=== PATIENT | male | born 1945 | race Caucasian/White ===

== ENCOUNTER 2017-02-20 15:40 | Inpatient (IN) | payer MEDICARE ==
[2017-02-20] MEDS ORDERED: SODIUM CHLORIDE 0.9% 500 ML IV STA (18:05)
[2017-02-20] MEDS ORDERED: ASPIRIN 325 MG TAB PO STA (18:05)
[2017-02-20] MEDS ORDERED: methylPREDNISolone SOD SUCCI 125 MG/2 ML VIAL IV STA (18:05)
[2017-02-20] MEDS ORDERED: IPRATROPIUM-ALBUTEROL 3 ML NEB INHALATION STA (18:06)
[2017-02-20 18:25] LABS: Basophils # (A) 0.1 k/uL (0-0.2); Basophils % (A) 1 %; CH 32.7; Eosinophils # (A) 0.1 k/uL (0-0.7); Eosinophils % (A) 1 %; HCT 57.5 % (39.0-53.0); HDW 2.81; HGB 19.5 gm/dL (13.0-17.5); Luc # (Auto) 0.14; Luc % (Auto) 2; Lymphocytes # (A) 1.1 k/uL (1.0-4.8); Lymphocytes % (A) 14 %; MCH 31.9 pg (25.0-35.0); MCV 93.9 fL (80.0-100.0); Mean Platelet Volume 7.5; Monocytes # (A) 0.4 k/uL (0-1.0); Monocytes % (A) 6 %; Neutrophils # (A) 5.8 k/uL (1.3-7.7); Neutrophils % (A) 77 %; RBC 6.12 m/uL (4.30-5.90); RDW 12.9 % (11.5-15.5); WBC 7.6 k/uL (3.8-10.6)
--- NOTE | 2017-02-20 18:35 | XR ---
EXAMINATION TYPE: XR chest 2V DATE OF EXAM: 02/20/2017 6:19 PM COMPARISON: 08/02/2015 HISTORY: Short of breath TECHNIQUE: Frontal and lateral views of the chest are obtained. FINDINGS: There is no heart failure nor confluent pneumonic infiltrate. Thoracic aorta is atheromato us. There are no hilar masses. Costophrenic angles are clear. There is spurring in the thoracic spine . There is calcification over the left posterior rib consistent with healing rib fracture. IMPRESSION: No active cardiopulmonary disease. Calcification in the left midlung field similar to old exam consistent with granuloma or healing fracture. No adverse change compared to old exam.
[2017-02-20 18:36] LABS: ALT 33 U/L (21-72); AST 26 U/L (17-59); Alkaline Phosphatase 57 U/L (38-126); Anion Gap 11 mmol/L; Blood Urea Nitrogen 16 mg/dL (9-20); Calcium 9.4 mg/dL (8.4-10.2); Carbon Dioxide 33 mmol/L (22-30); Chloride 97 mmol/L (98-107); Glucose 120 mg/dL (74-99); Non-African American GFR(MDRD) >60 (>60 ml/min/1.73 sqM); Potassium 3.7 mmol/L (3.5-5.1); Sodium 141 mmol/L (137-145); Total Bilirubin 1.3 mg/dL (0.2-1.3); Total Protein 7.5 g/dL (6.3-8.2)
--- NOTE | 2017-02-20 18:58 | ED ---
General Adult HPI - General Chief complaint: Shortness of Breath Stated complaint: SOB/COPD Patient Source: patient Mode of arrival: wheelchair Limitations: no limitations - History of Present Illness Initial comments: 71-year-old male with past medical history of COPD without home O2 presented for evaluation of shortness of breath that has been progressively worsening over the last 7 days. He denies any sick contacts but states that during this time he has also developed a cough with mild chest discomfort and wheezing respirations. He states that he does not have an inhaler at home to use although he had been prescribed on before. He denies any sick contacts, fevers, chills, nausea, vomiting. - Related Data Home Medications Medication Instructions Recorded Confirmed Artificial Tears-Hypromellose 1 drops BOTH EYES TID PRN 09/05/16 02/20/17 [Artificial Tear Drops] Metoprolol Succinate [Toprol XL] 50 mg PO DAILY 09/05/16 02/20/17 Albuterol Inhaler [Ventolin Hfa 1 - 2 puff INHALATION RT-QID PRN 02/20/17 Inhaler] FLUoxetine HCL [PROzac] 30 mg PO DAILY 02/20/17 02/20/17 Previous Rx's Medication Instructions Recorded amLODIPine [Norvasc] 10 mg PO DAILY #14 tab 09/07/15 LORazepam [Ativan] 0.5 mg PO DAILY PRN #30 tab 09/20/16 Zolpidem [Ambien] 10 mg PO HS #30 tab 09/20/16 lamoTRIgine [LaMICtal] 100 mg PO DAILY #30 tab 09/20/16 Allergies Allergy/AdvReac Type Severity Reaction Status Date / Time No Known Allergies Allergy Verified 02/20/17 18:33 Review of Systems ROS Statement: Those systems with pertinent positive or pertinent negative responses have been documented in the HPI. ROS Other: All systems not noted in ROS Statement are negative. Constitutional: Denies: fever, chills, weakness, weight change Eyes: Denies: eye pain, eye discharge ENT: Denies: ear pain, throat pain Respiratory: Reports: cough, dyspnea, wheezes. Denies: hemoptysis, stridor Cardiovascular: Reports: chest pain, dyspnea on exertion. Denies: palpitations Endocrine: Denies: fatigue, polydipsia, polyuria Gastrointestinal: Denies: abdominal pain, nausea, vomiting Genitourinary: Denies: urgency, dysuria Musculoskeletal: Denies: back pain, myalgia Skin: Denies: rash, lesions Neurological: Denies: headache, weakness Psychiatric: Reports: anxiety. Denies: depression Hematological/Lymphatic: Denies: easy bleeding, easy bruising Past Medical History Past Medical History: Heart Failure, COPD, GERD/Reflux, Hypertension History of Any Multi-Drug Resistant Organisms: None Reported Past Surgical History: Adenoidectomy Additional Past Surgical History / Comment(s): left wrist surgery 12 years ago, (Pt has AMS, denies adenoidectomy) Past Anesthesia/Blood Transfusion Reactions: No Reported Reaction Past Psychological History: Anxiety, Bipolar, Depression Additional Psychological History / Comment(s): Patient caregiver states that symptoms have been worse since incarceration in June, previous suicide attempt by cutting left wrist "years ago", per patient. Smoking Status: Current every day smoker Past Alcohol Use History: Occasional Additional Past Alcohol Use History / Comment(s): pt states he used to drink daily but quit 6 months ago Past Drug Use History: None Reported - Past Family History Father Family Medical History: Diabetes Mellitus General Exam Limitations: no limitations General appearance: alert, in no apparent distress Head exam: Present: atraumatic, normocephalic, normal inspection Eye exam: Present: normal appearance, PERRL, EOMI. Absent: scleral icterus, conjunctival injection, periorbital swelling ENT exam: Present: normal exam, mucous membranes moist Neck exam: Present: normal inspection. Absent: tenderness, meningismus, lymphadenopathy Respiratory exam: Present: wheezes, accessory muscle use. Absent: respiratory distress, rales, rhonchi, stridor, chest wall tenderness, decreased breath sounds, prolonged expiratory Cardiovascular Exam: Present: regular rate, normal rhythm, normal heart sounds. Absent: systolic murmur, diastolic murmur, rubs, gallop, clicks GI/Abdominal exam: Present: soft, normal bowel sounds. Absent: distended, tenderness, guarding, rebound, rigid Rectal exam: Present: deferred Extremities exam: Present: normal inspection, full ROM, normal capillary refill. Absent: tenderness, pedal edema, joint swelling, calf tenderness Back exam: Present: normal inspection Neurological exam: Present: alert, oriented X3, CN II-XII intact Psychiatric exam: Present: normal affect, normal mood Skin exam: Present: warm, dry, intact, normal color. Absent: rash Course Vital Signs 02/20/17 02/20/17 02/20/17 16:22 18:05 18:21 Temperature 98.1 F Pulse Rate 77 73 Respiratory 18 26 H Rate Blood Pressure 134/81 O2 Sat by Pulse 90 L Oximetry 02/20/17 02/20/17 02/20/17 18:38 19:08 20:07 Temperature Pulse Rate 72 82 80 Respiratory 22 16 Rate Blood Pressure 104/72 137/88 O2 Sat by Pulse 91 L 93 L Oximetry 02/20/17 21:12 Temperature Pulse Rate 78 Respiratory 16 Rate Blood Pressure 132/85 O2 Sat by Pulse 93 L Oximetry EKG Findings - EKG Comments: EKG Findings:: Normal sinus rhythm with ventricular rate of 70, HUMBERTO 184, QRS 92 , QT/QTc 426/460. Medical Decision Making - Medical Decision Making 71-year-old male with past medical history of COPD without home oxygen presented for evaluation of progressively worsening shortness of breath over the last 7 days. He also states he's had mild chest discomfort, raspy respirations, and cough. He doesn't use inhalers. On physical examination he is wheezy throughout all lung cevallos and has no accessory muscle use. Otherwise physical exam is benign. Concern for pneumonia versus URI versus acute exacerbation of COPD. We'll obtain chest x-ray, EKG, labs and provide IV fluids, aspirin, steroids, and breathing treatments. Labs revealed no significant abnormalities and chest x-ray showed no acute process. The patient was reevaluated and continued to have wheezing throughout all cevallos. There is only mild accessory muscle use but improved from earlier. The patient continued to have desaturations when getting up or ambulating. Given his continued wheezing and shortness of breath will admit for acute exacerbation COPD. Dr. Mott was updated on the status of this patient and he accepted the admission with request for consult with pulmonology. Admission are placed in bed request submitted. - Lab Data Result diagrams: 02/20/17 18:00 02/20/17 18:00 Lab Results 02/20/17 02/20/17 02/20/17 Range/Units 18:00 18:00 18:00 WBC 7.6 (3.8-10.6) k/uL RBC 6.12 H (4.30-5.90) m/uL Hgb 19.5 H (13.0-17.5) gm/dL Hct 57.5 H (39.0-53.0) % MCV 93.9 (80.0-100.0) fL MCH 31.9 (25.0-35.0) pg MCHC 34.0 (31.0-37.0) g/dL RDW 12.9 (11.5-15.5) % Plt Count 249 (150-450) k/uL Neutrophils % 77 % Lymphocytes % 14 % Monocytes % 6 % Eosinophils % 1 % Basophils % 1 % Neutrophils # 5.8 (1.3-7.7) k/uL Lymphocytes # 1.1 (1.0-4.8) k/uL Monocytes # 0.4 (0-1.0) k/uL Eosinophils # 0.1 (0-0.7) k/uL Basophils # 0.1 (0-0.2) k/uL Sodium 141 (137-145) mmol/L Potassium 3.7 (3.5-5.1) mmol/L Chloride 97 L (98-107) mmol/L Carbon Dioxide 33 H (22-30) mmol/L Anion Gap 11 mmol/L BUN 16 (9-20) mg/dL Creatinine 0.99 (0.66-1.25) mg/dL Est GFR (MDRD) Af Amer >60 (>60 ml/min/1.73 sqM) Est GFR (MDRD) Non-Af >60 (>60 ml/min/1.73 sqM) Glucose 120 H (74-99) mg/dL Calcium 9.4 (8.4-10.2) mg/dL Total Bilirubin 1.3 (0.2-1.3) mg/dL AST 26 (17-59) U/L ALT 33 (21-72) U/L Alkaline Phosphatase 57 (38-126) U/L Troponin I (0.000-0.034) ng/mL NT-Pro-B Natriuret Pep pg/mL Total Protein 7.5 (6.3-8.2) g/dL Albumin 4.1 (3.5-5.0) g/dL Influenza Type A RNA Not Detected (Not Detectd) Influenza Type B (PCR) Not Detected (Not Detectd) 02/20/17 02/20/17 Range/Units 18:00 18:00 WBC (3.8-10.6) k/uL RBC (4.30-5.90) m/uL Hgb (13.0-17.5) gm/dL Hct (39.0-53.0) % MCV (80.0-100.0) fL MCH (25.0-35.0) pg MCHC (31.0-37.0) g/dL RDW (11.5-15.5) % Plt Count (150-450) k/uL Neutrophils % % Lymphocytes % % Monocytes % % Eosinophils % % Basophils % % Neutrophils # (1.3-7.7) k/uL Lymphocytes # (1.0-4.8) k/uL Monocytes # (0-1.0) k/uL Eosinophils # (0-0.7) k/uL Basophils # (0-0.2) k/uL Sodium (137-145) mmol/L Potassium (3.5-5.1) mmol/L Chloride (98-107) mmol/L Carbon Dioxide (22-30) mmol/L Anion Gap mmol/L BUN (9-20) mg/dL Creatinine (0.66-1.25) mg/dL Est GFR (MDRD) Af Amer (>60 ml/min/1.73 sqM) Est GFR (MDRD) Non-Af (>60 ml/min/1.73 sqM) Glucose (74-99) mg/dL Calcium (8.4-10.2) mg/dL Total Bilirubin (0.2-1.3) mg/dL AST (17-59) U/L ALT (21-72) U/L Alkaline Phosphatase (38-126) U/L Troponin I <0.012 (0.000-0.034) ng/mL NT-Pro-B Natriuret Pep 288 pg/mL Total Protein (6.3-8.2) g/dL Albumin (3.5-5.0) g/dL Influenza Type A RNA (Not Detectd) Influenza Type B (PCR) (Not Detectd) Disposition Clinical Impression: Acute exacerbation of chronic obstructive pulmonary disease (COPD) Disposition: ADMITTED IP TO THIS [facility] Decision to Admit Reason: Admit from EC Decision Date: 02/20/17 Decision Time: 20:26
[2017-02-20] MEDS ORDERED: MORPHINE SULFATE 4 MG/ML SYRINGE IV PRN (20:14)
[2017-02-20] MEDS ORDERED: NALOXONE 0.4 MG/ML 1 ML VIAL IV PRN (20:14)
[2017-02-20] MEDS ORDERED: KETOROLAC 30 MG/ML 1 ML VIAL IVP PRN (20:14)
[2017-02-20] MEDS ORDERED: ACETAMINOPHEN TAB 325 MG TAB PO PRN (20:14)
[2017-02-20] MEDS ORDERED: ALBUTEROL NEBULIZED 2.5 MG/3 ML INHALATION PRN (20:17)
[2017-02-20] MEDS: SODIUM CHLORIDE 0.9% 1,000 ML IV SCH (21:11)
[2017-02-20] MEDS: ZOLPIDEM 10 MG TAB PO SCH (23:05)
[2017-02-21] MEDS: SODIUM CHLORIDE 0.9% 1,000 ML IV SCH ×2 (05:35→15:43)
[2017-02-21 09:39] LABS: Basophils % (A) 0 %; CH 32.4; CHCM 34.3; Eosinophils % (A) 0 %; HCT 52.2 % (39.0-53.0); HDW 2.74; HGB 17.8 gm/dL (13.0-17.5); Luc # (Auto) 0.03; Luc % (Auto) 1; Lymphocytes # (A) 0.6 k/uL (1.0-4.8); Lymphocytes % (A) 10 %; MCH 32.4 pg (25.0-35.0); MCHC 34.2 g/dL (31.0-37.0); MCV 94.8 fL (80.0-100.0); Mean Platelet Volume 6.6; Monocytes # (A) 0.1 k/uL (0-1.0); Monocytes % (A) 2 %; Neutrophils # (A) 4.8 k/uL (1.3-7.7); Neutrophils % (A) 87 %; WBC 5.5 k/uL (3.8-10.6); WBC (Perox) 5.65
[2017-02-21] MEDS: FLUoxetine HCL 10 MG CAP PO SCH (09:47)
[2017-02-21] MEDS: lamoTRIgine 100 MG TAB PO SCH (09:47)
[2017-02-21] MEDS: METOPROLOL SUCCINATE (ER) 50 MG TAB.ER.24H PO SCH (09:47)
[2017-02-21] MEDS: amLODIPine 10 MG TAB PO SCH (09:47)
--- NOTE | 2017-02-21 10:13 | XR ---
EXAMINATION TYPE: XR chest 2V DATE OF EXAM: 02/21/2017 7:16 AM COMPARISON: Prior chest x-ray 20 February 2017 HISTORY: Shortness of breath TECHNIQUE: Frontal and lateral views of the chest are obtained. FINDINGS: No interval change. Cardiomediastinal silhouette, pulmonary vascularity and dorian are stabl e. No evident pneumonia, pneumothorax, or pleural effusion. Prominent lung volume may be indicative o f COPD. Interstitium mildly increased. IMPRESSION: Mild interstitial lung disease, correlate to exclude pulmonary venous hypertension and i nterstitial edema. Follow-up recommended.
[2017-02-21 10:21] LABS: Anion Gap 12 mmol/L; Blood Urea Nitrogen 18 mg/dL (9-20); Calcium 9.1 mg/dL (8.4-10.2); Carbon Dioxide 27 mmol/L (22-30); Chloride 101 mmol/L (98-107); Glucose 222 mg/dL (74-99); Non-African American GFR(MDRD) >60 (>60 ml/min/1.73 sqM); Potassium 4.2 mmol/L (3.5-5.1); Sodium 140 mmol/L (137-145)
--- NOTE | 2017-02-21 11:15 | P.HPIM ---
History of Present Illness -year-old male presented the emergency room with complaints of increasing shortness of breath. Patient states he is long history of COPD patient does have a history of smoking. Recent history of EtOH abuse Review of Systems Respiratory: Reports cough, Reports dyspnea, Reports wheezing Past Medical History Past Medical History: Heart Failure, COPD, GERD/Reflux, Hypertension History of Any Multi-Drug Resistant Organisms: None Reported Past Surgical History: Adenoidectomy Additional Past Surgical History / Comment(s): left wrist surgery 12 years ago, (Pt has AMS, denies adenoidectomy) Past Anesthesia/Blood Transfusion Reactions: No Reported Reaction Past Psychological History: Anxiety, Bipolar, Depression Additional Psychological History / Comment(s): Patient caregiver states that symptoms have been worse since incarceration in June, previous suicide attempt by cutting left wrist "years ago", per patient. Smoking Status: Current every day smoker Past Alcohol Use History: Occasional Additional Past Alcohol Use History / Comment(s): pt states he used to drink daily but quit 6 months ago Past Drug Use History: None Reported - Past Family History Father Family Medical History: Diabetes Mellitus Medications and Allergies Home Medications Medication Instructions Recorded Confirmed Type Artificial Tears-Hypromellose 1 drops BOTH EYES TID PRN 09/05/16 02/20/17 History [Artificial Tear Drops] Metoprolol Succinate [Toprol XL] 50 mg PO DAILY 09/05/16 02/20/17 History Albuterol Inhaler [Ventolin Hfa 1 - 2 puff INHALATION RT-QID PRN 02/20/17 History Inhaler] FLUoxetine HCL [PROzac] 30 mg PO DAILY 02/20/17 02/20/17 History Allergies Allergy/AdvReac Type Severity Reaction Status Date / Time No Known Allergies Allergy Verified 02/20/17 18:33 Physical Exam Vitals: Vital Signs Temp Pulse Pulse Resp BP BP Pulse Ox 02/21/17 07:00 97.8 F 79 18 159/83 90 L 02/20/17 22:15 97.8 F 83 14 136/85 93 L 02/20/17 21:12 78 16 132/85 93 L Intake and Output 02/20/17 02/21/17 02/21/17 22:59 06:59 14:59 Output Total 100 200 Balance -100 -200 Output: Urine 100 200 Other: # Voids 2 1 Weight 116.12 kg - Constitutional General appearance: obese - EENT Eyes: PERRLA Ears: bilateral: normal - Neck Neck: normal ROM - Respiratory Respiratory: bilateral: diminished - Cardiovascular Rhythm: regular - Gastrointestinal General gastrointestinal: soft - Integumentary Integumentary: normal - Neurologic Neurologic: CNII-XII intact - Psychiatric Psychiatric: A&O x's 3, appropriate affect, intact judgment & insight Results CBC & Chem 7: 02/21/17 08:41 02/21/17 08:41 Labs: Abnormal Lab Results - Last 24 Hours (Table) 02/21/17 02/21/17 Range/Units 08:41 08:41 Hgb 17.8 H (13.0-17.5) gm/dL Lymphocytes # 0.6 L (1.0-4.8) k/uL Glucose 222 H (74-99) mg/dL Chest x-ray: report reviewed Thrombosis Risk Factor Assmnt - Choose All That Apply Each Factor Represents 1 point: Obesity (BMI >25) Each Risk Factor Represents 2 Points: Age 61-74 years Thrombosis Risk Factor Assessment Total Risk Factor Score: 3 Thrombosis Risk Factor Assessment Level: Moderate Risk Assessment and Plan Plan: Assessment Acute exacerbation of chronic COPD Nicotine dependence History of GERD History of hypertension Bipolar history Plan Consultation with pulmonology
[2017-02-21] MEDS ORDERED: RX INFO: IV CONTRAST WAS GIVEN 1 EACH MISC MISCELLANE PRN (12:18)
[2017-02-21] MEDS ORDERED: IPRATROPIUM-ALBUTEROL 3 ML NEB INHALATION PRN (12:19)
--- NOTE | 2017-02-21 12:21 | P.CNPUL ---
History of Present Illness Consult date: 02/21/17 Reason for consult: dyspnea, COPD Chief complaint: Cough, shortness of breath History of present illness: This is a 71-year-old male who presented emergency department complaining of cough and shortness of breath for the last 8 days. He denies any sick contacts at home. He states he was coughing up green phlegm however now it is white. He does note wheezing at home. He states he had fevers and chills on and off over the last 8 days. He states he has inhalers at home but hasn't used them in many months because he was feeling better. He also had a PFT done 2 years ago but does not know the results. He used to smoke 3 packs per day he has cut down to one pack per day. He has smoked for 60 years. Review of Systems All systems: negative Past Medical History Past Medical History: Heart Failure, COPD, GERD/Reflux, Hypertension History of Any Multi-Drug Resistant Organisms: None Reported Past Surgical History: Adenoidectomy Additional Past Surgical History / Comment(s): left wrist surgery 12 years ago, (Pt has AMS, denies adenoidectomy) Past Anesthesia/Blood Transfusion Reactions: No Reported Reaction Past Psychological History: Anxiety, Bipolar, Depression Additional Psychological History / Comment(s): Patient caregiver states that symptoms have been worse since incarceration in June, previous suicide attempt by cutting left wrist "years ago", per patient. Smoking Status: Current every day smoker Past Alcohol Use History: Occasional Additional Past Alcohol Use History / Comment(s): pt states he used to drink daily but quit 6 months ago Past Drug Use History: None Reported - Past Family History Father Family Medical History: Diabetes Mellitus Medications and Allergies Home Medications Medication Instructions Recorded Confirmed Type Artificial Tears-Hypromellose 1 drops BOTH EYES TID PRN 09/05/16 02/20/17 History [Artificial Tear Drops] Metoprolol Succinate [Toprol XL] 50 mg PO DAILY 09/05/16 02/20/17 History Albuterol Inhaler [Ventolin Hfa 1 - 2 puff INHALATION RT-QID PRN 02/20/17 History Inhaler] FLUoxetine HCL [PROzac] 30 mg PO DAILY 02/20/17 02/20/17 History Allergies Allergy/AdvReac Type Severity Reaction Status Date / Time No Known Allergies Allergy Verified 02/20/17 18:33 Physical Exam Osteopathic Statement: *. No significant issues noted on an osteopathic structural exam other than those noted in the History and Physical/Consult. Vitals: Vital Signs Temp Pulse Pulse Resp BP BP Pulse Ox 02/21/17 07:00 97.8 F 79 18 159/83 90 L 02/20/17 22:15 97.8 F 83 14 136/85 93 L 02/20/17 21:12 78 16 132/85 93 L Intake and Output 02/20/17 02/21/17 02/21/17 22:59 06:59 14:59 Output Total 100 200 200 Balance -100 -200 -200 Output: Urine 100 200 200 Other: # Voids 2 1 Weight 116.12 kg Gen.: Patient is alert and oriented 3, no acute distress Cardiovascular: Regular rate and rhythm, S1/S2 Lungs: Coarse breath sounds bilaterally, prolonged expiration and expiratory wheezing Abdomen: Soft nontender nondistended positive bowel sounds Extremities: No edema Results - Laboratory Findings CBC and BMP: 02/21/17 08:41 02/21/17 08:41 Abnormal lab findings: Abnormal Labs 02/21/17 02/21/17 08:41 08:41 Hgb 17.8 H Lymphocytes # 0.6 L Glucose 222 H - Diagnostic Findings Chest x-ray: report reviewed, image reviewed Assessment and Plan Plan: Acute on chronic hypoxic respiratory failure Acute exacerbation of COPD Tracheobronchitis Left midlung granuloma Polycythemia, likely secondary to chronic hypoxia Active tobacco abuse GERD Hypertension History of alcohol abuse Depression O2 to maintain saturation greater than equal to 80% Bronchodilators Pulmicort Solu-Medrol taper Antibiotics: Levaquin We'll check CT of the chest regarding granuloma Smoking cessation is highly recommended Sputum culture Influenza is negative Home O2 eval prior to discharge Incentive spirometry and pulmonary hygiene Outpatient pulmonary follow-up with PFT Thank you for this consultation. We will continue to follow along.
[2017-02-21] MEDS: LEVOFLOXACIN 250MG-D5W PMX 250 MG in DEXTROSE/WATER 1 50ML.BAG IVPB SCH (13:08)
--- NOTE | 2017-02-21 15:32 | CT ---
EXAMINATION TYPE: CT chest w con DATE OF EXAM: 02/21/2017 2:49 PM COMPARISON: Chest x-ray 21 February 2017, 02 August 2015 HISTORY: Patient has COPD and is having trouble breathing CT DLP: 1015 mGycm Automated exposure control for dose reduction was used. CONTRAST: CT scan of the chest is performed with IV Contrast, patient injected with 100 mL of Omnipaque 300. FINDINGS: LUNGS: Interlobular septal thickening is present with paraseptal emphysematous changes especially in the upper lobes. Some pleural thickening present in the right upper lobe. There is bronchial wall thi ckening. No evident lung mass. Retained secretions present within the right mainstem bronchus. MEDIASTINUM: Coronary artery calcifications are present. No pleural pericardial effusion. Prevascular node is present measuring 9 mm. AORTA: Atheromatous changes are present. No evident aneurysm or dissection. OTHER: The nodularity seen on chest x-ray is related to remote healed posterior rib fractures. IMPRESSION: Interstitial lung disease, emphysema. Correlate for chronic bronchitis. Coronary artery disease. Old healed rib fractures. No evident lung mass.
[2017-02-21] MEDS: IPRATROPIUM-ALBUTEROL 3 ML NEB INHALATION SCH ×3 (15:34→23:12)
[2017-02-21] MEDS: BUDESONIDE 0.5 MG/2 ML NEBU INHALATION SCH (19:11)
[2017-02-21] MEDS: methylPREDNISolone SOD SUCCI 40 MG/ML 1 ML VIAL IV SCH (20:54)
[2017-02-21] MEDS: ZOLPIDEM 10 MG TAB PO SCH (22:15)
[2017-02-22] MEDS: IBUPROFEN 400 MG TAB PO PRN ×2 (02:35→15:17)
[2017-02-22] MEDS: SODIUM CHLORIDE 0.9% 1,000 ML IV SCH ×3 (02:37→22:36)
[2017-02-22] MEDS: IPRATROPIUM-ALBUTEROL 3 ML NEB INHALATION SCH ×6 (04:19→23:21)
[2017-02-22] MEDS: amLODIPine 10 MG TAB PO SCH (07:43)
[2017-02-22] MEDS: METOPROLOL SUCCINATE (ER) 50 MG TAB.ER.24H PO SCH (07:43)
[2017-02-22] MEDS: methylPREDNISolone SOD SUCCI 40 MG/ML 1 ML VIAL IV SCH ×2 (07:44→20:43)
[2017-02-22] MEDS: lamoTRIgine 100 MG TAB PO SCH (07:44)
[2017-02-22] MEDS: FLUoxetine HCL 10 MG CAP PO SCH (07:44)
[2017-02-22] MEDS: BUDESONIDE 0.5 MG/2 ML NEBU INHALATION SCH ×2 (08:20→20:05)
[2017-02-22] MEDS: LEVOFLOXACIN 250MG-D5W PMX 250 MG in DEXTROSE/WATER 1 50ML.BAG IVPB SCH (11:09)
--- NOTE | 2017-02-22 11:53 | P.PN ---
Subjective Patient states improvement today. Up ambulating to a.m. care. Awaiting results of to the echo. Continue with pulmonology consultation Objective - Vital Signs Vital signs: Vital Signs Temp 96.3 F L 02/22/17 07:00 Pulse 72 02/22/17 08:37 Resp 18 02/22/17 07:00 BP 155/87 02/22/17 07:00 Pulse Ox 93 L 02/22/17 07:00 Intake & Output 02/21/17 02/22/17 02/22/17 18:59 06:59 18:59 Output Total 375 600 Balance -375 -600 Weight 116.12 kg Output: Urine 375 600 Other: Voiding Method Urinal Urinal # Voids 1 - Constitutional General appearance: Present: mild distress - EENT Eyes: Present: PERRLA Ears: bilateral: normal - Neck Neck: Present: normal ROM - Respiratory Respiratory: bilateral: diminished - Cardiovascular Rhythm: regular - Gastrointestinal General gastrointestinal: Present: soft - Integumentary Integumentary: Present: normal - Neurologic Neurologic: Present: CNII-XII intact - Musculoskeletal Musculoskeletal: Present: gait normal - Labs CBC & Chem 7: 02/21/17 08:41 02/21/17 08:41 - Imaging and Cardiology Chest x-ray: report reviewed Assessment and Plan Plan: Assessment acute exacerbation of chronic COPD acute and chronic hypoxic respiratory failure tracheal bronchitis history of smoking history of TELIDA abuse history GERD hypertension Plan continue Levaquin and bronchodilators continue consultation with pulmonology
--- NOTE | 2017-02-22 12:04 | P.PN ---
Subjective Principal diagnosis: Acute exacerbation of COPD Patient seen and examined. Patient states his breathing is a little bit better today. He states he has not had any fevers or chills. His cough is improving. CT results are discussed with the patient. No lung mass or abnormal lymph nodes are found. Possible bibasilar pneumonia with evidence of COPD/emphysema. Objective - Vital Signs Vital signs: Vital Signs Temp 96.3 F L 02/22/17 07:00 Pulse 72 02/22/17 08:37 Resp 18 02/22/17 07:00 BP 155/87 02/22/17 07:00 Pulse Ox 93 L 02/22/17 07:00 Intake & Output 02/21/17 02/22/17 02/22/17 18:59 06:59 18:59 Output Total 375 600 Balance -375 -600 Weight 116.12 kg Output: Urine 375 600 Other: Voiding Method Urinal Urinal # Voids 1 - Exam Gen.: Patient is alert and oriented 3, no acute distress Cardiovascular: Regular rate and rhythm, S1/S2 Lungs: Coarse breath sounds bilaterally, prolonged expiration and expiratory wheezing Abdomen: Soft nontender nondistended positive bowel sounds Extremities: No edema - Labs CBC & Chem 7: 02/21/17 08:41 02/21/17 08:41 Assessment and Plan Plan: Acute on chronic hypoxic respiratory failure Acute exacerbation of COPD Tracheobronchitis Left midlung granuloma Polycythemia, likely secondary to chronic hypoxia Active tobacco abuse GERD Hypertension History of alcohol abuse Depression O2 to maintain saturation greater than equal to 80% Bronchodilators Pulmicort Solu-Medrol taper Antibiotics: Levaquin - increase dose for pneumonia Smoking cessation is highly recommended Sputum culture Influenza is negative Home O2 eval prior to discharge Incentive spirometry and pulmonary hygiene Outpatient pulmonary follow-up with PFT CT results are discussed with the patient.
--- NOTE | 2017-02-22 12:21 | ECHOF ---
Referral Reason:hx chf MEASUREMENTS -------- HEIGHT: 188.0 cm WEIGHT: 116.1 kg BP: 159/83 RVIDd: 3.1 cm (< 3.3) IVSd: 1.4 cm (0.6 - 1.1) LVIDd: 4.2 cm (3.9 - 5.3) LVPWd: 1.4 cm (0.6 - 1.1) IVSs: 2.3 cm LVIDs: 2.8 cm LVPWs: 1.6 cm LA Diam: 4.7 cm (2.7 - 3.8) LAESV Index (A-L): 26.60 ml/m Ao Diam: 3.4 cm (2.0 - 3.7) AV Cusp: 1.6 cm (1.5 - 2.6) LA Diam: 3.7 cm (2.7 - 3.8) MV EXCURSION: 11.540 mm (> 18.000) MV EF SLOPE: 46 mm/s (70 - 150) EPSS: 0.3 cm MV E Chris: 0.65 m/s MV DecT: 279 ms MV A Chris: 0.94 m/s MV E/A Ratio: 0.70 RAP: 5.00 mmHg RVSP: 30.47 mmHg FINDINGS -------- Sinus rhythm with extra systolic beats. This was a technically adequate study. The left ventricular size is normal. There is moderate concentric left ventricular hypertrophy. Overall left ventricular systolic function is normal with, an EF between 55 - 60 %. The right ventricle is normal in size. Normal LA size by volume 22+/-6 ml/m2. The right atrium is normal in size. The aortic valve is trileaflet and appears structurally normal. The mitral valve is normal. There is trace mitral regurgitation. Mild tricuspid regurgitation present. Right ventricular systolic pressure is normal at < 35 mmHg. Trace/mild (physiologic) pulmonic regurgitation. The aortic root size is normal. Normal inferior vena cava with normal inspiratory collapse consistent with estimated right atrial pressure of 5 mmHg. There is no pericardial effusion. CONCLUSIONS -------- 1. Sinus rhythm with extra systolic beats. 2. Right ventricular systolic pressure is normal at < 35 mmHg. 3. Trace/mild (physiologic) pulmonic regurgitation. 4. The aortic root size is normal. 5. Normal inferior vena cava with normal inspiratory collapse consistent with estimated right atrial pressure of 5 mmHg. 6. There is no pericardial effusion. 7. This was a technically adequate study. 8. There is moderate concentric left ventricular hypertrophy. 9. Overall left ventricular systolic function is normal with, an EF between 55 - 60 %. 10. The right ventricle is normal in size. 11. Normal LA size by volume 22+/-6 ml/m2. 12. The aortic valve is trileaflet and appears structurally normal. 13. There is trace mitral regurgitation. 14. Mild tricuspid regurgitation present. FISH HATCHERY INSPECTOR: Elena Winston RDCS
[2017-02-22] MEDS ORDERED: LEVOFLOXACIN 500MG-D5W PMX 500 MG in DEXTROSE/WATER 1 100ML.BAG IVPB SCH (13:00)
[2017-02-22] MEDS: ZOLPIDEM 10 MG TAB PO SCH (22:35)
[2017-02-23] MEDS: LORazepam 0.5 MG TAB PO PRN ×2 (02:30→08:07)
[2017-02-23] MEDS: IPRATROPIUM-ALBUTEROL 3 ML NEB INHALATION SCH ×6 (04:10→23:46)
[2017-02-23] MEDS: METOPROLOL SUCCINATE (ER) 50 MG TAB.ER.24H PO SCH (08:02)
[2017-02-23] MEDS: SODIUM CHLORIDE 0.9% 1,000 ML IV SCH ×2 (08:03→16:01)
[2017-02-23] MEDS: amLODIPine 10 MG TAB PO SCH (08:03)
[2017-02-23] MEDS: methylPREDNISolone SOD SUCCI 40 MG/ML 1 ML VIAL IV SCH ×2 (08:03→21:22)
[2017-02-23] MEDS: lamoTRIgine 100 MG TAB PO SCH (08:03)
[2017-02-23] MEDS: FLUoxetine HCL 10 MG CAP PO SCH (08:03)
[2017-02-23] MEDS: BUDESONIDE 0.5 MG/2 ML NEBU INHALATION SCH ×2 (08:57→21:10)
--- NOTE | 2017-02-23 10:57 | P.PN ---
Subjective Patient states he feels anxious about going home at this time continues with shortness of breath Objective - Vital Signs Vital signs: Vital Signs Temp 97.6 F 02/23/17 07:00 Pulse 77 02/23/17 09:10 Resp 18 02/23/17 07:00 BP 159/91 02/23/17 07:00 Pulse Ox 92 L 02/23/17 08:58 Intake & Output 02/22/17 02/23/17 02/23/17 18:59 06:59 18:59 Output Total 250 425 Balance -250 -425 Weight 118 kg Output: Urine 250 425 Other: Voiding Method Urinal Urinal Urinal # Voids 800 4 # Bowel Movements 0 - Constitutional General appearance: Present: obese - EENT Eyes: Present: PERRLA Ears: bilateral: normal - Neck Neck: Present: normal ROM - Respiratory Respiratory: bilateral: diminished - Cardiovascular Rhythm: regular - Gastrointestinal General gastrointestinal: Present: soft - Integumentary Integumentary: Present: normal - Neurologic Neurologic: Present: CNII-XII intact - Musculoskeletal Musculoskeletal: Present: generalized weakness - Psychiatric Psychiatric Comment(s): Patient appears anxious Psychiatric: Present: A&O x's 3, appropriate affect, intact judgment & insight - Labs CBC & Chem 7: 02/21/17 08:41 02/21/17 08:41 Labs: Microbiology - Last 24 Hours (Table) 02/22/17 20:08 Gram Stain - Preliminary Sputum Assessment and Plan Plan: Assessment Acute exacerbation of chronic COPD Nicotine dependence History of EtOH use History of bipolar History of GERD Hypertension Acute on chronic hypoxic respiratory failure Tracheobronchitis Plan Hopeful discharge home soon patient continues on Levaquin and bronchodilators Continue consultation with pulmonology
[2017-02-23] MEDS: LEVOFLOXACIN 500 MG TAB PO SCH (11:17)
[2017-02-23] MEDS: ALPRAZolam 0.5 MG TAB PO PRN (17:51)
--- NOTE | 2017-02-23 23:00 | PN ---
DATE OF SERVICE: 02/23/2017 Patient is a 71-year-old male who is seen lying in bed. He is awake and alert, still complains of shortness of breath; however, feels a little better every day. Patient is afebrile. Blood pressure is a bit elevated. Is stable, in no acute distress. PHYSICAL EXAMINATION: VITAL SIGNS: Temperature 96.9, heart rate 78, respiratory rate 18. Blood pressure is 142/80. Oxygen saturation is 93% on 2 L oxygen via nasal cannula. HEENT: Head is normocephalic, atraumatic. NECK: Supple. Trachea is midline. LUNGS: Decreased breath sounds throughout and a prolonged expiratory phase. No clear wheezes or rales. HEART: S1 and S2 are heard. Not tachycardic. ABDOMEN: Soft. Bowel sounds are positive. EXTREMITIES: No edema. NEUROLOGIC: Patient is awake and alert. LABS: No new labs to review. IMAGING: No new imaging to review. IMPRESSION: 1. Acute on chronic hypoxic respiratory failure. 2. Acute exacerbation of chronic obstructive pulmonary disease. 3. Tracheobronchitis. 4. Left mid lung granuloma. 5. Polycythemia, likely secondary to chronic hypoxia. 6. Active tobacco abuse. 7. Gastroesophageal reflux disease. 8. Hypertension. 9. History of alcohol abuse. 10. Depression. PLAN: Continue current medications, which have been reviewed. Continue oxygen to maintain saturations greater than or equal to 88%. Continue bronchodilators and aerosolized steroids with IV Solu-Medrol taper. Continue antibiotics. Smoking cessation is highly recommended. Patient will need to have an evaluation for home oxygen prior to discharge. Continue pulmonary hygiene with incentive spirometry. Patient will also need an outpatient pulmonary followup with PFT. Will add Xanax to help patient with his anxiety and follow closely with you, making further changes as necessary.
[2017-02-24] MEDS: ZOLPIDEM 10 MG TAB PO SCH ×2 (00:10→23:44)
[2017-02-24] MEDS: IPRATROPIUM-ALBUTEROL 3 ML NEB INHALATION SCH ×5 (03:32→19:49)
[2017-02-24] MEDS: SODIUM CHLORIDE 0.9% 1,000 ML IV SCH (04:55)
[2017-02-24 07:46] LABS: Glucose,Whole Blood 145 mg/dL (75-99)
[2017-02-24] MEDS: METOPROLOL SUCCINATE (ER) 50 MG TAB.ER.24H PO SCH (08:17)
[2017-02-24] MEDS: FLUoxetine HCL 10 MG CAP PO SCH (08:17)
[2017-02-24] MEDS: lamoTRIgine 100 MG TAB PO SCH (08:17)
[2017-02-24] MEDS: methylPREDNISolone SOD SUCCI 40 MG/ML 1 ML VIAL IV SCH (08:17)
[2017-02-24] MEDS: LEVOFLOXACIN 500 MG TAB PO SCH (08:18)
[2017-02-24] MEDS: amLODIPine 10 MG TAB PO SCH (08:18)
[2017-02-24] MEDS: ALPRAZolam 0.5 MG TAB PO PRN (08:22)
[2017-02-24] MEDS: BUDESONIDE 0.5 MG/2 ML NEBU INHALATION SCH ×2 (09:04→19:49)
--- NOTE | 2017-02-24 11:45 | P.PN ---
Subjective Principal diagnosis: Acute exacerbation of COPD Patient seen and examined. Patient states his breathing feels a little bit better today. He states the Xanax is helping for his anxiety. He states he has been up ambulating to the bathroom and does not get short of breath. He has not been ambulating in the lees yet. Objective - Vital Signs Vital signs: Vital Signs Temp 97.3 F L 02/24/17 07:00 Pulse 66 02/24/17 07:00 Resp 16 02/24/17 07:00 BP 144/95 02/24/17 07:00 Pulse Ox 90 L 02/24/17 07:00 Intake & Output 02/23/17 02/24/17 02/24/17 18:59 06:59 18:59 Intake Total 400 Output Total 675 1275 Balance -675 -875 Weight 119.5 kg Intake: Oral 400 Output: Urine 675 1275 Other: Voiding Method Urinal # Voids 3 1 1 # Bowel Movements 0 1 - Exam Gen.: Patient is alert and oriented 3, no acute distress Cardiovascular: Regular rate and rhythm, S1/S2 Lungs: Diminished breath sounds bilaterally, prolonged expiration Abdomen: Soft nontender nondistended positive bowel sounds Extremities: No edema - Labs CBC & Chem 7: 02/21/17 08:41 02/21/17 08:41 Labs: Abnormal Lab Results - Last 24 Hours (Table) 02/24/17 Range/Units 07:43 POC Glucose (mg/dL) 145 H (75-99) mg/dL Microbiology - Last 24 Hours (Table) 02/22/17 20:08 Gram Stain - Final Sputum Sputum Culture - Final Assessment and Plan Plan: Acute on chronic hypoxic respiratory failure Acute exacerbation of COPD Tracheobronchitis Left midlung granuloma Polycythemia, likely secondary to chronic hypoxia Active tobacco abuse GERD Hypertension History of alcohol abuse Depression O2 to maintain saturation greater than equal to 80% Bronchodilators Pulmicort Solu-Medrol taper - change to oral prednisone today Antibiotics: Levaquin - increase dose for pneumonia Smoking cessation is highly recommended Sputum culture Influenza is negative Home O2 eval prior to discharge Incentive spirometry and pulmonary hygiene Outpatient pulmonary follow-up with PFT CT results are discussed with the patient. Would discharged with a home nebulizer, case management is working on this Okay to discharge from pulmonary standpoint Follow-up in pulmonary office in 1-2 weeks
[2017-02-25 07:28] VITALS: TEMP 97.2
[2017-02-25] MEDS: BUDESONIDE 0.5 MG/2 ML NEBU INHALATION SCH (08:39)
[2017-02-25] MEDS: IPRATROPIUM-ALBUTEROL 3 ML NEB INHALATION SCH ×3 (08:39→16:51)
[2017-02-25] MEDS ORDERED: predniSONE 20 MG TAB PO SCH (09:00)
[2017-02-25] MEDS: amLODIPine 10 MG TAB PO SCH (09:06)
[2017-02-25] MEDS: METOPROLOL SUCCINATE (ER) 50 MG TAB.ER.24H PO SCH (09:06)
[2017-02-25] MEDS: FLUoxetine HCL 10 MG CAP PO SCH (09:06)
[2017-02-25] MEDS: lamoTRIgine 100 MG TAB PO SCH (09:06)
[2017-02-25] MEDS: ALPRAZolam 0.5 MG TAB PO PRN (09:09)
[2017-02-25] MEDS: LEVOFLOXACIN 500 MG TAB PO SCH (13:29)
[2017-02-25 15:05] VITALS: BP 138/88; PULSE 72; RESP 18
--- NOTE | 2017-02-25 15:18 | P.PN ---
Subjective Principal diagnosis: Acute exacerbation of COPD Patient seen and examined. Patient states his breathing is better today. He has been able to walk to the bathroom without any shortness of breath. He will ambulate in the hallways today. He states he feels ready to go home. Objective - Vital Signs Vital signs: Vital Signs Temp 97.2 F L 02/25/17 15:00 Pulse 72 02/25/17 15:00 Resp 18 02/25/17 15:00 BP 138/88 02/25/17 15:00 Pulse Ox 91 L 02/25/17 15:00 Intake & Output 02/24/17 02/25/17 02/25/17 18:59 06:59 18:59 Intake Total 550 160 100 Output Total 150 Balance 400 160 100 Weight 118.5 kg Intake: Intake, IV Titration 160 100 Amount Sodium Chloride 0.9% 1, 160 100 000 ml @ 100 mls/hr IV . Q10H ALIREZA Rx#:[id number] Oral 550 Output: Urine 150 Other: Voiding Method Urinal # Voids 1 4 2 # Bowel Movements 1 - Exam Gen.: Patient is alert and oriented 3, no acute distress Cardiovascular: Regular rate and rhythm, S1/S2 Lungs: Diminished breath sounds bilaterally, prolonged expiration Abdomen: Soft nontender nondistended positive bowel sounds Extremities: No edema - Labs CBC & Chem 7: 02/21/17 08:41 02/21/17 08:41 Assessment and Plan Plan: Acute on chronic hypoxic respiratory failure Acute exacerbation of COPD Tracheobronchitis, possible areas of pneumonia on computed tomography scan Left midlung granuloma Polycythemia, likely secondary to chronic hypoxia Active tobacco abuse GERD Hypertension History of alcohol abuse Depression O2 to maintain saturation greater than equal to 80% Bronchodilators Pulmicort Prednisone taper Antibiotics: Levaquin Smoking cessation is highly recommended Influenza is negative Home O2 eval prior to discharge Incentive spirometry and pulmonary hygiene Outpatient pulmonary follow-up with PFT CT results are discussed with the patient. Would discharged with a home nebulizer, case management is working on this Okay to discharge from pulmonary standpoint Follow-up in pulmonary office in 1-2 weeks
--- NOTE | 2017-02-26 08:19 | DS ---
DATE OF ADMISSION: 02/20/2017 DATE OF DISCHARGE: 02/25/2017 Patient is a very pleasant 71-year-old gentleman admitted with COPD exacerbation and multifocal pneumonia. Minimal pneumonia as per pulmonology. Patient is clinically doing well and patient is being discharged in stable medical condition to home and patient upon ambulation will do home O2 evaluation before discharge. The patient was seen and examined on the day of discharge. Vitals are stable. PHYSICAL EXAMINATION: GENERAL: The patient is alert and oriented x3, not in any acute distress. Well developed, well nourished. HEENT: Pupils are round and equally reacting to light. EOMI. No scleral icterus. No conjunctival pallor. Normocephalic, atraumatic. No pharyngeal erythema. No thyromegaly. CARDIOVASCULAR: S1 and S2 present. No murmurs, rubs, or gallops. PULMONARY: Chest is clear to auscultation, no wheezing or crackles. ABDOMEN: Soft, nontender, nondistended, normoactive bowel sounds. No palpable organomegaly. MUSCULOSKELETAL: No joint swelling or deformity. EXTREMITIES: No cyanosis, clubbing, or pedal edema. NEUROLOGICAL: Gross neurological examination did not reveal any focal deficits. SKIN: No rashes. FINAL DIAGNOSES: 1. Acute hypercapnic respiratory failure secondary to chronic obstructive pulmonary disease exacerbation. 2. Multiple areas of pneumonia and tracheobronchitis, probably pneumococcal pneumonia left midline granuloma. 3. Polycythemia secondary to chronic hypoxemia. 4. Gastroesophageal reflux disease. 5. Hypertension. 6. Depression. Please refer to my depart summary for further details of discharge medications. DISCHARGE DIET: Cardiac. Patient will follow with Dr. Alvin Mott in 3 to 7 days, [facility] care will follow the patient. Activity as tolerated. Spent greater than 35 minutes in total discharge process.
--- NOTE | 2017-02-26 21:57 | P.PN ---
Subjective Date of service 02/24/2017. Personal being dictated for Dr. Huerta. Interval history: This is 71-year-old gentleman admitted with acute COPD exacerbation, acute hypoxic respiratory failure and multiple other medical issues. Breathing continues to improve, but remains hypoxic.Complains of exertional shortness of breath. O2 sat on room air after ambulation 84%, O2 sat on 2 L nasal cannula 93%. Maintained on nebulized bronchodilators, steroids and antibiotics. Denies chest pain, palpitations or increasing shortness of breath. Afebrile. Objective - Vital Signs Vital signs: Vital Signs Temp 96.9 F L 02/24/17 15:00 Pulse 76 02/24/17 15:43 Resp 18 02/24/17 15:00 BP 140/85 02/24/17 15:00 Pulse Ox 92 L 02/24/17 15:00 Intake & Output 02/23/17 02/24/17 02/24/17 18:59 06:59 18:59 Intake Total 400 Output Total 675 1275 Balance -675 -875 Weight 119.5 kg Intake: Oral 400 Output: Urine 675 1275 Other: Voiding Method Urinal Urinal # Voids 3 1 3 # Bowel Movements 0 1 - Exam PHYSICAL EXAM: VITAL SIGNS: As above GENERAL: [Sitting up in bed, no acute distress] HEENT: [Pupils equal conjunctiva normal.] NECK: [Supple, no JVD] RESPIRATORY EFFORT:[Normal] LUNGS: [Diminished, prolonged expiration, no wheezes or crackles or rhonchi] CARDIOVASCULAR[regular S1 and S2, no edema] GI: [Abdomen soft, nontender, positive bowel sounds.] PSYCH: [Alert and oriented -3, mood and affect normal.] NEURO: No focal deficits, moves all 4 extremities, strength and sensation grossly intact - Labs CBC & Chem 7: 02/21/17 08:41 02/21/17 08:41 Labs: Abnormal Lab Results - Last 24 Hours (Table) 02/24/17 Range/Units 07:43 POC Glucose (mg/dL) 145 H (75-99) mg/dL Microbiology - Last 24 Hours (Table) 02/22/17 20:08 Gram Stain - Final Sputum Sputum Culture - Final Assessment and Plan Plan: 1. Acute hypoxic and hypercapnic respiratory failure secondary to acute COPD exacerbation 2. [Multiple areas of pneumonia with tracheobronchitis, probably pneumococcal pneumonia left midline granuloma 3. [Polycythemia secondary to chronic hypoxemia].]. 4. [Gastroesophageal reflux disease]. 5. [Hypertension]. 6. [Depression]. 7. [Continued ongoing nicotine abuse]. 8. History of alcohol abuse. Plan: Continue on current medication regime ,monitoring and symptomatic treatment. Maintain nebulized bronchodilators, systemic steroids, antibiotics. Aggressive pulmonary toileting. Smoking cessation readdressed .Discharge planning in progress for tomorrow. Patient may need home O2, reevaluate tomorrow. Follow closely with pulmonary. Further recommendations to follow. The impression and plan of care has been dictated as directed. : I performed a H&P examination of this patient and discussed the same with the dictator. I agree with the dictator's note. Any additional findings/opinions/ etc. will be noted.
== END 2017-02-25 19:03 | disposition home health service (06) | DRG 190 ==
LOC: EC 15:40 → 4MS4W 20:18
PROVIDERS: ADMIT Family Medicine; ATTEND Family Medicine
DX: J44.0 Chronic obstructive pulmonary disease with (acute) lower respiratory infection (principal); J96.21 Acute and chronic respiratory failure with hypoxia; J13 Pneumonia due to Streptococcus pneumoniae; J84.10 Pulmonary fibrosis, unspecified; Z99.81 Dependence on supplemental oxygen; J96.22 Acute and chronic respiratory failure with hypercapnia; J44.1 Chronic obstructive pulmonary disease with (acute) exacerbation; I10 Essential (primary) hypertension; D75.1 Secondary polycythemia; F41.9 Anxiety disorder, unspecified; F32.9 Major depressive disorder, single episode, unspecified; E66.9 Obesity, unspecified; R53.1 Weakness; F17.200 Nicotine dependence, unspecified, uncomplicated; K21.9 Gastro-esophageal reflux disease without esophagitis; Z91.5 Personal history of self-harm; Z79.899 Other long term (current) drug therapy; Z83.3 Family history of diabetes mellitus; Z71.6 Tobacco abuse counseling; Z68.33 Body mass index [BMI] 33.0-33.9, adult; Z86.79 Personal history of other diseases of the circulatory system
CPT/HCPCS: 36415; 71020; 71260; 80048; 80053; 83880; 84484; 85025; 87070; 87205; 87502; 93005; 93306; 94640; 94760; 96361; 96374; 99285

== ENCOUNTER 2018-03-07 07:33 | Day surgery (SDC) | payer MEDICARE ==
[2018-03-06 12:18] VITALS: BMI 38.1
[~2018-03-07 07:33] MED LIST: LACTATED RINGERS 1,000 ML IV SCH
--- NOTE | 2018-03-07 08:08 | P.GSHP ---
History of Present Illness H&P Date: 03/07/18 CHIEF COMPLAINT: Colon screen HISTORY OF PRESENT ILLNESS: The patient is a 72-year-old male who presents for colon screen. Lower endoscopy was offered for further evaluation and management. PAST MEDICAL HISTORY: Please see list. PAST SURGICAL HISTORY: Please see list. MEDICATIONS: Please see list. ALLERGIES: Please see list. SOCIAL HISTORY: No illicit drug use FAMILY HISTORY: No reports of Crohn disease or ulcerative colitis. REVIEW OF ORGAN SYSTEMS: CONSTITUTIONAL: No reports of fevers or chills. PHYSICAL EXAM: VITAL SIGNS: Stable GENERAL: Well-developed pleasant in no acute distress. HEENT: No scleral icterus. Extraocular movements grossly intact. Moist buccal mucosa. NECK: Supple without lymphadenopathy. CHEST: Unlabored respirations. Equal bilateral excursions. CARDIOVASCULAR: Regular rate and rhythm. Distal 2+ pulses. ABDOMEN: Soft, nontender, nondistended. MUSCULOSKELETAL: No clubbing, cyanosis, or edema. ASSESSMENT: 1. Colon screen. PLAN: 1. Recommend proceeding with a lower endoscopy Past Medical History Past Medical History: Heart Failure, COPD, GERD/Reflux, Hypertension Additional Past Medical History / Comment(s): C/O LOOSE BOWELS. SEV UTI'S, HAS F/U DR APPRuthie TODAY. NO CURRENT CPAP IN PAST YEAR. History of Any Multi-Drug Resistant Organisms: None Reported Past Surgical History: Adenoidectomy Additional Past Surgical History / Comment(s): left wrist surgery 12 years ago, (Pt has AMS, denies adenoidectomy) Past Anesthesia/Blood Transfusion Reactions: No Reported Reaction Additional Psychological History / Comment(s): Patient caregiver states that symptoms have been worse since incarceration in June, previous suicide attempt by cutting left wrist "years ago", per patient. Past Alcohol Use History: Occasional Additional Past Alcohol Use History / Comment(s): pt states he used to drink daily but quit 6 months ago - Past Family History Mother Family Medical History: Cancer Father Family Medical History: Diabetes Mellitus Medications and Allergies Home Medications Medication Instructions Recorded Confirmed Type amLODIPine [Norvasc] 10 mg PO DAILY #14 tab 09/07/15 03/06/18 Rx Artificial Tears-Hypromellose 1 drops BOTH EYES TID PRN 09/05/16 03/06/18 History [Artificial Tear Drops] Metoprolol Succinate [Toprol XL] 50 mg PO DAILY 09/05/16 03/06/18 History lamoTRIgine [LaMICtal] 100 mg PO DAILY #30 tab 09/20/16 03/06/18 Rx Albuterol Inhaler [Ventolin Hfa 1 - 2 puff INHALATION RT-QID PRN 02/20/17 History Inhaler] FLUoxetine HCL [PROzac] 20 mg PO DAILY 02/20/17 03/06/18 History ARIPiprazole [Abilify] 5 mg PO DAILY 03/06/18 03/06/18 History Albuterol Nebulized [Ventolin 2.5 mg INHALATION QID PRN 03/06/18 03/06/18 History Nebulized] Fluticasone Nasal [place] [Flonase 1 - 2 spray EA NOSTRIL DAILY PRN 03/06/1803/06 History Nasal [place]] LORazepam [Ativan] 0.5 mg PO BID PRN 03/06/18 03/06/18 History Multivitamins, Thera [Multivitamin 1 tab PO DAILY 03/06/18 03/06/18 History (formulary)] Symbicort Inhaler 2 puff INHALATION DAILY 03/06/18 History Zolpidem [Ambien] 10 mg PO HS PRN 03/06/18 03/06/18 History busPIRone HCl [Buspar] 10 mg PO BID 03/06/18 03/06/18 History Allergies Allergy/AdvReac Type Severity Reaction Status Date / Time No Known Allergies Allergy Verified 03/06/18 11:54
[2018-03-07] MEDS ORDERED: LIDOCAINE 1% 20 ML VIAL (10MG/ML) FOR IV START INTRADERMA ONE (08:20)
[2018-03-07] MEDS ORDERED: LIDOCAINE 1% INJ 10MG/ML (20 ML MDV) ONE (08:55)
[2018-03-07] MEDS ORDERED: PROPOFOL 10 MG/ML 20 ML VIAL IV ONE (08:55)
--- NOTE | 2018-03-07 10:28 | P.PCN ---
Date of Procedure: 03/07/18 Description of Procedure: PREOPERATIVE DIAGNOSIS: Colonoscopy screening. Personal history of colon polyps. POSTOPERATIVE DIAGNOSIS: Colonoscopy screening. Personal history of colon polyps. Multiple tubular adenomas throughout the colon. Scattered diverticulosis Internal hemorrhoids, grade 2. OPERATION: Colonoscopy to the ileocecal valve and appendiceal orifice. Colonoscopy with multiple snare biopsies. Colonoscopy with multiple cold forceps biopsies. SURGEON: Liz Reece MD. ANESTHESIA: MAC. INDICATIONS: The patient is a 72-year-old male who presents for colonoscopy screening. Last colonoscopy was over 8 years ago. Benefits and risks were described and informed consent was obtained. DESCRIPTION OF PROCEDURE: The patient had undergone Gatorade, MiraLAX and Dulcolax prep. He had been brought into the operating room and laid in the left lateral decubitus position. After adequate intravenous sedation, the rectum was examined with 2% lidocaine jelly. No external hemorrhoids were encountered. The rectal tone was within normal limits. No lesions were palpated in the rectal vault. An Olympus colonoscope was advanced until the ileocecal valve and appendiceal orifice were viewed. The prep was fair. The scope was removed with visualization of each mucosal fold. Scattered diverticulosis was encountered. Multiple colonic polyps were found and cold forcep biopsy or snare polypectomy. No evidence of focal colitis was found. Retroflexion of the scope demonstrated grade 2 internal hemorrhoids without active bleeding or inflammation. The colon was desufflated. The patient had tolerated the procedure well. Withdrawal time was over 6 minutes. FINDINGS: Internal hemorrhoids, grade 2 No external hemorrhoids. No arteriovenous malformations. Removal of 3 polyps: - Snare polypectomy x 2 abdomen at mid transverse colon, 5 mm tubulovillous adenoma polyp. - Snare polypectomy 30 cm from the anal verge, 5 mm flat villous adenoma polyp. - Cold forceps biopsy at ascending colon, 4 mm polyp. No focal colitis. Scattered diverticulosis RECOMMENDATIONS: Given severity of tubular adenomas, recommend repeat colonoscopy 1 year, 2019. Plan - Discharge Summary New Discharge Prescriptions: No Action amLODIPine [Norvasc] 10 mg PO DAILY #14 tab Metoprolol Succinate [Toprol XL] 50 mg PO DAILY Artificial Tears-Hypromellose [Artificial Tear Drops] 1 drops BOTH EYES TID PRN PRN Reason: Dry Eye(S) lamoTRIgine [LaMICtal] 100 mg PO DAILY #30 tab FLUoxetine HCL [PROzac] 20 mg PO DAILY Albuterol Inhaler [Ventolin Hfa Inhaler] 1 - 2 puff INHALATION RT-QID PRN PRN Reason: Shortness Of Breath Albuterol Nebulized [Ventolin Nebulized] 2.5 mg INHALATION QID PRN PRN Reason: Shortness Of Breath ARIPiprazole [Abilify] 5 mg PO DAILY busPIRone HCl [Buspar] 10 mg PO BID Fluticasone Nasal [place] [Flonase Nasal [place]] 1 - 2 spray EA NOSTRIL DAILY PRN PRN Reason: ALLERGIES LORazepam [Ativan] 0.5 mg PO BID PRN PRN Reason: Anxiety Multivitamins, Thera [Multivitamin (formulary)] 1 tab PO DAILY Symbicort Inhaler 2 puff INHALATION DAILY Zolpidem [Ambien] 10 mg PO HS PRN PRN Reason: Insomnia Discharge Medication List amLODIPine [Norvasc] 10 mg PO DAILY #14 tab 09/07/15 [Rx] Artificial Tears-Hypromellose [Artificial Tear Drops] 1 drops BOTH EYES TID PRN 09/05/16 [History] Metoprolol Succinate [Toprol XL] 50 mg PO DAILY 09/05/16 [History] lamoTRIgine [LaMICtal] 100 mg PO DAILY #30 tab 09/20/16 [Rx] Albuterol Inhaler [Ventolin Hfa Inhaler] 1 - 2 puff INHALATION RT-QID PRN [History] FLUoxetine HCL [PROzac] 20 mg PO DAILY 02/20/17 [History] ARIPiprazole [Abilify] 5 mg PO DAILY 03/06/18 [History] Albuterol Nebulized [Ventolin Nebulized] 2.5 mg INHALATION QID PRN 03/06/18 [ History] Fluticasone Nasal [place] [Flonase Nasal [place]] 1 - 2 spray EA NOSTRIL DAILY PRN 03/06/18 [History] LORazepam [Ativan] 0.5 mg PO BID PRN 03/06/18 [History] Multivitamins, Thera [Multivitamin (formulary)] 1 tab PO DAILY 03/06/18 [History ] Symbicort Inhaler 2 puff INHALATION DAILY 03/06/18 [History] Zolpidem [Ambien] 10 mg PO HS PRN 03/06/18 [History] busPIRone HCl [Buspar] 10 mg PO BID 03/06/18 [History]
[2018-03-07 11:02] VITALS: BP 118/74; PULSE 74; RESP 16
== END 2018-03-07 11:03 | disposition home or self-care (01) ==
LOC: ORWHC2ENDO 07:33
PROVIDERS: ATTEND Surgery Plastic and Reconstructive Surgery
DX: D12.2 Benign neoplasm of ascending colon (principal); D12.3 Benign neoplasm of transverse colon; I11.0 Hypertensive heart disease with heart failure; I50.9 Heart failure, unspecified; K57.30 Diverticulosis of large intestine without perforation or abscess without bleeding; K64.1 Second degree hemorrhoids; E66.9 Obesity, unspecified; F17.210 Nicotine dependence, cigarettes, uncomplicated; G47.33 Obstructive sleep apnea (adult) (pediatric); Z68.38 Body mass index [BMI] 38.0-38.9, adult; K21.9 Gastro-esophageal reflux disease without esophagitis; J44.9 Chronic obstructive pulmonary disease, unspecified; Z86.010 Personal history of colon polyps; Z79.899 Other long term (current) drug therapy
CPT/HCPCS: 88305; 45385; 45380; J2001; J2704

== ENCOUNTER → 2018-03-12 | Outpatient (CLI) | payer MEDICARE ==
--- NOTE | 2018-03-13 05:56 | US ---
EXAMINATION TYPE: US kidneys/renal and bladder DATE OF EXAM: 03/12/2018 COMPARISON: NONE CLINICAL HISTORY: N39.0 UTI. recent UTI EXAM MEASUREMENTS: Right Kidney: 9.7 x 5.1 x 6.6 cm Left Kidney: 12.4 x 4.1 x 6.8 cm Right Kidney: No hydronephrosis or masses seen Left Kidney: No hydronephrosis or masses seen Bladder: 2.7cn echogenic area noted within posterior portion of the bladder, non mobile, non vascular and does not appear related to prostate Bilateral Jets seen: no incidental finding of GB stones seen There is no evidence for hydronephrosis at this point in time. Cortical thinning in both kidneys is seen. Asymmetric diminished size right kidney noted. No nephrolithiasis is seen. No renal masses are identified on images saved. The urinary bladder is not greatly distended. There is possible intralu ashli mass believed not related to prostate by technologist during real-time scanning. Bilateral ure teral jets are not seen. IMPRESSION: No hydronephrosis is evident bilaterally. Cannot exclude bladder wall mass, advise further investigat ion with CT urogram or cystogram or direct visualization.
--- NOTE | 2018-03-13 08:24 | XR ---
Lumbar spine HISTORY: Low back pain 3 views of the lumbar spine No comparisons There is a mild spinal curvature which may be positional. There is multilevel spondylosis present. Sc lerosis present in the posterior elements is compatible with facet arthropathy. Minimal anterolisthes is grade 1 L4-5. Loss of disc height present at the intervertebral levels. Interval retrolisthesis gr rodriguez 1 L2-3. Vacuum phenomenon present at multiple intervertebral levels. Bone mineralization mildly r educed. Atherosclerotic vascular calcifications noted within the aorta, the aorta is thought to be ec tatic. IMPRESSION: Degenerative disc disease, facet arthropathy, possible aortic ectasia, consider follow-up . Additional findings above.
== END | disposition home or self-care (01) ==
LOC: RADUSWWP 16:14
PROVIDERS: ATTEND Family Medicine
DX: M43.16 Spondylolisthesis, lumbar region (principal); M51.36 Other intervertebral disc degeneration, lumbar region; M47.816 Spondylosis without myelopathy or radiculopathy, lumbar region; M46.96 Unspecified inflammatory spondylopathy, lumbar region; N39.0 Urinary tract infection, site not specified
CPT/HCPCS: 72100; 76770

== ENCOUNTER → 2018-04-03 | Outpatient (CLI) | payer MEDICARE ==
--- NOTE | 2018-04-03 14:59 | MR ---
EXAMINATION TYPE: MR lumbar spine wo/w con DATE OF EXAM: 04/03/2018 2:20 PM COMPARISON: NONE HISTORY: Lumbago / Abdominal aortic ectasia CONTRAST: The patient was injected with 13 mL intravenous Gadavist gadolinium contrast. Multiplanar, MultiSpin echo imaging of the lumbar spine was performed. L1-L2: Mild to moderate disc desiccation is noted. No herniation, protrusion or disc bulging. No can al stenosis is present. Foramina are patent bilaterally. L2-L3: Moderate to severe disc desiccation. Circumferential disc bulge noted greatest posteriorly. Ef facement of the of the ventral thecal sac. Hypertrophy of the ligamentum flavum and facet joint arthr opathy resulting in mild central stenosis. Bilateral foraminal encroachment noted. L3-L4: Moderate to severe disc desiccation. Circumferential disc bulge noted greatest posteriorly. Ef facement of the of the ventral thecal sac. Hypertrophy of the ligamentum flavum and facet joint arthr opathy resulting in mild central stenosis. Bilateral foraminal encroachment noted right greater than left. L4-L5: Grade 1 anterolisthesis L4 and L5 measuring 2 mm. Severe disc desiccation. Posterior disc bulg e without evidence for disc herniation. Left hemilaminectomy changes noted without evidence for recur rent disease. Granulation tissue. L5-S1: Mild disc desiccation. No herniation, protrusion or disc bulging. No canal stenosis is presen t. Foramina are patent bilaterally. Lumbar segments are intact. No paraspinal masses are identified. Conus medullaris has a normal appe arance. IMPRESSION: 1. Multilevel degenerative disc disease. 2. Mild central stenosis at L2-3 and L3-4 as noted above.
--- NOTE | 2018-04-03 16:24 | US ---
EXAMINATION TYPE: US duplex aorta DATE OF EXAM: 04/03/2018 COMPARISON: NONE CLINICAL HISTORY: I77.811 Abdominal aortic ectasia. Aortic ectasia. Smoker. HTN. No family hx of AA A. EXAM MEASUREMENTS: Abdominal Aorta: Proximal: 2.4 x 2.2 cm Mid: 2.2 x 2.2 cm Distal: 2.2 x 2.2 cm Bifurcation: Right- 1.1 x 1.6 cm Left- 1.2 x 1.4 cm Limited exam due to patient body habitus and overlying bowel gas. No AAA seen. Atherosclerotic changes seen. IMPRESSION: 1. Atherosclerotic changes. No diagnostic evidence of aneurysm as visualized.
== END | disposition home or self-care (01) ==
LOC: RADMRIMAIN 13:01
PROVIDERS: ATTEND Family Medicine
DX: M48.061 Spinal stenosis, lumbar region without neurogenic claudication (principal); I70.0 Atherosclerosis of aorta
CPT/HCPCS: 82565; 93979; 72158; 36415; A9581

== ENCOUNTER 2018-11-23 16:53 | Inpatient (IN) | payer MEDICARE ==
[2018-11-23] MEDS ORDERED: methylPREDNISolone SOD SUCCI 125 MG/2 ML VIAL IV STA (17:29)
[2018-11-23] MEDS ORDERED: ALBUTEROL NEBULIZED 2.5 MG/3 ML INHALATION STA (17:29)
[2018-11-23] MEDS ORDERED: IPRATROPIUM 0.5 MG/2.5 ML NEBU INHALATION STA (17:29)
[2018-11-23] MEDS ORDERED: SODIUM CHLORIDE 0.9% 500 ML 500 ML IV STA (17:29)
--- NOTE | 2018-11-23 17:31 | ED ---
General Adult HPI - General Chief complaint: Weakness Stated complaint: weakness Time Seen by Provider: 11/23/18 17:08 Source: patient, family, RN notes reviewed, old records reviewed Mode of arrival: ambulatory Limitations: no limitations - History of Present Illness Initial comments: 73-year-old male presenting with several complaints, complaint of generalized weakness, urinary incontinence and he frequently urination as well as cough and dyspnea. Cough productive of green sputum. Patient has history of COPD and is currently smoking. Denies fever or chills. Denies abdominal pain. Denies chest pain. Denies vomiting or diarrhea. Denies focal numbness or weakness. He feels his legs are both very weak. No headache. No vision changes. - Related Data Home Medications Medication Instructions Recorded Confirmed Artificial Tears-Hypromellose 1 drops BOTH EYES TID PRN 09/05/16 11/23/18 [Artificial Tear Drops] Metoprolol Succinate [Toprol XL] 50 mg PO DAILY 09/05/16 11/23/18 FLUoxetine HCL [PROzac] 30 mg PO DAILY 02/20/17 11/23/18 ARIPiprazole [Abilify] 5 mg PO DAILY 03/06/18 11/23/18 Multivitamins, Thera [Multivitamin 1 tab PO DAILY 03/06/18 11/23/18 (formulary)] busPIRone HCl [Buspar] 10 mg PO BID 03/06/18 11/23/18 Albuterol Nebulized [Ventolin 2.5 mg INHALATION RT-TID 11/23/18 11/23/18 Nebulized] Levocetirizine Dihydrochloride 5 mg PO DAILY 11/23/18 11/23/18 [Xyzal] Loperamide HCl [Imodium A-D] 2 mg PO HS 11/23/18 11/23/18 Previous Rx's Medication Instructions Recorded amLODIPine [Norvasc] 10 mg PO DAILY #14 tab 09/07/15 lamoTRIgine [LaMICtal] 100 mg PO DAILY #30 tab 09/20/16 Allergies Allergy/AdvReac Type Severity Reaction Status Date / Time No Known Allergies Allergy Verified 11/23/18 17:22 Review of Systems ROS Statement: Those systems with pertinent positive or pertinent negative responses have been documented in the HPI. ROS Other: All systems not noted in ROS Statement are negative. Past Medical History Past Medical History: Heart Failure, COPD, GERD/Reflux, Hypertension History of Any Multi-Drug Resistant Organisms: None Reported Past Surgical History: Adenoidectomy Additional Past Surgical History / Comment(s): left wrist surgery 12 years ago, (Pt has AMS, denies adenoidectomy) Past Anesthesia/Blood Transfusion Reactions: No Reported Reaction Past Psychological History: Anxiety, Bipolar, Depression Smoking Status: Current every day smoker Past Alcohol Use History: Occasional Past Drug Use History: None Reported - Past Family History Mother Family Medical History: Cancer Father Family Medical History: Diabetes Mellitus General Exam Limitations: no limitations General appearance: alert, in no apparent distress Head exam: Present: atraumatic, normocephalic Eye exam: Present: normal appearance, PERRL, EOMI ENT exam: Present: mucous membranes dry Neck exam: Present: normal inspection. Absent: tenderness, meningismus Respiratory exam: Present: wheezes, decreased breath sounds. Absent: respiratory distress Cardiovascular Exam: Present: regular rate, normal rhythm GI/Abdominal exam: Present: soft. Absent: distended, tenderness Extremities exam: Present: normal inspection, normal capillary refill. Absent: pedal edema, calf tenderness Neurological exam: Present: alert, oriented X3, CN II-XII intact, reflexes normal (2+ bilateral patellar reflexes). Absent: motor sensory deficit (Normal sensory and motor exam, no sensory deficits.) Psychiatric exam: Present: normal affect, normal mood Skin exam: Present: warm, dry, intact. Absent: cyanosis, diaphoretic Course Vital Signs 11/23/18 11/23/18 16:58 18:09 Temperature 98 F Pulse Rate 74 74 Respiratory 28 H Rate Blood Pressure 118/75 O2 Sat by Pulse 95 Oximetry EKG Findings - EKG Comments: EKG Findings:: EKG: Normal sinus rhythm, sinus arrhythmia, low voltage, rate 78 , LA interval 200, QRS duration 76, QTC 424, no ST segment changes Medical Decision Making - Medical Decision Making 73-year-old male presenting with generalized weakness, cough, dyspnea cough productive of green sputum. Patient has decreased air entry bilaterally with expiratory wheezing. History of COPD. Weakness is generalized with no focal findings. Patient has normal CBC, normal CMP, troponin negative, chest x-ray negative for pneumonia or acute findings. After initial treatment with epidural , Atrovent, and steroids, patient reevaluated, he he remains mildly tachypneic. Oxygen saturation 90% on 2 L. Patient does not normally use oxygen at home. He will be admitted for COPD exacerbation, generalized weakness, bilateral upper and lower extremity weakness. Case discussed with Dr. Max, will admit. Patient had complete urinary incontinence, urinalysis does show signs of urinary tract infection with both 150 red cells and greater than 182 white blood cells. Urine culture is pending. Patient is started on Rocephin for empirical treatment of urinary tract infection. This may be contributing to patient's weakness as well. - Lab Data Result diagrams: 11/23/18 17:37 11/23/18 17:37 Lab Results 11/23/18 11/23/18 11/23/18 Range/Units 17:37 17:37 17:37 WBC 7.2 (3.8-10.6) k/uL RBC 5.11 (4.30-5.90) m/uL Hgb 15.9 (13.0-17.5) gm/dL Hct 48.7 (39.0-53.0) % MCV 95.2 (80.0-100.0) fL MCH 31.1 (25.0-35.0) pg MCHC 32.7 (31.0-37.0) g/dL RDW 13.8 (11.5-15.5) % Plt Count 162 (150-450) k/uL Neutrophils % 77 % Lymphocytes % 13 % Monocytes % 5 % Eosinophils % 2 % Basophils % 0 % Neutrophils # 5.6 (1.3-7.7) k/uL Lymphocytes # 0.9 L (1.0-4.8) k/uL Monocytes # 0.3 (0-1.0) k/uL Eosinophils # 0.2 (0-0.7) k/uL Basophils # 0.0 (0-0.2) k/uL PT (9.0-12.0) sec INR (<1.2) APTT (22.0-30.0) sec Sodium 139 (137-145) mmol/L Potassium 4.2 (3.5-5.1) mmol/L Chloride 104 (98-107) mmol/L Carbon Dioxide 27 (22-30) mmol/L Anion Gap 8 mmol/L BUN 17 (9-20) mg/dL Creatinine 0.99 (0.66-1.25) mg/dL Est GFR (CKD-EPI)AfAm 86 (>60 ml/min/1.73 sqM) Est GFR (CKD-EPI)NonAf 74 (>60 ml/min/1.73 sqM) Glucose 111 H (74-99) mg/dL Calcium 8.8 (8.4-10.2) mg/dL Magnesium 2.1 (1.6-2.3) mg/dL Total Bilirubin 0.6 (0.2-1.3) mg/dL AST 25 (17-59) U/L ALT 30 (21-72) U/L Alkaline Phosphatase 64 (38-126) U/L Total Creatine Kinase 79 (55-170) U/L CK-MB (CK-2) 1.0 (0.0-2.4) ng/mL CK-MB (CK-2) Rel Index 1.3 Troponin I <0.012 (0.000-0.034) ng/mL Total Protein 6.8 (6.3-8.2) g/dL Albumin 3.7 (3.5-5.0) g/dL 11/23/18 Range/Units 17:37 WBC (3.8-10.6) k/uL RBC (4.30-5.90) m/uL Hgb (13.0-17.5) gm/dL Hct (39.0-53.0) % MCV (80.0-100.0) fL MCH (25.0-35.0) pg MCHC (31.0-37.0) g/dL RDW (11.5-15.5) % Plt Count (150-450) k/uL Neutrophils % % Lymphocytes % % Monocytes % % Eosinophils % % Basophils % % Neutrophils # (1.3-7.7) k/uL Lymphocytes # (1.0-4.8) k/uL Monocytes # (0-1.0) k/uL Eosinophils # (0-0.7) k/uL Basophils # (0-0.2) k/uL PT 10.7 (9.0-12.0) sec INR 1.0 (<1.2) APTT 27.1 (22.0-30.0) sec Sodium (137-145) mmol/L Potassium (3.5-5.1) mmol/L Chloride (98-107) mmol/L Carbon Dioxide (22-30) mmol/L Anion Gap mmol/L BUN (9-20) mg/dL Creatinine (0.66-1.25) mg/dL Est GFR (CKD-EPI)AfAm (>60 ml/min/1.73 sqM) Est GFR (CKD-EPI)NonAf (>60 ml/min/1.73 sqM) Glucose (74-99) mg/dL Calcium (8.4-10.2) mg/dL Magnesium (1.6-2.3) mg/dL Total Bilirubin (0.2-1.3) mg/dL AST (17-59) U/L ALT (21-72) U/L Alkaline Phosphatase (38-126) U/L Total Creatine Kinase (55-170) U/L CK-MB (CK-2) (0.0-2.4) ng/mL CK-MB (CK-2) Rel Index Troponin I (0.000-0.034) ng/mL Total Protein (6.3-8.2) g/dL Albumin (3.5-5.0) g/dL Disposition Clinical Impression: Dehydration, Acute exacerbation of chronic obstructive pulmonary disease (COPD) , Urinary tract infection Disposition: ADMITTED IP TO THIS HOSP Condition: Stable Is patient prescribed a controlled substance at d/c from ED?: No Referrals: Avlin Mott MD [Primary Care Provider] - 1-2 days Time of Disposition: 21:01
[2018-11-23 17:53] LABS: Basophils % (A) 0 %; Eosinophils # (A) 0.2 k/uL (0-0.7); Eosinophils % (A) 2 %; HCT 48.7 % (39.0-53.0); HGB 15.9 gm/dL (13.0-17.5); Lymphocytes # (A) 0.9 k/uL (1.0-4.8); Lymphocytes % (A) 13 %; MCH 31.1 pg (25.0-35.0); MCHC 32.7 g/dL (31.0-37.0); MCV 95.2 fL (80.0-100.0); Mean Platelet Volume 6.9; Monocytes # (A) 0.3 k/uL (0-1.0); Monocytes % (A) 5 %; Neutrophils # (A) 5.6 k/uL (1.3-7.7); Neutrophils % (A) 77 %; Platelet Count 162 k/uL (150-450); RBC 5.11 m/uL (4.30-5.90); RDW 13.8 % (11.5-15.5); WBC 7.2 k/uL (3.8-10.6)
[2018-11-23 18:00] LABS: Partial Thromboplastin Time 27.1 sec (22.0-30.0); Prothrombin Time 10.7 sec (9.0-12.0)
[2018-11-23 18:06] LABS: Albumin 3.7 g/dL (3.5-5.0); Calcium 8.8 mg/dL (8.4-10.2); Creatine Kinase 79 U/L (55-170); Magnesium 2.1 mg/dL (1.6-2.3); Potassium 4.2 mmol/L (3.5-5.1); Total Bilirubin 0.6 mg/dL (0.2-1.3); Total Protein 6.8 g/dL (6.3-8.2)
[2018-11-23 18:20] LABS: Troponin I <0.012 ng/mL (0.000-0.034)
--- NOTE | 2018-11-23 19:24 | XR ---
EXAMINATION TYPE: XR chest 2V DATE OF EXAM: 11/23/2018 COMPARISON: 01/24/2018 HISTORY: Weakness TECHNIQUE: Frontal and lateral views of the chest are obtained. FINDINGS: There is no heart failure nor confluent pneumonic infiltrate. There is some coarsening of interstitial markings. There are chest leads. IMPRESSION: Mild pulmonary fibrosis. No active cardiopulmonary disease. No change.
[2018-11-23] MEDS ORDERED: IPRATROPIUM-ALBUTEROL 3 ML NEB INHALATION PRN (20:56)
[2018-11-23 21:15] LABS: Appearance,Urine Turbid (Clear); Bilirubin,Urine Negative (Negative); Blood,Urine Small (Negative); Color,Urine Yellow; Glucose,Urine (UA) Negative (Negative); Ketones,Urine Negative (Negative); Leukocyte Esterase,Urine Large (Negative); Mucus,Urine Many /hpf; Nitrite,Urine Positive (Negative); PH, Urine 5.5 (5.0-8.0); Protein,Urine 2+ (Negative); RBC,Urine 156 /hpf (0-5); Urobilinogen,Urine <2.0 mg/dL (<2.0); WBC,Urine >182 /hpf (0-5)
[2018-11-23 23:38] VITALS: BMI 37.5
[2018-11-24] MEDS ORDERED: METOPROLOL SUCCINATE (ER) 50 MG TAB.ER.24H PO ONE (00:28)
[2018-11-24] MEDS: methylPREDNISolone SOD SUCCI 125 MG/2 ML VIAL IV SCH ×4 (00:39→17:06)
[2018-11-24] MEDS: lamoTRIgine 100 MG TAB PO SCH ×2 (00:39→22:07)
[2018-11-24] MEDS: amLODIPine 10 MG TAB PO SCH ×2 (00:39→21:30)
[2018-11-24] MEDS: busPIRone HCl 10 MG TAB PO SCH ×3 (00:39→22:08)
[2018-11-24] MEDS: ARIPiprazole 5 MG TAB PO SCH ×2 (00:52→22:45)
[2018-11-24] MEDS: FLUoxetine HCL 10 MG CAP PO SCH ×2 (00:52→22:45)
[2018-11-24] MEDS: LORATADINE 10 MG TAB PO SCH (07:03)
[2018-11-24] MEDS: AZITHROMYCIN 500 MG TAB PO SCH (07:04)
[2018-11-24] MEDS: IPRATROPIUM-ALBUTEROL 3 ML NEB INHALATION SCH ×4 (09:13→19:17)
[2018-11-24] MEDS: MULTIVITAMINS, THERA 1 EACH TAB PO SCH (11:34)
[2018-11-24] MEDS ORDERED: ARTIFICIAL TEARS-HYPROMELLOSE DROPS 15 ML BTL BOTH EYES PRN (17:44)
[2018-11-24] MEDS ORDERED: TEMAZEPAM 15 MG CAP PO PRN (17:45)
--- NOTE | 2018-11-24 20:22 | HP ---
HISTORY AND PHYSICAL DATE OF SERVICE: 11/24/2018 CHIEF COMPLAINTS: Weakness. HISTORY OF PRESENT ILLNESS: This 73-year-old gentleman with a past medical history of multiple medical problems including CHF, COPD, GERD, hypertension, history of adenoidectomy, surgery, anxiety, bipolar depression, being followed by Dr. Alvin Mott in the outpatient setting was complaining of generalized weakness. Patient also had some shortness of breath also. The patient also complaining of some cough and also complaining of some dizziness and the patient came to [facility] and was admitted for further evaluation and treatment. There is no history of fever, rigors or chills. No history of headache, loss of consciousness or seizures. The chest x-ray done on admission showed some pulmonary fibrosis. There is no history of fever or rigors or chills. PAST MEDICAL HISTORY: History of CHF, COPD, GERD, hypertension, anxiety, bipolar depression. HOME MEDICATIONS: The list includes: 1. Albuterol 2.5 t.i.d. 2. Lamictal 100 mg p.o. daily. 3. BuSpar 10 mg b.i.d. 4. Norvasc 10 mg p.o. daily. 5. Multivitamins one p.o. daily. 6. Toprol-XL 50 mg p.o. daily. 7. Imodium 2 mg q.h.s. 8. Xyzal 5 mg. 9. Prozac 30 mg p.o. daily. 10.Artificial tears 1 drop both eyes t.i.d. p.r.n. 11.Abilify 5 mg p.o. b.i.d. ALLERGIES: None. FAMILY HISTORY: History of diabetes in the family. SOCIAL HISTORY: History of smoking ongoing continuing. No history of alcohol intake. REVIEW OF SYSTEMS: ENT: No diminished hearing. No diminished vision. CARDIOVASCULAR: As mentioned earlier. RESPIRATORY: As mentioned earlier. GI no nausea or vomiting. no dysuria. CENTRAL NERVOUS SYSTEM: No numbness or weakness. ALLERGY/IMMUNOLOGY: No asthma or hayfever. MUSCULOSKELETAL: As mentioned earlier. HEMATOLOGY/ONCOLOGY: No history of anemia. ENDOCRINE: No history of diabetes or hypothyroidism. CONSTITUTIONAL: As mentioned earlier. Dermatology: Negative. Rheumatology: Negative. Psychiatry: As mentioned earlier. PHYSICAL EXAMINATION: GENERAL: The patient is alert and oriented times three. VITAL SIGNS: Pulse 75, blood pressure 99/57, respiration 18, temperature 97.9 , pulse ox 93% on 3 L. HEENT: Conjunctivae normal. Oral mucosa moist. NECK: No jugular venous distention. No carotid bruit. No lymph node enlargement. CARDIOVASCULAR: S1, S2 muffled. Respirations: Breath sounds diminished in the bases. A few bilateral scattered rhonchi and crackles. ABDOMEN: Soft, nontender. No mass palpable. LEGS: No edema and no swelling. NERVOUS SYSTEM: Higher functions as mentioned earlier. Moves all 4 limbs. No focal motor or sensory deficits. Lymphatics: No lymph nodes palpable in the neck, axillae or groin. SKIN: No ulcer, no rash. No bleeding. LABS: CBC within normal limits, glucose 111. UA shows RBCs and WBCs. ASSESSMENT: 1. Chronic obstructive pulmonary disease acute exacerbation with acute purulent tracheobronchitis. 2. Urinary tract infection. 3. Continued ongoing nicotine dependence. 4. History of congestive heart failure. 5. Gastroesophageal reflux disease. 6. Hypertension. 7. History of adenoidectomy. 8. History of anxiety/bipolar depression. 9. History of suicide attempt. RECOMMENDATIONS AND DISCUSSION: In this 73-year-old gentleman who presented with multiple complex medical issues , we will monitor the patient closely, continue the current management and symptomatic treatment. Bronchodilators. Otherwise empiric antibiotics. IV steroids. Monitor blood sugars closely. Resume the home medications. Prognosis guarded because of multiple complex medical issues. Further recommendations to follow. MMODL / IJN: [id number] / MTDKaley
[2018-11-24 22:06] LABS: Glucose,Whole Blood 239 mg/dL (75-99)
[2018-11-24] MEDS: LOPERAMIDE 2 MG CAP PO SCH (22:07)
[2018-11-24] MEDS: INSULIN ASPART 100 UNIT/ML 1 ML 10 ML VIAL SQ SCH (22:07)
[2018-11-24] MEDS: HEPARIN SODIUM,PORCINE 5,000 UNIT/ML 1 ML VIAL SQ SCH (22:08)
[2018-11-24] MEDS: METOPROLOL SUCCINATE (ER) 50 MG TAB.ER.24H PO SCH (22:08)
[2018-11-25] MEDS: methylPREDNISolone SOD SUCCI 125 MG/2 ML VIAL IV SCH ×5 (03:19→23:41)
[2018-11-25] MEDS: busPIRone HCl 10 MG TAB PO SCH ×2 (06:55→21:25)
[2018-11-25] MEDS: LORATADINE 10 MG TAB PO SCH (06:56)
[2018-11-25] MEDS: PANTOPRAZOLE 40 MG TABLET PO SCH (06:56)
[2018-11-25] MEDS: AZITHROMYCIN 500 MG TAB PO SCH (06:56)
[2018-11-25 06:57] LABS: Glucose,Whole Blood 151 mg/dL (75-99)
[2018-11-25] MEDS: HEPARIN SODIUM,PORCINE 5,000 UNIT/ML 1 ML VIAL SQ SCH ×2 (06:57→21:26)
[2018-11-25] MEDS: INSULIN ASPART 100 UNIT/ML 1 ML 10 ML VIAL SQ SCH ×4 (06:57→21:39)
[2018-11-25] MEDS: NICOTINE 14MG/24HR PATCH TRANSDERM SCH (06:57)
[2018-11-25] MEDS: IPRATROPIUM-ALBUTEROL 3 ML NEB INHALATION SCH ×4 (08:12→20:39)
[2018-11-25 12:03] LABS: Glucose,Whole Blood 189 mg/dL (75-99)
[2018-11-25] MEDS: MULTIVITAMINS, THERA 1 EACH TAB PO SCH (12:08)
[2018-11-25 17:10] LABS: Glucose,Whole Blood 156 mg/dL (75-99)
[2018-11-25 20:22] LABS: Glucose,Whole Blood 221 mg/dL (75-99)
--- NOTE | 2018-11-25 21:21 | PN ---
PROGRESS NOTE DATE OF SERVICE: 11/25/2018 This 73-year-old gentleman who was admitted with COPD exacerbation as well as acute purulent tracheobronchitis also UTI. The patient continued ongoing nicotine dependence. Patient closely monitored. No chest pain. No palpitations. No fever. EXAM: Alert and oriented. Pulse is 74, blood pressure 137/70, respiration 17, temperature 98.2, pulse ox 98% on 2 L. HEENT: Conjunctivae normal. Oral mucosa moist. NECK: No jugular venous distention. No lymph node enlargement. CARDIOVASCULAR: S1, S2. RESPIRATORY: Diminished breath sounds at the bases. Bilateral scattered rhonchi, no crackles. ABDOMEN: Soft, nontender. LEGS: No swelling. NERVOUS SYSTEM: No focal deficits. LABS: UA possibly UTI. ASSESSMENT: 1. Chronic obstructive pulmonary disease exacerbation with acute purulent tracheobronchitis. 2. Urinary tract infection. 3. Continued ongoing nicotine dependence. 4. History of congestive heart failure. 5. Gastroesophageal reflux disease. 6. Hypertension. 7. History of adenoidectomy. 8. History of anxiety, bipolar depression. 9. History of suicide attempts. RECOMMENDATION AND DISCUSSION: Recommend to continue current management, continue symptomatic treatment. At this time I recommend continue with bronchodilators. Continue with IV steroids and Rocephin. The guarded prognosis because of multiple complex medical issues. Further recommendations to follow. MMODL / IJN: [id number] /
[2018-11-25] MEDS: amLODIPine 10 MG TAB PO SCH (21:25)
[2018-11-25] MEDS: ARIPiprazole 5 MG TAB PO SCH (21:25)
[2018-11-25] MEDS: lamoTRIgine 100 MG TAB PO SCH (21:26)
[2018-11-25] MEDS: FLUoxetine HCL 10 MG CAP PO SCH (21:26)
[2018-11-25] MEDS: METOPROLOL SUCCINATE (ER) 50 MG TAB.ER.24H PO SCH (21:28)
[2018-11-25] MEDS: LOPERAMIDE 2 MG CAP PO SCH (21:33)
[2018-11-26] MEDS: methylPREDNISolone SOD SUCCI 125 MG/2 ML VIAL IV SCH ×2 (05:54→11:59)
[2018-11-26] MEDS: IPRATROPIUM-ALBUTEROL 3 ML NEB INHALATION SCH ×4 (07:25→19:50)
[2018-11-26] MEDS: HEPARIN SODIUM,PORCINE 5,000 UNIT/ML 1 ML VIAL SQ SCH ×2 (08:33→21:50)
[2018-11-26] MEDS: LORATADINE 10 MG TAB PO SCH (08:33)
[2018-11-26] MEDS: busPIRone HCl 10 MG TAB PO SCH ×2 (08:33→21:49)
[2018-11-26] MEDS: AZITHROMYCIN 500 MG TAB PO SCH (08:33)
[2018-11-26] MEDS: INSULIN ASPART 100 UNIT/ML 1 ML 10 ML VIAL SQ SCH ×4 (08:33→21:50)
[2018-11-26 08:34] LABS: Glucose,Whole Blood 223 mg/dL (75-99)
[2018-11-26] MEDS: PANTOPRAZOLE 40 MG TABLET PO SCH (08:35)
[2018-11-26] MEDS: MULTIVITAMINS, THERA 1 EACH TAB PO SCH (08:35)
[2018-11-26] MEDS: NICOTINE 14MG/24HR PATCH TRANSDERM SCH (08:35)
[2018-11-26 12:08] LABS: Glucose,Whole Blood 184 mg/dL (75-99)
[2018-11-26 13:09] LABS: Hemoglobin A1C 6.1 % (4.0-6.0)
[2018-11-26] MEDS: methylPREDNISolone SOD SUCCI 40 MG/ML 1 ML VIAL IV SCH ×2 (16:43→23:46)
[2018-11-26 17:19] LABS: Glucose,Whole Blood 234 mg/dL (75-99)
--- NOTE | 2018-11-26 19:01 | PN ---
PROGRESS NOTE DATE OF SERVICE: 11/26/2018 This 73-year-old gentleman was admitted with COPD acute exacerbation also had UTI. The patient is short of breath but improving significantly. No chest pain. No palpitations. No fever. EXAM: Alert and oriented x3. Pulse is 72, blood pressure 120/70, respiration 16, temperature 98 degrees, pulse ox 94% on room air. HEENT: Conjunctivae normal. Oral mucosa moist. NECK: No jugular venous distention. No lymph node enlargement. CARDIOVASCULAR: S1, S2. RESPIRATORY: Diminished breath sounds at the bases. Scattered rhonchi and crackles. Expiratory wheezing. ABDOMEN: Soft, nontender. LEGS: No swelling. NERVOUS SYSTEM: No focal deficits. LABS: Accu-Cheks noted. Hemoglobin A1c was 6.1 UA noted. ASSESSMENT: 1. Chronic obstructive pulmonary disease acute exacerbation with acute purulent tracheobronchitis. 2. Urinary tract infection. 3. Continued ongoing nicotine dependence. 4. History of congestive heart failure. 5. Gastroesophageal reflux disease.. 6. Hypertension. 7. History of adenoidectomy. 8. History of anxiety, bipolar depression. 9. History of suicide attempts. 10.Obesity with body mass index 37.5. RECOMMENDATIONS: Recommend to continue current management, continue symptomatic treatment, taper the steroids. Continue the rest of the medications. Guarded prognosis because of multiple complex medical issues. Further recommendations to follow. MMODL / IJN: [id number] /
[2018-11-26 20:13] LABS: Glucose,Whole Blood 177 mg/dL (75-99)
[2018-11-26] MEDS: ARIPiprazole 5 MG TAB PO SCH (21:50)
[2018-11-26] MEDS: amLODIPine 10 MG TAB PO SCH (21:50)
[2018-11-26] MEDS: LOPERAMIDE 2 MG CAP PO SCH (21:50)
[2018-11-26] MEDS: lamoTRIgine 100 MG TAB PO SCH (21:50)
[2018-11-26] MEDS: FLUoxetine HCL 10 MG CAP PO SCH (21:50)
[2018-11-26] MEDS: METOPROLOL SUCCINATE (ER) 50 MG TAB.ER.24H PO SCH (21:50)
[2018-11-27] MEDS: IPRATROPIUM-ALBUTEROL 3 ML NEB INHALATION SCH ×4 (07:10→20:55)
[2018-11-27 07:14] LABS: Glucose,Whole Blood 172 mg/dL (75-99)
[2018-11-27 08:12] LABS: Basophils % (A) 0 %; Eosinophils % (A) 0 %; HCT 43.1 % (39.0-53.0); Lymphocytes # (A) 0.8 k/uL (1.0-4.8); Lymphocytes % (A) 7 %; MCH 30.8 pg (25.0-35.0); MCHC 32.4 g/dL (31.0-37.0); MCV 95.2 fL (80.0-100.0); Mean Platelet Volume 7.3; Monocytes # (A) 0.5 k/uL (0-1.0); Monocytes % (A) 5 %; Neutrophils # (A) 9.7 k/uL (1.3-7.7); Neutrophils % (A) 87 %; Platelet Count 180 k/uL (150-450); RBC 4.52 m/uL (4.30-5.90); RDW 13.5 % (11.5-15.5); WBC 11.2 k/uL (3.8-10.6)
[2018-11-27 08:26] LABS: Anion Gap 7 mmol/L; Blood Urea Nitrogen 26 mg/dL (9-20); Calcium 8.6 mg/dL (8.4-10.2); Carbon Dioxide 29 mmol/L (22-30); Chloride 102 mmol/L (98-107); Glucose 161 mg/dL (74-99); Potassium 4.2 mmol/L (3.5-5.1); Sodium 138 mmol/L (137-145)
[2018-11-27] MEDS: AZITHROMYCIN 500 MG TAB PO SCH (08:36)
[2018-11-27] MEDS: HEPARIN SODIUM,PORCINE 5,000 UNIT/ML 1 ML VIAL SQ SCH ×2 (08:36→21:20)
[2018-11-27] MEDS: methylPREDNISolone SOD SUCCI 40 MG/ML 1 ML VIAL IV SCH ×3 (08:36→22:55)
[2018-11-27] MEDS: INSULIN ASPART 100 UNIT/ML 1 ML 10 ML VIAL SQ SCH ×4 (08:36→21:21)
[2018-11-27] MEDS: PANTOPRAZOLE 40 MG TABLET PO SCH (08:36)
[2018-11-27] MEDS: NICOTINE 14MG/24HR PATCH TRANSDERM SCH (08:36)
[2018-11-27] MEDS: busPIRone HCl 10 MG TAB PO SCH ×2 (08:37→21:20)
[2018-11-27] MEDS: MULTIVITAMINS, THERA 1 EACH TAB PO SCH (08:37)
[2018-11-27] MEDS: LORATADINE 10 MG TAB PO SCH (08:37)
[2018-11-27 12:06] LABS: Glucose,Whole Blood 148 mg/dL (75-99)
[2018-11-27 17:26] LABS: Glucose,Whole Blood 176 mg/dL (75-99)
[2018-11-27 20:03] LABS: Glucose,Whole Blood 182 mg/dL (75-99)
[2018-11-27] MEDS: ARIPiprazole 5 MG TAB PO SCH (21:20)
[2018-11-27] MEDS: FLUoxetine HCL 10 MG CAP PO SCH (21:20)
[2018-11-27] MEDS: amLODIPine 10 MG TAB PO SCH (21:20)
[2018-11-27] MEDS: LOPERAMIDE 2 MG CAP PO SCH (21:21)
[2018-11-27] MEDS: METOPROLOL SUCCINATE (ER) 50 MG TAB.ER.24H PO SCH (21:21)
[2018-11-27] MEDS: lamoTRIgine 100 MG TAB PO SCH (21:21)
[2018-11-28 06:50] LABS: Glucose,Whole Blood 192 mg/dL (75-99)
--- NOTE | 2018-11-28 07:36 | PN ---
PROGRESS NOTE DATE OF SERVICE: 11/27/2018 This 72-year-old gentleman was admitted COPD acute exacerbation also complaining of generalized tiredness weakness. No chest pain. No palpitations. No fever. The possibility of possible rehab is also considered. EXAM: Alert, oriented x2. Pulse 79, blood pressure 140/62, respirations 16, temperature 98.2, pulse ox 98% on 3 L. HEENT is conjunctivae normal. NECK is no jugular venous distention. CARDIOVASCULAR: S1, S2 muffled. RESPIRATION: Breath sounds diminished in the bases. A few scattered rhonchi and crackles. ABDOMEN is soft, nontender. LEGS are no edema. No swelling. CENTRAL NERVOUS SYSTEM: No focal deficits. LABS: WBC 11.8, hemoglobin is 14, Accu-Cheks noted. ASSESSMENT: 1. Chronic obstructive pulmonary disease exacerbation with acute purulent tracheobronchitis. 2. Urinary tract infection. 3. Generalized gait dysfunction. 4. Continued ongoing nicotine dependence. 5. History of congestive heart failure. 6. Gastroesophageal reflux disease. 7. Hypertension. 8. History of adenoidectomy. 9. History of anxiety, bipolar depression. 10.History of suicidal attempts. 11.Obesity with body mass index of 37.5. 12.NO CODE, NO CPR, NO VENT. RECOMMENDATIONS AND DISCUSSION: I recommend to continue current medications, symptomatic treatment. Taper the steroids. Bronchodilators. Otherwise PT/OT evaluation, possible ECF rehab. Guarded prognosis. Further recommendations to follow. MMODL / IJN: [id number] /
[2018-11-28] MEDS: IPRATROPIUM-ALBUTEROL 3 ML NEB INHALATION SCH ×3 (08:13→15:54)
[2018-11-28 08:34] LABS: Anion Gap 8 mmol/L; Blood Urea Nitrogen 25 mg/dL (9-20); Calcium 8.9 mg/dL (8.4-10.2); Carbon Dioxide 30 mmol/L (22-30); Chloride 101 mmol/L (98-107); Glucose 174 mg/dL (74-99); Potassium 4.4 mmol/L (3.5-5.1); Sodium 139 mmol/L (137-145)
[2018-11-28 08:40] LABS: Basophils % (A) 0 %; Eosinophils # (A) 0.1 k/uL (0-0.7); Eosinophils % (A) 1 %; HCT 48.3 % (39.0-53.0); HGB 15.5 gm/dL (13.0-17.5); Lymphocytes # (A) 0.8 k/uL (1.0-4.8); Lymphocytes % (A) 6 %; MCH 30.7 pg (25.0-35.0); MCHC 32.2 g/dL (31.0-37.0); MCV 95.4 fL (80.0-100.0); Monocytes # (A) 0.6 k/uL (0-1.0); Monocytes % (A) 5 %; Neutrophils # (A) 10.8 k/uL (1.3-7.7); Neutrophils % (A) 88 %; Platelet Count 219 k/uL (150-450); RBC 5.06 m/uL (4.30-5.90); RDW 13.7 % (11.5-15.5); WBC 12.4 k/uL (3.8-10.6)
[2018-11-28] MEDS: methylPREDNISolone SOD SUCCI 40 MG/ML 1 ML VIAL IV SCH ×2 (08:54→17:16)
[2018-11-28] MEDS: HEPARIN SODIUM,PORCINE 5,000 UNIT/ML 1 ML VIAL SQ SCH (08:54)
[2018-11-28] MEDS: busPIRone HCl 10 MG TAB PO SCH (08:55)
[2018-11-28] MEDS: LORATADINE 10 MG TAB PO SCH (08:55)
[2018-11-28] MEDS: PANTOPRAZOLE 40 MG TABLET PO SCH (08:55)
[2018-11-28] MEDS: MULTIVITAMINS, THERA 1 EACH TAB PO SCH (08:55)
[2018-11-28] MEDS: INSULIN ASPART 100 UNIT/ML 1 ML 10 ML VIAL SQ SCH ×2 (08:56→13:05)
[2018-11-28] MEDS: NICOTINE 14MG/24HR PATCH TRANSDERM SCH (08:56)
[2018-11-28] MEDS: AZITHROMYCIN 500 MG TAB PO SCH (08:56)
--- NOTE | 2018-11-28 10:31 | CDI ---
Documentation Clarification Form Date: 11/28/2018 10:19:16 AM From: Audrey CORREA,RN,CCDS Email: [email or web address] Admit Date: 11/23/2018 9:00:00 PM Patient Name: Mihir Gottlieb Visit Number: [id number] Discharge Date: ATTENTION: The Clinical Documentation Specialists (CDI) and [facility] Coding Staff appreciate your assistance in clarifying documentation. Please respond to the clarification below the line at the bottom and electronically sign. The CDI & [facility] Coding staff will review the response and follow-up if needed. Please note: Queries are made part of the Legal Health Record. If you have any questions, please contact the author of this message via ITS. Dr. Vanessa Moore HX of CHF is documented in HP and multiple progress notes, in pt admitted with dyspnea 2nd to acute CODP exacerbation History/Risk Factors: obesity with BMI 37.5, HTN, anxiety depression bipolar, GERD , current nicotine dependence COPD , hx of CHF Clinical Indicators: no JVD, no noted edema BNP:none noted Contained within EMR shows echo of 02/21/2017 with EF 65-70 Chest X Ray: : Mild pulmonary fibrosis.No active cardiopulmonary disease. Treatment: home meds include norvasc and Toprol XL In your professional opinion, can you please clarify the type of CHF if known? Hx of CHF ruled out Systolic Heart Failure: Chronic Diastolic Heart Failure: Chronic Systolic & Diastolic Heart Failure: Chronic Unable to Determine Other, please specify (Last Revision: February 2018 Diastolic Heart Failure: Chronic MTDD
[2018-11-28 11:44] LABS: Glucose,Whole Blood 207 mg/dL (75-99)
[2018-11-28 15:42] VITALS: BP 146/80; TEMP 97.9
[2018-11-28 15:56] VITALS: RESP 18
[2018-11-28 16:04] VITALS: PULSE 72
[2018-11-28 17:18] LABS: Glucose,Whole Blood 147 mg/dL (75-99)
--- NOTE | 2018-11-28 21:18 | DS ---
DISCHARGE SUMMARY DATE OF SERVICE: 11/28/2018. FINAL DIAGNOSES: 1. Chronic obstructive pulmonary disease acute exacerbation with acute purulent tracheobronchitis. 2. Urinary tract infection. 3. Generalized gait dysfunction. 4. Continued ongoing nicotine dependence. 5. History of congestive heart failure. 6. Gastroesophageal reflux disease. 7. Hypertension. 8. History of adenoidectomy. 9. History of anxiety/bipolar depression. 10.History of suicidal attempts. 11.Obesity with body mass index of 37.5. 12.NO CODE, NO CPR, NO VENT. DISCHARGE DISPOSITION: Patient is being discharged in stable condition with guarded prognosis. HISTORY OF PRESENT ILLNESS: This 73-year-old gentleman with past medical history of multiple medical problems, was admitted with COPD acute exacerbation. Patient treated with bronchodilators, steroids, antibiotics. Patient improved significantly. The patient was evaluated for subacute rehab for which the patient does not qualify at this time. The patient improved significantly. On exam, vital signs stable. CARDIOVASCULAR: S1, S2 muffled. Respiration: A few scattered rhonchi and crackles. Abdomen is soft. Central nervous system: No focal deficits. DISCHARGE INSTRUCTIONS: 1. Diet is cardiac. 2. Activity limited until followup. 3. Follow up with Dr. Alvin Mott in 2-3 days. 4. Follow up with as advised. MEDICATIONS: 1. Abilify 5 mg p.o. daily. 2. Artificial Tears 1 drop t.i.d. p.r.n. 3. BuSpar 10 mg p.o. b.i.d. 4. Prozac 30 mg p.o. daily. 5. Xyzal 5 mg p.o. daily. 6. Imodium AD 2 mg q.h.s. 7. Toprol-XL 50 mg p.o. daily. 8. Multivitamins one p.o. daily. 9. Ventolin 2.5 q.i.d. 10.Norvasc 10 mg p.o. daily. 11.Zithromax 500 mg daily for 5 days. 12.Ceftin 500 mg p.o. b.i.d. for 10 days. 13.Lamictal 100 mg p.o. daily. 14.Habitrol 14 daily. 15.Protonix 40 mg with breakfast. 16.Prednisone taper 40 mg daily for 3 days, 30 for 3 days, 20 is 3 days, 10 for three days. Once again, the patient is being discharged in stable condition with guarded prognosis. MMODL / IJN: [id number] / MTDD
--- NOTE | 2018-11-29 09:33 | P.PN ---
Progress Note - Text Progress Note Date: 11/28/18 Addendum to discharge summary: Hospital bed for head of bed elevation for sleeping secondary to COPD and patient will be discharged on home oxygen. The impression and plan of care has been dictated as directed. : I performed a history and examination of this patient, discussed the same with the dictator. I agree with the dictator's note ,documented as a scribe. Any additional findings or plans will be noted.
== END 2018-11-28 18:33 | disposition home health service (06) | DRG 191 ==
LOC: EC 16:53 → 4SSUR 21:00
PROVIDERS: ADMIT Family Medicine; ATTEND Family Medicine
DX: J44.1 Chronic obstructive pulmonary disease with (acute) exacerbation (principal); N39.0 Urinary tract infection, site not specified; E86.0 Dehydration; I11.0 Hypertensive heart disease with heart failure; I50.9 Heart failure, unspecified; J84.10 Pulmonary fibrosis, unspecified; J20.9 Acute bronchitis, unspecified; E66.9 Obesity, unspecified; F17.200 Nicotine dependence, unspecified, uncomplicated; K21.9 Gastro-esophageal reflux disease without esophagitis; F32.9 Major depressive disorder, single episode, unspecified; F41.9 Anxiety disorder, unspecified; R26.9 Unspecified abnormalities of gait and mobility; Z68.37 Body mass index [BMI] 37.0-37.9, adult; Z79.899 Other long term (current) drug therapy; Z91.5 Personal history of self-harm; Z66 Do not resuscitate; Z83.3 Family history of diabetes mellitus; Z80.9 Family history of malignant neoplasm, unspecified
CPT/HCPCS: 36415; 71046; 80048; 80053; 81001; 82550; 82553; 83036; 83735; 84484; 85025; 85610; 85730; 87040; 87077; 87086; 87186; 87502; 93005; 94640; 94760; 96365; 96375; 99285

== ENCOUNTER 2019-05-21 22:37 | Observation (INO) | payer MEDICARE ==
[2019-05-22] MEDS ORDERED: SODIUM CHLORIDE 0.9% 1,000 ML BAG ONE (00:03)
[2019-05-22] MEDS ORDERED: cefTRIAXone IN SWFI 1,000 MG/10 ML SYRINGE IVP ONE (00:03)
[2019-05-22] MEDS ORDERED: ACETAMINOPHEN TAB 325 MG TAB ONE (00:03)
[2019-05-22 06:07] LABS: Partial Thromboplastin Time 26.3 sec (22.0-30.0); Prothrombin Time 10.8 sec (9.0-12.0)
[2019-05-22 06:12] LABS: Basophils % (A) 0 %; Eosinophils % (A) 1 %; HGB 14.5 gm/dL (13.0-17.5); Lymphocytes # (A) 0.6 k/uL (1.0-4.8); Lymphocytes % (A) 11 %; MCH 30.4 pg (25.0-35.0); MCHC 32.8 g/dL (31.0-37.0); MCV 92.5 fL (80.0-100.0); Mean Platelet Volume 7.1; Monocytes # (A) 0.4 k/uL (0-1.0); Monocytes % (A) 7 %; Neutrophils % (A) 78 %; Platelet Count 155 k/uL (150-450); RBC 4.76 m/uL (4.30-5.90); RDW 13.7 % (11.5-15.5); WBC 5.2 k/uL (3.8-10.6)
[2019-05-22 06:21] LABS: Appearance,Urine Cloudy (Clear); Bilirubin,Urine Negative (Negative); Blood,Urine Moderate (Negative); Color,Urine Yellow; Glucose,Urine (UA) Negative (Negative); Ketones,Urine Negative (Negative); Leukocyte Esterase,Urine Moderate (Negative); Mucus,Urine Occasional /hpf; Nitrite,Urine Negative (Negative); PH, Urine 5.5 (5.0-8.0); Protein,Urine 1+ (Negative); RBC,Urine >182 /hpf (0-5); Specific Gravity,Urine 1.025 (1.001-1.035); WBC,Urine 34 /hpf (0-5)
[2019-05-22 06:37] LABS: ALT 16 U/L (21-72); AST 17 U/L (17-59); African American GFR (CKD) >90 (>60 ml/min/1.73 sqM); Albumin 3.2 g/dL (3.5-5.0); Alkaline Phosphatase 65 U/L (38-126); Anion Gap 5 mmol/L; Blood Urea Nitrogen 17 mg/dL (9-20); Calcium 8.3 mg/dL (8.4-10.2); Carbon Dioxide 29 mmol/L (22-30); Chloride 104 mmol/L (98-107); Glucose 142 mg/dL (74-99); Magnesium 2.1 mg/dL (1.6-2.3); Sodium 138 mmol/L (137-145); Total Bilirubin 0.4 mg/dL (0.2-1.3); Total Protein 5.7 g/dL (6.3-8.2)
[2019-05-22] MEDS ORDERED: ACETAMINOPHEN TAB 325 MG TAB PO PRN (10:04)
[2019-05-22] MEDS ORDERED: IBUPROFEN 400 MG TAB PO PRN (10:04)
[2019-05-22] MEDS ORDERED: NALOXONE 0.4 MG/ML 1 ML VIAL IV PRN (10:05)
[2019-05-22] MEDS ORDERED: ARTIFICIAL TEARS-HYPROMELLOSE DROPS 15 ML BTL BOTH EYES PRN (11:49)
[2019-05-22] MEDS ORDERED: IPRATROPIUM-ALBUTEROL 3 ML NEB INHALATION PRN (11:50)
[2019-05-22 12:27] VITALS: BMI 78.1
[2019-05-22] MEDS: SODIUM CHLORIDE 0.9% 1,000 ML IV SCH ×2 (12:58→21:35)
[2019-05-22] MEDS: PANTOPRAZOLE 40 MG TABLET PO SCH (12:58)
[2019-05-22] MEDS: MULTIVITAMINS, THERA 1 EACH TAB PO SCH (12:58)
--- NOTE | 2019-05-22 16:01 | P.HPIM ---
History of Present Illness H&P Date: 05/22/19 Chief Complaint: Generalized weakness and lethargic Patient is 73-year-old male with a known history of hypertension, COPD, obstructive sleep apnea and recurrent urinary tract infections was brought to the hospital due to generalized weakness and lethargic and altered mental status. Patient has been feeling very weak and unable to get up for the past 1- 2 days. Gradually worsening. Patient had cystoscopy recently due to hematuria. Patient is also having blood in the urine. No fever no chills. Denied any nausea or vomiting. No commerce of chest pain or shortness of breath. No headache or dizziness or lightheadedness. Urinalysis showed greater than 182 RBCs, WBCs 34 and cloudy. Hemoglobin 14.5 Review of Systems Constitutional: Patient denies any fever or chills . Lethargic and generalized weakness.. Abdomen: Patient denied nausea vomiting and diarrhea and abdominal pain. Cardiovascular: Patient denies any chest pain or short of breath no palpitations. Respiratory: patient denied any cough is from production. No shortness of breath Neurologic: Patient denied any numbness or tingling headache. Complete review of systems could not be obtained from the patient. Past Medical History Past Medical History: Heart Failure, COPD, GERD/Reflux, Hypertension History of Any Multi-Drug Resistant Organisms: None Reported Past Surgical History: Adenoidectomy Additional Past Surgical History / Comment(s): left wrist surgery 12 years ago, (Pt has AMS, denies adenoidectomy) Past Anesthesia/Blood Transfusion Reactions: No Reported Reaction Past Psychological History: Anxiety, Bipolar, Depression Additional Psychological History / Comment(s): Patient caregiver states that symptoms have been worse since incarceration in June, previous suicide attempt by cutting left wrist "years ago", per patient. Smoking Status: Current every day smoker Past Alcohol Use History: Occasional Additional Past Alcohol Use History / Comment(s): pt states he used to drink daily but quit 6 months ago Past Drug Use History: None Reported - Past Family History Mother Family Medical History: Cancer Father Family Medical History: Diabetes Mellitus Medications and Allergies Home Medications Medication Instructions Recorded Confirmed Type amLODIPine [Norvasc] 10 mg PO DAILY #14 tab 09/07/15 05/22/19 Rx Artificial Tears-Hypromellose 1 drops BOTH EYES TID PRN 09/05/16 05/22/19 History [Artificial Tear Drops] Metoprolol Succinate [Toprol XL] 50 mg PO DAILY 09/05/16 05/22/19 History lamoTRIgine [LaMICtal] 100 mg PO DAILY #30 tab 09/20/16 05/22/19 Rx FLUoxetine HCL [PROzac] 30 mg PO DAILY 02/20/17 05/22/19 History Multivitamins, Thera [Multivitamin 1 tab PO DAILY 03/06/18 05/22/19 History (formulary)] busPIRone HCl [Buspar] 10 mg PO BID 03/06/18 05/22/19 History Levocetirizine Dihydrochloride 5 mg PO DAILY 11/23/18 05/22/19 History [Xyzal] Pantoprazole [Protonix] 40 mg PO -KEI #14 tablet. 11/28/18 05/22/19 Rx Albuterol Nebulized [Ventolin 2.5 mg INHALATION RT-QID 05/22/19 05/22/19 History Nebulized] Fluticasone Nasal [place] [Flonase 1 spr EA NOSTRIL DAILY 05/22/19 05/22/19 History Nasal [place]] Tiotropium 18 Mcg/Puff [Spiriva] 1 puff INHALATION RT-DAILY 05/22/19 05/22/19 History Allergies Allergy/AdvReac Type Severity Reaction Status Date / Time No Known Allergies Allergy Verified 05/22/19 08:37 Physical Exam Vitals: Vital Signs Temp Pulse Pulse Resp BP BP Pulse Ox 05/22/19 09:30 98.1 F 76 18 136/85 98 05/22/19 08:21 98 F 69 18 107/64 100 PHYSICAL EXAMINATION: Patient is lying in the bed comfortably, no acute distress, awake alert and oriented. Generally weak. HEENT: Normocephalic. Neck is supple. Pupils reactive. Nostrils clear. Oral cavity is moist. Ears reveal no drainage. Neck reveals no JVD, carotid bruits, or thyromegaly. CHEST EXAMINATION: Trachea is central. Symmetrical expansion. Bibasilar diminished air entry. Lung cevallos clear to auscultation and percussion. CARDIAC: Normal S1, S2 with no gallops. No murmurs ABDOMEN: Soft. Bowel sounds normal. No organomegaly. No abdominal bruits. Extremities: reveal no edema. No clubbing or cyanosis Neurologically awake, alert, oriented x3 with well-coordinated movements. No focal deficits noted Skin: No rash or skin lesions. Psychiatric: Coperative. Could not be assessed completely Musculoskeletal: No joint swelling or deformity. Normal range of motion. Results CBC & Chem 7: 05/22/19 00:02 05/22/19 02:14 Labs: Abnormal Lab Results - Last 24 Hours (Table) 05/22/19 05/22/19 05/22/19 Range/Units 00:02 02:14 03:57 Lymphocytes # 0.6 L (1.0-4.8) k/uL Glucose 142 H (74-99) mg/dL Calcium 8.3 L (8.4-10.2) mg/dL ALT 16 L (21-72) U/L Total Protein 5.7 L (6.3-8.2) g/dL Albumin 3.2 L (3.5-5.0) g/dL Urine Protein 1+ H (Negative) Urine Blood Moderate H (Negative) Ur Leukocyte Esterase Moderate H (Negative) Urine RBC >182 H (0-5) /hpf Urine WBC 34 H (0-5) /hpf Urine Mucus Occasional H (None) /hpf Microbiology - Last 24 Hours (Table) 05/22/19 03:57 Urine Culture - Preliminary Urine,Voided Thrombosis Risk Factor Assmnt - DVT/VTE Prophylaxis DVT/VTE Prophylaxis: Pharmacologic Prophylaxis ordered Assessment and Plan Assessment: Acute urinary tract infection Possible metabolic encephalopathy secondary infection Hematuria. Status post recent cystoscopy. Findings unknown at this time. COPD Obstructive sleep apnea Hypertension Anxiety, depression, bipolar disorder Ongoing nicotine addiction Recurrent urinary tract infection Obesity BMI 78.1 CODE STATUS is DO NOT RESUSCITATE/DO NOT INTUBATE DVT prophylaxis with heparin subcu Plan: Patient will be continued on IV hydration with normal saline. Monitor H&H. Hematuria is clearing up at this time. Continue with IV antibiotics in the form of ceftriaxone. Follow-up urine culture reports. Next and continue with breathing treatments and his psychiatric medications. Follow up closely and further recommendations based on the clinical course. Discussed with his at bedside in detail and all questions were answered. PTOT consult. Smoking cessation has been counseled. Prognosis is guarded with multiple medical problems and comorbid conditions. Time with Patient: Greater than 30
[2019-05-22] MEDS: HEPARIN SODIUM,PORCINE 5,000 UNIT/ML 1 ML VIAL SQ SCH (16:51)
[2019-05-22] MEDS: busPIRone HCl 10 MG TAB PO SCH (21:34)
[2019-05-23] MEDS: HEPARIN SODIUM,PORCINE 5,000 UNIT/ML 1 ML VIAL SQ SCH ×4 (00:12→23:18)
[2019-05-23] MEDS: SODIUM CHLORIDE 0.9% 1,000 ML IV SCH ×3 (04:12→15:33)
[2019-05-23 08:50] LABS: Basophils % (A) 0 %; Eosinophils # (A) 0.1 k/uL (0-0.7); Eosinophils % (A) 2 %; HCT 46.6 % (39.0-53.0); Lymphocytes % (A) 16 %; MCH 30.7 pg (25.0-35.0); MCHC 32.1 g/dL (31.0-37.0); MCV 95.6 fL (80.0-100.0); Mean Platelet Volume 7.1; Monocytes # (A) 0.4 k/uL (0-1.0); Monocytes % (A) 6 %; Neutrophils # (A) 4.5 k/uL (1.3-7.7); Neutrophils % (A) 73 %; Platelet Count 137 k/uL (150-450); RBC 4.88 m/uL (4.30-5.90); RDW 13.9 % (11.5-15.5); WBC 6.1 k/uL (3.8-10.6)
[2019-05-23 08:59] LABS: African American GFR (CKD) >90 (>60 ml/min/1.73 sqM); Anion Gap 5 mmol/L; Blood Urea Nitrogen 8 mg/dL (9-20); Calcium 8.5 mg/dL (8.4-10.2); Carbon Dioxide 31 mmol/L (22-30); Chloride 103 mmol/L (98-107); Glucose 106 mg/dL (74-99); Potassium 3.8 mmol/L (3.5-5.1); Sodium 139 mmol/L (137-145)
[2019-05-23] MEDS: amLODIPine 10 MG TAB PO SCH (09:14)
[2019-05-23] MEDS: PANTOPRAZOLE 40 MG TABLET PO SCH (09:14)
[2019-05-23] MEDS: FLUTICASONE 50MCG/SPRAY NASAL 16GM EA NOSTRIL SCH (09:14)
[2019-05-23] MEDS: LORATADINE 10 MG TAB PO SCH (09:14)
[2019-05-23] MEDS: FLUoxetine HCL 10 MG CAP PO SCH (09:14)
[2019-05-23] MEDS: busPIRone HCl 10 MG TAB PO SCH ×2 (09:14→20:16)
[2019-05-23] MEDS: lamoTRIgine 100 MG TAB PO SCH (09:14)
[2019-05-23] MEDS: MULTIVITAMINS, THERA 1 EACH TAB PO SCH (09:15)
--- NOTE | 2019-05-24 01:52 | P.PN ---
Subjective Progress Note Date: 05/23/19 Principal diagnosis: Acute urinary tract infection Patient is 73-year-old male with a known history of hypertension, COPD, obstructive sleep apnea and recurrent urinary tract infections was brought to the hospital due to generalized weakness and lethargic and altered mental stat us. Patient has been feeling very weak and unable to get up for the past 1-2 days. Gradually worsening. Patient had cystoscopy recently due to hematuria. Patient is also having blood in the urine. No fever no chills. Denied any nausea or vomiting. No commerce of chest pain or shortness of breath. No headache or dizziness or lightheadedness. Urinalysis showed greater than 182 RBCs, WBCs 34 and cloudy. Hemoglobin 14.5 05/23/2019 Patient is more awake and oriented today. Denied any complains of chest pain or shortness of breath. Hematuria has resolved. No headache or dizziness or ligh theadedness. No abdominal pain. PTOT will be consulted and encourage ambulation. Urine culture showed no growth. No fever no chills. No other acute overnight issues. And spit discharge in next 24 hours with more clinical improvement. Current medications reviewed. Objective - Vital Signs Vital signs: Vital Signs Temp 97.7 F 05/23/19 12:10 Pulse 93 05/23/19 12:10 Resp 18 05/23/19 12:10 BP 121/77 05/23/19 12:10 Pulse Ox 94 L 05/23/19 12:10 Intake & Output 05/22/19 05/23/19 05/23/19 18:59 06:59 18:59 Weight 276 kg 127.459 kg Other: Voiding Method Bedside Commode Urinal # Voids 2 2 5 - Exam PHYSICAL EXAMINATION: Patient is lying in the bed comfortably, no acute distress, awake alert and oriented.. HEENT: Normocephalic. Neck is supple. Pupils reactive. Nostrils clear. Oral cavity is moist. Ears reveal no drainage. Neck reveals no JVD, carotid bruits, or thyromegaly. CHEST EXAMINATION: Trachea is central. Symmetrical expansion. Lung cevallos clear to auscultation and percussion. CARDIAC: Normal S1, S2 with no gallops. No murmurs ABDOMEN: Soft. Bowel sounds normal. No organomegaly. No abdominal bruits. Extremities: reveal no edema. No clubbing or cyanosis Neurologically awake, alert, oriented x3 with well-coordinated movements. No focal deficits noted Skin: No rash or skin lesions. Psychiatric: Coperative. Nonsuicidal Musculoskeletal: No joint swelling or deformity. Normal range of motion. - Labs CBC & Chem 7: 05/23/19 08:01 05/23/19 08:01 Labs: Abnormal Lab Results - Last 24 Hours (Table) 05/23/19 05/23/19 Range/Units 08:01 08:01 Plt Count 137 L (150-450) k/uL Carbon Dioxide 31 H (22-30) mmol/L BUN 8 L (9-20) mg/dL Glucose 106 H (74-99) mg/dL Microbiology - Last 24 Hours (Table) 05/22/19 03:57 Urine Culture - Final Urine,Voided 05/22/19 00:02 Blood Culture - Preliminary Blood No Growth after 24 hours Assessment and Plan Assessment: Acute urinary tract infection. Urine culture showed no growth. metabolic encephalopathy secondary infection. Improved now Hematuria. Status post recent cystoscopy. Findings unknown at this time. Hematuria resolved now. COPD Obstructive sleep apnea Hypertension Anxiety, depression, bipolar disorder Ongoing nicotine addiction Recurrent urinary tract infection Obesity BMI 78.1 CODE STATUS is DO NOT RESUSCITATE/DO NOT INTUBATE DVT prophylaxis with heparin subcu Plan: Patient will be continued on IV hydration with normal saline. Monitor H&H. Hematuria is clearing up at this time. Continue with IV antibiotics in the form of ceftriaxone. Urine culture showed no growth.. Next and continue with breathing treatments and his psychiatric medications. Follow up closely and further recommendations based on the clinical course. Discussed with his at bedside in detail and all questions were answered. PTOT consult. Smoking cessation has been counseled. Prognosis is guarded with multiple medical problems and comorbid conditions. Time with Patient: Greater than 30
[2019-05-24] MEDS: MULTIVITAMINS, THERA 1 EACH TAB PO SCH (09:05)
[2019-05-24] MEDS: HEPARIN SODIUM,PORCINE 5,000 UNIT/ML 1 ML VIAL SQ SCH ×2 (09:05→18:49)
[2019-05-24] MEDS: PANTOPRAZOLE 40 MG TABLET PO SCH (09:05)
[2019-05-24] MEDS: amLODIPine 10 MG TAB PO SCH (09:05)
[2019-05-24] MEDS: LORATADINE 10 MG TAB PO SCH (09:05)
[2019-05-24] MEDS: FLUTICASONE 50MCG/SPRAY NASAL 16GM EA NOSTRIL SCH (09:05)
[2019-05-24] MEDS: lamoTRIgine 100 MG TAB PO SCH (09:07)
[2019-05-24] MEDS: busPIRone HCl 10 MG TAB PO SCH (09:07)
[2019-05-24] MEDS: FLUoxetine HCL 10 MG CAP PO SCH (09:07)
[2019-05-24 11:28] VITALS: BP 128/73; PULSE 75; RESP 18; TEMP 98.5
[2019-05-24] MEDS ORDERED: predniSONE 20 MG TAB PO SCH (14:30)
--- NOTE | 2019-06-03 23:06 | P.DS ---
Providers Date of admission: 05/22/19 05:00 Expected date of discharge: 05/24/19 Attending physician: Vanessa Moore Primary care physician: Alvin Mott Hospital Course: Discharge diagnosis Acute COPD exacerbation Acute urinary tract infection. Urine culture showed no growth. metabolic encephalopathy secondary infection. Improved now Hematuria. Status post recent cystoscopy. Findings unknown at this time. Hematuria resolved now. COPD Obstructive sleep apnea Hypertension Anxiety, depression, bipolar disorder Ongoing nicotine addiction Recurrent urinary tract infection Obesity BMI 78.1 CODE STATUS is DO NOT RESUSCITATE/DO NOT INTUBATE DVT prophylaxis with heparin subcu Hospital course Patient is 73-year-old male with a known history of hypertension, COPD, obstructive sleep apnea and recurrent urinary tract infections was brought to the hospital due to generalized weakness and lethargic and altered mental status. Patient has been feeling very weak and unable to get up for the past 1- 2 days. Gradually worsening. Patient had cystoscopy recently due to hematuria. Patient is also having blood in the urine. No fever no chills. Denied any nausea or vomiting. No commerce of chest pain or shortness of breath. No head ache or dizziness or lightheadedness. Urinalysis showed greater than 182 RBCs, WBCs 34 and cloudy. Hemoglobin 14.5 05/23/2019 Patient is more awake and oriented today. Denied any complains of chest pain or shortness of breath. Hematuria has resolved. No headache or dizziness or lightheadedness. No abdominal pain. PTOT will be consulted and encourage ambulation. Urine culture showed no growth. No fever no chills. No other acute overnight issues. And spit discharge in next 24 hours with more clinical improvement. 05/24/2019 Patient denied any complaints of chest pain or shortness of breath today. No complaints of abdominal pain. No dysuria or hematuria. Clinically much improved. Stable to be discharged home. Patient was continued on IV hydration with normal saline. Monitor H&H. Hematuria is resolved at this time. Continued with IV antibiotics in the form of ceftriaxone. Patient was started on steroids and breathing treatments. Continue with home medications. Improving clinically.. PHYSICAL EXAMINATION: Patient is lying in the bed comfortably, no acute distress, awake alert and oriented.. HEENT: Normocephalic. Neck is supple. Pupils reactive. Nostrils clear. Oral cavity is moist. Ears reveal no drainage. Neck reveals no JVD, carotid bruits, or thyromegaly. CHEST EXAMINATION: Trachea is central. Symmetrical expansion. Lung cevallos clear to auscultation and percussion. CARDIAC: Normal S1, S2 with no gallops. No murmurs ABDOMEN: Soft. Bowel sounds normal. No organomegaly. No abdominal bruits. Extremities: reveal no edema. No clubbing or cyanosis Neurologically awake, alert, oriented x3 with well-coordinated movements. No focal deficits noted Skin: No rash or skin lesions. Psychiatric: Coperative. Nonsuicidal Musculoskeletal: No joint swelling or deformity. Normal range of motion. Discharge vitals reviewed. Total time taken greater than 35 minutes including 18 minutes for counseling and coordination of care. Patient Condition at Discharge: Good Plan - Discharge Summary New Discharge Prescriptions: New predniSONE 40 mg PO DAILY 4 Days tab Continue amLODIPine [Norvasc] 10 mg PO DAILY #14 tab Metoprolol Succinate [Toprol XL] 50 mg PO DAILY Artificial Tears-Hypromellose [Artificial Tear Drops] 1 drops BOTH EYES TID PRN PRN Reason: Dry Eye(S) lamoTRIgine [LaMICtal] 100 mg PO DAILY #30 tab FLUoxetine HCL [PROzac] 30 mg PO DAILY busPIRone HCl [Buspar] 10 mg PO BID Multivitamins, Thera [Multivitamin (formulary)] 1 tab PO DAILY Levocetirizine Dihydrochloride [Xyzal] 5 mg PO DAILY Pantoprazole [Protonix] 40 mg PO [facility] #14 tablet. Albuterol Nebulized [Ventolin Nebulized] 2.5 mg INHALATION RT-QID Fluticasone Nasal [place] [Flonase Nasal [place]] 1 spr EA NOSTRIL DAILY Tiotropium 18 Mcg/Puff [Spiriva] 1 puff INHALATION RT-DAILY Discharge Medication List amLODIPine [Norvasc] 10 mg PO DAILY #14 tab 09/07/15 [Rx] Artificial Tears-Hypromellose [Artificial Tear Drops] 1 drops BOTH EYES TID PRN 09/05/16 [History] Metoprolol Succinate [Toprol XL] 50 mg PO DAILY 09/05/16 [History] lamoTRIgine [LaMICtal] 100 mg PO DAILY #30 tab 09/20/16 [Rx] FLUoxetine HCL [PROzac] 30 mg PO DAILY 02/20/17 [History] Multivitamins, Thera [Multivitamin (formulary)] 1 tab PO DAILY 03/06/18 [History] busPIRone HCl [Buspar] 10 mg PO BID 03/06/18 [History] Levocetirizine Dihydrochloride [Xyzal] 5 mg PO DAILY 11/23/18 [History] Pantoprazole [Protonix] 40 mg PO [facility] #14 tablet. 11/28/18 [Rx] Albuterol Nebulized [Ventolin Nebulized] 2.5 mg INHALATION RT-QID 05/22/19 [History] Fluticasone Nasal [place] [Flonase Nasal [place]] 1 spr EA NOSTRIL DAILY 05/22/19 [History] Tiotropium 18 Mcg/Puff [Spiriva] 1 puff INHALATION RT-DAILY 05/22/19 [History] predniSONE 40 mg PO DAILY 4 Days tab 05/24/19 [Rx] Follow up Appointment(s)/Referral(s): Alvin Mott MD [Primary Care Provider] - 05/29/19 2:00 pm [facility], [NON-STAFF] - As Needed Patient Instructions/Handouts: Prednisone (By mouth), Urinary Tract Infection in Men (DC), Altered Mental Status (GEN) Discharge Disposition: HOME WITH HOME HEALTH SERVICES
== END 2019-05-24 19:28 | disposition home health service (06) ==
LOC: EC 22:37 → UNDOADMIN 05-22 05:00 → 4SSUR 05-22 05:00 → 3NMEDONC 05-22 05:00 → INTOOBSV 05-22 05:00 → 3NMEDONC 05-22 09:01 → 4SSUR 05-22 09:01
PROVIDERS: ADMIT Hospitalist; ATTEND Hospitalist
DX: N39.0 Urinary tract infection, site not specified (principal); J44.9 Chronic obstructive pulmonary disease, unspecified; G47.33 Obstructive sleep apnea (adult) (pediatric); E66.9 Obesity, unspecified; Z68.36 Body mass index [BMI] 36.0-36.9, adult; Z66 Do not resuscitate; I10 Essential (primary) hypertension; F41.9 Anxiety disorder, unspecified; F31.9 Bipolar disorder, unspecified; Z71.6 Tobacco abuse counseling; F17.200 Nicotine dependence, unspecified, uncomplicated; G93.41 Metabolic encephalopathy; I11.0 Hypertensive heart disease with heart failure; I50.9 Heart failure, unspecified; K21.9 Gastro-esophageal reflux disease without esophagitis; Z79.899 Other long term (current) drug therapy; Z87.440 Personal history of urinary (tract) infections; Z91.5 Personal history of self-harm; Z83.3 Family history of diabetes mellitus
CPT/HCPCS: 96361; 96365; 96366; 96372 ×3; 99285; 51798; 36415; 94640; 97116; 97162; 97166; 80053; 80048; 83605; 83735; 85025 ×2; 85610; 85730; 81001; 87040; 87086; G0378 ×3; J1644 ×3; J0696 ×3; J7512

== ENCOUNTER 2019-08-10 18:07 | Inpatient (IN) | payer MEDICARE ==
[2019-08-10] MEDS ORDERED: SODIUM CHLORIDE 0.9% 1,000 ML IV ONE (18:45)
--- NOTE | 2019-08-10 18:54 | ED ---
General Adult HPI - General Chief complaint: Altered Mental Status Stated complaint: off balance/dehydration Source: patient, family, RN notes reviewed, old records reviewed Mode of arrival: ambulatory Limitations: altered mental status - History of Present Illness Initial comments: Chief complaint and history of present illness is a 73-year-old male brought in by his niece. She's had him in her home for over 2 years. She states that approximately 2 days ago he stood up on the kitchen said he felt weak and fell forward bump hit his head. At the time he had no bleeding or significant injuries. But since then she states little confused but then would clear. This has happened in the past and he had urinary tract infections. The patient's answering all questions appropriately at this time. Denying any significant discomfort. Alert and oriented. - Related Data Home Medications Medication Instructions Recorded Confirmed Metoprolol Succinate [Toprol XL] 50 mg PO HS 09/05/16 08/10/19 Levocetirizine Dihydrochloride 5 mg PO DAILY 11/23/18 08/10/19 [Xyzal] Abilify(Unknown Dose) 1 tab PO DAILY 08/10/19 08/10/19 FLUoxetine HCL [PROzac] 30 mg PO HS 08/10/19 08/10/19 Loperamide HCl [Imodium A-D] 4 mg PO HS 08/10/19 08/10/19 Allergies Allergy/AdvReac Type Severity Reaction Status Date / Time No Known Allergies Allergy Verified 08/10/19 18:45 Review of Systems ROS Statement: Those systems with pertinent positive or pertinent negative responses have been documented in the HPI. Review of systems. The patient's denying any headache no visual acuity changes denies neck pain or chest pain the patient COPD or and breathes with pursed lips . Sleeps at night with oxygen or occasionally a CPAP machine but he takes it off. No nausea no vomiting no diarrhea. Patient did have a transurethral resection of his prostate approximately 3 weeks ago. He has had 2 catheters placed. The bladder is not emptying a normal fashion. His knee states he does not drink enough liquids throughout the day and the urine appears to be concentrated. No fever complained of. Patient states when he stands he is afraid he might fall he can't decide if he feels weak here or dizziness causes his symptoms. All systems reviewed. Past medical problems significant for anxiety and bipolar disorder which is appeared to be under control. History of CHF, COPD GERD and hypertension. Some medications of an altered because his blood pressure was too low at times. The patient's surgeries include adenoidectomy left wrist surgery. He drank socially but no alcohol for the past 2 years. He does smoke strongly encouraged to stop. Family history noncontrib utory no known ALLERGIES. ROS Other: All systems not noted in ROS Statement are negative. Past Medical History Past Medical History: Heart Failure, COPD, GERD/Reflux, Hypertension Additional Past Medical History / Comment(s): pt states sexual issue in the past would not go into deals History of Any Multi-Drug Resistant Organisms: None Reported Past Surgical History: Adenoidectomy Additional Past Surgical History / Comment(s): left wrist surgery 12 years ago, (Pt has AMS, denies adenoidectomy) Past Anesthesia/Blood Transfusion Reactions: No Reported Reaction Past Psychological History: Anxiety, Bipolar, Depression Smoking Status: Current every day smoker Past Alcohol Use History: Occasional Past Drug Use History: None Reported - Past Family History Mother Family Medical History: Cancer Father Family Medical History: Diabetes Mellitus General Exam - General Exam Comments Initial Comments: General: The patient is awake and alert, brought in by his niece because of mild confusion. He also fell 2 days ago and bumped his head. She states in the past when he had urinary tract infections he's had some mental changes. Currently answering questions appropriately without complaints. Vital signs show temperature 98.8 pulse 64 respiratory rate 18 pulse ox 97% room air blood pressure 123/78 Eye: Pupils are equal, round and reactive to light, extra-ocular movements are intact; there is normal conjunctiva bilaterally. No signs of icterus. Ears, nose, mouth and throat: Mildly dry mucous membranes Neck: The neck is supple, no complaint of neck pain. No bruising to the scalp. Cardiovascular: There is a regular rate and rhythm. No murmur, rub or gallop is appreciated. Respiratory: Decreased breath sounds, history of COPD, patient breathes with pursed lips. Has updrafts 3 times daily. Gastrointestinal: Soft, non-distended, non-tender abdomen without masses or organomegaly noted. There is no rebound or guarding present. No CVA tenderness. Bowel sounds are unremarkable. Genitourinary, recent history of a TURP with catheter that was n eeded to be placed a week after surgery because the patient wasn't urinating. Back: Denies back pain Musculoskeletal: Normal ROM, no tenderness, There is no pedal edema. There is no calf tenderness or swelling. Sensation intact. Pulses equal bilaterally 2+. Neurological: Alert, answers questions appropriately. Moves upper and lower extremities without apparent discomfort. States that when he tries to ambulate he's afraid he might fall and describes it as more of a dizziness no weakness. He states when he fell 2 days ago it felt like his legs went out from under him. Skin: Skin is warm and dry and no rashes or lesions are noted. Psychiatric: Cooperative, history of and is treated for bipolar disorder. Not depressed at this time. Limitations: altered mental status Course Vital Signs 08/10/19 08/10/19 08/10/19 18:10 19:30 20:30 Temperature 98.8 F Pulse Rate 64 66 61 Respiratory 18 12 12 Rate Blood Pressure 123/78 119/75 127/76 O2 Sat by Pulse 97 94 L 94 L Oximetry EKG Findings - EKG Comments: EKG Findings:: EKG was done and reviewed at 1908 showing normal sinus rhythm rare PVCs no acute ST elevation . Rate 63 WV interval is 166 QRS [address] QT [address] Paul Medical Decision Making - Medical Decision Making Medical decision making; is a 73-year-old male who lives with his niece. The niece reports that he fell 2 days ago. He did bump his head was no loss of consciousness. Patient has been acting as though he might have urinary tract infection which has happened in the past causing to be mildly confused for short period of time each day. At this time the patient is alert and oriented. Has no complaints. The patient had a TURP procedure approximately 2 weeks ago. Necessitating continued use of a Chance catheter. The patient's labs are within normal limits urine though shows evidence of large leuk esterase greater than 100 red blood cells many clumps of white blood cells. Patient had CT of the brain and cervical spine radiologist combined impression is #1 mild generalized atrophy and patchy and confluent changes of chronic small vessel ischemic disease. No acute intracranial abnormality seen. #2 no acute fracture or malalignment of the cervical spine. Moderate to advanced spondylotic change. 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 As read by Dr. Mcneill Chest x-ray was done and reviewed by radiologist his impression is mildly enlarged. Diffuse interstitial prominence has a chronic appearance. No denise consolidation or pleural effusion. Impression; cardiomegaly a chronic-appearing changes. No definite acute process. As read by Dr. Mcneill The plan this size for the patient to be continued on Levaquin until all cultures return. He remains alert and oriented. No signs of dehydration or sepsis at this time. The patient be admitted to Dr. Moore. Case discussed with his nurse practitioner, Shilpa The patient's [id number] Chance catheter was removed and a new one was rep laced. - Lab Data Result diagrams: 08/10/19 18:56 08/10/19 18:56 Lab Results 08/10/19 08/10/19 08/10/19 Range/Units 18:56 18:56 18:56 WBC 9.8 (3.8-10.6) k/uL RBC 4.67 (4.30-5.90) m/uL Hgb 14.6 (13.0-17.5) gm/dL Hct 43.3 (39.0-53.0) % MCV 92.8 (80.0-100.0) fL MCH 31.3 (25.0-35.0) pg MCHC 33.8 (31.0-37.0) g/dL RDW 13.9 (11.5-15.5) % Plt Count 196 (150-450) k/uL Neutrophils % 77 % Lymphocytes % 10 % Monocytes % 6 % Eosinophils % 3 % Basophils % 3 % Neutrophils # 7.5 (1.3-7.7) k/uL Lymphocytes # 1.0 (1.0-4.8) k/uL Monocytes # 0.6 (0-1.0) k/uL Eosinophils # 0.3 (0-0.7) k/uL Basophils # 0.3 H (0-0.2) k/uL PT 10.7 (9.0-12.0) sec INR 1.0 (<1.2) APTT 26.8 (22.0-30.0) sec Sodium 140 (137-145) mmol/L Potassium 5.0 (3.5-5.1) mmol/L Chloride 103 (98-107) mmol/L Carbon Dioxide 29 (22-30) mmol/L Anion Gap 8 mmol/L BUN 16 (9-20) mg/dL Creatinine 0.83 (0.66-1.25) mg/dL Est GFR (CKD-EPI)AfAm >90 (>60 ml/min/1.73 sqM) Est GFR (CKD-EPI)NonAf 86 (>60 ml/min/1.73 sqM) Glucose 114 H (74-99) mg/dL Calcium 9.0 (8.4-10.2) mg/dL Total Bilirubin 0.6 (0.2-1.3) mg/dL AST 24 (17-59) U/L ALT 13 L (21-72) U/L Alkaline Phosphatase 64 (38-126) U/L Troponin I (0.000-0.034) ng/mL Total Protein 6.4 (6.3-8.2) g/dL Albumin 3.6 (3.5-5.0) g/dL Urine Color Urine Appearance (Clear) Urine pH (5.0-8.0) Ur Specific [place] (1.001-1.035) Urine Protein (Negative) Urine Glucose (UA) (Negative) Urine Ketones (Negative) Urine Blood (Negative) Urine Nitrite (Negative) Urine Bilirubin (Negative) Urine Urobilinogen (<2.0) mg/dL Ur Leukocyte Esterase (Negative) Urine RBC (0-5) /hpf Urine WBC (0-5) /hpf Urine WBC Clumps (None) /hpf Amorphous Sediment (None) /hpf Urine Mucus (None) /hpf 08/10/19 08/10/19 Range/Units 18:56 18:56 WBC (3.8-10.6) k/uL RBC (4.30-5.90) m/uL Hgb (13.0-17.5) gm/dL Hct (39.0-53.0) % MCV (80.0-100.0) fL MCH (25.0-35.0) pg MCHC (31.0-37.0) g/dL RDW (11.5-15.5) % Plt Count (150-450) k/uL Neutrophils % % Lymphocytes % % Monocytes % % Eosinophils % % Basophils % % Neutrophils # (1.3-7.7) k/uL Lymphocytes # (1.0-4.8) k/uL Monocytes # (0-1.0) k/uL Eosinophils # (0-0.7) k/uL Basophils # (0-0.2) k/uL PT (9.0-12.0) sec INR (<1.2) APTT (22.0-30.0) sec Sodium (137-145) mmol/L Potassium (3.5-5.1) mmol/L Chloride (98-107) mmol/L Carbon Dioxide (22-30) mmol/L Anion Gap mmol/L BUN (9-20) mg/dL Creatinine (0.66-1.25) mg/dL Est GFR (CKD-EPI)AfAm (>60 ml/min/1.73 sqM) Est GFR (CKD-EPI)NonAf (>60 ml/min/1.73 sqM) Glucose (74-99) mg/dL Calcium (8.4-10.2) mg/dL Total Bilirubin (0.2-1.3) mg/dL AST (17-59) U/L ALT (21-72) U/L Alkaline Phosphatase (38-126) U/L Troponin I <0.012 (0.000-0.034) ng/mL Total Protein (6.3-8.2) g/dL Albumin (3.5-5.0) g/dL Urine Color Yellow Urine Appearance Turbid (Clear) Urine pH 5.5 (5.0-8.0) Ur Specific [place] 1.024 (1.001-1.035) Urine Protein 2+ H (Negative) Urine Glucose (UA) Negative (Negative) Urine Ketones Negative (Negative) Urine Blood Moderate H (Negative) Urine Nitrite Negative (Negative) Urine Bilirubin Negative (Negative) Urine Urobilinogen <2.0 (<2.0) mg/dL Ur Leukocyte Esterase Large H (Negative) Urine RBC >182 H (0-5) /hpf Urine WBC >182 H (0-5) /hpf Urine WBC Clumps Many H (None) /hpf Amorphous Sediment Occasional H (None) /hpf Urine Mucus Many H (None) /hpf Disposition Clinical Impression: Urinary tract infection Disposition: ADMITTED IP TO THIS [facility] Condition: Fair Is patient prescribed a controlled substance at d/c from ED?: No Referrals: Alvin Mott MD [Primary Care Provider] - 1-2 days
[2019-08-10 19:09] LABS: Basophils # (A) 0.3 k/uL (0-0.2); Basophils % (A) 3 %; Eosinophils # (A) 0.3 k/uL (0-0.7); Eosinophils % (A) 3 %; HCT 43.3 % (39.0-53.0); HGB 14.6 gm/dL (13.0-17.5); Lymphocytes % (A) 10 %; MCH 31.3 pg (25.0-35.0); MCHC 33.8 g/dL (31.0-37.0); MCV 92.8 fL (80.0-100.0); Monocytes # (A) 0.6 k/uL (0-1.0); Monocytes % (A) 6 %; Neutrophils # (A) 7.5 k/uL (1.3-7.7); Neutrophils % (A) 77 %; Platelet Count 196 k/uL (150-450); RBC 4.67 m/uL (4.30-5.90); RDW 13.9 % (11.5-15.5); WBC 9.8 k/uL (3.8-10.6)
[2019-08-10 19:16] LABS: Amorphous Sediment,Urine Occasional /hpf; Appearance,Urine Turbid (Clear); Bilirubin,Urine Negative (Negative); Blood,Urine Moderate (Negative); Color,Urine Yellow; Glucose,Urine (UA) Negative (Negative); Ketones,Urine Negative (Negative); Leukocyte Esterase,Urine Large (Negative); Mucus,Urine Many /hpf; Nitrite,Urine Negative (Negative); PH, Urine 5.5 (5.0-8.0); Protein,Urine 2+ (Negative); RBC,Urine >182 /hpf (0-5); Specific Gravity,Urine 1.024 (1.001-1.035); Urobilinogen,Urine <2.0 mg/dL (<2.0)
[2019-08-10 19:18] LABS: Partial Thromboplastin Time 26.8 sec (22.0-30.0); Prothrombin Time 10.7 sec (9.0-12.0)
[2019-08-10 19:23] LABS: ALT 13 U/L (21-72); AST 24 U/L (17-59); African American GFR (CKD) >90 (>60 ml/min/1.73 sqM); Albumin 3.6 g/dL (3.5-5.0); Alkaline Phosphatase 64 U/L (38-126); Anion Gap 8 mmol/L; Blood Urea Nitrogen 16 mg/dL (9-20); Carbon Dioxide 29 mmol/L (22-30); Chloride 103 mmol/L (98-107); Glucose 114 mg/dL (74-99); Sodium 140 mmol/L (137-145); Total Bilirubin 0.6 mg/dL (0.2-1.3); Total Protein 6.4 g/dL (6.3-8.2)
[2019-08-10] MEDS ORDERED: LEVOFLOXACIN 500MG-D5W PMX 500 MG in DEXTROSE/WATER 1 100ML.BAG IVPB STA (20:08)
--- NOTE | 2019-08-10 20:20 | CT ---
EXAMINATION TYPE: CT brain yuriyine wo con DATE OF EXAM: 08/10/2019 COMPARISON: Brain 09/15/2016 HISTORY: 73-year-old male Dizziness with fall injury CT DLP: 1743.4 mGycm Automated exposure control for dose reduction was used. Technique: Examination of the head was done in axial plane without intravenous contrast. Coronal and sagittal reconstructions performed. CT of the cervical spine was obtained in axial plane without intravenous injection of contrast mater ial. Coronal and sagittal reformatted images were obtained from the axial views for evaluation of f ractures, spinal alignment and canal. FINDINGS: Head: There is no evidence of acute intracranial hemorrhage, acute ischemic changes, mass, mass-effect, or extra-axial fluid collection. There is no effacement of cerebral sulci or basal subarachnoid cister ns. There is no hydrocephalus. There is no midline shift. Baker-white matter distinction is preserv ed. Mild generalized supratentorial volume loss. Old lacunar infarcts in the left basal ganglia with mode rate patchy and confluent white matter hypodensities in both cerebral hemispheres. Moderate prostatic calcifications carotid siphons. Dominant right vertebral artery. Trace scattered mucosal thickening paranasal sinuses. Cerumen in bilateral external auditory canals. Mastoid air cells are well pneumatized. Orbits and globes are intact. Cervical spine: No cranial cervical junction of the body, predental space widening, or prevertebral soft tissue swell ing. Moderate to advanced disc/endplate degenerative change mid to lower cervical spine with advanced hype rtrophic facet and uncovertebral joint arthropathy throughout. Some heterotopic ossification is noted along the posterior midline mid to lower cervical spine. No acute fracture of the cervical spine. Alignment is maintained though there is straightening of the normal cervical lordosis. Disc osteophyte complex may result in a moderate spinal canal stenosis at C6-C7 though artifact from the patient's shoulders limits assessment. There seems to be old, corticated fracture from the T1 spi nous process. Degenerative changes at the sternoclavicular joints. Sagittal and coronal reformatted images confirm above findings. COMBINED IMPRESSION: 1. Mild generalized atrophy and patchy and confluent changes of chronic small vessel ischemic disease . No acute intracranial abnormality seen. 2. No acute fracture or malalignment of the cervical spine. Moderate to advanced spondylotic change. 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
--- NOTE | 2019-08-10 20:49 | XR ---
EXAMINATION TYPE: XR chest 2V DATE OF EXAM: 08/10/2019 COMPARISON: 11/23/2018 HISTORY: 73-year-old male confusion, altered mental status TECHNIQUE: AP and lateral views FINDINGS: Heart is mildly enlarged. Diffuse interstitial prominence has a chronic appearance. No denise consolid ation or pleural effusion. IMPRESSION: Cardiomegaly and chronic appearing changes. No definite acute process.
[2019-08-10] MEDS ORDERED: NALOXONE 0.4 MG/ML 1 ML VIAL IV PRN (21:01)
[2019-08-10] MEDS ORDERED: ACETAMINOPHEN TAB 325 MG TAB PO PRN (21:01)
[2019-08-10] MEDS ORDERED: LIDOCAINE URO-JET JELLY 2% 5 ML KIT URETHRAL ONE (21:24)
[2019-08-10] MEDS: SODIUM CHLORIDE 0.9% 1,000 ML IV SCH ×2 (21:31→23:09)
[2019-08-10 23:05] VITALS: BMI 35.4
[2019-08-11] MEDS ORDERED: ABILIFY PO SCH (09:00)
[2019-08-11] MEDS ORDERED: IPRATROPIUM-ALBUTEROL 3 ML NEB INHALATION PRN (10:08)
--- NOTE | 2019-08-11 10:49 | P.HPIM ---
History of Present Illness 73-year-old pleasant male with a Chance catheter for his prostate problems patient has recent plastic surgery was 1 because of confusion confusion resolved at this time.noted by the family that patient has pus coming out of the Chance catheter for the catheter was replaced and patient was subsequently admitted for urinary tract infection patient has significantly abnormal urine patient denied any fevers appropriate pain patient denied any CVA painpatient was never leukocytosis. Patient has staph epidermidis and the uterus in the past. Patient to does have history of sleep apnea doesn't wear CPAP machine at home bicarbonate is 29, does have history of COPD continues to smoke. Although his in's no wheezing on exam mildly decreased air entry bilateral lung cevallos. Review of Systems REVIEW OF SYSTEMS: CONSTITUTIONAL: No fever, no malaise, no fatigue. HEENT: No recent visual problems or hearing problems. Denied any sore throat. CARDIOVASCULAR: No chest pain, orthopnea, PND, no palpitations, no syncope. PULMONARY: No shortness of breath, no cough, no hemoptysis. GASTROINTESTINAL: No diarrhea, no nausea, no vomiting, no abdominal pain. NEUROLOGICAL: No headaches, no weakness, no numbness. HEMATOLOGICAL: Denies any bleeding or petechiae. GENITOURINARY: Denies any burning micturition, frequency, or urgency. MUSCULOSKELETAL/RHEUMATOLOGICAL: Denies any joint pain, swelling, or any muscle pain. ENDOCRINE: Denies any polyuria or polydipsia. The rest of the 14-point review of systems is negative. Past Medical History Past Medical History: Heart Failure, COPD, GERD/Reflux, Hypertension Additional Past Medical History / Comment(s): pt states sexual issue in the past would not go into deals History of Any Multi-Drug Resistant Organisms: None Reported Past Surgical History: Adenoidectomy Additional Past Surgical History / Comment(s): left wrist surgery 12 years ago, (Pt has AMS, denies adenoidectomy) Past Anesthesia/Blood Transfusion Reactions: No Reported Reaction Past Psychological History: Anxiety, Bipolar, Depression Additional Psychological History / Comment(s): Patient caregiver states that symptoms have been worse since incarceration in June, previous suicide attempt by cutting left wrist "years ago", per patient. Smoking Status: Current every day smoker Past Alcohol Use History: Occasional Additional Past Alcohol Use History / Comment(s): pt states he used to drink daily but quit 6 months ago Past Drug Use History: None Reported - Past Family History Mother Family Medical History: Cancer Father Family Medical History: Diabetes Mellitus Medications and Allergies Home Medications Medication Instructions Recorded Confirmed Type Metoprolol Succinate [Toprol XL] 50 mg PO HS 09/05/16 08/10/19 History Levocetirizine Dihydrochloride 5 mg PO DAILY 11/23/18 08/10/19 History [Xyzal] Abilify(Unknown Dose) 1 tab PO DAILY 08/10/19 08/10/19 History FLUoxetine HCL [PROzac] 30 mg PO HS 08/10/19 08/10/19 History Loperamide HCl [Imodium A-D] 4 mg PO HS 08/10/19 08/10/19 History Allergies Allergy/AdvReac Type Severity Reaction Status Date / Time No Known Allergies Allergy Verified 08/10/19 18:45 Physical Exam Vitals: Vital Signs Temp Pulse Pulse Resp BP BP Pulse Ox 08/11/19 08:22 96 08/11/19 07:10 98.4 F 63 16 139/80 93 L 08/11/19 01:24 98.4 F 59 L 14 131/72 92 L 08/10/19 22:20 97.9 F 69 18 158/89 97 08/10/19 21:30 63 12 134/78 95 08/10/19 21:00 59 L 18 135/90 93 L 08/10/19 20:30 61 12 127/76 94 L 08/10/19 19:30 66 12 119/75 94 L 08/10/19 18:10 98.8 F 64 18 123/78 97 Intake and Output 08/10/19 08/11/19 08/11/19 22:59 06:59 14:59 Intake Total 120 120 240 Output Total 400 Balance 120 -280 240 Intake: Oral 120 120 240 Output: Urine 400 Other: Voiding Method Indwelling Catheter Indwelling Catheter Indwelling Catheter Weight 122.016 kg PHYSICAL EXAMINATION: GENERAL: The patient is alert and oriented x3, not in any acute distress. obese HEENT: Pupils are round and equally reacting to light. EOMI. No scleral icterus. No conjunctival pallor. Normocephalic, atraumatic. No pharyngeal erythema. No thyromegaly. CARDIOVASCULAR: S1 and S2 present. No murmurs, rubs, or gallops. PULMONARY: Chest is clear to auscultation, no wheezing or crackles. ABDOMEN: Soft, nontender, nondistended, normoactive bowel sounds. No palpable o rganomegaly. MUSCULOSKELETAL: No joint swelling or deformity. EXTREMITIES: No cyanosis, clubbing, or pedal edema. NEUROLOGICAL: Gross neurological examination did not reveal any focal deficits. SKIN: No rashes. Results CBC & Chem 7: 08/10/19 18:56 08/10/19 18:56 Labs: Abnormal Lab Results - Last 24 Hours (Table) 08/10/19 08/10/19 08/10/19 Range/Units 18:56 18:56 18:56 Basophils # 0.3 H (0-0.2) k/uL Glucose 114 H (74-99) mg/dL ALT 13 L (21-72) U/L Urine Protein 2+ H (Negative) Urine Blood Moderate H (Negative) Ur Leukocyte Esterase Large H (Negative) Urine RBC >182 H (0-5) /hpf Urine WBC >182 H (0-5) /hpf Urine WBC Clumps Many H (None) /hpf Amorphous Sediment Occasional H (None) /hpf Urine Mucus Many H (None) /hpf Thrombosis Risk Factor Assmnt - Choose All That Apply Each Risk Factor Represents 3 Points: Age 75 years or older Thrombosis Risk Factor Assessment Total Risk Factor Score: 3 Thrombosis Risk Factor Assessment Level: Moderate Risk Assessment and Plan Plan: -possible toxic encephalopathy from possibility of urinary tract infection awaiting urine cultures patient will be started on Rocephin patient previous urine cultures appears to be colonization with staph epidermidis. Chance catheter was replaced continue with IV fluids -COPD without any acute exacerbation patient will resume and inhaled steroids inhalational treatments -Morbid obesity sleep apnea patient was counseled regarding importance of wearing CPAP machine -Obesity -test esophageal reflux disease -Hypertension patient will be resumed on his home medication will be monitored -Depression -DVT prophylaxis with subcutaneous heparin
[2019-08-11] MEDS: FLUTICASONE 50MCG/SPRAY NASAL 16GM EA NOSTRIL SCH (11:45)
[2019-08-11] MEDS: SODIUM CHLORIDE 0.9% 1,000 ML IV SCH (11:45)
[2019-08-11] MEDS: ARIPiprazole 5 MG TAB PO SCH (11:46)
[2019-08-11] MEDS: LORATADINE 10 MG TAB PO SCH (11:46)
[2019-08-11] MEDS: HEPARIN SODIUM,PORCINE 5,000 UNIT/ML 1 ML VIAL SQ SCH (17:46)
[2019-08-11] MEDS ORDERED: LEVOFLOXACIN 500MG-D5W PMX 500 MG in DEXTROSE/WATER 1 100ML.BAG IVPB SCH (20:00)
[2019-08-11] MEDS: LOPERAMIDE 2 MG CAP PO SCH (21:19)
[2019-08-11] MEDS: METOPROLOL SUCCINATE (ER) 50 MG TAB.ER.24H PO SCH (21:19)
[2019-08-11] MEDS: FLUoxetine HCL 10 MG CAP PO SCH (21:19)
[2019-08-11] MEDS: SYMBICORT 80-4.5 MCG INHALER INHALATION SCH (21:44)
[2019-08-12] MEDS: HEPARIN SODIUM,PORCINE 5,000 UNIT/ML 1 ML VIAL SQ SCH ×4 (00:47→23:04)
[2019-08-12] MEDS: SODIUM CHLORIDE 0.9% 1,000 ML IV SCH ×3 (00:47→23:08)
[2019-08-12] MEDS: ARIPiprazole 5 MG TAB PO SCH (08:03)
[2019-08-12] MEDS: LORATADINE 10 MG TAB PO SCH (08:03)
[2019-08-12] MEDS: FLUTICASONE 50MCG/SPRAY NASAL 16GM EA NOSTRIL SCH (08:04)
[2019-08-12] MEDS: SYMBICORT 80-4.5 MCG INHALER INHALATION SCH ×2 (08:23→21:14)
--- NOTE | 2019-08-12 11:40 | P.PN ---
Subjective Patient sitting in chair at bedside. States he was ambulated by physical therapy. Patient continues with Chance catheter. Awaiting culture report from urine. Plan is for discharge home has [facility]. Patient is a short-term memory problems Objective - Vital Signs Vital signs: Vital Signs Temp 98.9 F 08/12/19 08:02 Pulse 52 L 08/12/19 08:02 Resp 18 08/12/19 08:02 BP 147/82 08/12/19 08:02 Pulse Ox 96 08/12/19 08:02 Intake & Output 08/11/19 08/12/19 08/12/19 18:59 06:59 18:59 Intake Total 1380 1170 Output Total 700 550 325 Balance 680 -550 845 Intake: Intake, IV Titration 620 950 Amount Sodium Chloride 0.9% 1, 520 950 000 ml @ 80 mls/hr IV . [id number] [facility]IRE[facility] Rx#:[id number] cefTRIAXone 2 gm In 100 Sodium Chloride 0.9% 50 ml @ 100 mls/hr IVPB Q24HR [facility] Rx#:[id number] Oral 760 220 Output: Urine 700 550 325 Uretheral (Chance) 700 Other: Voiding Method Indwelling Catheter Indwelling Catheter - Constitutional General appearance: Present: mild distress - EENT Eyes: Present: PERRLA Ears: bilateral: normal - Neck Neck: Present: normal ROM - Respiratory Respiratory: bilateral: CTA - Cardiovascular Rhythm: regular - Gastrointestinal General gastrointestinal: Present: soft - Integumentary Integumentary: Present: normal - Neurologic Neurologic: Present: CNII-XII intact - Psychiatric Psychiatric Comment(s): Patient awake and alert has short-term memory problems - Labs CBC & Chem 7: 08/10/19 18:56 08/10/19 18:56 Labs: Microbiology - Last 24 Hours (Table) 08/10/19 18:56 Blood Culture - Preliminary Blood No Growth after 24 hours 08/10/19 18:56 Urine Culture - Preliminary Urine,Voided Assessment and Plan Plan: Assessment Encephalopathy secondary urinary tract infection COPD stable Morbid obesity BMI 35.5 Sleep apnea with CPAP machine Hypertension Depression Plan Awaiting culture from urinary tract infection Hopeful discharge soon to home with [facility]
--- NOTE | 2019-08-12 14:53 | CDI ---
Documentation Clarification Form Date: 08/12/2019 2:32:30 PM From: Bianca Franz Phone: Admit Date: 08/11/2019 10:13:00 AM Patient Name: Mihir Gottlieb Visit Number: [id number] Discharge Date: ATTENTION: The Clinical Documentation Specialists (CDI) and [facility] Coding Staff appreciate your assistance in clarifying documentation. Please respond to the clarification below the line at the bottom and electronically sign. The CDI & [facility] Coding staff will review the response and follow-up if needed. Please note: Queries are made part of the Legal Health Record. If you have any questions, please contact the author of this message via ITS. Dr. Alvin Mott UTI was documented in the H/P and subsequent progress notes and further clarification is needed. . History/Risk Factors: TURP of he is prostate, Hypertension, COPD, Heart Failure Clinical Indicators: 73-year- old male with history of transuretheral resection of his prostate approximately 3 weeks ago. He has had 2 catheters placed, the bladder is not emptying in a normal fashion. 08/10/19 ER evaluation has noted a urinary catheter on admission, chronic Chance catheter that has pus coming out of the Chance catheter , it was replaced and the patient was admitted for urinary tract infection. Vital Signs: 123/78 64 18 98.8 97 % RA WBC: 9.8 Urinalysis: Ur Leukocyte Esterase Large, Urine WBC >182 Urine Culture: Preliminary Gram neg Bacilli, Group D enterococcus Treatment Monitor Labs: CBC, Antibiotics: Rocephin IV Please document the condition that these clinical indicators signify, whether Present on Admission, and cause if known: UTI -If due to Chance catheter, Present on admission -Specify organism, if known -Identify location of infection (if known) Bladder, Kidney, Urethra Contaminated specimen Other, please specify Unable to determine (Last Revision: August 2017) MTDD
[2019-08-12] MEDS: FLUoxetine HCL 10 MG CAP PO SCH (20:38)
[2019-08-12] MEDS: LOPERAMIDE 2 MG CAP PO SCH (20:38)
[2019-08-12] MEDS: METOPROLOL SUCCINATE (ER) 50 MG TAB.ER.24H PO SCH (22:23)
[2019-08-13] MEDS: SYMBICORT 80-4.5 MCG INHALER INHALATION SCH (07:15)
[2019-08-13] MEDS: FLUTICASONE 50MCG/SPRAY NASAL 16GM EA NOSTRIL SCH (08:24)
[2019-08-13] MEDS: ARIPiprazole 5 MG TAB PO SCH (08:25)
[2019-08-13] MEDS: HEPARIN SODIUM,PORCINE 5,000 UNIT/ML 1 ML VIAL SQ SCH (08:25)
[2019-08-13] MEDS: LORATADINE 10 MG TAB PO SCH (08:25)
[2019-08-13 08:33] VITALS: BP 145/74; PULSE 59; RESP 16; TEMP 98.1
--- NOTE | 2019-08-13 12:24 | P.PN ---
Subjective Patient resting in bed comfortably without complaint. Easily arousable alert and orientated. Awaiting sensitivity to culture. Patient has been resistant in the past Objective - Vital Signs Vital signs: Vital Signs Temp 98.1 F 08/13/19 08:30 Pulse 59 L 08/13/19 08:30 Resp 16 08/13/19 08:30 BP 145/74 08/13/19 08:30 Pulse Ox 90 L 08/13/19 08:30 Intake & Output 08/12/19 08/13/19 08/13/19 18:59 06:59 18:59 Intake Total 1220 1010 250 Output Total 325 1000 Balance 895 10 250 Intake: Intake, IV Titration 1000 760 Amount Sodium Chloride 0.9% 1, 950 760 000 ml @ 80 mls/hr IV . [id number] ALIREZA Rx#:[id number] cefTRIAXone 2 gm In 50 Sodium Chloride 0.9% 50 ml @ 100 mls/hr IVPB Q24HR ALIREZA Rx#:[id number] Oral 220 250 250 Output: Urine 325 1000 Other: Voiding Method Indwelling Catheter Indwelling Catheter - Constitutional General appearance: Present: mild distress - EENT Eyes: Present: PERRLA Ears: bilateral: normal - Neck Neck: Present: normal ROM - Respiratory Respiratory: bilateral: diminished - Cardiovascular Rhythm: regular Abnormal Heart Sounds: Present: S3 Gallop - Gastrointestinal General gastrointestinal: Present: soft - Genitourinary Genitourinary Comment(s): Chance catheter in place - Integumentary Integumentary: Present: normal - Neurologic Neurologic: Present: CNII-XII intact - Musculoskeletal Musculoskeletal: Present: generalized weakness - Psychiatric Psychiatric: Present: A&O x's 3, appropriate affect - Labs CBC & Chem 7: 08/10/19 18:56 08/10/19 18:56 Labs: Microbiology - Last 24 Hours (Table) 08/10/19 18:56 Blood Culture - Preliminary Blood No Growth after 48 hours 08/10/19 18:56 Urine Culture - Preliminary Urine,Voided Gram Neg Bacilli Group D Enterococcus Assessment and Plan Plan: Assessment Encephalopathy secondary to urinary tract infection Urinary tract infection secondary to Chance catheter use history of BPH present on admission COPD stable Obesity BMI 35.5 Hypertension Plan Awaiting culture sensitivity will discharge soon
--- NOTE | 2019-08-13 14:06 | P.DS ---
Providers Date of admission: 08/11/19 10:13 Expected date of discharge: 08/13/19 Attending physician: Alvin Mott Primary care physician: Alvin Mott [facility] Course: 73-year-old male presented to the emergency room with confusion. Patient is a history of fall for catheter use from BPH. Noted the purulent the urine. The catheter was changed . Patient was started on your assessment patient improving and ready discharge home Assessment urinary tract infection secondary to full use history of BPH present admission encephalopathy secondary to urinary tract infection COPD stable obesity BMI 35 hypertension Plan discharge home Augmentin will be started Patient Condition at Discharge: Fair Plan - Discharge Summary New Discharge Prescriptions: No Action Metoprolol Succinate [Toprol XL] 50 mg PO HS Levocetirizine Dihydrochloride [Xyzal] 5 mg PO DAILY FLUoxetine HCL [PROzac] 30 mg PO HS Loperamide HCl [Imodium A-D] 4 mg PO HS ARIPiprazole [Abilify] 5 mg PO DAILY Discharge Medication List Metoprolol Succinate [Toprol XL] 50 mg PO HS 09/05/16 [History] Levocetirizine Dihydrochloride [Xyzal] 5 mg PO DAILY 11/23/18 [History] FLUoxetine HCL [PROzac] 30 mg PO HS 08/10/19 [History] Loperamide HCl [Imodium A-D] 4 mg PO HS 08/10/19 [History] ARIPiprazole [Abilify] 5 mg PO DAILY 08/11/19 [History] Follow up Appointment(s)/Referral(s): Alvin Mott MD [Primary Care Provider] - 1-2 days [facility], [NON-STAFF] - As Needed
[2019-08-13] MEDS: SODIUM CHLORIDE 0.9% 1,000 ML IV SCH (14:33)
== END 2019-08-13 16:07 | disposition home health service (06) | DRG 698 ==
LOC: EC 18:07 → 4SSUR 21:07 → OBSVTOIN 08-11 10:13
PROVIDERS: ADMIT Family Medicine; ATTEND Family Medicine
DX: T83.511A Infection and inflammatory reaction due to indwelling urethral catheter, initial encounter (principal); G92 Toxic encephalopathy; N39.0 Urinary tract infection, site not specified; I11.0 Hypertensive heart disease with heart failure; I50.9 Heart failure, unspecified; J44.9 Chronic obstructive pulmonary disease, unspecified; E86.0 Dehydration; S09.8XXA Other specified injuries of head, initial encounter; E66.01 Morbid (severe) obesity due to excess calories; F17.200 Nicotine dependence, unspecified, uncomplicated; F32.9 Major depressive disorder, single episode, unspecified; F41.9 Anxiety disorder, unspecified; G47.30 Sleep apnea, unspecified; K21.9 Gastro-esophageal reflux disease without esophagitis; N40.0 Benign prostatic hyperplasia without lower urinary tract symptoms; R41.3 Other amnesia; Z68.35 Body mass index [BMI] 35.0-35.9, adult; Z91.5 Personal history of self-harm; Z87.440 Personal history of urinary (tract) infections; Z79.899 Other long term (current) drug therapy; Z83.3 Family history of diabetes mellitus; W18.30XA Fall on same level, unspecified, initial encounter; Y84.6 Urinary catheterization as the cause of abnormal reaction of the patient, or of later complication, without mention of misadventure at the time of the procedure
CPT/HCPCS: 36415; 51702; 70450; 71046; 72125; 80053; 81001; 84484; 85025; 85610; 85730; 87040; 87077; 87086; 87186; 93005; 94640; 94760; 96361; 96365; 99285

== ENCOUNTER 2019-10-30 15:49 | Inpatient (IN) | payer MEDICARE ==
[2019-10-30] MEDS ORDERED: IPRATROPIUM-ALBUTEROL 3 ML NEB INHALATION STA ×2 (16:28→17:49)
[2019-10-30] MEDS ORDERED: SODIUM CHLORIDE 0.9% 1,000 ML IV STA (16:28)
[2019-10-30] MEDS ORDERED: methylPREDNISolone SOD SUCCI 125 MG/2 ML VIAL IV STA (16:28)
--- NOTE | 2019-10-30 16:33 | ED ---
SOB HPI - General Chief Complaint: Shortness of Breath Stated Complaint: COPD AND UTI Time Seen by Provider: 10/30/19 16:15 Source: patient, family, RN notes reviewed Mode of arrival: ambulatory Limitations: no limitations - History of Present Illness Initial Comments: This is a 74-year-old male with a history of COPD and frequent pneumonia episodes and who was diagnosed yesterday with a UTI but not place on antibiotics yet who is brought in by family members due to 2 days of progressively worsening shortness of breath refractory to home medication. He's had a cough with green phlegm but no overt fevers chills or sweats also no overt chest pain. No other modifying factors. Family members do state he gets pneumonia about this time every year. MD Complaint: shortness of breath, cough - Related Data Home Medications Medication Instructions Recorded Confirmed Metoprolol Succinate [Toprol XL] 50 mg PO HS 09/05/16 08/10/19 Levocetirizine Dihydrochloride 5 mg PO DAILY 11/23/18 08/10/19 [Xyzal] FLUoxetine HCL [PROzac] 30 mg PO HS 08/10/19 08/10/19 Loperamide HCl [Imodium A-D] 4 mg PO HS 08/10/19 08/10/19 ARIPiprazole [Abilify] 5 mg PO DAILY 08/11/19 08/11/19 Previous Rx's Medication Instructions Recorded Acetaminophen Tab [Tylenol] 650 mg PO Q6HR PRN tab 08/13/19 Amoxicillin/Potassium Clav 1 tab PO Q12HR #20 tab 08/13/19 [Augmentin 875-125 Tablet] Fluticasone Nasal [place] [Flonase 2 spray EA NOSTRIL DAILY spr 08/13/19 Nasal [place]] Ipratropium-Albuterol Nebulize 3 ml INHALATION RT-QID PRN 08/13/19 [Duoneb 0.5 mg-3 mg/3 ml Soln] ampul.neb Allergies Allergy/AdvReac Type Severity Reaction Status Date / Time No Known Allergies Allergy Verified 10/30/19 16:05 Review of Systems ROS Statement: Those systems with pertinent positive or pertinent negative responses have been documented in the HPI. ROS Other: All systems not noted in ROS Statement are negative. Past Medical History Past Medical History: Heart Failure, COPD, GERD/Reflux, Hypertension Additional Past Medical History / Comment(s): pt states sexual issue in the past would not go into deals History of Any Multi-Drug Resistant Organisms: None Reported Past Surgical History: Adenoidectomy Additional Past Surgical History / Comment(s): left wrist surgery 12 years ago, (Pt has AMS, denies adenoidectomy) Past Anesthesia/Blood Transfusion Reactions: No Reported Reaction Past Psychological History: Anxiety, Bipolar, Depression Smoking Status: Current every day smoker Past Alcohol Use History: Occasional Past Drug Use History: None Reported - Past Family History Mother Family Medical History: Cancer Father Family Medical History: Diabetes Mellitus General Exam - General Exam Comments Initial Comments: This is a well-developed well-nourished awake alert oriented 3 male Limitations: no limitations General appearance: alert, in no apparent distress Head exam: Present: atraumatic, normocephalic, normal inspection Eye exam: Present: normal appearance, PERRL, EOMI. Absent: scleral icterus, conjunctival injection, periorbital swelling ENT exam: Present: normal exam, mucous membranes moist Neck exam: Present: normal inspection, full ROM, other (Stridor JVD or bruits). Absent: tenderness, meningismus, lymphadenopathy Respiratory exam: Present: respiratory distress, wheezes, accessory muscle use (Diffuse wheezing with tachypnea), decreased breath sounds. Absent: rales, rhonchi, stridor Cardiovascular Exam: Present: regular rate, normal rhythm, normal heart sounds. Absent: systolic murmur, diastolic murmur, rubs, gallop, clicks GI/Abdominal exam: Present: soft, normal bowel sounds. Absent: distended, tenderness, guarding, rebound, rigid Extremities exam: Present: normal inspection, full ROM, normal capillary refill. Absent: tenderness, pedal edema, joint swelling, calf tenderness Back exam: Present: normal inspection Neurological exam: Present: alert, oriented X3, CN II-XII intact Psychiatric exam: Present: normal affect, normal mood Skin exam: Present: warm, dry, intact, normal color. Absent: rash Course Vital Signs 10/30/19 10/30/19 10/30/19 16:03 17:09 17:20 Temperature 97.8 F Pulse Rate 68 55 L 57 L Respiratory 26 H Rate Blood Pressure 155/92 O2 Sat by Pulse 93 L Oximetry - Reevaluation(s) Reevaluation #1: 10/30/19 17:50 Reevaluation patient reveals minimal improvement at this time he states he feels none better. Medical Decision Making - Medical Decision Making I did discuss Pfizer the patient and family members. Patient does demonstrate evidence of CHF as well as COPD exacerbation. Patient will be admitted the case is discussed with Dr. Mott. - Lab Data Result diagrams: 10/30/19 16:45 10/30/19 16:45 Lab Results 10/30/19 10/30/19 10/30/19 Range/Units 16:45 16:45 16:45 WBC 6.7 (3.8-10.6) k/uL RBC 4.83 (4.30-5.90) m/uL Hgb 15.0 (13.0-17.5) gm/dL Hct 44.7 (39.0-53.0) % MCV 92.4 (80.0-100.0) fL MCH 31.0 (25.0-35.0) pg MCHC 33.6 (31.0-37.0) g/dL RDW 13.5 (11.5-15.5) % Plt Count 223 (150-450) k/uL Neutrophils % 78 % Lymphocytes % 14 % Monocytes % 5 % Eosinophils % 1 % Basophils % 0 % Neutrophils # 5.2 (1.3-7.7) k/uL Lymphocytes # 0.9 L (1.0-4.8) k/uL Monocytes # 0.3 (0-1.0) k/uL Eosinophils # 0.1 (0-0.7) k/uL Basophils # 0.0 (0-0.2) k/uL PT (9.0-12.0) sec INR (<1.2) APTT (22.0-30.0) sec Sodium 139 (137-145) mmol/L Potassium 4.2 (3.5-5.1) mmol/L Chloride 103 (98-107) mmol/L Carbon Dioxide 29 (22-30) mmol/L Anion Gap 7 mmol/L BUN 11 (9-20) mg/dL Creatinine 0.72 (0.66-1.25) mg/dL Est GFR (CKD-EPI)AfAm >90 (>60 ml/min/1.73 sqM) Est GFR (CKD-EPI)NonAf >90 (>60 ml/min/1.73 sqM) Glucose 96 (74-99) mg/dL Calcium 8.8 (8.4-10.2) mg/dL Magnesium 1.9 (1.6-2.3) mg/dL Total Bilirubin 0.7 (0.2-1.3) mg/dL AST 18 (17-59) U/L ALT 25 (21-72) U/L Alkaline Phosphatase 61 (38-126) U/L Creatine Kinase 69 (55-170) U/L NT-Pro-B Natriuret Pep 2430 pg/mL Total Protein 6.3 (6.3-8.2) g/dL Albumin 3.5 (3.5-5.0) g/dL 10/30/19 Range/Units 16:45 WBC (3.8-10.6) k/uL RBC (4.30-5.90) m/uL Hgb (13.0-17.5) gm/dL Hct (39.0-53.0) % MCV (80.0-100.0) fL MCH (25.0-35.0) pg MCHC (31.0-37.0) g/dL RDW (11.5-15.5) % Plt Count (150-450) k/uL Neutrophils % % Lymphocytes % % Monocytes % % Eosinophils % % Basophils % % Neutrophils # (1.3-7.7) k/uL Lymphocytes # (1.0-4.8) k/uL Monocytes # (0-1.0) k/uL Eosinophils # (0-0.7) k/uL Basophils # (0-0.2) k/uL PT 10.9 (9.0-12.0) sec INR 1.0 (<1.2) APTT 27.0 (22.0-30.0) sec Sodium (137-145) mmol/L Potassium (3.5-5.1) mmol/L Chloride (98-107) mmol/L Carbon Dioxide (22-30) mmol/L Anion Gap mmol/L BUN (9-20) mg/dL Creatinine (0.66-1.25) mg/dL Est GFR (CKD-EPI)AfAm (>60 ml/min/1.73 sqM) Est GFR (CKD-EPI)NonAf (>60 ml/min/1.73 sqM) Glucose (74-99) mg/dL Calcium (8.4-10.2) mg/dL Magnesium (1.6-2.3) mg/dL Total Bilirubin (0.2-1.3) mg/dL AST (17-59) U/L ALT (21-72) U/L Alkaline Phosphatase (38-126) U/L Creatine Kinase (55-170) U/L NT-Pro-B Natriuret Pep pg/mL Total Protein (6.3-8.2) g/dL Albumin (3.5-5.0) g/dL - EKG Data -: EKG Interpreted by Me (Sinus bradycardia with occasional PVCs rate was 58. Interval 158 QRS 82 QT) EKG Comments: (Sinus bradycardia with occasional PVCs rate was 58. Interval 158 QRS 82 QT since QTC 450/[address] and figure aeration - Radiology Data Radiology results: report reviewed (I did review the imaging and report no definite evidence of a acute findings.), image reviewed Critical Care Time Critical Care Time: Yes Critical Care Time: 31 minutes of critical care time which includes initial presentation with history physical labs x-rays multiple reevaluation patient responsive therapy review of old charting discussed with the patient family regarding the findings discussed with the admitting physician admission orders and documentation of the above Disposition Clinical Impression: Congestive heart failure, Acute exacerbation of chronic obstructive pulmonary disease, Acute bronchitis Disposition: ADMITTED IP TO THIS [facility] Condition: Fair Referrals: Alvin Mott MD [Primary Care Provider] - 1-2 days
[2019-10-30 17:00] LABS: Basophils % (A) 0 %; Eosinophils # (A) 0.1 k/uL (0-0.7); Eosinophils % (A) 1 %; HCT 44.7 % (39.0-53.0); Lymphocytes # (A) 0.9 k/uL (1.0-4.8); Lymphocytes % (A) 14 %; MCHC 33.6 g/dL (31.0-37.0); MCV 92.4 fL (80.0-100.0); Mean Platelet Volume 6.6; Monocytes # (A) 0.3 k/uL (0-1.0); Monocytes % (A) 5 %; Neutrophils # (A) 5.2 k/uL (1.3-7.7); Neutrophils % (A) 78 %; Platelet Count 223 k/uL (150-450); RBC 4.83 m/uL (4.30-5.90); RDW 13.5 % (11.5-15.5); WBC 6.7 k/uL (3.8-10.6)
--- NOTE | 2019-10-30 17:05 | XR ---
EXAMINATION TYPE: XR chest 2V DATE OF EXAM: 10/30/2019 COMPARISON: 08/10/2019 HISTORY: Shortness of breath TECHNIQUE: Frontal and lateral views of the chest are obtained. FINDINGS: Scattered senescent parenchymal changes noted. Hyperinflation compatible with COPD. No evidence for infiltrate. No evidence for atelectasis. Heart size is stable. Mediastinal structures are stable and grossly unremarkable. No evidence for hilar prominence. Degenerative changes dorsal spine. IMPRESSION: 1. No evidence for acute pulmonary disease.
[2019-10-30 17:10] LABS: Prothrombin Time 10.9 sec (9.0-12.0)
[2019-10-30 17:13] LABS: ALT 25 U/L (21-72); AST 18 U/L (17-59); African American GFR (CKD) >90 (>60 ml/min/1.73 sqM); Albumin 3.5 g/dL (3.5-5.0); Alkaline Phosphatase 61 U/L (38-126); Anion Gap 7 mmol/L; Blood Urea Nitrogen 11 mg/dL (9-20); Calcium 8.8 mg/dL (8.4-10.2); Carbon Dioxide 29 mmol/L (22-30); Chloride 103 mmol/L (98-107); Creatine Kinase 69 U/L (55-170); Glucose 96 mg/dL (74-99); Magnesium 1.9 mg/dL (1.6-2.3); Non-African American GFR(CKD) >90 (>60 ml/min/1.73 sqM); Potassium 4.2 mmol/L (3.5-5.1); Sodium 139 mmol/L (137-145); Total Bilirubin 0.7 mg/dL (0.2-1.3); Total Protein 6.3 g/dL (6.3-8.2)
[2019-10-30] MEDS ORDERED: FUROSEMIDE 10 MG/ML 4 ML VIAL IV STA (17:37)
[2019-10-30] MEDS ORDERED: ACETAMINOPHEN TAB 325 MG TAB PO PRN (18:03)
[2019-10-30 19:06] LABS: Appearance,Urine Clear (Clear); Bilirubin,Urine Negative (Negative); Blood,Urine Negative (Negative); Color,Urine Yellow; Glucose,Urine (UA) Negative (Negative); Hyaline Casts,Urine 1 /lpf (0-2); Ketones,Urine Negative (Negative); Leukocyte Esterase,Urine Large (Negative); Mucus,Urine Rare /hpf; Nitrite,Urine Positive (Negative); PH, Urine 6.5 (5.0-8.0); Protein,Urine Negative (Negative); RBC,Urine 5 /hpf (0-5); Urobilinogen,Urine <2.0 mg/dL (<2.0)
[2019-10-30] MEDS: IPRATROPIUM-ALBUTEROL 3 ML NEB INHALATION SCH (20:04)
[2019-10-30] MEDS: SODIUM CHLORIDE 0.9% 1,000 ML IV SCH (20:51)
[2019-10-30] MEDS: FLUoxetine HCL 20 MG CAP PO SCH (20:54)
[2019-10-30] MEDS: LOPERAMIDE 2 MG CAP PO SCH (20:54)
[2019-10-30] MEDS ORDERED: FLUoxetine HCL 10 MG CAP PO SCH (21:00)
[2019-10-30] MEDS ORDERED: AMOXIC-POT CLAV 875-125MG 1 EACH TAB PO SCH (21:00)
[2019-10-30] MEDS ORDERED: METOPROLOL SUCCINATE (ER) 50 MG TAB.ER.24H PO SCH (21:00)
[2019-10-30 21:01] LABS: Glucose,Whole Blood 159 mg/dL (75-99)
[2019-10-30] MEDS: methylPREDNISolone SOD SUCCI 125 MG/2 ML VIAL IV SCH (22:42)
[2019-10-31] MEDS: IPRATROPIUM-ALBUTEROL 3 ML NEB INHALATION SCH ×7 (00:08→23:57)
[2019-10-31 00:15] LABS: African American GFR (CKD) >90 (>60 ml/min/1.73 sqM); Anion Gap 8 mmol/L; Blood Urea Nitrogen 16 mg/dL (9-20); Calcium 9.1 mg/dL (8.4-10.2); Carbon Dioxide 30 mmol/L (22-30); Chloride 100 mmol/L (98-107); Glucose 202 mg/dL (74-99); Magnesium 1.9 mg/dL (1.6-2.3); Non-African American GFR(CKD) 88 (>60 ml/min/1.73 sqM); Potassium 3.9 mmol/L (3.5-5.1); Sodium 138 mmol/L (137-145)
[2019-10-31] MEDS: FUROSEMIDE 10 MG/ML 4 ML VIAL IV SCH ×2 (05:35→17:41)
[2019-10-31] MEDS: methylPREDNISolone SOD SUCCI 125 MG/2 ML VIAL IV SCH ×4 (05:35→23:08)
[2019-10-31 06:28] LABS: Glucose,Whole Blood 158 mg/dL (75-99)
[2019-10-31] MEDS: INSULIN ASPART (NovoLOG) 100 UNIT/ML VIAL SQ SCH ×4 (06:37→22:36)
[2019-10-31] MEDS ORDERED: ASPIRIN 325 MG TAB PO SCH (09:00)
[2019-10-31] MEDS: LORATADINE 10 MG TAB PO SCH (09:37)
[2019-10-31] MEDS: ARIPiprazole 5 MG TAB PO SCH (09:38)
[2019-10-31] MEDS: FLUTICASONE 50MCG/SPRAY NASAL 16GM EA NOSTRIL SCH (09:38)
--- NOTE | 2019-10-31 09:42 | P.CRDCN ---
History of Present Illness Consult date: 10/31/19 Requesting physician: Alvin Mott Consult reason: congestive heart failure Chief complaint: Shortness of breath History of present illness: This is a 74 year old gentleman with documented history of hypertension, COPD, GERD, bipolar depression, nicotine dependence, who presents to the hospital with symptoms of 2-3 day aggressively worsening shortness of breath. Patient also states he has a productive cough of green sputum and states that nighttime that he coughs a lot. He denies any overt PND or orthopnea. Chest x-ray does not reveal any evidence for acute pulmonary disease. EKG on presentation here showed a sinus bradycardia with occasional PVC, nonspecific ST-T wave changes. Blood pressure 132/80 with a heart rate in the 60s, 95% on 3 L of oxygen. White blood cell count 6.7, hemoglobin 15, platelet count 223. Sodium 138, potassium 3.9, BUN 16, creatinine 0.7. Tr oponins are negative 3, magnesium level I.9, BNP level 2430. At the time of my examination this morning, patient does state that his breathing has improved somewhat from admission here. He is currently on IV Lasix as well as IV steroids. Urinalysis shows a positive UTI. Apparently the patient was told prior to admission that he had a UTI, and has not yet been initiated on antibiotics for this. Past Medical History Past Medical History: Heart Failure, COPD, GERD/Reflux, Hypertension Additional Past Medical History / Comment(s): pt states sexual issue in the past would not go into deals History of Any Multi-Drug Resistant Organisms: None Reported Past Surgical History: Adenoidectomy Additional Past Surgical History / Comment(s): left wrist surgery 12 years ago, (Pt has AMS, denies adenoidectomy) Past Anesthesia/Blood Transfusion Reactions: No Reported Reaction Past Psychological History: Anxiety, Bipolar, Depression Additional Psychological History / Comment(s): Patient caregiver states that symptoms have been worse since incarceration in June, previous suicide attempt by cutting left wrist "years ago", per patient. Smoking Status: Current every day smoker Past Alcohol Use History: Occasional Additional Past Alcohol Use History / Comment(s): pt states he used to drink daily but quit 6 months ago Past Drug Use History: None Reported - Past Family History Mother Family Medical History: Cancer Father Family Medical History: Diabetes Mellitus Medications and Allergies Home Medications Medication Instructions Recorded Confirmed Type Metoprolol Succinate [Toprol XL] 50 mg PO HS 09/05/16 10/30/19 History Levocetirizine Dihydrochloride 5 mg PO DAILY 11/23/18 10/30/19 History [Xyzal] FLUoxetine HCL [PROzac] 20 mg PO HS 08/10/19 10/30/19 History Loperamide HCl [Imodium A-D] 4 mg PO HS 08/10/19 10/30/19 History ARIPiprazole [Abilify] 5 mg PO DAILY 08/11/19 10/30/19 History Fluticasone Nasal [place] [Flonase 2 spray EA NOSTRIL DAILY spr 08/13/19 10/30/19 Rx Nasal [place]] Albuterol Inhaler [Ventolin Hfa 1 - 2 puff INHALATION RT-Q6H PRN 10/30/19 10/30/19 History Inhaler] Albuterol Nebulized [Ventolin 2.5 mg INHALATION RT-QID 10/30/19 10/30/19 History Nebulized] Artificial Tears-Hypromellose 1 drop BOTH EYES TID PRN 10/30/19 10/30/19 History [Artificial Tear Drops] Tiotropium [place] [Spiriva 1 puff INHALATION RT-DAILY 10/30/19 10/30/19 History Respimat] Allergies Allergy/AdvReac Type Severity Reaction Status Date / Time No Known Allergies Allergy Verified 10/30/19 16:05 Physical Exam Vitals: Vital Signs Temp Pulse Pulse Resp BP BP Pulse Ox 10/31/19 07:19 68 10/31/19 07:08 67 10/31/19 04:00 97.9 F 67 18 132/83 95 10/31/19 03:20 64 10/31/19 03:05 64 10/31/19 00:20 72 10/31/19 00:11 94 L 10/31/19 00:09 72 10/30/19 23:34 68 18 10/30/19 23:33 97.7 F 68 18 138/80 94 L 10/30/19 20:59 94 L 10/30/19 20:39 98.0 F 74 20 136/72 91 L 10/30/19 20:15 74 20 10/30/19 20:00 98.0 F 56 L 22 162/86 95 10/30/19 18:34 56 L 10/30/19 18:24 56 L 10/30/19 18:00 55 L 20 149/90 95 10/30/19 17:20 57 L 10/30/19 17:09 55 L 10/30/19 16:03 97.8 F 68 26 H 155/92 93 L Intake and Output 10/30/19 10/31/19 10/31/19 22:59 06:59 14:59 Intake Total 240 Output Total 300 1100 Balance -300 -1100 240 Intake: Oral 240 Output: Urine 300 1100 Uretheral (Chance) 300 Other: Voiding Method Indwelling Catheter Indwelling Catheter Weight 110.223 kg 113.4 kg PHYSICAL EXAMINATION: GENERAL: 74-year-old gentleman in no acute distress at the time of my examination HEENT: Head is atraumatic, normocephalic. Pupils equal, round. Sclera anicteric. Conjunctiva are clear. Mucous membranes of the mouth are moist. Nec k is supple. There is elevated jugular venous pressure. No carotid bruit is heard. HEART EXAMINATION: Heart S1, S2 normal. No murmur or gallop heard. CHEST EXAMINATION: Lungs reveal diminished air entry to the bases with coarse crackles heard and fine wheezing heard. ABDOMEN: Soft, obese, nontender. Bowel sounds are heard. No organomegaly noted. EXTREMITIES: 2+ peripheral pulses with no evidence of peripheral edema and no calf tenderness noted. NEUROLOGIC patient is awake, alert and oriented 2 . Results 10/30/19 16:45 10/30/19 23:54 Cardiac Enzymes 10/30/19 10/30/19 10/30/19 Range/Units 16:45 16:45 22:23 AST 18 (17-59) U/L Troponin I <0.012 <0.012 (0.000-0.034) ng/mL 10/31/19 Range/Units 05:29 AST (17-59) U/L Troponin I <0.012 (0.000-0.034) ng/mL Coagulation 10/30/19 Range/Units 16:45 PT 10.9 (9.0-12.0) sec APTT 27.0 (22.0-30.0) sec CBC 10/30/19 Range/Units 16:45 WBC 6.7 (3.8-10.6) k/uL RBC 4.83 (4.30-5.90) m/uL Hgb 15.0 (13.0-17.5) gm/dL Hct 44.7 (39.0-53.0) % Plt Count 223 (150-450) k/uL Comprehensive Metabolic Panel 10/30/19 10/30/19 Range/Units 16:45 23:54 Sodium 139 138 (137-145) mmol/L Potassium 4.2 3.9 (3.5-5.1) mmol/L Chloride 103 100 (98-107) mmol/L Carbon Dioxide 29 30 (22-30) mmol/L BUN 11 16 (9-20) mg/dL Creatinine 0.72 0.79 (0.66-1.25) mg/dL Glucose 96 202 H (74-99) mg/dL Calcium 8.8 9.1 (8.4-10.2) mg/dL AST 18 (17-59) U/L ALT 25 (21-72) U/L Alkaline Phosphatase 61 (38-126) U/L Total Protein 6.3 (6.3-8.2) g/dL Albumin 3.5 (3.5-5.0) g/dL Current Medications Generic Name Dose Route Start Last Admin Trade Name Freq PRN Reason Stop Dose Admin Acetaminophen 650 mg 10/30/19 18:03 Tylenol Tab PO Q6HR PRN Mild Pain or Fever > 100.5 Albuterol/Ipratropium 3 ml 10/30/19 20:00 10/31/19 07:07 Duoneb 0.5 Mg-3 Mg/3 Ml Soln INHALATION 3 ml RT-Q4H ALIREZA Administration Aripiprazole 5 mg 10/31/19 09:00 Abilify PO DAILY ALIREZA Aspirin 325 mg 10/31/19 09:00 Aspirin PO DAILY ALIREZA Fluoxetine HCl 20 mg 10/30/19 21:00 10/30/19 20:54 Prozac PO 20 mg HS ALIREZA Administration Fluticasone Propionate 2 spray 10/31/19 09:00 Flonase Nasal [place] EA NOSTRIL DAILY ALIREZA Furosemide 40 mg 10/31/19 06:00 10/31/19 05:35 Lasix IV 40 mg Q12H ALIREZA Administration Sodium Chloride 1,000 mls @ 20 mls/hr 10/30/19 18:00 10/30/19 20:51 Saline 0.9% IV Not Given .Q24H ALIREZA Insulin Aspart 0 unit 10/31/19 07:30 10/31/19 06:37 Novolog SQ 3 unit ACHS ALIREZA Administration Protocol Loperamide HCl 4 mg 10/30/19 21:00 10/30/19 20:54 Imodium PO 4 mg HS ALIREZA Administration Loratadine 10 mg 10/31/19 09:00 Claritin PO DAILY ALIREZA Methylprednisolone Sodium Succinate 60 mg 10/31/19 00:00 10/31/19 05:35 Solu-Medrol IV 60 mg Q6HR ALIREZA Administration Metoprolol Succinate 50 mg 10/30/19 21:00 10/30/19 20:54 Toprol Xl PO 50 mg HS ALIREZA Administration Intake and Output 10/30/19 10/31/19 10/31/19 22:59 06:59 14:59 Intake Total 240 Output Total 300 1100 Balance -300 -1100 240 Intake: Oral 240 Output: Urine 300 1100 Uretheral (Chance) 300 Other: Voiding Method Indwelling Catheter Indwelling Catheter Weight 110.223 kg 113.4 kg 10/30/19 16:45 10/30/19 23:54 EKG Interpretations (text) EKG shows a sinus bradycardia with occasional PVC Assessment and Plan Plan: Assessment and plan #1 symptoms of progressively worsening shortness of breath or cough of green sputum. Likely combination of congestive cardiac failure and possible trach eobronchitis #2 UTI #3 sinus bradycardia, heart rate in the 60s this morning. #4 hypertension #5 nicotine dependence #6 COPD #7 anxiety, depression, bipolar Plan We will obtain an echocardiogram with Doppler study, continue IV Lasix. Continue to monitor intake and output along with daily weights and daily lytes BUN and creatinine. Decrease aspirin to 81 mg daily. We will decrease the dose of Toprol to 25 mg daily, add losartan to the patient's medication regime. Check a TSH level. Further recommendations to follow. DNP note has been reviewed, I agree with a documented findings and plan of care. Patient was seen and examined.
--- NOTE | 2019-10-31 11:25 | P.HPIM ---
History of Present Illness 74-year-old male was brought to emergency room with complaints of increasing shortness of breath states this is been going on for about 3 days. Patient's been having difficulty with chronic urinary tract infection last culture showed Citrobacter freundii sensitive to the ceftriaxone. Patient has history of bipolar smoking GERD and hypertension last echo showed ejection fraction of 55- 60% Review of Systems Constitutional: Reports fatigue, Reports weakness Respiratory: Reports cough, Reports dyspnea Past Medical History Past Medical History: Heart Failure, COPD, GERD/Reflux, Hypertension Additional Past Medical History / Comment(s): pt states sexual issue in the past would not go into deals History of Any Multi-Drug Resistant Organisms: None Reported Past Surgical History: Adenoidectomy Additional Past Surgical History / Comment(s): left wrist surgery 12 years ago, (Pt has AMS, denies adenoidectomy) Past Anesthesia/Blood Transfusion Reactions: No Reported Reaction Past Psychological History: Anxiety, Bipolar, Depression Additional Psychological History / Comment(s): Patient caregiver states that symptoms have been worse since incarceration in June, previous suicide attempt by cutting left wrist "years ago", per patient. Smoking Status: Current every day smoker Past Alcohol Use History: Occasional Additional Past Alcohol Use History / Comment(s): pt states he used to drink daily but quit 6 months ago Past Drug Use History: None Reported - Past Family History Mother Family Medical History: Cancer Father Family Medical History: Diabetes Mellitus Medications and Allergies Home Medications Medication Instructions Recorded Confirmed Type Metoprolol Succinate [Toprol XL] 50 mg PO HS 09/05/16 10/30/19 History Levocetirizine Dihydrochloride 5 mg PO DAILY 11/23/18 10/30/19 History [Xyzal] FLUoxetine HCL [PROzac] 20 mg PO HS 08/10/19 10/30/19 History Loperamide HCl [Imodium A-D] 4 mg PO HS 08/10/19 10/30/19 History ARIPiprazole [Abilify] 5 mg PO DAILY 08/11/19 10/30/19 History Fluticasone Nasal Sayre [Flonase 2 spray EA NOSTRIL DAILY spr 08/13/19 10/30/19 Rx Nasal Sayre] Albuterol Inhaler [Ventolin Hfa 1 - 2 puff INHALATION RT-Q6H PRN 10/30/19 10/30/19 History Inhaler] Albuterol Nebulized [Ventolin 2.5 mg INHALATION RT-QID 10/30/19 10/30/19 History Nebulized] Artificial Tears-Hypromellose 1 drop BOTH EYES TID PRN 10/30/19 10/30/19 History [Artificial Tear Drops] Tiotropium Niss[place] [Spiriva 1 puff INHALATION RT-DAILY 10/30/19 10/30/19 History Respimat] Allergies Allergy/AdvReac Type Severity Reaction Status Date / Time No Known Allergies Allergy Verified 10/30/19 16:05 Physical Exam Vitals: Vital Signs Temp Pulse Pulse Resp BP BP Pulse Ox 10/31/19 10:59 72 10/31/19 10:52 70 10/31/19 07:19 68 10/31/19 07:08 67 10/31/19 04:00 97.9 F 67 18 132/83 95 10/31/19 03:20 64 10/31/19 03:05 64 10/31/19 00:20 72 10/31/19 00:11 94 L 10/31/19 00:09 72 10/30/19 23:34 68 18 10/30/19 23:33 97.7 F 68 18 138/80 94 L 10/30/19 20:59 94 L 10/30/19 20:39 98.0 F 74 20 136/72 91 L 10/30/19 20:15 74 20 10/30/19 20:00 98.0 F 56 L 22 162/86 95 10/30/19 18:34 56 L 10/30/19 18:24 56 L 10/30/19 18:00 55 L 20 149/90 95 10/30/19 17:20 57 L 10/30/19 17:09 55 L 10/30/19 16:03 97.8 F 68 26 H 155/92 93 L Intake and Output 10/30/19 10/31/19 10/31/19 22:59 06:59 14:59 Intake Total 240 Output Total 300 1100 Balance -300 -1100 240 Intake: Oral 240 Output: Urine 300 1100 Uretheral (Chance) 300 Other: Voiding Method Indwelling Catheter Indwelling Catheter Weight 110.223 kg 113.4 kg - Constitutional General appearance: mild distress - EENT Eyes: PERRLA Ears: bilateral: normal - Neck Neck: normal ROM - Respiratory Respiratory: bilateral: diminished - Cardiovascular Rhythm: regular - Gastrointestinal General gastrointestinal: soft - Integumentary Integumentary: normal - Neurologic Neurologic: CNII-XII intact - Musculoskeletal Musculoskeletal: generalized weakness - Psychiatric Slowness respond to questions with speech Psychiatric: A&O x's 3 Results CBC & Chem 7: 10/30/19 16:45 10/30/19 23:54 Labs: Abnormal Lab Results - Last 24 Hours (Table) 10/30/19 10/30/19 10/30/19 Range/Units 16:45 18:50 21:00 Lymphocytes # 0.9 L (1.0-4.8) k/uL Glucose (74-99) mg/dL POC Glucose (mg/dL) 159 H (75-99) mg/dL Ur Leukocyte Esterase Large H (Negative) Urine WBC 50 H (0-5) /hpf Urine Mucus Rare H (None) /hpf 10/30/19 10/31/19 Range/Units 23:54 06:09 Lymphocytes # (1.0-4.8) k/uL Glucose 202 H (74-99) mg/dL POC Glucose (mg/dL) 158 H (75-99) mg/dL Ur Leukocyte Esterase (Negative) Urine WBC (0-5) /hpf Urine Mucus (None) /hpf Microbiology - Last 24 Hours (Table) 10/30/19 18:50 Urine Culture - Preliminary Urine,Clean Catch Chest x-ray: report reviewed Thrombosis Risk Factor Assmnt - Choose All That Apply Any of the Below Risk Factors Present?: Yes Each Factor Represents 1 point: Abnormal pulmonary function (COPD) Other Risk Factors: Yes Each Risk Factor Represents 3 Points: Age 75 years or older Other congenital or acquired thrombophilia - If yes, enter type in comment: No Thrombosis Risk Factor Assessment Total Risk Factor Score: 4 Thrombosis Risk Factor Assessment Level: Moderate Risk Assessment and Plan Plan: Assessment Acute exacerbation of COPD Acute bronchitis Evaluation for congestive heart failure last EF was 55-60% Urinary tract infection Rocephin started Bipolar Nicotine use GERD Hypertension Plan Cardiology evaluation
[2019-10-31 12:05] LABS: Glucose,Whole Blood 190 mg/dL (75-99)
[2019-10-31] MEDS: LOSARTAN 25 MG TAB PO SCH ×2 (12:06→22:35)
[2019-10-31 12:08] VITALS: BMI 33.0
[2019-10-31 17:08] LABS: Glucose,Whole Blood 197 mg/dL (75-99)
[2019-10-31] MEDS: SODIUM CHLORIDE 0.9% 1,000 ML IV SCH (19:17)
[2019-10-31 20:18] LABS: Glucose,Whole Blood 181 mg/dL (75-99)
[2019-10-31] MEDS: METOPROLOL SUCCINATE (ER) 25 MG TAB.ER.24H PO SCH (22:35)
[2019-10-31] MEDS: FLUoxetine HCL 20 MG CAP PO SCH (22:35)
[2019-10-31] MEDS: LOPERAMIDE 2 MG CAP PO SCH (22:35)
[2019-11-01] MEDS: IPRATROPIUM-ALBUTEROL 3 ML NEB INHALATION SCH ×5 (04:18→21:00)
[2019-11-01 06:30] LABS: Glucose,Whole Blood 182 mg/dL (75-99)
[2019-11-01 06:50] LABS: Calcium 9.5 mg/dL (8.4-10.2); Potassium 4.3 mmol/L (3.5-5.1)
[2019-11-01] MEDS: INSULIN ASPART (NovoLOG) 100 UNIT/ML VIAL SQ SCH ×4 (07:30→20:31)
[2019-11-01] MEDS: FUROSEMIDE 10 MG/ML 4 ML VIAL IV SCH (07:30)
[2019-11-01] MEDS: methylPREDNISolone SOD SUCCI 125 MG/2 ML VIAL IV SCH ×4 (07:30→23:04)
--- NOTE | 2019-11-01 08:43 | ECHOF ---
Referral Reason:chf MEASUREMENTS -------- HEIGHT: 182.9 cm WEIGHT: 113.4 kg BP: 132/83 RVIDd: 3.0 cm (< 3.3) IVSd: 1.5 cm (0.6 - 1.1) LVIDd: 4.3 cm (3.9 - 5.3) LVPWd: 1.4 cm (0.6 - 1.1) IVSs: 1.9 cm LVIDs: 2.6 cm LVPWs: 2.1 cm Ao Diam: 2.8 cm (2.0 - 3.7) AV Cusp: 2.2 cm (1.5 - 2.6) LA Diam: 5.1 cm (2.7 - 3.8) MV EXCURSION: 19.371 mm (> 18.000) MV EF SLOPE: 74 mm/s (70 - 150) EPSS: 0.4 cm MV E Chris: 0.97 m/s MV DecT: 212 ms MV A Chris: 0.90 m/s MV E/A Ratio: 1.08 RAP: 5.00 mmHg RVSP: 45.48 mmHg FINDINGS -------- Sinus rhythm. This was a technically adequate study. Morbid Obesity The left ventricular size is normal. There is moderate concentric left ventricular hypertrophy. O verall left ventricular systolic function is normal with, an EF between 55 - 60 %. The right ventricle is normal in size. The left atrium is markedly dilated. The right atrial size is normal. There is mild aortic valve sclerosis. There is no evidence of aortic regurgitation. Mild mitral annular calcification present. Mild mitral regurgitation is present. Mild tricuspid regurgitation present. There is moderate pulmonary hypertension. The right ventric ular systolic pressure, as measured by Doppler, is 45.48mmHg. There is no pulmonic regurgitation present. The aortic root size is normal. There is no pericardial effusion. CONCLUSIONS -------- 1. Sinus rhythm. 2. This was a technically adequate study. 3. Morbid Obesity 4. The left ventricular size is normal. 5. There is moderate concentric left ventricular hypertrophy. 6. Overall left ventricular systolic function is normal with, an EF between 55 - 60 %. 7. The right ventricle is normal in size. 8. The left atrium is markedly dilated. 9. The right atrial size is normal. 10. There is mild aortic valve sclerosis. 11. Mild mitral annular calcification present. 12. Mild mitral regurgitation is present. 13. Mild tricuspid regurgitation present. 14. There is moderate pulmonary hypertension. 15. The right ventricular systolic pressure, as measured by Doppler, is 45.48mmHg. 16. There is no pulmonic regurgitation present. 17. The aortic root size is normal. 18. There is no pericardial effusion. FREIGHT ELEVATOR ERECTOR: Luiza Hayes RDCS
[2019-11-01] MEDS: LOSARTAN 25 MG TAB PO SCH ×2 (10:20→20:31)
[2019-11-01] MEDS: ARIPiprazole 5 MG TAB PO SCH (10:20)
[2019-11-01] MEDS: LORATADINE 10 MG TAB PO SCH (10:20)
[2019-11-01] MEDS: ASPIRIN 81 MG PO SCH (10:20)
[2019-11-01] MEDS: FLUTICASONE 50MCG/SPRAY NASAL 16GM EA NOSTRIL SCH (10:21)
--- NOTE | 2019-11-01 11:11 | P.PN ---
Subjective Progress Note Date: 11/01/19 This is a 74 year old gentleman with documented history of hypertension, COPD, GERD, bipolar depression, nicotine dependence, who presents to the hospital with symptoms of 2-3 day aggressively worsening shortness of breath. Patient also states he has a productive cough of green sputum and state s that nighttime that he coughs a lot. He denies any overt PND or orthopnea. Chest x-ray does not reveal any evidence for acute pulmonary disease. EKG on presentation here showed a sinus bradycardia with occasional PVC, nonspecific ST-T wave changes. Blood pressure 132/80 with a heart rate in the 60s, 95% on 3 L of oxygen. White blood cell count 6.7, hemoglobin 15, platelet count 223. Sodium 138, potassium 3.9, BUN 16, creatinine 0.7. Troponins are negative 3, magnesium level I.9, BNP level 2430. At the time of my examination this morning, patient does state that his breathing has improved somewhat from admission here. He is currently on IV Lasix as well as IV steroids. Urinalysis shows a positive UTI. Apparently the patient was told prior to admission that he had a UTI, and has not yet been initiated on antibiotics for this. 12 16,019 Patient seen and examined this morning, continues to feel short of breath, continues to cough up green sputum. Has mild wheezing today with decreased air exchange. Echocardiogram with Doppler study was performed, revealed an ejection fraction of 55-60%. Blood pressure 120/60 with a heart rate in the 80s, 93% on 3 L of oxygen. Sodium 140, potassium 4.3, BUN 35, creatinine 1.1. Objective - Vital Signs Vital signs: Vital Signs Temp 98.1 F 11/01/19 04:00 Pulse 72 11/01/19 08:19 Resp 19 11/01/19 04:00 BP 120/66 11/01/19 04:00 Pulse Ox 95 11/01/19 08:10 Intake & Output 10/31/19 11/01/19 11/01/19 18:59 06:59 18:59 Intake Total 720 Output Total 900 950 Balance -180 -950 Weight 113.4 kg 113.5 kg Intake: Oral 720 Output: Urine 900 950 Other: Voiding Method Indwelling Catheter Indwelling Catheter - Exam PHYSICAL EXAMINATION: GENERAL: 74-year-old gentleman in no acute distress at the time of my examination HEENT: Head is atraumatic, normocephalic. Pupils equal, round. Sclera anicteric. Conjunctiva are clear. Mucous membranes of the mouth are moist. Neck is supple. There is elevated jugular venous pressure. No carotid bruit is heard. HEART EXAMINATION: Heart S1, S2 normal. No murmur or gallop heard. CHEST EXAMINATION: Lungs reveal decreased air exchange and fine scattered wheezing ABDOMEN: Soft, obese, nontender. Bowel sounds are heard. No organomegaly noted. EXTREMITIES: 2+ peripheral pulses with no evidence of peripheral edema and no calf tenderness noted. NEUROLOGIC patient is awake, alert and oriented 2 - Labs CBC & Chem 7: 10/30/19 16:45 11/01/19 06:16 Labs: Abnormal Lab Results - Last 24 Hours (Table) 10/30/19 10/31/19 10/31/19 Range/Units 23:54 11:52 17:03 Carbon Dioxide (22-30) mmol/L BUN (9-20) mg/dL Glucose (74-99) mg/dL POC Glucose (mg/dL) 190 H 197 H (75-99) mg/dL TSH 0.139 L (0.465-4.680) mIU/L 10/31/19 11/01/19 11/01/19 Range/Units 20:16 06:16 06:27 Carbon Dioxide 32 H (22-30) mmol/L BUN 35 H (9-20) mg/dL Glucose 191 H (74-99) mg/dL POC Glucose (mg/dL) 181 H 182 H (75-99) mg/dL TSH (0.465-4.680) mIU/L Microbiology - Last 24 Hours (Table) 10/30/19 18:50 Urine Culture - Final Urine,Clean Catch 10/30/19 16:45 Blood Culture - Preliminary Blood No Growth after 24 hours Assessment and Plan Plan: Assessment and plan #1 symptoms of progressively worsening shortness of breath or cough of green sputum. Likely combination of congestive cardiac failure and possible tracheobronchitis #2 UTI #3 sinus bradycardia, heart rate in the 60s this morning. #4 hypertension #5 nicotine dependence #6 COPD #7 anxiety, depression, bipolar Plan Echocardiogram with Doppler study was performed which revealed an ejection fraction of 55-60%. Moderate pulmonary hypertension. We will discontinue the IV Lasix today, we also recommend patient to have an incentive spirometry. DNP note has been reviewed, I agree with a documented findings and plan of care. Patient was seen and examined.
[2019-11-01 12:26] LABS: Glucose,Whole Blood 198 mg/dL (75-99)
[2019-11-01] MEDS: FUROSEMIDE 40 MG TAB PO SCH (16:41)
[2019-11-01 16:58] LABS: Glucose,Whole Blood 196 mg/dL (75-99)
[2019-11-01] MEDS: SODIUM CHLORIDE 0.9% 1,000 ML IV SCH (17:48)
[2019-11-01 20:22] LABS: Glucose,Whole Blood 216 mg/dL (75-99)
[2019-11-01] MEDS: METOPROLOL SUCCINATE (ER) 25 MG TAB.ER.24H PO SCH (20:31)
[2019-11-01] MEDS: LOPERAMIDE 2 MG CAP PO SCH (20:31)
[2019-11-01] MEDS: FLUoxetine HCL 20 MG CAP PO SCH (20:31)
[2019-11-02] MEDS: IPRATROPIUM-ALBUTEROL 3 ML NEB INHALATION SCH ×6 (01:08→20:01)
[2019-11-02 06:23] LABS: Glucose,Whole Blood 179 mg/dL (75-99)
[2019-11-02] MEDS: methylPREDNISolone SOD SUCCI 125 MG/2 ML VIAL IV SCH ×4 (06:26→23:08)
[2019-11-02] MEDS: INSULIN ASPART (NovoLOG) 100 UNIT/ML VIAL SQ SCH ×4 (06:27→21:27)
[2019-11-02] MEDS: ARIPiprazole 5 MG TAB PO SCH (08:30)
[2019-11-02] MEDS: ASPIRIN 81 MG PO SCH (08:30)
[2019-11-02] MEDS: FUROSEMIDE 40 MG TAB PO SCH ×2 (08:30→15:14)
[2019-11-02] MEDS: LOSARTAN 25 MG TAB PO SCH ×2 (08:30→19:48)
[2019-11-02] MEDS: LORATADINE 10 MG TAB PO SCH (08:30)
[2019-11-02] MEDS: FLUTICASONE 50MCG/SPRAY NASAL 16GM EA NOSTRIL SCH (08:34)
[2019-11-02 11:51] LABS: Glucose,Whole Blood 231 mg/dL (75-99)
--- NOTE | 2019-11-02 13:53 | PN ---
PROGRESS NOTE Mr. Garcia is known to have hypertension, GERD, bipolar depression, the patient was admitted with worsening shortness of breath and is being treated for acute bronchitis and mild congestive heart failure. The patient is doing fairly well. He has not being having any orthopnea or PND. No fever or chills are noted. Patient is not in any respiratory distress. PHYSICAL EXAMINATION: At present reveals a 74-year-old gentleman. He is afebrile. Blood pressure is 132/75 mmHg. First and second heart sounds are normal. Lungs are fairly clear to auscultation and percussion. Abdomen is negative. Extremities: Peripheral pulses, there is no evidence of any significant leg edema. The patient is feeling better. Continue the current medications. We will now follow the patient p.r.n. MMELADIO / TAMMYN: [id number] /
[2019-11-02 17:01] LABS: Glucose,Whole Blood 161 mg/dL (75-99)
[2019-11-02] MEDS: SODIUM CHLORIDE 0.9% 1,000 ML IV SCH (17:30)
--- NOTE | 2019-11-02 17:36 | XR ---
EXAMINATION TYPE: XR chest 2V DATE OF EXAM: 11/02/2019 COMPARISON: 10/30/2019 TECHNIQUE: PA and lateral views submitted. HISTORY: Shortness of breath FINDINGS: Subsegmental consolidation left retrocardiac region. Heart is prominent. Degenerative and hypertroph ic changes of the vertebral column. Underlying COPD noted. Biapical pleural thickening. Slightly prom inent interstitium. IMPRESSION: 1. Cardiomegaly with findings suggestive of chronic appearing interstitial changes most likely in the basis of chronic pulmonary fibrosis. 2. Subsegmental changes left retrocardiac region correlate for atelectasis versus infiltrate..
[2019-11-02 18:30] LABS: Calcium 9.2 mg/dL (8.4-10.2); Magnesium 2.1 mg/dL (1.6-2.3); Potassium 4.2 mmol/L (3.5-5.1)
[2019-11-02] MEDS: FLUoxetine HCL 20 MG CAP PO SCH (19:48)
[2019-11-02] MEDS: LOPERAMIDE 2 MG CAP PO SCH (19:48)
[2019-11-02] MEDS: METOPROLOL SUCCINATE (ER) 25 MG TAB.ER.24H PO SCH (19:48)
[2019-11-02 20:40] LABS: Glucose,Whole Blood 171 mg/dL (75-99)
[2019-11-03] MEDS: IPRATROPIUM-ALBUTEROL 3 ML NEB INHALATION SCH ×7 (00:03→20:44)
[2019-11-03 06:16] LABS: Glucose,Whole Blood 169 mg/dL (75-99)
[2019-11-03] MEDS: INSULIN ASPART (NovoLOG) 100 UNIT/ML VIAL SQ SCH ×4 (06:18→20:56)
[2019-11-03] MEDS: methylPREDNISolone SOD SUCCI 125 MG/2 ML VIAL IV SCH ×4 (06:18→23:05)
[2019-11-03 06:41] LABS: Basophils % (A) 0 %; Eosinophils # (A) 0.1 k/uL (0-0.7); Eosinophils % (A) 0 %; HCT 46.8 % (39.0-53.0); HGB 15.5 gm/dL (13.0-17.5); Lymphocytes # (A) 0.5 k/uL (1.0-4.8); Lymphocytes % (A) 4 %; MCH 31.2 pg (25.0-35.0); MCHC 33.1 g/dL (31.0-37.0); MCV 94.2 fL (80.0-100.0); Mean Platelet Volume 7.5; Monocytes # (A) 0.5 k/uL (0-1.0); Monocytes % (A) 3 %; Neutrophils # (A) 14.2 k/uL (1.3-7.7); Neutrophils % (A) 93 %; Platelet Count 240 k/uL (150-450); RBC 4.97 m/uL (4.30-5.90); RDW 13.6 % (11.5-15.5); WBC 15.3 k/uL (3.8-10.6)
[2019-11-03 06:50] LABS: Magnesium 2.2 mg/dL (1.6-2.3); Potassium 4.4 mmol/L (3.5-5.1)
[2019-11-03] MEDS: LORATADINE 10 MG TAB PO SCH (08:44)
[2019-11-03] MEDS: LOSARTAN 25 MG TAB PO SCH ×2 (08:44→20:45)
[2019-11-03] MEDS: FLUTICASONE 50MCG/SPRAY NASAL 16GM EA NOSTRIL SCH (08:44)
[2019-11-03] MEDS: ARIPiprazole 5 MG TAB PO SCH (08:44)
[2019-11-03] MEDS: ASPIRIN 81 MG PO SCH (08:44)
[2019-11-03] MEDS: FUROSEMIDE 40 MG TAB PO SCH ×2 (08:44→16:52)
--- NOTE | 2019-11-03 11:11 | P.PN ---
Subjective Progress Note Date: 11/01/19 Principal diagnosis: Shortness of breath 74-year-old male was brought to emergency room with complaints of increasing shortness of breath states this is been going on for about 3 days. Patient's been having difficulty with chronic urinary tract infection last culture showed Citrobacter freundii sensitive to the ceftriaxone. Patient has history of bipolar smoking GERD and hypertension last echo showed ejection fraction of 55- 60%\ 11/01/2019 Patient is currently lying in the bed. Still short of breath and having cough with green sputum production. Currently being continued on antibiotics in the form of ceftriaxone. Patient has been afebrile. 2-D echo cardiac exam showed normal ejection fraction. Currently requiring 3 L oxygen via nasal cannula. Creatinine level is 1.1. BUN 35. Cardiology is following. Current medications reviewed. Objective - Vital Signs Vital signs: Vital Signs Temp 98.1 F 11/01/19 04:00 Pulse 72 11/01/19 08:19 Resp 19 11/01/19 04:00 BP 120/66 11/01/19 04:00 Pulse Ox 95 11/01/19 08:10 Intake & Output 10/31/19 11/01/19 11/01/19 18:59 06:59 18:59 Intake Total 720 Output Total 900 950 Balance -180 -950 Weight 113.4 kg 113.5 kg Intake: Oral 720 Output: Urine 900 950 Other: Voiding Method Indwelling Catheter Indwelling Catheter - Exam PHYSICAL EXAMINATION: Patient is lying in the bed comfortably, no acute distress, awake alert and oriented. Lethargic. Obese. HEENT: Normocephalic. Neck is supple. Pupils reactive. Nostrils clear. Oral cavity is moist. Ears reveal no drainage. Neck reveals no JVD, carotid bruits, or thyromegaly. CHEST EXAMINATION: Trachea is central. Symmetrical expansion. Bilateral expiratory wheezing and rhonchi positive. CARDIAC: Normal S1, S2 with no gallops. No murmurs ABDOMEN: Soft. Bowel sounds normal. No organomegaly. No abdominal bruits. Extremities: reveal no edema. No clubbing or cyanosis Neurologically awake, alert, oriented x3 with well-coordinated movements. No focal deficits noted. Patient is lethargic otherwise. Skin: No rash or skin lesions. Psychiatric: Coperative. Nonsuicidal Musculoskeletal: No joint swelling or deformity. Normal range of motion. - Labs CBC & Chem 7: 11/03/19 06:02 11/03/19 06:02 Labs: Abnormal Lab Results - Last 24 Hours (Table) 10/30/19 10/31/19 10/31/19 Range/Units 23:54 11:52 17:03 Carbon Dioxide (22-30) mmol/L BUN (9-20) mg/dL Glucose (74-99) mg/dL POC Glucose (mg/dL) 190 H 197 H (75-99) mg/dL TSH 0.139 L (0.465-4.680) mIU/L 10/31/19 11/01/19 11/01/19 Range/Units 20:16 06:16 06:27 Carbon Dioxide 32 H (22-30) mmol/L BUN 35 H (9-20) mg/dL Glucose 191 H (74-99) mg/dL POC Glucose (mg/dL) 181 H 182 H (75-99) mg/dL TSH (0.465-4.680) mIU/L Microbiology - Last 24 Hours (Table) 10/30/19 18:50 Urine Culture - Final Urine,Clean Catch 10/30/19 16:45 Blood Culture - Preliminary Blood No Growth after 24 hours Assessment and Plan Assessment: Shortness of breath secondary to COPD and acute CHF Acute CHF with preserved ejection fraction. BNP is 2430. Echo cardiac exam showed normal ejection fraction. Moderate pulmonary hypertension Acute urinary tract infection. History of Recurrent urinary tract infection. Sinus bradycardia Hypertension Ongoing nicotine addiction Anxiety/depression/bipolar disorder DVT prophylaxis with heparin subcu Plan: Patient will be continued on DuoNeb's and IV steroids and antibiotics in the form of ceftriaxone. IV Lasix has been discontinued. Monitor renal function. Follow up final urine culture report. Continue the home medications and further recommendations based on the clinical course. Cardiology is on board. Time with Patient: Greater than 30
--- NOTE | 2019-11-03 11:13 | P.PN ---
Subjective Progress Note Date: 11/02/19 Principal diagnosis: Shortness of breath 74-year-old male was brought to emergency room with complaints of increasing shortness of breath states this is been going on for about 3 days. Patient's been having difficulty with chronic urinary tract infection last culture showed Citrobacter freundii sensitive to the ceftriaxone. Patient has history of bipolar smoking GERD and hypertension last echo showed ejection fraction of 55- 60%\ 11/01/2019 Patient is currently lying in the bed. Still short of breath and having cough with green sputum production. Currently being continued on antibiotics in the form of ceftriaxone. Patient has been afebrile. 2-D echo cardiac exam showed normal ejection fraction. Currently requiring 3 L oxygen via nasal cannula. Creatinine level is 1.1. BUN 35. Cardiology is following. 11/02/2019 next and patient is more awake and oriented today. Breathing status and cough is better. Urine culture showed normal vicenta. Patient has been a febrile. Still requiring oxygen via nasal cannula. Chest x-ray showed heart a medically with findings suggestive of chronic appearing interstitial change most likely on the basis of chronic pulmonary fibrosis. Subsegmental changes in the left retrocardiac region correlate for atelectasis versus infiltrate. Patient was encouraged with ambulation. PT OT will be consulted. Follow-up CBC and BMP tomorrow. Patient is a poor history and otherwise. Discussed with his family at bedside in detail. Current medications reviewed. Objective - Vital Signs Vital signs: Vital Signs Temp 97.1 F L 11/02/19 19:53 Pulse 76 11/02/19 23:20 Resp 18 11/02/19 23:20 BP 135/72 11/02/19 23:20 Pulse Ox 95 11/02/19 23:20 Intake & Output 11/02/19 11/02/19 11/03/19 06:59 18:59 06:59 Intake Total 720 Output Total 1375 1000 1000 Balance -1375 -280 -1000 Weight 116.2 kg Intake: Oral 720 Output: Urine 1375 1000 1000 Other: Voiding Method Indwelling Catheter Indwelling Catheter Indwelling Catheter - Exam PHYSICAL EXAMINATION: Patient is lying in the bed comfortably, no acute distress, awake alert and oriented. Lethargic. Obese. HEENT: Normocephalic. Neck is supple. Pupils reactive. Nostrils clear. Oral cavity is moist. Ears reveal no drainage. Neck reveals no JVD, carotid bruits, or thyromegaly. CHEST EXAMINATION: Trachea is central. Symmetrical expansion. Bilateral diminished air entry and scattered rhonchi and expiratory wheeze.. CARDIAC: Normal S1, S2 with no gallops. No murmurs ABDOMEN: Soft. Bowel sounds normal. No organomegaly. No abdominal bruits. Extremities: reveal no edema. No clubbing or cyanosis Neurologically awake, alert, oriented x3 with well-coordinated movements. No focal deficits noted. Patient is lethargic otherwise. Skin: No rash or skin lesions. Psychiatric: Coperative. Nonsuicidal Musculoskeletal: No joint swelling or deformity. Normal range of motion. - Labs CBC & Chem 7: 11/03/19 06:02 11/03/19 06:02 Labs: Abnormal Lab Results - Last 24 Hours (Table) 11/02/19 11/02/19 11/02/19 Range/Units 06:21 11:50 17:00 Chloride (98-107) mmol/L Carbon Dioxide (22-30) mmol/L BUN (9-20) mg/dL Creatinine (0.66-1.25) mg/dL Glucose (74-99) mg/dL POC Glucose (mg/dL) 179 H 231 H 161 H (75-99) mg/dL 11/02/19 11/02/19 Range/Units 17:06 20:39 Chloride 97 L (98-107) mmol/L Carbon Dioxide 33 H (22-30) mmol/L BUN 41 H (9-20) mg/dL Creatinine 1.26 H (0.66-1.25) mg/dL Glucose 146 H (74-99) mg/dL POC Glucose (mg/dL) 171 H (75-99) mg/dL Microbiology - Last 24 Hours (Table) 10/30/19 16:45 Blood Culture - Preliminary Blood No Growth after 72 hours Assessment and Plan Assessment: Shortness of breath secondary to COPD and acute CHF Acute CHF with preserved ejection fraction. BNP is 2430. Echo cardiac exam showed normal ejection fraction. Acute COPD exacerbation likely due to purulent tracheobronchitis. Moderate pulmonary hypertension Acute urinary tract infection. History of Recurrent urinary tract infection. Sinus bradycardia Hypertension Ongoing nicotine addiction Anxiety/depression/bipolar disorder Obesity with BMI 33.3 DVT prophylaxis with heparin subcu Plan: Patient will be continued on DuoNeb's and IV steroids and antibiotics in the fo rm of ceftriaxone. IV Lasix has been discontinued. Monitor renal function. Urine culture showed normal vicenta. Continue the home medications and further recommendations based on the clinical course. Cardiology is on board. Time with Patient: Greater than 30
[2019-11-03 11:57] LABS: Glucose,Whole Blood 139 mg/dL (75-99)
[2019-11-03 16:42] LABS: Glucose,Whole Blood 201 mg/dL (75-99)
[2019-11-03] MEDS: HEPARIN SODIUM,PORCINE 5,000 UNIT/ML 1 ML VIAL SQ SCH ×2 (16:52→23:45)
[2019-11-03] MEDS: SODIUM CHLORIDE 0.9% 1,000 ML IV SCH (17:08)
[2019-11-03] MEDS: FLUoxetine HCL 20 MG CAP PO SCH (20:45)
[2019-11-03] MEDS: LOPERAMIDE 2 MG CAP PO SCH (20:45)
[2019-11-03] MEDS: METOPROLOL SUCCINATE (ER) 25 MG TAB.ER.24H PO SCH (20:45)
[2019-11-03 20:50] LABS: Glucose,Whole Blood 184 mg/dL (75-99)
[2019-11-03] MEDS ORDERED: IPRATROPIUM-ALBUTEROL 3 ML NEB INHALATION PRN (20:50)
--- NOTE | 2019-11-04 01:54 | P.PN ---
Subjective Progress Note Date: 11/03/19 Principal diagnosis: Shortness of breath 74-year-old male was brought to emergency room with complaints of increasing shortness of breath states this is been going on for about 3 days. Patient's been having difficulty with chronic urinary tract infection last culture showed Citrobacter freundii sensitive to the ceftriaxone. Patient has history of bipolar smoking GERD and hypertension last echo showed ejection fraction of 55- 60%\ 11/01/2019 Patient is currently lying in the bed. Still short of breath and having cough with green sputum production. Currently being continued on antibiotics in the form of ceftriaxone. Patient has been afebrile. 2-D echo cardiac exam showed normal ejection fraction. Currently requiring 3 L oxygen via nasal cannula. Creatinine level is 1.1. BUN 35. Cardiology is following. 11/02/2019 next and patient is more awake and oriented today. Breathing status and cough is better. Urine culture showed normal vicenta. Patient has been a febrile. Still requiring oxygen via nasal cannula. Chest x-ray showed heart a medically with findings suggestive of chronic appearing interstitial change most likely on the basis of chronic pulmonary fibrosis. Subsegmental changes in the left retrocardiac region correlate for atelectasis versus infiltrate. Patient was encouraged with ambulation. PT OT will be consulted. Follow-up CBC and BMP tomorrow. Patient is a poor history and otherwise. Discussed with his family at bedside in detail. 11/03/2019 Patient is awake alert. Lying in the bed comfortably. Still requiring oxygen with another cannula. Diminished air entry bibasilar. Wheezing improved. No complaints of chest pain. Leukocytosis 15.2 likely due to steroids. Currently on breathing treatments and IV steroids and antibiotics in the form of ceftriaxone. Tolerating oral diet. PT OT will be consulted and possible discharge to home with home care versus rehab. Current medications reviewed. Objective - Vital Signs Vital signs: Vital Signs Temp 98.4 F 11/03/19 11:10 Pulse 70 11/03/19 11:10 Resp 18 11/03/19 11:10 BP 150/88 11/03/19 11:10 Pulse Ox 94 L 11/03/19 11:10 Intake & Output 11/02/19 11/03/19 11/03/19 18:59 06:59 18:59 Intake Total 720 240 360 Output Total 1000 1000 Balance -280 -760 360 Weight 114.4 kg Intake: Oral 720 240 360 Output: Urine 1000 1000 Other: Voiding Method Indwelling Catheter Indwelling Catheter Indwelling Catheter - Exam PHYSICAL EXAMINATION: Patient is lying in the bed comfortably, no acute distress, awake alert and oriented. Lethargic. Obese. HEENT: Normocephalic. Neck is supple. Pupils reactive. Nostrils clear. Oral cavity is moist. Ears reveal no drainage. Neck reveals no JVD, carotid bruits, or thyromegaly. CHEST EXAMINATION: Trachea is central. Symmetrical expansion. Bilateral diminished air entry and scattered rhonchi and no wheezing.. CARDIAC: Normal S1, S2 with no gallops. No murmurs ABDOMEN: Soft. Bowel sounds normal. No organomegaly. No abdominal bruits. Extremities: reveal no edema. No clubbing or cyanosis Neurologically awake, alert, oriented x3 with well-coordinated movements. No focal deficits noted. Patient is lethargic otherwise. Skin: No rash or skin lesions. Psychiatric: Coperative. Nonsuicidal Musculoskeletal: No joint swelling or deformity. Normal range of motion. - Labs CBC & Chem 7: 11/03/19 06:02 11/03/19 06:02 Labs: Abnormal Lab Results - Last 24 Hours (Table) 11/02/19 11/02/19 11/02/19 Range/Units 11:50 17:00 17:06 WBC (3.8-10.6) k/uL Neutrophils # (1.3-7.7) k/uL Lymphocytes # (1.0-4.8) k/uL Chloride 97 L (98-107) mmol/L Carbon Dioxide 33 H (22-30) mmol/L BUN 41 H (9-20) mg/dL Creatinine 1.26 H (0.66-1.25) mg/dL Glucose 146 H (74-99) mg/dL POC Glucose (mg/dL) 231 H 161 H (75-99) mg/dL 11/02/19 11/03/19 11/03/19 Range/Units 20:39 06:02 06:02 WBC 15.3 H (3.8-10.6) k/uL Neutrophils # 14.2 H (1.3-7.7) k/uL Lymphocytes # 0.5 L (1.0-4.8) k/uL Chloride 97 L (98-107) mmol/L Carbon Dioxide 35 H (22-30) mmol/L BUN 45 H (9-20) mg/dL Creatinine (0.66-1.25) mg/dL Glucose 178 H (74-99) mg/dL POC Glucose (mg/dL) 171 H (75-99) mg/dL 11/03/19 Range/Units 06:15 WBC (3.8-10.6) k/uL Neutrophils # (1.3-7.7) k/uL Lymphocytes # (1.0-4.8) k/uL Chloride (98-107) mmol/L Carbon Dioxide (22-30) mmol/L BUN (9-20) mg/dL Creatinine (0.66-1.25) mg/dL Glucose (74-99) mg/dL POC Glucose (mg/dL) 169 H (75-99) mg/dL Microbiology - Last 24 Hours (Table) 10/30/19 16:45 Blood Culture - Preliminary Blood No Growth after 72 hours Assessment and Plan Assessment: Shortness of breath secondary to COPD and acute CHF Acute CHF with preserved ejection fraction. BNP is 2430. Echo cardiac exam showed normal ejection fraction. Acute COPD exacerbation likely due to purulent tracheobronchitis. Moderate pulmonary hypertension Acute urinary tract infection. History of Recurrent urinary tract infection. Sinus bradycardia Hypertension Ongoing nicotine addiction Anxiety/depression/bipolar disorder Obesity with BMI 33.3 DVT prophylaxis with heparin subcu Plan: Patient will be continued on DuoNeb's and IV steroids and antibiotics in the form of ceftriaxone. IV Lasix has been discontinued. Changed to by mouth. Monitor renal function. Urine culture showed normal vicenta. Continue the home medications and further recommendations based on the clinical course. Cardiology is on board. Anticipate discharge next 24 hours. Time with Patient: Greater than 30
[2019-11-04] MEDS: methylPREDNISolone SOD SUCCI 125 MG/2 ML VIAL IV SCH ×2 (05:43→12:59)
[2019-11-04 06:01] LABS: Glucose,Whole Blood 142 mg/dL (75-99)
[2019-11-04 06:14] LABS: Basophils % (A) 0 %; Eosinophils % (A) 0 %; HCT 46.9 % (39.0-53.0); HGB 15.4 gm/dL (13.0-17.5); Lymphocytes # (A) 0.4 k/uL (1.0-4.8); Lymphocytes % (A) 5 %; MCH 30.7 pg (25.0-35.0); MCHC 32.8 g/dL (31.0-37.0); MCV 93.7 fL (80.0-100.0); Mean Platelet Volume 6.4; Monocytes # (A) 0.3 k/uL (0-1.0); Monocytes % (A) 3 %; Neutrophils % (A) 92 %; Platelet Count 211 k/uL (150-450); RBC 5.01 m/uL (4.30-5.90); RDW 13.6 % (11.5-15.5); WBC 9.8 k/uL (3.8-10.6)
[2019-11-04 06:20] LABS: Calcium 8.8 mg/dL (8.4-10.2)
[2019-11-04] MEDS: INSULIN ASPART (NovoLOG) 100 UNIT/ML VIAL SQ SCH ×2 (06:40→12:59)
[2019-11-04] MEDS: IPRATROPIUM-ALBUTEROL 3 ML NEB INHALATION SCH ×3 (07:03→16:13)
[2019-11-04] MEDS: ASPIRIN 81 MG PO SCH (08:15)
[2019-11-04] MEDS: FUROSEMIDE 40 MG TAB PO SCH (08:15)
[2019-11-04] MEDS: LORATADINE 10 MG TAB PO SCH (08:15)
[2019-11-04] MEDS: HEPARIN SODIUM,PORCINE 5,000 UNIT/ML 1 ML VIAL SQ SCH (08:15)
[2019-11-04] MEDS: LOSARTAN 25 MG TAB PO SCH (08:15)
[2019-11-04] MEDS: ARIPiprazole 5 MG TAB PO SCH (08:15)
[2019-11-04] MEDS: FLUTICASONE 50MCG/SPRAY NASAL 16GM EA NOSTRIL SCH (08:16)
[2019-11-04 11:18] VITALS: BP 143/77; RESP 18; TEMP 98.4
[2019-11-04 12:10] LABS: Glucose,Whole Blood 132 mg/dL (75-99)
--- NOTE | 2019-11-04 15:14 | CDI ---
Documentation Clarification Form Date: 11/04/2019 3:04:25 PM From: Myrna Willis CCS, CCDS Admit Date: 10/30/2019 5:53:00 PM Patient Name: Mihir Gottlieb Visit Number: [id number] Discharge Date: ATTENTION: The Clinical Documentation Specialists (CDI) and [facility] Coding Staff appreciate your assistance in clarifying documentation. Please respond to the clarification below the line at the bottom and electronically sign. The CDI & [facility] Coding staff will review the response and follow-up if needed. Please note: Queries are made part of the Legal Health Record. If you have any questions, please contact the author of this message via ITS. Dr. Alvin Mott: Per the 10/31 Cardiology consult: "symptoms of progressively worsening shortness of breath or cough of green sputum. Likely combination of congestive cardiac failure and possible tracheobronchitis." Per the 11/03 attending progress note: "Shortness of breath secondary to COPD and acute CHF. Acute CHF with preserved ejection fraction. BNP is 2430. Echo cardiac exam showed normal ejection fraction." History/Risk Factors: Heart Failure, COPD, GERD, Hypertension, Smoker. Clinical Indicators: Presented with increasing SOB x3 days, difficulty with chronic urinary tract infection, last ECHO: EF 55-60%. VS: T 97.8, P 68 - 55*, R 26^, BP 155/92^, PO 93 RA* BNP: 2430 Echocardiogram Results 10/31: Mod concentric left ventricular hypertrophy, systolic function normal, EF 55-60%, Mild aortic valve sclerosis, Mild MR, Mild TR, mod pulmonary hypertension. Chest X Ray: No evidence for acute pulmonary disease. Treatment: INH Albuterol, IV Solumedrol, IV fl 20, IV Lasix. In your professional opinion, can you please clarify the acuity and type of CHF if known? Heart Failure is ruled out Systolic Heart Failure: o Acute o Chronic o Acute on Chronic Diastolic Heart Failure: o Acute o Chronic o Acute on Chronic Systolic & Diastolic Heart Failure: o Acute o Chronic o Acute on Chronic Heart Failure Unable to Determine Other, please specify (Last Revision: February 2018) MTDD
[2019-11-04 16:23] VITALS: PULSE 66
[2019-11-04 16:52] LABS: Glucose,Whole Blood 148 mg/dL (75-99)
--- NOTE | 2019-11-05 11:45 | P.DS ---
Providers Date of admission: 10/30/19 17:53 Expected date of discharge: 11/04/19 Attending physician: Alvin Mott Consults: 10/30/19 17:53 Consult Physician Routine Consulting Provider: Ron Wood Consult Reason/Comments: CHF Do you want consulting provider notified?: Yes Primary care physician: Alvin Mott Hospital Course: 74-year-old male was admitted for complaints of urinary tract infection and shortness of breath refractory to home medication. Patient was evaluated for cardiology for possible congestive heart failure. Echo showed ejection fraction of 55-60% moderate pulmonary hypertension. Patient was treated for COPD acute bronchitis. Patient was stabilized and cleared for discharge Assessment Pulmonary hypertension ejection fraction 55-60% Acute exacerbation of COPD with bronchitis urinary tract infection Bipolar Smoker GERD Hypertension Plan Follow-up with family physician Dr. Alvin Mott and cardiology Patient Condition at Discharge: Stable Plan - Discharge Summary New Discharge Prescriptions: New Aspirin 81 mg PO DAILY chew Losartan [Cozaar] 25 mg PO BID #60 tab Furosemide [Lasix] 40 mg PO BID@0900,1600 #60 tab Metoprolol Succinate (ER) [Toprol XL] 25 mg PO HS #30 tab.er.24h Acetaminophen Tab [Tylenol] 650 mg PO Q6HR PRN tab PRN Reason: Mild Pain Or Fever > 100.5 predniSONE 10 mg PO DAILY #40 tab Continue Levocetirizine Dihydrochloride [Xyzal] 5 mg PO DAILY FLUoxetine HCL [PROzac] 20 mg PO HS Loperamide HCl [Imodium A-D] 4 mg PO HS ARIPiprazole [Abilify] 5 mg PO DAILY Fluticasone Nasal [place] [Flonase Nasal [place]] 2 spray EA NOSTRIL DAILY spr Artificial Tears-Hypromellose [Artificial Tear Drops] 1 drop BOTH EYES TID PRN PRN Reason: Dry Eye(S)/ITCH Tiotropium [place] [Spiriva Respimat] 1 puff INHALATION RT-DAILY Albuterol Nebulized [Ventolin Nebulized] 2.5 mg INHALATION RT-QID Albuterol Inhaler [Ventolin Hfa Inhaler] 1 - 2 puff INHALATION RT-Q6H PRN PRN Reason: Shortness Of Breath Discontinued Metoprolol Succinate [Toprol XL] 50 mg PO HS Discharge Medication List Levocetirizine Dihydrochloride [Xyzal] 5 mg PO DAILY 11/23/18 [History] FLUoxetine HCL [PROzac] 20 mg PO HS 08/10/19 [History] Loperamide HCl [Imodium A-D] 4 mg PO HS 08/10/19 [History] ARIPiprazole [Abilify] 5 mg PO DAILY 08/11/19 [History] Fluticasone Nasal [place] [Flonase Nasal [place]] 2 spray EA NOSTRIL DAILY spr 08/13/19 [Rx] Albuterol Inhaler [Ventolin Hfa Inhaler] 1 - 2 puff INHALATION RT-Q6H PRN 10/30/19 [History] Albuterol Nebulized [Ventolin Nebulized] 2.5 mg INHALATION RT-QID 10/30/19 [History] Artificial Tears-Hypromellose [Artificial Tear Drops] 1 drop BOTH EYES TID PRN 10/30/19 [History] Tiotropium [place] [Spiriva Respimat] 1 puff INHALATION RT-DAILY 10/30/19 [History] Acetaminophen Tab [Tylenol] 650 mg PO Q6HR PRN tab 11/04/19 [Rx] Aspirin 81 mg PO DAILY chew 11/04/19 [Rx] Furosemide [Lasix] 40 mg PO BID@0900,1600 #60 tab 11/04/19 [Rx] Losartan [Cozaar] 25 mg PO BID #60 tab 11/04/19 [Rx] Metoprolol Succinate (ER) [Toprol XL] 25 mg PO HS #30 tab.er.24h 11/04/19 [Rx] predniSONE 10 mg PO DAILY #40 tab 11/04/19 [Rx] Follow up Appointment(s)/Referral(s): Alvin Mott MD [Primary Care Provider] - 11/08/19 2:30 pm (Monday) [facility], [NON-STAFF] - Dom Cristina MD [STAFF PHYSICIAN] - 11/15/19 10:30 am (Monday -please bring ID and insurance information) Patient Instructions/Handouts: Heart Failure (DC), Chance Catheter Placement and Care (DC) Discharge Disposition: HOME WITH HOME HEALTH SERVICES
== END 2019-11-04 18:04 | disposition home health service (06) | DRG 190 ==
LOC: EC 15:49 → 3SCARD 17:53
PROVIDERS: ADMIT Family Medicine; ATTEND Family Medicine
DX: J44.0 Chronic obstructive pulmonary disease with (acute) lower respiratory infection (principal); I50.33 Acute on chronic diastolic (congestive) heart failure; F31.30 Bipolar disorder, current episode depressed, mild or moderate severity, unspecified; N39.0 Urinary tract infection, site not specified; J44.1 Chronic obstructive pulmonary disease with (acute) exacerbation; J20.9 Acute bronchitis, unspecified; E66.9 Obesity, unspecified; F17.200 Nicotine dependence, unspecified, uncomplicated; F41.9 Anxiety disorder, unspecified; I11.0 Hypertensive heart disease with heart failure; I27.20 Pulmonary hypertension, unspecified; I49.3 Ventricular premature depolarization; K21.9 Gastro-esophageal reflux disease without esophagitis; T38.0X5A Adverse effect of glucocorticoids and synthetic analogues, initial encounter; Z68.33 Body mass index [BMI] 33.0-33.9, adult; Z79.899 Other long term (current) drug therapy; Z83.3 Family history of diabetes mellitus; Z87.440 Personal history of urinary (tract) infections; Z91.5 Personal history of self-harm; Z79.51 Long term (current) use of inhaled steroids; D72.829 Elevated white blood cell count, unspecified
CPT/HCPCS: 36415; 71046; 80048; 80053; 81001; 82550; 83735; 83880; 84443; 84484; 85025; 85610; 85730; 87040; 87086; 93005; 93306; 94640; 94760; 96374; 96375; 99291

== ENCOUNTER 2019-11-06 12:48 | Observation (INO) | payer MEDICARE ==
[2019-11-06] MEDS ORDERED: ARTIFICIAL TEARS-HYPROMELLOSE DROPS 15 ML BTL BOTH EYES PRN (15:40)
[2019-11-06] MEDS ORDERED: ACETAMINOPHEN TAB 325 MG TAB PO PRN (15:40)
[2019-11-06 15:47] LABS: HGB 17.3 gm/dL (13.0-17.5); RBC 5.58 m/uL (4.30-5.90); WBC 10.3 k/uL (3.8-10.6)
[2019-11-06 15:48] LABS: Basophils % (A) 0 %; Eosinophils % (A) 0 %; Lymphocytes # (A) 0.8 k/uL (1.0-4.8); Lymphocytes % (A) 8 %; MCHC 32.7 g/dL (31.0-37.0); MCV 95.1 fL (80.0-100.0); Mean Platelet Volume 7.4; Monocytes # (A) 0.6 k/uL (0-1.0); Monocytes % (A) 6 %; Neutrophils # (A) 8.8 k/uL (1.3-7.7); Neutrophils % (A) 85 %; Platelet Count 182 k/uL (150-450); RDW 13.6 % (11.5-15.5)
[2019-11-06 15:57] LABS: Albumin 3.8 g/dL (3.5-5.0); Calcium 8.8 mg/dL (8.4-10.2); Total Bilirubin 1.2 mg/dL (0.2-1.3); Total Protein 6.4 g/dL (6.3-8.2)
[2019-11-06] MEDS ORDERED: ALBUTEROL NEBULIZED 2.5 MG/3 ML INHALATION SCH (16:00)
[2019-11-06] MEDS: FUROSEMIDE 40 MG TAB PO SCH (16:01)
[2019-11-06] MEDS: IPRATROPIUM-ALBUTEROL 3 ML NEB INHALATION SCH ×2 (16:12→20:11)
--- NOTE | 2019-11-06 20:04 | XR ---
EXAMINATION TYPE: XR chest 2V DATE OF EXAM: 11/06/2019 COMPARISON: 11/02/2019 HISTORY: COPD TECHNIQUE: 2 views FINDINGS: There is no heart failure nor confluent pneumonic infiltrate. Costophrenic angles are clear . Bony thorax is intact. IMPRESSION: No active cardiopulmonary disease. No change.
[2019-11-06] MEDS: LOSARTAN 25 MG TAB PO SCH (21:54)
[2019-11-06] MEDS: FLUoxetine HCL 20 MG CAP PO SCH (21:54)
[2019-11-06] MEDS: METOPROLOL SUCCINATE (ER) 25 MG TAB.ER.24H PO SCH (21:55)
[2019-11-07] MEDS ORDERED: TIOTROPIUM BROMIDE INHALATION SCH (08:00)
[2019-11-07] MEDS: ASPIRIN 81 MG PO SCH (08:19)
[2019-11-07] MEDS: ARIPiprazole 5 MG TAB PO SCH (08:19)
[2019-11-07] MEDS: LORATADINE 10 MG TAB PO SCH (08:19)
[2019-11-07] MEDS: LOSARTAN 25 MG TAB PO SCH ×2 (08:19→21:49)
[2019-11-07] MEDS: FUROSEMIDE 40 MG TAB PO SCH ×2 (08:19→15:55)
[2019-11-07] MEDS: FLUTICASONE 50MCG/SPRAY NASAL 16GM EA NOSTRIL SCH (08:22)
[2019-11-07] MEDS: IPRATROPIUM-ALBUTEROL 3 ML NEB INHALATION SCH ×4 (09:16→19:36)
[2019-11-07 11:20] VITALS: BMI 32.0
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
--- NOTE | 2019-11-07 12:56 | P.DS ---
Providers Date of admission: 11/06/19 13:01 Attending physician: Alvin Mott Primary care physician: Alvin Mott Hospital Course: Patient was readmitted for evaluation for transfer to extended care facility. Patient on able to be care for by his family at home because of extreme weakness Assessment Pulmonary hypertension ejection fraction 55-60% COPD stable Weakness with failure to thrive Bipolar Smoker GERD Hypertension Plan Transfer to extended care facility home medications Plan - Discharge Summary New Discharge Prescriptions: Continue Levocetirizine Dihydrochloride [Xyzal] 5 mg PO DAILY FLUoxetine HCL [PROzac] 20 mg PO HS Loperamide HCl [Imodium A-D] 4 mg PO HS ARIPiprazole [Abilify] 5 mg PO DAILY Fluticasone Nasal [place] [Flonase Nasal [place]] 2 spray EA NOSTRIL DAILY spr Artificial Tears-Hypromellose [Artificial Tear Drops] 1 drop BOTH EYES TID PRN PRN Reason: Dry Eye(S)/ITCH Tiotropium [place] [Spiriva Respimat] 1 puff INHALATION RT-DAILY Albuterol Nebulized [Ventolin Nebulized] 2.5 mg INHALATION RT-QID Albuterol Inhaler [Ventolin Hfa Inhaler] 1 - 2 puff INHALATION RT-Q6H PRN PRN Reason: Shortness Of Breath Aspirin 81 mg PO DAILY chew Losartan [Cozaar] 25 mg PO BID #60 tab Furosemide [Lasix] 40 mg PO BID@0900,1600 #60 tab Metoprolol Succinate (ER) [Toprol XL] 25 mg PO HS #30 tab.er.24h Acetaminophen Tab [Tylenol] 650 mg PO Q6HR PRN tab PRN Reason: Mild Pain Or Fever > 100.5 Discontinued predniSONE See Taper PO DAILY Discharge Medication List Levocetirizine Dihydrochloride [Xyzal] 5 mg PO DAILY 11/23/18 [History] FLUoxetine HCL [PROzac] 20 mg PO HS 08/10/19 [History] Loperamide HCl [Imodium A-D] 4 mg PO HS 08/10/19 [History] ARIPiprazole [Abilify] 5 mg PO DAILY 08/11/19 [History] Fluticasone Nasal [place] [Flonase Nasal [place]] 2 spray EA NOSTRIL DAILY spr 08/13/19 [Rx] Albuterol Inhaler [Ventolin Hfa Inhaler] 1 - 2 puff INHALATION RT-Q6H PRN 10/30/19 [History] Albuterol Nebulized [Ventolin Nebulized] 2.5 mg INHALATION RT-QID 10/30/19 [History] Artificial Tears-Hypromellose [Artificial Tear Drops] 1 drop BOTH EYES TID PRN 10/30/19 [History] Tiotropium [place] [Spiriva Respimat] 1 puff INHALATION RT-DAILY 10/30/19 [History] Acetaminophen Tab [Tylenol] 650 mg PO Q6HR PRN tab 11/04/19 [Rx] Aspirin 81 mg PO DAILY chew 11/04/19 [Rx] Furosemide [Lasix] 40 mg PO BID@0900,1600 #60 tab 11/04/19 [Rx] Losartan [Cozaar] 25 mg PO BID #60 tab 11/04/19 [Rx] Metoprolol Succinate (ER) [Toprol XL] 25 mg PO HS #30 tab.er.24h 11/04/19 [Rx]
[2019-11-07 20:59] LABS: Glucose,Whole Blood 127 mg/dL (75-99)
[2019-11-07] MEDS: METOPROLOL SUCCINATE (ER) 25 MG TAB.ER.24H PO SCH (21:48)
[2019-11-07] MEDS: FLUoxetine HCL 20 MG CAP PO SCH (21:49)
[2019-11-08 05:54] VITALS: BP 123/73; TEMP 97.7
[2019-11-08] MEDS: ASPIRIN 81 MG PO SCH (08:50)
[2019-11-08] MEDS: LOSARTAN 25 MG TAB PO SCH (08:50)
[2019-11-08] MEDS: LORATADINE 10 MG TAB PO SCH (08:50)
[2019-11-08] MEDS: FLUTICASONE 50MCG/SPRAY NASAL 16GM EA NOSTRIL SCH (08:50)
[2019-11-08] MEDS: FUROSEMIDE 40 MG TAB PO SCH (08:50)
[2019-11-08] MEDS: ARIPiprazole 5 MG TAB PO SCH (08:50)
[2019-11-08] MEDS: IPRATROPIUM-ALBUTEROL 3 ML NEB INHALATION SCH ×2 (08:53→13:12)
[2019-11-08 10:30] VITALS: RESP 16
[2019-11-08 13:23] VITALS: PULSE 68
== END 2019-11-08 14:08 ==
LOC: 4MS4W 13:01 → INTOOBSV 13:01
PROVIDERS: ADMIT Family Medicine; ATTEND Family Medicine
DX: I27.20 Pulmonary hypertension, unspecified (principal); R53.1 Weakness; R62.7 Adult failure to thrive; J44.9 Chronic obstructive pulmonary disease, unspecified; F31.9 Bipolar disorder, unspecified; F17.200 Nicotine dependence, unspecified, uncomplicated; K21.9 Gastro-esophageal reflux disease without esophagitis; I11.0 Hypertensive heart disease with heart failure; I50.9 Heart failure, unspecified; R41.82 Altered mental status, unspecified; F41.9 Anxiety disorder, unspecified; Z68.32 Body mass index [BMI] 32.0-32.9, adult; Z87.898 Personal history of other specified conditions; Z90.89 Acquired absence of other organs; Z98.890 Other specified postprocedural states; Z91.5 Personal history of self-harm; Z80.9 Family history of malignant neoplasm, unspecified; Z83.3 Family history of diabetes mellitus; Z79.899 Other long term (current) drug therapy; Z79.82 Long term (current) use of aspirin
CPT/HCPCS: 94640 ×6; 97116; 97162; 97535; 97166; 80053; 85025; 71046; G0378 ×2

== ENCOUNTER → 2019-12-06 | Outpatient (CLI) | payer MEDICARE ==
[2019-12-06 19:06] LABS: African American GFR (CKD) 75.2 (60.0-200.0); Albumin 4.1 g/dL (3.80-4.90); Albumin/Globulin Ratio 1.95 (1.60-3.17); Anion Gap 8.8 mmol/L (4.00-12.00); BUN/Creat Ratio 20.91 Ratio (12.00-20.00); Calcium 8.6 mg/dL (8.7-10.3); Carbon Dioxide 33.2 mmol/L (21.6-31.8); Globulin 2.1 g/dL (1.6-3.3); Non-African American GFR(CKD) 64.9 (60.0-200.0); Potassium 4.6 mmol/L (3.5-5.5); Total Bilirubin 0.6 mg/dL (0.3-1.2); Total Protein 6.2 g/dL (6.2-8.2)
== END | disposition home or self-care (01) ==
LOC: LABWHC1 11:30
PROVIDERS: ATTEND Family Medicine
DX: I10 Essential (primary) hypertension (principal); R41.82 Altered mental status, unspecified
CPT/HCPCS: 36415; 80053

== ENCOUNTER 2019-12-29 11:34 | Inpatient (IN) | payer MEDICARE ==
[2019-12-29] MEDS ORDERED: IPRATROPIUM-ALBUTEROL 3 ML NEB INHALATION STA (12:16)
--- NOTE | 2019-12-29 12:19 | ED ---
SOB HPI - General Chief Complaint: Shortness of Breath Stated Complaint: altered mental status Time Seen by Provider: 12/29/19 12:00 Source: patient, family, RN notes reviewed Mode of arrival: ambulatory Limitations: no limitations - History of Present Illness Initial Comments: This is a 74-year-old male was brought in by family due to several issues she had the onset of confusion over last several days with some memory impairment in this way was very bad. He also has shortness of breath he did have nebulizer treatments prior to coming to the hospital today additionally he had some urine was noted be very foul-smelling and cloudy. He's here for evaluation initially did not know what day it was he now knows it is super bowl Monday. He knows the date. He has no shortness breath no overt fevers chills or sweats. No abdominal pain no headache no other modifying factors at this time. Per his daughter when he gets infection he does act like this. Normal axis lower progression she states however. MD Complaint: shortness of breath - Related Data Home Medications Medication Instructions Recorded Confirmed Levocetirizine Dihydrochloride 5 mg PO DAILY 11/23/18 12/29/19 [Xyzal] FLUoxetine HCL [PROzac] 20 mg PO HS 08/10/19 12/29/19 Loperamide HCl [Imodium A-D] 4 mg PO HS 08/10/19 12/29/19 ARIPiprazole [Abilify] 5 mg PO DAILY 08/11/19 12/29/19 Albuterol Nebulized [Ventolin 2.5 mg INHALATION RT-QID 10/30/19 12/29/19 Nebulized] Artificial Tears-Hypromellose 1 drop BOTH EYES TID PRN 10/30/19 12/29/19 [Artificial Tear Drops] Tiotropium [place] [Spiriva 1 puff INHALATION RT-DAILY 10/30/19 12/29/19 Respimat] Furosemide [Lasix] 40 mg PO Q48H 12/29/19 12/29/19 Previous Rx's Medication Instructions Recorded Fluticasone Nasal [place] [Flonase 2 spray EA NOSTRIL DAILY spr 08/13/19 Nasal [place]] Losartan [Cozaar] 25 mg PO BID #60 tab 11/04/19 Metoprolol Succinate (ER) [Toprol 25 mg PO HS #30 tab.er.24h 11/04/19 XL] Allergies Allergy/AdvReac Type Severity Reaction Status Date / Time No Known Allergies Allergy Verified 12/29/19 11:43 Review of Systems ROS Statement: Those systems with pertinent positive or pertinent negative responses have been documented in the HPI. ROS Other: All systems not noted in ROS Statement are negative. Past Medical History Past Medical History: Heart Failure, COPD, GERD/Reflux, Hypertension Additional Past Medical History / Comment(s): pt states sexual issue in the past would not go into deals History of Any Multi-Drug Resistant Organisms: None Reported Past Surgical History: Adenoidectomy Additional Past Surgical History / Comment(s): left wrist surgery 12 years ago, (Pt has AMS, denies adenoidectomy) Past Anesthesia/Blood Transfusion Reactions: No Reported Reaction Past Psychological History: Anxiety, Bipolar, Depression Smoking Status: Former smoker Past Alcohol Use History: None Reported, Occasional Past Drug Use History: None Reported - Past Family History Mother Family Medical History: Cancer Father Family Medical History: Diabetes Mellitus General Exam - General Exam Comments Initial Comments: This is a well-developed well-nourished awake alert oriented 3 male Limitations: no limitations General appearance: alert, in no apparent distress Head exam: Present: atraumatic, normocephalic, normal inspection Eye exam: Present: normal appearance, PERRL, EOMI. Absent: scleral icterus, conjunctival injection, periorbital swelling ENT exam: Present: normal exam, mucous membranes moist Neck exam: Present: normal inspection, full ROM, other (No stridor JVD or bruits). Absent: tenderness, meningismus, lymphadenopathy Respiratory exam: Present: wheezes, decreased breath sounds. Absent: respiratory distress, rales, rhonchi, stridor Cardiovascular Exam: Present: normal rhythm, tachycardia, normal heart sounds. Absent: systolic murmur, diastolic murmur, rubs, gallop, clicks GI/Abdominal exam: Present: soft, normal bowel sounds. Absent: distended, tenderness, guarding, rebound, rigid Extremities exam: Present: normal inspection, full ROM, normal capillary refill. Absent: tenderness, pedal edema, joint swelling, calf tenderness Back exam: Present: normal inspection Neurological exam: Present: alert, oriented X3, CN II-XII intact Psychiatric exam: Present: normal affect, normal mood Skin exam: Present: warm, dry, intact, normal color. Absent: rash Course Vital Signs 12/29/19 12/29/19 12/29/19 11:43 11:54 12:00 Temperature 97.8 F Pulse Rate 111 H 104 H Respiratory 22 29 H Rate Blood Pressure 102/62 O2 Sat by Pulse 93 L 87 L 92 L Oximetry 12/29/19 12/29/19 12/29/19 12:28 12:30 12:34 Temperature Pulse Rate 94 93 96 Respiratory 27 H Rate Blood Pressure O2 Sat by Pulse 95 Oximetry 12/29/19 12/29/19 12/29/19 13:00 13:30 14:00 Temperature Pulse Rate 90 90 Respiratory 23 23 9 L Rate Blood Pressure O2 Sat by Pulse 92 L Oximetry 12/29/19 12/29/19 12/29/19 14:10 14:30 14:49 Temperature Pulse Rate 82 82 83 Respiratory 23 23 18 Rate Blood Pressure 144/103 144/103 135/100 O2 Sat by Pulse 91 L 95 Oximetry Medical Decision Making - Medical Decision Making Patient was evaluated on several occasions he continues to desaturate into the high 80s low 90s 90 tab of exertional of oxygen. He will be admitted additionally the urine is consistent with UTI the patient place an IV antibiotics addition updrafts and steroids. Case was discussed with Dr. Moore who is covering Dr. Mott - Lab Data Result diagrams: 12/29/19 12:08 12/29/19 12:08 Lab Results 12/29/19 12/29/19 12/29/19 Range/Units 12:08 12:08 12:08 WBC 6.3 (3.8-10.6) k/uL RBC 4.81 (4.30-5.90) m/uL Hgb 14.7 (13.0-17.5) gm/dL Hct 45.3 (39.0-53.0) % MCV 94.2 (80.0-100.0) fL MCH 30.6 (25.0-35.0) pg MCHC 32.5 (31.0-37.0) g/dL RDW 14.8 (11.5-15.5) % Plt Count 165 (150-450) k/uL Neutrophils % 74 % Lymphocytes % 14 % Monocytes % 7 % Eosinophils % 3 % Basophils % 1 % Neutrophils # 4.7 (1.3-7.7) k/uL Lymphocytes # 0.9 L (1.0-4.8) k/uL Monocytes # 0.4 (0-1.0) k/uL Eosinophils # 0.2 (0-0.7) k/uL Basophils # 0.0 (0-0.2) k/uL PT (9.0-12.0) sec INR (<1.2) APTT (22.0-30.0) sec Sodium 138 (137-145) mmol/L Potassium 4.2 (3.5-5.1) mmol/L Chloride 103 (98-107) mmol/L Carbon Dioxide 28 (22-30) mmol/L Anion Gap 7 mmol/L BUN 10 (9-20) mg/dL Creatinine 0.73 (0.66-1.25) mg/dL Est GFR (CKD-EPI)AfAm >90 (>60 ml/min/1.73 sqM) Est GFR (CKD-EPI)NonAf >90 (>60 ml/min/1.73 sqM) Glucose 110 H (74-99) mg/dL Plasma Lactic Acid Scooter 2.5 H* (0.7-2.0) mmol/L Calcium 9.0 (8.4-10.2) mg/dL Magnesium 2.0 (1.6-2.3) mg/dL Total Bilirubin 1.2 (0.2-1.3) mg/dL AST 22 (17-59) U/L ALT 13 (4-49) U/L Alkaline Phosphatase 62 (38-126) U/L Creatine Kinase 63 (55-170) U/L Troponin I (0.000-0.034) ng/mL NT-Pro-B Natriuret Pep pg/mL Total Protein 6.9 (6.3-8.2) g/dL Albumin 3.9 (3.5-5.0) g/dL Urine Color Urine Appearance (Clear) Urine pH (5.0-8.0) Ur Specific [place] (1.001-1.035) Urine Protein (Negative) Urine Glucose (UA) (Negative) Urine Ketones (Negative) Urine Blood (Negative) Urine Nitrite (Negative) Urine Bilirubin (Negative) Urine Urobilinogen (<2.0) mg/dL Ur Leukocyte Esterase (Negative) Urine RBC (0-5) /hpf Urine WBC (0-5) /hpf Ur Squamous Epith Cells (0-4) /hpf Amorphous Sediment (None) /hpf Urine Mucus (None) /hpf Influenza Type A RNA (Not Detectd) Influenza Type B (PCR) (Not Detectd) 12/29/19 12/29/19 12/29/19 Range/Units 12:08 12:08 12:08 WBC (3.8-10.6) k/uL RBC (4.30-5.90) m/uL Hgb (13.0-17.5) gm/dL Hct (39.0-53.0) % MCV (80.0-100.0) fL MCH (25.0-35.0) pg MCHC (31.0-37.0) g/dL RDW (11.5-15.5) % Plt Count (150-450) k/uL Neutrophils % % Lymphocytes % % Monocytes % % Eosinophils % % Basophils % % Neutrophils # (1.3-7.7) k/uL Lymphocytes # (1.0-4.8) k/uL Monocytes # (0-1.0) k/uL Eosinophils # (0-0.7) k/uL Basophils # (0-0.2) k/uL PT 10.2 (9.0-12.0) sec INR 1.0 (<1.2) APTT 25.6 (22.0-30.0) sec Sodium (137-145) mmol/L Potassium (3.5-5.1) mmol/L Chloride (98-107) mmol/L Carbon Dioxide (22-30) mmol/L Anion Gap mmol/L BUN (9-20) mg/dL Creatinine (0.66-1.25) mg/dL Est GFR (CKD-EPI)AfAm (>60 ml/min/1.73 sqM) Est GFR (CKD-EPI)NonAf (>60 ml/min/1.73 sqM) Glucose (74-99) mg/dL Plasma Lactic Acid Scooter (0.7-2.0) mmol/L Calcium (8.4-10.2) mg/dL Magnesium (1.6-2.3) mg/dL Total Bilirubin (0.2-1.3) mg/dL AST (17-59) U/L ALT (4-49) U/L Alkaline Phosphatase (38-126) U/L Creatine Kinase (55-170) U/L Troponin I <0.012 (0.000-0.034) ng/mL NT-Pro-B Natriuret Pep 478 pg/mL Total Protein (6.3-8.2) g/dL Albumin (3.5-5.0) g/dL Urine Color Urine Appearance (Clear) Urine pH (5.0-8.0) Ur Specific [place] (1.001-1.035) Urine Protein (Negative) Urine Glucose (UA) (Negative) Urine Ketones (Negative) Urine Blood (Negative) Urine Nitrite (Negative) Urine Bilirubin (Negative) Urine Urobilinogen (<2.0) mg/dL Ur Leukocyte Esterase (Negative) Urine RBC (0-5) /hpf Urine WBC (0-5) /hpf Ur Squamous Epith Cells (0-4) /hpf Amorphous Sediment (None) /hpf Urine Mucus (None) /hpf Influenza Type A RNA (Not Detectd) Influenza Type B (PCR) (Not Detectd) 12/29/19 12/29/19 Range/Units 12:25 14:14 WBC (3.8-10.6) k/uL RBC (4.30-5.90) m/uL Hgb (13.0-17.5) gm/dL Hct (39.0-53.0) % MCV (80.0-100.0) fL MCH (25.0-35.0) pg MCHC (31.0-37.0) g/dL RDW (11.5-15.5) % Plt Count (150-450) k/uL Neutrophils % % Lymphocytes % % Monocytes % % Eosinophils % % Basophils % % Neutrophils # (1.3-7.7) k/uL Lymphocytes # (1.0-4.8) k/uL Monocytes # (0-1.0) k/uL Eosinophils # (0-0.7) k/uL Basophils # (0-0.2) k/uL PT (9.0-12.0) sec INR (<1.2) APTT (22.0-30.0) sec Sodium (137-145) mmol/L Potassium (3.5-5.1) mmol/L Chloride (98-107) mmol/L Carbon Dioxide (22-30) mmol/L Anion Gap mmol/L BUN (9-20) mg/dL Creatinine (0.66-1.25) mg/dL Est GFR (CKD-EPI)AfAm (>60 ml/min/1.73 sqM) Est GFR (CKD-EPI)NonAf (>60 ml/min/1.73 sqM) Glucose (74-99) mg/dL Plasma Lactic Acid Scooter (0.7-2.0) mmol/L Calcium (8.4-10.2) mg/dL Magnesium (1.6-2.3) mg/dL Total Bilirubin (0.2-1.3) mg/dL AST (17-59) U/L ALT (4-49) U/L Alkaline Phosphatase (38-126) U/L Creatine Kinase (55-170) U/L Troponin I (0.000-0.034) ng/mL NT-Pro-B Natriuret Pep pg/mL Total Protein (6.3-8.2) g/dL Albumin (3.5-5.0) g/dL Urine Color Yellow Urine Appearance Clear (Clear) Urine pH 7.5 (5.0-8.0) Ur Specific [place] 1.018 (1.001-1.035) Urine Protein Trace H (Negative) Urine Glucose (UA) Negative (Negative) Urine Ketones Negative (Negative) Urine Blood Negative (Negative) Urine Nitrite Negative (Negative) Urine Bilirubin Negative (Negative) Urine Urobilinogen 4.0 (<2.0) mg/dL Ur Leukocyte Esterase Large H (Negative) Urine RBC 8 H (0-5) /hpf Urine WBC 77 H (0-5) /hpf Ur Squamous Epith Cells <1 (0-4) /hpf Amorphous Sediment Rare H (None) /hpf Urine Mucus Occasional H (None) /hpf Influenza Type A RNA Not Detected (Not Detectd) Influenza Type B (PCR) Not Detected (Not Detectd) - EKG Data -: EKG Interpreted by Me EKG shows normal: sinus rhythm EKG Comments: Sinus tachycardia rate of 105. Interval 192 QRS duration 86 QT since QTC 340/[address]-T wave changes - Radiology Data Radiology results: report reviewed (Imaging showed no evidence of acute findings other than COPD), image reviewed Disposition Clinical Impression: Acute exacerbation of chronic obstructive pulmonary disease (COPD), Dehydration, Urinary tract infection Disposition: ADMITTED IP TO THIS HOSP Condition: Fair Referrals: Alvin Mott MD [Primary Care Provider] - 1-2 days
[2019-12-29 12:46] LABS: Basophils % (A) 1 %; Eosinophils # (A) 0.2 k/uL (0-0.7); Eosinophils % (A) 3 %; HCT 45.3 % (39.0-53.0); HGB 14.7 gm/dL (13.0-17.5); Lymphocytes # (A) 0.9 k/uL (1.0-4.8); Lymphocytes % (A) 14 %; MCH 30.6 pg (25.0-35.0); MCHC 32.5 g/dL (31.0-37.0); MCV 94.2 fL (80.0-100.0); Mean Platelet Volume 7.2; Monocytes # (A) 0.4 k/uL (0-1.0); Monocytes % (A) 7 %; Neutrophils # (A) 4.7 k/uL (1.3-7.7); Neutrophils % (A) 74 %; Platelet Count 165 k/uL (150-450); RBC 4.81 m/uL (4.30-5.90); RDW 14.8 % (11.5-15.5); WBC 6.3 k/uL (3.8-10.6)
[2019-12-29 12:55] LABS: ALT 13 U/L (4-49); AST 22 U/L (17-59); African American GFR (CKD) >90 (>60 ml/min/1.73 sqM); Albumin 3.9 g/dL (3.5-5.0); Alkaline Phosphatase 62 U/L (38-126); Anion Gap 7 mmol/L; Blood Urea Nitrogen 10 mg/dL (9-20); Carbon Dioxide 28 mmol/L (22-30); Chloride 103 mmol/L (98-107); Creatine Kinase 63 U/L (55-170); Glucose 110 mg/dL (74-99); Non-African American GFR(CKD) >90 (>60 ml/min/1.73 sqM); Potassium 4.2 mmol/L (3.5-5.1); Sodium 138 mmol/L (137-145); Total Bilirubin 1.2 mg/dL (0.2-1.3); Total Protein 6.9 g/dL (6.3-8.2)
[2019-12-29 13:01] LABS: Partial Thromboplastin Time 25.6 sec (22.0-30.0); Prothrombin Time 10.2 sec (9.0-12.0)
--- NOTE | 2019-12-29 13:20 | XR ---
EXAMINATION TYPE: XR chest 2V DATE OF EXAM: 12/29/2019 HISTORY: difficulty breathing. REFERENCE: Previous study dated 11/06/2019. FINDINGS: There is enlarged. There is mild ectasia and unfolding of the thoracic aorta. There are chr onic parenchymal changes. There is no acute lobar pneumonia or edema. Pleural spaces appear clear. I suspect underlying COPD. IMPRESSION: 1. PLEASE CORRELATE FOR COPD. 2. MILD CARDIOMEGALY.
[2019-12-29] MEDS ORDERED: SODIUM CHLORIDE 0.9% 1,000 ML IV STA ×2 (13:35)
[2019-12-29 14:31] LABS: Amorphous Sediment,Urine Rare /hpf; Appearance,Urine Clear (Clear); Bilirubin,Urine Negative (Negative); Blood,Urine Negative (Negative); Color,Urine Yellow; Glucose,Urine (UA) Negative (Negative); Ketones,Urine Negative (Negative); Leukocyte Esterase,Urine Large (Negative); Mucus,Urine Occasional /hpf; Nitrite,Urine Negative (Negative); PH, Urine 7.5 (5.0-8.0); Protein,Urine Trace (Negative); RBC,Urine 8 /hpf (0-5); Specific Gravity,Urine 1.018 (1.001-1.035); Squamous Epithelial Cell,Urine <1 /hpf (0-4); WBC,Urine 77 /hpf (0-5)
[2019-12-29] MEDS ORDERED: ARTIFICIAL TEARS-HYPROMELLOSE DROPS 15 ML BTL BOTH EYES PRN (15:29)
[2019-12-29] MEDS ORDERED: cefTRIAXone IN SWFI 1,000 MG/10 ML SYRINGE IVP STA (15:30)
[2019-12-29] MEDS: IPRATROPIUM-ALBUTEROL 3 ML NEB INHALATION SCH ×2 (16:03→20:40)
[2019-12-29] MEDS: methylPREDNISolone SOD SUCCI 125 MG/2 ML VIAL IV SCH ×2 (18:00→23:07)
[2019-12-29] MEDS: LOPERAMIDE 2 MG CAP PO SCH (20:07)
[2019-12-29] MEDS: FLUoxetine HCL 20 MG CAP PO SCH (20:08)
[2019-12-29] MEDS: METOPROLOL SUCCINATE (ER) 25 MG TAB.ER.24H PO SCH (20:08)
[2019-12-29] MEDS: LOSARTAN 25 MG TAB PO SCH (20:08)
[2019-12-29] MEDS: HEPARIN SODIUM,PORCINE 5,000 UNIT/ML 1 ML VIAL SQ SCH (20:08)
[2019-12-29 20:20] LABS: Glucose,Whole Blood 150 mg/dL (75-99)
[2019-12-29] MEDS: LORazepam 0.5 MG TAB PO PRN (20:31)
[2019-12-29] MEDS: INSULIN ASPART (NovoLOG) 100 UNIT/ML VIAL SQ SCH (20:31)
[2019-12-29] MEDS: BUDESONIDE 1 MG/2 ML NEBU INHALATION SCH (20:40)
[2019-12-29] MEDS: FORMOTEROL FUMARATE 20 MCG/2 ML NEBU INHALATION SCH (20:40)
[2019-12-29] MEDS: FUROSEMIDE 10 MG/ML 4 ML VIAL IV SCH (23:07)
[2019-12-30] MEDS: IPRATROPIUM-ALBUTEROL 3 ML NEB INHALATION SCH ×6 (01:15→19:43)
[2019-12-30] MEDS: methylPREDNISolone SOD SUCCI 125 MG/2 ML VIAL IV SCH ×4 (05:25→23:26)
[2019-12-30 07:05] LABS: Glucose,Whole Blood 163 mg/dL (75-99)
[2019-12-30] MEDS: INSULIN ASPART (NovoLOG) 100 UNIT/ML VIAL SQ SCH ×4 (07:48→20:11)
[2019-12-30] MEDS: LOSARTAN 25 MG TAB PO SCH ×2 (07:49→20:06)
[2019-12-30] MEDS: HEPARIN SODIUM,PORCINE 5,000 UNIT/ML 1 ML VIAL SQ SCH ×2 (07:49→20:06)
[2019-12-30] MEDS: FLUTICASONE 50MCG/SPRAY NASAL 16GM EA NOSTRIL SCH (07:49)
[2019-12-30] MEDS: PANTOPRAZOLE 40 MG TABLET PO SCH (07:49)
[2019-12-30] MEDS: LORATADINE 10 MG TAB PO SCH (07:49)
[2019-12-30] MEDS: FUROSEMIDE 10 MG/ML 4 ML VIAL IV SCH ×3 (07:49→23:26)
[2019-12-30] MEDS ORDERED: TIOTROPIUM BROMIDE INHALATION SCH (08:00)
[2019-12-30] MEDS: BUDESONIDE 1 MG/2 ML NEBU INHALATION SCH ×2 (08:11→19:43)
[2019-12-30] MEDS: FORMOTEROL FUMARATE 20 MCG/2 ML NEBU INHALATION SCH ×2 (08:11→19:43)
[2019-12-30] MEDS ORDERED: cefTRIAXone IN SWFI 1,000 MG/10 ML SYRINGE IVP SCH (09:00)
[2019-12-30] MEDS: ARIPiprazole 5 MG TAB PO SCH (09:02)
--- NOTE | 2019-12-30 09:12 | HP ---
HISTORY AND PHYSICAL DATE OF SERVICE: 12/29/2019 CHIEF COMPLAINT: Shortness of breath and change in mental status. HISTORY OF PRESENT ILLNESS: This is a 74-year-old gentleman with a past medical history of multiple medical problems including CHF, history of COPD, GERD, hypertension, history of anxiety, bipolar depression, being followed by Dr. Alvin Mott, now presenting and complaining of shortness of breath. The patient had episodes of incarceration in June 2019. Previous suicide attempts also. Currently, the patient is having increased shortness of breath over the last couple days, increasing confusion also. The patient did have some nebulizer treatment, but because of increased symptoms, the patient was taken to [facility] and was admitted for further evaluation and treatment. A chest x-ray done in the ER which personally reviewed by me showed possible COPD with some cardiomegaly. There is no history of fever, chills or rigors. There is no history of headache, loss of consciousness, seizures. PAST MEDICAL HISTORY: History of COPD, history of CHF, history of hypertension, history of adenoidectomy, anxiety, bipolar depression. HOME MEDICATIONS: Reviewed and include: 1. Spiriva 1 puff daily. 2. Toprol-XL 25 mg q.h.s. 3. Cozaar 25 mg p.o. b.i.d. 4. Imodium 84 mg q.h.s. 5. Xyzal 5 mg p.o. daily. 6. Lasix 40 mg q.48 hours. 7. Nasal spray 1-2 sprays daily. 8. Prozac 20 mg q.h.s. 9. Artificial tears 1 drop t.i.d. p.r.n. 10.Ventolin nebulizer 2.5 q.i.d. 11.Abilify 5 mg p.o. daily. ALLERGIES: None. FAMILY HISTORY: History of diabetes in the family. SOCIAL HISTORY: Previous history of smoking. No history of current smoking or alcohol. REVIEW OF SYSTEMS: ENT: Diminished hearing, diminished vision. CARDIOVASCULAR SYSTEM: As mentioned earlier. RESPIRATORY: As mentioned earlier. GI: No nausea. : No dysuria. NERVOUS SYSTEM: No numbness or weakness. ALLERGY/IMMUNOLOGY: No asthma or hayfever. MUSCULOSKELETAL: As mentioned earlier. NERVOUS SYSTEM: No numbness or weakness. ENDOCRINE: No history of diabetes or hypothyroidism. CONSTITUTIONAL: As mentioned earlier. DERMATOLOGY: Negative. PSYCHIATRY: As mentioned earlier. PHYSICAL EXAMINATION: Patient is alert and oriented x3. Pulse i76, blood pressure 146/90, respiration 18, temperature 98.4, pulse ox 96% on room air skin: HEENT: Conjunctivae normal. Oral mucosa moist. NECK: No jugular venous distention. No lymph node enlargement. CARDIOVASCULAR SYSTEMS: S1, S2 muffled, no S3, S4. RESPIRATION: Breathing efforts are markedly increased. Bilateral scattered rhonchi, expiratory wheezing also present. ABDOMEN: Soft, obese, nontender. No mass palpable. LEGS: No edema, no swelling. NERVOUS SYSTEM: Higher functions as mentioned earlier. Moves all 4 limbs no focal motor-sensory. LYMPHATICS: No lymph node enlargement in the neck or axillae. SKIN: No ulcers, rash, or bleeding. JOINTS: No active arthropathy. LABS: Chest x-ray personally reviewed. Otherwise, CBC within normal limits and BNP is 478 and lactic acid 2.5. ASSESSMENT: 1. Shortness of breath, multifactorial, chronic obstructive pulmonary disease acute exacerbation as well as congestive heart failure exacerbation with acute on chronic diastolic dysfunction, ejection fraction 55%-60%. 2. Acute purulent tracheobronchitis. 3. Urinary tract infection with possible sepsis, present on admission. 4. Increased plasma lactic acid. 5. Increased random blood sugar. 6. History of congestive heart failure. 7. History of gastroesophageal reflux disease. 8. History of hypertension. 9. History of adenoidectomy. 10.History of anxiety, bipolar depression. 11.Remote history of nicotine dependence. 12.Obesity with body mass index of 32.7. RECOMMENDATION: In this 74-year-old gentleman who presented with multiple complex medical issues, we will monitor the patient closely continue the current management and will optimize bronchodilators, empiric antibiotics. Would also obtain cultures IV diuretics closely follow with Pulmonary. Otherwise, guarded prognosis because of multiple complex medical issues. Further recommendations to follow. Dr. Alvin Mott will follow in the morning. MMODL / IJN: [id number] /
[2019-12-30 10:24] LABS: Basophils % (A) 0 %; Eosinophils % (A) 0 %; HCT 48.3 % (39.0-53.0); HGB 15.4 gm/dL (13.0-17.5); Lymphocytes # (A) 0.5 k/uL (1.0-4.8); Lymphocytes % (A) 7 %; MCH 30.1 pg (25.0-35.0); MCHC 31.8 g/dL (31.0-37.0); MCV 94.6 fL (80.0-100.0); Mean Platelet Volume 7.3; Monocytes # (A) 0.1 k/uL (0-1.0); Monocytes % (A) 1 %; Neutrophils # (A) 6.3 k/uL (1.3-7.7); Neutrophils % (A) 91 %; Platelet Count 195 k/uL (150-450); RDW 14.8 % (11.5-15.5); WBC 6.9 k/uL (3.8-10.6)
[2019-12-30 10:33] LABS: African American GFR (CKD) >90 (>60 ml/min/1.73 sqM); Anion Gap 13 mmol/L; Blood Urea Nitrogen 14 mg/dL (9-20); Calcium 9.6 mg/dL (8.4-10.2); Carbon Dioxide 27 mmol/L (22-30); Chloride 98 mmol/L (98-107); Glucose 161 mg/dL (74-99); Non-African American GFR(CKD) 86 (>60 ml/min/1.73 sqM); Potassium 4.2 mmol/L (3.5-5.1); Sodium 138 mmol/L (137-145)
--- NOTE | 2019-12-30 12:05 | P.PN ---
Subjective Patient resting in bed confused to time and place but did not recognize me Objective - Vital Signs Vital signs: Vital Signs Temp 97.8 F 12/30/19 05:00 Pulse 76 12/30/19 11:32 Resp 18 12/30/19 11:23 BP 134/78 12/30/19 05:00 Pulse Ox 97 12/30/19 08:11 Intake & Output 12/29/19 12/30/19 12/30/19 18:59 06:59 18:59 Intake Total 1600 550 Output Total 2300 Balance 1600 -1750 Weight 112.491 kg 112 kg Intake: Amount of Fluid Infused ( 1200 ml) Oral 400 550 Output: Urine 2300 Other: Voiding Method Urinal Bedside Commode Bedside Commode Incontinent Incontinent # Voids 1 3 # Bowel Movements 1 - Constitutional General appearance: Present: mild distress - EENT Eyes: Present: PERRLA Ears: bilateral: normal - Neck Neck: Present: normal ROM - Respiratory Respiratory: bilateral: diminished - Cardiovascular Rhythm: regular - Gastrointestinal General gastrointestinal: Present: normal bowel sounds, soft - Integumentary Integumentary: Present: normal - Neurologic Neurologic: Present: CNII-XII intact - Psychiatric Psychiatric Comment(s): Patient awake and alert confused to time place - Labs CBC & Chem 7: 12/30/19 09:43 12/30/19 09:43 Labs: Abnormal Lab Results - Last 24 Hours (Table) 12/29/19 12/29/19 12/29/19 Range/Units 12:08 12:08 12:08 Lymphocytes # 0.9 L (1.0-4.8) k/uL Glucose 110 H (74-99) mg/dL POC Glucose (mg/dL) (75-99) mg/dL Plasma Lactic Acid Scooter 2.5 H* (0.7-2.0) mmol/L Urine Protein (Negative) Ur Leukocyte Esterase (Negative) Urine RBC (0-5) /hpf Urine WBC (0-5) /hpf Amorphous Sediment (None) /hpf Urine Mucus (None) /hpf 12/29/19 12/29/19 12/30/19 Range/Units 14:14 20:03 07:03 Lymphocytes # (1.0-4.8) k/uL Glucose (74-99) mg/dL POC Glucose (mg/dL) 150 H 163 H (75-99) mg/dL Plasma Lactic Acid [place] (0.7-2.0) mmol/L Urine Protein Trace H (Negative) Ur Leukocyte Esterase Large H (Negative) Urine RBC 8 H (0-5) /hpf Urine WBC 77 H (0-5) /hpf Amorphous Sediment Rare H (None) /hpf Urine Mucus Occasional H (None) /hpf 12/30/19 12/30/19 Range/Units 09:43 09:43 Lymphocytes # 0.5 L (1.0-4.8) k/uL Glucose 161 H (74-99) mg/dL POC Glucose (mg/dL) (75-99) mg/dL Plasma Lactic Acid Scooter (0.7-2.0) mmol/L Urine Protein (Negative) Ur Leukocyte Esterase (Negative) Urine RBC (0-5) /hpf Urine WBC (0-5) /hpf Amorphous Sediment (None) /hpf Urine Mucus (None) /hpf Microbiology - Last 24 Hours (Table) 12/29/19 14:14 Urine Culture - Preliminary Urine,Voided - Imaging and Cardiology Chest x-ray: report reviewed Assessment and Plan Plan: Assessment Acute on chronic COPD with acute exacerbation Acute on chronic congestive heart failure diastolic dysfunction EF 55-60% Acute purulent tracheobronchitis Urinary tract infection with sepsis present on admission Increased plasma lactic acid GERD hypertension History of bipolar disease Remote nicotine dependence Obesity BMI 32.6 Metabolic encephalopathy secondary to urinary tract infection and COPD exacerbation Plan Patient on Rocephin Consult pulmonology regarding COPD exacerbation
[2019-12-30 12:24] LABS: Glucose,Whole Blood 145 mg/dL (75-99)
--- NOTE | 2019-12-30 12:58 | P.CNPUL ---
History of Present Illness Consult date: 12/30/19 Requesting physician: Stewart Israel Reason for consult: dyspnea, COPD Chief complaint: Altered mental status History of present illness: This is a 74-year-old gentleman follows with Dr. Israel as his primary care provider. He has a history of hypertension, BPH, anxiety/depression. He also has a history of chronic and ongoing tobacco dependence at 1 pack per day for 60 years. He is oxygen dependent mainly at nighttime. FEV1 value 55% of predicted. He follows with Dr. Mar in our office for the same. He does have obstructive sleep apnea however he had quit utilizing his CPAP. He is m aintained on Advair when available and albuterol. White count 6.9. Hemoglobin 15.4. Creatinine 0.81. He was brought into the emergency room yesterday by family members as the patient had developed confusion over the past several days. Stating some memory impairment that was quite bad. They also found him to have very foul-smelling and cloudy urine. In the past he had had similar symptoms. Previous urinary tract infections in the passive been positive for Staphylococcus, E. coli, Citrobacter freundii. Cultures this admission are pending. Chest x-ray reveals evidence of chronic obstructive pulmonary disease, mild cardiomegaly but no acute pulmonary process. He is seen today in consu ltation on the regular medical floor. He is up ambulating in the room with assistance. He knows that he is in the hospital. Unclear to the date. Where he was brought in for some confusion. He's been afebrile. Hemodynamically stable. Maintaining O2 saturations in the low 90s on 3 L/m per nasal cannula. His been initiated and DuoNeb inhalations, Pulmicort and Perforomist inhalations, IV Solu-Medrol, IV diuretics, antibiotics in the form of ceftriaxone. Review of Systems ROS unobtainable: due to mental status Past Medical History Past Medical History: Heart Failure, COPD, GERD/Reflux, Hypertension Additional Past Medical History / Comment(s): pt states sexual issue in the past would not go into deals History of Any Multi-Drug Resistant Organisms: None Reported Past Surgical History: Adenoidectomy, Prostate Surgery Additional Past Surgical History / Comment(s): left wrist surgery 12 years ago, (Pt has AMS, denies adenoidectomy) Past Anesthesia/Blood Transfusion Reactions: No Reported Reaction Past Psychological History: Anxiety, Bipolar, Depression Additional Psychological History / Comment(s): Patient caregiver states that symptoms have been worse since incarceration in June 2019, previous suicide attempt by cutting left wrist "years ago", per patient. Smoking Status: Former smoker Past Alcohol Use History: None Reported, Occasional Additional Past Alcohol Use History / Comment(s): pt states he used to drink daily but quit 6 months ago Past Drug Use History: None Reported - Past Family History Mother Family Medical History: Cancer Father Family Medical History: Diabetes Mellitus Medications and Allergies Home Medications Medication Instructions Recorded Confirmed Type Levocetirizine Dihydrochloride 5 mg PO DAILY 11/23/18 12/29/19 History [Xyzal] FLUoxetine HCL [PROzac] 20 mg PO HS 08/10/19 12/29/19 History Loperamide HCl [Imodium A-D] 4 mg PO HS 08/10/19 12/29/19 History ARIPiprazole [Abilify] 5 mg PO DAILY 08/11/19 12/29/19 History Fluticasone Nasal [place] [Flonase 2 spray EA NOSTRIL DAILY spr 08/13/19 12/29/19 Rx Nasal [place]] Albuterol Nebulized [Ventolin 2.5 mg INHALATION RT-QID 10/30/19 12/29/19 History Nebulized] Artificial Tears-Hypromellose 1 drop BOTH EYES TID PRN 10/30/19 12/29/19 History [Artificial Tear Drops] Tiotropium [place] [Spiriva 1 puff INHALATION RT-DAILY 10/30/19 12/29/19 History Respimat] Losartan [Cozaar] 25 mg PO BID #60 tab 11/04/19 12/29/19 Rx Metoprolol Succinate (ER) [Toprol 25 mg PO HS #30 tab.er.24h 11/04/19 12/29/19 Rx XL] Furosemide [Lasix] 40 mg PO Q48H 12/29/19 12/29/19 History Allergies Allergy/AdvReac Type Severity Reaction Status Date / Time No Known Allergies Allergy Verified 12/29/19 11:43 Physical Exam Vitals: Vital Signs Temp Pulse Pulse Resp BP BP Pulse Ox 12/30/19 11:32 76 12/30/19 11:23 74 18 12/30/19 08:28 76 12/30/19 08:23 76 20 12/30/19 08:22 74 12/30/19 08:11 71 20 97 12/30/19 08:00 20 12/30/19 05:02 88 12/30/19 05:00 97.8 F 79 20 134/78 91 L 12/30/19 04:49 92 12/30/19 01:25 88 12/30/19 01:15 84 12/29/19 21:09 92 12/29/19 21:00 98.4 F 84 20 148/90 95 12/29/19 20:56 88 12/29/19 20:55 88 12/29/19 20:40 87 96 12/29/19 17:54 98.4 F 76 18 146/90 96 12/29/19 17:25 20 12/29/19 17:14 97.8 F 93 25 H 144/87 96 12/29/19 16:55 93 25 H 144/87 96 12/29/19 16:41 93 25 H 144/87 96 12/29/19 16:30 93 25 H 144/87 96 12/29/19 16:12 84 18 12/29/19 16:03 82 18 12/29/19 16:00 80 21 140/85 12/29/19 15:30 81 21 142/90 12/29/19 15:00 82 24 135/100 12/29/19 14:49 83 18 135/100 95 12/29/19 14:30 82 23 144/103 12/29/19 14:10 82 23 144/103 91 L 12/29/19 14:00 9 L 12/29/19 13:30 90 23 12/29/19 13:00 90 23 92 L Intake and Output 12/29/19 12/30/19 12/30/19 22:59 06:59 14:59 Intake Total 1900 250 Output Total 2300 Balance 0 -2049 Intake: Amount of Fluid Infused ( 1200 ml) Oral 700 250 Output: Urine 2300 Other: Voiding Method Bedside Commode Bedside Commode Incontinent Incontinent # Voids 1 3 # Bowel Movements 1 Weight 112.491 kg 112 kg GENERAL EXAM: Alert, active, pleasant 74-year-old gentleman, on 3 L nasal cannula, comfortable in no apparent distress. HEAD: Normocephalic. EYES: Normal reaction of pupils, equal size. NOSE: Clear with pink turbinates. THROAT: No erythema or exudates. NECK: No masses, no JVD. CHEST: No chest wall deformity. LUNGS: Equal air entry with no crackles, wheeze, rhonchi or dullness. Diminish ed. CVS: S1 and S2 normal with no audible murmur, regular rhythm. ABDOMEN: No hepatosplenomegaly, normal bowel sounds, no guarding or rigidity. SPINE: No scoliosis or deformity SKIN: No rashes CENTRAL NERVOUS SYSTEM: No focal deficits, tone is normal in all 4 extremities. EXTREMITIES: There is no peripheral edema. No clubbing, no cyanosis. Peripheral pulses are intact. Results - Laboratory Findings CBC and BMP: 12/30/19 09:43 12/30/19 09:43 PT/INR, D-dimer PT 10.2 sec (9.0-12.0) 12/29/19 12:08 INR 1.0 (<1.2) 12/29/19 12:08 Abnormal lab findings: Abnormal Labs 12/29/19 12/29/19 12/29/19 12:08 12:08 12:08 Lymphocytes # 0.9 L Glucose 110 H POC Glucose (mg/dL) Plasma Lactic Acid Scooter 2.5 H* Urine Protein Ur Leukocyte Esterase Urine RBC Urine WBC Amorphous Sediment Urine Mucus 12/29/19 12/29/19 12/30/19 14:14 20:03 07:03 Lymphocytes # Glucose POC Glucose (mg/dL) 150 H 163 H Plasma Lactic Acid Scooter Urine Protein Trace H Ur Leukocyte Esterase Large H Urine RBC 8 H Urine WBC 77 H Amorphous Sediment Rare H Urine Mucus Occasional H 12/30/19 12/30/19 12/30/19 09:43 09:43 12:23 Lymphocytes # 0.5 L Glucose 161 H POC Glucose (mg/dL) 145 H Plasma Lactic Acid Scooter Urine Protein Ur Leukocyte Esterase Urine RBC Urine WBC Amorphous Sediment Urine Mucus - Diagnostic Findings Chest x-ray: image reviewed (No acute cardiopulmonary process) Assessment and Plan Assessment: 1 Altered mental status suspect secondary to urinary tract infection, culture pending 2 Acute exacerbation of oxygen dependent chronic obstructive pulmonary disease with no clear evidence of pneumonia 3 Acute on chronic hypoxemic respiratory failure secondary to above 4 Chronic and ongoing tobacco dependence of greater than 60 years 5 Obstructive sleep apnea, noncompliant with CPAP machine in the outpatient setting 6 Previous history of urinary tract infections with E. coli, Citrobacter freundii, enterococcus faecalis, Staphylococcus 7 Hypertension 8 Benign prosthetic hyperplasia 9 History of anxiety/depression Plan: The patient was seen and evaluated by Dr. Hunt. Chest x-ray and labs reviewed. Agree with current treatment plan including DuoNeb inhalations, Pulmicort and Perforomist inhalations, IV Solu-Medrol. Antibiotics in the form of ceftriaxone. Urine culture pending. The patient is educated regarding the importance of complete smoking cessation. NicoDerm patch will be applied. We will continue to follow and make further recommendations based on his clinical status. I, the cosigning physician, performed a history & physical examination of the patient. Lungs sounds are clear, diminished. Maintaining good O2 saturations in the 90s on 3 L/m per nasal cannula. I discussed the assessment and plan of care with my nurse practitioner, Nara Gregory. I attest to the above consultation as dictated by her. Time with Patient: Greater than 30
[2019-12-30] MEDS: NICOTINE 14MG/24HR PATCH TRANSDERM SCH (14:51)
[2019-12-30 16:44] LABS: Glucose,Whole Blood 175 mg/dL (75-99)
[2019-12-30] MEDS: LORazepam 0.5 MG TAB PO PRN (20:06)
[2019-12-30] MEDS: FLUoxetine HCL 20 MG CAP PO SCH (20:06)
[2019-12-30] MEDS: METOPROLOL SUCCINATE (ER) 25 MG TAB.ER.24H PO SCH (20:06)
[2019-12-30] MEDS: LOPERAMIDE 2 MG CAP PO SCH (20:06)
[2019-12-30 20:20] LABS: Glucose,Whole Blood 171 mg/dL (75-99)
[2019-12-31] MEDS: IPRATROPIUM-ALBUTEROL 3 ML NEB INHALATION SCH ×6 (00:14→19:31)
[2019-12-31] MEDS: methylPREDNISolone SOD SUCCI 125 MG/2 ML VIAL IV SCH ×2 (05:47→12:18)
[2019-12-31 07:14] LABS: Glucose,Whole Blood 155 mg/dL (75-99)
[2019-12-31] MEDS: BUDESONIDE 1 MG/2 ML NEBU INHALATION SCH ×2 (07:34→19:31)
[2019-12-31] MEDS: FORMOTEROL FUMARATE 20 MCG/2 ML NEBU INHALATION SCH ×2 (07:35→19:55)
[2019-12-31] MEDS: INSULIN ASPART (NovoLOG) 100 UNIT/ML VIAL SQ SCH ×4 (08:20→21:42)
[2019-12-31] MEDS: NICOTINE 14MG/24HR PATCH TRANSDERM SCH ×2 (08:20→08:24)
[2019-12-31] MEDS: FLUTICASONE 50MCG/SPRAY NASAL 16GM EA NOSTRIL SCH (08:21)
[2019-12-31] MEDS: FUROSEMIDE 10 MG/ML 4 ML VIAL IV SCH ×3 (08:21→23:10)
[2019-12-31] MEDS: ARIPiprazole 5 MG TAB PO SCH (08:21)
[2019-12-31] MEDS: PANTOPRAZOLE 40 MG TABLET PO SCH (08:21)
[2019-12-31] MEDS: LORATADINE 10 MG TAB PO SCH (08:21)
[2019-12-31] MEDS: HEPARIN SODIUM,PORCINE 5,000 UNIT/ML 1 ML VIAL SQ SCH ×2 (08:21→20:48)
[2019-12-31 08:27] LABS: Basophils % (A) 0 %; Eosinophils # (A) 0.1 k/uL (0-0.7); Eosinophils % (A) 0 %; HCT 43.3 % (39.0-53.0); Lymphocytes # (A) 0.6 k/uL (1.0-4.8); Lymphocytes % (A) 5 %; MCH 30.9 pg (25.0-35.0); MCHC 32.3 g/dL (31.0-37.0); MCV 95.7 fL (80.0-100.0); Mean Platelet Volume 7.7; Monocytes # (A) 0.4 k/uL (0-1.0); Monocytes % (A) 3 %; Neutrophils # (A) 11.4 k/uL (1.3-7.7); Neutrophils % (A) 91 %; Platelet Count 195 k/uL (150-450); RBC 4.52 m/uL (4.30-5.90); RDW 14.9 % (11.5-15.5); WBC 12.5 k/uL (3.8-10.6)
[2019-12-31] MEDS: LOSARTAN 25 MG TAB PO SCH ×2 (08:27→20:48)
[2019-12-31 08:30] LABS: Calcium 9.1 mg/dL (8.4-10.2); Potassium 4.4 mmol/L (3.5-5.1)
[2019-12-31] MEDS ORDERED: FUROSEMIDE 40 MG TAB PO SCH (09:00)
--- NOTE | 2019-12-31 12:05 | P.PN ---
Subjective Progress Note Date: 12/31/19 Principal diagnosis: Altered mental status This is a 74-year-old gentleman follows with Dr. Israel as his primary care provider. He has a history of hypertension, BPH, anxiety/depression. He also has a history of chronic and ongoing tobacco dependence at 1 pack per day for 60 years. He is oxygen dependent mainly at nighttime. FEV1 value 55% of predicted. He follows with Dr. Mar in our office for the same. He does have obstructive sleep apnea however he had quit utilizing his CPAP. He is maintained on Advair when available and albuterol. White count 6.9. Hemoglobin 15.4. Creatinine 0.81. He was brought into the emergency room yesterday by family members as the patient had developed confusion over the past several days. Stating some memory impairment that was quite bad. They also found him to have very foul-smelling and cloudy urine. In the past he had had similar symptoms. Previous urinary tract infections in the passive been positive for Staphylococcus, E. coli, Citrobacter freundii. Cultures this admission are pending. Chest x-ray reveals evidence of chronic obstructive pulmonary disease, mild cardiomegaly but no acute pulmonary process. He is seen today in consultation on the regular medical floor. He is up ambulating in the room with assistance. He knows that he is in the hospital. Unclear to the date. Where he was brought in for some confusion. He's been afebrile. Hemodynamically stable. Maintaining O2 saturations in the low 90s on 3 L/m per nasal cannula. His been initiated and DuoNeb inhalations, Pulmicort and Perforomist inhalations, IV Solu-Medrol, IV diuretics, antibiotics in the form of ceftriaxone. The patient is seen today 12/31/2019 in follow-up on the regular medical floor.He is currently awake and alert in no acute distress. Laying flat in bed. Maintaining O2 saturations in the 90s on 3 L/m per nasal cannula. He's been afebrile. Hemodynamically stable. Blood culture reveals no growth. Urine cul ture reveals no growth. White count 12.5. Hemoglobin 14.0. Creatinine 0.96. Remains on DuoNeb inhalations, Pulmicort and Perforomist inhalations, IV Solu- Medrol. Antibiotics in the form of ceftriaxone. NicoDerm patch is in place. Objective - Vital Signs Vital signs: Vital Signs Temp 97.1 F L 12/31/19 05:00 Pulse 88 12/31/19 08:29 Resp 20 12/31/19 05:00 BP 108/66 12/31/19 08:29 Pulse Ox 98 12/31/19 05:00 Intake & Output 12/30/19 12/31/19 12/31/19 18:59 06:59 18:59 Intake Total 500 200 Balance 500 200 Weight 103.5 kg Intake: Oral 500 200 Other: Voiding Method Bedside Commode Toilet Incontinent Diaper # Voids 5 1 - Exam GENERAL EXAM: Alert, active, pleasant 74-year-old gentleman, on 3 L nasal cannula, comfortable in no apparent distress. HEAD: Normocephalic. EYES: Normal reaction of pupils, equal size. NOSE: Clear with pink turbinates. THROAT: No erythema or exudates. NECK: No masses, no JVD. CHEST: No chest wall deformity. LUNGS: Equal air entry with no crackles, wheeze, rhonchi or dullness. Diminished. CVS: S1 and S2 normal with no audible murmur, regular rhythm. ABDOMEN: No hepatosplenomegaly, normal bowel sounds, no guarding or rigidity. SPINE: No scoliosis or deformity SKIN: No rashes CENTRAL NERVOUS SYSTEM: No focal deficits, tone is normal in all 4 extremities. EXTREMITIES: There is no peripheral edema. No clubbing, no cyanosis. Peripheral pulses are intact. - Labs CBC & Chem 7: 12/31/19 07:43 12/31/19 07:43 Labs: Abnormal Lab Results - Last 24 Hours (Table) 12/30/19 12/30/19 12/30/19 Range/Units 12:23 16:43 20:10 WBC (3.8-10.6) k/uL Neutrophils # (1.3-7.7) k/uL Lymphocytes # (1.0-4.8) k/uL BUN (9-20) mg/dL Glucose (74-99) mg/dL POC Glucose (mg/dL) 145 H 175 H 171 H (75-99) mg/dL 12/31/19 12/31/19 12/31/19 Range/Units 07:08 07:43 07:43 WBC 12.5 H (3.8-10.6) k/uL Neutrophils # 11.4 H (1.3-7.7) k/uL Lymphocytes # 0.6 L (1.0-4.8) k/uL BUN 28 H (9-20) mg/dL Glucose 160 H (74-99) mg/dL POC Glucose (mg/dL) 155 H (75-99) mg/dL Microbiology - Last 24 Hours (Table) 12/29/19 14:14 Urine Culture - Final Urine,Voided 12/29/19 12:08 Blood Culture - Preliminary Blood No Growth after 24 hours Assessment and Plan Assessment: 1 Altered mental status of unclear etiology, urinary culture reveals no growth. Blood cultures reveal no growth. 2 Acute exacerbation of oxygen dependent chronic obstructive pulmonary disease with no clear evidence of pneumonia 3 Acute on chronic hypoxemic respiratory failure secondary to above 4 Chronic and ongoing tobacco dependence of greater than 60 years 5 Obstructive sleep apnea, noncompliant with CPAP machine in the outpatient setting 6 Previous history of urinary tract infections with E. coli, Citrobacter freundii, enterococcus faecalis, Staphylococcus 7 Hypertension 8 Benign prosthetic hyperplasia 9 History of anxiety/depression Plan: The patient was seen and evaluated by Dr. Hunt. he is stable from the pulmonary standpoint. We'll discontinue IV Solu-Medrol. Start him on a p rednisone burst and taper at 40 mg daily for 4 days. Discharged home once cleared by medicine. Continue his home pulmonary medications. He is again educated regarding the importance of complete smoking cessation. Keep his scheduled appointment with Dr. Mar in our office to revisit the issue of utilizing his home CPAP. I, the cosigning physician, performed a history & physical examination of the patient. Lungs sounds are clear, diminished. Maintaining good O2 saturations in the 90s on 3 L/m per nasal cannula. I discussed the assessment and plan of care with my nurse practitioner, Nara Gregory. I attest to the above consultation as dictated by her.
[2019-12-31 12:09] LABS: Glucose,Whole Blood 179 mg/dL (75-99)
--- NOTE | 2019-12-31 12:40 | P.PN ---
Subjective Patient evaluated by pulmonology cleared for discharge started on oral medication. Urinary tract infection and negative culture. Patient more awake and alert hopeful discharge home in the morning Objective - Vital Signs Vital signs: Vital Signs Temp 97.1 F L 12/31/19 05:00 Pulse 72 12/31/19 12:23 Resp 20 12/31/19 05:00 BP 108/66 12/31/19 08:29 Pulse Ox 98 12/31/19 05:00 Intake & Output 12/30/19 12/31/19 12/31/19 18:59 06:59 18:59 Intake Total 500 200 Balance 500 200 Weight 103.5 kg Intake: Oral 500 200 Other: Voiding Method Bedside Commode Toilet Incontinent Diaper # Voids 5 1 - Constitutional General appearance: Present: mild distress - EENT Eyes: Present: PERRLA Ears: bilateral: normal - Neck Neck: Present: normal ROM - Respiratory Respiratory: bilateral: CTA - Cardiovascular Rhythm: regular - Gastrointestinal General gastrointestinal: Present: soft - Integumentary Integumentary: Present: normal - Neurologic Neurologic: Present: CNII-XII intact - Musculoskeletal Musculoskeletal: Present: generalized weakness - Psychiatric Psychiatric Comment(s): Patient awake and alert pleasantly confused - Labs CBC & Chem 7: 12/31/19 07:43 12/31/19 07:43 Labs: Abnormal Lab Results - Last 24 Hours (Table) 12/30/19 12/30/19 12/31/19 Range/Units 16:43 20:10 07:08 WBC (3.8-10.6) k/uL Neutrophils # (1.3-7.7) k/uL Lymphocytes # (1.0-4.8) k/uL BUN (9-20) mg/dL Glucose (74-99) mg/dL POC Glucose (mg/dL) 175 H 171 H 155 H (75-99) mg/dL 12/31/19 12/31/19 12/31/19 Range/Units 07:43 07:43 12:04 WBC 12.5 H (3.8-10.6) k/uL Neutrophils # 11.4 H (1.3-7.7) k/uL Lymphocytes # 0.6 L (1.0-4.8) k/uL BUN 28 H (9-20) mg/dL Glucose 160 H (74-99) mg/dL POC Glucose (mg/dL) 179 H (75-99) mg/dL Microbiology - Last 24 Hours (Table) 12/29/19 14:14 Urine Culture - Final Urine,Voided 12/29/19 12:08 Blood Culture - Preliminary Blood No Growth after 24 hours Assessment and Plan Plan: Assessment COPD with exacerbation Congestive heart failure chronic diastolic dysfunction ejection fraction 55-60% Chronic respiratory failure History of GERD Hypertension Sleep apnea Nicotine abuse with dependence Obesity BMI 32.7 Mental status changes metabolic encephalopathy Plan Hopeful discharge in the morning
[2019-12-31 17:30] LABS: Glucose,Whole Blood 180 mg/dL (75-99)
[2019-12-31] MEDS: FLUoxetine HCL 20 MG CAP PO SCH (20:47)
[2019-12-31] MEDS: METOPROLOL SUCCINATE (ER) 25 MG TAB.ER.24H PO SCH (20:48)
[2019-12-31] MEDS: LOPERAMIDE 2 MG CAP PO SCH (20:48)
[2019-12-31 21:02] LABS: Glucose,Whole Blood 144 mg/dL (75-99)
[2020-01-01] MEDS: IPRATROPIUM-ALBUTEROL 3 ML NEB INHALATION SCH ×4 (00:49→11:52)
[2020-01-01 07:05] LABS: Glucose,Whole Blood 104 mg/dL (75-99)
[2020-01-01] MEDS: INSULIN ASPART (NovoLOG) 100 UNIT/ML VIAL SQ SCH (07:16)
[2020-01-01] MEDS: NICOTINE 14MG/24HR PATCH TRANSDERM SCH ×2 (08:09→08:15)
[2020-01-01] MEDS: ARIPiprazole 5 MG TAB PO SCH (08:09)
[2020-01-01] MEDS: FLUTICASONE 50MCG/SPRAY NASAL 16GM EA NOSTRIL SCH (08:10)
[2020-01-01] MEDS: PANTOPRAZOLE 40 MG TABLET PO SCH (08:10)
[2020-01-01] MEDS: LOSARTAN 25 MG TAB PO SCH (08:10)
[2020-01-01] MEDS: LORATADINE 10 MG TAB PO SCH (08:10)
[2020-01-01] MEDS: FUROSEMIDE 10 MG/ML 4 ML VIAL IV SCH (08:10)
[2020-01-01] MEDS: HEPARIN SODIUM,PORCINE 5,000 UNIT/ML 1 ML VIAL SQ SCH (08:10)
[2020-01-01] MEDS: FORMOTEROL FUMARATE 20 MCG/2 ML NEBU INHALATION SCH (08:46)
[2020-01-01] MEDS: BUDESONIDE 1 MG/2 ML NEBU INHALATION SCH (08:46)
[2020-01-01] MEDS ORDERED: predniSONE 20 MG TAB PO SCH (09:00)
[2020-01-01 09:17] LABS: Basophils % (A) 0 %; Eosinophils % (A) 0 %; HCT 42.4 % (39.0-53.0); HGB 13.1 gm/dL (13.0-17.5); Lymphocytes # (A) 1.1 k/uL (1.0-4.8); Lymphocytes % (A) 11 %; MCH 29.5 pg (25.0-35.0); Mean Platelet Volume 7.5; Monocytes # (A) 0.5 k/uL (0-1.0); Monocytes % (A) 5 %; Neutrophils # (A) 8.5 k/uL (1.3-7.7); Neutrophils % (A) 82 %; Platelet Count 199 k/uL (150-450); RBC 4.46 m/uL (4.30-5.90); WBC 10.3 k/uL (3.8-10.6)
[2020-01-01 09:49] LABS: Calcium 8.8 mg/dL (8.4-10.2); Potassium 3.7 mmol/L (3.5-5.1)
[2020-01-01 11:47] LABS: Glucose,Whole Blood 142 mg/dL (75-99)
--- NOTE | 2020-01-01 12:08 | P.DS ---
Providers Date of admission: 12/31/19 08:36 Expected date of discharge: 01/01/20 Attending physician: Alvin Mott Consults: 12/30/19 11:57 Consult Physician Urgent Consulting Provider: Alyssa Mar Consult Reason/Comments: copd exacerbation Do you want consulting provider notified?: Yes Primary care physician: Alvin M[facility] Course: 68 sexual male presented to the emergency room with complaints of increasing shortness breath and confusion. Patient was evaluated by pulmonology and cleared for discharge. Patient had baseline at this time ready for discharge Assessment COPD with acute exacerbation Acute on chronic congestive heart failure with chronic diastolic dysfunction ejection fraction 55-60% Chronic respiratory failure GERD Hypertension Sleep apnea History of anxiety/bipolar depression Nicotine abuse Obesity with BMI of 32.7 Metabolic encephalopathy Plan Follow-up with family physician Dr. Alvin Mott and pulmonology Patient Condition at Discharge: Fair Plan - Discharge Summary New Discharge Prescriptions: New Ipratropium-Albuterol Nebulize [Duoneb 0.5 mg-3 mg/3 ml Soln] 3 ml INHALATION RT-Q4H #120 ml Nicotine 14Mg/24Hr Patch [Habitrol] 1 patch TRANSDERM DAILY #28 patch predniSONE 10 mg PO DAILY #40 tab Budesonide [Pulmicort] 1 mg INHALATION RT-BID #1 ml Continue Levocetirizine Dihydrochloride [Xyzal] 5 mg PO DAILY FLUoxetine HCL [PROzac] 20 mg PO HS Loperamide HCl [Imodium A-D] 4 mg PO HS ARIPiprazole [Abilify] 5 mg PO DAILY Fluticasone Nasal [place] [Flonase Nasal [place]] 2 spray EA NOSTRIL DAILY spr Artificial Tears-Hypromellose [Artificial Tear Drops] 1 drop BOTH EYES TID PRN PRN Reason: Dry Eye(S)/ITCH Losartan [Cozaar] 25 mg PO BID #60 tab Metoprolol Succinate (ER) [Toprol XL] 25 mg PO HS #30 tab.er.24h Furosemide [Lasix] 40 mg PO Q48H Discontinued Albuterol Nebulized [Ventolin Nebulized] 2.5 mg INHALATION RT-QID Discharge Medication List Levocetirizine Dihydrochloride [Xyzal] 5 mg PO DAILY 11/23/18 [History] FLUoxetine HCL [PROzac] 20 mg PO HS 08/10/19 [History] Loperamide HCl [Imodium A-D] 4 mg PO HS 08/10/19 [History] ARIPiprazole [Abilify] 5 mg PO DAILY 08/11/19 [History] Fluticasone Nasal [place] [Flonase Nasal [place]] 2 spray EA NOSTRIL DAILY spr 08/13/19 [Rx] Artificial Tears-Hypromellose [Artificial Tear Drops] 1 drop BOTH EYES TID PRN 10/30/19 [History] Losartan [Cozaar] 25 mg PO BID #60 tab 11/04/19 [Rx] Metoprolol Succinate (ER) [Toprol XL] 25 mg PO HS #30 tab.er.24h 11/04/19 [Rx] Furosemide [Lasix] 40 mg PO Q48H 12/29/19 [History] Budesonide [Pulmicort] 1 mg INHALATION RT-BID #1 ml 01/01/20 [Rx] Ipratropium-Albuterol Nebulize [Duoneb 0.5 mg-3 mg/3 ml Soln] 3 ml INHALATION RT-Q4H #120 ml 01/01/20 [Rx] Nicotine 14Mg/24Hr Patch [Habitrol] 1 patch TRANSDERM DAILY #28 patch 01/01/20 [Rx] predniSONE 10 mg PO DAILY #40 tab 01/01/20 [Rx] Follow up Appointment(s)/Referral(s): Alvin Mott MD [Primary Care Provider] - 1-2 days Minor Hunt MD [STAFF PHYSICIAN] - 1 Week [facility], [NON-STAFF] - Patient Instructions/Handouts: Urinary Tract Infection in Men (DC) Activity/Diet/Wound Care/Special Instructions: No smoking, cessation information provided. Up with assist, fall precautions.
--- NOTE | 2020-01-01 13:09 | P.PN ---
Subjective Progress Note Date: 01/01/20 Principal diagnosis: Acute mental status change and acute exacerbation of COPD. This is a 74-year-old gentleman follows with Dr. Israel as his primary care provider. He has a history of hypertension, BPH, anxiety/depression. He also has a history of chronic and ongoing tobacco dependence at 1 pack per day for 60 years. He is oxygen dependent mainly at nighttime. FEV1 value 55% of predicted. He follows with Dr. aMr in our office for the same. He does have obstructive sleep apnea however he had quit utilizing his CPAP. He is maintained on Advair when available and albuterol. White count 6.9. Hemoglobin 15.4. Creatinine 0.81. He was brought into the emergency room yesterday by family members as the patient had developed confusion over the past several days. Stating some memory impairment that was quite bad. They also found him to have very foul-smelling and cloudy urine. In the past he had had similar symptoms. Previous urinary tract infections in the passive been positive for Staphylococcus, E. coli, Citrobacter freundii. Cultures this admission are pending. Chest x-ray reveals evidence of chronic obstructive pulmonary disease, mild cardiomegaly but no acute pulmonary process. He is seen today in consultation on the regular medical floor. He is up ambulating in the room with assistance. He knows that he is in the hospital. Unclear to the date. Where he was brought in for some confusion. He's been afebrile. Hemodynamically stable. Maintaining O2 saturations in the low 90s on 3 L/m per nasal cannula. His been initiated and DuoNeb inhalations, Pulmicort and Perforomist inhalations, IV Solu-Medrol, IV diuretics, antibiotics in the form of ceftriaxone. The patient is seen today 12/31/2019 in follow-up on the regular medical f leora.He is currently awake and alert in no acute distress. Laying flat in bed. Maintaining O2 saturations in the 90s on 3 L/m per nasal cannula. He's been afebrile. Hemodynamically stable. Blood culture reveals no growth. Urine culture reveals no growth. White count 12.5. Hemoglobin 14.0. Creatinine 0.96. Remains on DuoNeb inhalations, Pulmicort and Perforomist inhalations, IV Solu- Medrol. Antibiotics in the form of ceftriaxone. NicoDerm patch is in place. Reevaluated today on 01/01/2020, patient is doing well, asymptomatic, denies any cough no wheezing no shortness of breath, seems to be definitely less confused and probably back to his baseline. Objective - Vital Signs Vital signs: Vital Signs Temp 97.6 F 01/01/20 06:05 Pulse 76 01/01/20 12:01 Resp 16 01/01/20 06:05 BP 143/79 01/01/20 06:05 Pulse Ox 97 01/01/20 06:05 Intake & Output 12/31/19 01/01/20 01/01/20 18:59 06:59 18:59 Intake Total 440 240 Balance 440 240 Weight 110.8 kg Intake: Oral 440 240 Other: Voiding Method Toilet Toilet Toilet Diaper # Voids 4 5 - Exam Physical Exam revealed a 74-year-old white male obese in no distress. Head: Atraumatic, normocephalic. HEENT:[Neck is supple.] [No neck masses.] [No thyromegaly.] [No JVD.] Chest: [Clear throughout, no crackles, no rhonchi, no wheezes.] Cardiac Exam: [Normal S1 and S2, no S3 gallop, no murmur.] Abdomen: [Soft, nontender, no megaly, no rebound, no guarding, normal bowel sounds.] Extremities: [No clubbing, no edema, no cyanosis.] Neurological Exam: [No focal neurologic deficit.] Alert oriented 3. Skin: Normal skin turgor, no rashes. Psychiatric: Normal mood affect and normal mental status examination. - Labs CBC & Chem 7: 01/01/20 08:03 01/01/20 08:03 Labs: Abnormal Lab Results - Last 24 Hours (Table) 12/31/19 12/31/19 01/01/20 Range/Units 17:16 21:00 07:03 Neutrophils # (1.3-7.7) k/uL Carbon Dioxide (22-30) mmol/L BUN (9-20) mg/dL POC Glucose (mg/dL) 180 H 144 H 104 H (75-99) mg/dL 01/01/20 01/01/20 01/01/20 Range/Units 08:03 08:03 11:45 Neutrophils # 8.5 H (1.3-7.7) k/uL Carbon Dioxide 32 H (22-30) mmol/L BUN 40 H (9-20) mg/dL POC Glucose (mg/dL) 142 H (75-99) mg/dL Microbiology - Last 24 Hours (Table) 12/29/19 12:08 Blood Culture - Preliminary Blood No Growth after 48 hours Assessment and Plan Assessment: Impression: 1 Altered mental status of unclear etiology, negative blood cultures and negative urine cultures. 2 Acute exacerbation of oxygen dependent chronic obstructive pulmonary disease with no clear evidence of pneumonia 3 Acute on chronic hypoxemic respiratory failure secondary to above 4 Chronic and ongoing tobacco dependence of greater than 60 years 5 Obstructive sleep apnea, noncompliant with CPAP machine in the outpatient setting 6 Previous history of urinary tract infections with E. coli, Citrobacter freundii, enterococcus faecalis, Staphylococcus 7 Hypertension 8 Benign prosthetic hyperplasia 9 History of anxiety/depression Recommendation: Resume outpatient home meds, Placed on prednisone burst and taper over the next few days, Clear for discharge planning today if agreeable with another physicians. Follow-up with Dr. Mar on outpatient basis. Time with Patient: Less than 30
[2020-01-01 14:17] VITALS: BP 141/78; PULSE 80; RESP 17; TEMP 97.8
== END 2020-01-01 16:26 | disposition home health service (06) | DRG 291 ==
LOC: EC 11:34 → 6NMEDSUR 15:44 → OBSVTOIN 12-31 08:36
PROVIDERS: ADMIT Family Medicine; ATTEND Family Medicine
DX: I11.0 Hypertensive heart disease with heart failure (principal); G93.41 Metabolic encephalopathy; J96.21 Acute and chronic respiratory failure with hypoxia; J44.1 Chronic obstructive pulmonary disease with (acute) exacerbation; F31.30 Bipolar disorder, current episode depressed, mild or moderate severity, unspecified; I50.33 Acute on chronic diastolic (congestive) heart failure; F41.9 Anxiety disorder, unspecified; Z68.32 Body mass index [BMI] 32.0-32.9, adult; E66.9 Obesity, unspecified; K21.9 Gastro-esophageal reflux disease without esophagitis; F17.200 Nicotine dependence, unspecified, uncomplicated; Z91.19 Patient's noncompliance with other medical treatment and regimen; G47.33 Obstructive sleep apnea (adult) (pediatric); Z79.899 Other long term (current) drug therapy; Z83.3 Family history of diabetes mellitus; Z87.440 Personal history of urinary (tract) infections; Z91.5 Personal history of self-harm; Z99.81 Dependence on supplemental oxygen
CPT/HCPCS: 36415; 71046; 80048; 80053; 81001; 82550; 83605; 83735; 83880; 84484; 85025; 85610; 85730; 87040; 87086; 87502; 93005; 94640; 94760; 96361; 96374; 99285

== ENCOUNTER 2020-01-21 18:57 | Inpatient (IN) | payer MEDICARE ==
[2020-01-21] MEDS ORDERED: methylPREDNISolone SOD SUCCI 125 MG/2 ML VIAL IV STA (19:37)
[2020-01-21] MEDS ORDERED: IPRATROPIUM 0.5 MG/2.5 ML NEBU INHALATION STA (19:37)
[2020-01-21] MEDS ORDERED: ALBUTEROL NEBULIZED 2.5 MG/3 ML INHALATION STA (19:37)
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
--- NOTE | 2020-01-21 20:29 | XR ---
EXAMINATION TYPE: XR chest 2V DATE OF EXAM: 01/21/2020 COMPARISON: December 29, 2019 HISTORY: Difficulty breathing TECHNIQUE: FINDINGS: There is no heart failure. There is some coarsening of the interstitial markings. There is probably some mild infiltrate left midlung. The other lung cevallos are clear of consolidation. There i s no pleural effusion. IMPRESSION: No heart failure. Mild pulmonary fibrosis. There is possible new mild infiltrate left mid lung compared to last exam..
[2020-01-21 20:37] LABS: Basophils % (A) 0 %; Eosinophils # (A) 0.3 k/uL (0-0.7); Eosinophils % (A) 4 %; HCT 43.6 % (39.0-53.0); HGB 14.3 gm/dL (13.0-17.5); Lymphocytes # (A) 0.9 k/uL (1.0-4.8); Lymphocytes % (A) 13 %; MCH 30.5 pg (25.0-35.0); MCHC 32.8 g/dL (31.0-37.0); Mean Platelet Volume 6.9; Monocytes # (A) 0.4 k/uL (0-1.0); Monocytes % (A) 5 %; Neutrophils # (A) 5.1 k/uL (1.3-7.7); Neutrophils % (A) 75 %; Platelet Count 240 k/uL (150-450); RBC 4.68 m/uL (4.30-5.90); RDW 14.2 % (11.5-15.5); WBC 6.8 k/uL (3.8-10.6)
[2020-01-21 20:40] LABS: Appearance,Urine Clear (Clear); Bacteria,Urine Rare /hpf; Bilirubin,Urine Negative (Negative); Blood,Urine Negative (Negative); Color,Urine Light Yellow; Glucose,Urine (UA) Negative (Negative); Hyaline Casts,Urine 14 /lpf (0-2); Ketones,Urine Negative (Negative); Leukocyte Esterase,Urine Small (Negative); Mucus,Urine Rare /hpf; Nitrite,Urine Negative (Negative); Protein,Urine Negative (Negative); RBC,Urine 1 /hpf (0-5); Specific Gravity,Urine 1.011 (1.001-1.035); Squamous Epithelial Cell,Urine <1 /hpf (0-4); Urobilinogen,Urine <2.0 mg/dL (<2.0); WBC,Urine 4 /hpf (0-5)
[2020-01-21 20:49] LABS: Partial Thromboplastin Time 24.8 sec (22.0-30.0); Prothrombin Time 10.6 sec (9.0-12.0)
[2020-01-21 20:52] LABS: ALT 37 U/L (4-49); AST 30 U/L (17-59); African American GFR (CKD) >90 (>60 ml/min/1.73 sqM); Albumin 3.6 g/dL (3.5-5.0); Alkaline Phosphatase 78 U/L (38-126); Anion Gap 6 mmol/L; Blood Urea Nitrogen 21 mg/dL (9-20); Calcium 8.7 mg/dL (8.4-10.2); Carbon Dioxide 31 mmol/L (22-30); Chloride 102 mmol/L (98-107); Glucose 110 mg/dL (74-99); Magnesium 2.1 mg/dL (1.6-2.3); Non-African American GFR(CKD) 79 (>60 ml/min/1.73 sqM); Potassium 4.3 mmol/L (3.5-5.1); Sodium 139 mmol/L (137-145); Total Bilirubin 0.7 mg/dL (0.2-1.3); Total Protein 6.6 g/dL (6.3-8.2)
[2020-01-21] MEDS ORDERED: IPRATROPIUM-ALBUTEROL 3 ML NEB INHALATION STA (21:41)
[2020-01-21] MEDS ORDERED: NITROGLYCERIN SL TABS 0.4 MG TAB SUBLINGUAL PRN (21:41)
[2020-01-21] MEDS ORDERED: LEVOFLOXACIN 750MG-D5W PMX 750 MG in DEXTROSE/WATER 1 150ML.BAG IVPB STA (21:41)
[2020-01-21] MEDS ORDERED: PNEUMONIA PROTOCOL UTILIZED 1 EACH MISC PO PRN (21:41)
[2020-01-21] MEDS ORDERED: PIPERACILLIN-TAZOBACTAM 3.375 GM in SODIUM CHLORIDE 0.9% 100 ML IVPB STA (21:41)
[2020-01-21] MEDS ORDERED: MORPHINE SULFATE 4 MG/ML SYRINGE IV PRN (21:41)
[2020-01-21] MEDS ORDERED: IPRATROPIUM-ALBUTEROL 3 ML NEB INHALATION PRN (21:41)
[2020-01-21] MEDS: SODIUM CHLORIDE 0.9% 1,000 ML IV SCH (23:54)
[2020-01-22 03:05] LABS: Cholesterol 164 mg/dL (<200); HDL Cholesterol 47 mg/dL (40-60); LDL Cholesterol,Calculated 106 mg/dL (0-99); Triglycerides 53 mg/dL (<150)
[2020-01-22] MEDS: PIPERACILLIN-TAZOBACTAM 3.375 GM in SODIUM CHLORIDE 0.9% 100 ML IVPB SCH ×3 (06:14→22:25)
[2020-01-22] MEDS ORDERED: ALBUTEROL NEBULIZED 2.5 MG/3 ML INHALATION SCH (08:00)
[2020-01-22] MEDS ORDERED: ENOXAPARIN 40 MG/0.4 ML SYRINGE SQ SCH (09:00)
[2020-01-22] MEDS ORDERED: ASPIRIN 325 MG TAB PO SCH (09:00)
--- NOTE | 2020-01-22 09:16 | XR ---
EXAMINATION TYPE: XR chest 2V DATE OF EXAM: 01/22/2020 COMPARISON: Prior chest x-ray 01/21/2020 CT 08/10/2019, CT chest 02/21/2017 HISTORY: Pneumonia TECHNIQUE: Frontal and lateral views of the chest are obtained. FINDINGS: There are overlying leads, artifacts present. No evident pneumothorax or pleural effusion. Interstitium is somewhat increased. Question some perihilar density on the right. Heart is enlarged and stable. Thoracic spondylosis is present, anterior flowing osteophytes could be indicative of diff use idiopathic skeletal hyperostosis. There is underlying emphysema. Old healed posterior left rib fr actures are noted. IMPRESSION: Rotated exam. Suspect some underlying interstitial lung disease, correlate to exclude in terstitial edema. Rotated exam.
--- NOTE | 2020-01-22 09:19 | P.CRDCN ---
History of Present Illness Consult date: 01/22/20 Requesting physician: Alvin Mott Chief complaint: Shortness of breath History of present illness: This is a 74-year-old gentleman, most of the history was obtained from the medical record, patient is a poor historian. He has a documented history of hypertension, COPD, GERD, bipolar depression, nicotine dependence, chronic urinary tract infections, presented to the hospital after 2 days of progressively worsening shortness of breath. Chest x-ray did not reveal any evidence of congestive heart failure. Mild pulmonary fibrosis. Possible new mild infiltrate. EKG shows a normal sinus rhythm with PACs. Blood pressure 114/70 with a heart rate of 70, 94% on 4 L of oxygen, this morning he is 89% on 5 L. White blood cell count 6.8, hemoglobin 14.3, platelet count 240. Sodium 139, potassium 4.3, BUN 21, creatinine 0.9. Troponin 0.04, 0.05, 0.03. BNP level 748. Influenza A and B-. Cardiology consultation was requested because of abnormal troponins. Past Medical History Past Medical History: Heart Failure, COPD, GERD/Reflux, Hypertension Additional Past Medical History / Comment(s): pt states sexual issue in the past would not go into deals History of Any Multi-Drug Resistant Organisms: None Reported Past Surgical History: Adenoidectomy, Prostate Surgery Additional Past Surgical History / Comment(s): left wrist surgery 12 years ago Past Anesthesia/Blood Transfusion Reactions: No Reported Reaction Past Psychological History: Anxiety, Bipolar, Depression Additional Psychological History / Comment(s): Patient caregiver states that symptoms have been worse since incarceration in June 2019, previous suicide attempt by cutting left wrist "years ago", per patient. no vocalization of any feelings this way. Smoking Status: Never smoker Past Alcohol Use History: None Reported, Occasional Additional Past Alcohol Use History / Comment(s): pt states he used to drink daily but quit 6 months ago Past Drug Use History: None Reported - Past Family History Mother Family Medical History: Cancer Father Family Medical History: Diabetes Mellitus Medications and Allergies Home Medications Medication Instructions Recorded Confirmed Type Levocetirizine Dihydrochloride 5 mg PO DAILY 11/23/18 01/21/20 History [Xyzal] FLUoxetine HCL [PROzac] 20 mg PO HS 08/10/19 01/21/20 History Loperamide HCl [Imodium A-D] 4 mg PO HS 08/10/19 01/21/20 History ARIPiprazole [Abilify] 5 mg PO DAILY 08/11/19 01/21/20 History Fluticasone Nasal [place] [Flonase 2 spray EA NOSTRIL DAILY spr 08/13/19 01/21/20 Rx Nasal [place]] Artificial Tears-Hypromellose 1 drop BOTH EYES TID PRN 10/30/19 01/21/20 History [Artificial Tear Drops] Losartan [Cozaar] 25 mg PO BID #60 tab 11/04/19 01/21/20 Rx Metoprolol Succinate (ER) [Toprol 25 mg PO HS #30 tab.er.24h 11/04/19 01/21/20 Rx XL] Furosemide [Lasix] 40 mg PO Q48H 12/29/19 01/21/20 History Budesonide [Pulmicort] 1 mg INHALATION RT-BID #1 ml 01/01/20 01/21/20 Rx Ipratropium-Albuterol Nebulize 3 ml INHALATION RT-QID 01/21/20 01/21/20 History [Duoneb 0.5 mg-3 mg/3 ml Soln] Allergies Allergy/AdvReac Type Severity Reaction Status Date / Time No Known Allergies Allergy Verified 01/21/20 21:38 Physical Exam Vitals: Vital Signs Temp Pulse Pulse Resp BP BP Pulse Ox 01/22/20 07:38 73 01/22/20 07:24 65 89 L 01/22/20 04:00 75 20 114/70 94 L 01/21/20 22:20 96 20 130/84 92 L 01/21/20 22:11 91 18 01/21/20 22:01 87 18 01/21/20 21:55 98.2 F 102 H 25 H 138/86 98 01/21/20 21:40 85 111/73 92 L 01/21/20 20:40 104 H 95/67 90 L 01/21/20 20:36 98 21 95/67 90 L 01/21/20 20:10 94 106/73 96 01/21/20 20:04 96 16 01/21/20 19:54 92 16 01/21/20 19:40 96 95/64 97 01/21/20 19:30 19 94 L 01/21/20 19:00 98.6 F 105 H 18 111/68 81 L Intake and Output 01/21/20 01/22/20 01/22/20 22:59 06:59 14:59 Intake Total 0 Balance 0 Intake: Oral 0 Other: Voiding Method Urinal # Voids 1 Weight 110.223 kg 111.7 kg GENERAL EXAM: Alert, active, pleasant 74-year-old gentleman, on 3 L nasal cannula, comfortable in no apparent distress. HEAD: Normocephalic. EYES: Normal reaction of pupils, equal size. NOSE: Clear with pink turbinates. THROAT: No erythema or exudates. NECK: No masses, no JVD. CHEST: No chest wall deformity. LUNGS: Equal air entry with no crackles, wheeze, rhonchi or dullness. Diminished. CVS: S1 and S2 normal with no audible murmur, regular rhythm. ABDOMEN: No hepatosplenomegaly, normal bowel sounds, no guarding or rigidity. SPINE: No scoliosis or deformity SKIN: No rashes CENTRAL NERVOUS SYSTEM: No focal deficits, tone is normal in all 4 extremities. EXTREMITIES: There is no peripheral edema. No clubbing, no cyanosis. Peripheral pulses are intact. Results 01/21/20 20:25 01/21/20 20:25 Cardiac Enzymes 01/21/20 01/21/20 01/22/20 Range/Units 20:25 20: 02:27 AST 30 (17-59) U/L Troponin I 0.040 H* 0.052 H* (0.000-0.034) ng/mL 01/22/20 Range/Units 08:04 AST (17-59) U/L Troponin I 0.033 (0.000-0.034) ng/mL Coagulation 01/21/20 Range/Units 20:25 PT 10.6 (9.0-12.0) sec APTT 24.8 (22.0-30.0) sec Lipids 01/22/20 Range/Units 02:27 Triglycerides 53 (<150) mg/dL Cholesterol 164 (<200) mg/dL HDL Cholesterol 47 (40-60) mg/dL CBC 01/21/20 Range/Units 20:25 WBC 6.8 (3.8-10.6) k/uL RBC 4.68 (4.30-5.90) m/uL Hgb 14.3 (13.0-17.5) gm/dL Hct 43.6 (39.0-53.0) % Plt Count 240 (150-450) k/uL Comprehensive Metabolic Panel 01/21/20 Range/Units 20:25 Sodium 139 (137-145) mmol/L Potassium 4.3 (3.5-5.1) mmol/L Chloride 102 (98-107) mmol/L Carbon Dioxide 31 H (22-30) mmol/L BUN 21 H (9-20) mg/dL Creatinine 0.94 (0.66-1.25) mg/dL Glucose 110 H (74-99) mg/dL Calcium 8.7 (8.4-10.2) mg/dL AST 30 (17-59) U/L ALT 37 (4-49) U/L Alkaline Phosphatase 78 (38-126) U/L Total Protein 6.6 (6.3-8.2) g/dL Albumin 3.6 (3.5-5.0) g/dL Current Medications Generic Name Dose Route Start Last Admin Trade Name Freq PRN Reason Stop Dose Admin Albuterol Sulfate 2.5 mg 01/22/20 08:00 01/22/20 07:32 Ventolin Nebulized INHALATION Not Given RT-QID ALIREZA Albuterol/Ipratropium 3 ml 01/21/20 21:41 01/22/20 07:23 Duoneb 0.5 Mg-3 Mg/3 Ml Soln INHALATION 3 ml RT-Q4H PRN Administration shortness of breath Aspirin 325 mg 01/22/20 09:00 Aspirin PO DAILY [facility] Enoxaparin Sodium 40 mg 01/22/20 09:00 Lovenox SQ DAILY ALIREZA Sodium Chloride 1,000 mls @ 100 mls/hr 01/21/20 21:45 01/21/20 23:54 Saline 0.9% IV 100 mls/hr .Q10H ALIREZA Administration Levofloxacin 750 mg/ IV 150 mls @ 100 mls/hr 01/22/20 21:45 Solution IVPB 02/03/20 21:46 Q24H ALIREZA Piperacillin Sod/Tazobactam 100 mls @ 25 mls/hr 01/22/20 06:00 01/22/20 06:14 Sod 3.375 gm/ Sodium Chloride IVPB 25 mls/hr Q8H ALIREZA Administration Miscellaneous Information 1 each 01/21/20 21:41 Pneumonia Protocol Utilized PO ONCE PRN Per Protocol Morphine Sulfate 4 mg 01/21/20 21:41 Morphine Sulfate (Inj) IV Q4HR PRN Chest Pain Nitroglycerin 0.4 mg 01/21/20 21:41 Nitrostat SUBLINGUAL Q5M PRN Chest Pain Intake and Output 01/21/20 01/22/20 01/22/20 22:59 06:59 14:59 Intake Total 0 Balance 0 Intake: Oral 0 Other: Voiding Method Urinal # Voids 1 Weight 110.223 kg 111.7 kg 01/21/20 20:25 01/21/20 20:25 EKG Interpretations (text) EKG shows a normal sinus rhythm with PACs and PVCs Assessment and Plan Plan: Assessment and plan #1 exacerbation of COPD, possible pneumonia #2 abnormality in troponin with no significant rise and fall pattern, not consistent with acute coronary syndrome. Could be secondary to hypoxia. #3 chronic ongoing nicotine dependence #4 obstructive sleep apnea #5 chronic UTI #6 hypertension #7 anxiety and depression #8 bipolar disorder Plan Patient had an echocardiogram with Doppler study performed in October which revealed an ejection fraction of 55-60%. We will repeat an echo, a limited study only to assess LV function. Decrease aspirin 81 mg daily. DNP note has been reviewed, I agree with a documented findings and plan of care. Patient was seen and examined.
--- NOTE | 2020-01-22 10:35 | P.CNPUL ---
History of Present Illness Consult date: 01/22/20 Reason for consult: dyspnea, COPD, hypoxemia, pulmonary fibrosis, abnormal CXR/CT History of present illness: 74-year-old white male patient of Dr. Alvin Mott with past medical history of COPD on home oxygen, chronic congestive heart failure, recurrent urinary tract infections, bipolar disorder, hypertension, GERD/reflux, prostate disorder, ob structive sleep apnea noncompliant with CPAP machine, but is supposed to wear her CPAP with a pressure of 8 cm of water, morbid obesity, former smoker who presented to the emergency department on O2 2019 with a family member for evaluation of increased shortness of breath for 2 days, with progressive worsening. Denied any fever or chills, did not have any cough or phlegm production, no chest pain, no palpitations, no nausea vomiting or diarrhea. Most of the history was obtain from the chart, patient is currently lethargic but arousable, he is able to provide a limited verbal responses, he is falling back asleep, does not appear to be in any acute distress, on presentation his pulse ox was 81% on 4 L, he is currently on FiO2 of 6 L with a pulse ox of 89%, he is afebrile, hemodynamically stable. Chest x-ray did not show any evidence of heart failure, it did show some coarsening of the interstitial markings, mild pulmonary fibrosis and the possibility of new mild infiltrate in the left midlung is noted. Lab work showed white blood cell count of 6.8, hemoglobin of 14.3, platelet count of 240, sodium of 139, potassium is 4.3, BUN of 21 creatinine 0.9. Troponins were 0.04, 0.05, 0.03, proBNP level was 748, influenza A and B screen were negative. EKG showed a normal sinus rhythm with PACs. Urinalysis showed small amount of leuks, but no significant amount of white blood cells, negative for urinary tract infection. Patient was placed on a combination of Levaquin and Zosyn, and repeat chest x-ray today shows somewhat increased interstitium Review of Systems All systems: negative Constitutional: Denies chills, Denies fever Eyes: denies blurred vision, denies pain Ears, nose, mouth and throat: Denies headache, Denies sore throat Cardiovascular: Denies chest pain, Denies shortness of breath Respiratory: Reports dyspnea, Reports home oxygen, Reports respiratory infections, Denies cough Gastrointestinal: Denies abdominal pain, Denies diarrhea, Denies nausea, Denies vomiting Musculoskeletal: Denies myalgias Integumentary: Denies pruritus, Denies rash Neurological: Denies numbness, Denies weakness Psychiatric: Denies anxiety, Denies depression Endocrine: Denies fatigue, Denies weight change Past Medical History Past Medical History: Heart Failure, COPD, GERD/Reflux, Hypertension Additional Past Medical History / Comment(s): pt states sexual issue in the past would not go into deals History of Any Multi-Drug Resistant Organisms: None Reported Past Surgical History: Adenoidectomy, Prostate Surgery Additional Past Surgical History / Comment(s): left wrist surgery 12 years ago Past Anesthesia/Blood Transfusion Reactions: No Reported Reaction Past Psychological History: Anxiety, Bipolar, Depression Additional Psychological History / Comment(s): Patient caregiver states that symptoms have been worse since incarceration in June 2019, previous suicide attempt by cutting left wrist "years ago", per patient. no vocalization of any feelings this way. Smoking Status: Never smoker Past Alcohol Use History: None Reported, Occasional Additional Past Alcohol Use History / Comment(s): pt states he used to drink daily but quit 6 months ago Past Drug Use History: None Reported - Past Family History Mother Family Medical History: Cancer Father Family Medical History: Diabetes Mellitus Medications and Allergies Home Medications Medication Instructions Recorded Confirmed Type Levocetirizine Dihydrochloride 5 mg PO DAILY 11/23/18 01/21/20 History [Xyzal] FLUoxetine HCL [PROzac] 20 mg PO HS 08/10/19 01/21/20 History Loperamide HCl [Imodium A-D] 4 mg PO HS 08/10/19 01/21/20 History ARIPiprazole [Abilify] 5 mg PO DAILY 08/11/19 01/21/20 History Fluticasone Nasal [place] [Flonase 2 spray EA NOSTRIL DAILY spr 08/13/19 01/21/20 Rx Nasal [place]] Artificial Tears-Hypromellose 1 drop BOTH EYES TID PRN 10/30/19 01/21/20 History [Artificial Tear Drops] Losartan [Cozaar] 25 mg PO BID #60 tab 11/04/19 01/21/20 Rx Metoprolol Succinate (ER) [Toprol 25 mg PO HS #30 tab.er.24h 11/04/19 01/21/20 Rx XL] Furosemide [Lasix] 40 mg PO Q48H 12/29/19 01/21/20 History Budesonide [Pulmicort] 1 mg INHALATION RT-BID #1 ml 01/01/20 01/21/20 Rx Ipratropium-Albuterol Nebulize 3 ml INHALATION RT-QID 01/21/20 01/21/20 History [Duoneb 0.5 mg-3 mg/3 ml Soln] Allergies Allergy/AdvReac Type Severity Reaction Status Date / Time No Known Allergies Allergy Verified 01/21/20 21:38 Physical Exam Vitals: Vital Signs Temp Pulse Pulse Resp BP BP Pulse Ox 01/22/20 07:38 73 01/22/20 07:24 65 89 L 01/22/20 04:00 75 20 114/70 94 L 01/21/20 22:20 96 20 130/84 92 L 01/21/20 22:11 91 18 01/21/20 22:01 87 18 01/21/20 21:55 98.2 F 102 H 25 H 138/86 98 01/21/20 21:40 85 111/73 92 L 01/21/20 20:40 104 H 95/67 90 L 01/21/20 20:36 98 21 95/67 90 L 01/21/20 20:10 94 106/73 96 01/21/20 20:04 96 16 01/21/20 19:54 92 16 01/21/20 19:40 96 95/64 97 01/21/20 19:30 19 94 L 01/21/20 19:00 98.6 F 105 H 18 111/68 81 L Intake and Output 01/21/20 01/22/20 01/22/20 22:59 06:59 14:59 Intake Total 0 Balance 0 Intake: Oral 0 Other: Voiding Method Urinal # Voids 1 Weight 110.223 kg 111.7 kg GENERAL EXAM: Somnolent, 74-year-old white male, on 6 L of oxygen, arousable to repeated verbal stimuli and patient does answer some simple questions with a limited verbal responses however if unstimulated falls back asleep, comfortable in no apparent distress. HEAD: Normocephalic/atraumatic. EYES: Normal reaction of pupils, equal size. Conjunctiva pink, sclera white. NOSE: Clear with pink turbinates. THROAT: No erythema or exudates. NECK: No masses, no JVD, no thyroid enlargement, no adenopathy. CHEST: No chest wall deformity. Symmetrical expansion. LUNGS: Equal air entry with basilar crackles, limited wheezes CVS: Regular rate and rhythm, normal S1 and S2, no gallops, no murmurs, no rubs ABDOMEN: Soft, nontender. No hepatosplenomegaly, normal bowel sounds, no gua rding or rigidity. EXTREMITIES: No clubbing, no edema, no cyanosis, 2+ pulses and upper and lower extremities. MUSCULOSKELETAL: Muscle strength and tone normal. SPINE: No scoliosis or deformity SKIN: No rashes CENTRAL NERVOUS SYSTEM: Lethargic but arousable to repeated verbal stimuli. No focal deficits, tone is normal in all 4 extremities. Results - Laboratory Findings CBC and BMP: 01/21/20 20:25 01/21/20 20:25 PT/INR, D-dimer PT 10.6 sec (9.0-12.0) 01/21/20 20:25 INR 1.0 (<1.2) 01/21/20 20:25 Abnormal lab findings: Abnormal Labs 01/21/20 01/21/20 01/21/20 20:25 20:25 20:25 Lymphocytes # 0.9 L Carbon Dioxide 31 H BUN 21 H Glucose 110 H Troponin I 0.040 H* LDL Cholesterol, Calc Ur Leukocyte Esterase Urine Bacteria Hyaline Casts Urine Mucus 01/21/20 01/22/20 01/22/20 20:25 02:27 02:27 Lymphocytes # Carbon Dioxide BUN Glucose Troponin I 0.052 H* LDL Cholesterol, Calc 106 H Ur Leukocyte Esterase Small H Urine Bacteria Rare H Hyaline Casts 14 H Urine Mucus Rare H - Diagnostic Findings Chest x-ray: report reviewed, image reviewed Additional studies: EKG reviewed Assessment and Plan Plan: Assessment: #1. Acute on chronic hypoxemic respiratory failure possibly related to acute exacerbation of COPD, chest x-ray showed interstitial coarse markings, possibility of pulmonary fibrosis and left midlung infiltrate. However patient has had no fevers, no leukocytosis, pro calcitonin is pending. #2. Elevated troponins, cardiology is following, no complaints of chest pain #3. History of COPD on home oxygen, with baseline FEV1 of 55% of predicted, stage II COPD #4. Former smoker, currently in remission #5. Obstructive sleep apnea, patient is supposed to wear her CPAP with a pressure of 8 cm of water, and was previously noncompliant with CPAP therapy #6. Morbid obesity #7. Recurrent urinary tract infections hospitalized earlier this month for altered mentation related to urinary tract infection, urine culture from 12/28/2019 did not show any growth however previous urine cultures during [facility] were positive for Citrobacter freundii, E. coli and Enterobacter #8. Chronic congestive heart failure with preserved systolic function, #9. Depression #10. Prostate disorder with history of prostate surgery #11. GERD/reflux #12. History of anxiety Plan: Continue current medical management, chest x-ray has been reviewed, showing possibility of left midlung infiltrate on the initial chest x-ray, follow-up chest x-ray did not show clear evidence of pneumonia, will send the pro calcitonin level, we'll obtain a blood gas, patient is very lethargic, will place on CPAP with a pressure of 8 cm of water at bedtime and as needed during the day. Continue breathing treatments. We'll continue to follow. I performed a history & physical examination of the patient and discussed their management with my nurse practitioner, Erika Ayala. I reviewed the nurse practitioner's note and agree with the documented findings and plan of care. Lung sounds are positive for basilar crackles. The findings and the impression was discussed with the patient. I attest to the documentation by the nurse practitioner. Time with Patient: Greater than 30
[2020-01-22] MEDS: SODIUM CHLORIDE 0.9% 1,000 ML IV SCH ×2 (10:37→15:24)
[2020-01-22 10:56] LABS: ABG Base Excess 4.4 mmol/L; ABG HCO3 29 mmol/L (21-25); ABG Oxygen Saturation 89.2 % (94-97); ABG PCO2 46 mmHg (35-45); ABG PH 7.41 (7.35-7.45); ABG TCO2 31 mmol/L (19-24); Allen Test Performed? Yes
[2020-01-22 11:06] LABS: ABG PO2 58 mmHg (83-108)
[2020-01-22] MEDS: IPRATROPIUM-ALBUTEROL 3 ML NEB INHALATION SCH ×3 (11:08→20:26)
--- NOTE | 2020-01-22 12:07 | CT ---
CT CHEST FOR PULMONARY EMBOLISM. EXAMINATION TYPE: CT chest angio for PE DATE OF EXAM: 01/22/2020 INDICATION: PNA, weak, difficulty breathing CT DLP: 701.8 mGycm, Automated exposure control for dose reduction was used. CONTRAST: Patient injected with 100, wasted 24 mL of Isovue 370. COMPARISON: None TECHNIQUE: CT of the chest is performed on a spiral scan at 2 mm thick sections. Study is performed with intravenous contrast timed for evaluation for pulmonary embolism. This will limit additional po rtions of the evaluation. 3-D MIP images reconstructed by the technologist are reviewed on the compu ter in the coronal and sagittal planes. FINDINGS: There are small pulmonary emboli extending into the upper lobes bilaterally within secondary branches . Larger pulmonary embolism is into the lingula and right lower lobe. Some middle lobe pulmonary embo li are present. There is a prominent pretracheal lymph node measuring 1.4 cm present. Additional shotty lymphadenopat hy is evident. A 1.1 cm lymph node is in the superior pretracheal space The ascending aorta diameter at the level of the main pulmonary artery is 4.2 cm. The main pulmonary artery diameter at the bifu rcation is 3.9 cm. Changes compatible with pulmonary fibrosis is present. Paraseptal emphysematous changes could be cons idered. Some chronic bronchitis type thickening along the bronchi may be present. No bronchiectasis i s evident. Vague increased mosaic density may indicate some minimal underlying pulmonary edema. Limited CT section through the upper abdomen are unremarkable. IMPRESSIONS: 1. Bilateral acute pulmonary emboli. 2. Enlarged pretracheal lymph nodes. 3. Pulmonary fibrosis versus paraseptal emphysematous changes. Some chronic bronchitis type changes a re present. A [place] critical message alert has been initiated for Alvin Mott MD via the [employer] Critical Results System on 01/22/2020 12:01 PM. This message alert has been sent to Alvin Mott MD via the preferences provided by the clinician for the receipt of Radiology Critical Findings. [employer] ID [id number].
[2020-01-22] MEDS ORDERED: HEPARIN SODIUM,PORCINE 10,000 UNIT/ML 1 ML VIAL IV ONE (12:28)
[2020-01-22] MEDS ORDERED: HEPARIN SODIUM,PORCINE 5,000 UNIT/ML 1 ML VIAL IV PRN (12:28)
[2020-01-22] MEDS ORDERED: ARTIFICIAL TEARS-HYPROMELLOSE DROPS 15 ML BTL BOTH EYES PRN (12:33)
[2020-01-22] MEDS: HEPARIN SOD,PORK IN 0.45% NACL 25,000 UNIT in 0.45% NACL 1 250ML.BAG IV SCH (12:50)
[2020-01-22 12:56] LABS: Basophils % (A) 0 %; Eosinophils % (A) 1 %; HCT 42.9 % (39.0-53.0); HGB 13.9 gm/dL (13.0-17.5); Lymphocytes # (A) 0.4 k/uL (1.0-4.8); Lymphocytes % (A) 7 %; MCH 30.8 pg (25.0-35.0); MCHC 32.4 g/dL (31.0-37.0); MCV 95.1 fL (80.0-100.0); Monocytes # (A) 0.2 k/uL (0-1.0); Monocytes % (A) 4 %; Neutrophils # (A) 5.9 k/uL (1.3-7.7); Neutrophils % (A) 88 %; Platelet Count 202 k/uL (150-450); RBC 4.51 m/uL (4.30-5.90); RDW 14.1 % (11.5-15.5); WBC 6.7 k/uL (3.8-10.6)
--- NOTE | 2020-01-22 12:56 | P.HPIM ---
History of Present Illness Patient resting in bed with eyes closed CPAP in place, unable to verbalize at this time did arouse with eyes opening history taken from ER report pulmonology consultation report and cardiology consultation report. ER report states patient had had difficulty breathing 2 days prior to coming into the ER as it continued to get worse. History of COPD, with acute on chronic hypoxic respiratory failure, congestive heart failure with an EF of 55-60% diastolic dysfunction with minimal pulmonary edema, history of GERD prostate disorder with prostate surgery history of anxiety bipolar depression former smoker remote. Noted elevated d-dimer 11.92 CT angio shows positive bilateral pulmonary emboli. Results reported to pulmonology hyper protocol initiated will transfer to ICU. Review of Systems ROS unobtainable: due to mental status Past Medical History Past Medical History: Heart Failure, COPD, GERD/Reflux, Hypertension Additional Past Medical History / Comment(s): pt states sexual issue in the past would not go into deals History of Any Multi-Drug Resistant Organisms: None Reported Past Surgical History: Adenoidectomy, Prostate Surgery Additional Past Surgical History / Comment(s): left wrist surgery 12 years ago Past Anesthesia/Blood Transfusion Reactions: No Reported Reaction Past Psychological History: Anxiety, Bipolar, Depression Additional Psychological History / Comment(s): Patient caregiver states that symptoms have been worse since incarceration in June 2019, previous suicide attempt by cutting left wrist "years ago", per patient. no vocalization of any feelings this way. Smoking Status: Never smoker Past Alcohol Use History: None Reported, Occasional Additional Past Alcohol Use History / Comment(s): pt states he used to drink daily but quit 6 months ago Past Drug Use History: None Reported - Past Family History Mother Family Medical History: Cancer Father Family Medical History: Diabetes Mellitus Medications and Allergies Home Medications Medication Instructions Recorded Confirmed Type Levocetirizine Dihydrochloride 5 mg PO DAILY 11/23/18 01/21/20 History [Xyzal] FLUoxetine HCL [PROzac] 20 mg PO HS 08/10/19 01/21/20 History Loperamide HCl [Imodium A-D] 4 mg PO HS 08/10/19 01/21/20 History ARIPiprazole [Abilify] 5 mg PO DAILY 08/11/19 01/21/20 History Fluticasone Nasal [place] [Flonase 2 spray EA NOSTRIL DAILY spr 08/13/19 01/21/20 Rx Nasal [place]] Artificial Tears-Hypromellose 1 drop BOTH EYES TID PRN 10/30/19 01/21/20 History [Artificial Tear Drops] Losartan [Cozaar] 25 mg PO BID #60 tab 11/04/19 01/21/20 Rx Metoprolol Succinate (ER) [Toprol 25 mg PO HS #30 tab.er.24h 11/04/19 01/21/20 Rx XL] Furosemide [Lasix] 40 mg PO Q48H 12/29/19 01/21/20 History Budesonide [Pulmicort] 1 mg INHALATION RT-BID #1 ml 01/01/20 01/21/20 Rx Ipratropium-Albuterol Nebulize 3 ml INHALATION RT-QID 01/21/20 01/21/20 History [Duoneb 0.5 mg-3 mg/3 ml Soln] Allergies Allergy/AdvReac Type Severity Reaction Status Date / Time No Known Allergies Allergy Verified 01/21/20 21:38 Physical Exam Vitals: Vital Signs Temp Pulse Pulse Resp BP BP Pulse Ox 01/22/20 11:20 64 01/22/20 11:12 68 01/22/20 09:00 97.7 F 65 20 121/71 89 L 01/22/20 08:00 65 20 01/22/20 07:38 73 01/22/20 07:24 65 89 L 01/22/20 04:00 75 20 114/70 94 L 01/21/20 22:20 96 20 130/84 92 L 01/21/20 22:11 91 18 01/21/20 22:01 87 18 01/21/20 21:55 98.2 F 102 H 25 H 138/86 98 01/21/20 21:40 85 111/73 92 L 01/21/20 20:40 104 H 95/67 90 L 01/21/20 20:36 98 21 95/67 90 L 01/21/20 20:10 94 106/73 96 01/21/20 20:04 96 16 01/21/20 19:54 92 16 01/21/20 19:40 96 95/64 97 01/21/20 19:30 19 94 L 01/21/20 19:00 98.6 F 105 H 18 111/68 81 L Intake and Output 01/21/20 01/22/20 01/22/20 22:59 06:59 14:59 Intake Total 20 Balance 20 Intake: IV 20 Invasive Line 2 20 Oral 0 Other: Voiding Method Urinal Diaper # Voids 1 Weight 110.223 kg 111.7 kg - Constitutional General appearance: severe distress - Respiratory Respiratory: bilateral: diminished, rales - Cardiovascular Sinus rhythm with PACs Rhythm: irregularly irregular - Gastrointestinal General gastrointestinal: normal bowel sounds, soft - Integumentary Integumentary: normal - Neurologic Open eyes to verbal command with touch - Musculoskeletal Musculoskeletal: generalized weakness Results CBC & Chem 7: 01/21/20 20:25 01/21/20 20:25 Labs: Abnormal Lab Results - Last 24 Hours (Table) 01/21/20 01/21/20 01/21/20 Range/Units 20:25 20:25 20:25 Lymphocytes # 0.9 L (1.0-4.8) k/uL D-Dimer (<0.60) mg/L FEU ABG pCO2 (35-45) mmHg ABG pO2 (83-108) mmHg ABG HCO3 (21-25) mmol/L ABG Total CO2 (19-24) mmol/L ABG O2 Saturation (94-97) % Carbon Dioxide 31 H (22-30) mmol/L BUN 21 H (9-20) mg/dL Glucose 110 H (74-99) mg/dL Troponin I 0.040 H* (0.000-0.034) ng/mL LDL Cholesterol, Calc (0-99) mg/dL Ur Leukocyte Esterase (Negative) Urine Bacteria (None) /hpf Hyaline Casts (0-2) /lpf Urine Mucus (None) /hpf 01/21/20 01/22/20 01/22/20 Range/Units 20:25 02:27 02:27 Lymphocytes # (1.0-4.8) k/uL D-Dimer (<0.60) mg/L FEU ABG pCO2 (35-45) mmHg ABG pO2 (83-108) mmHg ABG HCO3 (21-25) mmol/L ABG Total CO2 (19-24) mmol/L ABG O2 Saturation (94-97) % Carbon Dioxide (22-30) mmol/L BUN (9-20) mg/dL Glucose (74-99) mg/dL Troponin I 0.052 H* (0.000-0.034) ng/mL LDL Cholesterol, Calc 106 H (0-99) mg/dL Ur Leukocyte Esterase Small H (Negative) Urine Bacteria Rare H (None) /hpf Hyaline Casts 14 H (0-2) /lpf Urine Mucus Rare H (None) /hpf 01/22/20 01/22/20 Range/Units 10:24 10:42 Lymphocytes # (1.0-4.8) k/uL D-Dimer 11.92 H (<0.60) mg/L FEU ABG pCO2 46 H (35-45) mmHg ABG pO2 58 L* (83-108) mmHg ABG HCO3 29 H (21-25) mmol/L ABG Total CO2 31 H (19-24) mmol/L ABG O2 Saturation 89.2 L (94-97) % Carbon Dioxide (22-30) mmol/L BUN (9-20) mg/dL Glucose (74-99) mg/dL Troponin I (0.000-0.034) ng/mL LDL Cholesterol, Calc (0-99) mg/dL Ur Leukocyte Esterase (Negative) Urine Bacteria (None) /hpf Hyaline Casts (0-2) /lpf Urine Mucus (None) /hpf Chest x-ray: report reviewed CT scan - chest: report reviewed (Positive bilateral pulmonary emboli) Thrombosis Risk Factor Assmnt - Choose All That Apply Each Risk Factor Represents 3 Points: Age 75 years or older Thrombosis Risk Factor Assessment Total Risk Factor Score: 3 Thrombosis Risk Factor Assessment Level: Moderate Risk Assessment and Plan Plan: Assessment COPD acute exacerbation Acute on chronic hypoxic respiratory failure CPAP Elevated d-dimer with positive bilateral pulmonary emboli Metabolic encephalopathy secondary to hypoxia History of chronic CHF with diastolic dysfunction minimal pulmonary edema Pulmonary fibrosis History of prostate disorder with prostate surgery History of GERD History of anxiety and bipolar depression Former smoker remote Hypertension Plan Continue pulmonology and cardiology consultations Transfer ICU
[2020-01-22 13:09] LABS: Partial Thromboplastin Time 26.9 sec (22.0-30.0); Prothrombin Time 10.6 sec (9.0-12.0)
--- NOTE | 2020-01-22 13:22 | US ---
EXAMINATION TYPE: US venous doppler duplex LE BI DATE OF EXAM: 01/22/2020 1:00 PM COMPARISON: CT 01/22/2020 CLINICAL HISTORY: rule out DVt. Coronary embolism SIDE PERFORMED: Bilateral TECHNIQUE: The lower extremity deep venous system is examined utilizing real time linear array sonog [place] with graded compression, doppler sonography and color-flow sonography. VESSELS IMAGED: External Iliac Vein (EIV) Common Femoral Vein Deep Femoral Vein Greater Saphenous Vein * Femoral Vein Popliteal Vein Small Saphenous Vein * Proximal Calf Veins (* superficial vessels) Low-level internal echoes, lack of compressibility and color-flow noted bilaterally within the poplit eal veins Right Leg: Positive for DVT in popliteal vein mid/distal Left Leg: Positive for DVT in popliteal vein mid/distal IMPRESSION: Bilateral deep venous thrombosis within the popliteal veins A Red level critical message alert has been initiated for Alvin Mott MD via the [employer] Critical Results System on 01/22/2020 1:19 PM. This message alert has been sent to Alvin Mott MD via the preferences provided by the clinician for the receipt of Radiology Critical Findings. Message ID [id number].
--- NOTE | 2020-01-22 14:54 | P.GSCN ---
History of Present Illness Consult date: 01/22/20 History of present illness: Patient is a 74-year-old male with a past medical history including COPD, immobility, sleep apnea who presented for acute worsening of his breathing according to his knees. The majority the history is obtained via chart review and the knees over the phone. She states that approximately 1 week ago he was fine and earlier the past couple of days he began having worsening shortness of breath. He typically will get pneumonia or urinary tract infections which do not have this same clinical picture for him although with those he does get s hortness of breath. She states that he had increased fatigue and decreased ability to have endurance with this go round which is abnormal from previous. She denies any fevers, chills, nausea or vomiting. She states he has been a little bit more sedentary recently Past Medical History Past Medical History: Heart Failure, COPD, GERD/Reflux, Hypertension Additional Past Medical History / Comment(s): pt states sexual issue in the past would not go into deals History of Any Multi-Drug Resistant Organisms: None Reported Past Surgical History: Adenoidectomy, Prostate Surgery Additional Past Surgical History / Comment(s): left wrist surgery 12 years ago Past Anesthesia/Blood Transfusion Reactions: No Reported Reaction Past Psychological History: Anxiety, Bipolar, Depression Additional Psychological History / Comment(s): Patient caregiver states that symptoms have been worse since incarceration in June 2019, previous suicide attempt by cutting left wrist "years ago", per patient. no vocalization of any feelings this way. Smoking Status: Never smoker Past Alcohol Use History: None Reported, Occasional Additional Past Alcohol Use History / Comment(s): pt states he used to drink daily but quit 6 months ago Past Drug Use History: None Reported - Past Family History Mother Family Medical History: Cancer Father Family Medical History: Diabetes Mellitus Medications and Allergies Home Medications Medication Instructions Recorded Confirmed Type Levocetirizine Dihydrochloride 5 mg PO DAILY 11/23/18 01/21/20 History [Xyzal] FLUoxetine HCL [PROzac] 20 mg PO HS 08/10/19 01/21/20 History Loperamide HCl [Imodium A-D] 4 mg PO HS 08/10/19 01/21/20 History ARIPiprazole [Abilify] 5 mg PO DAILY 08/11/19 01/21/20 History Fluticasone Nasal [place] [Flonase 2 spray EA NOSTRIL DAILY spr 08/13/19 01/21/20 Rx Nasal [place]] Artificial Tears-Hypromellose 1 drop BOTH EYES TID PRN 10/30/19 01/21/20 History [Artificial Tear Drops] Losartan [Cozaar] 25 mg PO BID #60 tab 11/04/19 01/21/20 Rx Metoprolol Succinate (ER) [Toprol 25 mg PO HS #30 tab.er.24h 11/04/19 01/21/20 Rx XL] Furosemide [Lasix] 40 mg PO Q48H 12/29/19 01/21/20 History Budesonide [Pulmicort] 1 mg INHALATION RT-BID #1 ml 01/01/20 01/21/20 Rx Ipratropium-Albuterol Nebulize 3 ml INHALATION RT-QID 01/21/20 01/21/20 History [Duoneb 0.5 mg-3 mg/3 ml Soln] Allergies Allergy/AdvReac Type Severity Reaction Status Date / Time No Known Allergies Allergy Verified 01/21/20 21:38 Surgical - Exam Vital Signs Temp Pulse Resp BP Pulse Ox 98.6 F 105 H 18 111/68 81 L 01/21/20 19:00 01/21/20 19:00 01/21/20 19:00 01/21/20 19:00 01/21/20 19:00 Gen. is a pleasant cooperative male in no acute distress. HEENT is normocephalic, atraumatic, wearing a CPAP. Heart is regular at this time. Lungs are decreased but clear. Abdomen is obese, nontender. Extremity show no clubbing, cyanosis or edema that is obvious. Normal mood, normal affect, poor h istorian. Skin without rashes Results CT into grandmother has reviewed as well as ultrasounds bilateral lower extremities. There is significant thrombus in the left and right pulmonary arteries. There is bilateral popliteal DVT noted - Labs 01/22/20 12:42 01/21/20 20:25 Abnormal Lab Results - Last 24 Hours (Table) 01/21/20 01/21/20 01/21/20 Range/Units 20:25 20:25 20:25 Lymphocytes # 0.9 L (1.0-4.8) k/uL D-Dimer (<0.60) mg/L FEU ABG pCO2 (35-45) mmHg ABG pO2 (83-108) mmHg ABG HCO3 (21-25) mmol/L ABG Total CO2 (19-24) mmol/L ABG O2 Saturation (94-97) % Carbon Dioxide 31 H (22-30) mmol/L BUN 21 H (9-20) mg/dL Glucose 110 H (74-99) mg/dL Troponin I 0.040 H* (0.000-0.034) ng/mL LDL Cholesterol, Calc (0-99) mg/dL Ur Leukocyte Esterase (Negative) Urine Bacteria (None) /hpf Hyaline Casts (0-2) /lpf Urine Mucus (None) /hpf 01/21/20 01/22/20 01/22/20 Range/Units 20:25 02: 02: Lymphocytes # (1.0-4.8) k/uL D-Dimer (<0.60) mg/L FEU ABG pCO2 (35-45) mmHg ABG pO2 (83-108) mmHg ABG HCO3 (21-25) mmol/L ABG Total CO2 (19-24) mmol/L ABG O2 Saturation (94-97) % Carbon Dioxide (22-30) mmol/L BUN (9-20) mg/dL Glucose (74-99) mg/dL Troponin I 0.052 H* (0.000-0.034) ng/mL LDL Cholesterol, Calc 106 H (0-99) mg/dL Ur Leukocyte Esterase Small H (Negative) Urine Bacteria Rare H (None) /hpf Hyaline Casts 14 H (0-2) /lpf Urine Mucus Rare H (None) /hpf 01/22/20 01/22/20 01/22/20 Range/Units 10:24 10:42 12:42 Lymphocytes # 0.4 L (1.0-4.8) k/uL D-Dimer 11.92 H (<0.60) mg/L FEU ABG pCO2 46 H (35-45) mmHg ABG pO2 58 L* (83-108) mmHg ABG HCO3 29 H (21-25) mmol/L ABG Total CO2 31 H (19-24) mmol/L ABG O2 Saturation 89.2 L (94-97) % Carbon Dioxide (22-30) mmol/L BUN (9-20) mg/dL Glucose (74-99) mg/dL Troponin I (0.000-0.034) ng/mL LDL Cholesterol, Calc (0-99) mg/dL Ur Leukocyte Esterase (Negative) Urine Bacteria (None) /hpf Hyaline Casts (0-2) /lpf Urine Mucus (None) /hpf Diabetes panel 01/21/20 01/22/20 Range/Units 20:25 02:27 Sodium 139 (137-145) mmol/L Potassium 4.3 (3.5-5.1) mmol/L Chloride 102 (98-107) mmol/L Carbon Dioxide 31 H (22-30) mmol/L BUN 21 H (9-20) mg/dL Creatinine 0.94 (0.66-1.25) mg/dL Glucose 110 H (74-99) mg/dL Calcium 8.7 (8.4-10.2) mg/dL AST 30 (17-59) U/L ALT 37 (4-49) U/L Alkaline Phosphatase 78 (38-126) U/L Total Protein 6.6 (6.3-8.2) g/dL Albumin 3.6 (3.5-5.0) g/dL Triglycerides 53 (<150) mg/dL HDL Cholesterol 47 (40-60) mg/dL Calcium panel 01/21/20 Range/Units 20:25 Calcium 8.7 (8.4-10.2) mg/dL Albumin 3.6 (3.5-5.0) g/dL Pituitary panel 01/21/20 Range/Units 20:25 Sodium 139 (137-145) mmol/L Potassium 4.3 (3.5-5.1) mmol/L Chloride 102 (98-107) mmol/L Carbon Dioxide 31 H (22-30) mmol/L BUN 21 H (9-20) mg/dL Creatinine 0.94 (0.66-1.25) mg/dL Glucose 110 H (74-99) mg/dL Calcium 8.7 (8.4-10.2) mg/dL Adrenal panel 01/21/20 Range/Units 20:25 Sodium 139 (137-145) mmol/L Potassium 4.3 (3.5-5.1) mmol/L Chloride 102 (98-107) mmol/L Carbon Dioxide 31 H (22-30) mmol/L BUN 21 H (9-20) mg/dL Creatinine 0.94 (0.66-1.25) mg/dL Glucose 110 H (74-99) mg/dL Calcium 8.7 (8.4-10.2) mg/dL Total Bilirubin 0.7 (0.2-1.3) mg/dL AST 30 (17-59) U/L ALT 37 (4-49) U/L Alkaline Phosphatase 78 (38-126) U/L Total Protein 6.6 (6.3-8.2) g/dL Albumin 3.6 (3.5-5.0) g/dL Assessment and Plan Assessment: #1. Bilateral pulmonary emboli, echo pending for possible right heart strain #2 COPD Acute on chronic hypoxic respiratory failure requiring CPAP History of chronic CHF with minimal pulmonary edema Hypertension GERD History of prostate disorder status post prostate surgery Pulmonary fibrosis Plan: At this point we will await the final read from the echocardiogram, if it is positive and does show right heart strain, would recommend the patient be transferred down to [facility] for thrombolytic therapy. Risks and benefits of the procedure as well as not going forth any intervention were d iscussed with the patient as well as his niece over the phone. They are on board and in agreement with the plan. Continue heparin drip for now.
[2020-01-22] MEDS: FLUoxetine HCL 20 MG CAP PO SCH (20:58)
[2020-01-22] MEDS: LOSARTAN 25 MG TAB PO SCH (20:58)
[2020-01-22] MEDS: METOPROLOL SUCCINATE (ER) 25 MG TAB.ER.24H PO SCH (20:58)
[2020-01-22] MEDS ORDERED: LEVOFLOXACIN 750MG-D5W PMX 750 MG in DEXTROSE/WATER 1 150ML.BAG IVPB SCH (21:45)
[2020-01-23 05:21] LABS: Basophils % (A) 0 %; Eosinophils # (A) 0.1 k/uL (0-0.7); Eosinophils % (A) 2 %; HCT 39.6 % (39.0-53.0); HGB 12.8 gm/dL (13.0-17.5); Lymphocytes # (A) 0.8 k/uL (1.0-4.8); Lymphocytes % (A) 12 %; MCH 30.7 pg (25.0-35.0); MCHC 32.4 g/dL (31.0-37.0); MCV 94.9 fL (80.0-100.0); Mean Platelet Volume 7.2; Monocytes # (A) 0.4 k/uL (0-1.0); Monocytes % (A) 6 %; Neutrophils # (A) 5.3 k/uL (1.3-7.7); Neutrophils % (A) 80 %; Platelet Count 181 k/uL (150-450); RBC 4.17 m/uL (4.30-5.90); RDW 14.2 % (11.5-15.5); WBC 6.6 k/uL (3.8-10.6)
[2020-01-23] MEDS: HEPARIN SOD,PORK IN 0.45% NACL 25,000 UNIT in 0.45% NACL 1 250ML.BAG IV SCH ×2 (05:59→15:15)
[2020-01-23] MEDS: SODIUM CHLORIDE 0.9% 1,000 ML IV SCH ×2 (05:59→15:16)
[2020-01-23 06:03] LABS: Glucose,Whole Blood 101 mg/dL (75-99)
[2020-01-23] MEDS: PIPERACILLIN-TAZOBACTAM 3.375 GM in SODIUM CHLORIDE 0.9% 100 ML IVPB SCH (06:07)
[2020-01-23] MEDS: ARIPiprazole 5 MG TAB PO SCH (08:39)
[2020-01-23] MEDS: ASPIRIN 81 MG PO SCH (08:39)
[2020-01-23] MEDS: FUROSEMIDE 40 MG TAB PO SCH (08:39)
[2020-01-23] MEDS: FLUTICASONE 50MCG/SPRAY NASAL 16GM EA NOSTRIL SCH (08:39)
[2020-01-23] MEDS: LOSARTAN 25 MG TAB PO SCH ×2 (08:39→20:12)
[2020-01-23] MEDS: IPRATROPIUM-ALBUTEROL 3 ML NEB INHALATION SCH ×4 (08:44→19:59)
--- NOTE | 2020-01-23 10:50 | P.PN ---
Subjective Progress Note Date: 01/23/20 74-year-old white male patient of Dr. Alvin Mott with past medical history of COPD on home oxygen, chronic congestive heart failure, recurrent urinary tract infections, bipolar disorder, hypertension, GERD/reflux, prostate disorder, obstructive sleep apnea noncompliant with CPAP machine, but is supposed to wear her CPAP with a pressure of 8 cm of water, morbid obesity, former smoker who presented to the emergency department on O2 2019 with a family member for evaluation of increased shortness of breath for 2 days, with progressive worsening. Denied any fever or chills, did not have any cough or phlegm production, no chest pain, no palpitations, no nausea vomiting or diarrhea. Most of the history was obtain from the chart, patient is currently lethargic but arousable, he is able to provide a limited verbal responses, he is falling back asleep, does not appear to be in any acute distress, on presentation his pulse ox was 81% on 4 L, he is currently on FiO2 of 6 L with a pulse ox of 89%, he is afebrile, hemodynamically stable. Chest x-ray did not show any evidence of heart failure, it did show some coarsening of the interstitial markings, mild pulmonary fibrosis and the possibility of new mild infiltrate in the left midlung is noted. Lab work showed white blood cell count of 6.8, hemoglobin of 14.3, platelet count of 240, sodium of 139, potassium is 4.3, BUN of 21 creatinine 0.9. Troponins were 0.04, 0.05, 0.03, proBNP level was 748, influenza A and B screen were negative. EKG showed a normal sinus rhythm with PACs. Urinalysis showed small amount of leuks, but no significant amount of white blood cells, negative for urinary tract infection. Patient was placed on a combination of Levaquin and Zosyn, and repeat chest x-ray today shows somewhat increased interstitium On O2 2019 patient seen in follow-up on selective care unit, he is much more alert on today's exam, he is currently off his CPAP, he is on 4 L of oxygen and his pulse ox is 95%, afebrile, nontoxic tachycardic, heart rate is 65 BPM, blood pressure is stable. No complaints of chest pain, no worsening dyspnea, lung sounds reveal diminished breath sounds bilaterally, no major wheezing or rhonchi, no crackles. Denies any discomfort or tenderness in his bilateral calf area or posterior popliteal area, no swelling noted in bilateral lower extremities. Yesterday CT angios the chest revealed acute bilateral pulmonary emboli and enlarged pretracheal lymph nodes, pulmonary fibrosis versus emphysema tous changes. Patient remains on high intensity heparin infusion, echocardiogram did not show any evidence of right ventricular strain, hemodynamically patient remains stable, the decision was made to keep the patient on the stepdown unit. Vascular surgery has been consulted and agreed. Currently no plans for thrombolytics. We'll keep on heparin infusion for 1 more day before transitioning to oral anticoagulation Objective - Vital Signs Vital signs: Vital Signs Temp 97.7 F 01/23/20 07:49 Pulse 65 01/23/20 07:49 Resp 22 01/23/20 08:20 BP 107/64 01/23/20 07:49 Pulse Ox 95 01/23/20 08:20 Intake & Output 01/22/20 01/23/20 01/23/20 18:59 06:59 18:59 Intake Total 970 663.858 9920 Output Total 800 Balance 170 768.623 1752 Weight 109.5 kg Intake: IV 170 1060 Invasive Line 2 40 Invasive Line 3 30 10 Levofloxacin 750Mg-D5w 150 Pmx 750 mg In Dextrose/ Water 1 150ml.bag @ 100 mls/hr IVPB Q24H [facility] Rx#: [id number] Piperacillin-Tazobactam 3 100 100 .375 gm In Sodium Chloride 0.9% 100 ml @ 25 mls/hr IVPB Q8H [facility] Rx#: [id number] Sodium Chloride 0.9% 1, 800 000 ml @ 100 mls/hr IV . Q10H [facility] Rx#:[id number] Intake, IV Titration 800 400.000 Amount Heparin Sod,Pork in 0.45% 250.000 NaCl 25,000 unit In 0.45 % NaCl 1 250ml.bag @ 18 UNITS/KG/HR 20.106 mls/hr IV .[id number] [facility] Rx#: [id number] Levofloxacin 750Mg-D5w 150 Pmx 750 mg In Dextrose/ Water 1 150ml.bag @ 100 mls/hr IVPB Q24H [facility] Rx#: [id number] Sodium Chloride 0.9% 1, 800 000 ml @ 100 mls/hr IV . Q10H [facility] Rx#:[id number] Oral 0 50 240 Output: Urine 800 Uretheral (Chance) 550 Other: Voiding Method Diaper # Voids 2 1 - Exam GENERAL EXAM: Awake and alert 74-year-old white male, on 4 L of oxygen, with a pulse ox of 97% much more awake on today's exam, answering questions HEAD: Normocephalic/atraumatic. EYES: Normal reaction of pupils, equal size. Conjunctiva pink, sclera white. NOSE: Clear with pink turbinates. THROAT: No erythema or exudates. NECK: No masses, no JVD, no thyroid enlargement, no adenopathy. CHEST: No chest wall deformity. Symmetrical expansion. LUNGS: Equal air entry with basilar crackles, limited wheezes CVS: Regular rate and rhythm, normal S1 and S2, no gallops, no murmurs, no rubs ABDOMEN: Soft, nontender. No hepatosplenomegaly, normal bowel sounds, no guarding or rigidity. EXTREMITIES: No clubbing, no edema, no cyanosis, 2+ pulses and upper and lower extremities. MUSCULOSKELETAL: Muscle strength and tone normal. SPINE: No scoliosis or deformity SKIN: No rashes CENTRAL NERVOUS SYSTEM: Awake but arousable to repeated verbal stimuli. No focal deficits, tone is normal in all 4 extremities. - Labs CBC & Chem 7: 01/23/20 02:50 01/21/20 20:25 Labs: Abnormal Lab Results - Last 24 Hours (Table) 01/22/20 01/22/20 01/22/20 Range/Units 10:24 10:42 12:42 RBC (4.30-5.90) m/uL Hgb (13.0-17.5) gm/dL Lymphocytes # 0.4 L (1.0-4.8) k/uL APTT (22.0-30.0) sec D-Dimer 11.92 H (<0.60) mg/L FEU ABG pCO2 46 H (35-45) mmHg ABG pO2 58 L* (83-108) mmHg ABG HCO3 29 H (21-25) mmol/L ABG Total CO2 31 H (19-24) mmol/L ABG O2 Saturation 89.2 L (94-97) % POC Glucose (mg/dL) (75-99) mg/dL 01/22/20 01/23/20 01/23/20 Range/Units 19:39 02:50 02:50 RBC 4.17 L (4.30-5.90) m/uL Hgb 12.8 L (13.0-17.5) gm/dL Lymphocytes # 0.8 L (1.0-4.8) k/uL APTT 130.7 H* 63.3 H (22.0-30.0) sec D-Dimer (<0.60) mg/L FEU ABG pCO2 (35-45) mmHg ABG pO2 (83-108) mmHg ABG HCO3 (21-25) mmol/L ABG Total CO2 (19-24) mmol/L ABG O2 Saturation (94-97) % POC Glucose (mg/dL) (75-99) mg/dL 01/23/20 Range/Units 06:02 RBC (4.30-5.90) m/uL Hgb (13.0-17.5) gm/dL Lymphocytes # (1.0-4.8) k/uL APTT (22.0-30.0) sec D-Dimer (<0.60) mg/L FEU ABG pCO2 (35-45) mmHg ABG pO2 (83-108) mmHg ABG HCO3 (21-25) mmol/L ABG Total CO2 (19-24) mmol/L ABG O2 Saturation (94-97) % POC Glucose (mg/dL) 101 H (75-99) mg/dL Microbiology - Last 24 Hours (Table) 01/21/20 20:25 Blood Culture - Preliminary Blood No Growth after 24 hours Assessment and Plan Plan: Assessment: #1. Acute on chronic hypoxemic respiratory failure related to acute pulmonary emboli involving both lungs with no evidence of RV strain on the computed tomography scan or echocardiogram. Patient was found to have bilateral DVTs in bilateral lower extremities, hemodynamically patient has remained stable, not tachycardic, no arrhythmias. No hemoptysis, no chest pain, she remains on high- intensity heparin infusion, will be transitioned to oral Eliquis today or tomorrow #2. Elevated troponins, likely related to acute pulmonary emboli #3. Bilateral lower extremity DVTs #4. Lethargy, altered mentation, improved, possibly related to acute on chronic hypoxemia, improved with CPAP support #5. History of COPD on home oxygen, with baseline FEV1 of 55% of predicted, stage II COPD #6. Former smoker, currently in remission #7. Obstructive sleep apnea, patient is supposed to wear her CPAP with a pressure of 8 cm of water, and was previously noncompliant with CPAP therapy #8. Morbid obesity #9. Recurrent urinary tract infections hospitalized earlier this month for alte red mentation related to urinary tract infection, urine culture from 12/28/2019 did not show any growth however previous urine cultures during previous hospitalizations were positive for Citrobacter freundii, E. coli and Enterobacter #10. Chronic congestive heart failure with preserved systolic function, #11. Depression #12. Prostate disorder with history of prostate surgery #13. GERD/reflux #14. History of anxiety Plan: Continue heparin infusion today, case was discussed with vascular surgery and cardiology, echocardiogram was reviewed by Dr. Starks, showing no evidence of right ventricular strain, hemodynamically patient remains stable, he has been switched over to high flow nasal cannula is currently at 4 L, maintaining stable oxygenation, more awake and alert on today's exam, denies any acute complaints other than mild dyspnea with exertion, pro-calcitonin level came back low at 0.05, no evidence of infection, we will discontinue both antibiotics, continue breathing treatments. I performed a history & physical examination of the patient and discussed their management with my nurse practitioner, Erika Ayala. I reviewed the nurse practitioner's note and agree with the documented findings and plan of care. Lung sounds are positive for basilar crackles. The findings and the impression was discussed with the patient. I attest to the documentation by the nurse practitioner. Time with Patient: Less than 30
--- NOTE | 2020-01-23 11:30 | P.PN ---
Subjective Progress Note Date: 01/23/20 Patient seen and examined at the bedside. Patient states his breathing is somewhat easier today. He denies any chest pain. No acute changes through the night. Remains on a heparin drip. Physical therapy is at the bedside to work with patient. Echocardiogram was performed yesterday without any evidence of right heart strain. Objective - Vital Signs Vital signs: Vital Signs Temp 97.7 F 01/23/20 07:49 Pulse 65 01/23/20 07:49 Resp 22 01/23/20 08:20 BP 107/64 01/23/20 07:49 Pulse Ox 95 01/23/20 08:20 Intake & Output 01/22/20 01/23/20 01/23/20 18:59 06:59 18:59 Intake Total 970 606.930 8004 Output Total 800 Balance 170 718.610 3793 Weight 109.5 kg Intake: IV 170 1060 Invasive Line 2 40 Invasive Line 3 30 10 Levofloxacin 750Mg-D5w 150 Pmx 750 mg In Dextrose/ Water 1 150ml.bag @ 100 mls/hr IVPB Q24H [facility] Rx#: [id number] Piperacillin-Tazobactam 3 100 100 .375 gm In Sodium Chloride 0.9% 100 ml @ 25 mls/hr IVPB Q8H [facility] Rx#: [id number] Sodium Chloride 0.9% 1, 800 000 ml @ 100 mls/hr IV . Q10H [facility] Rx#:[id number] Intake, IV Titration 800 400.000 Amount Heparin Sod,Pork in 0.45% 250.000 NaCl 25,000 unit In 0.45 % NaCl 1 250ml.bag @ 18 UNITS/KG/HR 20.106 mls/hr IV .[id number] [facility] Rx#: [id number] Levofloxacin 750Mg-D5w 150 Pmx 750 mg In Dextrose/ Water 1 150ml.bag @ 100 mls/hr IVPB Q24H [facility] Rx#: [id number] Sodium Chloride 0.9% 1, 800 000 ml @ 100 mls/hr IV . Q10H [facility] Rx#:[id number] Oral 0 50 240 Output: Urine 800 Uretheral (Chance) 550 Other: Voiding Method Diaper # Voids 2 1 - Exam General appearance: The patient is alert, in no acute distress. HET: Head is normocephalic and atraumatic. Pupils are equal and reactive. Oropharynx is clear without lesions. Neck: Supple without lymphadenopathy. Trachea midline. Heart: S1 S2. Regular rate and rhythm. No audible murmurs. Lungs: Good air exchange, with minimal bilateral wheezes. Abdomen: Soft, nontender, nondistended with bowel sounds. No peritoneal signs. No palpable organomegaly or masses. Extremities: Normal skin color and turgor. No cyanosis, rash, ulceration, clubbing, or edema. Radial and pedal pulses are 2/4 bilaterally. Neurological: No focal deficits. Motor sensory intact - Labs CBC & Chem 7: 01/23/20 02:50 01/21/20 20:25 Labs: Abnormal Lab Results - Last 24 Hours (Table) 01/22/20 01/22/20 01/23/20 Range/Units 12:42 19:39 02:50 RBC 4.17 L (4.30-5.90) m/uL Hgb 12.8 L (13.0-17.5) gm/dL Lymphocytes # 0.4 L 0.8 L (1.0-4.8) k/uL APTT 130.7 H* (22.0-30.0) sec POC Glucose (mg/dL) (75-99) mg/dL 01/23/20 01/23/20 Range/Units 02:50 06:02 RBC (4.30-5.90) m/uL Hgb (13.0-17.5) gm/dL Lymphocytes # (1.0-4.8) k/uL APTT 63.3 H (22.0-30.0) sec POC Glucose (mg/dL) 101 H (75-99) mg/dL Microbiology - Last 24 Hours (Table) 01/21/20 20:25 Blood Culture - Preliminary Blood No Growth after 24 hours Assessment and Plan Assessment: #1 bilateral pulmonary emboli #2 COPD #3 acute on chronic hypoxic respiratory failure requiring CPAP #4 History of chronic congestive heart failure with minimal pulmonary edema #5 hypertension #6 GERD #7 history of prostate disorder status post prostate surgery #8 Pulmonary fibrosis Plan: Continue with current management for now, would recommend transition to oral anticoagulation. Will defer to pulmonary services for transition to oral anticoagulation upon their recommendation. We'll continue to follow. The above dictated assessment and findings were discussed with Dr. Chance. The impression and plan of care have been directed as dictated.
--- NOTE | 2020-01-23 12:02 | P.PN ---
Subjective Patient up in chair today alert and oriented does not have any recollection of yesterday's visit, he is currently with oxygen via nasal cannula. He reports prior to coming to the hospital he had been at home nonambulatory sitting on a couch watching TV. Discussing with case management for discharge plan to transfer to rehabilitation center after discharge. He had consultation with vascular surgeon, echo was ordered to look for right heart strain which per report from pulmonology was negative per Dr. Suárez's review of echo. He remains on heparin for pulmonary emboli and DVT with goal to transition him to oral anticoagulant. Objective - Vital Signs Vital signs: Vital Signs Temp 97.7 F 01/23/20 07:49 Pulse 65 01/23/20 07:49 Resp 22 01/23/20 08:20 BP 107/64 01/23/20 07:49 Pulse Ox 95 01/23/20 08:20 Intake & Output 01/22/20 01/23/20 01/23/20 18:59 06:59 18:59 Intake Total 970 709.859 1806 Output Total 800 Balance 170 906.400 9087 Weight 109.5 kg Intake: IV 170 1060 Invasive Line 2 40 Invasive Line 3 30 10 Levofloxacin 750Mg-D5w 150 Pmx 750 mg In Dextrose/ Water 1 150ml.bag @ 100 mls/hr IVPB Q24H [facility] Rx#: [id number] Piperacillin-Tazobactam 3 100 100 .375 gm In Sodium Chloride 0.9% 100 ml @ 25 mls/hr IVPB Q8H [facility] Rx#: [id number] Sodium Chloride 0.9% 1, 800 000 ml @ 100 mls/hr IV . Q10H [facility] Rx#:[id number] Intake, IV Titration 800 400.000 Amount Heparin Sod,Pork in 0.45% 250.000 NaCl 25,000 unit In 0.45 % NaCl 1 250ml.bag @ 18 UNITS/KG/HR 20.106 mls/hr IV .[id number] [facility] Rx#: [id number] Levofloxacin 750Mg-D5w 150 Pmx 750 mg In Dextrose/ Water 1 150ml.bag @ 100 mls/hr IVPB Q24H [facility] Rx#: [id number] Sodium Chloride 0.9% 1, 800 000 ml @ 100 mls/hr IV . Q10H [facility] Rx#:[id number] Oral 0 50 240 Output: Urine 800 Uretheral (Chance) 550 Other: Voiding Method Diaper # Voids 2 1 - Constitutional General appearance: Present: mild distress - EENT Eyes: Present: PERRLA - Neck Neck: Present: normal ROM - Respiratory Respiratory: bilateral: diminished - Cardiovascular Rhythm: regular Heart sounds: normal: S1, S2 - Gastrointestinal General gastrointestinal: Present: normal bowel sounds, soft - Labs CBC & Chem 7: 01/23/20 02:50 01/21/20 20:25 Labs: Abnormal Lab Results - Last 24 Hours (Table) 01/22/20 01/22/20 01/23/20 Range/Units 12:42 19:39 02:50 RBC 4.17 L (4.30-5.90) m/uL Hgb 12.8 L (13.0-17.5) gm/dL Lymphocytes # 0.4 L 0.8 L (1.0-4.8) k/uL APTT 130.7 H* (22.0-30.0) sec POC Glucose (mg/dL) (75-99) mg/dL 01/23/20 01/23/20 Range/Units 02:50 06:02 RBC (4.30-5.90) m/uL Hgb (13.0-17.5) gm/dL Lymphocytes # (1.0-4.8) k/uL APTT 63.3 H (22.0-30.0) sec POC Glucose (mg/dL) 101 H (75-99) mg/dL Microbiology - Last 24 Hours (Table) 01/21/20 20:25 Blood Culture - Preliminary Blood No Growth after 24 hours Assessment and Plan Plan: Assessment COPD acute exacerbation Acute on chronic hypoxic respiratory failure Elevated d-dimer with positive bilateral pulmonary emboli Bilateral lower extremity DVT Metabolic encephalopathy secondary to hypoxia improved History of chronic CHF with diastolic dysfunction minimal pulmonary edema Pulmonary fibrosis History of prostate disorder with prostate surgery History of GERD History of anxiety, bipolar, depression Former smoker remote Hypertension Plan Continue pulmonology, cardiology, and vascular surgeon consultations Plan for pulmonology to initiate oral anticoagulant Eliquis Per case management plan for discharge to rehab
--- NOTE | 2020-01-23 13:56 | P.PN ---
Subjective Progress Note Date: 01/23/20 This is a 74-year-old gentleman, most of the history was obtained from the medical record, patient is a poor historian. He has a documented history of hypertension, COPD, GERD, bipolar depression, nicotine dependence, chronic urinary tract infections, presented to the hospital after 2 days of p rogressively worsening shortness of breath. Chest x-ray did not reveal any evidence of congestive heart failure. Mild pulmonary fibrosis. Possible new mild infiltrate. EKG shows a normal sinus rhythm with PACs. Blood pressure 114/70 with a heart rate of 70, 94% on 4 L of oxygen, this morning he is 89% on 5 L. White blood cell count 6.8, hemoglobin 14.3, platelet count 240. Sodium 139, potassium 4.3, BUN 21, creatinine 0.9. Troponin 0.04, 0.05, 0.03. BNP level 748. Influenza A and B-. Cardiology consultation was requested because of abnormal troponins. 01/23/2020 Patient seen and examined this morning, hemodynamically stable, heart rate in the 60s, blood pressure stable. No complaints of any chest discomfort. CT angios of the chest performed yesterday revealed acute bilateral pulmonary embolism and enlarged paratracheal lymph nodes, pulmonary fibrosis versus emphysema. Patient is currently on high-intensity heparin. Echo was reviewed by Dr. Starks and did not reveal any evidence of right ventricular strain pattern. I pressure today 107/60 with a heart rate in the 60s, 100% on 4 L of O2. White blood cell count 6.6, hemoglobin 12.8, platelet count 181. Objective - Vital Signs Vital signs: Vital Signs Temp 97.7 F 01/23/20 07:49 Pulse 84 01/23/20 12:15 Resp 22 01/23/20 08:20 BP 107/64 01/23/20 07:49 Pulse Ox 95 01/23/20 08:20 Intake & Output 01/22/20 01/23/20 01/23/20 18:59 06:59 18:59 Intake Total 970 182.974 5855 Output Total 800 Balance 170 695.061 4782 Weight 109.5 kg Intake: IV 170 1060 Invasive Line 2 40 Invasive Line 3 30 10 Levofloxacin 750Mg-D5w 150 Pmx 750 mg In Dextrose/ Water 1 150ml.bag @ 100 mls/hr IVPB Q24H [facility] Rx#: [id number] Piperacillin-Tazobactam 3 100 100 .375 gm In Sodium Chloride 0.9% 100 ml @ 25 mls/hr IVPB Q8H [facility] Rx#: [id number] Sodium Chloride 0.9% 1, 800 000 ml @ 100 mls/hr IV . Q10H [facility] Rx#:[id number] Intake, IV Titration 800 400.000 Amount Heparin Sod,Pork in 0.45% 250.000 NaCl 25,000 unit In 0.45 % NaCl 1 250ml.bag @ 18 UNITS/KG/HR 20.106 mls/hr IV .[id number] [facility] Rx#: [id number] Levofloxacin 750Mg-D5w 150 Pmx 750 mg In Dextrose/ Water 1 150ml.bag @ 100 mls/hr IVPB Q24H [facility] Rx#: [id number] Sodium Chloride 0.9% 1, 800 000 ml @ 100 mls/hr IV . Q10H [facility] Rx#:[id number] Oral 0 50 240 Output: Urine 800 Uretheral (Chance) 550 Other: Voiding Method Diaper # Voids 2 1 - Exam HEAD: Normocephalic/atraumatic. EYES: Normal reaction of pupils, equal size. Conjunctiva pink, sclera white. NOSE: Clear with pink turbinates. THROAT: No erythema or exudates. NECK: No masses, no JVD, no thyroid enlargement, no adenopathy. CHEST: No chest wall deformity. Symmetrical expansion. LUNGS: Equal air entry with basilar crackles, limited wheezes CVS: Regular rate and rhythm, normal S1 and S2, no gallops, no murmurs, no rubs ABDOMEN: Soft, nontender. No hepatosplenomegaly, normal bowel sounds, no guarding or rigidity. EXTREMITIES: No clubbing, no edema, no cyanosis, 2+ pulses and upper and lower extremities. MUSCULOSKELETAL: Muscle strength and tone normal. SPINE: No scoliosis or deformity SKIN: No rashes CENTRAL NERVOUS SYSTEM: Awake but arousable to repeated verbal stimuli. No focal deficits, tone is normal in all 4 extremities. - Labs CBC & Chem 7: 01/23/20 02:50 01/21/20 20:25 Labs: Abnormal Lab Results - Last 24 Hours (Table) 02/26/20 02/27/20 02/27/20 Range/Units 19:39 02:50 02:50 RBC 4.17 L (4.30-5.90) m/uL Hgb 12.8 L (13.0-17.5) gm/dL Lymphocytes # 0.8 L (1.0-4.8) k/uL APTT 130.7 H* 63.3 H (22.0-30.0) sec POC Glucose (mg/dL) (75-99) mg/dL 01/23/20 Range/Units 06:02 RBC (4.30-5.90) m/uL Hgb (13.0-17.5) gm/dL Lymphocytes # (1.0-4.8) k/uL APTT (22.0-30.0) sec POC Glucose (mg/dL) 101 H (75-99) mg/dL Microbiology - Last 24 Hours (Table) 01/21/20 20:25 Blood Culture - Preliminary Blood No Growth after 24 hours Assessment and Plan Plan: Assessment and plan #1 exacerbation of COPD, possible pneumonia #2 abnormality in troponin likely secondary to PE #3 chronic ongoing nicotine dependence #4 obstructive sleep apnea #5 chronic UTI #6 hypertension #7 anxiety and depression #8 bipolar disorder #9 bilateral pulmonary embolism Plan From cardiology's perspective, we will continue the patient on current medications . Continue high-intensity heparin. DNP note has been reviewed, I agree with a documented findings and plan of care. Patient was seen and examined.
--- NOTE | 2020-01-23 16:33 | ECHOF ---
Referral Reason:positive for PE, R/O ventricular strain MEASUREMENTS -------- HEIGHT: 182.9 cm WEIGHT: 111.6 kg BP: 121/71 RVIDd: 3.3 cm (< 3.3) IVSd: 1.3 cm (0.6 - 1.1) LVIDd: 4.1 cm (3.9 - 5.3) LVPWd: 1.3 cm (0.6 - 1.1) IVSs: 1.3 cm LVIDs: 3.1 cm LVPWs: 1.3 cm LA Diam: 3.6 cm (2.7 - 3.8) Ao Diam: 3.6 cm (2.0 - 3.7) AV Cusp: 1.6 cm (1.5 - 2.6) LA Diam: 4.2 cm (2.7 - 3.8) MV E Chris: 0.55 m/s MV DecT: 225 ms MV A Chris: 0.78 m/s MV E/A Ratio: 0.69 RAP: 5.00 mmHg RVSP: 23.28 mmHg TAPSE: 23.95 mm FINDINGS -------- Sinus rhythm. This was a techncally difficult study with suboptimal views, , Definity utilized for enhancement of i mages. The left ventricular size is normal. There is mild concentric left ventricular hypertrophy. Overa ll left ventricular systolic function is low-normal with, an EF between 50 - 55 %. The right ventricle is normal in size. The left atrial size is normal. The right atrial size is normal. Lumason used The aortic valve is trileaflet, and appears structurally normal. No aortic stenosis or regurgitation. Mild mitral regurgitation is present. Mild tricuspid regurgitation present. Right ventricular systolic pressure is normal at < 35 mmHg. There is no evidence of pulmonary hypertension. The pulmonic valve was not well visualized. There is no pericardial effusion. CONCLUSIONS -------- 1. Sinus rhythm. 2. This was a techncally difficult study with suboptimal views, , Definity utilized for enhancement o f images. 3. The left ventricular size is normal. 4. There is mild concentric left ventricular hypertrophy. 5. Overall left ventricular systolic function is low-normal with, an EF between 50 - 55 %. 6. The right ventricle is normal in size. 7. The left atrial size is normal. 8. The right atrial size is normal. 9. Lumason used 10. The aortic valve is trileaflet, and appears structurally normal. No aortic stenosis or regurgitat ion. 11. Mild mitral regurgitation is present. 12. Mild tricuspid regurgitation present. 13. Right ventricular systolic pressure is normal at < 35 mmHg. 14. There is no evidence of pulmonary hypertension. 15. The pulmonic valve was not well visualized. 16. There is no pericardial effusion. GLASSWARE MAKER: uLiza Hayes RDCS
[2020-01-23] MEDS: FLUoxetine HCL 20 MG CAP PO SCH (20:12)
[2020-01-23] MEDS: METOPROLOL SUCCINATE (ER) 25 MG TAB.ER.24H PO SCH (20:12)
[2020-01-23 21:03] LABS: Glucose,Whole Blood 132 mg/dL (75-99)
[2020-01-24 03:43] LABS: Basophils % (A) 0 %; Eosinophils # (A) 0.3 k/uL (0-0.7); Eosinophils % (A) 5 %; HCT 37.5 % (39.0-53.0); HGB 12.1 gm/dL (13.0-17.5); Lymphocytes # (A) 0.8 k/uL (1.0-4.8); Lymphocytes % (A) 17 %; MCH 30.6 pg (25.0-35.0); MCHC 32.3 g/dL (31.0-37.0); MCV 94.5 fL (80.0-100.0); Mean Platelet Volume 7.1; Monocytes # (A) 0.3 k/uL (0-1.0); Monocytes % (A) 6 %; Neutrophils # (A) 3.3 k/uL (1.3-7.7); Neutrophils % (A) 69 %; Platelet Count 209 k/uL (150-450); RBC 3.96 m/uL (4.30-5.90); RDW 14.2 % (11.5-15.5); WBC 4.8 k/uL (3.8-10.6)
[2020-01-24] MEDS: SODIUM CHLORIDE 0.9% 1,000 ML IV SCH ×2 (07:50→10:02)
[2020-01-24] MEDS: HEPARIN SOD,PORK IN 0.45% NACL 25,000 UNIT in 0.45% NACL 1 250ML.BAG IV SCH (07:50)
[2020-01-24] MEDS: ARIPiprazole 5 MG TAB PO SCH (08:25)
[2020-01-24] MEDS: LOSARTAN 25 MG TAB PO SCH ×2 (08:25→20:36)
[2020-01-24] MEDS: FLUTICASONE 50MCG/SPRAY NASAL 16GM EA NOSTRIL SCH (08:25)
[2020-01-24] MEDS: ASPIRIN 81 MG PO SCH (08:25)
--- NOTE | 2020-01-24 08:32 | P.PN ---
Subjective Progress Note Date: 01/24/20 Patient was seen and examined sitting up in bed this morning. He appears in no acute distress. He is wearing oxygen 4 L per nasal cannula. He states his breathing is about the same as yesterday. He worked with physical therapy to get up in the chair yesterday, states he did well without any chest pain or significant shortness of breath. Respiratory rate is fluctuating between 16-24 breaths per minute nonlabored. Oxygen level is 93-94% on 4 L nasal cannula. He currently remains on a heparin drip. Objective - Vital Signs Vital signs: Vital Signs Temp 98.9 F 01/24/20 07:40 Pulse 60 01/24/20 07:40 Resp 24 01/24/20 07:57 BP 158/73 01/24/20 07:40 Pulse Ox 94 L 01/24/20 07:40 Intake & Output 01/23/20 01/24/20 01/24/20 18:59 06:59 18:59 Intake Total 2815.263 850 210 Balance 2815.263 850 210 Weight 123.5 kg Intake: IV 1980 10 Invasive Line 3 30 10 Levofloxacin 750Mg-D5w 150 Pmx 750 mg In Dextrose/ Water 1 150ml.bag @ 100 mls/hr IVPB Q24H [facility] Rx#: [id number] Piperacillin-Tazobactam 3 200 .375 gm In Sodium Chloride 0.9% 100 ml @ 25 mls/hr IVPB Q8H [facility] Rx#: [id number] Sodium Chloride 0.9% 1, 1600 000 ml @ 100 mls/hr IV . Q10H [facility] Rx#:[id number] Intake, IV Titration 155.263 850 Amount Heparin Sod,Pork in 0.45% 155.263 250 NaCl 25,000 unit In 0.45 % NaCl 1 250ml.bag @ 18 UNITS/KG/HR 20.106 mls/hr IV .[id number] [facility] Rx#: [id number] Sodium Chloride 0.9% 1, 600 000 ml @ 100 mls/hr IV . Q10H [facility] Rx#:[id number] Oral 680 200 Other: Voiding Method Diaper Diaper # Voids 5 1 - Exam General appearance: The patient is alert, in no acute distress. HET: Head is normocephalic and atraumatic. Pupils are equal and reactive. Oropharynx is clear without lesions. Neck: Supple without lymphadenopathy. Trachea midline. Heart: S1 S2. Regular rate and rhythm. No audible murmurs. Lungs: Good air exchange, with minimal bilateral expiratory wheezes wheezes. Abdomen: Soft, nontender, nondistended with bowel sounds. No peritoneal signs. No palpable organomegaly or masses. Extremities: Normal skin color and turgor. No cyanosis, rash, ulceration, clubbing, or edema. Radial and pedal pulses are 2/4 bilaterally. Neurological: No focal deficits. Motor sensory intact - Labs CBC & Chem 7: 01/24/20 02:45 01/21/20 20:25 Labs: Abnormal Lab Results - Last 24 Hours (Table) 01/23/20 01/24/20 01/24/20 Range/Units 20:31 02:45 02:45 RBC 3.96 L (4.30-5.90) m/uL Hgb 12.1 L (13.0-17.5) gm/dL Hct 37.5 L (39.0-53.0) % Lymphocytes # 0.8 L (1.0-4.8) k/uL APTT 57.2 H (22.0-30.0) sec POC Glucose (mg/dL) 132 H (75-99) mg/dL Microbiology - Last 24 Hours (Table) 01/21/20 20:25 Blood Culture - Preliminary Blood No Growth after 48 hours Assessment and Plan Assessment: #1 bilateral pulmonary emboli #2 COPD #3 acute on chronic hypoxic respiratory failure requiring CPAP #4 History of chronic congestive heart failure with minimal pulmonary edema #5 hypertension #6 GERD #7 history of prostate disorder status post prostate surgery #8 Pulmonary fibrosis Plan: Continue with current management for now, would recommend transition to oral anticoagulation. Will defer to pulmonary services for transition to oral anticoagulation upon their recommendation. Patient to follow-up in the office with Dr. Chance 1-2 weeks after discharge. We will sign off at this time if there are any further needs or questions please don't hesitate to contact us. The above dictated assessment and findings were discussed with Dr. Chance. The impression and plan of care have been directed as dictated.
[2020-01-24] MEDS: IPRATROPIUM-ALBUTEROL 3 ML NEB INHALATION SCH ×4 (09:08→20:56)
--- NOTE | 2020-01-24 10:38 | P.PN ---
Subjective Progress Note Date: 01/24/20 74-year-old white male patient of Dr. Alvin Mott with past medical history of COPD on home oxygen, chronic congestive heart failure, recurrent urinary tract infections, bipolar disorder, hypertension, GERD/reflux, prostate disorder, obstructive sleep apnea noncompliant with CPAP machine, but is supposed to wear her CPAP with a pressure of 8 cm of water, morbid obesity, former smoker who presented to the emergency department on O2 2019 with a family member for evaluation of increased shortness of breath for 2 days, with progressive worsening. Denied any fever or chills, did not have any cough or phlegm production, no chest pain, no palpitations, no nausea vomiting or diarrhea. Most of the history was obtain from the chart, patient is currently lethargic but arousable, he is able to provide a limited verbal responses, he is falling back asleep, does not appear to be in any acute distress, on presentation his pulse ox was 81% on 4 L, he is currently on FiO2 of 6 L with a pulse ox of 89%, he is afebrile, hemodynamically stable. Chest x-ray did not show any evidence of heart failure, it did show some coarsening of the interstitial markings, mild pulmonary fibrosis and the possibility of new mild infiltrate in the left midlung is noted. Lab work showed white blood cell count of 6.8, hemoglobin of 14.3, platelet count of 240, sodium of 139, potassium is 4.3, BUN of 21 creatinine 0.9. Troponins were 0.04, 0.05, 0.03, proBNP level was 748, influenza A and B screen were negative. EKG showed a normal sinus rhythm with PACs. Urinalysis showed small amount of leuks, but no significant amount of white blood cells, negative for urinary tract infection. Patient was placed on a combination of Levaquin and Zosyn, and repeat chest x-ray today shows somewhat increased interstitium On O2 2019 patient seen in follow-up on selective care unit, he is much more alert on today's exam, he is currently off his CPAP, he is on 4 L of oxygen and his pulse ox is 95%, afebrile, nontoxic tachycardic, heart rate is 65 BPM, blood pressure is stable. No complaints of chest pain, no worsening dyspnea, lung sounds reveal diminished breath sounds bilaterally, no major wheezing or rhonchi, no crackles. Denies any discomfort or tenderness in his bilateral calf area or posterior popliteal area, no swelling noted in bilateral lower extremities. Yesterday CT angios the chest revealed acute bilateral pulmonary emboli and enlarged pretracheal lymph nodes, pulmonary fibrosis versus emphysema tous changes. Patient remains on high intensity heparin infusion, echocardiogram did not show any evidence of right ventricular strain, hemodynamically patient remains stable, the decision was made to keep the patient on the stepdown unit. Vascular surgery has been consulted and agreed. Currently no plans for thrombolytics. We'll keep on heparin infusion for 1 more day before transitioning to oral anticoagulation On 2019 patient is seen in follow-up on selective care unit, his much more awake on today's exam, he is currently on 3 L of oxygen with a pulse ox of 95%, hemodynamically stable, he is afebrile, no altered mentation, answer questions appropriately, vital signs are stable, no acute events overnight, he continues on heparin infusion for pulmonary emboli and bilateral lower extremity DVTs. Patient can be safely switched over to oral anticoagulation. Echocardiogram did not show any evidence of right ventricular strain. Patient denies any shortness of breath, denies any chest pain or hemoptysis. His have severe generalized weakness, this could therapy is consulted and following with the patient, most likely patient will need subacute rehabilitation placement, discharge planning is working on arrangements Objective - Vital Signs Vital signs: Vital Signs Temp 98.9 F 01/24/20 07:40 Pulse 60 01/24/20 09:30 Resp 24 01/24/20 07:57 BP 158/73 01/24/20 07:40 Pulse Ox 95 01/24/20 09:10 Intake & Output 01/23/20 01/24/20 01/24/20 18:59 06:59 18:59 Intake Total 2815.263 850 210 Balance 2815.263 850 210 Weight 123.5 kg Intake: IV 1980 10 Invasive Line 3 30 10 Levofloxacin 750Mg-D5w 150 Pmx 750 mg In Dextrose/ Water 1 150ml.bag @ 100 mls/hr IVPB Q24H [facility] Rx#: [id number] Piperacillin-Tazobactam 3 200 .375 gm In Sodium Chloride 0.9% 100 ml @ 25 mls/hr IVPB Q8H [facility] Rx#: [id number] Sodium Chloride 0.9% 1, 1600 000 ml @ 100 mls/hr IV . Q10H [facility] Rx#:[id number] Intake, IV Titration 155.263 850 Amount Heparin Sod,Pork in 0.45% 155.263 250 NaCl 25,000 unit In 0.45 % NaCl 1 250ml.bag @ 18 UNITS/KG/HR 20.106 mls/hr IV .[id number] [facility] Rx#: [id number] Sodium Chloride 0.9% 1, 600 000 ml @ 100 mls/hr IV . Q10H [facility] Rx#:[id number] Oral 680 200 Other: Voiding Method Diaper Diaper # Voids 5 1 - Exam GENERAL EXAM: Awake and alert 74-year-old white male, on 3 L of oxygen, with a pulse ox of 97% much more awake on today's exam, answering questions HEAD: Normocephalic/atraumatic. EYES: Normal reaction of pupils, equal size. Conjunctiva pink, sclera white. NOSE: Clear with pink turbinates. THROAT: No erythema or exudates. NECK: No masses, no JVD, no thyroid enlargement, no adenopathy. CHEST: No chest wall deformity. Symmetrical expansion. LUNGS: Equal air entry with basilar crackles, no wheezes CVS: Regular rate and rhythm, normal S1 and S2, no gallops, no murmurs, no rubs ABDOMEN: Soft, nontender. No hepatosplenomegaly, normal bowel sounds, no guarding or rigidity. EXTREMITIES: No clubbing, no edema, no cyanosis, 2+ pulses and upper and lower extremities. MUSCULOSKELETAL: Muscle strength and tone normal. SPINE: No scoliosis or deformity SKIN: No rashes CENTRAL NERVOUS SYSTEM: Awake but arousable to repeated verbal stimuli. No focal deficits, tone is normal in all 4 extremities. - Labs CBC & Chem 7: 01/24/20 02:45 01/21/20 20:25 Labs: Abnormal Lab Results - Last 24 Hours (Table) 01/23/20 01/24/20 01/24/20 Range/Units 20:31 02:45 02:45 RBC 3.96 L (4.30-5.90) m/uL Hgb 12.1 L (13.0-17.5) gm/dL Hct 37.5 L (39.0-53.0) % Lymphocytes # 0.8 L (1.0-4.8) k/uL APTT 57.2 H (22.0-30.0) sec POC Glucose (mg/dL) 132 H (75-99) mg/dL Microbiology - Last 24 Hours (Table) 01/21/20 20:25 Blood Culture - Preliminary Blood No Growth after 48 hours Assessment and Plan Plan: Assessment: #1. Acute on chronic hypoxemic respiratory failure related to acute pulmonary emboli involving both lungs with no evidence of RV strain on the computed tomography scan or echocardiogram. Patient was found to have bilateral DVTs in bilateral lower extremities, hemodynamically patient has remained stable, not tachycardic, no arrhythmias. No hemoptysis, no chest pain, he remains on high- intensity heparin infusion, will be transitioned to oral Eliquis today #2. Elevated troponins, related to acute pulmonary emboli #3. Bilateral lower extremity DVTs #4. Lethargy, altered mentation, improved, possibly related to acute on chronic hypoxemia, improved with CPAP support #5. History of COPD on home oxygen, with baseline FEV1 of 55% of predicted, stage II COPD #6. Former smoker, currently in remission #7. Obstructive sleep apnea, patient is supposed to wear her CPAP with a pressure of 8 cm of water, and was previously noncompliant with CPAP therapy #8. Morbid obesity #9. Recurrent urinary tract infections hospitalized earlier this month for altered mentation related to urinary tract infection, urine culture from 12/28/2019 did not show any growth however previous urine cultures during previous hospitalizations were positive for Citrobacter freundii, E. coli and Enterobacter #10. Chronic congestive heart failure with preserved systolic function, #11. Depression #12. Prostate disorder with history of prostate surgery #13. GERD/reflux #14. History of anxiety Plan: Clinically stable, more awake and interactive on today's exam, FiO2 is down to 3 L. Breathing comfortably, no complaints of chest pain, no hemoptysis, no dyspnea, we'll transition the IV heparin to oral Eliquis. Increase activity as tolerated, physical therapy is following, patient is very generally weak. Discharge planning is in progress for placement to subacute rehab, and they're currently working on finding an accepting facility. Patient is stable for discharge once those arrangements are complete, pulmonary service will follow on as-needed basis I performed a history & physical examination of the patient and discussed their management with my nurse practitioner, Erika Ayala. I reviewed the nurse practitioner's note and agree with the documented findings and plan of care. Lung sounds are positive for basilar crackles. The findings and the impression was discussed with the patient. I attest to the documentation by the nurse practitioner. Time with Patient: Less than 30
[2020-01-24] MEDS: APIXABAN 5 MG TAB PO SCH ×2 (11:18→20:36)
--- NOTE | 2020-01-24 14:21 | P.PN ---
Subjective Progress Note Date: 01/24/20 Principal diagnosis: Patient resting in bed with eyes closed CPAP in place, unable to verbalize at this time did arouse with eyes opening history taken from ER report pulmonology consultation report and cardiology consultation report. ER report states patient had had difficulty breathing 2 days prior to coming into the ER as it continued to get worse. History of COPD, with acute on chronic hypoxic respiratory failure, congestive heart failure with an EF of 55-60% diastolic d ysfunction with minimal pulmonary edema, history of GERD prostate disorder with prostate surgery history of anxiety bipolar depression former smoker remote. Noted elevated d-dimer 11.92 CT angio shows positive bilateral pulmonary emboli. Results reported to pulmonology hyper protocol initiated will transfer to ICU. 01/23/2020 Patient up in chair today alert and oriented does not have any recollection of yesterday's visit, he is currently with oxygen via nasal cannula. He reports prior to coming to the hospital he had been at home nonambulatory sitting on a couch watching TV. Discussing with case management for discharge plan to transfer to rehabilitation center after discharge. He had consultation with vascular surgeon, echo was ordered to look for right heart strain which per report from pulmonology was negative per Dr. Suárez's review of echo. He remains on heparin for pulmonary emboli and DVT with goal to transition him to oral anticoagulant. 01/24/2020 This is a patient of Dr. Mott's and we are covering today. Patient is seen and evaluated today sitting up in the bed alert and oriented 3 answering questions appropriately. Patient is currently on 3 L of oxygen and discussed with nursing staff about continuing to wean patient slowly off of oxygen. Patient continues to be weak and physical therapy is following. Case management and social work looking for accepting facilities at an [facility] for continued PT/OT therapy. Patient was on IV heparin for bilateral pulmonary embolisms and will be transitioned to Eliquis today. Vascular surgery evaluated the patient and will be following up in the outpatient setting upon discharge. Currently no reports of chest pain, worsening shortness of breath, or palpitations. Patient is afebrile. No reports of nausea or vomiting and patient is tolerating diet. Instructed the patient to increase activity as tolerated. Objective - Vital Signs Vital signs: Vital Signs Temp 98.9 F 01/24/20 07:40 Pulse 60 01/24/20 09:30 Resp 24 01/24/20 07:57 BP 158/73 01/24/20 07:40 Pulse Ox 95 01/24/20 09:10 Intake & Output 01/23/20 01/24/20 01/24/20 18:59 06:59 18:59 Intake Total 2815.263 850 210 Balance 2815.263 850 210 Weight 123.5 kg Intake: IV 1980 10 Invasive Line 3 30 10 Levofloxacin 750Mg-D5w 150 Pmx 750 mg In Dextrose/ Water 1 150ml.bag @ 100 mls/hr IVPB Q24H [facility] Rx#: [id number] Piperacillin-Tazobactam 3 200 .375 gm In Sodium Chloride 0.9% 100 ml @ 25 mls/hr IVPB Q8H [facility] Rx#: [id number] Sodium Chloride 0.9% 1, 1600 000 ml @ 100 mls/hr IV . Q10H [facility] Rx#:[id number] Intake, IV Titration 155.263 850 Amount Heparin Sod,Pork in 0.45% 155.263 250 NaCl 25,000 unit In 0.45 % NaCl 1 250ml.bag @ 18 UNITS/KG/HR 20.106 mls/hr IV .[id number] [facility] Rx#: [id number] Sodium Chloride 0.9% 1, 600 000 ml @ 100 mls/hr IV . Q10H [facility] Rx#:[id number] Oral 680 200 Other: Voiding Method Diaper Diaper # Voids 5 1 - Exam Gen: This is a 74-year-old male sitting up in the bed, awake, alert and oriented 3, well-nourished, well-developed HEENT: Head is atraumatic, normocephalic. Pupils equal, round. Sclerae is anicteric. NECK: Supple. No JVD. No lymphadenopathy. No thyromegaly. LUNGS: Breath sounds diminished bilaterally with no wheezing or rhonchi noted. No intercostal retractions. HEART: Cardio S1, S2 present. Regular rate and rhythm. No murmur. ABDOMEN: Soft. Obese. Bowel sounds are present. No masses. No tenderness. EXTREMITIES: No pedal edema. No calf tenderness. NEUROLOGICAL: Patient is awake, alert and oriented x3. Cranial nerves 2 through 12 are grossly intact. - Labs CBC & Chem 7: 01/24/20 02:45 01/21/20 20:25 Labs: Abnormal Lab Results - Last 24 Hours (Table) 01/23/20 01/24/20 01/24/20 Range/Units 20:31 02:45 02:45 RBC 3.96 L (4.30-5.90) m/uL Hgb 12.1 L (13.0-17.5) gm/dL Hct 37.5 L (39.0-53.0) % Lymphocytes # 0.8 L (1.0-4.8) k/uL APTT 57.2 H (22.0-30.0) sec POC Glucose (mg/dL) 132 H (75-99) mg/dL Microbiology - Last 24 Hours (Table) 01/21/20 20:25 Blood Culture - Preliminary Blood No Growth after 48 hours Assessment and Plan Assessment: COPD acute exacerbation Acute on chronic hypoxic respiratory failure Elevated d-dimer with positive bilateral pulmonary emboli. Patient was on IV heparin and being transitioned to oral anticoagulation in the form of Eliquis Bilateral lower extremity DVT Metabolic encephalopathy secondary to hypoxia improved History of chronic CHF with diastolic dysfunction minimal pulmonary edema Pulmonary fibrosis History of prostate disorder with prostate surgery History of GERD History of anxiety, bipolar, depression Former smoker remote Hypertension Plan: Continue current medications, management, and symptomatic treatment. PT/OT to continue working with patient for strength and mobility. Case management and social work are following and working for acceptance at an ECF for continued PT/OT therapy for strength and mobility as the patient continues to be quite weak requiring assistance. Nursing staff to continue weaning off O2. Will continue to monitor closely. Further recommendations to follow. Awaiting on possible placement at an ECF.
[2020-01-24 20:26] LABS: Glucose,Whole Blood 139 mg/dL (75-99)
[2020-01-24] MEDS: FLUoxetine HCL 20 MG CAP PO SCH (20:36)
[2020-01-24] MEDS: METOPROLOL SUCCINATE (ER) 25 MG TAB.ER.24H PO SCH (20:36)
[2020-01-25 06:36] LABS: Basophils % (A) 0 %; Eosinophils # (A) 0.4 k/uL (0-0.7); Eosinophils % (A) 7 %; HCT 40.6 % (39.0-53.0); HGB 13.2 gm/dL (13.0-17.5); Lymphocytes # (A) 0.8 k/uL (1.0-4.8); Lymphocytes % (A) 15 %; MCH 30.4 pg (25.0-35.0); MCHC 32.5 g/dL (31.0-37.0); MCV 93.5 fL (80.0-100.0); Monocytes # (A) 0.2 k/uL (0-1.0); Monocytes % (A) 5 %; Neutrophils # (A) 3.8 k/uL (1.3-7.7); Neutrophils % (A) 72 %; Platelet Count 226 k/uL (150-450); RBC 4.34 m/uL (4.30-5.90); WBC 5.2 k/uL (3.8-10.6)
[2020-01-25 06:50] LABS: ALT 21 U/L (4-49); AST 20 U/L (17-59); African American GFR (CKD) >90 (>60 ml/min/1.73 sqM); Alkaline Phosphatase 75 U/L (38-126); Anion Gap 6 mmol/L; Blood Urea Nitrogen 16 mg/dL (9-20); Calcium 8.7 mg/dL (8.4-10.2); Carbon Dioxide 28 mmol/L (22-30); Chloride 103 mmol/L (98-107); Glucose 114 mg/dL (74-99); Non-African American GFR(CKD) 88 (>60 ml/min/1.73 sqM); Potassium 4.1 mmol/L (3.5-5.1); Sodium 137 mmol/L (137-145); Total Bilirubin 0.5 mg/dL (0.2-1.3); Total Protein 5.8 g/dL (6.3-8.2)
[2020-01-25] MEDS: APIXABAN 5 MG TAB PO SCH ×2 (08:20→19:56)
[2020-01-25] MEDS: LOSARTAN 25 MG TAB PO SCH ×2 (08:20→19:56)
[2020-01-25] MEDS: FLUTICASONE 50MCG/SPRAY NASAL 16GM EA NOSTRIL SCH (08:20)
[2020-01-25] MEDS: FUROSEMIDE 40 MG TAB PO SCH (08:20)
[2020-01-25] MEDS: ASPIRIN 81 MG PO SCH (08:20)
[2020-01-25] MEDS: ARIPiprazole 5 MG TAB PO SCH (08:20)
[2020-01-25] MEDS: IPRATROPIUM-ALBUTEROL 3 ML NEB INHALATION SCH ×4 (09:08→20:51)
--- NOTE | 2020-01-25 10:48 | P.PN ---
Subjective Patient is admitted for pulmonary embolism patient evidenced and half liters of oxygen at home patient is presently on 4 L patient's is his pain was the same as yesterday patient has generalized weakness will need discharge to subacute rehabilitation case management is working on that as per the case management will not be able to discharge the patient until Monday patient is transitioned Eliquis yesterday Constitutional: Denied any fatigue denied any fever. Cardio vascular: denied any chest pain, palpitations Gastrointestinal denied any nausea vomiting Pulmonary: Denied any shortness of breath cough Neurologic denied any new focal deficits All inpatient medications were reviewed and appropriate changes in these medications as dictated in the interval history and assessment and plan. Objective - Vital Signs Vital signs: Vital Signs Temp 99.1 F 01/25/20 04:00 Pulse 88 01/25/20 09:20 Resp 18 01/25/20 04:00 BP 145/69 01/25/20 04:00 Pulse Ox 94 L 01/25/20 04:00 Intake & Output 01/24/20 01/25/20 01/25/20 18:59 06:59 18:59 Intake Total 721.594 240 Balance 721.594 240 Weight 112 kg Intake: IV 30 Invasive Line 3 30 Intake, IV Titration 91.594 Amount Heparin Sod,Pork in 0.45% 91.594 NaCl 25,000 unit In 0.45 % NaCl 1 250ml.bag @ 18 UNITS/KG/HR 20.106 mls/hr IV .[id number] [facility] Rx#: [id number] Oral 600 240 Other: Voiding Method Diaper # Voids 1 1 # Bowel Movements 1 - Exam - Exam Gen: This is a 74-year-old male sitting up in the bed, awake, alert and oriented 3, well-nourished, well-developed HEENT: Head is atraumatic, normocephalic. Pupils equal, round. Sclerae is anicteric. NECK: Supple. No JVD. No lymphadenopathy. No thyromegaly. LUNGS: Breath sounds diminished bilaterally with no wheezing or rhonchi noted. No intercostal retractions. HEART: Cardio S1, S2 present. Regular rate and rhythm. No murmur. ABDOMEN: Soft. Obese. Bowel sounds are present. No masses. No tenderness. EXTREMITIES: No pedal edema. No calf tenderness. NEUROLOGICAL: Patient is awake, alert and oriented x3. Cranial nerves 2 through 12 are grossly intact. - Labs CBC & Chem 7: 01/25/20 06:16 01/25/20 06:16 Labs: Abnormal Lab Results - Last 24 Hours (Table) 01/24/20 01/25/20 01/25/20 Range/Units 20:24 06:16 06:16 Lymphocytes # 0.8 L (1.0-4.8) k/uL Glucose 114 H (74-99) mg/dL POC Glucose (mg/dL) 139 H (75-99) mg/dL Total Protein 5.8 L (6.3-8.2) g/dL Albumin 3.0 L (3.5-5.0) g/dL Microbiology - Last 24 Hours (Table) 01/21/20 20:25 Blood Culture - Preliminary Blood No Growth after 72 hours Assessment and Plan Plan: Acute hypoxic respiratory failure secondary to pulmonary embolism: Patient is on Eliquis which will be continued -Acute on chronic chronic hypercapnic respiratory failure separate COPD -Bilateral lower extremity DVT -Congest heart failure chronic systolic dysfunction with mild acute exacerbation patient is presently fairly euvolemic -Vital encephalopathy secondary to hypoxia which improved -Pulmonary fibrosis -benign prostatic hypertrophy -Gastroesophageal reflux disease -Bipolar disorder -Hypertension Waiting disposition to subacute rehabilitation which probably will have to on Monday
--- NOTE | 2020-01-25 12:43 | P.PN ---
Subjective Progress Note Date: 01/25/20 The patient was interviewed and examined sitting up comfortably in a recliner chair. He is currently undergoing nebulizer treatment. He states he continues to have fatigue and shortness of breath with minimal exertion. He denies any chest pain, chest pressure, palpitations, dizziness, or lightheadedness. GENERAL: Well-appearing, well-nourished and in no acute distress. NECK: Supple without JVD or thyromegaly. LUNGS: Breath sounds rhonchorous bilaterally with coarse crackles in the bases. Respiration mildly labored. No wheezes. HEART: Regular rate and rhythm without murmurs, rubs or gallops. S1 and S2 heard. EXTREMITIES: Normal range of motion, no edema. No clubbing or cyanosis. Peripheral pulses intact and strong. Vital signs: The patient's blood pressure has been stable with most recent reading being 145/69, heart rate 63, respirations 18, temperature 99.1, SpO2 94 on 4 L nasal cannula Laboratory data: WBC 5.2 hemoglobin 13.2, hematocrit 40.6, platelet 229, sodium 137, potassium 4.1, BUN 16, creatinine 0.77, AST 28, ALT 21 Impression: #1 COPD exacerbation #2 abnormal troponins, secondary to pulmonary emboli #3 bilateral pulmonary emboli, currently on Eliquis, positive DVT. #4 hypertension #5 sleep apnea, using CPAP Plan: Continue current medication regimen. No further recommendations at this time. Will follow-up with patient on as-needed basis. Objective - Vital Signs Vital signs: Vital Signs Temp 99.1 F 01/25/20 04:00 Pulse 84 01/25/20 11:52 Resp 16 01/25/20 11:38 BP 145/69 01/25/20 04:00 Pulse Ox 94 L 01/25/20 04:00 Intake & Output 01/24/20 01/25/20 01/25/20 18:59 06:59 18:59 Intake Total 721.594 240 358 Balance 721.594 240 358 Weight 112 kg Intake: IV 30 Invasive Line 3 30 Intake, IV Titration 91.594 Amount Heparin Sod,Pork in 0.45% 91.594 NaCl 25,000 unit In 0.45 % NaCl 1 250ml.bag @ 18 UNITS/KG/HR 20.106 mls/hr IV .[id number] [facility] Rx#: [id number] Oral 600 240 358 Other: Voiding Method Diaper # Voids 1 1 3 # Bowel Movements 1 2 - Labs CBC & Chem 7: 01/25/20 06:16 01/25/20 06:16 Labs: Abnormal Lab Results - Last 24 Hours (Table) 01/24/20 01/25/20 01/25/20 Range/Units 20:24 06:16 06:16 Lymphocytes # 0.8 L (1.0-4.8) k/uL Glucose 114 H (74-99) mg/dL POC Glucose (mg/dL) 139 H (75-99) mg/dL Total Protein 5.8 L (6.3-8.2) g/dL Albumin 3.0 L (3.5-5.0) g/dL Microbiology - Last 24 Hours (Table) 01/21/20 20:25 Blood Culture - Preliminary Blood No Growth after 72 hours
[2020-01-25] MEDS: METOPROLOL SUCCINATE (ER) 25 MG TAB.ER.24H PO SCH (19:56)
[2020-01-25] MEDS: FLUoxetine HCL 20 MG CAP PO SCH (19:56)
[2020-01-26] MEDS: IPRATROPIUM-ALBUTEROL 3 ML NEB INHALATION SCH ×4 (08:22→20:42)
[2020-01-26] MEDS: ARIPiprazole 5 MG TAB PO SCH (08:49)
[2020-01-26] MEDS: APIXABAN 5 MG TAB PO SCH ×2 (08:49→20:43)
[2020-01-26] MEDS: LOSARTAN 25 MG TAB PO SCH ×2 (08:49→20:43)
[2020-01-26] MEDS: ASPIRIN 81 MG PO SCH (08:49)
[2020-01-26] MEDS: FLUTICASONE 50MCG/SPRAY NASAL 16GM EA NOSTRIL SCH (08:49)
--- NOTE | 2020-01-26 12:32 | P.PN ---
Subjective Patient is admitted for pulmonary embolism patient evidenced and half liters of oxygen at home patient is presently on 4 L patient's is his pain was the same as yesterday patient has generalized weakness will need discharge to subacute rehabilitation case management is working on that as per the case management will not be able to discharge the patient until Monday patient is transitioned Eliquis yesterday. 01/26/2020 No overnight events patient is clinically doing well awaiting placement Constitutional: Denied any fatigue denied any fever. Cardio vascular: denied any chest pain, palpitations Gastrointestinal denied any nausea vomiting Pulmonary: Denied any shortness of breath cough Neurologic denied any new focal deficits All inpatient medications were reviewed and appropriate changes in these medications as dictated in the interval history and assessment and plan. Objective - Vital Signs Vital signs: Vital Signs Temp 98.0 F 01/26/20 08:51 Pulse 80 01/26/20 12:18 Resp 16 01/26/20 08:51 BP 125/75 01/26/20 08:51 Pulse Ox 93 L 01/26/20 08:51 Intake & Output 01/25/20 01/26/20 01/26/20 18:59 06:59 18:59 Intake Total 848 100 358 Balance 848 100 358 Weight 95.3 kg Intake: IV 30 Invasive Line 3 30 Oral 818 100 358 Other: Voiding Method Diaper # Voids 3 3 # Bowel Movements 2 - Exam - Exam Gen: This is a 74-year-old male sitting up in the bed, awake, alert and oriented 3, well-nourished, well-developed HEENT: Head is atraumatic, normocephalic. Pupils equal, round. Sclerae is anicteric. NECK: Supple. No JVD. No lymphadenopathy. No thyromegaly. LUNGS: Breath sounds diminished bilaterally with no wheezing or rhonchi noted. No intercostal retractions. HEART: Cardio S1, S2 present. Regular rate and rhythm. No murmur. ABDOMEN: Soft. Obese. Bowel sounds are present. No masses. No tenderness. EXTREMITIES: No pedal edema. No calf tenderness. NEUROLOGICAL: Patient is awake, alert and oriented x3. Cranial nerves 2 through 12 are grossly intact. - Labs CBC & Chem 7: 01/25/20 06:16 01/25/20 06:16 Labs: Microbiology - Last 24 Hours (Table) 01/21/20 20:25 Blood Culture - Preliminary Blood No Growth after 96 hours Assessment and Plan Plan: Acute hypoxic respiratory failure secondary to pulmonary embolism: Patient is on Eliquis which will be continued -Acute on chronic chronic hypercapnic respiratory failure separate COPD -Bilateral lower extremity DVT -Congest heart failure chronic systolic dysfunction with mild acute exacerbation patient is presently fairly euvolemic -Vital encephalopathy secondary to hypoxia which improved -Pulmonary fibrosis -benign prostatic hypertrophy -Gastroesophageal reflux disease -Bipolar disorder -Hypertension Waiting disposition to subacute rehabilitation which probably will have to on Monday
[2020-01-26] MEDS: FLUoxetine HCL 20 MG CAP PO SCH (20:43)
[2020-01-26] MEDS: METOPROLOL SUCCINATE (ER) 25 MG TAB.ER.24H PO SCH (20:43)
[2020-01-27 00:51] VITALS: RESP 20
[2020-01-27] MEDS: IPRATROPIUM-ALBUTEROL 3 ML NEB INHALATION SCH ×3 (08:08→15:47)
[2020-01-27] MEDS: APIXABAN 5 MG TAB PO SCH (08:27)
[2020-01-27] MEDS: FUROSEMIDE 40 MG TAB PO SCH (08:27)
[2020-01-27] MEDS: ARIPiprazole 5 MG TAB PO SCH (08:27)
[2020-01-27] MEDS: ASPIRIN 81 MG PO SCH (08:28)
[2020-01-27] MEDS: LOSARTAN 25 MG TAB PO SCH (08:28)
[2020-01-27] MEDS: FLUTICASONE 50MCG/SPRAY NASAL 16GM EA NOSTRIL SCH (08:28)
--- NOTE | 2020-01-27 11:30 | P.PN ---
Subjective Patient sitting up in bed with oxygen via nasal cannula at 3 L/m, denies any acute distress, does report having shortness of breath earlier today states he's not feeling any better or any worse. He reports he is still waiting for transfer to a rehabilitation facility. Objective - Vital Signs Vital signs: Vital Signs Temp 98.6 F 01/27/20 08:00 Pulse 76 01/27/20 08:19 Resp 20 01/27/20 08:00 BP 124/72 01/27/20 08:00 Pulse Ox 93 L 01/27/20 08:12 Intake & Output 01/26/20 01/27/20 01/27/20 18:59 06:59 18:59 Intake Total 838 260 270 Balance 838 260 270 Weight 111 kg Intake: IV 20 20 10 Invasive Line 4 20 20 10 Oral 818 240 260 Other: Voiding Method Diaper Diaper # Voids 2 2 1 # Bowel Movements 1 - Constitutional General appearance: Present: mild distress - Neck Neck: Present: normal ROM - Respiratory Respiratory: bilateral: diminished - Cardiovascular Rhythm: regular Heart sounds: normal: S1, S2 - Gastrointestinal General gastrointestinal: Present: normal bowel sounds - Integumentary Integumentary: Present: normal - Musculoskeletal Musculoskeletal: Present: generalized weakness - Labs CBC & Chem 7: 01/25/20 06:16 01/25/20 06:16 Labs: Microbiology - Last 24 Hours (Table) 01/21/20 20:25 Blood Culture - Preliminary Blood No Growth after 120 hours - Imaging and Cardiology Echocardiogram EF 50-55%. Mild mitral and tricuspid regurgitation Assessment and Plan Plan: Assessment: Acute hypoxic respiratory failure secondary to pulmonary embolism Eliquis in place Bilateral lower extremity DVT Vital encephalopathy secondary to hypoxia improved Pulmonary fibrosis Benign prostatic hypertrophy Gastroesophageal reflux disease Bipolar disorder Hypertension Plan: Continue with current plan of care Awaiting discharge to subacute rehabilitation [facility]
[2020-01-27 15:35] VITALS: BP 109/66; TEMP 98.2
[2020-01-27 15:57] VITALS: PULSE 80
--- NOTE | 2020-01-27 16:50 | P.DS ---
Providers Date of admission: 01/21/20 21:41 Expected date of discharge: 01/27/20 Attending physician: Alvin Mott Consults: 01/22/20 05:07 Consult Physician Routine Consulting Provider: Minor Hunt Consult Reason/Comments: PNA Do you want consulting provider notified?: Yes, Notify in am 01/22/20 05:08 Consult Physician Routine Consulting Provider: Brandon May Consult Reason/Comments: increased trop Do you want consulting provider notified?: Yes, Notify in am 01/22/20 13:44 Consult Physician Routine Consulting Provider: Eb Fowler Consult Reason/Comments: bilat large pulm emboli,ech pending Do you want consulting provider notified?: Yes Primary care physician: Alvin Mott Hospital Course: Patient was admitted to the hospital after having shortness of breath for over two days with increasing weakness, he had consultations with cardiology, vascular surgeon, and pulmonology, he is being discharged home on Eliquis with home care. ASSESSMENT: COPD acute exacerbation Acute on chronic hypoxic respiratory failure secondary to pulmonary emboli, started on Eliquis Elevated d-dimer with positive bilateral pulmonary emboli Bilateral lower extremity DVT Metabolic encephalopathy secondary to hypoxia improved History of chronic CHF with diastolic dysfunction minimal pulmonary edema Pulmonary fibrosis History of prostate disorder with prostate surgery History of GERD History of anxiety, bipolar, depression Former smoker remote Hypertension Plan: Discharge home on Eliquis with home care Follow up with Dr. Mott in 2-3 days Follow up with Pulmonology as needed Patient Condition at Discharge: Serious Plan - Discharge Summary Discharge Rx Participant: No New Discharge Prescriptions: New Apixaban [Eliquis] 10 mg PO BID 3 Days #6 tab Continue Levocetirizine Dihydrochloride [Xyzal] 5 mg PO DAILY FLUoxetine HCL [PROzac] 20 mg PO HS Loperamide HCl [Imodium A-D] 4 mg PO HS ARIPiprazole [Abilify] 5 mg PO DAILY Fluticasone Nasal [place] [Flonase Nasal [place]] 2 spray EA NOSTRIL DAILY spr Artificial Tears-Hypromellose [Artificial Tear Drops] 1 drop BOTH EYES TID PRN PRN Reason: Dry Eye(S)/ITCH Losartan [Cozaar] 25 mg PO BID #60 tab Metoprolol Succinate (ER) [Toprol XL] 25 mg PO HS #30 tab.er.24h Furosemide [Lasix] 40 mg PO Q48H Budesonide [Pulmicort] 1 mg INHALATION RT-BID #1 ml Ipratropium-Albuterol Nebulize [Duoneb 0.5 mg-3 mg/3 ml Soln] 3 ml INHALATION RT-QID Discharge Medication List Levocetirizine Dihydrochloride [Xyzal] 5 mg PO DAILY 11/23/18 [History] FLUoxetine HCL [PROzac] 20 mg PO HS 08/10/19 [History] Loperamide HCl [Imodium A-D] 4 mg PO HS 08/10/19 [History] ARIPiprazole [Abilify] 5 mg PO DAILY 08/11/19 [History] Fluticasone Nasal [place] [Flonase Nasal [place]] 2 spray EA NOSTRIL DAILY spr 08/13/19 [Rx] Artificial Tears-Hypromellose [Artificial Tear Drops] 1 drop BOTH EYES TID PRN 10/30/19 [History] Losartan [Cozaar] 25 mg PO BID #60 tab 11/04/19 [Rx] Metoprolol Succinate (ER) [Toprol XL] 25 mg PO HS #30 tab.er.24h 11/04/19 [Rx] Furosemide [Lasix] 40 mg PO Q48H 12/29/19 [History] Budesonide [Pulmicort] 1 mg INHALATION RT-BID #1 ml 01/01/20 [Rx] Ipratropium-Albuterol Nebulize [Duoneb 0.5 mg-3 mg/3 ml Soln] 3 ml INHALATION RT-QID 01/21/20 [History] Apixaban [Eliquis] 10 mg PO BID 3 Days #6 tab 01/27/20 [Rx] Follow up Appointment(s)/Referral(s): Alvin Mott MD [Primary Care Provider] - 01/31/20 3:00 pm (Monday) [facility], [NON-STAFF] - Dom Cristina MD [STAFF PHYSICIAN] - 2 Weeks (Spoke to advertising space clerk. Office will call with appointment time) Ambika Chance DO [STAFF PHYSICIAN] - 1 Week (Office is closed. Please call to schedule appointment) Ty Roth DO [Doctor of Osteopathic Medicine] - 02/11/20 9:30 am (Monday -Dr. Ira salter for hospital follow up) Patient Instructions/Handouts: Pulmonary Embolism (DC), Safe Use of Anticoagulants (DC)
== END 2020-01-27 18:39 | disposition home health service (06) | DRG 175 ==
LOC: EC 18:57 → 3SCARD 21:41
PROVIDERS: ADMIT Family Medicine; ATTEND Family Medicine
PROC: 5A09557 Assistance with Respiratory Ventilation, Greater than 96 Consecutive Hours, Continuous Positive Airway Pressure (ICD-10-PCS; principal; 2020-01-22)
DX: I26.99 Other pulmonary embolism without acute cor pulmonale (principal); G93.41 Metabolic encephalopathy; J96.21 Acute and chronic respiratory failure with hypoxia; F31.30 Bipolar disorder, current episode depressed, mild or moderate severity, unspecified; I50.32 Chronic diastolic (congestive) heart failure; I82.433 Acute embolism and thrombosis of popliteal vein, bilateral; J44.1 Chronic obstructive pulmonary disease with (acute) exacerbation; E66.01 Morbid (severe) obesity due to excess calories; F17.200 Nicotine dependence, unspecified, uncomplicated; F41.9 Anxiety disorder, unspecified; G47.33 Obstructive sleep apnea (adult) (pediatric); I11.0 Hypertensive heart disease with heart failure; J84.10 Pulmonary fibrosis, unspecified; K21.9 Gastro-esophageal reflux disease without esophagitis; N40.0 Benign prostatic hyperplasia without lower urinary tract symptoms; Z79.01 Long term (current) use of anticoagulants; Z79.899 Other long term (current) drug therapy; Z83.3 Family history of diabetes mellitus; Z87.440 Personal history of urinary (tract) infections; Z91.19 Patient's noncompliance with other medical treatment and regimen; Z91.5 Personal history of self-harm; Z99.81 Dependence on supplemental oxygen; Z68.32 Body mass index [BMI] 32.0-32.9, adult; Z86.19 Personal history of other infectious and parasitic diseases
CPT/HCPCS: 36415; 36600; 71046; 71275; 80053; 80061; 81001; 82805; 83605; 83735; 83880; 84145; 84484; 85025; 85379; 85610; 85730; 87040; 87502; 93005; 93306; 93970; 94640; 94660; 94760; 96374; 99291

== ENCOUNTER 2020-05-08 14:27 | Inpatient (IN) | payer MEDICARE, OTHER ==
--- NOTE | 2020-05-08 15:00 | ED ---
Recheck HPI - General Chief Complaint: Recheck/Abnormal Lab/Rx Stated Complaint: heart rate low Time Seen by Provider: 05/08/20 14:40 Source: patient, family, RN notes reviewed, old records reviewed Mode of arrival: wheelchair Limitations: no limitations - History of Present Illness Initial Comments: This is a 74-year-old male history of pulmonary emboli COPD CHF UTIs in the past who was brought in by his family who lives with because of a heart rate in the 40s today. Apparently yesterday he was slow and sluggish to answer questions he is back to normal today with respect to that today's also had some exertional dyspnea where normally can walk. His INR yesterday was therapeutic per family. He demonstrates no chest pain no fevers chills nausea vomiting sweats or other symptoms. - Related Data Home Medications Medication Instructions Recorded Confirmed Levocetirizine Dihydrochloride 5 mg PO DAILY 11/23/18 05/08/20 [Xyzal] FLUoxetine HCL [PROzac] 20 mg PO HS 08/10/19 05/08/20 Loperamide HCl [Imodium A-D] 4 mg PO HS 08/10/19 05/08/20 ARIPiprazole [Abilify] 5 mg PO DAILY 08/11/19 05/08/20 Furosemide [Lasix] 40 mg PO Q48H 12/29/19 05/08/20 Budesonide [Pulmicort] 2 ml INHALATION RT-QID 05/08/20 05/08/20 Ipratropium [place] [Atrovent Hfa] 2 puff INHALATION RT-DAILY 05/08/20 05/08/20 Warfarin Sodium [Coumadin] 2.5 mg PO SUTUTH 05/08/20 05/08/20 Warfarin Sodium [Coumadin] 5 mg PO MOWEFRSA 05/08/20 05/08/20 Previous Rx's Medication Instructions Recorded Fluticasone Nasal [place] [Flonase 2 spray EA NOSTRIL DAILY spr 08/13/19 Nasal [place]] Losartan [Cozaar] 25 mg PO BID #60 tab 11/04/19 Metoprolol Succinate (ER) [Toprol 25 mg PO HS #30 tab.er.24h 11/04/19 XL] Allergies Allergy/AdvReac Type Severity Reaction Status Date / Time No Known Allergies Allergy Verified 06/12/20 16:20 Review of Systems ROS Statement: Those systems with pertinent positive or pertinent negative responses have been documented in the HPI. ROS Other: All systems not noted in ROS Statement are negative. Past Medical History Past Medical History: Heart Failure, COPD, GERD/Reflux, Hypertension Additional Past Medical History / Comment(s): pt states sexual issue in the past would not go into deals History of Any Multi-Drug Resistant Organisms: None Reported Past Surgical History: Adenoidectomy, Prostate Surgery Additional Past Surgical History / Comment(s): left wrist surgery 12 years ago Past Anesthesia/Blood Transfusion Reactions: No Reported Reaction Past Psychological History: Anxiety, Bipolar, Depression Smoking Status: Never smoker Past Alcohol Use History: None Reported Past Drug Use History: None Reported - Past Family History Mother Family Medical History: Cancer Father Family Medical History: Diabetes Mellitus General Exam - General Exam Comments Initial Comments: This is a well-developed well-nourished awake alert male Limitations: no limitations General appearance: alert, in no apparent distress Head exam: Present: atraumatic, normocephalic, normal inspection Eye exam: Present: normal appearance, PERRL, EOMI. Absent: scleral icterus, conjunctival injection, periorbital swelling ENT exam: Present: normal exam, mucous membranes moist Neck exam: Present: normal inspection, full ROM, other (No stridor JVD or bruits). Absent: tenderness, meningismus, lymphadenopathy Respiratory exam: Present: normal lung sounds bilaterally. Absent: respiratory distress, wheezes, rales, rhonchi, stridor Cardiovascular Exam: Present: regular rate, normal rhythm, normal heart sounds, other (Extrasystoles noted). Absent: systolic murmur, diastolic murmur, rubs, gallop, clicks GI/Abdominal exam: Present: soft, normal bowel sounds. Absent: distended, tenderness, guarding, rebound, rigid Extremities exam: Present: normal inspection, full ROM, normal capillary refill. Absent: tenderness, pedal edema, joint swelling, calf tenderness Back exam: Present: normal inspection Neurological exam: Present: alert, oriented X3, CN II-XII intact Psychiatric exam: Present: normal affect, normal mood Skin exam: Present: warm, dry, intact, normal color. 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 Case is discussed with Eva anguiano for Dr. Mott today - Lab Data Result diagrams: 05/08/20 15:03 05/08/20 15:03 Lab Results 05/08/20 05/08/20 05/08/20 Range/Units 15:03 15:03 15:03 WBC 6.5 (3.8-10.6) k/uL RBC 5.09 (4.30-5.90) m/uL Hgb 15.0 (13.0-17.5) gm/dL Hct 46.3 (39.0-53.0) % MCV 91.0 (80.0-100.0) fL MCH 29.5 (25.0-35.0) pg MCHC 32.5 (31.0-37.0) g/dL RDW 14.4 (11.5-15.5) % Plt Count 191 (150-450) k/uL Neutrophils % 71 % Lymphocytes % 19 % Monocytes % 6 % Eosinophils % 3 % Basophils % 0 % Neutrophils # 4.6 (1.3-7.7) k/uL Lymphocytes # 1.2 (1.0-4.8) k/uL Monocytes # 0.4 (0-1.0) k/uL Eosinophils # 0.2 (0-0.7) k/uL Basophils # 0.0 (0-0.2) k/uL PT 16.8 H (9.0-12.0) sec INR 1.7 H (<1.2) APTT 30.0 (22.0-30.0) sec Sodium 137 (137-145) mmol/L Potassium 4.0 (3.5-5.1) mmol/L Chloride 102 (98-107) mmol/L Carbon Dioxide 28 (22-30) mmol/L Anion Gap 7 mmol/L BUN 17 (9-20) mg/dL Creatinine 0.78 (0.66-1.25) mg/dL Est GFR (CKD-EPI)AfAm >90 (>60 ml/min/1.73 sqM) Est GFR (CKD-EPI)NonAf 88 (>60 ml/min/1.73 sqM) Glucose 120 H (74-99) mg/dL Calcium 9.0 (8.4-10.2) mg/dL Magnesium 2.0 (1.6-2.3) mg/dL Total Bilirubin 0.9 (0.2-1.3) mg/dL AST 24 (17-59) U/L ALT 16 (4-49) U/L Alkaline Phosphatase 55 (38-126) U/L Creatine Kinase 148 (55-170) U/L Troponin I (0.000-0.034) ng/mL Total Protein 7.1 (6.3-8.2) g/dL Albumin 3.9 (3.5-5.0) g/dL TSH 1.380 (0.465-4.680) mIU/L Urine Color Urine Appearance (Clear) Urine pH (5.0-8.0) Ur Specific [place] (1.001-1.035) Urine Protein (Negative) Urine Glucose (UA) (Negative) Urine Ketones (Negative) Urine Blood (Negative) Urine Nitrite (Negative) Urine Bilirubin (Negative) Urine Urobilinogen (<2.0) mg/dL Ur Leukocyte Esterase (Negative) Urine RBC (0-5) /hpf Urine WBC (0-5) /hpf Urine WBC Clumps (None) /hpf Ur Squamous Epith Cells (0-4) /hpf Urine Bacteria (None) /hpf Urine Mucus (None) /hpf 05/08/20 05/08/20 Range/Units 15:03 15:10 WBC (3.8-10.6) k/uL RBC (4.30-5.90) m/uL Hgb (13.0-17.5) gm/dL Hct (39.0-53.0) % MCV (80.0-100.0) fL MCH (25.0-35.0) pg MCHC (31.0-37.0) g/dL RDW (11.5-15.5) % Plt Count (150-450) k/uL Neutrophils % % Lymphocytes % % Monocytes % % Eosinophils % % Basophils % % Neutrophils # (1.3-7.7) k/uL Lymphocytes # (1.0-4.8) k/uL Monocytes # (0-1.0) k/uL Eosinophils # (0-0.7) k/uL Basophils # (0-0.2) k/uL PT (9.0-12.0) sec INR (<1.2) APTT (22.0-30.0) sec Sodium (137-145) mmol/L Potassium (3.5-5.1) mmol/L Chloride (98-107) mmol/L Carbon Dioxide (22-30) mmol/L Anion Gap mmol/L BUN (9-20) mg/dL Creatinine (0.66-1.25) mg/dL Est GFR (CKD-EPI)AfAm (>60 ml/min/1.73 sqM) Est GFR (CKD-EPI)NonAf (>60 ml/min/1.73 sqM) Glucose (74-99) mg/dL Calcium (8.4-10.2) mg/dL Magnesium (1.6-2.3) mg/dL Total Bilirubin (0.2-1.3) mg/dL AST (17-59) U/L ALT (4-49) U/L Alkaline Phosphatase (38-126) U/L Creatine Kinase (55-170) U/L Troponin I <0.012 (0.000-0.034) ng/mL Total Protein (6.3-8.2) g/dL Albumin (3.5-5.0) g/dL TSH (0.465-4.680) mIU/L Urine Color Yellow Urine Appearance Cloudy (Clear) Urine pH 6.5 (5.0-8.0) Ur Specific [place] 1.018 (1.001-1.035) Urine Protein 1+ H (Negative) Urine Glucose (UA) Negative (Negative) Urine Ketones Negative (Negative) Urine Blood Trace H (Negative) Urine Nitrite Positive (Negative) Urine Bilirubin Negative (Negative) Urine Urobilinogen <2.0 (<2.0) mg/dL Ur Leukocyte Esterase Large H (Negative) Urine RBC 13 H (0-5) /hpf Urine WBC 162 H (0-5) /hpf Urine WBC Clumps Many H (None) /hpf Ur Squamous Epith Cells <1 (0-4) /hpf Urine Bacteria Rare H (None) /hpf Urine Mucus Rare H (None) /hpf - EKG Data -: EKG Interpreted by Me EKG shows normal: sinus rhythm (Sinus rhythm with occasional PVCs rate was 66. Interval 196 QRS duration 86 QT since QTC 420/448) - Radiology Data Radiology results: report reviewed (Review the imaging and report no acute findings.), image reviewed Disposition Clinical Impression: Urinary tract infection Disposition: ADMITTED IP TO THIS HOSP Condition: Fair Referrals: Alvin Mott MD [Primary Care Provider] - 1-2 days
[2020-05-08 15:16] LABS: Basophils % (A) 0 %; Eosinophils # (A) 0.2 k/uL (0-0.7); Eosinophils % (A) 3 %; HCT 46.3 % (39.0-53.0); Lymphocytes # (A) 1.2 k/uL (1.0-4.8); Lymphocytes % (A) 19 %; MCH 29.5 pg (25.0-35.0); MCHC 32.5 g/dL (31.0-37.0); Mean Platelet Volume 7.1; Monocytes # (A) 0.4 k/uL (0-1.0); Monocytes % (A) 6 %; Neutrophils # (A) 4.6 k/uL (1.3-7.7); Neutrophils % (A) 71 %; Platelet Count 191 k/uL (150-450); RBC 5.09 m/uL (4.30-5.90); RDW 14.4 % (11.5-15.5); WBC 6.5 k/uL (3.8-10.6)
[2020-05-08 15:27] LABS: ALT 16 U/L (4-49); AST 24 U/L (17-59); African American GFR (CKD) >90 (>60 ml/min/1.73 sqM); Albumin 3.9 g/dL (3.5-5.0); Alkaline Phosphatase 55 U/L (38-126); Anion Gap 7 mmol/L; Blood Urea Nitrogen 17 mg/dL (9-20); Carbon Dioxide 28 mmol/L (22-30); Chloride 102 mmol/L (98-107); Creatine Kinase 148 U/L (55-170); Glucose 120 mg/dL (74-99); Non-African American GFR(CKD) 88 (>60 ml/min/1.73 sqM); Sodium 137 mmol/L (137-145); Total Bilirubin 0.9 mg/dL (0.2-1.3); Total Protein 7.1 g/dL (6.3-8.2)
[2020-05-08 15:30] LABS: Appearance,Urine Cloudy (Clear); Bacteria,Urine Rare /hpf; Bilirubin,Urine Negative (Negative); Blood,Urine Trace (Negative); Color,Urine Yellow; Glucose,Urine (UA) Negative (Negative); Ketones,Urine Negative (Negative); Leukocyte Esterase,Urine Large (Negative); Mucus,Urine Rare /hpf; Nitrite,Urine Positive (Negative); PH, Urine 6.5 (5.0-8.0); Protein,Urine 1+ (Negative); RBC,Urine 13 /hpf (0-5); Specific Gravity,Urine 1.018 (1.001-1.035); Squamous Epithelial Cell,Urine <1 /hpf (0-4); Urobilinogen,Urine <2.0 mg/dL (<2.0); WBC,Urine 162 /hpf (0-5)
[2020-05-08 15:32] LABS: INR 1.7 (<1.2); Prothrombin Time 16.8 sec (9.0-12.0)
--- NOTE | 2020-05-08 15:34 | CT ---
EXAMINATION TYPE: CT brain wo con DATE OF EXAM: 05/08/2020 COMPARISON: 08/10/2019 HISTORY: Weakness CT DLP: 1111.4 mGycm Automated exposure control for dose reduction was used. FINDINGS: Moderate generalized degenerative change with low-attenuation the white matter which is nonspecific b ut most typical remote microvascular ischemia. Greater prominence of the CSF spaces along the anterio r temporal fossa bilaterally similar to the prior exam may represent asymmetric atrophy versus tiny a rachnoid cyst. There is no evidence of acute hemorrhage or mass effect. Dural calcifications in intracranial atherosclerotic changes are noted. Craniocervical junction maint ained. Partially empty sella turcica noted. IMPRESSION: DEGENERATIVE AND NONSPECIFIC WHITE MATTER CHANGES MOST TYPICAL OF REMOTE WHITE MATTER ISCHEMIA.
--- NOTE | 2020-05-08 15:46 | XR ---
EXAMINATION TYPE: XR chest 2V DATE OF EXAM: 05/08/2020 COMPARISON: Prior chest x-ray 01/22/2020 HISTORY: Dysrhythmia, shortness of breath TECHNIQUE: Frontal and lateral views of the chest are obtained. FINDINGS: There is no focal air space opacity, pleural effusion, or pneumothorax seen. The cardiac silhouette size is stable. Interstitium is increased. There are overlying cardiac leads. There are co ronary artery calcifications, there are interstitial changes within the lungs The osseous structures are intact, old healed rib fractures are present on the left. Aorta is tortuous and aneurysmal. IMPRESSION: No acute cardiopulmonary process. Interstitial lung disease. Coronary artery disease. Ao rtic aneurysm.
[2020-05-08] MEDS ORDERED: cefTRIAXone IN SWFI 1,000 MG/10 ML SYRINGE IVP STA (17:04)
[2020-05-08] MEDS ORDERED: NALOXONE 0.4 MG/ML 1 ML VIAL IV PRN (17:53)
[2020-05-08] MEDS ORDERED: WARFARIN 2 MG TAB PO ONE (18:30)
[2020-05-08] MEDS: BUDESONIDE 1 MG/2 ML NEBU INHALATION SCH (20:13)
[2020-05-08] MEDS: FLUoxetine HCL 20 MG CAP PO SCH (22:48)
[2020-05-08] MEDS: LOSARTAN 25 MG TAB PO SCH (22:48)
[2020-05-08] MEDS: METOPROLOL SUCCINATE (ER) 25 MG TAB.ER.24H PO SCH (22:48)
[2020-05-08] MEDS: LOPERAMIDE 2 MG CAP PO SCH (22:49)
[2020-05-09 07:19] LABS: INR 1.9 (<1.2); Prothrombin Time 18.6 sec (9.0-12.0)
[2020-05-09] MEDS: BUDESONIDE 1 MG/2 ML NEBU INHALATION SCH ×3 (08:10→20:46)
[2020-05-09] MEDS: IPRATROPIUM 0.5 MG/2.5 ML NEBU INHALATION SCH (08:11)
[2020-05-09] MEDS: LOSARTAN 25 MG TAB PO SCH ×2 (08:45→20:02)
[2020-05-09] MEDS: FUROSEMIDE 40 MG TAB PO SCH (08:45)
[2020-05-09] MEDS: LORATADINE 10 MG TAB PO SCH (08:45)
[2020-05-09] MEDS: FLUTICASONE 50MCG/SPRAY NASAL 16GM EA NOSTRIL SCH (08:46)
[2020-05-09] MEDS: ARIPiprazole 5 MG TAB PO SCH (11:13)
[2020-05-09] MEDS ORDERED: WARFARIN 5 MG TAB PO SCH (18:00)
[2020-05-09] MEDS: LOPERAMIDE 2 MG CAP PO SCH (20:01)
[2020-05-09] MEDS: METOPROLOL SUCCINATE (ER) 25 MG TAB.ER.24H PO SCH (20:02)
[2020-05-09] MEDS: FLUoxetine HCL 20 MG CAP PO SCH (20:02)
--- NOTE | 2020-05-10 00:01 | P.HPIM ---
History of Present Illness H&P Date: 05/09/20 Chief Complaint: Altered mental status Patient is a 74-year-old male with a known history of hypertension, COPD, chronic CHF ejection fraction not known and history of pulmonary emboli currently on anticoagulation with Coumadin and also history of UTIs in the past was brought to the hospital by his family because of heart rate is in 40s. Patient is also more lethargic and sluggish to answers. As per family he noticed to have exertional dyspnea as well. Patient was confused and altered. Patient was brought to the hospital for evaluation. Arrives patient is afebrile. No cough or sputum production. No nausea vomiting or abdominal pain or diarrhea. Denied any complaints of chest pain or worsening shortness of breath. Patient lives with his nephew and has been taking medications regularly. CT head showed degenerative and nonspecific white matter changes most typical of remote white matter ischemia. Chest x-ray showed no acute cardiopulmonary proce ss. Interstitial lung disease. Coronary artery disease. Aortic aneurysm. EKG showed sinus rhythm with occasional PVCs. Heart rate 66 on admission. Patient is currently awake alert and oriented and mental status seems to be improved. Laboratory data showed INR 1.7 on admission Urinalysis showed cloudy with nitrite positive and large leukocyte esterase, RBCs 13 and WBC is 162 TSH 1.380 Troponin x1- Liver enzymes are not elevated No leukocytosis. Hemoglobin 15.0. Review of Systems Constitutional: Patient denies any fever or chills . No generalized weakness or weight loss. Abdomen: Patient denied nausea vomiting and diarrhea and abdominal pain. Cardiovascular: Patient denies any chest pain or short of breath no palpitations. Respiratory: patient denied any cough is from production. No shortness of breath Neurologic: Patient denied any numbness or tingling headache. Musculoskeletal: Patient denies any complaints of joint swelling or deformity. Skin: Negative Psychiatric: Negative Endocrine: No heat or cold intolerance. No recent weight gain. Genitourinary: No dysuria or hematuria. All other 14 point ROS negative except the above Past Medical History Past Medical History: Heart Failure, COPD, GERD/Reflux, Hypertension Additional Past Medical History / Comment(s): pt states sexual issue in the past would not go into deals History of Any Multi-Drug Resistant Organisms: None Reported Past Surgical History: Adenoidectomy, Prostate Surgery Additional Past Surgical History / Comment(s): left wrist surgery 12 years ago Past Anesthesia/Blood Transfusion Reactions: No Reported Reaction Past Psychological History: Anxiety, Bipolar, Depression Additional Psychological History / Comment(s): Patient caregiver states that symptoms have been worse since incarceration in June 2019, previous suicide attempt by cutting left wrist "years ago", per patient. no vocalization of any feelings this way. Smoking Status: Former smoker Past Alcohol Use History: None Reported Additional Past Alcohol Use History / Comment(s): pt states he used to drink daily but quit 6 months ago Past Drug Use History: None Reported - Past Family History Mother Family Medical History: Cancer Father Family Medical History: Diabetes Mellitus Medications and Allergies Home Medications Medication Instructions Recorded Confirmed Type Levocetirizine Dihydrochloride 5 mg PO DAILY 11/23/18 05/08/20 History [Xyzal] FLUoxetine HCL [PROzac] 20 mg PO HS 08/10/19 05/08/20 History Loperamide HCl [Imodium A-D] 4 mg PO HS 08/10/19 05/08/20 History ARIPiprazole [Abilify] 5 mg PO DAILY 08/11/19 05/08/20 History Fluticasone Nasal [place] [Flonase 2 spray EA NOSTRIL DAILY spr 08/13/19 05/08/20 Rx Nasal [place]] Losartan [Cozaar] 25 mg PO BID #60 tab 11/04/19 05/08/20 Rx Metoprolol Succinate (ER) [Toprol 25 mg PO HS #30 tab.er.24h 11/04/19 05/08/20 Rx XL] Furosemide [Lasix] 40 mg PO Q48H 12/29/19 05/08/20 History Budesonide [Pulmicort] 2 ml INHALATION RT-BID 05/08/20 05/09/20 History Ipratropium [place] [Atrovent Hfa] 2 puff INHALATION RT-DAILY 05/08/20 05/08/20 History Warfarin Sodium [Coumadin] 2.5 mg PO SUTUTH 05/08/20 05/08/20 History Warfarin Sodium [Coumadin] 5 mg PO MOWEFRSA 05/08/20 05/08/20 History Allergies Allergy/AdvReac Type Severity Reaction Status Date / Time No Known Allergies Allergy Verified 05/08/20 16:20 Physical Exam Vitals: Vital Signs Temp Pulse Pulse Pulse Resp BP BP 05/09/20 05:22 97.6 F 57 L 19 118/66 05/08/20 21:18 97.9 F 55 L 18 120/75 05/08/20 20:22 60 05/08/20 20:17 05/08/20 20:15 59 L 05/08/20 18:42 97.7 F 54 L 18 148/79 05/08/20 16:09 98.1 F 55 L 18 130/69 05/08/20 15:14 66 05/08/20 14:32 98.2 F 64 18 109/67 Pulse Ox 05/09/20 05:22 93 L 05/08/20 21:18 94 L 05/08/20 20:22 05/08/20 20:17 98 05/08/20 20:15 05/08/20 18:42 96 05/08/20 16:09 95 05/08/20 15:14 05/08/20 14:32 97 Intake and Output 05/08/20 05/09/20 05/09/20 22:59 06:59 14:59 Other: Voiding Method Toilet Toilet # Voids 1 1 Weight 111.584 kg PHYSICAL EXAMINATION: Patient is lying in the bed comfortably, no acute distress, awake alert and oriented.. HEENT: Normocephalic. Neck is supple. Pupils reactive. Nostrils clear. Oral cavity is moist. Ears reveal no drainage. Neck reveals no JVD, carotid bruits, or thyromegaly. CHEST EXAMINATION: Trachea is central. Symmetrical expansion. Lung cevallos clear to auscultation and percussion. CARDIAC: Normal S1, S2 with no gallops. No murmurs ABDOMEN: Soft. Bowel sounds normal. No organomegaly. No abdominal bruits. Extremities: reveal no edema. No clubbing or cyanosis Neurologically awake, alert, oriented x3 with well-coordinated movements. No focal deficits noted Skin: No rash or skin lesions. Psychiatric: Coperative. Nonsuicidal Musculoskeletal: No joint swelling or deformity. Normal range of motion. Results CBC & Chem 7: 05/08/20 15:03 05/08/20 15:03 Labs: Abnormal Lab Results - Last 24 Hours (Table) 05/08/20 05/08/20 05/08/20 Range/Units 15:03 15:03 15:10 PT 16.8 H (9.0-12.0) sec INR 1.7 H (<1.2) Glucose 120 H (74-99) mg/dL Urine Protein 1+ H (Negative) Urine Blood Trace H (Negative) Ur Leukocyte Esterase Large H (Negative) Urine RBC 13 H (0-5) /hpf Urine WBC 162 H (0-5) /hpf Urine WBC Clumps Many H (None) /hpf Urine Bacteria Rare H (None) /hpf Urine Mucus Rare H (None) /hpf 05/09/20 Range/Units 06:22 PT 18.6 H (9.0-12.0) sec INR 1.9 H (<1.2) Glucose (74-99) mg/dL Urine Protein (Negative) Urine Blood (Negative) Ur Leukocyte Esterase (Negative) Urine RBC (0-5) /hpf Urine WBC (0-5) /hpf Urine WBC Clumps (None) /hpf Urine Bacteria (None) /hpf Urine Mucus (None) /hpf Microbiology - Last 24 Hours (Table) 05/08/20 15:10 Urine Culture - Preliminary Urine,Voided Thrombosis Risk Factor Assmnt - DVT/VTE Prophylaxis DVT/VTE Prophylaxis: Pharmacologic Prophylaxis ordered - Choose All That Apply Each Factor Represents 1 point: Abnormal pulmonary function (COPD), Obesity (BMI >25) Each Risk Factor Represents 3 Points: Age 75 years or older Thrombosis Risk Factor Assessment Total Risk Factor Score: 5 Thrombosis Risk Factor Assessment Level: High Risk Assessment and Plan Assessment: Altered mental status possible metabolic encephalopathy due to infection. Improved now Acute urinary tract infection Chronic CHF. Ejection fraction unknown Anxiety/depression, bipolar disorder Previous history of smoking History of alcohol abuse Hypertension GERD History of pulmonary embolism Subtherapeutic INR level Coumadin monitoring Plan: Patient will be continued on gentle hydration and antibiotics in the form of ceftriaxone. Continue with home medications including Lasix every 48 hours as p er home medicine. Follow-up urine culture report. Patient will be started on PT OT and increase ambulation. Monitor INR level. Further recommendations based on the clinical course. Time with Patient: Greater than 30
[2020-05-10 07:02] LABS: INR 1.7 (<1.2); Prothrombin Time 16.3 sec (9.0-12.0)
[2020-05-10] MEDS: IPRATROPIUM 0.5 MG/2.5 ML NEBU INHALATION SCH (07:57)
[2020-05-10] MEDS: BUDESONIDE 1 MG/2 ML NEBU INHALATION SCH ×2 (07:57→20:18)
[2020-05-10] MEDS: LOSARTAN 25 MG TAB PO SCH ×2 (08:22→22:23)
[2020-05-10] MEDS: ARIPiprazole 5 MG TAB PO SCH (08:22)
[2020-05-10] MEDS: LORATADINE 10 MG TAB PO SCH (08:22)
[2020-05-10] MEDS: FLUTICASONE 50MCG/SPRAY NASAL 16GM EA NOSTRIL SCH (08:22)
[2020-05-10] MEDS ORDERED: WARFARIN 2.5 MG TAB PO SCH (18:00)
[2020-05-10] MEDS ORDERED: WARFARIN 5 MG TAB PO ONE (18:00)
[2020-05-10] MEDS: METOPROLOL SUCCINATE (ER) 25 MG TAB.ER.24H PO SCH (22:23)
[2020-05-10] MEDS: FLUoxetine HCL 20 MG CAP PO SCH (22:24)
[2020-05-10] MEDS: LOPERAMIDE 2 MG CAP PO SCH (22:27)
--- NOTE | 2020-05-11 01:03 | P.PN ---
Subjective Progress Note Date: 05/10/20 Principal diagnosis: Altered mental status possible metabolic encephalopathy due to infection. Improved now Acute urinary tract infection Patient is a 74-year-old male with a known history of hypertension, COPD, chronic CHF ejection fraction not known and history of pulmonary emboli currently on anticoagulation with Coumadin and also history of UTIs in the past was brought to the hospital by his family because of heart rate is in 40s. Patient is also more lethargic and sluggish to answers. As per family he noticed to have exertional dyspnea as well. Patient was confused and altered. Patient was brought to the hospital for evaluation. Arrives patient is afebrile. No cough or sputum production. No nausea vomiting or abdominal pain or diarrhea. Denied any complaints of chest pain or worsening shortness of breath. Patient lives with his nephew and has been taking medications regularly. CT head showed degenerative and nonspecific white matter changes most typical of remote white matter ischemia. Chest x-ray showed no acute cardiopulmonary process. Interstitial lung disease. Coronary artery disease. Aortic aneurysm. EKG showed sinus rhythm with occasional PVCs. Heart rate 66 on admission. Patient is currently awake alert and oriented and mental status seems to be improved. Laboratory data showed INR 1.7 on admission Urinalysis showed cloudy with nitrite positive and large leukocyte esterase, RBCs 13 and WBC is 162 TSH 1.380 Troponin x1- Liver enzymes are not elevated No leukocytosis. Hemoglobin 15.0. 05/10/2020 Patient is currently lying in the bed comfortably. Awake alert and oriented x3. Tolerating oral diet. PT OT will be continued. Urine culture showed no growth so far. Patient is currently on antibiotics in the form of ceftriaxone. Follow-up repeat labs tomorrow. Anticipate discharge in the next 24 hours. Current medications reviewed. Objective - Vital Signs Vital signs: Vital Signs Temp 97.5 F L 05/10/20 11:27 Pulse 60 05/10/20 20:26 Resp 17 05/10/20 11:27 BP 117/71 05/10/20 11:27 Pulse Ox 91 L 05/10/20 11:27 Intake & Output 05/10/20 05/10/20 05/11/20 06:59 18:59 06:59 Intake Total 500 Balance 500 Intake: Oral 500 Other: Voiding Method Toilet Toilet # Voids 1 2 - Exam PHYSICAL EXAMINATION: Patient is lying in the bed comfortably, no acute distress, awake alert and oriented.. HEENT: Normocephalic. Neck is supple. Pupils reactive. Nostrils clear. Oral cavity is moist. Ears reveal no drainage. Neck reveals no JVD, carotid bruits, or thyromegaly. CHEST EXAMINATION: Trachea is central. Symmetrical expansion. Lung cevallos clear to auscultation and percussion. CARDIAC: Normal S1, S2 with no gallops. No murmurs ABDOMEN: Soft. Bowel sounds normal. No organomegaly. No abdominal bruits. Extremities: reveal no edema. No clubbing or cyanosis Neurologically awake, alert, oriented x3 with well-coordinated movements. No focal deficits noted Skin: No rash or skin lesions. Psychiatric: Coperative. Nonsuicidal Musculoskeletal: No joint swelling or deformity. Normal range of motion. - Labs CBC & Chem 7: 05/08/20 15:03 05/08/20 15:03 Labs: Abnormal Lab Results - Last 24 Hours (Table) 05/10/20 Range/Units 06:12 PT 16.3 H (9.0-12.0) sec INR 1.7 H (<1.2) Microbiology - Last 24 Hours (Table) 05/08/20 15:10 Urine Culture - Preliminary Urine,Voided Assessment and Plan Assessment: Altered mental status possible metabolic encephalopathy due to infection. Improved now Acute urinary tract infection Chronic CHF. Ejection fraction unknown Anxiety/depression, bipolar disorder Previous history of smoking History of alcohol abuse Hypertension GERD History of pulmonary embolism Subtherapeutic INR level Coumadin monitoring Plan: Patient will be continued on gentle hydration and antibiotics in the form of ceftriaxone. Continue with home medications including Lasix every 48 hours as per home medicine. Follow-up urine culture report. Patient will be started on PT OT and increase ambulation. Monitor INR level. Further recommendations based on the clinical course. Time with Patient: Greater than 30
[2020-05-11] MEDS: IPRATROPIUM 0.5 MG/2.5 ML NEBU INHALATION SCH (07:25)
[2020-05-11] MEDS: BUDESONIDE 1 MG/2 ML NEBU INHALATION SCH ×2 (07:25→19:51)
[2020-05-11 07:54] LABS: Basophils % (A) 0 %; Eosinophils # (A) 0.2 k/uL (0-0.7); Eosinophils % (A) 3 %; HCT 48.7 % (39.0-53.0); HGB 15.3 gm/dL (13.0-17.5); Lymphocytes # (A) 1.6 k/uL (1.0-4.8); Lymphocytes % (A) 24 %; MCH 29.4 pg (25.0-35.0); MCHC 31.5 g/dL (31.0-37.0); MCV 93.4 fL (80.0-100.0); Mean Platelet Volume 7.2; Monocytes # (A) 0.4 k/uL (0-1.0); Monocytes % (A) 6 %; Neutrophils # (A) 4.4 k/uL (1.3-7.7); Neutrophils % (A) 65 %; Platelet Count 205 k/uL (150-450); RBC 5.21 m/uL (4.30-5.90); RDW 14.7 % (11.5-15.5); WBC 6.8 k/uL (3.8-10.6)
[2020-05-11 07:58] LABS: Potassium 4.6 mmol/L (3.5-5.1)
[2020-05-11 08:11] LABS: INR 1.6 (<1.2); Prothrombin Time 15.9 sec (9.0-12.0)
[2020-05-11] MEDS: FLUTICASONE 50MCG/SPRAY NASAL 16GM EA NOSTRIL SCH (09:03)
[2020-05-11] MEDS: FUROSEMIDE 40 MG TAB PO SCH (09:04)
[2020-05-11] MEDS: LORATADINE 10 MG TAB PO SCH (09:04)
[2020-05-11] MEDS: LOSARTAN 25 MG TAB PO SCH ×2 (09:04→20:27)
[2020-05-11] MEDS: ARIPiprazole 5 MG TAB PO SCH (09:05)
--- NOTE | 2020-05-11 13:02 | CDI ---
Documentation Clarification Form Date: 05/11/2020 12:47:25 PM From: Ara Dotson RN CCDS Admit Date: 05/10/2020 02:50:00 PM Patient Name: Mihir Gottlieb Visit Number: [id number] Discharge Date: ATTENTION: The Clinical Documentation Specialists (CDI) and [facility] Coding Staff appreciate your assistance in clarifying documentation. Please respond to the clarification below the line at the bottom and electronically sign. The CDI & [facility] Coding staff will review the response and follow-up if needed. Please note: Queries are made part of the Legal Health Record. If you have any questions, please contact the author of this message via ITS. Dr. Sara Max Chronic CHF Ejection fraction unknown is documented in the H&P 05/09 History/Risk Factors: 74-year old male presents to the ED for low heart rate, slow and sluggish to answer questions and some exertional dyspnea. Medical history COPD, utis and CHF. Clinical Indicators: VS/Pulse OX: 109/67 64 98.2 18 97% ra 01/22/20 Echocardiogram Results: Mild concentric left ventricular hypertrophy. Overall left ventricular systolic function is low-normal with, an EF between 50- 55%. 05/08 Chest X Ray: Interstitial lung disease Treatment: 05/08 Cozaar 25mg PO BID ALIREZA, Toprol XL 25 mg PO HS ALIREZA, 05/09 Lasix 40mg PO Q48H ALIREZA In your professional opinion, can you please clarify the acuity and type of CHF if known? Chronic Diastolic Heart Failure Chronic Systolic & Diastolic Heart Failure: Unable to Determine Other, please specify (Last Revision: February 2018) Documented in DCS 05/12 - chronic congestive diastolic heart failure By Skyler TORRES/ Dr. Max Chronic Systolic & Diastolic [facility]
[2020-05-11] MEDS ORDERED: WARFARIN 3 MG TAB PO ONE (18:00)
[2020-05-11] MEDS: FLUoxetine HCL 20 MG CAP PO SCH (20:27)
[2020-05-11] MEDS: METOPROLOL SUCCINATE (ER) 25 MG TAB.ER.24H PO SCH (20:27)
[2020-05-11] MEDS: LOPERAMIDE 2 MG CAP PO SCH (20:27)
--- NOTE | 2020-05-11 23:42 | P.PN ---
Subjective Progress Note Date: 05/11/20 Principal diagnosis: Altered mental status possible metabolic encephalopathy due to infection. Improved now Acute urinary tract infection Patient is a 74-year-old male with a known history of hypertension, COPD, chronic CHF ejection fraction not known and history of pulmonary emboli currently on anticoagulation with Coumadin and also history of UTIs in the past was brought to the hospital by his family because of heart rate is in 40s. Patient is also more lethargic and sluggish to answers. As per family he noticed to have exertional dyspnea as well. Patient was confused and altered. Patient was brought to the hospital for evaluation. Arrives patient is afebrile. No cough or sputum production. No nausea vomiting or abdominal pain or diarrhea. Denied any complaints of chest pain or worsening shortness of breath. Patient lives with his nephew and has been taking medications regularly. CT head showed degenerative and nonspecific white matter changes most typical of remote white matter ischemia. Chest x-ray showed no acute cardiopulmonary process. Interstitial lung disease. Coronary artery disease. Aortic aneurysm. EKG showed sinus rhythm with occasional PVCs. Heart rate 66 on admission. Patient is currently awake alert and oriented and mental status seems to be improved. Laboratory data showed INR 1.7 on admission Urinalysis showed cloudy with nitrite positive and large leukocyte esterase, RBCs 13 and WBC is 162 TSH 1.380 Troponin x1- Liver enzymes are not elevated No leukocytosis. Hemoglobin 15.0. 05/10/2020 Patient is currently lying in the bed comfortably. Awake alert and oriented x3. Tolerating oral diet. PT OT will be continued. Urine culture showed no growth so far. Patient is currently on antibiotics in the form of ceftriaxone. Follow-up repeat labs tomorrow. Anticipate discharge in the next 24 hours. 05/11/2020 Patient is currently lying in the bed comfortably. Denied any complaints of chest pain or shortness of breath. Awake alert and oriented x3. Otherwise patient is not able to get out of bed. PT OT was consulted. Urine culture is not finalized. Continued on ceftriaxone. INR is subtherapeutic only at 1.6. Possible discharge to home with home physical therapy versus rehab. Current medications reviewed. Objective - Vital Signs Vital signs: Vital Signs Temp 97.8 F 05/11/20 13:00 Pulse 51 L 05/11/20 13:00 Resp 16 05/11/20 13:00 BP 123/71 05/11/20 13:00 Pulse Ox 93 L 05/11/20 13:00 Intake & Output 05/11/20 05/11/20 05/12/20 06:59 18:59 06:59 Other: Voiding Method Toilet Toilet # Voids 1 1 # Bowel Movements 1 - Exam PHYSICAL EXAMINATION: Patient is lying in the bed comfortably, no acute distress, awake alert and oriented.. HEENT: Normocephalic. Neck is supple. Pupils reactive. Nostrils clear. Oral cavity is moist. Ears reveal no drainage. Neck reveals no JVD, carotid bruits, or thyromegaly. CHEST EXAMINATION: Trachea is central. Symmetrical expansion. Lung cevallos clear to auscultation and percussion. CARDIAC: Normal S1, S2 with no gallops. No murmurs ABDOMEN: Soft. Bowel sounds normal. No organomegaly. No abdominal bruits. Extremities: reveal no edema. No clubbing or cyanosis Neurologically awake, alert, oriented x3 with well-coordinated movements. No focal deficits noted Skin: No rash or skin lesions. Psychiatric: Coperative. Nonsuicidal Musculoskeletal: No joint swelling or deformity. Normal range of motion. - Labs CBC & Chem 7: 05/11/20 07:17 05/11/20 07:17 Labs: Abnormal Lab Results - Last 24 Hours (Table) 05/11/20 05/11/20 Range/Units 07:17 07:17 PT 15.9 H (9.0-12.0) sec INR 1.6 H (<1.2) BUN 24 H (9-20) mg/dL Glucose 102 H (74-99) mg/dL Assessment and Plan Assessment: Altered mental status possible metabolic encephalopathy due to infection. Improved now Acute urinary tract infection Chronic CHF. Ejection fraction unknown Anxiety/depression, bipolar disorder Previous history of smoking History of alcohol abuse Hypertension GERD History of pulmonary embolism Subtherapeutic INR level Coumadin monitoring Plan: Patient will be continued on gentle hydration and antibiotics in the form of ceftriaxone. Continue with home medications including Lasix every 48 hours as per home medicine. Follow-up urine culture report. Patient will be started on PT OT and increase ambulation. Monitor INR level. Further recommendations based on the clinical course. Time with Patient: Greater than 30
[2020-05-12 06:32] VITALS: BP 146/86; PULSE 53; RESP 14; TEMP 97.4
[2020-05-12] MEDS: IPRATROPIUM 0.5 MG/2.5 ML NEBU INHALATION SCH (07:31)
[2020-05-12] MEDS: BUDESONIDE 1 MG/2 ML NEBU INHALATION SCH (07:31)
[2020-05-12 08:16] LABS: INR 1.9 (<1.2); Prothrombin Time 18.3 sec (9.0-12.0)
[2020-05-12] MEDS: ARIPiprazole 5 MG TAB PO SCH (09:05)
[2020-05-12] MEDS: LOSARTAN 25 MG TAB PO SCH (09:05)
[2020-05-12] MEDS: LORATADINE 10 MG TAB PO SCH (09:05)
[2020-05-12] MEDS: FLUTICASONE 50MCG/SPRAY NASAL 16GM EA NOSTRIL SCH (09:05)
[2020-05-12] MEDS ORDERED: WARFARIN 3 MG TAB PO ONE (18:00)
--- NOTE | 2020-05-13 08:23 | P.DS ---
Providers Date of admission: 05/10/20 14:50 Expected date of discharge: 05/12/20 Attending physician: Sara Max Primary care physician: Alvin Mott Hospital Course: Final diagnosis Altered mental status possible metabolic encephalopathy due to infection Acute urinary tract infection Chronic congestive diastolic heart failure Anxiety/depression, bipolar disorder Previous history of smoking History of alcohol abuse Hypertension GERD History of pulmonary embolism Subtherapeutic INR level Coumadin monitoring Discharge disposition Patient is being discharged in a stable condition with guarded prognosis to home and will follow-up with primary care provider Dr. Damon upon discharge. Patient also instructed to follow-up with cardiology, GI, surgery, and oncology in the outpatient setting. Appointments have been arranged. Patient will also continue with home care with Javier. Total time taken is 35 minutes. History of present illness This is a 74-year-old male who was recently admitted with bradycardia and l ethargic with some altered mental status and confusion and is being closely monitored. Patient lives with niece and she is his caregiver and were concerned for possible UTI. Patient's mentation improved with fluid hydration and was initiated on IV antibiotics. Urine cultures finalized showing no growth. Patient will be continued on a short course of oral Ceftin twice daily for the next 3 days upon discharge. Patient also continued to have some weakness and was evaluated by physical therapy and patient will continue at home with her niece and does have a walker. Patient will continue in the outpatient setting with physical therapy as needed. Currently patient has no chest pain, shortness of breath, or palpitations. Patient is afebrile. No reports of nausea or vomiting and patient is tolerating diet. Patient will be discharged today. On exam vital signs are stable. Temp is 97.4F, pulse is 53, respirations are 14, blood pressure is 146/86, oxygen saturation is 98% on 2 L via nasal cannula. Cardio S1, S2 are present. Respiratory system shows diminished breath sounds at the bases with no wheezing or rhonchi noted. Abdomen is soft and nontender. Nervous system shows no focal deficits. Please refer to medication reconciliation sheet for a list of medications. Patient Condition at Discharge: Fair Plan - Discharge Summary New Discharge Prescriptions: New Cefuroxime Axetil [Ceftin] 500 mg PO BID 3 Days #6 tab Continue Levocetirizine Dihydrochloride [Xyzal] 5 mg PO DAILY FLUoxetine HCL [PROzac] 20 mg PO HS Loperamide HCl [Imodium A-D] 4 mg PO HS ARIPiprazole [Abilify] 5 mg PO DAILY Fluticasone Nasal [place] [Flonase Nasal [place]] 2 spray EA NOSTRIL DAILY spr Losartan [Cozaar] 25 mg PO BID #60 tab Metoprolol Succinate (ER) [Toprol XL] 25 mg PO HS #30 tab.er.24h Furosemide [Lasix] 40 mg PO Q48H Ipratropium [place] [Atrovent Hfa] 2 puff INHALATION RT-DAILY Budesonide [Pulmicort] 2 ml INHALATION RT-BID Warfarin Sodium [Coumadin] 2.5 mg PO SUTUTH Warfarin Sodium [Coumadin] 5 mg PO MOWEFRSA Discharge Medication List Levocetirizine Dihydrochloride [Xyzal] 5 mg PO DAILY 11/23/18 [History] FLUoxetine HCL [PROzac] 20 mg PO HS 08/10/19 [History] Loperamide HCl [Imodium A-D] 4 mg PO HS 08/10/19 [History] ARIPiprazole [Abilify] 5 mg PO DAILY 08/11/19 [History] Fluticasone Nasal [place] [Flonase Nasal [place]] 2 spray EA NOSTRIL DAILY spr 08/13/19 [Rx] Losartan [Cozaar] 25 mg PO BID #60 tab 11/04/19 [Rx] Metoprolol Succinate (ER) [Toprol XL] 25 mg PO HS #30 tab.er.24h 11/04/19 [Rx] Furosemide [Lasix] 40 mg PO Q48H 12/29/19 [History] Budesonide [Pulmicort] 2 ml INHALATION RT-BID 05/08/20 [History] Ipratropium [place] [Atrovent Hfa] 2 puff INHALATION RT-DAILY 05/08/20 [History] Warfarin Sodium [Coumadin] 2.5 mg PO SUTUTH 05/08/20 [History] Warfarin Sodium [Coumadin] 5 mg PO MOWEFRSA 05/08/20 [History] Cefuroxime Axetil [Ceftin] 500 mg PO BID 3 Days #6 tab 05/12/20 [Rx] Follow up Appointment(s)/Referral(s): Alvin Mott MD [Primary Care Provider] - 05/15/20 3:30 pm Ambulatory/Diagnostic Orders: Prothrombin Time INR [LAB.AMB] Time Frame: 2 Days, Location: None Selected Patient Instructions/Handouts: Cefuroxime (By mouth), Urinary Tract Infection in Men (DC) Discharge Disposition: HOME SELF-CARE
== END 2020-05-12 17:54 | disposition home or self-care (01) | DRG 689 ==
LOC: EC 14:27 → 5NMEDONC 17:53 → OBSVTOIN 05-10 14:50
PROVIDERS: ADMIT Internal Medicine; ATTEND Internal Medicine
DX: N39.0 Urinary tract infection, site not specified (principal); G93.41 Metabolic encephalopathy; I50.32 Chronic diastolic (congestive) heart failure; J84.9 Interstitial pulmonary disease, unspecified; I67.82 Cerebral ischemia; Z11.59 Encounter for screening for other viral diseases; I71.2 Thoracic aortic aneurysm, without rupture; I11.0 Hypertensive heart disease with heart failure; J44.9 Chronic obstructive pulmonary disease, unspecified; F31.9 Bipolar disorder, unspecified; I49.3 Ventricular premature depolarization; K21.9 Gastro-esophageal reflux disease without esophagitis; F41.9 Anxiety disorder, unspecified; I25.10 Atherosclerotic heart disease of native coronary artery without angina pectoris; F10.11 Alcohol abuse, in remission; R00.1 Bradycardia, unspecified; R53.1 Weakness; R79.1 Abnormal coagulation profile; R40.2362 Coma scale, best motor response, obeys commands, at arrival to emergency department; R40.2142 Coma scale, eyes open, spontaneous, at arrival to emergency department; R40.2252 Coma scale, best verbal response, oriented, at arrival to emergency department; Z79.01 Long term (current) use of anticoagulants; Z79.899 Other long term (current) drug therapy; Z98.890 Other specified postprocedural states; Z87.440 Personal history of urinary (tract) infections; Z86.711 Personal history of pulmonary embolism; Z91.5 Personal history of self-harm; Z87.891 Personal history of nicotine dependence; Z83.3 Family history of diabetes mellitus; Z80.9 Family history of malignant neoplasm, unspecified
CPT/HCPCS: 36415; 70450; 71046; 80048; 80053; 81001; 82550; 83735; 84443; 84484; 85025; 85610; 85730; 87086; 93005; 94640; 94760; 99285

== ENCOUNTER 2020-05-22 14:17 | Emergency (ER) | payer MEDICARE ==
[2020-05-22 14:35] VITALS: RESP 18
[2020-05-22] MEDS ORDERED: HYDROcodone/APAP 5-325MG 1 EACH TAB PO STA (15:02)
--- NOTE | 2020-05-22 15:04 | ED ---
Fall HPI - General Chief Complaint: Fall Stated Complaint: Fall Time Seen by Provider: 05/22/20 14:38 Source: family, RN notes reviewed, old records reviewed Mode of arrival: ambulatory - History of Present Illness Initial Comments: Patient is 74-year-old male presents emergency Department today with complaints of back pain. Patient reports he went to sit outside in a lawn chair when he fell backwards onto the mid back and lower back. He is on Coumadin. Does complain of some neck strain and pain. Denies loss of consciousness. - Related Data Home Medications Medication Instructions Recorded Confirmed Levocetirizine Dihydrochloride 5 mg PO DAILY 11/23/18 05/08/20 [Xyzal] FLUoxetine HCL [PROzac] 20 mg PO HS 08/10/19 05/08/20 Loperamide HCl [Imodium A-D] 4 mg PO HS 08/10/19 05/08/20 ARIPiprazole [Abilify] 5 mg PO DAILY 08/11/19 05/08/20 Furosemide [Lasix] 40 mg PO Q48H 12/29/19 05/08/20 Budesonide [Pulmicort] 2 ml INHALATION RT-BID 05/08/20 05/09/20 Ipratropium [place] [Atrovent Hfa] 2 puff INHALATION RT-DAILY 05/08/20 05/08/20 Warfarin Sodium [Coumadin] 2.5 mg PO SUTUTH 05/08/20 05/08/20 Warfarin Sodium [Coumadin] 5 mg PO MOWEFRSA 05/08/20 05/08/20 Previous Rx's Medication Instructions Recorded Fluticasone Nasal [place] [Flonase 2 spray EA NOSTRIL DAILY spr 08/13/19 Nasal [place]] Losartan [Cozaar] 25 mg PO BID #60 tab 11/04/19 Metoprolol Succinate (ER) [Toprol 25 mg PO HS #30 tab.er.24h 11/04/19 XL] Cefuroxime Axetil [Ceftin] 500 mg PO BID 3 Days #6 tab 05/12/20 Cyclobenzaprine [Flexeril] 10 mg PO TID #12 tab 05/22/20 Ibuprofen [Motrin] 600 mg PO Q6HR PRN #12 tab 05/22/20 Allergies Allergy/AdvReac Type Severity Reaction Status Date / Time No Known Allergies Allergy Verified 05/22/20 14:35 Review of Systems ROS Statement: Those systems with pertinent positive or pertinent negative responses have been documented in the HPI. ROS Other: All systems not noted in ROS Statement are negative. Past Medical History Past Medical History: Heart Failure, COPD, GERD/Reflux, Hypertension Additional Past Medical History / Comment(s): pt states sexual issue in the past would not go into deals History of Any Multi-Drug Resistant Organisms: None Reported Past Surgical History: Adenoidectomy, Prostate Surgery Additional Past Surgical History / Comment(s): left wrist surgery 12 years ago Past Anesthesia/Blood Transfusion Reactions: No Reported Reaction Past Psychological History: Anxiety, Bipolar, Depression Smoking Status: Former smoker Past Alcohol Use History: None Reported Past Drug Use History: None Reported - Past Family History Mother Family Medical History: Cancer Father Family Medical History: Diabetes Mellitus General Exam - General Exam Comments Initial Comments: Alert and oriented 74-year-old male. No significant distress. Limitations: no limitations General appearance: alert, in no apparent distress Head exam: Present: atraumatic, normocephalic, normal inspection Eye exam: Present: normal appearance, PERRL, EOMI. Absent: scleral icterus, conjunctival injection, periorbital swelling ENT exam: Present: normal exam, mucous membranes moist Neck exam: Present: normal inspection, other (Patient is tenderness over the mid spine and neck.). Absent: tenderness, meningismus, lymphadenopathy Respiratory exam: Present: normal lung sounds bilaterally. Absent: respiratory distress, wheezes, rales, rhonchi, stridor Cardiovascular Exam: Present: regular rate, normal rhythm, normal heart sounds. Absent: systolic murmur, diastolic murmur, rubs, gallop, clicks GI/Abdominal exam: Present: soft, normal bowel sounds. Absent: distended, tenderness, guarding, rebound, rigid Extremities exam: Present: normal inspection, full ROM, normal capillary refill. Absent: tenderness, pedal edema, joint swelling, calf tenderness Back exam: Present: normal inspection, tenderness (Over her thoracic and lumbar spine), paraspinal tenderness, vertebral tenderness. Absent: CVA tenderness (R), CVA tenderness (L), muscle spasm Neurological exam: Present: alert, oriented X3, CN II-XII intact Psychiatric exam: Present: normal affect, normal mood Skin exam: Present: warm, dry, intact, normal color. Absent: rash Course Vital Signs 05/22/20 14:32 Temperature 98.7 F Pulse Rate 67 Respiratory 18 Rate Blood Pressure 107/63 O2 Sat by Pulse 93 L Oximetry Medical Decision Making - Medical Decision Making 74-year-old male. Since emergency room in today after falling backward from his lawn chair onto the lawn. He complains of some mid back and lower back tenderness and neck stiffness. She is on Coumadin. CT brain and C-spine are negative for acute process. No fracture. Thoracic and lumbar spine x-ray show no fracture. Patient is able to ambulate with no other complaints. He denies any abdominal pain with no abdominal bruising or back bruising. No abdominal tenderness chest pain or shortness of breath. Patient will be discharged at this time with muscle x-ray temperature medicine. Discussed follow-up. - Radiology Data Radiology results: report reviewed CT of the brain shows age-related atrophy and chronic small vessel ischemic changes without acute intracranial process at this time. CT of the C-spine shows no evidence of acute fracture subluxation. Chest x-rays negative for any acute pulmonary disease. No fracture seen and thoracic spine. No fracture seen lumbar spine. Disposition Clinical Impression: Fall, Back pain Disposition: HOME SELF-CARE Condition: Good Instructions (If sedation given, give patient instructions): Fall Prevention for Older Adults (ED), Acute Low Back Pain (ED) Additional Instructions: Patient is a take anti-inflammatory medication as prescribed. Return to emergency department if any alarming signs or symptoms occur. Prescriptions: Cyclobenzaprine [Flexeril] 10 mg PO TID #12 tab Ibuprofen [Motrin] 600 mg PO Q6HR PRN #12 tab PRN Reason: Pain Is patient prescribed a controlled substance at d/c from ED?: No Referrals: Alvin Mott MD [Primary Care Provider] - 1-2 days Time of Disposition: 16:38
[2020-05-22] MEDS ORDERED: CYCLOBENZAPRINE 10MG STARTER 3 TAB BTL PO STA (15:17)
--- NOTE | 2020-05-22 16:03 | CT ---
EXAMINATION TYPE: CT brain deidre wo con DATE OF EXAM: 05/22/2020 COMPARISON: 05/08/2020 HISTORY: Fall, neck pain, patient on blood thinners. CT DLP: 1650.[address] of the brain was performed. The ventricles, basal cisterns and sulci overlying the cerebral convexities demonstrate mild enlargem ent. There is no evidence for intracranial hemorrhage or sulcal effacement. There is decreased attenuatio n about the periventricular white matter and deep white matter of both cerebral hemispheres, compatib le with chronic small vessel ischemia. No mass effects are seen. If symptoms persist consider MRI. Osseous calvarium is intact. IMPRESSION: 1. Age related atrophic and chronic small vessel ischemic change without acute intracranial process seen at this time. CT Cervical Spine: Unenhanced CT of the cervical spine was performed with bone and soft tissue window settings submitted . Coronal and sagittal reconstruction is obtained. There is normal alignment and prevertebral soft tissues. No evidence for acute cervical fracture . Scattered degenerative disc disease and spondylosis. Biapical scarring. IMPRESSION: 1. No evidence for acute fracture or subluxation of the cervical spine.
--- NOTE | 2020-05-22 16:09 | XR ---
EXAMINATION TYPE: XR chest 2V DATE OF EXAM: 05/22/2020 COMPARISON: 05/08/2020 HISTORY: Shortness of breath TECHNIQUE: Frontal and lateral views of the chest are obtained. FINDINGS: Scattered senescent parenchymal changes noted. Hyperinflation compatible with COPD. No evidence for infiltrate. No evidence for atelectasis. Heart size is stable. Mediastinal structures are stable and grossly unremarkable. No evidence for hilar prominence. Degenerative changes dorsal spine. IMPRESSION: 1. No evidence for acute pulmonary disease.
--- NOTE | 2020-05-22 16:10 | XR ---
EXAMINATION TYPE: XR thoracic spine 2V DATE OF EXAM: 05/22/2020 CLINICAL HISTORY: pain TECHNIQUE: Frontal, lateral, and swimmer's view of thoracic spine are obtained. COMPARISON: None. FINDINGS: Thoracic spine show satisfactory alignment without evidence of acute fracture or dislocatio n. Vertebral body heights are preserved. Moderate multilevel degenerative disc space narrowing and s pondylosis. Visualized ribs are unremarkable. IMPRESSION: No acute fracture or dislocation is seen in the thoracic spine. ICD 10 NO FRACTURE, INIT IAL EVALUATION
--- NOTE | 2020-05-22 16:11 | XR ---
EXAMINATION TYPE: XR lumbar spine 2 or 3V DATE OF EXAM: 05/22/2020 CLINICAL HISTORY: pain TECHNIQUE: Three views of the lumbar spine are submitted. COMPARISON: None. FINDINGS: There are 5 lumbar type vertebral bodies identified. The lumbar spine shows satisfactory alignment w ithout evidence of acute fracture or dislocation. Vertebral body heights are within normal limits. Moderate to severe multilevel degenerative disc disease and spondylosis. The overlying soft tissue a ppears unremarkable. IMPRESSION: No acute fracture or dislocation is seen in the lumbar spine. ICD 10 NO FRACTURE, INITIAL EVALUATION
[2020-05-22] MEDS ORDERED: ACET/COD 300 MG/30 MG STARTER PACK 6 TAB BTL PO STA (16:39)
[2020-05-22 16:56] VITALS: BP 118/72; PULSE 62; TEMP 98.5
== END 2020-05-22 16:56 | disposition home or self-care (01) ==
LOC: EC 14:17
DX: M54.5 Low back pain (principal); M54.6 Pain in thoracic spine; M43.6 Torticollis; I11.0 Hypertensive heart disease with heart failure; I50.9 Heart failure, unspecified; J44.9 Chronic obstructive pulmonary disease, unspecified; F41.9 Anxiety disorder, unspecified; F31.9 Bipolar disorder, unspecified; Z79.01 Long term (current) use of anticoagulants; Z79.51 Long term (current) use of inhaled steroids; Z79.899 Other long term (current) drug therapy; Z87.891 Personal history of nicotine dependence; W07.XXXA Fall from chair, initial encounter; Y93.89 Activity, other specified; Y92.89 Other specified places as the place of occurrence of the external cause
CPT/HCPCS: 70450; 71046; 72070; 72100; 72125; 99284

== ENCOUNTER → 2020-06-02 | Outpatient (CLI) | payer MEDICARE, OTHER ==
--- NOTE | 2020-06-02 09:45 | US ---
EXAMINATION TYPE: US venous doppler duplex LE DATE OF EXAM: 06/02/2020 9:18 AM COMPARISON: CLINICAL HISTORY: I82.5Z9 Deep Vein Thrombosis. Hx bilateral DVT. On coumadin. SIDE PERFORMED: Bilateral TECHNIQUE: The lower extremity deep venous system is examined utilizing real time linear array sonog santiago with graded compression, doppler sonography and color-flow sonography. VESSELS IMAGED: External Iliac Vein (EIV) Common Femoral Vein Deep Femoral Vein Greater Saphenous Vein * Femoral Vein Popliteal Vein Small Saphenous Vein * Proximal Calf Veins (* superficial vessels) Right Leg: Negative for DVT Left Leg: Negative for DVT IMPRESSION: 1. No diagnostic evidence of DVT as visualized.
--- NOTE | 2020-06-02 11:06 | CT ---
EXAMINATION TYPE: CT angio chest DATE OF EXAM: 06/02/2020 COMPARISON: 01/22/2020 HISTORY: 74-year-old male Deep vein thrombosis. TECHNIQUE: Contiguous axial scanning of the chest performed with IV Contrast, patient injected with 1 00 mL of Isovue 370. Coronal/sagittal MIP reconstructions performed. CT DLP: 685 mGycm Automated exposure control for dose reduction was used. FINDINGS: Heart normal size without pericardial effusion. Extensive three-vessel coronary artery calcifications are present. No flattening of the interventricular septum or reflux of contrast into the hepatic vei ns. Mild aneurysm ascending aorta at 4.0 cm. Mild atherosclerotic arch calcifications with conventional o rifice of branching anatomy. 3.6 cm aneurysmal enlargement upper and mid descending thoracic aorta. Nonenlarged and a few borderline to mildly enlarged mediastinal lymph nodes are redemonstrated measur ing up to 1.3 cm lower right paratracheal lymph node, unchanged from 01/22/2020. Satisfactory opacification of the pulmonary arterial system. Large caliber to the main right and left pulmonary arteries measuring up to 3.3 cm. Interval clearance of the previous bilateral pulmonary emboli. No residual clot is seen. Reticular subpleural changes in the periphery of the right greater than left mid and lower lungs. Partha e subpleural microcystic change and peripheral groundglass is present along with traction bronchiolec tasis. Scattered mild emphysema. Calcified granuloma peripheral left lower lobe, axial image 112 is unchanged. A few additional tiny c alcific granulomas, for example, left upper lobe, axial image 78 are unchanged. No new consolidation or pleural effusion. Tiny hiatal hernia. Visualized upper abdomen shows a couple gallstones measuring up to 7 mm. Low dens ity thickening left adrenal gland unchanged back to 02/21/2017, possible adrenal hyperplasia. Bones: Old healed left-sided rib fracture deformities. Bridging anterior endplate spondylosis upper a nd mid thoracic spine compatible with DISH. IMPRESSION: 1. INTERVAL CLEARANCE OF THE PREVIOUS BILATERAL PULMONARY EMBOLI. PULMONARY ARTERIAL HYPERTENSION REM AINS. 2. CAD WITH EXTENSIVE THREE-VESSEL CORONARY ARTERY CALCIFICATIONS. ANEURYSMAL THORACIC AORTA (ASCENDI NG 4.0 CM AND DESCENDING 3.6 CM). 3. SUBPLEURAL RETICULATION, GROUNDGLASS, AND MICROCYSTIC CHANGE. CONSIDER CHRONIC HYPERSENSITIVITY PN EUMONITIS OR NSIP IN THE DIFFERENTIAL. BACKGROUND OF MILD COPD. 4. TINY HIATAL HERNIA AND CHOLELITHIASIS.
== END | disposition home or self-care (01) ==
LOC: RADCTMAIN 08:42
PROVIDERS: ATTEND Internal Medicine Hematology & Oncology
DX: I82.5Z9 Chronic embolism and thrombosis of unspecified deep veins of unspecified distal lower extremity (principal); I25.10 Atherosclerotic heart disease of native coronary artery without angina pectoris; I71.2 Thoracic aortic aneurysm, without rupture; J44.9 Chronic obstructive pulmonary disease, unspecified; K44.9 Diaphragmatic hernia without obstruction or gangrene; I27.21 Secondary pulmonary arterial hypertension; Z86.711 Personal history of pulmonary embolism
CPT/HCPCS: 82565; 84520; 93970; 71275; 36415; Q9967

== ENCOUNTER 2020-06-15 20:42 | Inpatient (IN) | payer MEDICARE ==
[2020-06-15] MEDS ORDERED: IPRATROPIUM-ALBUTEROL 3 ML NEB INHALATION STA (21:13)
[2020-06-15] MEDS ORDERED: ALBUTEROL NEBULIZED 2.5 MG/3 ML INHALATION STA (21:13)
[2020-06-15] MEDS ORDERED: MAGNESIUM SULFATE-D5W PMX 1 GM in DEXTROSE/WATER 1 100ML.BAG IVPB ONE (21:14)
[2020-06-15] MEDS ORDERED: methylPREDNISolone SOD SUCCI 125 MG/2 ML VIAL IV STA (21:14)
[2020-06-15 21:37] LABS: Basophils % (A) 0 %; Eosinophils # (A) 0.2 k/uL (0-0.7); Eosinophils % (A) 2 %; HCT 44.8 % (39.0-53.0); HGB 14.6 gm/dL (13.0-17.5); Lymphocytes # (A) 1.5 k/uL (1.0-4.8); Lymphocytes % (A) 20 %; MCH 29.8 pg (25.0-35.0); MCHC 32.6 g/dL (31.0-37.0); MCV 91.6 fL (80.0-100.0); Mean Platelet Volume 7.5; Monocytes # (A) 0.4 k/uL (0-1.0); Monocytes % (A) 5 %; Neutrophils % (A) 70 %; Platelet Count 196 k/uL (150-450); RDW 14.2 % (11.5-15.5); WBC 7.2 k/uL (3.8-10.6)
[2020-06-15 21:47] LABS: ALT 19 U/L (4-49); AST 37 U/L (17-59); African American GFR (CKD) >90 (>60 ml/min/1.73 sqM); Albumin 3.9 g/dL (3.5-5.0); Alkaline Phosphatase 74 U/L (38-126); Anion Gap 10 mmol/L; Blood Urea Nitrogen 20 mg/dL (9-20); Calcium 8.7 mg/dL (8.4-10.2); Carbon Dioxide 27 mmol/L (22-30); Chloride 101 mmol/L (98-107); Glucose 145 mg/dL (74-99); Non-African American GFR(CKD) 79 (>60 ml/min/1.73 sqM); Potassium 3.2 mmol/L (3.5-5.1); Sodium 138 mmol/L (137-145); Total Bilirubin 0.6 mg/dL (0.2-1.3); Total Protein 6.7 g/dL (6.3-8.2)
[2020-06-15 21:48] LABS: INR 2.4 (<1.2); Partial Thromboplastin Time 33.9 sec (22.0-30.0); Prothrombin Time 23.8 sec (9.0-12.0)
[2020-06-15 21:58] LABS: ABG Base Excess 4.7 mmol/L; ABG HCO3 27 mmol/L (21-25); ABG Oxygen Saturation 99.7 % (94-97); ABG PCO2 32 mmHg (35-45); ABG PH 7.53 (7.35-7.45); ABG PO2 288 mmHg (83-108); ABG TCO2 28 mmol/L (19-24); Allen Test Performed? Yes
--- NOTE | 2020-06-15 22:06 | XR ---
EXAMINATION TYPE: XR chest 1V DATE OF EXAM: 06/15/2020 COMPARISON: 05/22/2020 HISTORY: Pain. Difficulty breathing TECHNIQUE: Single view FINDINGS: There is no heart failure nor confluent pneumonic infiltrate. Thoracic aorta is atheromatou s. Costophrenic angles are fairly clear. There is slight coarsening of interstitial markings. IMPRESSION: Minimal fibrotic changes. No heart failure.
--- NOTE | 2020-06-15 22:54 | ED ---
SOB HPI - General Chief Complaint: Shortness of Breath Stated Complaint: COPD, Shortness of Breath Time Seen by Provider: 06/15/20 20:50 Source: patient, family Mode of arrival: wheelchair Limitations: no limitations - History of Present Illness Initial Comments: Patient is a 74-year-old male past history of heart failure, COPD, mood disorder who presents emergency Department with reported shortness of breath. Patient is a very poor historian. His daughter is at bedside provides the history. States that he has been short of breath for the past day. He has a history of COPD and sees Dr. Mar in office. Patient is not on oxygen at home. Patient has had purse lip breathing which appears to be getting worse. He has been doing nebulizer treatments every 4 hours however has not helped his breathing. Denies any worsening lower extremity edema. Patient has DVT and PE history. He is currently on Coumadin. Reports that his INR was therapeutic a few days ago. Patient denies any chest pain. No cough or hemoptysis. No sick contacts with similar symptoms. No other alleviating, Perceptin or modifying factors - Related Data Home Medications Medication Instructions Recorded Confirmed Levocetirizine Dihydrochloride 5 mg PO DAILY 11/23/18 06/15/20 [Xyzal] FLUoxetine HCL [PROzac] 20 mg PO HS 08/10/19 06/15/20 Loperamide HCl [Imodium A-D] 4 mg PO HS 08/10/19 06/15/20 ARIPiprazole [Abilify] 5 mg PO HS 08/11/19 06/15/20 Budesonide [Pulmicort] 2 ml INHALATION RT-QID@08,,,05/08/20 06/15/20 Ipratropium [place] [Atrovent Hfa] 2 puff INHALATION RT-DAILY 05/08/20 06/15/20 Warfarin Sodium [Coumadin] 2.5 mg PO TUTH 05/08/20 06/15/20 Warfarin Sodium [Coumadin] 5 mg PO SUMOWEFRSA 05/08/20 06/15/20 Previous Rx's Medication Instructions Recorded Fluticasone Nasal [place] [Flonase 2 spray EA NOSTRIL DAILY spr 08/13/19 Nasal [place]] Losartan [Cozaar] 25 mg PO BID #60 tab 11/04/19 Metoprolol Succinate (ER) [Toprol 25 mg PO HS #30 tab.er.24h 11/04/19 XL] ALPRAZolam [Xanax] 0.25 mg PO Q8HR PRN 3 Days #9 tab 06/16/20 Allergies Allergy/AdvReac Type Severity Reaction Status Date / Time No Known Allergies Allergy Verified 06/15/20 22:10 Review of Systems ROS Statement: Those systems with pertinent positive or pertinent negative responses have been documented in the HPI. ROS Other: All systems not noted in ROS Statement are negative. Past Medical History Past Medical History: Heart Failure, COPD, GERD/Reflux, Hypertension Additional Past Medical History / Comment(s): pt states sexual issue in the past would not go into deals History of Any Multi-Drug Resistant Organisms: None Reported Past Surgical History: Adenoidectomy, Prostate Surgery Additional Past Surgical History / Comment(s): left wrist surgery 12 years ago Past Anesthesia/Blood Transfusion Reactions: No Reported Reaction Past Psychological History: Anxiety, Bipolar, Depression Past Alcohol Use History: None Reported Past Drug Use History: None Reported - Past Family History Mother Family Medical History: Cancer Father Family Medical History: Diabetes Mellitus General Exam Limitations: physical limitation General appearance: alert, anxious, in distress Head exam: Present: atraumatic, normocephalic Eye exam: Present: normal appearance, PERRL, EOMI. Absent: scleral icterus, conjunctival injection, periorbital swelling ENT exam: Present: normal exam, mucous membranes moist Neck exam: Present: normal inspection. Absent: tenderness, meningismus, lymphadenopathy Respiratory exam: Present: respiratory distress, accessory muscle use, decreased breath sounds, other (purse lipped breathing. Tachypnia. ) Cardiovascular Exam: Present: normal rhythm, tachycardia GI/Abdominal exam: Present: soft, normal bowel sounds. Absent: distended, tenderness, guarding, rebound, rigid Neurological exam: Present: alert, oriented X3, CN II-XII intact Psychiatric exam: Present: flat affect Course Vital Signs 06/15/20 06/15/20 06/15/20 20:46 21:00 21:30 Temperature 98.7 F Pulse Rate 81 71 Respiratory 40 H 44 H Rate Blood Pressure 112/77 109/59 O2 Sat by Pulse 93 L 94 L Oximetry 06/15/20 06/15/20 06/15/20 21:34 22:00 22:40 Temperature Pulse Rate 70 72 71 Respiratory 18 Rate Blood Pressure 118/74 117/95 O2 Sat by Pulse 94 L Oximetry 06/15/20 06/15/20 22:41 23:50 Temperature Pulse Rate 69 Respiratory 18 23 Rate Blood Pressure 115/74 O2 Sat by Pulse 95 Oximetry Medical Decision Making - Medical Decision Making Upon arrival patient placed in room 4. A thorough history of physical exam is performed. Patient has pursed lip breathing with tachypnia. Because of this the patient is placed on BiPAP. Periphery is established. Laboratory studies w ere conducted. Lab studies are markable for an INR 2.4. Potassium 3.2. ABGs drawn which demonstrates a pH of 7.3, CO2 32, O2 288. Lactic acid is 3.3. Troponin is negative. Chest x-ray is performed which demonstrates minimal fibrotic changes. Patient was given 1 g of magnesium, 2 breathing treatments and 125 mg of Solu-Medrol. I did recommend hospital admission for evaluation by pulmonology. I will continue the patient's steroids and breathing treatments. Patient did agree to this. He was then transferred to floor in stable condition - Lab Data Result diagrams: 06/16/20 03:02 06/16/20 03:02 Lab Results 06/15/20 06/15/20 06/15/20 Range/Units 21:28 21:28 21:28 WBC 7.2 (3.8-10.6) k/uL RBC 4.90 (4.30-5.90) m/uL Hgb 14.6 (13.0-17.5) gm/dL Hct 44.8 (39.0-53.0) % MCV 91.6 (80.0-100.0) fL MCH 29.8 (25.0-35.0) pg MCHC 32.6 (31.0-37.0) g/dL RDW 14.2 (11.5-15.5) % Plt Count 196 (150-450) k/uL Neutrophils % 70 % Lymphocytes % 20 % Monocytes % 5 % Eosinophils % 2 % Basophils % 0 % Neutrophils # 5.0 (1.3-7.7) k/uL Lymphocytes # 1.5 (1.0-4.8) k/uL Monocytes # 0.4 (0-1.0) k/uL Eosinophils # 0.2 (0-0.7) k/uL Basophils # 0.0 (0-0.2) k/uL PT 23.8 H (9.0-12.0) sec INR 2.4 H (<1.2) APTT 33.9 H (22.0-30.0) sec Sample Site ABG pH (7.35-7.45) ABG pCO2 (35-45) mmHg ABG pO2 (83-108) mmHg ABG HCO3 (21-25) mmol/L ABG Total CO2 (19-24) mmol/L ABG O2 Saturation (94-97) % ABG Base Excess mmol/L Billy Test FiO2 % Sodium 138 (137-145) mmol/L Potassium 3.2 L (3.5-5.1) mmol/L Chloride 101 (98-107) mmol/L Carbon Dioxide 27 (22-30) mmol/L Anion Gap 10 mmol/L BUN 20 (9-20) mg/dL Creatinine 0.94 (0.66-1.25) mg/dL Est GFR (CKD-EPI)AfAm >90 (>60 ml/min/1.73 sqM) Est GFR (CKD-EPI)NonAf 79 (>60 ml/min/1.73 sqM) Glucose 145 H (74-99) mg/dL Lactic Ac Sepsis Rflx Plasma Lactic Acid Scooter (0.7-2.0) mmol/L Calcium 8.7 (8.4-10.2) mg/dL Total Bilirubin 0.6 (0.2-1.3) mg/dL AST 37 (17-59) U/L ALT 19 (4-49) U/L Alkaline Phosphatase 74 (38-126) U/L Troponin I (0.000-0.034) ng/mL NT-Pro-B Natriuret Pep pg/mL Total Protein 6.7 (6.3-8.2) g/dL Albumin 3.9 (3.5-5.0) g/dL 06/15/20 06/15/20 06/15/20 Range/Units 21:28 21:28 21:28 WBC (3.8-10.6) k/uL RBC (4.30-5.90) m/uL Hgb (13.0-17.5) gm/dL Hct (39.0-53.0) % MCV (80.0-100.0) fL MCH (25.0-35.0) pg MCHC (31.0-37.0) g/dL RDW (11.5-15.5) % Plt Count (150-450) k/uL Neutrophils % % Lymphocytes % % Monocytes % % Eosinophils % % Basophils % % Neutrophils # (1.3-7.7) k/uL Lymphocytes # (1.0-4.8) k/uL Monocytes # (0-1.0) k/uL Eosinophils # (0-0.7) k/uL Basophils # (0-0.2) k/uL PT (9.0-12.0) sec INR (<1.2) APTT (22.0-30.0) sec Sample Site ABG pH (7.35-7.45) ABG pCO2 (35-45) mmHg ABG pO2 (83-108) mmHg ABG HCO3 (21-25) mmol/L ABG Total CO2 (19-24) mmol/L ABG O2 Saturation (94-97) % ABG Base Excess mmol/L Billy Test FiO2 % Sodium (137-145) mmol/L Potassium (3.5-5.1) mmol/L Chloride (98-107) mmol/L Carbon Dioxide (22-30) mmol/L Anion Gap mmol/L BUN (9-20) mg/dL Creatinine (0.66-1.25) mg/dL Est GFR (CKD-EPI)AfAm (>60 ml/min/1.73 sqM) Est GFR (CKD-EPI)NonAf (>60 ml/min/1.73 sqM) Glucose (74-99) mg/dL Lactic Ac Sepsis Rflx Plasma Lactic Acid Scooter 3.3 H* (0.7-2.0) mmol/L Calcium (8.4-10.2) mg/dL Total Bilirubin (0.2-1.3) mg/dL AST (17-59) U/L ALT (4-49) U/L Alkaline Phosphatase (38-126) U/L Troponin I <0.012 (0.000-0.034) ng/mL NT-Pro-B Natriuret Pep 337 pg/mL Total Protein (6.3-8.2) g/dL Albumin (3.5-5.0) g/dL 06/15/20 06/15/20 Range/Units 21:48 21:54 WBC (3.8-10.6) k/uL RBC (4.30-5.90) m/uL Hgb (13.0-17.5) gm/dL Hct (39.0-53.0) % MCV (80.0-100.0) fL MCH (25.0-35.0) pg MCHC (31.0-37.0) g/dL RDW (11.5-15.5) % Plt Count (150-450) k/uL Neutrophils % % Lymphocytes % % Monocytes % % Eosinophils % % Basophils % % Neutrophils # (1.3-7.7) k/uL Lymphocytes # (1.0-4.8) k/uL Monocytes # (0-1.0) k/uL Eosinophils # (0-0.7) k/uL Basophils # (0-0.2) k/uL PT (9.0-12.0) sec INR (<1.2) APTT (22.0-30.0) sec Sample Site RAD ABG pH 7.53 H (7.35-7.45) ABG pCO2 32 L (35-45) mmHg ABG pO2 288 H (83-108) mmHg ABG HCO3 27 H (21-25) mmol/L ABG Total CO2 28 H (19-24) mmol/L ABG O2 Saturation 99.7 H (94-97) % ABG Base Excess 4.7 mmol/L Billy Test Yes FiO2 35 % Sodium (137-145) mmol/L Potassium (3.5-5.1) mmol/L Chloride (98-107) mmol/L Carbon Dioxide (22-30) mmol/L Anion Gap mmol/L BUN (9-20) mg/dL Creatinine (0.66-1.25) mg/dL Est GFR (CKD-EPI)AfAm (>60 ml/min/1.73 sqM) Est GFR (CKD-EPI)NonAf (>60 ml/min/1.73 sqM) Glucose (74-99) mg/dL Lactic Ac Sepsis Rflx Y Plasma Lactic Acid Scooter (0.7-2.0) mmol/L Calcium (8.4-10.2) mg/dL Total Bilirubin (0.2-1.3) mg/dL AST (17-59) U/L ALT (4-49) U/L Alkaline Phosphatase (38-126) U/L Troponin I (0.000-0.034) ng/mL NT-Pro-B Natriuret Pep pg/mL Total Protein (6.3-8.2) g/dL Albumin (3.5-5.0) g/dL - EKG Data EKG Comments: EKG demonstrates normal since rhythm with a ventricular rate of 69. Panel 160. QRS 84. QTC of 458. No acute ST segment elevations or depressions concerning for ischemic changes Critical Care Time Critical Care Time: Yes Critical Care Time: 32 minutes Disposition Clinical Impression: Acute exacerbation of chronic obstructive pulmonary disease (COPD), BiPAP (biphasic positive airway pressure) dependence Disposition: ADMITTED IP TO THIS HOSP Condition: Stable Is patient prescribed a controlled substance at d/c from ED?: No Decision to Admit Reason: Admit from EC Decision Date: 06/15/20 Decision Time: 23:04
[2020-06-15] MEDS ORDERED: LORazepam 2 MG/ML INJ IV STA (23:03)
[2020-06-15] MEDS ORDERED: NALOXONE 0.4 MG/ML 1 ML VIAL IV PRN (23:04)
[2020-06-15] MEDS ORDERED: POTASSIUM CHLORIDE ER 20 MEQ TAB.ER PO STA (23:49)
[2020-06-16] MEDS: IPRATROPIUM-ALBUTEROL 3 ML NEB INHALATION SCH ×4 (00:01→12:49)
[2020-06-16] MEDS ORDERED: WARFARIN 2.5 MG TAB PO SCH (00:30)
[2020-06-16] MEDS: methylPREDNISolone SOD SUCCI 40 MG/ML 1 ML VIAL IV SCH ×2 (01:13→08:45)
[2020-06-16 03:16] LABS: Basophils % (A) 0 %; Eosinophils # (A) 0.1 k/uL (0-0.7); Eosinophils % (A) 1 %; HCT 45.8 % (39.0-53.0); HGB 15.2 gm/dL (13.0-17.5); Lymphocytes # (A) 0.5 k/uL (1.0-4.8); Lymphocytes % (A) 6 %; MCH 30.7 pg (25.0-35.0); MCHC 33.3 g/dL (31.0-37.0); MCV 92.1 fL (80.0-100.0); Mean Platelet Volume 7.2; Monocytes # (A) 0.1 k/uL (0-1.0); Monocytes % (A) 2 %; Neutrophils # (A) 6.9 k/uL (1.3-7.7); Neutrophils % (A) 91 %; Platelet Count 158 k/uL (150-450); RBC 4.97 m/uL (4.30-5.90); RDW 14.2 % (11.5-15.5); WBC 7.6 k/uL (3.8-10.6)
[2020-06-16 03:20] LABS: INR 2.8 (<1.2); Prothrombin Time 27.2 sec (9.0-12.0)
[2020-06-16 03:28] LABS: Potassium 3.9 mmol/L (3.5-5.1)
[2020-06-16 07:57] VITALS: TEMP 98.3
[2020-06-16] MEDS ORDERED: FLUTICASONE 50MCG/SPRAY NASAL 16GM EA NOSTRIL SCH (09:00)
[2020-06-16] MEDS ORDERED: LOSARTAN 25 MG TAB PO SCH (09:00)
[2020-06-16] MEDS ORDERED: LORATADINE 10 MG TAB PO SCH (09:00)
[2020-06-16] MEDS ORDERED: FUROSEMIDE 40 MG TAB PO SCH (09:00)
[2020-06-16] MEDS: BUDESONIDE 1 MG/2 ML NEBU INHALATION SCH ×2 (09:11→12:49)
[2020-06-16] MEDS ORDERED: SODIUM CHLORIDE 0.9% 1,000 ML IV SCH (10:00)
[2020-06-16 11:53] LABS: Glucose,Whole Blood 179 mg/dL (75-99)
[2020-06-16 12:12] VITALS: BP 164/88; RESP 20
--- NOTE | 2020-06-16 12:16 | P.HPIM ---
History of Present Illness Patient is a 74-year-old male with the known history of COPD came in with comments of shortness of breath. Patient was having positive breathing because of which patient was believed to have COPD was treated for COPD patient although had an ABG which showed pH of 7.53 pCO2 32 I believe this is on BiPAP he was initially started on BiPAP. Patient is not wheezing on exam patient is comparing of cough without any significant sputum production. Patient denied any fever chills. She denied any orthopnea PND patient does use a tennis of onset at home patient is saturating fairly well to response and. Patient has mildly elevated lactic acid without any evidence of sepsis at this time. We'll continue with fluids will repeat on the lactic acid again and if it starts coming down patient will be discharged today. Review of Systems REVIEW OF SYSTEMS: CONSTITUTIONAL: No fever, no malaise, no fatigue. HEENT: No recent visual problems or hearing problems. Denied any sore throat. CARDIOVASCULAR: No chest pain, orthopnea, PND, no palpitations, no syncope. PULMONARY no hemoptysis. GASTROINTESTINAL: No diarrhea, no nausea, no vomiting, no abdominal pain. NEUROLOGICAL: No headaches, no weakness, no numbness. HEMATOLOGICAL: Denies any bleeding or petechiae. GENITOURINARY: Denies any burning micturition, frequency, or urgency. MUSCULOSKELETAL/RHEUMATOLOGICAL: Denies any joint pain, swelling, or any muscle pain. ENDOCRINE: Denies any polyuria or polydipsia. The rest of the 14-point review of systems is negative. Past Medical History Past Medical History: Heart Failure, COPD, GERD/Reflux, Hypertension Additional Past Medical History / Comment(s): pt states sexual issue in the past would not go into deals History of Any Multi-Drug Resistant Organisms: None Reported Past Surgical History: Adenoidectomy, Prostate Surgery Additional Past Surgical History / Comment(s): left wrist surgery 12 years ago Past Anesthesia/Blood Transfusion Reactions: No Reported Reaction Past Psychological History: Anxiety, Bipolar, Depression Additional Psychological History / Comment(s): Patient caregiver states that symptoms have been worse since incarceration in June 2019, previous suicide attempt by cutting left wrist "years ago", per patient. no vocalization of any feelings this way. Smoking Status: Former smoker Past Alcohol Use History: None Reported Additional Past Alcohol Use History / Comment(s): pt states he used to drink daily but quit 6 months ago Past Drug Use History: None Reported - Past Family History Mother Family Medical History: Cancer Father Family Medical History: Diabetes Mellitus Medications and Allergies Home Medications Medication Instructions Recorded Confirmed Type Levocetirizine Dihydrochloride 5 mg PO DAILY 11/23/18 06/15/20 History [Xyzal] FLUoxetine HCL [PROzac] 20 mg PO HS 08/10/19 06/15/20 History Loperamide HCl [Imodium A-D] 4 mg PO HS 08/10/19 06/15/20 History ARIPiprazole [Abilify] 5 mg PO HS 08/11/19 06/15/20 History Fluticasone Nasal [place] [Flonase 2 spray EA NOSTRIL DAILY spr 08/13/19 06/15/20 Rx Nasal [place]] Losartan [Cozaar] 25 mg PO BID #60 tab 11/04/19 06/15/20 Rx Metoprolol Succinate (ER) [Toprol 25 mg PO HS #30 tab.er.24h 11/04/19 06/15/20 Rx XL] Budesonide [Pulmicort] 2 ml INHALATION RT-QID@08,12,,20 05/08/20 06/15/20 History Ipratropium [place] [Atrovent Hfa] 2 puff INHALATION RT-DAILY 05/08/20 06/15/20 History Warfarin Sodium [Coumadin] 2.5 mg PO TUTH 05/08/20 06/15/20 History Warfarin Sodium [Coumadin] 5 mg PO SUMOWEFRSA 05/08/20 06/15/20 History ALPRAZolam [Xanax] 0.25 mg PO Q8HR PRN 3 Days #9 tab 06/16/20 Rx Allergies Allergy/AdvReac Type Severity Reaction Status Date / Time No Known Allergies Allergy Verified 06/15/20 22:10 Physical Exam Vitals: Vital Signs Temp Pulse Pulse Resp BP BP Pulse Ox 06/16/20 09:26 76 06/16/20 09:11 76 06/16/20 08:44 92 L 06/16/20 07:56 98.3 F 81 26 H 154/65 97 06/16/20 04:13 80 06/16/20 04:03 77 06/16/20 03:44 97.9 F 79 37 H 144/78 96 06/16/20 00:41 98.0 F 73 40 H 132/74 95 06/16/20 00:11 73 06/16/20 00:01 68 06/15/20 23:50 69 23 115/74 95 06/15/20 22:41 18 06/15/20 22:40 71 18 117/95 94 L 06/15/20 22:00 72 118/74 06/15/20 21:34 70 06/15/20 21:30 71 44 H 94 L 06/15/20 21:00 109/59 06/15/20 20:46 98.7 F 81 40 H 112/77 93 L Intake and Output 06/15/20 06/16/20 06/16/20 22:59 06:59 14:59 Intake Total 120 Balance 120 Intake: Oral 120 Other: Weight 113.398 kg 113.398 kg PHYSICAL EXAMINATION: GENERAL: The patient is alert and oriented x3, not in any acute distress. Obese HEENT: Pupils are round and equally reacting to light. EOMI. No scleral icterus. No conjunctival pallor. Normocephalic, atraumatic. No pharyngeal erythema. No thyromegaly. CARDIOVASCULAR: S1 and S2 present. No murmurs, rubs, or gallops. PULMONARY: Diminished air entry into bilateral lung cevallos. ABDOMEN: Soft, nontender, nondistended, normoactive bowel sounds. No palpable organomegaly. MUSCULOSKELETAL: No joint swelling or deformity. EXTREMITIES: No cyanosis, clubbing, or pedal edema. NEUROLOGICAL: Gross neurological examination did not reveal any focal deficits. SKIN: No rashes. Results CBC & Chem 7: 06/16/20 03:02 06/16/20 03:02 Labs: Abnormal Lab Results - Last 24 Hours (Table) 06/15/20 06/15/20 06/15/20 Range/Units 21:28 21:28 21:28 Lymphocytes # (1.0-4.8) k/uL PT 23.8 H (9.0-12.0) sec INR 2.4 H (<1.2) APTT 33.9 H (22.0-30.0) sec ABG pH (7.35-7.45) ABG pCO2 (35-45) mmHg ABG pO2 (83-108) mmHg ABG HCO3 (21-25) mmol/L ABG Total CO2 (19-24) mmol/L ABG O2 Saturation (94-97) % Potassium 3.2 L (3.5-5.1) mmol/L BUN (9-20) mg/dL Glucose 145 H (74-99) mg/dL POC Glucose (mg/dL) (75-99) mg/dL Plasma Lactic Acid Scooter 3.3 H* (0.7-2.0) mmol/L 06/15/20 06/16/20 06/16/20 Range/Units 21:54 00:16 03:02 Lymphocytes # 0.5 L (1.0-4.8) k/uL PT (9.0-12.0) sec INR (<1.2) APTT (22.0-30.0) sec ABG pH 7.53 H (7.35-7.45) ABG pCO2 32 L (35-45) mmHg ABG pO2 288 H (83-108) mmHg ABG HCO3 27 H (21-25) mmol/L ABG Total CO2 28 H (19-24) mmol/L ABG O2 Saturation 99.7 H (94-97) % Potassium (3.5-5.1) mmol/L BUN (9-20) mg/dL Glucose (74-99) mg/dL POC Glucose (mg/dL) (75-99) mg/dL Plasma Lactic Acid Scooter 2.5 H* (0.7-2.0) mmol/L 06/16/20 06/16/20 06/16/20 Range/Units 03:02 03:02 03:02 Lymphocytes # (1.0-4.8) k/uL PT 27.2 H (9.0-12.0) sec INR 2.8 H (<1.2) APTT (22.0-30.0) sec ABG pH (7.35-7.45) ABG pCO2 (35-45) mmHg ABG pO2 (83-108) mmHg ABG HCO3 (21-25) mmol/L ABG Total CO2 (19-24) mmol/L ABG O2 Saturation (94-97) % Potassium (3.5-5.1) mmol/L BUN 22 H (9-20) mg/dL Glucose 185 H (74-99) mg/dL POC Glucose (mg/dL) (75-99) mg/dL Plasma Lactic Acid Scooter 2.3 H* (0.7-2.0) mmol/L 06/16/20 06/16/20 06/16/20 Range/Units 05:36 08:24 11:51 Lymphocytes # (1.0-4.8) k/uL PT (9.0-12.0) sec INR (<1.2) APTT (22.0-30.0) sec ABG pH (7.35-7.45) ABG pCO2 (35-45) mmHg ABG pO2 (83-108) mmHg ABG HCO3 (21-25) mmol/L ABG Total CO2 (19-24) mmol/L ABG O2 Saturation (94-97) % Potassium (3.5-5.1) mmol/L BUN (9-20) mg/dL Glucose (74-99) mg/dL POC Glucose (mg/dL) 179 H (75-99) mg/dL Plasma Lactic Acid Scooter 2.1 H* 2.7 H* (0.7-2.0) mmol/L Assessment and Plan Plan: -Acute on chronic hypoxic respiratory failure: Secondary to COPD exacerbation patient is significantly improved patient appears to be more anxiety than actual COPD has fairly good air entry into bilateral lung cevallos patient will be discharged on weaning dose of prednisone. Patient will be given prescription for Xanax as-needed basis for anxiety patient is already on Prozac. -Lactic acidosis no evidence of sepsis at this time patient takes Lasix at home patient had a normal ejection the past patient is not in heart failure exacerbation at this time patient doesn't appear to have diastolic dysfunction either patient doesn't appear to have congestive heart failure Lasix will be discontinued will continue with IV fluids to be chest x-ray again make sure patient doesn't have pulmonary edema. IV fluids will be discussed once lactic acidosis improved as well evidence of sepsis at this time -Gastroesophageal reflux disease -Hypertension -COPD for which patient is on Coumadin patient is therapy, not Coumadin and he was same dose of Coumadin Patient will be discharged later today and meningeal doses of steroids
--- NOTE | 2020-06-16 12:17 | P.DS ---
Providers Date of admission: 06/15/20 23:04 Attending physician: Rosina Huerta Consults: 06/15/20 23:05 Consult Physician Urgent Consulting Provider: Alyssa Mar Consult Reason/Comments: NIVDRF, AECOPD Do you want consulting provider notified?: Yes Primary care physician: Alvin Mott [facility] Course: He is referred to my history of present illness for further details. Patient Condition at Discharge: Stable Plan - Discharge Summary New Discharge Prescriptions: New ALPRAZolam [Xanax] 0.25 mg PO Q8HR PRN 3 Days #9 tab PRN Reason: Anxiety Discontinued Furosemide [Lasix] 40 mg PO Q48H No Action Levocetirizine Dihydrochloride [Xyzal] 5 mg PO DAILY FLUoxetine HCL [PROzac] 20 mg PO HS Loperamide HCl [Imodium A-D] 4 mg PO HS ARIPiprazole [Abilify] 5 mg PO HS Fluticasone Nasal [place] [Flonase Nasal [place]] 2 spray EA NOSTRIL DAILY spr Losartan [Cozaar] 25 mg PO BID #60 tab Metoprolol Succinate (ER) [Toprol XL] 25 mg PO HS #30 tab.er.24h Ipratropium [place] [Atrovent Hfa] 2 puff INHALATION RT-DAILY Budesonide [Pulmicort] 2 ml INHALATION RT-QID@08,12,16,20 Warfarin Sodium [Coumadin] 2.5 mg PO TUTH Warfarin Sodium [Coumadin] 5 mg PO SUMOWEFRSA Discharge Medication List Levocetirizine Dihydrochloride [Xyzal] 5 mg PO DAILY 11/23/18 [History] FLUoxetine HCL [PROzac] 20 mg PO HS 08/10/19 [History] Loperamide HCl [Imodium A-D] 4 mg PO HS 08/10/19 [History] ARIPiprazole [Abilify] 5 mg PO HS 08/11/19 [History] Fluticasone Nasal [place] [Flonase Nasal [place]] 2 spray EA NOSTRIL DAILY spr 08/13/19 [Rx] Losartan [Cozaar] 25 mg PO BID #60 tab 11/04/19 [Rx] Metoprolol Succinate (ER) [Toprol XL] 25 mg PO HS #30 tab.er.24h 11/04/19 [Rx] Budesonide [Pulmicort] 2 ml INHALATION RT-QID@08,12,16,20 05/08/20 [History] Ipratropium [place] [Atrovent Hfa] 2 puff INHALATION RT-DAILY 05/08/20 [History] Warfarin Sodium [Coumadin] 2.5 mg PO TUTH 05/08/20 [History] Warfarin Sodium [Coumadin] 5 mg PO SUMOWEFRSA 05/08/20 [History] ALPRAZolam [Xanax] 0.25 mg PO Q8HR PRN 3 Days #9 tab 06/16/20 [Rx] Follow up Appointment(s)/Referral(s): Alvin Mott MD [Primary Care Provider] - 3 Days Minor Hunt MD [STAFF PHYSICIAN] - 1 Week Discharge Disposition: HOME SELF-CARE
[2020-06-16] MEDS ORDERED: INSULIN ASPART (NovoLOG) 100 UNIT/ML VIAL SQ SCH (12:30)
[2020-06-16 12:52] VITALS: PULSE 72
--- NOTE | 2020-06-16 13:01 | P.CNPUL ---
History of Present Illness Consult date: 06/16/20 Requesting physician: Rosina Huerta Reason for consult: dyspnea, cough Chief complaint: Dyspnea, cough History of present illness: 74-year-old white male, poor historian, with known history of moderately severe COPD with a baseline FEV1 of 55% of predicted, on home oxygen at 2 L/m, obstruct joslyn sleep apnea syndrome on CPAP therapy, who follows with Dr. Mar in the pulmonary clinic. 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 Patient is a former smoker, he stopped smoking a year ago, but he states prior to that he smoked a pack a day for 65 years. Patient presented to the emergency department on 06/15/2020 with complaints of worsening shortness of breath, cough with production of white phlegm. The onset of symptoms was 3-4 days prior. Denied any fever or chills. Denied any hemoptysis, denied any sick contacts. Patient was significantly short of breath on presentation, with pursed lip breathing, and was placed on BiPAP support with pressures of 10 and 5, and FiO2 of 28%, his blood gas showed pO2 of 288, pCO2 of 32, and pH of 7.53 this was done on FiO2 of 35%, patient had since been switched over to nasal cannula currently at 3 L, and the pulse ox of 93%. Chest x-ray showed minimal fibrotic changes, no heart failure. His CBC on admission was within normal limits, INR is therapeutic at 2.4, electrolytes and renal profile were unremarkable with the exception of potassium on admission which was 3.2, plasma lactic acid was 3.3, but patient is nontoxic, and elevation and lactic acid is not thought to be related to hypoperfusion related to sepsis. Blood pressure stable, troponins were negative at less than 0.012 3, proBNP is 337, LFTs were within normal limits. Patient was started on nebulized bronchodilators, IV steroids, responded well, has improved overnight, and is currently on nasal cannula. Lung sounds are clear to auscultation, no wheezing or rhonchi. Review of Systems All systems: negative Constitutional: Denies chills, Denies fever Eyes: denies blurred vision, denies pain Ears, nose, mouth and throat: Denies headache, Denies sore throat Cardiovascular: Denies chest pain, Denies shortness of breath Respiratory: Reports cough with sputum, Reports dyspnea, Reports home oxygen, Reports respiratory infections, Reports wheezing, Denies cough Gastrointestinal: Denies abdominal pain, Denies diarrhea, Denies nausea, Denies vomiting Musculoskeletal: Denies myalgias Integumentary: Denies pruritus, Denies rash Neurological: Denies numbness, Denies weakness Psychiatric: Denies anxiety, Denies depression Endocrine: Denies fatigue, Denies weight change Past Medical History Past Medical History: Heart Failure, COPD, Deep Vein Thrombosis (DVT), GERD/Reflux, Hyperlipidemia, Hypertension Additional Past Medical History / Comment(s): pt states sexual issue in the past would not go into deals History of Any Multi-Drug Resistant Organisms: None Reported Past Surgical History: Adenoidectomy, Prostate Surgery Additional Past Surgical History / Comment(s): left wrist surgery 12 years ago Past Anesthesia/Blood Transfusion Reactions: No Reported Reaction Past Psychological History: Anxiety, Bipolar, Depression Additional Psychological History / Comment(s): Patient caregiver states that symptoms have been worse since incarceration in June 2019, previous suicide attempt by cutting left wrist "years ago", per patient. no vocalization of any feelings this way. Smoking Status: Former smoker Past Alcohol Use History: None Reported Additional Past Alcohol Use History / Comment(s): pt states he used to drink daily but quit 6 months ago Past Drug Use History: None Reported - Past Family History Mother Family Medical History: Cancer Father Family Medical History: Diabetes Mellitus Medications and Allergies Home Medications Medication Instructions Recorded Confirmed Type Levocetirizine Dihydrochloride 5 mg PO DAILY 11/23/18 06/15/20 History [Xyzal] FLUoxetine HCL [PROzac] 20 mg PO HS 08/10/19 06/15/20 History Loperamide HCl [Imodium A-D] 4 mg PO HS 08/10/19 06/15/20 History ARIPiprazole [Abilify] 5 mg PO HS 08/11/19 06/15/20 History Fluticasone Nasal [place] [Flonase 2 spray EA NOSTRIL DAILY spr 08/13/19 06/15/20 Rx Nasal [place]] Losartan [Cozaar] 25 mg PO BID #60 tab 11/04/19 06/15/20 Rx Metoprolol Succinate (ER) [Toprol 25 mg PO HS #30 tab.er.24h 11/04/19 06/15/20 Rx XL] Budesonide [Pulmicort] 2 ml INHALATION RT-QID@08,12,16,20 05/08/20 06/15/20 History Ipratropium [place] [Atrovent Hfa] 2 puff INHALATION RT-DAILY 05/08/20 06/15/20 History Warfarin Sodium [Coumadin] 2.5 mg PO TUTH 05/08/20 06/15/20 History Warfarin Sodium [Coumadin] 5 mg PO SUMOWEFRSA 05/08/20 06/15/20 History ALPRAZolam [Xanax] 0.25 mg PO Q8HR PRN 3 Days #9 tab 06/16/20 Rx Allergies Allergy/AdvReac Type Severity Reaction Status Date / Time No Known Allergies Allergy Verified 06/15/20 22:10 Physical Exam Vitals: Vital Signs Temp Pulse Pulse Resp BP BP Pulse Ox 06/16/20 12:00 88 20 164/88 93 L 06/16/20 09:26 76 06/16/20 09:11 76 06/16/20 08:44 92 L 06/16/20 07:56 98.3 F 81 26 H 154/65 97 06/16/20 04:13 80 06/16/20 04:03 77 06/16/20 03:44 97.9 F 79 37 H 144/78 96 06/16/20 00:41 98.0 F 73 40 H 132/74 95 06/16/20 00:11 73 06/16/20 00:01 68 06/15/20 23:50 69 23 115/74 95 06/15/20 22:41 18 06/15/20 22:40 71 18 117/95 94 L 06/15/20 22:00 72 118/74 06/15/20 21:34 70 06/15/20 21:30 71 44 H 94 L 06/15/20 21:00 109/59 06/15/20 20:46 98.7 F 81 40 H 112/77 93 L Intake and Output 06/15/20 06/16/20 06/16/20 22:59 06:59 14:59 Intake Total 120 Balance 120 Intake: Oral 120 Other: Weight 113.398 kg 113.398 kg GENERAL EXAM: Alert, very pleasant, 74-year-old white male, on 3 L of oxygen pulse ox of 93%, resting in bed, currently off BiPAP support, comfortable in no apparent distress. HEAD: Normocephalic/atraumatic. EYES: Normal reaction of pupils, equal size. Conjunctiva pink, sclera white. NOSE: Clear with pink turbinates. THROAT: No erythema or exudates. NECK: No masses, no JVD, no thyroid enlargement, no adenopathy. CHEST: No chest wall deformity. Symmetrical expansion. LUNGS: Equal air entry with no crackles, wheeze, rhonchi or dullness. CVS: Regular rate and rhythm, normal S1 and S2, no gallops, no murmurs, no rubs ABDOMEN: Soft, nontender, obese. No hepatosplenomegaly, normal bowel sounds, no guarding or rigidity. EXTREMITIES: No clubbing, no edema, no cyanosis, 2+ pulses and upper and lower extremities. MUSCULOSKELETAL: Muscle strength and tone normal. SPINE: No scoliosis or deformity SKIN: No rashes CENTRAL NERVOUS SYSTEM: Alert and oriented -3. No focal deficits, tone is normal in all 4 extremities. PSYCHIATRIC: Alert and oriented -3. Appropriate affect. Intact judgment and insight. Results - Laboratory Findings CBC and BMP: 06/16/20 03:02 06/16/20 03:02 ABG ABG pH 7.53 (7.35-7.45) H 06/15/20 21:54 ABG pCO2 32 mmHg (35-45) L 06/15/20 21:54 ABG pO2 288 mmHg (83-108) H 06/15/20 21:54 ABG O2 Saturation 99.7 % (94-97) H 06/15/20 21:54 PT/INR, D-dimer PT 27.2 sec (9.0-12.0) H 06/16/20 03:02 INR 2.8 (<1.2) H 06/16/20 03:02 Abnormal lab findings: Abnormal Labs 06/15/20 06/15/20 06/15/20 21:28 21:28 21:28 Lymphocytes # PT 23.8 H INR 2.4 H APTT 33.9 H ABG pH ABG pCO2 ABG pO2 ABG HCO3 ABG Total CO2 ABG O2 Saturation Potassium 3.2 L BUN Glucose 145 H POC Glucose (mg/dL) Plasma Lactic Acid Scooter 3.3 H* 06/15/20 06/16/20 06/16/20 21:54 00:16 03:02 Lymphocytes # 0.5 L PT INR APTT ABG pH 7.53 H ABG pCO2 32 L ABG pO2 288 H ABG HCO3 27 H ABG Total CO2 28 H ABG O2 Saturation 99.7 H Potassium BUN Glucose POC Glucose (mg/dL) Plasma Lactic Acid Scooter 2.5 H* 06/16/20 06/16/20 06/16/20 03:02 03:02 03:02 Lymphocytes # PT 27.2 H INR 2.8 H APTT ABG pH ABG pCO2 ABG pO2 ABG HCO3 ABG Total CO2 ABG O2 Saturation Potassium BUN 22 H Glucose 185 H POC Glucose (mg/dL) Plasma Lactic Acid Scooter 2.3 H* 06/16/20 06/16/20 06/16/20 05:36 08:24 11:51 Lymphocytes # PT INR APTT ABG pH ABG pCO2 ABG pO2 ABG HCO3 ABG Total CO2 ABG O2 Saturation Potassium BUN Glucose POC Glucose (mg/dL) 179 H Plasma Lactic Acid Scooter 2.1 H* 2.7 H* - Diagnostic Findings Chest x-ray: report reviewed, image reviewed Assessment and Plan Plan: Assessment: #1. Dyspnea related to acute exacerbation of chronic obstructive pulmonary disease, chest x-ray showed no acute process, did show minimal fibrotic changes #2. Obstructive sleep apnea syndrome on CPAP therapy at home, with settings of [place] pressure of 8 and mechanical pressure of 16 with a C-Flex of 3 #3. Chronic hypoxic respiratory failure related to moderately severe COPD, baseline FEV1 of 55% of predicted #4. Ex-smoker, patient quit a year ago, does carry [id number] smoking history #5. History of recurrent urinary tract infections #6. History of pulmonary embolisms and bilateral DVTs on long-term anticoagulation with Coumadin, today's INR is therapeutic at 2.4 #7. Anxiety #8. Bipolar disorder #9. Hypertension #10. Dyslipidemia #11. Chronic back pain Plan: Patient has responded to IV steroids, bronchodilators, he did require BiPAP support, he is currently back on nasal cannula, breathing easier, lung sounds are clear, vital signs are stable, patient is afebrile, seems to be back to baseline. Lactic acid was elevated at 3.3, and is not thought to be related to hypoperfusion related to sepsis. From pulmonary perspective patient is stable, he can be considered for discharge home today on prednisone taper, oral antibiotics, and he can resume his Pulmicort, breathing treatments, and CPAP therapy. Follow-up with Dr. Mcdonough in the office in 7-10 days I performed a history & physical examination of the patient and discussed their management with my nurse practitioner, Erika Ayala. I reviewed the nurse practitioner's note and agree with the documented findings and plan of care. Lung sounds are positive for diminished breath sounds, otherwise clear. The findings and the impression was discussed with the patient. I attest to the documentation by the nurse practitioner. Time with Patient: Greater than 30
--- NOTE | 2020-06-16 13:11 | XR ---
EXAMINATION TYPE: XR chest 1V DATE OF EXAM: 06/16/2020 COMPARISON: Chest radiograph 06/15/2020 HISTORY: Difficulty breathing. Concern for CHF. TECHNIQUE: Single frontal view of the chest is obtained. FINDINGS: There is no focal air space opacity, pleural effusion, or pneumothorax seen. The cardiac silhouette size is within normal limits. The osseous structures are intact. IMPRESSION: No acute process. No radiographic evidence of CHF.
[2020-06-16] MEDS ORDERED: FLUoxetine HCL 20 MG CAP PO SCH (21:00)
[2020-06-16] MEDS ORDERED: METOPROLOL SUCCINATE (ER) 25 MG TAB.ER.24H PO SCH (21:00)
[2020-06-17] MEDS ORDERED: WARFARIN 5 MG TAB PO SCH (18:00)
== END 2020-06-16 16:20 | disposition home or self-care (01) | DRG 190 ==
LOC: EC 20:42 → 3SCARD 23:04
PROVIDERS: ADMIT Internal Medicine; ATTEND Internal Medicine
PROC: 5A09357 Assistance with Respiratory Ventilation, Less than 24 Consecutive Hours, Continuous Positive Airway Pressure (ICD-10-PCS; principal; 2020-06-15)
DX: J44.1 Chronic obstructive pulmonary disease with (acute) exacerbation (principal); J96.21 Acute and chronic respiratory failure with hypoxia; E87.2 Acidosis; N40.0 Benign prostatic hyperplasia without lower urinary tract symptoms; F31.9 Bipolar disorder, unspecified; E78.5 Hyperlipidemia, unspecified; F41.9 Anxiety disorder, unspecified; I10 Essential (primary) hypertension; G47.33 Obstructive sleep apnea (adult) (pediatric); G89.29 Other chronic pain; K21.9 Gastro-esophageal reflux disease without esophagitis; Z20.828 Contact with and (suspected) exposure to other viral communicable diseases; Z79.01 Long term (current) use of anticoagulants; Z79.899 Other long term (current) drug therapy; Z86.711 Personal history of pulmonary embolism; Z87.891 Personal history of nicotine dependence; Z87.440 Personal history of urinary (tract) infections; Z91.5 Personal history of self-harm; Z83.3 Family history of diabetes mellitus; Z90.89 Acquired absence of other organs; Z98.890 Other specified postprocedural states; Z80.9 Family history of malignant neoplasm, unspecified
CPT/HCPCS: 36415; 36600; 71045; 80048; 80053; 82805; 83605; 83880; 84484; 85025; 85610; 85730; 93005; 94640; 94660; 96365; 96375; 99285

== ENCOUNTER → 2020-08-31 | Outpatient (CLI) | payer MEDICARE ==
[2020-08-31 16:14] LABS: HCT 47.5 % (39.0-53.0); HGB 15.4 gm/dL (13.0-17.5); MCH 30.5 pg (25.0-35.0); MCHC 32.5 g/dL (31.0-37.0); MCV 93.8 fL (80.0-100.0); Platelet Count 210 k/uL (150-450); RBC 5.06 m/uL (4.30-5.90); RDW 14.4 % (11.5-15.5); WBC 8.5 k/uL (3.8-10.6)
[2020-08-31 16:22] LABS: Potassium 3.9 mmol/L (3.5-5.1)
== END ==
LOC: LABPAT 15:06
PROVIDERS: ATTEND Internal Medicine Interventional Cardiology
DX: Z01.818 Encounter for other preprocedural examination (principal); R94.39 Abnormal result of other cardiovascular function study
CPT/HCPCS: 36415; 80051; 82565; 84520; 85027

== ENCOUNTER → 2020-09-03 | Day surgery (SDC) | payer MEDICARE ==
[2020-09-01 14:14] VITALS: BMI 32.5
[~2020-09-03] MED LIST changes: +ALPRAZolam 0.25 MG TAB PO PRN; +ALPRAZolam 0.5 MG TAB PO PRN; +ARIPiprazole 5 MG TAB PO SCH; +ASPIRIN 325 MG TAB PO STA; +ATORVASTATIN 40 MG TAB PO SCH; +ATORVASTATIN 80 MG TAB PO STA; +BUDESONIDE 1 MG/2 ML NEBU INHALATION SCH; +FLUTICASONE 50MCG/SPRAY NASAL 16GM EA NOSTRIL SCH; +FLUoxetine HCL 20 MG CAP PO SCH; +IOPAMIDOL-370 125ML BTL INJ ONE; +IPRATROPIUM 0.5 MG/2.5 ML NEBU INHALATION SCH; -LACTATED RINGERS 1,000 ML IV SCH; +LIDOCAINE 1% INJ 10MG/ML (20 ML MDV) ONE; +LIDOCAINE 1% INJ 10MG/ML (20 ML MDV) SQ ONE; +LOPERAMIDE 2 MG CAP PO SCH; +LORATADINE 10 MG TAB PO SCH; +LOSARTAN 25 MG TAB PO SCH; +METOPROLOL SUCCINATE (ER) 25 MG TAB.ER.24H PO SCH; +NITROGLYCERIN SL TABS 0.4 MG TAB SUBLINGUAL PRN; +RX INFO: IV CONTRAST WAS GIVEN 1 EACH MISC MISCELLANE PRN; +SODIUM CHLORIDE 0.9% 1,000 ML IV ONE; +SODIUM CHLORIDE 0.9% 1,000 ML IV SCH; +SODIUM CHLORIDE 0.9% 1,000 ML in EMPTY BAG 1 BAG IV ONE; +VERAPAMIL 2.5 MG/ML 2 ML AMP ONE; +VERAPAMIL SYRINGE (5 MG/10 ML) INTRAARTER ONE; +fentaNYL (PF) 50 MCG/ML 2 ML AMP IV ONE; +fentaNYL (PF) 50 MCG/ML 2 ML AMP ONE
[2020-09-03 06:58] VITALS: TEMP 98.8
[2020-09-03 07:11] LABS: INR 1.1 (<1.2); Prothrombin Time 11.2 sec (9.0-12.0)
--- NOTE | 2020-09-03 09:24 | CC ---
CARDIAC CATHETERIZATION REPORT Mr. Gottlieb is a 74-year-old male with a prior history of pulmonary embolism, history of hypertension who has been complaining of progressive dyspnea on exertion, underwent myocardial perfusion imaging, revealed evidence of inducible ischemia involving the inferolateral wall. In view of that, recommendation made regarding cardiac catheterization. The procedures, risks, and complications were discussed with the patient who is in full understanding and agreement. PROCEDURE: Patient was brought to helper animal laboratory in a fasting semi-sedated state after receiving fentanyl and Benadryl and achieving moderate conscious sedated state. Using Xylocaine anesthesia and Seldinger technique, a 6-Hungarian sheath was introduced in the right radial artery. Selective right and left coronary angiography performed using 5-Hungarian, 3.5 bend right and left Senia catheter, multiple views of the coronary artery including hemiaxial views were obtained. Following that, a 5-Hungarian tight pigtail catheter was introduced into the left ventricle and a 30-degree GARZA view of the left ventricle was obtained. Following that, catheter and sheath were removed. Hemostasis was obtained with deployment of a TR band. There was no immediate complication. Patient is returned to his room in stable condition. Of note, the patient received 5000 units of intravenous heparin as well as intra-arterial verapamil. FINDINGS: FLUOROSCOPY: There was severe calcification involving all the coronary arteries. LEFT MAIN: This is a large-sized vessel, bifurcating into left circumflex, left anterior descending artery, left main coronary artery at the distal segment has a complex area of stenosis up to 80%. LEFT ANTERIOR DESCENDING ARTERY: This is a large-sized vessel reaching toward the apex with a wraparound apex segment, heavily calcified throughout its course as area of stenosis throughout the artery up to 70%-80%. The ostium of the LAD has an 80%-90% stenosis. LEFT CIRCUMFLEX: This is a nondominant vessel, giving rise to 2 obtuse marginal branch. The ostium of the left circumflex has a 70% stenosis. The first obtuse marginal branch has an 80% stenosis. The second obtuse marginal branch has intimal diffuse diseased. RIGHT CORONARY ARTERY: This vessel is totally occluded proximally with no antegrade flow. COLLATERALS: there is collateral from the left coronary system toward the right PDA. LEFT VENTRICULOGRAM: Left ventriculogram was performed in 30-degree GARZA view and revealed a normal left ventricular size. There is inferobasal hypokinesis. There was no other wall motion abnormality. The ejection fraction was calculated at 50%-55%. There was no significant mitral regurgitation. HEMODYNAMICS: There was no gradient across the aortic valve. The left ventricular end- diastolic pressure was 5-8 mmHg. CONCLUSION: 1. Heavily calcified coronary arteries. 2. Severe stenosis in the left main. 3. Severe triple-vessel coronary artery disease with chronically occluded right coronary artery. 4. Minimally impaired left ventricular systolic function. RECOMMENDATION: In view of finding anatomy, I recommend proceeding with evaluation for coronary artery bypass grafting. The rationale behind the recommendation as well. The findings were discussed with the patient and his family and they are in full understanding and agreement. Duration of sedation is 21 minutes. MMODL / IJN: [id number] /
[2020-09-03] MEDS: ALBUTEROL NEBULIZED 1.25 MG/3 ML INHALATION SCH ×3 (10:00→10:13)
[2020-09-03 11:59] VITALS: BP 112/72; PULSE 56; RESP 1
--- NOTE | 2020-09-03 12:30 | P.GSCN ---
History of Present Illness Consult date: 09/03/20 Reason for Consult: Coronary artery disease Requesting physician: Dom Cristina History of present illness: This is a 74-year-old gentleman who follows on an outpatient basis with Dr. Alvin Mott. He has a previous medical history of hypertension, hyperlipidemia, pulmonary embolism as well as bilateral lower extremity DVTs on Coumadin for anticoagulation, severe COPD with FEV1 55% of predicted and home oxygen use at 2 L/m, pneumonia, dementia, morbid obesity, BPH, recurrent UTI, previous tobacco dependence, previous heavy alcohol usage, and bipolar/anxiety/depression with previous suicide attempt. He was inpatient in May 2020 with shortness of breath and acute on chronic COPD. He was treated and discharged home with follow-up plan for primary care and pulmonology. He continued to have progressive dyspnea on exertion, and was seen by cardiology where he had stress testing completed which was abnormal. He was recommended to undergo heart catheterization which was completed today and which demonstrated distal left main stenosis 80%, ostial LAD stenosis 80-90%, ostial left circumflex stenosis 70% with 80% stenosis in the first obtuse marginal branch, total occlusion of the right coronary artery, collateral circulation from the left to the right. LV gram was also completed and ejection fraction was calculated at 50-55% with inferobasal hypokinesis. Due to these findings Dr. Mcdonough from cardiothoracic surgery was consulted for surgical revascularization recommendations. Review of Systems Review of systems was completed and was negative except as noted - Cardiovascular Reports as per HPI, Reports decreased exercise tolerance, Reports dyspnea on exertion - Respiratory Reports home oxygen Past Medical History Past Medical History: Coronary Artery Disease (CAD), Heart Failure, COPD, Deep Vein Thrombosis (DVT), GERD/Reflux, Hyperlipidemia, Hypertension, Pneumonia, Prostate Disorder, Pulmonary Embolus (PE), Skin Disorder, Sleep Apnea/CPAP/BIPAP Additional Past Medical History / Comment(s): irregular heart beat, IBS, Colitis, eczema, frequent UTI's History of Any Multi-Drug Resistant Organisms: None Reported Past Surgical History: Adenoidectomy, Heart Catheterization, Orthopedic Surgery, Prostate Surgery, Tonsillectomy Additional Past Surgical History / Comment(s): left wrist surgery 12 years ago (injury from suicidal attempt) Past Anesthesia/Blood Transfusion Reactions: No Reported Reaction Past Psychological History: Anxiety, Bipolar, Depression Smoking Status: Former smoker Past Alcohol Use History: None Reported Past Drug Use History: None Reported - Past Family History Mother Family Medical History: Cancer Father Family Medical History: Cancer Additional Family Medical History / Comment(s): colon Medications and Allergies Home Medications Medication Instructions Recorded Confirmed Type Levocetirizine Dihydrochloride 5 mg PO DAILY 11/23/18 09/03/20 History [Xyzal] FLUoxetine HCL [PROzac] 20 mg PO HS 08/10/19 09/01/20 History Loperamide HCl [Imodium A-D] 4 mg PO HS 08/10/19 09/03/20 History ARIPiprazole [Abilify] 5 mg PO HS 08/11/19 09/01/20 History Fluticasone Nasal [place] [Flonase 2 spray EA NOSTRIL DAILY spr 08/13/19 09/03/20 Rx Nasal [place]] Metoprolol Succinate (ER) [Toprol 25 mg PO HS #30 tab.er.24h 11/04/19 09/03/20 Rx XL] Budesonide [Pulmicort] 2 ml INHALATION QID 05/08/20 09/01/20 History Ipratropium [place] [Atrovent Hfa] 2 puff INHALATION RT-DAILY 05/08/20 09/03/20 History Warfarin Sodium [Coumadin] 2.5 mg PO TUTH 05/08/20 09/01/20 History Warfarin Sodium [Coumadin] 5 mg PO SUMOWEFRSA 05/08/20 09/01/20 History Losartan [Cozaar] 12.5 mg PO BID 09/01/20 09/03/20 History Albuterol Nebulized [Ventolin 1.25 mg INHALATION RT-QID 09/03/20 09/03/20 History Nebulized] Atorvastatin [Lipitor] 40 mg PO DAILY #90 tab 09/03/20 Rx Allergies Allergy/AdvReac Type Severity Reaction Status Date / Time No Known Allergies Allergy Verified 09/01/20 13:59 Surgical - Exam Vital Signs Temp Pulse Resp BP Pulse Ox 98.8 F 57 L 16 125/63 93 L 09/03/20 06:56 09/03/20 06:56 09/03/20 06:56 09/03/20 06:56 09/03/20 06:56 - General well developed, well nourished, no distress, no pain, obese - Eyes normal ocular movement - ENT no hearing loss - Neck no masses, no bruits, trachea midline - Respiratory Lungs sounds diminished bilaterally. Respirations even, nonlabored. Currently on 2 L nasal cannula with oxygen saturation 94%. No chest wall deformities. No clubbing or cyanosis present. - Cardiovascular S1, S2 present. Regular rate and rhythm, sinus rhythm with occasional PVCs on telemetry. Palpable peripheral pulses bilaterally. No edema present. No calf pain or tenderness noted. - Abdomen Obese Abdomen: soft, non tender, bowel sounds - Genitourinary Deferred - Rectum Deferred - Integumentary Skin is warm and dry with evidence of good perfusion - Neurologic normal coordination, normal sensation - Musculoskeletal normal posture - Psychiatric oriented to time, oriented to person, oriented to place Results - Imaging Additional studies: Heart catheterization films were reviewed with Dr. Mcdonough Assessment and Plan Assessment: 1. Multivessel coronary artery disease 2. Hypertension 3. Hyperlipidemia 4. History of pulmonary embolism as well as bilateral lower extremity DVTs on Coumadin for anticoagulation 5. Severe COPD with FEV1 55% of predicted, home oxygen use 6. Previous tobacco dependence 7. History of pneumonia 8. Dementia 9. Morbid obesity 10. BPH 11. Recurrent UTIs 12. Previous heavy alcohol usage 13. Bipolar/anxiety/depression Plan: The patient was seen and examined in the extended stay unit with Dr. Mcdonough. Chart/diagnostics were reviewed. We did offer coronary artery bypass surgery to the patient with his niece present, usual perioperative course was discussed in detail, risks and benefits were reviewed, all questions were answered. The patient was agreeable at that time to consider surgery and preoperative testing was initiated. Recommend maximizing medical therapy in the interim. Appointment was made with Dr. Mcdonough to follow-up in the office to discuss timing of surgery, however prior to completion of testing patient in niece decided the patient does not want surgery nor does he went to follow-up in the office. Our contact information was given to the patient, should he change his mind we would be happy to see him in the office to finalize plans for surgery. Thank you Dr. Cristina for this consultation, please call us with any further questions Time with Patient: Greater than 30
--- NOTE | 2020-09-03 14:45 | US ---
EXAMINATION TYPE: US carotid duplex BILAT DATE OF EXAM: 09/03/2020 COMPARISON: NONE CLINICAL HISTORY: Pre-Op Cardiac Surgery. Prior Smoker, CAD EXAM MEASUREMENTS: RIGHT: Peak Systolic Velocity (PSV) cm/sec ----- Right CCA: 57.3 ----- Right ICA: 73.5 ----- Right ECA: 110.8 ICA/CCA ratio: 1.3 RIGHT: End Diastole cm/sec ----- Right CCA: 19.4 ----- Right ICA: 19.7 ----- Right ECA: 7.4 LEFT: Peak Systolic Velocity (PSV) cm/sec ----- Left CCA: 42.4 ----- Left ICA: 85.1 ----- Left ECA: 76.6 ICA/CCA ratio: 2.0 LEFT: End Diastole cm/sec ----- Left CCA: 14.9 ----- Left ICA: 26.7 ----- Left ECA: 0.0 VERTEBRALS (direction of flow): Right Vertebral: Antegrade Left Vertebral: Antegrade Rhythm: Arrhythmia Irregular, calcified wall plaque is noted at bilateral carotid bifurcation. IMPRESSION: 1. No evidence of hemodynamically significant stenosis bilaterally. Any stenosis that may be present is less than 50%. 2. Calcified plaque at the bilateral carotid bulbs. 3. Arrhythmia. Criteria for Assigning % of Stenosis / Diameter reduction (Estimation based on the indirect measurements of the internal carotid artery velocities (ICA PSV). 1. Normal (no stenosis)=ICA PSV < 125 cm/s: ratio < 2.0: ICA EDV<40 cm/s. 2. Less than 50% stenosis=ICA PSV < 125 cm/s: ratio < 2.0: ICA EDV<40 cm/s. 3. 50 to 69% stenosis=ICA PSV of 125 to 230 cm/s: ration 2.0 ? 4.0: ICA EDV 40-100 cm/s. 4. Greater than 70% stenosis to near occlusion= ICA PSV > 230 cm/s: ratio > 4.0: ICA EDV > 100 cm/s. 5. Near occlusion= ICA PSV velocities may be low or undetectable: variable ratio and ICA EDV. 6. Total occlusion=unable to detect flow.
== END | disposition home or self-care (01) ==
LOC: CATHCVL 06:35
PROVIDERS: ATTEND Internal Medicine Interventional Cardiology
DX: I25.10 Atherosclerotic heart disease of native coronary artery without angina pectoris (principal); I25.84 Coronary atherosclerosis due to calcified coronary lesion; I25.82 Chronic total occlusion of coronary artery; I11.9 Hypertensive heart disease without heart failure; R94.39 Abnormal result of other cardiovascular function study; I26.99 Other pulmonary embolism without acute cor pulmonale; I82.403 Acute embolism and thrombosis of unspecified deep veins of lower extremity, bilateral; Z99.81 Dependence on supplemental oxygen; J44.9 Chronic obstructive pulmonary disease, unspecified; Z87.891 Personal history of nicotine dependence; K21.9 Gastro-esophageal reflux disease without esophagitis; G47.33 Obstructive sleep apnea (adult) (pediatric); F41.9 Anxiety disorder, unspecified; Z98.890 Other specified postprocedural states; Z87.01 Personal history of pneumonia (recurrent); E66.01 Morbid (severe) obesity due to excess calories; Z68.33 Body mass index [BMI] 33.0-33.9, adult; N40.0 Benign prostatic hyperplasia without lower urinary tract symptoms; Z87.440 Personal history of urinary (tract) infections; F31.9 Bipolar disorder, unspecified; Z91.5 Personal history of self-harm; Z80.9 Family history of malignant neoplasm, unspecified; Z80.0 Family history of malignant neoplasm of digestive organs; Z79.01 Long term (current) use of anticoagulants; Z79.899 Other long term (current) drug therapy
CPT/HCPCS: 94640; 93458; 85610; 93971; 93880; C1769; C1894; J2001; J3010; J1644; Q9967

== ENCOUNTER 2020-09-12 12:15 | Inpatient (IN) | payer MEDICARE ==
--- NOTE | 2020-09-12 12:56 | ED ---
General Adult HPI - General Chief complaint: Recheck/Abnormal Lab/Rx Stated complaint: low heart rate Time Seen by Provider: 09/12/20 12:43 Source: patient Mode of arrival: ambulatory Limitations: no limitations - History of Present Illness Initial comments: Dictation was produced using [employer] dictation software. please excuse any grammatical, word or spelling errors. This patient was cared for during a federal and state declared state of emerg ency secondary to Covid 19 Chief Complaint: 75-year-old male presents with bradycardia History of Present Illness: 75-year-old male he has multiple comorbidities. He has his niece at bedside with him. His niece is his primary fiscal assistant. Patient has a lot of comorbidities. She takes is vital signs very often. Last night she noticed that stated his heart rate is found to be in the 40s. Patient denied any symptoms at that time. This one she checked his heart rate and was around 46. She decided to present to the emergency department for medical evaluation. he is asymptomatic at this time. Niece notices that patient does appear to be a lot more tired than usual. Patient had a recent cardiac catheterization that showed blockages. Patient is deciding on whether to get it multivessel bypass grafting versus multiple stents versus no treatment at all. Patient is on metoprolol. Patient has no complaints at this time. The ROS documented in this emergency department record has been reviewed and confirmed by me. Those systems with pertinent positive or negative responses have been documented in the HPI. All other systems are other negative and/or noncontributory. PHYSICAL EXAM: General Impression: Alert and oriented x3, not in acute distress HEENT: Normocephalic atraumatic, extra-ocular movements intact, pupils equal and reactive to light bilaterally, mucous membranes moist. Cardiovascular: Heart regular rate and rhythm Chest: Able to complete full sentences, no retractions, no tachypnea Abdomen: abdomen soft, non-tender, non-distended, no organomegaly Musculoskeletal: Pulses present and equal in all extremities, no peripheral edema Motor: no focal deficits noted Neurological: CN II-XII grossly intact, no focal motor or sensory deficits noted Skin: Intact with no visualized rashes Psych: Normal affect and mood ED course: 75-year-old male presents with bradycardia. Patient is asymptomatic. Signs upon arrival are within acceptable limits. Laboratory evaluation obtained. CBC, coag panel slightly subtherapeutic with INR of 1.8. Metabolic panel shows elevated BUN to creatinine ratio concerning for some mild dehydration. Rest of laboratories is unremarkable. Chest x-ray shows basilar atelectasis. Patient observed in emergency department found to be stable medical condition. Considering patient's comorbidities and recent abnormal cardiac catheterization with outpatient mid for medical monitoring with cardiology consultation for bradycardia. At this point we will withhold any bradycardia producing medications. This is discussed with Dr. magallanes at bedside. Patient be admitted. EKG interpretation: Ventricular rate 54, sinus rhythm,. 198, QRS 94, QTC 425. No ND prolongation, no QTC prolongation, no ST or T-wave changes noted. EKG compared to 06/15/2020 showing no changes. Overall, this EKG is unremarkable - Related Data Home Medications Medication Instructions Recorded Confirmed Levocetirizine Dihydrochloride 5 mg PO DAILY 11/23/18 09/12/20 [Xyzal] FLUoxetine HCL [PROzac] 20 mg PO HS 08/10/19 09/12/20 Loperamide HCl [Imodium A-D] 4 mg PO HS 08/10/19 09/12/20 ARIPiprazole [Abilify] 5 mg PO DAILY 08/11/19 09/12/20 Ipratropium [place] [Atrovent Hfa] 2 puff INHALATION RT-DAILY 05/08/20 09/12/20 Warfarin Sodium [Coumadin] 2.5 mg PO SUTHSA 05/08/20 09/12/20 Warfarin Sodium [Coumadin] 5 mg PO MOTUWEFR 05/08/20 09/12/20 Albuterol Nebulized [Ventolin 2.5 mg INHALATION RT-QID 09/12/20 09/12/20 Nebulized] Atorvastatin [Lipitor] 40 mg PO HS 09/12/20 09/12/20 Furosemide [Lasix] 40 mg PO Q48H 09/12/20 09/12/20 Losartan Potassium 25 mg PO BID 09/12/20 09/12/20 Previous Rx's Medication Instructions Recorded Fluticasone Nasal [place] [Flonase 2 spray EA NOSTRIL DAILY spr 08/13/19 Nasal [place]] Metoprolol Succinate (ER) [Toprol 25 mg PO HS #30 tab.er.24h 11/04/19 XL] Allergies Allergy/AdvReac Type Severity Reaction Status Date / Time No Known Allergies Allergy Verified 09/12/20 13:30 Review of Systems ROS Statement: Those systems with pertinent positive or pertinent negative responses have been documented in the HPI. ROS Other: All systems not noted in ROS Statement are negative. Past Medical History Past Medical History: COPD, Hypertension Additional Past Medical History / Comment(s): pt states sexual issue in the past would not go into deals History of Any Multi-Drug Resistant Organisms: None Reported Past Surgical History: Adenoidectomy, Heart Catheterization, Orthopedic Surgery, Prostate Surgery, Tonsillectomy Additional Past Surgical History / Comment(s): left wrist surgery 12 years ago,. cardiac cath- aug 2020. reduction of prostate. Past Anesthesia/Blood Transfusion Reactions: No Reported Reaction Past Psychological History: Anxiety, Bipolar, Depression Smoking Status: Former smoker Past Alcohol Use History: None Reported Past Drug Use History: None Reported - Past Family History Mother Family Medical History: Cancer Father Family Medical History: Cancer General Exam Limitations: no limitations Course Vital Signs 09/12/20 12:37 Temperature 98.2 F Pulse Rate 66 Respiratory 20 Rate Blood Pressure 107/63 O2 Sat by Pulse 95 Oximetry Medical Decision Making - Lab Data Result diagrams: 09/12/20 12:57 09/12/20 12:57 Lab Results 09/12/20 09/12/20 09/12/20 Range/Units 12:57 12:57 12:57 WBC 6.8 (3.8-10.6) k/uL RBC 4.90 (4.30-5.90) m/uL Hgb 15.3 (13.0-17.5) gm/dL Hct 47.6 (39.0-53.0) % MCV 97.0 (80.0-100.0) fL MCH 31.1 (25.0-35.0) pg MCHC 32.1 (31.0-37.0) g/dL RDW 13.9 (11.5-15.5) % Plt Count 152 (150-450) k/uL Neutrophils % 73 % Lymphocytes % 17 % Monocytes % 4 % Eosinophils % 4 % Basophils % 1 % Neutrophils # 5.0 (1.3-7.7) k/uL Lymphocytes # 1.1 (1.0-4.8) k/uL Monocytes # 0.3 (0-1.0) k/uL Eosinophils # 0.2 (0-0.7) k/uL Basophils # 0.1 (0-0.2) k/uL PT 17.3 H (9.0-12.0) sec INR 1.8 H (<1.2) APTT 29.7 (22.0-30.0) sec Sodium 142 (137-145) mmol/L Potassium 3.8 (3.5-5.1) mmol/L Chloride 107 (98-107) mmol/L Carbon Dioxide 30 (22-30) mmol/L Anion Gap 5 mmol/L BUN 28 H (9-20) mg/dL Creatinine 1.11 (0.66-1.25) mg/dL Est GFR (CKD-EPI)AfAm 74 (>60 ml/min/1.73 sqM) Est GFR (CKD-EPI)NonAf 64 (>60 ml/min/1.73 sqM) Glucose 117 H (74-99) mg/dL Calcium 9.2 (8.4-10.2) mg/dL Magnesium 2.1 (1.6-2.3) mg/dL Total Bilirubin 0.5 (0.2-1.3) mg/dL AST 20 (17-59) U/L ALT 14 (4-49) U/L Alkaline Phosphatase 98 (38-126) U/L Troponin I (0.000-0.034) ng/mL Total Protein 6.3 (6.3-8.2) g/dL Albumin 3.6 (3.5-5.0) g/dL TSH 1.000 (0.465-4.680) mIU/L 09/12/20 Range/Units 12:57 WBC (3.8-10.6) k/uL RBC (4.30-5.90) m/uL Hgb (13.0-17.5) gm/dL Hct (39.0-53.0) % MCV (80.0-100.0) fL MCH (25.0-35.0) pg MCHC (31.0-37.0) g/dL RDW (11.5-15.5) % Plt Count (150-450) k/uL Neutrophils % % Lymphocytes % % Monocytes % % Eosinophils % % Basophils % % Neutrophils # (1.3-7.7) k/uL Lymphocytes # (1.0-4.8) k/uL Monocytes # (0-1.0) k/uL Eosinophils # (0-0.7) k/uL Basophils # (0-0.2) k/uL PT (9.0-12.0) sec INR (<1.2) APTT (22.0-30.0) sec Sodium (137-145) mmol/L Potassium (3.5-5.1) mmol/L Chloride (98-107) mmol/L Carbon Dioxide (22-30) mmol/L Anion Gap mmol/L BUN (9-20) mg/dL Creatinine (0.66-1.25) mg/dL Est GFR (CKD-EPI)AfAm (>60 ml/min/1.73 sqM) Est GFR (CKD-EPI)NonAf (>60 ml/min/1.73 sqM) Glucose (74-99) mg/dL Calcium (8.4-10.2) mg/dL Magnesium (1.6-2.3) mg/dL Total Bilirubin (0.2-1.3) mg/dL AST (17-59) U/L ALT (4-49) U/L Alkaline Phosphatase (38-126) U/L Troponin I <0.012 (0.000-0.034) ng/mL Total Protein (6.3-8.2) g/dL Albumin (3.5-5.0) g/dL TSH (0.465-4.680) mIU/L Disposition Clinical Impression: Bradycardia Disposition: ADMITTED IP TO THIS HOSP Condition: Fair Referrals: Alvin Mott MD [Primary Care Provider] - 1-2 days Decision Time: 14:02
[2020-09-12 13:07] LABS: Basophils # (A) 0.1 k/uL (0-0.2); Basophils % (A) 1 %; Eosinophils # (A) 0.2 k/uL (0-0.7); Eosinophils % (A) 4 %; HCT 47.6 % (39.0-53.0); HGB 15.3 gm/dL (13.0-17.5); Lymphocytes # (A) 1.1 k/uL (1.0-4.8); Lymphocytes % (A) 17 %; MCH 31.1 pg (25.0-35.0); MCHC 32.1 g/dL (31.0-37.0); Mean Platelet Volume 7.3; Monocytes # (A) 0.3 k/uL (0-1.0); Monocytes % (A) 4 %; Neutrophils % (A) 73 %; Platelet Count 152 k/uL (150-450); RDW 13.9 % (11.5-15.5); WBC 6.8 k/uL (3.8-10.6)
[2020-09-12 13:18] LABS: INR 1.8 (<1.2); Partial Thromboplastin Time 29.7 sec (22.0-30.0); Prothrombin Time 17.3 sec (9.0-12.0)
[2020-09-12 13:19] LABS: Albumin 3.6 g/dL (3.5-5.0); Calcium 9.2 mg/dL (8.4-10.2); Magnesium 2.1 mg/dL (1.6-2.3); Potassium 3.8 mmol/L (3.5-5.1); Total Bilirubin 0.5 mg/dL (0.2-1.3); Total Protein 6.3 g/dL (6.3-8.2)
--- NOTE | 2020-09-12 13:50 | XR ---
EXAMINATION TYPE: XR chest 2V DATE OF EXAM: 09/12/2020 COMPARISON: 06/16/2020 TECHNIQUE: PA and lateral views submitted. HISTORY: Elevated heart rate FINDINGS: The lungs are clear and there is no pneumothorax, pleural effusion, or focal pneumonia. Heart is pr ominent. Somewhat coarsened interstitium. Degenerative change of the spine. Limitation of the left christina ng base due to technique. Prominence the right paratracheal stripe noted could be related to a promin ent thyroid gland or patient rotation. Similar to the prior exam. IMPRESSION: 1. Basilar atelectasis favored over pneumonia correlate clinically. 2. Correlate for COPD and chronic interstitial lung disease.
[2020-09-12] MEDS ORDERED: ONDANSETRON 4 MG/2 ML VIAL IVP PRN (14:02)
[2020-09-12] MEDS ORDERED: NALOXONE 0.4 MG/ML 1 ML VIAL IV PRN (14:02)
[2020-09-12] MEDS ORDERED: WARFARIN 5 MG TAB PO SCH (14:15)
[2020-09-12] MEDS: SODIUM CHLORIDE 0.9% 1,000 ML IV SCH (17:17)
[2020-09-12] MEDS ORDERED: WARFARIN 5 MG TAB PO ONE (18:00)
--- NOTE | 2020-09-12 20:15 | P.HPIM ---
History of Present Illness This is a pleasant 75 years old male with past medical history of COPD, hypertension, coronary artery disease, hyperlipidemia, pulmonary embolism and DVT on Coumadin, severe COPD with FEV1 55% on home oxygen at 2 L/m, dementia, morbid obesity, BPH, recurrent UTI, bipolar and anxiety disorder. Patient underwent cardiac cath about one week ago showing triple coronary artery disease with left main stenosis of 80%, ostial LAD stenosis of 80-90% and ostial left circumflex stenosis of 70% with 80% stenosis in the obtuse marginal branch and total occlusion of the right coronary arteries. Echo showing ejection fraction of 50-55% with inferior basal hypokinesia. He is been evaluated by Dr. Mcdonough for possible bypass surgery however later on patient changed his mind and declined surgical intervention. This time patient presents because of bradycardia, he states that he has a niece which check his heart rate and she is been told him that his heart rate is as low as 42 bpm, however patient denies chest pain or dizziness or palpitations. No dyspnea, no change in mental status, no change in urine or bowel habits. No fever Patient is an ex-smoker Heart rate currently 52-62, blood pressure 102/62, patient is afebrile. Labs show an unremarkable CBC, BMP and liver enzymes. INR is 1.8 Review of Systems CONSTITUTIONAL: No fever, no malaise, no fatigue. HEENT: No recent visual problems or hearing problems. Denied any sore throat. CARDIOVASCULAR: No orthopnea, PND, no palpitations, no syncope. PULMONARY: No shortness of breath, no cough, no hemoptysis. GASTROINTESTINAL: No diarrhea, no nausea, no vomiting, no abdominal pain. Normoactive bowel sounds. NEUROLOGICAL: No headaches, no weakness, no numbness. HEMATOLOGICAL: Denies any bleeding or petechiae. GENITOURINARY: Denies any burning micturition, frequency, or urgency. MUSCULOSKELETAL/RHEUMATOLOGICAL: Denies any joint pain, swelling, or any muscle pain. ENDOCRINE: Denies any polyuria or polydipsia. Past Medical History Past Medical History: COPD, Hypertension Additional Past Medical History / Comment(s): pt states sexual issue in the past would not go into deals History of Any Multi-Drug Resistant Organisms: None Reported Past Surgical History: Adenoidectomy, Heart Catheterization, Orthopedic Surgery, Prostate Surgery, Tonsillectomy Additional Past Surgical History / Comment(s): left wrist surgery 12 years ago,. cardiac cath- aug 2020. reduction of prostate. Past Anesthesia/Blood Transfusion Reactions: No Reported Reaction Past Psychological History: Anxiety, Bipolar, Depression Additional Psychological History / Comment(s): Patient caregiver states that symptoms have been worse since incarceration in June 2019, previous suicide attempt by cutting left wrist "years ago", per patient. no vocalization of any feelings this way. Smoking Status: Former smoker Past Alcohol Use History: None Reported Additional Past Alcohol Use History / Comment(s): pt states he used to drink daily but quit Past Drug Use History: None Reported - Past Family History Mother Family Medical History: Cancer Father Family Medical History: Cancer Medications and Allergies Home Medications Medication Instructions Recorded Confirmed Type Levocetirizine Dihydrochloride 5 mg PO DAILY 11/23/18 09/12/20 History [Xyzal] FLUoxetine HCL [PROzac] 20 mg PO HS 08/10/19 09/12/20 History Loperamide HCl [Imodium A-D] 4 mg PO HS 08/10/19 09/12/20 History ARIPiprazole [Abilify] 5 mg PO DAILY 08/11/19 09/12/20 History Fluticasone Nasal [place] [Flonase 2 spray EA NOSTRIL DAILY spr 08/13/19 09/12/20 Rx Nasal [place]] Metoprolol Succinate (ER) [Toprol 25 mg PO HS #30 tab.er.24h 11/04/19 09/12/20 Rx XL] Ipratropium [place] [Atrovent Hfa] 2 puff INHALATION RT-DAILY 05/08/20 09/12/20 History Warfarin Sodium [Coumadin] 2.5 mg PO SUTHSA 05/08/20 09/12/20 History Warfarin Sodium [Coumadin] 5 mg PO MOTUWEFR 05/08/20 09/12/20 History Albuterol Nebulized [Ventolin 2.5 mg INHALATION RT-QID 09/12/20 09/12/20 History Nebulized] Atorvastatin [Lipitor] 40 mg PO HS 09/12/20 09/12/20 History Furosemide [Lasix] 40 mg PO Q48H 09/12/20 09/12/20 History Losartan Potassium 25 mg PO BID 09/12/20 09/12/20 History Allergies Allergy/AdvReac Type Severity Reaction Status Date / Time No Known Allergies Allergy Verified 09/12/20 13:30 Physical Exam Vitals: Vital Signs Temp Pulse Pulse Resp BP BP Pulse Ox 09/12/20 16:05 97.6 F 62 14 102/62 93 L 09/12/20 15:25 52 L 14 109/68 96 09/12/20 14:12 59 L 12 108/64 94 L 09/12/20 12:37 98.2 F 66 20 107/63 95 Intake and Output 09/12/20 09/12/20 09/12/20 06:59 14:59 22:59 Other: Weight 115.666 kg 115.666 kg -GENERAL: The patient is alert and oriented x2-3, not in any acute distress. Obese HEENT: Pupils are round and equally reacting to light. EOMI. No scleral icterus. No conjunctival pallor. Normocephalic, atraumatic. No pharyngeal erythema. No thyromegaly. CARDIOVASCULAR: S1 and S2 present. No murmurs, rubs, or gallops. PULMONARY: Chest is clear to auscultation, no wheezing or crackles. ABDOMEN: Soft, nontender, nondistended, normoactive bowel sounds. No palpable organomegaly. MUSCULOSKELETAL: No joint swelling or deformity. EXTREMITIES: No cyanosis, clubbing, or pedal edema. NEUROLOGICAL: Gross neurological examination did not reveal any focal deficits. SKIN: No rashes. No petechiae Results CBC & Chem 7: 09/12/20 12:57 09/12/20 12:57 Labs: Abnormal Lab Results - Last 24 Hours (Table) 09/12/20 09/12/20 Range/Units 12:57 12:57 PT 17.3 H (9.0-12.0) sec INR 1.8 H (<1.2) BUN 28 H (9-20) mg/dL Glucose 117 H (74-99) mg/dL Thrombosis Risk Factor Assmnt - Choose All That Apply Any of the Below Risk Factors Present?: Yes Each Factor Represents 1 point: Obesity (BMI >25) Other Risk Factors: Yes Each Risk Factor Represents 3 Points: Age 75 years or older Other congenital or acquired thrombophilia - If yes, enter type in comment: No Thrombosis Risk Factor Assessment Total Risk Factor Score: 4 Thrombosis Risk Factor Assessment Level: Moderate Risk Assessment and Plan Assessment: Bradycardia Severe triple coronary artery disease with total occlusion of the right coronary artery and 50% occlusion of the left main coronary artery noncompliance or non-adherence to therapy Hypertension Hyperlipidemia History of PE and DVT on Coumadin Severe COPD with FEV1 of 55% on home oxygen at 2 L/m due to chronic hypoxic respiratory failure Dementia Morbid obesity BPH Recurrent UTI History of bipolar and anxiety disorder, not in active tissue Plan: This is a pleasant 75 male who presents because of bradycardia in view of his triple coronary artery disease, patient declined cardiovascular surgical intervention. We'll continue with telemetry monitoring, we'll hold metoprolol and lisinopril for bradycardia and low normal blood pressure. Cardiology consult We will discuss with the patient again if he changes his mind then we will call cardiovascular surgical intervention for his significant triple coronary artery disease Labs and medication were reviewed.. Continue same treatment. Continue with symptomatic treatment. Resume home medication. Monitor lytes and vitals. DVT and GI prophylaxis. Further recommendationsas per clinical course of the patient DVT prophylaxis: Coumadin GI Prophylaxis: Pepcid PT/OT: Pending Prognosis is guarded given his multiple and complex medical issues and refusal of proper treatment
[2020-09-12] MEDS: ALBUTEROL NEBULIZED 2.5 MG/3 ML INHALATION SCH (20:46)
[2020-09-12] MEDS ORDERED: METOPROLOL SUCCINATE (ER) 25 MG TAB.ER.24H PO SCH (21:00)
[2020-09-12] MEDS ORDERED: LOSARTAN 50 MG TAB PO SCH (21:00)
[2020-09-12] MEDS: ATORVASTATIN 40 MG TAB PO SCH (21:26)
[2020-09-12] MEDS: FLUoxetine HCL 20 MG CAP PO SCH (21:26)
[2020-09-13 07:30] LABS: INR 2.2 (<1.2); Prothrombin Time 21.1 sec (9.0-12.0)
[2020-09-13] MEDS: ALBUTEROL NEBULIZED 2.5 MG/3 ML INHALATION SCH ×4 (07:30→19:48)
[2020-09-13] MEDS: ARIPiprazole 5 MG TAB PO SCH (08:49)
[2020-09-13] MEDS ORDERED: FUROSEMIDE 40 MG TAB PO SCH (09:00)
[2020-09-13] MEDS: FLUTICASONE 50MCG/SPRAY NASAL 16GM EA NOSTRIL SCH (12:15)
--- NOTE | 2020-09-13 12:23 | P.CRDCN ---
History of Present Illness Consult date: 09/13/20 History of present illness: This is 75-year-old gentleman with history ofCOPD, hypertension and multivessel coronary artery disease and also history of pulmonary embolism and DVT was brought in because he was found to be bradycardic. Apparently his and his felt his pulse and felt that it was in the 40s. Patient denied any chest pain, dizziness or syncope. Has chronic shortness of breath. Apparently patient was evaluated by cardiac surgeons for possible bypass surgery. This point. Family doesn't want bypass surgery or more inclined to have percutaneous intervention. As patient was bradycardi, His beta tremayne was held. Patient is having a lot of PVCs and an episode of nonsustained V. tach.The patient is asymptomatic from these episodes.As patient is inclined to have percutaneous intervention, We'll continue medical therapy. We'll discuss with the Dr. Cristina for possible intervention. Further recommendations depend upon the capital course. Silvestre fried ld anticoagulation Past Medical History Past Medical History: COPD, Hypertension Additional Past Medical History / Comment(s): pt states sexual issue in the past would not go into deals History of Any Multi-Drug Resistant Organisms: None Reported Past Surgical History: Adenoidectomy, Heart Catheterization, Orthopedic Surgery, Prostate Surgery, Tonsillectomy Additional Past Surgical History / Comment(s): left wrist surgery 12 years ago,. cardiac cath- aug 2020. reduction of prostate. Past Anesthesia/Blood Transfusion Reactions: No Reported Reaction Past Psychological History: Anxiety, Bipolar, Depression Additional Psychological History / Comment(s): Patient caregiver states that symptoms have been worse since incarceration in June 2019, previous suicide attempt by cutting left wrist "years ago", per patient. no vocalization of any feelings this way. Smoking Status: Former smoker Past Alcohol Use History: None Reported Additional Past Alcohol Use History / Comment(s): pt states he used to drink daily but quit Past Drug Use History: None Reported - Past Family History Mother Family Medical History: Cancer Father Family Medical History: Cancer Medications and Allergies Home Medications Medication Instructions Recorded Confirmed Type Levocetirizine Dihydrochloride 5 mg PO DAILY 11/23/18 09/12/20 History [Xyzal] FLUoxetine HCL [PROzac] 20 mg PO HS 08/10/19 09/12/20 History Loperamide HCl [Imodium A-D] 4 mg PO HS 08/10/19 09/12/20 History ARIPiprazole [Abilify] 5 mg PO DAILY 08/11/19 09/12/20 History Fluticasone Nasal [place] [Flonase 2 spray EA NOSTRIL DAILY spr 08/13/19 09/12/20 Rx Nasal [place]] Metoprolol Succinate (ER) [Toprol 25 mg PO HS #30 tab.er.24h 11/04/19 09/12/20 Rx XL] Ipratropium [place] [Atrovent Hfa] 2 puff INHALATION RT-DAILY 05/08/20 09/12/20 History Warfarin Sodium [Coumadin] 2.5 mg PO SUTHSA 05/08/20 09/12/20 History Warfarin Sodium [Coumadin] 5 mg PO MOTUWEFR 05/08/20 09/12/20 History Albuterol Nebulized [Ventolin 2.5 mg INHALATION RT-QID 09/12/20 09/12/20 History Nebulized] Atorvastatin [Lipitor] 40 mg PO HS 09/12/20 09/12/20 History Furosemide [Lasix] 40 mg PO Q48H 09/12/20 09/12/20 History Losartan Potassium 25 mg PO BID 09/12/20 09/12/20 History Allergies Allergy/AdvReac Type Severity Reaction Status Date / Time No Known Allergies Allergy Verified 09/12/20 13:30 Physical Exam Vitals: Vital Signs Temp Pulse Pulse Resp BP BP Pulse Ox 09/13/20 09:00 98.2 F 62 14 114/68 09/13/20 07:46 65 09/13/20 07:30 62 09/13/20 03:00 98.0 F 54 L 19 113/59 93 L 09/12/20 21:00 97.3 F L 55 L 16 116/76 98 09/12/20 20:55 64 09/12/20 20:46 60 96 09/12/20 16:05 97.6 F 62 14 102/62 93 L 09/12/20 15:25 52 L 14 109/68 96 09/12/20 14:12 59 L 12 108/64 94 L 09/12/20 12:37 98.2 F 66 20 107/63 95 Intake and Output 09/12/20 09/13/20 09/13/20 22:59 06:59 14:59 Other: # Voids 1 0 Weight 115.666 kg GENERAL EXAM: Patient is alert and oriented and doesn't appear to be in any acute distress HEENT: Normocephalic. NECK: No masses, no nuchal rigidity. CHEST: No chest wall deformity. LUNGS: diminished air entry HEART: S1 and S2 heard. Distant heart sounds ABDOMEN: Distended abdomen SKIN: No rashes CENTRAL NERVOUS SYSTEM: No focal deficits. EXTREMITIES: Mild edema Results 09/12/20 12:57 09/12/20 12:57 Cardiac Enzymes 09/12/20 09/12/20 Range/Units 12:57 12:57 AST 20 (17-59) U/L Troponin I <0.012 (0.000-0.034) ng/mL Coagulation 09/12/20 09/13/20 Range/Units 12:57 06:38 PT 17.3 H 21.1 H (9.0-12.0) sec APTT 29.7 (22.0-30.0) sec CBC 09/12/20 Range/Units 12:57 WBC 6.8 (3.8-10.6) k/uL RBC 4.90 (4.30-5.90) m/uL Hgb 15.3 (13.0-17.5) gm/dL Hct 47.6 (39.0-53.0) % Plt Count 152 (150-450) k/uL Comprehensive Metabolic Panel 09/12/20 Range/Units 12:57 Sodium 142 (137-145) mmol/L Potassium 3.8 (3.5-5.1) mmol/L Chloride 107 (98-107) mmol/L Carbon Dioxide 30 (22-30) mmol/L BUN 28 H (9-20) mg/dL Creatinine 1.11 (0.66-1.25) mg/dL Glucose 117 H (74-99) mg/dL Calcium 9.2 (8.4-10.2) mg/dL AST 20 (17-59) U/L ALT 14 (4-49) U/L Alkaline Phosphatase 98 (38-126) U/L Total Protein 6.3 (6.3-8.2) g/dL Albumin 3.6 (3.5-5.0) g/dL Current Medications Generic Name Dose Route Start Last Admin Trade Name Freq PRN Reason Stop Dose Admin Albuterol Sulfate 2.5 mg 09/12/20 20:00 09/13/20 07:30 Albuterol Nebulized 2.5 Mg/3 Ml INHALATION 2.5 mg RT-QID ALIREZA Administration Aripiprazole 5 mg 09/13/20 09:00 09/13/20 08:49 Aripiprazole 5 Mg Tab PO 5 mg DAILY ALIREZA Administration Atorvastatin Calcium 40 mg 09/12/20 21:00 09/12/20 21:26 Atorvastatin 40 Mg Tab PO 40 mg HS ALIREZA Administration Fluoxetine HCl 20 mg 09/12/20 21:00 09/12/20 21:26 Fluoxetine Hcl 20 Mg Cap PO 20 mg HS ALIREZA Administration Fluticasone Propionate 2 spray 09/13/20 09:00 09/13/20 12:15 Fluticasone 50mcg/[place] Nasal 16gm EA NOSTRIL Not Given DAILY ALIREZA Furosemide 40 mg 09/13/20 09:00 09/13/20 08:49 Furosemide 40 Mg Tab PO 40 mg Q48H ALIREZA Administration Sodium Chloride 1,000 mls @ 20 mls/hr 09/12/20 14:15 09/12/20 17:17 Saline 0.9% IV Not Given .Q24H ALIREZA Miscellaneous Information 0 each 09/12/20 14:16 Warfarin Per Pharmacy MISCELLANE DIRECTED PRN PHARMACY DOSING WARFARIN Naloxone HCl 0.2 mg 09/12/20 14:02 Naloxone 0.4 Mg/Ml 1 Ml Vial IV Q2M PRN Opioid Reversal Ondansetron HCl 4 mg 09/12/20 14:02 Ondansetron 4 Mg/2 Ml Vial IVP Q8HR PRN Nausea And Vomiting Warfarin Sodium 0 mg 09/13/20 18:00 Warfarin 0.5 Mg Tab PO 09/13/20 18:01 ONCE@1800 ONE Intake and Output 09/12/20 09/13/20 09/13/20 22:59 06:59 14:59 Other: # Voids 1 0 Weight 115.666 kg 09/12/20 12:57 09/12/20 12:57 EKG Interpretations (text) Sinus rhythm and sinus bradycardia with frequent PVCs Assessment and Plan (1) Coronary artery disease Current Visit: Yes Status: Acute Code(s): I25.10 - ATHSCL HEART DISEASE OF [place] CORONARY ARTERY W/O ANG PCTRS SNOMED Code(s): 52285031 (2) Bradycardia Current Visit: Yes Status: Acute Code(s): R00.1 - BRADYCARDIA, UNSPECIFIED SNOMED Code(s): 44331439 (3) Nonsustained ventricular tachycardia Current Visit: Yes Status: Acute Code(s): I47.2 - VENTRICULAR TACHYCARDIA SNOMED Code(s): 651419321 (4) COPD (chronic obstructive pulmonary disease) Current Visit: Yes Status: Acute Code(s): J44.9 - CHRONIC OBSTRUCTIVE PULMONARY DISEASE, UNSPECIFIED SNOMED Code(s): 77865260 Plan: Beta blockers are being held because of bradycardia. Patient and niece wants patient to have percutaneous intervention. We'll hold anticoagulation We will discuss with the Dr. Cristina regarding intervention
--- NOTE | 2020-09-13 12:45 | P.PN ---
Subjective This is a pleasant 75 years old male with past medical history of COPD, hypertension, coronary artery disease, hyperlipidemia, pulmonary embolism and DVT on Coumadin, severe COPD with FEV1 55% on home oxygen at 2 L/m, dementia, morbid obesity, BPH, recurrent UTI, bipolar and anxiety disorder. Patient underwent cardiac cath about one week ago showing triple coronary artery disease with left main stenosis of 80%, ostial LAD stenosis of 80-90% and ostial left circumflex stenosis of 70% with 80% stenosis in the obtuse marginal branch and total occlusion of the right coronary arteries. Echo showing ejection fraction of 50-55% with inferior basal hypokinesia. He is been evaluated by Dr. Mcdonough for possible bypass surgery however later on patient changed his mind and declined surgical intervention. This time patient presents because of bradycardia, he states that he has a niece which check his heart rate and she is been told him that his heart rate is as low as 42 bpm, however patient denies chest pain or dizziness or palpitations. No dyspnea, no change in mental status, no change in urine or bowel habits. No fever Patient is an ex-smoker Heart rate currently 52-62, blood pressure 102/62, patient is afebrile. Labs show an unremarkable CBC, BMP and liver enzymes. INR is 1.8 09/13/2020 Patient feels generally weak but no chest pain or palpitation or dizziness or dyspnea. No other complaints, no GI or urinary symptoms. When intact to the patient this morning he still declines surgery. As per cardiology there is a plan for percutaneous intervention with recommendation to hold anticoagulation So warfarin was stopped. INR today was 2.2. We'll keep follow-up with cardiology team Objective - Vital Signs Vital signs: Vital Signs Temp 98.2 F 09/13/20 09:00 Pulse 66 09/13/20 12:20 Resp 14 09/13/20 09:00 BP 114/68 09/13/20 09:00 Pulse Ox 93 L 09/13/20 03:00 Intake & Output 09/12/20 09/13/20 09/13/20 18:59 06:59 18:59 Weight 115.666 kg Other: # Voids 0 - Exam -GENERAL: The patient is alert and oriented x3, not in any acute distress. Obese. Generally weak HEENT: Pupils are round and equally reacting to light. EOMI. No scleral icterus. No conjunctival pallor. Normocephalic, atraumatic. No pharyngeal erythema. No thyromegaly. CARDIOVASCULAR: S1 and S2 present. No murmurs, rubs, or gallops. PULMONARY: Chest is clear to auscultation, no wheezing or crackles. ABDOMEN: Soft, nontender, nondistended, normoactive bowel sounds. No palpable organomegaly. MUSCULOSKELETAL: No joint swelling or deformity. EXTREMITIES: No cyanosis, clubbing, or pedal edema. NEUROLOGICAL: Gross neurological examination did not reveal any focal deficits. SKIN: No rashes. no petechiae. - Labs CBC & Chem 7: 09/12/20 12:57 09/12/20 12:57 Labs: Abnormal Lab Results - Last 24 Hours (Table) 09/12/20 09/12/20 09/13/20 Range/Units 12:57 12:57 06:38 PT 17.3 H 21.1 H (9.0-12.0) sec INR 1.8 H 2.2 H (<1.2) BUN 28 H (9-20) mg/dL Glucose 117 H (74-99) mg/dL Assessment and Plan Assessment: Bradycardia Severe triple coronary artery disease with total occlusion of the right coronary artery and 50% occlusion of the left main coronary artery noncompliance or non-adherence to therapy Hypertension Hyperlipidemia History of PE and DVT on Coumadin Severe COPD with FEV1 of 55% on home oxygen at 2 L/m due to chronic hypoxic respiratory failure Dementia Morbid obesity BPH Recurrent UTI History of bipolar and anxiety disorder, not in active tissue Plan: This is a pleasant 75 male who presents because of bradycardia in view of his triple coronary artery disease, patient declined cardiovascular surgical intervention. We'll continue with telemetry monitoring, we'll hold metoprolol and lisinopril for bradycardia and low normal blood pressure. Cardiology consult We will discuss with the patient again if he changes his mind then we will call cardiovascular surgical intervention for his significant triple coronary artery disease Labs and medication were reviewed.. Continue same treatment. Continue with symptomatic treatment. Resume home medication. Monitor lytes and vitals. DVT and GI prophylaxis. Further recommendationsas per clinical course of the patient DVT prophylaxis: Coumadin GI Prophylaxis: Pepcid PT/OT: Pending Prognosis is guarded given his multiple and complex medical issues and refusal of proper treatment
[2020-09-13] MEDS: SODIUM CHLORIDE 0.9% 1,000 ML IV SCH (14:49)
[2020-09-13] MEDS ORDERED: WARFARIN 0.5 MG TAB PO ONE (18:00)
[2020-09-13] MEDS: ATORVASTATIN 40 MG TAB PO SCH (20:15)
[2020-09-13] MEDS: FLUoxetine HCL 20 MG CAP PO SCH (20:15)
[2020-09-14 07:28] LABS: INR 1.8 (<1.2)
[2020-09-14] MEDS: ALBUTEROL NEBULIZED 2.5 MG/3 ML INHALATION SCH ×3 (07:54→15:40)
[2020-09-14 08:31] VITALS: RESP 16
[2020-09-14] MEDS: ARIPiprazole 5 MG TAB PO SCH (08:38)
[2020-09-14] MEDS: FLUTICASONE 50MCG/SPRAY NASAL 16GM EA NOSTRIL SCH (08:38)
--- NOTE | 2020-09-14 11:49 | P.PN ---
Subjective Progress Note Date: 09/14/20 History of present illness: This is 75-year-old gentleman with history of COPD, hypertension and multivessel coronary artery disease and also history of pulmonary embolism and DVT was brought in because he was found to be bradycardic. Apparently his and his felt his pulse and felt that it was in the 40s. Patient denied any chest pain, dizziness or syncope. Has chronic shortness of breath. Apparently patient was evaluated by cardiac surgeons for possible bypass surgery. This point. Family doesn't want bypass surgery or more inclined to have percutaneous intervention. As patient was bradycardi, His beta tremayne was held. Patient is having a lot of PVCs and an episode of nonsustained V. tach. The patient is asymptomatic from these episodes. 09/14/2020 Patient seen and examined. Patient denies any chest pain or pressure. Patient is still having nonsustained VT however asymptomatic. Beta tremayne has been held secondary to bradycardia. Anticoagulation has been on hold. PHYSICAL EXAMINATION Blood pressure 139/84 heart rate 51 afebrile and maintaining oxygen saturation on Room air. GENERAL EXAM: Patient is alert and oriented and doesn't appear to be in any acute distress HEENT: Normocephalic. NECK: No masses, no nuchal rigidity. CHEST: No chest wall deformity. LUNGS: diminished air entry HEART: S1 and S2 heard. Distant heart sounds ABDOMEN: Distended abdomen SKIN: No rashes CENTRAL NERVOUS SYSTEM: No focal deficits.Poor recall of medical history EXTREMITIES: Mild edema Assessment and Plan (1) Coronary artery disease Current Visit: Yes Status: Acute Code(s): I25.10 - ATHSCL HEART DISEASE OF [place] CORONARY ARTERY W/O ANG PCTRS SNOMED Code(s): 21179150 (2) Bradycardia Current Visit: Yes Status: Acute Code(s): R00.1 - BRADYCARDIA, UNSPECIFIED SNOMED Code(s): 26886442 (3) Nonsustained ventricular tachycardia Current Visit: Yes Status: Acute Code(s): I47.2 - VENTRICULAR TACHYCARDIA SNOMED Code(s): 325546934 (4) COPD (chronic obstructive pulmonary disease) Current Visit: Yes Status: Acute Code(s): J44.9 - CHRONIC OBSTRUCTIVE PULMONARY DISEASE, UNSPECIFIED SNOMED Code(s): 32187014 Plan: Asymptomatic sinus bradycardia with PACs. Continue to hold beta tremayne at this time. Patient additionally having nonsustained VT and recent heart catheterization with heavily calcified arteries, 80% left main stenosis,LAD80 and 90% stenosis, circumflex 70% stenosis and RCA totally occluded. Family previously not desiring any bypass. PCI would be highly complex.Continue to hold Coumadin for possible PCI. INR currently 1.8 today. We will reassess tomorrow and discuss further with Dr. Cristina. Objective - Vital Signs Vital signs: Vital Signs Temp 98.6 F 09/14/20 08:28 Pulse 51 L 09/14/20 08:28 Resp 16 09/14/20 08:28 BP 139/84 09/14/20 08:28 Pulse Ox 93 L 09/14/20 08:28 Intake & Output 09/13/20 09/14/20 09/14/20 18:59 06:59 18:59 Intake Total 20 Balance 20 Intake: Intake, IV Titration 20 Amount Sodium Chloride 0.9% 1, 20 000 ml @ 20 mls/hr IV . Q24H [facility] Rx#:[id number] Other: Voiding Method Toilet Toilet # Voids 1 - Labs CBC & Chem 7: 09/12/20 12:57 09/12/20 12:57 Labs: Abnormal Lab Results - Last 24 Hours (Table) 09/14/20 Range/Units 06:29 PT 18.0 H (9.0-12.0) sec INR 1.8 H (<1.2)
[2020-09-14] MEDS ORDERED: WARFARIN 5 MG TAB PO SCH (14:03)
[2020-09-14 15:55] VITALS: BP 127/69; PULSE 42; TEMP 98.1
[2020-09-14] MEDS: SODIUM CHLORIDE 0.9% 1,000 ML IV SCH (16:01)
[2020-09-14] MEDS ORDERED: WARFARIN 0.5 MG TAB PO ONE (18:00)
--- NOTE | 2020-09-14 22:54 | P.DS ---
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 Patient underwent cardiac cath about one week ago showing triple coronary artery disease with left main stenosis of 80%, ostial LAD stenosis of 80-90% and ostial left circumflex stenosis of 70% with 80% stenosis in the obtuse marginal branch and total occlusion of the right coronary arteries. Echo showing ejection fraction of 50-55% with inferior basal hypokinesia. He is been evaluated by Dr. Mcdonough for possible bypass surgery however later on patient changed his mind and declined surgical intervention. This time patient presents because of bradycardia, he states that he has a niece which check his heart rate and she is been told him that his heart rate is as low as 42 bpm, however patient denies chest pain or dizziness or palpitations. Beta tremayne was held. Synthetic Gem Press Operator evaluated the patient Synthetic Gem Press Operator Dr. Denise considered percutaneous intervention tomorrow, however later on today to discuss the case with Dr. Cristina and informed the staff that the patient is actually cleared for discharge home today. Eventually patient remained asymptomatic. On the day of discharge he denies chest pain or dyspnea, no abdominal pain, no change in urine or bowel habits. No fever His heart rate: This stable bradycardia and patient is asymptomatic Patient was cleared for discharge by cardiology team Metoprolol was discontinued upon discharge, patient informed Problems and management plan were discussed with the patient and he verbalized understanding and acceptance Patient was found stable and can be discharged home however he needs follow-up as an outpatient. Patient was instructed to follow up with PCP within one week and patient agrees. The patient also was instructed to follow up with his tangled yarn spool straightener Dr. Cristina in one week. Staff made appointment for the patient and he agrees, see discharge instructions Gen: patient is a AAOx3, no distress CVS: S1-S2, RRR, no murmur Lungs: B/L CTA, no wheezing Abdomen: soft, no distention, no tenderness, positive bowel sounds Extremity: no leg edema or induration Time spent more than 35 minutes Patient Condition at Discharge: Fair Plan - Discharge Summary Discharge Rx Participant: No New Discharge Prescriptions: Continue FLUoxetine HCL [PROzac] 20 mg PO HS ARIPiprazole [Abilify] 5 mg PO DAILY Fluticasone Nasal [place] [Flonase Nasal [place]] 2 spray EA NOSTRIL DAILY spr Ipratropium [place] [Atrovent Hfa] 2 puff INHALATION RT-DAILY Warfarin Sodium [Coumadin] 2.5 mg PO SUTHSA Warfarin Sodium [Coumadin] 5 mg PO MOTUWEFR Losartan Potassium 25 mg PO BID Furosemide [Lasix] 40 mg PO Q48H Atorvastatin [Lipitor] 40 mg PO HS Albuterol Nebulized [Ventolin Nebulized] 2.5 mg INHALATION RT-QID Discontinued Levocetirizine Dihydrochloride [Xyzal] 5 mg PO DAILY Loperamide HCl [Imodium A-D] 4 mg PO HS Metoprolol Succinate (ER) [Toprol XL] 25 mg PO HS #30 tab.er.24h Discharge Medication List FLUoxetine HCL [PROzac] 20 mg PO HS 08/10/19 [History] ARIPiprazole [Abilify] 5 mg PO DAILY 08/11/19 [History] Fluticasone Nasal [place] [Flonase Nasal [place]] 2 spray EA NOSTRIL DAILY spr 08/13/19 [Rx] Ipratropium [place] [Atrovent Hfa] 2 puff INHALATION RT-DAILY 05/08/20 [History] Warfarin Sodium [Coumadin] 2.5 mg PO SUTHSA 05/08/20 [History] Warfarin Sodium [Coumadin] 5 mg PO MOTUWEFR 05/08/20 [History] Albuterol Nebulized [Ventolin Nebulized] 2.5 mg INHALATION RT-QID 09/12/20 [History] Atorvastatin [Lipitor] 40 mg PO HS 09/12/20 [History] Furosemide [Lasix] 40 mg PO Q48H 09/12/20 [History] Losartan Potassium 25 mg PO BID 09/12/20 [History] Follow up Appointment(s)/Referral(s): Alvin Mott MD [Primary Care Provider] - 09/18/20 1:30 pm Dom Cristina MD [STAFF PHYSICIAN] - 09/21/20 10:15 am Patient Instructions/Handouts: Bradycardia (DC) Activity/Diet/Wound Care/Special Instructions: heart healthy diet activity is limited till you see your doctor Discharge Disposition: HOME SELF-CARE
== END 2020-09-14 18:00 | disposition home or self-care (01) | DRG 309 ==
LOC: EC 12:15 → 1SOBS 14:02 → OBSVTOIN 09-14 12:19
PROVIDERS: ADMIT Internal Medicine; ATTEND Internal Medicine
DX: R00.1 Bradycardia, unspecified (principal); J98.11 Atelectasis; J96.11 Chronic respiratory failure with hypoxia; F03.90 Unspecified dementia, unspecified severity, without behavioral disturbance, psychotic disturbance, mood disturbance, and anxiety; E66.01 Morbid (severe) obesity due to excess calories; J44.9 Chronic obstructive pulmonary disease, unspecified; F31.9 Bipolar disorder, unspecified; I47.2 Ventricular tachycardia; I25.82 Chronic total occlusion of coronary artery; I49.3 Ventricular premature depolarization; I25.10 Atherosclerotic heart disease of native coronary artery without angina pectoris; E78.5 Hyperlipidemia, unspecified; E86.0 Dehydration; I10 Essential (primary) hypertension; N40.0 Benign prostatic hyperplasia without lower urinary tract symptoms; F41.9 Anxiety disorder, unspecified; Z99.81 Dependence on supplemental oxygen; Z91.19 Patient's noncompliance with other medical treatment and regimen; Z79.01 Long term (current) use of anticoagulants; Z79.899 Other long term (current) drug therapy; Z90.89 Acquired absence of other organs; Z87.891 Personal history of nicotine dependence; Z86.718 Personal history of other venous thrombosis and embolism; Z86.711 Personal history of pulmonary embolism; Z87.440 Personal history of urinary (tract) infections; Z91.5 Personal history of self-harm; Z98.890 Other specified postprocedural states
CPT/HCPCS: 36415; 71046; 80053; 83735; 84443; 84484; 85025; 85610; 85730; 93005; 94640; 94760; 99285

== ENCOUNTER 2020-09-19 20:48 | Observation (INO) | payer MEDICARE ==
--- NOTE | 2020-09-19 21:23 | ED ---
General Adult HPI - General Chief complaint: Shortness of Breath Stated complaint: sob Source: patient, family, RN notes reviewed Mode of arrival: wheelchair Limitations: no limitations - History of Present Illness Initial comments: 75-year-old male with a past medical history of COPD, hypertension presents to the emergency room for a chief complaint of low heart rate. Patient's niece states that he was getting ready for bed when she noticed he was breathing differently. She reports he did this similar type of breathing when he had pneumonia. She went to check his oxygen level and heart rate and noticed his heart rate was in the 40s. She became concerned and brought him to the emergency room. She reports there was some confusion and patient was supposed to have stents placed while he was in the hospital a few days ago but ultimately did not have this performed. Patient does not have any complaint at this time. Patient has no other complaints at this time including chest pain, abdominal pain, nausea or vomiting, headache, or visual changes. - Related Data Home Medications Medication Instructions Recorded Confirmed FLUoxetine HCL [PROzac] 20 mg PO HS 08/10/19 09/12/20 ARIPiprazole [Abilify] 5 mg PO DAILY 08/11/19 09/12/20 Ipratropium [place] [Atrovent Hfa] 2 puff INHALATION RT-DAILY 05/08/20 09/12/20 Warfarin Sodium [Coumadin] 2.5 mg PO SUTHSA 05/08/20 09/12/20 Warfarin Sodium [Coumadin] 5 mg PO MOTUWEFR 05/08/20 09/12/20 Albuterol Nebulized [Ventolin 2.5 mg INHALATION RT-QID 09/12/20 09/12/20 Nebulized] Atorvastatin [Lipitor] 40 mg PO HS 09/12/20 09/12/20 Furosemide [Lasix] 40 mg PO Q48H 09/12/20 09/12/20 Losartan Potassium 25 mg PO BID 09/12/20 09/12/20 Previous Rx's Medication Instructions Recorded Fluticasone Nasal [place] [Flonase 2 spray EA NOSTRIL DAILY spr 08/13/19 Nasal [place]] Allergies Allergy/AdvReac Type Severity Reaction Status Date / Time No Known Allergies Allergy Verified 09/19/20 20:55 Review of Systems ROS Statement: Those systems with pertinent positive or pertinent negative responses have been documented in the HPI. ROS Other: All systems not noted in ROS Statement are negative. Past Medical History Past Medical History: COPD, Hypertension Additional Past Medical History / Comment(s): pt states sexual issue in the past would not go into deals History of Any Multi-Drug Resistant Organisms: None Reported Past Surgical History: Adenoidectomy, Heart Catheterization, Orthopedic Surgery, Prostate Surgery, Tonsillectomy Additional Past Surgical History / Comment(s): left wrist surgery 12 years ago,. cardiac cath- aug 2020. reduction of prostate. Past Anesthesia/Blood Transfusion Reactions: No Reported Reaction Past Psychological History: Anxiety, Bipolar, Depression Smoking Status: Former smoker Past Alcohol Use History: None Reported Past Drug Use History: None Reported - Past Family History Mother Family Medical History: Cancer Father Family Medical History: Cancer General Exam Limitations: no limitations General appearance: alert, in no apparent distress Head exam: Present: atraumatic, normocephalic, normal inspection Eye exam: Present: normal appearance, PERRL, EOMI. Absent: scleral icterus, conjunctival injection, periorbital swelling ENT exam: Present: normal exam, mucous membranes moist Neck exam: Present: normal inspection, full ROM. Absent: tenderness, meningismus, lymphadenopathy Respiratory exam: Present: normal lung sounds bilaterally. Absent: respiratory distress, wheezes, rales, rhonchi, stridor Cardiovascular Exam: Present: bradycardia. Absent: systolic murmur, diastolic murmur, rubs, gallop, clicks GI/Abdominal exam: Present: soft, normal bowel sounds. Absent: distended, tenderness, guarding, rebound, rigid Neurological exam: Present: alert Course Vital Signs 09/19/20 09/19/20 20:49 21:46 Temperature 98.3 F Pulse Rate 43 L Respiratory 26 H 23 Rate Blood Pressure 112/70 O2 Sat by Pulse 98 Oximetry EKG Findings - EKG Comments: EKG Findings:: Normal sinus rhythm with second-degree AV block type I, ventricular rate 84, QRS ratio 84, QTC 441. Compared to previous EKG from 08/2020 Medical Decision Making - Medical Decision Making HPI physical exam as documented. Patient did have heart catheterization about 2 weeks ago showing triple coronary artery disease. Ejection fraction 50-55%. Today patient's heart rate is in the low 40s. Heart monitor says 80s however patient is refusing at a rate of 40 bpm. It appears patient was initially going to have stents placed however patient was ultimately cleared for discharge home as he was feeling much better. Today patient had recurrence of slight shortness of breath and is brought back to the emergency room. CBC and CMP are unremarkable. Troponin is negative. BNP is normal. Patient is on Coumadin, INR 1.6. Chest x-ray shows no acute process. At this time patient will be admitted for cardiology consultation given bradycardia. Blood pressures have remained stable while in the emergency room. - Lab Data Result diagrams: 09/19/20 21:18 09/19/20 21:18 Lab Results 09/19/20 09/19/20 09/19/20 Range/Units 21:18 21:18 21:18 WBC 6.9 (3.8-10.6) k/uL RBC 4.97 (4.30-5.90) m/uL Hgb 15.5 (13.0-17.5) gm/dL Hct 48.1 (39.0-53.0) % MCV 96.7 (80.0-100.0) fL MCH 31.1 (25.0-35.0) pg MCHC 32.2 (31.0-37.0) g/dL RDW 13.9 (11.5-15.5) % Plt Count 191 (150-450) k/uL Neutrophils % 68 % Lymphocytes % 21 % Monocytes % 6 % Eosinophils % 3 % Basophils % 1 % Neutrophils # 4.7 (1.3-7.7) k/uL Lymphocytes # 1.5 (1.0-4.8) k/uL Monocytes # 0.4 (0-1.0) k/uL Eosinophils # 0.2 (0-0.7) k/uL Basophils # 0.1 (0-0.2) k/uL PT 15.5 H (9.0-12.0) sec INR 1.6 H (<1.2) APTT 24.2 (22.0-30.0) sec Sodium 139 (137-145) mmol/L Potassium 4.5 (3.5-5.1) mmol/L Chloride 103 (98-107) mmol/L Carbon Dioxide 29 (22-30) mmol/L Anion Gap 7 mmol/L BUN 20 (9-20) mg/dL Creatinine 1.13 (0.66-1.25) mg/dL Est GFR (CKD-EPI)AfAm 72 (>60 ml/min/1.73 sqM) Est GFR (CKD-EPI)NonAf 63 (>60 ml/min/1.73 sqM) Glucose 111 H (74-99) mg/dL Calcium 9.1 (8.4-10.2) mg/dL Magnesium 2.0 (1.6-2.3) mg/dL Total Bilirubin 0.8 (0.2-1.3) mg/dL AST 28 (17-59) U/L ALT 19 (4-49) U/L Alkaline Phosphatase 87 (38-126) U/L Troponin I (0.000-0.034) ng/mL NT-Pro-B Natriuret Pep pg/mL Total Protein 6.9 (6.3-8.2) g/dL Albumin 3.9 (3.5-5.0) g/dL 09/19/20 09/19/20 Range/Units 21:18 21:18 WBC (3.8-10.6) k/uL RBC (4.30-5.90) m/uL Hgb (13.0-17.5) gm/dL Hct (39.0-53.0) % MCV (80.0-100.0) fL MCH (25.0-35.0) pg MCHC (31.0-37.0) g/dL RDW (11.5-15.5) % Plt Count (150-450) k/uL Neutrophils % % Lymphocytes % % Monocytes % % Eosinophils % % Basophils % % Neutrophils # (1.3-7.7) k/uL Lymphocytes # (1.0-4.8) k/uL Monocytes # (0-1.0) k/uL Eosinophils # (0-0.7) k/uL Basophils # (0-0.2) k/uL PT (9.0-12.0) sec INR (<1.2) APTT (22.0-30.0) sec Sodium (137-145) mmol/L Potassium (3.5-5.1) mmol/L Chloride (98-107) mmol/L Carbon Dioxide (22-30) mmol/L Anion Gap mmol/L BUN (9-20) mg/dL Creatinine (0.66-1.25) mg/dL Est GFR (CKD-EPI)AfAm (>60 ml/min/1.73 sqM) Est GFR (CKD-EPI)NonAf (>60 ml/min/1.73 sqM) Glucose (74-99) mg/dL Calcium (8.4-10.2) mg/dL Magnesium (1.6-2.3) mg/dL Total Bilirubin (0.2-1.3) mg/dL AST (17-59) U/L ALT (4-49) U/L Alkaline Phosphatase (38-126) U/L Troponin I <0.012 (0.000-0.034) ng/mL NT-Pro-B Natriuret Pep 507 pg/mL Total Protein (6.3-8.2) g/dL Albumin (3.5-5.0) g/dL Disposition Clinical Impression: Bradycardia Disposition: ADMITTED IP TO THIS HOSP Is patient prescribed a controlled substance at d/c from ED?: No Referrals: Alvin Mott MD [Primary Care Provider] - 1-2 days Time of Disposition: 22:30
[2020-09-19 21:35] LABS: Basophils # (A) 0.1 k/uL (0-0.2); Basophils % (A) 1 %; Eosinophils # (A) 0.2 k/uL (0-0.7); Eosinophils % (A) 3 %; HCT 48.1 % (39.0-53.0); HGB 15.5 gm/dL (13.0-17.5); Lymphocytes # (A) 1.5 k/uL (1.0-4.8); Lymphocytes % (A) 21 %; MCH 31.1 pg (25.0-35.0); MCHC 32.2 g/dL (31.0-37.0); MCV 96.7 fL (80.0-100.0); Mean Platelet Volume 7.4; Monocytes # (A) 0.4 k/uL (0-1.0); Monocytes % (A) 6 %; Neutrophils # (A) 4.7 k/uL (1.3-7.7); Neutrophils % (A) 68 %; Platelet Count 191 k/uL (150-450); RBC 4.97 m/uL (4.30-5.90); RDW 13.9 % (11.5-15.5); WBC 6.9 k/uL (3.8-10.6)
--- NOTE | 2020-09-19 21:41 | XR ---
EXAMINATION TYPE: XR chest 2V DATE OF EXAM: 09/19/2020 COMPARISON: 09/12/2020 HISTORY: Difficulty breathing TECHNIQUE: 2 views FINDINGS: Heart is normal. Lungs are clear of infiltrate. There is no heart failure. There are chest leads. Bony thorax is intact. IMPRESSION: No active cardiopulmonary disease. Normal heart. No adverse change.
[2020-09-19 21:46] LABS: INR 1.6 (<1.2); Partial Thromboplastin Time 24.2 sec (22.0-30.0); Prothrombin Time 15.5 sec (9.0-12.0)
[2020-09-19 21:49] LABS: Albumin 3.9 g/dL (3.5-5.0); Calcium 9.1 mg/dL (8.4-10.2); Potassium 4.5 mmol/L (3.5-5.1); Total Bilirubin 0.8 mg/dL (0.2-1.3); Total Protein 6.9 g/dL (6.3-8.2)
[2020-09-19] MEDS ORDERED: NALOXONE 0.4 MG/ML 1 ML VIAL IV PRN (22:26)
[2020-09-20] MEDS: SODIUM CHLORIDE 0.9% 1,000 ML IV SCH ×2 (00:48→16:48)
--- NOTE | 2020-09-20 11:27 | P.CRDCN ---
History of Present Illness Consult date: 09/20/20 Reason for Consult (text): Bradycardia Chief complaint: Bradycardia History of present illness: HISTORY OF PRESENT ILLNESS AND PLAN: This is a 75-year-old male with history of obesity, smoking 2 packs per day 40+ years, COPD, anxiety/depression, bipolar disorder, BPH with prostatectomy, PE, DVT, PVCs, NSVT, hypertension, hyperlipidemia, pneumonia, mild carotid ICA stenosis and CAD with multi-vessel disease by cadiac cath in 09/03/[address] Strickland. Pt follows with Dr. Strickland in office. Pt recently had cardiac cath and was advised to have CABG but patient/family refused surgical intervention. Pt currently receiving medical management for CAD. Patient states he had an episode of difficulty breathing last evening that was similar to when he had pneumonia. Patient currently lying in bed resting with no acute distress. Patient may be poor historian. Patient has no current complaints of chest pain, chest pressure, shortness of breath or palpitations. Pt does complain of productive chronic cough. Patient sinus rhythm/sinus arrhythmia with PACs and PVCs. NO heart block. No current beta tremayne use. ER reports the niece took patient's heart rate at home and it was in the 40s. Troponins negative 1. Vital signs stable. 98% on 2 L. Afebrile. Patient does state he has an occasional productive cough with known smoking history/COPD. Patient is anti- coagulated with Coumadin for history of PE/DVT, most recent INR 1.6. No current smoking. No DM. SIGNIFICANT PAST MEDICAL HISTORY: Obesity, smoking 2 packs per day 40+ years, COPD, anxiety/depression, bipolar disorder, BPH with prostatectomy, PE, DVT, PVCs, NSVT, hypertension, hyperlipidemia, pneumonia, mild carotid ICA stenosis and CAD with multi-vessel disease by cadiac cath in 09/03/[address] Strickland. PAST SURGICAL HISTORY: See list. EKG = SR, PAC's and PVC's, HR 72 Troponins negative x 1 SIGNIFICANT LABORATORY VALUES: TSH 0.490, INR 1.6. Chest x-ray 09/19/20 = No acute process Most recent echo 01/22/2020 = EF 50-55%, Midl MR. Mild TR. Most recent cardiac cath 09/03/2020 = severe multivessel CAD (80% LM. 80-90% LAD, Circ 70%, RCA total occlusion). Pt currently refusing surgical intervention. Most recent carotid ultrasound 09/03/20 = mild ICA stenosis bilaterally, antegrade vertebral flow. REVIEW OF SYSTEMS: CONSTITUTIONAL: Denies fever. Denies chills. EYES: Denies blurred vision. Denies blurred vision or vision changes. Denies eye pain. EARS, NOSE, MOUTH & THROAT: Denies headache. Denies sore throat. Denies ear pain Denies hemoptysis. CARDIOVASCULAR: Denies chest pain. Complains of shortness of breath. Denies orthopnea. Denies PND. Denies palpitations. RESPIRATORY: Complains of cough with shortness of breath. GASTROINTESTINAL: Denies abdominal pain or distention. Denies diarrhea. Denies constipation. Denies nausea. Denies vomiting. MUSCULOSKELETAL: Denies myalgias. INTEGUMENTARY: Denies pruitis. Denies rash. ENDOCRINE: Denies fatigue. Denies weight change. Denies polydipsia. Denies polyurina Denies heat/cold intolerance. GENITOURINARY: Denies burning, hematuria or urgency with micturation. HEMATOLOGIC: Denies history of anemia. Denies bleeding. NEUROLOGIC: Denies numbness. Denies tingling. Denies weakness. PSYCHIATRIC: Denies anxiety. Denies depression. PHYSICAL EXAM: GENERAL: Obese. Well developed, in no acute distress. HEENT: Head is atraumatic, normocephalic. Pupils are equal, round. Extra ocular movements intact. Mucous membranes moist. Neck supple. No JVD. No carotid bruit. No thyromegaly. LUNGS: Diminished to auscultation. No wheezes, rales or rhonchi. No chest wall tenderness on palpation or with deep breathing. HEART: Regular rate and rhythm, no rubs or gallops. S1 and S2 heard. No murmur. ABDOMEN: Abdominal exam, WNL. Bowel sounds x4 quads. Soft, non-tender, without masses, organomegaly, or abdominal aorta enlargement. EXTREMITIES/VASCULAR: Extremities have easily palpable radial, femoral, dorsalis pedis and posterior tibial pulses. No cyanosis, calf tenderness. No BLE edema. NEUROLOGIC: Patient is awake, alert and oriented x3. No focal neurologic abnormalities. FINAL IMPRESSION: 1. Possible SSS - asymptomatic 2. CAD with severe multi-vessel disease, medical mgt. 3. Hyperlipidemia 4. Hypertension 5. COPD PLAN: Will check TSH/Free T4. Will increase pt activity level and continue to monitor on telemetry for the next 24 hours. Continues same medical/medication regime. Hearty healthy diet. Nurse Practitioner note has been reviewed by the Physician. Signing provider agrees with the documented findings, assessment and plan of care. Past Medical History Past Medical History: Asthma, COPD, Hyperlipidemia, Hypertension Additional Past Medical History / Comment(s): pt states sexual issue in the past would not go into deals. triple vessel disease History of Any Multi-Drug Resistant Organisms: None Reported Past Surgical History: Adenoidectomy, Heart Catheterization, Orthopedic Surgery, Prostate Surgery, Tonsillectomy Additional Past Surgical History / Comment(s): left wrist surgery 12 years ago,. cardiac cath- aug 2020. reduction of prostate. Past Anesthesia/Blood Transfusion Reactions: No Reported Reaction Past Psychological History: Anxiety, Bipolar, Depression Additional Psychological History / Comment(s): Patient caregiver states that symptoms have been worse since incarceration in June 2019, previous suicide attempt by cutting left wrist "years ago", per patient. no vocalization of any feelings this way. Smoking Status: Former smoker Past Alcohol Use History: None Reported Additional Past Alcohol Use History / Comment(s): pt states he used to drink daily but quit Past Drug Use History: None Reported - Past Family History Mother Family Medical History: Cancer Father Family Medical History: Cancer Medications and Allergies Home Medications Medication Instructions Recorded Confirmed Type ARIPiprazole [Abilify] 5 mg PO DAILY 08/11/19 09/19/20 History Fluticasone Nasal [place] [Flonase 2 spray EA NOSTRIL DAILY spr 08/13/19 09/19/20 Rx Nasal [place]] Ipratropium [place] [Atrovent Hfa] 2 puff INHALATION RT-DAILY 05/08/20 09/19/20 History Warfarin Sodium [Coumadin] 2.5 mg PO SUTHSA@199905/08/20 09/19/20 History Warfarin Sodium [Coumadin] 5 mg PO MOTUWEFR@199905/08/20 09/19/20 History Albuterol Nebulized [Ventolin 2.5 mg INHALATION RT-QID 09/12/20 09/19/20 History Nebulized] Atorvastatin [Lipitor] 40 mg PO HS 09/12/20 09/19/20 History Furosemide [Lasix] 40 mg PO Q48H 09/12/20 09/19/20 History Losartan Potassium 25 mg PO BID 09/12/20 09/19/20 History Escitalopram [Lexapro] See Taper PO DAILY 09/19/20 09/19/20 History Allergies Allergy/AdvReac Type Severity Reaction Status Date / Time No Known Allergies Allergy Verified 09/19/20 22:36 Physical Exam Vitals: Vital Signs Temp Pulse Pulse Resp BP BP Pulse Ox 09/20/20 08:00 97.6 F 58 L 16 129/75 99 09/20/20 04:00 97.4 F L 63 17 118/61 96 09/20/20 00:00 97.9 F 45 L 19 127/60 96 09/19/20 23:13 49 L 18 120/77 98 09/19/20 22:53 97.9 F 45 L 18 127/60 96 09/19/20 21:46 23 09/19/20 20:49 98.3 F 43 L 26 H 112/70 98 Intake and Output 09/19/20 09/20/20 09/20/20 22:59 06:59 14:59 Other: Voiding Method Diaper # Voids 1 Weight 113.398 kg 116.3 kg Results 09/19/20 21:18 09/19/20 21:18 Cardiac Enzymes 09/19/20 09/19/20 Range/Units 21:18 21:18 AST 28 (17-59) U/L Troponin I <0.012 (0.000-0.034) ng/mL Coagulation 09/19/20 Range/Units 21:18 PT 15.5 H (9.0-12.0) sec APTT 24.2 (22.0-30.0) sec CBC 09/19/20 Range/Units 21:18 WBC 6.9 (3.8-10.6) k/uL RBC 4.97 (4.30-5.90) m/uL Hgb 15.5 (13.0-17.5) gm/dL Hct 48.1 (39.0-53.0) % Plt Count 191 (150-450) k/uL Comprehensive Metabolic Panel 09/19/20 Range/Units 21:18 Sodium 139 (137-145) mmol/L Potassium 4.5 (3.5-5.1) mmol/L Chloride 103 (98-107) mmol/L Carbon Dioxide 29 (22-30) mmol/L BUN 20 (9-20) mg/dL Creatinine 1.13 (0.66-1.25) mg/dL Glucose 111 H (74-99) mg/dL Calcium 9.1 (8.4-10.2) mg/dL AST 28 (17-59) U/L ALT 19 (4-49) U/L Alkaline Phosphatase 87 (38-126) U/L Total Protein 6.9 (6.3-8.2) g/dL Albumin 3.9 (3.5-5.0) g/dL Current Medications Generic Name Dose Route Start Last Admin Trade Name Freq PRN Reason Stop Dose Admin Sodium Chloride 1,000 mls @ 50 mls/hr 09/19/20 22:30 09/20/20 00:48 Saline 0.9% IV Not Given .Q20H ALIREZA Naloxone HCl 0.2 mg 09/19/20 22:26 Naloxone 0.4 Mg/Ml 1 Ml Vial IV Q2M PRN Opioid Reversal Intake and Output 09/19/20 09/20/20 09/20/20 22:59 06:59 14:59 Other: Voiding Method Diaper # Voids 1 Weight 113.398 kg 116.3 kg 09/19/20 21:18 09/19/20 21:18 - EKG Interpretation EKG shows: sinus rhythm EKG Interpretations (text) SR, PAC's and PVC's
[2020-09-20] MEDS ORDERED: IPRATROPIUM-ALBUTEROL 3 ML NEB INHALATION PRN (12:15)
[2020-09-20 12:42] LABS: INR 1.7 (<1.2); Prothrombin Time 16.3 sec (9.0-12.0)
--- NOTE | 2020-09-20 13:07 | P.HPIM ---
History of Present Illness 75-year-old male with a past medical history of COPD, hypertension presents to the emergency room for a chief complaint of low heart rate. Patient's niece states that he was getting ready for bed when she noticed he was breathing d ifferently. She reports he did this similar type of breathing when he had pneumonia. She went to check his oxygen level and heart rate and noticed his heart rate was in the 40s. She became concerned and brought him to the emergency room. She reports there was some confusion and patient was supposed to have stents placed while he was in the hospital a few days ago but ultimately did not have this performed. Patient does not have any complaint at this time. Patient has no other complaints at this time including chest pain, abdominal pain, nausea or vomiting, headache, or visual changes. Patient has a extensive cardiac history patient had a cardiac catheterization recently earlier this month which showed triple-vessel disease. Patient is also on Lasix. But had a normal echocardiac name in the past patient has history of DVT for which patient is on Coumadin and patient was evaluated for coronary artery bypass grafting patient family and patient declined the procedure. Patient is found to be in sinus bradycardia although denied any symptoms at this time. Patient is not on any beta tremayne. Patient has mild acute renal failure. Review of Systems REVIEW OF SYSTEMS: CONSTITUTIONAL: No fever, no malaise, no fatigue. HEENT: No recent visual problems or hearing problems. Denied any sore throat. CARDIOVASCULAR: No chest pain, orthopnea, PND, no palpitations, no syncope. PULMONARY: No shortness of breath, no cough, no hemoptysis. GASTROINTESTINAL: No diarrhea, no nausea, no vomiting, no abdominal pain. NEUROLOGICAL: No headaches, no weakness, no numbness. HEMATOLOGICAL: Denies any bleeding or petechiae. GENITOURINARY: Denies any burning micturition, frequency, or urgency. MUSCULOSKELETAL/RHEUMATOLOGICAL: Denies any joint pain, swelling, or any muscle pain. ENDOCRINE: Denies any polyuria or polydipsia. The rest of the 14-point review of systems is negative. Past Medical History Past Medical History: Asthma, COPD, Hyperlipidemia, Hypertension Additional Past Medical History / Comment(s): pt states sexual issue in the past would not go into deals. triple vessel disease History of Any Multi-Drug Resistant Organisms: None Reported Past Surgical History: Adenoidectomy, Heart Catheterization, Orthopedic Surgery, Prostate Surgery, Tonsillectomy Additional Past Surgical History / Comment(s): left wrist surgery 12 years ago,. cardiac cath- aug 2020. reduction of prostate. Past Anesthesia/Blood Transfusion Reactions: No Reported Reaction Past Psychological History: Anxiety, Bipolar, Depression Additional Psychological History / Comment(s): Patient caregiver states that symptoms have been worse since incarceration in June 2019, previous suicide attempt by cutting left wrist "years ago", per patient. no vocalization of any feelings this way. Smoking Status: Former smoker Past Alcohol Use History: None Reported Additional Past Alcohol Use History / Comment(s): pt states he used to drink daily but quit Past Drug Use History: None Reported - Past Family History Mother Family Medical History: Cancer Father Family Medical History: Cancer Medications and Allergies Home Medications Medication Instructions Recorded Confirmed Type ARIPiprazole [Abilify] 5 mg PO DAILY 08/11/19 09/19/20 History Fluticasone Nasal [place] [Flonase 2 spray EA NOSTRIL DAILY spr 08/13/19 09/19/20 Rx Nasal [place]] Ipratropium [place] [Atrovent Hfa] 2 puff INHALATION RT-DAILY 05/08/20 09/19/20 History Warfarin Sodium [Coumadin] 2.5 mg PO SUTHSA@199905/08/20 09/19/20 History Warfarin Sodium [Coumadin] 5 mg PO MOTUWEFR@199905/08/20 09/19/20 History Albuterol Nebulized [Ventolin 2.5 mg INHALATION RT-QID 09/12/20 09/19/20 History Nebulized] Atorvastatin [Lipitor] 40 mg PO HS 09/12/20 09/19/20 History Furosemide [Lasix] 40 mg PO Q48H 09/12/20 09/19/20 History Losartan Potassium 25 mg PO BID 09/12/20 09/19/20 History Escitalopram [Lexapro] See Taper PO DAILY 09/19/20 09/19/20 History Allergies Allergy/AdvReac Type Severity Reaction Status Date / Time No Known Allergies Allergy Verified 09/19/20 22:36 Physical Exam Vitals: Vital Signs Temp Pulse Pulse Resp BP BP Pulse Ox 09/20/20 12:00 97.8 F 67 18 112/70 97 09/20/20 11:47 16 10/25/20 08:00 97.6 F 58 L 16 129/75 99 09/20/20 04:00 97.4 F L 63 17 118/61 96 09/20/20 00:00 97.9 F 45 L 19 127/60 96 09/19/20 23:13 49 L 18 120/77 98 09/19/20 22:53 97.9 F 45 L 18 127/60 96 09/19/20 21:46 23 09/19/20 20:49 98.3 F 43 L 26 H 112/70 98 Intake and Output 09/19/20 09/20/20 09/20/20 22:59 06:59 14:59 Other: Voiding Method Diaper # Voids 1 Weight 113.398 kg 116.3 kg PHYSICAL EXAMINATION: GENERAL: The patient is alert and oriented x3, not in any acute distress. Obese HEENT: Pupils are round and equally reacting to light. EOMI. No scleral icterus. No conjunctival pallor. Normocephalic, atraumatic. No pharyngeal erythema. No thyromegaly. CARDIOVASCULAR: S1 and S2 present. No murmurs, rubs, or gallops. PULMONARY: Chest is clear to auscultation, no wheezing or crackles. ABDOMEN: Soft, nontender, nondistended, normoactive bowel sounds. No palpable organomegaly. MUSCULOSKELETAL: No joint swelling or deformity. EXTREMITIES: No cyanosis, clubbing, or pedal edema. NEUROLOGICAL: Gross neurological examination did not reveal any focal deficits. SKIN: No rashes. Results CBC & Chem 7: 09/19/20 21:18 09/19/20 21:18 Labs: Abnormal Lab Results - Last 24 Hours (Table) 09/19/20 09/19/20 09/20/20 Range/Units 21:18 21:18 12:26 PT 15.5 H 16.3 H (9.0-12.0) sec INR 1.6 H 1.7 H (<1.2) Glucose 111 H (74-99) mg/dL Thrombosis Risk Factor Assmnt - Choose All That Apply Each Factor Represents 1 point: Abnormal pulmonary function (COPD) Other Risk Factors: Yes Each Risk Factor Represents 3 Points: Age 75 years or older Other congenital or acquired thrombophilia - If yes, enter type in comment: No Thrombosis Risk Factor Assessment Total Risk Factor Score: 4 Thrombosis Risk Factor Assessment Level: Moderate Risk Assessment and Plan Plan: -Sinus bradycardia mostly based of asymptomatic, patient will be monitored no further intervention as per cardiology -Coronary artery disease with severe multivessel a triple-vessel disease and medical management and the patient declined to undergo any bypass grafting in the past next and-mild acute renal failure expected to improve with holding off on diuretics patient takes Lasix once in 24 hours -Hyperlipidemia -Hypertension -History of DVT on Coumadin subtherapeutic INR patient Coumadin dosing increased to 5 mg repeat INR tomorrow -COPD with mild acute exacerbation patient was started on inhalational steroids and the albuterol ipratropium inhalational.
[2020-09-20] MEDS: ALBUTEROL NEBULIZED 2.5 MG/3 ML INHALATION SCH ×2 (16:42→20:02)
[2020-09-20] MEDS ORDERED: WARFARIN 5 MG TAB PO ONE (20:00)
[2020-09-20] MEDS: BUDESONIDE 0.5 MG/2 ML NEBU INHALATION SCH (20:02)
[2020-09-20] MEDS: LOSARTAN 25 MG TAB PO SCH (20:11)
[2020-09-20 20:54] VITALS: RESP 18
[2020-09-20] MEDS ORDERED: ATORVASTATIN 40 MG TAB PO SCH (21:00)
[2020-09-21] MEDS ORDERED: IPRATROPIUM 0.5 MG/2.5 ML NEBU INHALATION SCH (08:00)
[2020-09-21] MEDS: BUDESONIDE 0.5 MG/2 ML NEBU INHALATION SCH (08:16)
[2020-09-21] MEDS: IPRATROPIUM-ALBUTEROL 3 ML NEB INHALATION SCH ×2 (08:17→12:38)
[2020-09-21 08:37] LABS: African American GFR (CKD) >90 (>60 ml/min/1.73 sqM); Anion Gap 6 mmol/L; Blood Urea Nitrogen 20 mg/dL (9-20); Calcium 8.5 mg/dL (8.4-10.2); Carbon Dioxide 26 mmol/L (22-30); Chloride 104 mmol/L (98-107); Glucose 108 mg/dL (74-99); Non-African American GFR(CKD) 80 (>60 ml/min/1.73 sqM); Potassium 4.4 mmol/L (3.5-5.1); Sodium 136 mmol/L (137-145)
[2020-09-21 08:38] LABS: INR 1.4 (<1.2); Prothrombin Time 13.7 sec (9.0-12.0)
[2020-09-21] MEDS ORDERED: ARIPiprazole 5 MG TAB PO SCH (09:00)
[2020-09-21] MEDS ORDERED: ESCITALOPRAM 5 MG TAB PO SCH (09:00)
[2020-09-21] MEDS ORDERED: FLUTICASONE 50MCG/SPRAY NASAL 16GM EA NOSTRIL SCH (09:00)
[2020-09-21] MEDS: LOSARTAN 25 MG TAB PO SCH (10:59)
[2020-09-21 11:11] VITALS: BP 105/57; TEMP 97.6
--- NOTE | 2020-09-21 12:15 | P.DS ---
Providers Date of admission: 09/19/20 22:37 Attending physician: Vanessa Moore Consults: 09/19/20 22:27 Consult Physician Routine Consulting Provider: [facility] Consult Reason/Comments: bradycardia Do you want consulting provider notified?: Yes Primary care physician: Alvin Mott [facility] Course: 75-year-old male with a past medical history of COPD, hypertension presents to the emergency room for a chief complaint of low heart rate. Patient's niece states that he was getting ready for bed when she noticed he was breathing differently. She reports he did this similar type of breathing when he had pneumonia. She went to check his oxygen level and heart rate and noticed his heart rate was in the 40s. She became concerned and brought him to the emergency room. She reports there was some confusion and patient was supposed to have stents placed while he was in the hospital a few days ago but ultimately did not have this performed. Patient does not have any complaint at this time. Patient has no other complaints at this time including chest pain, abdominal pain, nausea or vomiting, headache, or visual changes. Patient has a extensive cardiac history patient had a cardiac catheterization recently earlier this month which showed triple-vessel disease. Patient is also on Lasix. But had a normal echocardiac name in the past patient has history of DVT for which patient is on Coumadin and patient was evaluated for coronary artery bypass grafting patient family and patient declined the procedure. Patient is found to be in sinus bradycardia although denied any symptoms at this time. Patient is not on any beta tremayne. Patient has mild acute renal failure. 09/21/2020 Patient doesn't have any significant overnight events patient is still complaining of generalized weakness. Patient was evaluated by physical therapy and occupational therapy recommending home with home care which will be arranged for the patient. Patient blood pressure is still low normal dose of losartan and required a daily patient will be discharged today after reevaluation by physical therapy. PHYSICAL EXAMINATION: GENERAL: The patient is alert and oriented x3, not in any acute distress. Obese HEENT: Pupils are round and equally reacting to light. EOMI. No scleral icterus. No conjunctival pallor. Normocephalic, atraumatic. No pharyngeal erythema. No thyromegaly. CARDIOVASCULAR: S1 and S2 present. No murmurs, rubs, or gallops. PULMONARY: Mild wheezing bilaterally. ABDOMEN: Soft, nontender, nondistended, normoactive bowel sounds. No palpable organomegaly. MUSCULOSKELETAL: No joint swelling or deformity. EXTREMITIES: No cyanosis, clubbing, or pedal edema. NEUROLOGICAL: Gross neurological examination did not reveal any focal deficits. SKIN: No rashes. Assessment and Plan Plan: -Sinus bradycardia mostly based of asymptomatic, patient was evaluated by cardiology patient is otherwise clinically doing well still complaining of generalized weakness may need some physical therapy at home. Patient doesn't have any significant bradycardic episodes. -Generalized weakness will require physical therapy at home -Coronary artery disease with severe multivessel a triple-vessel disease and medical management and the patient declined to undergo any bypass grafting in the past n -mild acute renal failure improved with holding off on diuretics patient may not need any diuretics -Hyperlipidemia -Hypertension -History of DVT on Coumadin subtherapeutic INR increase the Coumadin to 5 mg daily and patient will need an INR check in about 3-4 days -COPD with mild acute exacerbation patient was started on inhalational steroids and the albuterol ipratropium inhalational. Plan - Discharge Summary Discharge Rx Participant: No New Discharge Prescriptions: New Warfarin [Coumadin] 5 mg PO DAILY #30 tab Losartan [Cozaar] 25 mg PO DAILY tab Budesonide-Formot 160-4.5 Mcg [Symbicort 160-4.5 Mcg Inhaler] 2 puff INHALATION BID #1 inhaler Continue ARIPiprazole [Abilify] 5 mg PO DAILY Fluticasone Nasal [place] [Flonase Nasal [place]] 2 spray EA NOSTRIL DAILY spr Ipratropium [place] [Atrovent Hfa] 2 puff INHALATION RT-DAILY Atorvastatin [Lipitor] 40 mg PO HS Albuterol Nebulized [Ventolin Nebulized] 2.5 mg INHALATION RT-QID Escitalopram [Lexapro] See Taper PO DAILY Discontinued Warfarin Sodium [Coumadin] 2.5 mg PO SUTHSA@1999 Warfarin Sodium [Coumadin] 5 mg PO MOTUWEFR@1999 Losartan Potassium 25 mg PO BID Furosemide [Lasix] 40 mg PO Q48H Discharge Medication List ARIPiprazole [Abilify] 5 mg PO DAILY 08/11/19 [History] Fluticasone Nasal [place] [Flonase Nasal [place]] 2 spray EA NOSTRIL DAILY spr 08/13/19 [Rx] Ipratropium [place] [Atrovent Hfa] 2 puff INHALATION RT-DAILY 05/08/20 [History] Albuterol Nebulized [Ventolin Nebulized] 2.5 mg INHALATION RT-QID 09/12/20 [History] Atorvastatin [Lipitor] 40 mg PO HS 09/12/20 [History] Escitalopram [Lexapro] See Taper PO DAILY 09/19/20 [History] Budesonide-Formot 160-4.5 Mcg [Symbicort 160-4.5 Mcg Inhaler] 2 puff INHALATION BID #1 inhaler 09/21/20 [Rx] Losartan [Cozaar] 25 mg PO DAILY tab 09/21/20 [Rx] Warfarin [Coumadin] 5 mg PO DAILY #30 tab 09/21/20 [Rx] Follow up Appointment(s)/Referral(s): Alvin Mott MD [Primary Care Provider] - 09/25/20 1:30 pm Dom Cristina MD [STAFF PHYSICIAN] - 09/24/20 10:00 am Ambulatory/Diagnostic Orders: Prothrombin Time INR [LAB.AMB] Time Frame: 3 Days, Location: None Selected Patient Instructions/Handouts: Bradycardia (DC) Discharge Disposition: HOME WITH HOME HEALTH SERVICES
[2020-09-21] MEDS ORDERED: INFLUENZA VACCINE (6 MOS+) 60 MCG/0.5 ML SYRINGE IM ONE (12:53)
[2020-09-21 13:11] VITALS: PULSE 64
--- NOTE | 2020-09-21 13:14 | P.PN ---
Subjective This is a pleasant 75-year-old male past medical history significant for coronary artery disease, COPD, hypertension, dyslipidemia and chronic nicotine dependence. He follows in the office with Dr. Cristina. He is seen and examined sitting up in bed in no acute distress. He has no symptoms of chest pain, shortness of breath, dizziness or palpitations. Telemetry tracings reviewed. He is maintaining sinus mechanism with no significant bradycardia arrhythmias noted. Blood pressure 105/57 heart rate 68 afebrile maintaining oxygen saturation on nasal cannula. Laboratory data reviewed, sodium 136, potassium 4.4, creatinine 0.92. Currently maintained on Coumadin secondary to history of PE DVT, losartan 25 mg daily and atorvastatin 40 mg at bedtime. GENERAL: Well-appearing, well-nourished and in no acute distress. NECK: Supple without JVD or thyromegaly. LUNGS: Breath sounds clear to auscultation bilaterally. Respiration equal and unlabored. No wheezes, rales or rhonchi. HEART: Regular rate and rhythm without murmurs, rubs or gallops. S1 and S2 heard. EXTREMITIES: Normal range of motion, no edema. No clubbing or cyanosis. Peripheral pulses intact. ASSESSMENT Sinus bradycardia, asymptomatic Coronary artery disease Hypertension Dyslipidemia COPD PLAN There's been no further episodes of bradycardia. Stable for discharge from a cardiac perspective. Recommend outpatient event monitoring, this can be taken care of in the office with Dr. Crisitna. Nurse Practitioner note has been reviewed, I agree with a documented findings and plan of care. Patient was seen and examined. Objective - Vital Signs Vital signs: Vital Signs Temp 97.6 F 09/21/20 08:50 Pulse 60 09/21/20 12:38 Resp 18 09/21/20 08:50 BP 105/57 09/21/20 08:50 Pulse Ox 96 09/21/20 08:50 Intake & Output 09/20/20 09/21/20 09/21/20 18:59 06:59 18:59 Intake Total 477 640 125 Output Total 900 Balance 477 -260 125 Weight 117.4 kg Intake: Oral 477 640 125 Output: Urine 900 Other: Voiding Method Toilet Toilet Diaper Diaper - Labs CBC & Chem 7: 09/19/20 21:18 09/21/20 07:41 Labs: Abnormal Lab Results - Last 24 Hours (Table) 09/21/20 09/21/20 Range/Units 07:41 07:41 PT 13.7 H (9.0-12.0) sec INR 1.4 H (<1.2) Sodium 136 L (137-145) mmol/L Glucose 108 H (74-99) mg/dL
[2020-09-21] MEDS ORDERED: WARFARIN 3 MG TAB PO ONE (18:00)
[2020-09-22] MEDS ORDERED: LOSARTAN 25 MG TAB PO SCH (09:00)
== END 2020-09-21 15:12 | disposition home health service (06) ==
LOC: EC 20:48 → 3SCARD 22:37
PROVIDERS: ADMIT Hospitalist; ATTEND Hospitalist
DX: R00.1 Bradycardia, unspecified (principal); I25.10 Atherosclerotic heart disease of native coronary artery without angina pectoris; I10 Essential (primary) hypertension; I44.1 Atrioventricular block, second degree; N17.9 Acute kidney failure, unspecified; J44.9 Chronic obstructive pulmonary disease, unspecified; E78.5 Hyperlipidemia, unspecified; I49.3 Ventricular premature depolarization; F41.9 Anxiety disorder, unspecified; F31.9 Bipolar disorder, unspecified; I25.82 Chronic total occlusion of coronary artery; I47.1 Supraventricular tachycardia; E66.9 Obesity, unspecified; Z68.34 Body mass index [BMI] 34.0-34.9, adult; Z23 Encounter for immunization; Z86.718 Personal history of other venous thrombosis and embolism; Z87.01 Personal history of pneumonia (recurrent); Z87.891 Personal history of nicotine dependence; Z80.9 Family history of malignant neoplasm, unspecified; Z91.5 Personal history of self-harm; Z90.79 Acquired absence of other genital organ(s); Z86.711 Personal history of pulmonary embolism; N40.0 Benign prostatic hyperplasia without lower urinary tract symptoms; Z98.890 Other specified postprocedural states; Z79.01 Long term (current) use of anticoagulants; Z79.899 Other long term (current) drug therapy
CPT/HCPCS: 99285; 36415; 94640 ×3; 93005; 97161; 97165; 83880; 80053; 80048; 84443; 83735; 84484; 85025; 85610 ×3; 85730; 71046; 90686; G0378 ×3; G0008

== ENCOUNTER 2020-09-27 15:42 | Observation (INO) | payer MEDICARE ==
[2020-09-27 16:13] LABS: Basophils # (A) 0.1 k/uL (0-0.2); Basophils % (A) 1 %; Eosinophils # (A) 0.2 k/uL (0-0.7); Eosinophils % (A) 2 %; HCT 46.3 % (39.0-53.0); HGB 15.1 gm/dL (13.0-17.5); Lymphocytes # (A) 1.3 k/uL (1.0-4.8); Lymphocytes % (A) 20 %; MCH 31.6 pg (25.0-35.0); MCHC 32.5 g/dL (31.0-37.0); MCV 96.9 fL (80.0-100.0); Mean Platelet Volume 7.2; Monocytes # (A) 0.4 k/uL (0-1.0); Monocytes % (A) 5 %; Neutrophils # (A) 4.5 k/uL (1.3-7.7); Neutrophils % (A) 70 %; Platelet Count 172 k/uL (150-450); RBC 4.77 m/uL (4.30-5.90); RDW 13.9 % (11.5-15.5); WBC 6.4 k/uL (3.8-10.6)
--- NOTE | 2020-09-27 16:28 | ED ---
General Adult HPI - General Chief complaint: Arrhythmia/Palpitations Stated complaint: Lt side pain Time Seen by Provider: 09/27/20 15:51 Source: patient, RN notes reviewed, old records reviewed Mode of arrival: wheelchair Limitations: no limitations - History of Present Illness Initial comments: 75-year-old male presenting for evaluation of low heart rate. Patient has history of bradycardia. He was recently admitted to the hospital and was told that he would possibly require coronary artery bypass graft. Patient had declined this surgical intervention and shows medical management. He is presenting today for low heart rate which was picked up on an outpatient cardiac cath lab manager. Patient states that this morning he had developed some lower abdominal pain which was transient, currently not present. No chest pain. No dyspnea. No fever. Patient is currently on lisinopril for blood pressure and Coumadin. No reported beta blockers or calcium channel blockers. - Related Data Home Medications Medication Instructions Recorded Confirmed ARIPiprazole [Abilify] 5 mg PO DAILY 08/11/19 09/19/20 Ipratropium [place] [Atrovent Hfa] 2 puff INHALATION RT-DAILY 05/08/20 09/19/20 Albuterol Nebulized [Ventolin 2.5 mg INHALATION RT-QID 09/12/20 09/19/20 Nebulized] Atorvastatin [Lipitor] 40 mg PO HS 09/12/20 09/19/20 Escitalopram [Lexapro] See Taper PO DAILY 09/19/20 09/19/20 Previous Rx's Medication Instructions Recorded Fluticasone Nasal [place] [Flonase 2 spray EA NOSTRIL DAILY spr 08/13/19 Nasal [place]] Budesonide-Formot 160-4.5 Mcg 2 puff INHALATION BID #1 inhaler 09/21/20 [Symbicort 160-4.5 Mcg Inhaler] Losartan [Cozaar] 25 mg PO DAILY tab 09/21/20 Warfarin [Coumadin] 5 mg PO DAILY #30 tab 09/21/20 Allergies Allergy/AdvReac Type Severity Reaction Status Date / Time No Known Allergies Allergy Verified 09/27/20 15:50 Review of Systems ROS Statement: Those systems with pertinent positive or pertinent negative responses have been documented in the HPI. ROS Other: All systems not noted in ROS Statement are negative. Past Medical History Past Medical History: Asthma, COPD, Hyperlipidemia, Hypertension Additional Past Medical History / Comment(s): pt states sexual issue in the past would not go into deals. triple vessel disease History of Any Multi-Drug Resistant Organisms: None Reported Past Surgical History: Adenoidectomy, Heart Catheterization, Orthopedic Surgery, Prostate Surgery, Tonsillectomy Additional Past Surgical History / Comment(s): left wrist surgery 12 years ago,. cardiac cath- aug 2020. reduction of prostate. Past Anesthesia/Blood Transfusion Reactions: No Reported Reaction Past Psychological History: Anxiety, Bipolar, Depression Smoking Status: Former smoker Past Alcohol Use History: None Reported Past Drug Use History: None Reported - Past Family History Mother Family Medical History: Cancer Father Family Medical History: Cancer General Exam Limitations: no limitations General appearance: alert, in no apparent distress Head exam: Present: atraumatic, normocephalic Eye exam: Present: normal appearance, PERRL ENT exam: Present: normal exam Neck exam: Present: normal inspection. Absent: tenderness, meningismus Respiratory exam: Present: normal lung sounds bilaterally. Absent: respiratory distress Cardiovascular Exam: Present: bradycardia, irregular rhythm GI/Abdominal exam: Present: soft. Absent: distended, tenderness, guarding, rebound Extremities exam: Present: normal inspection, normal capillary refill. Absent: pedal edema Neurological exam: Present: alert, oriented X3, CN II-XII intact. Absent: motor sensory deficit Course Vital Signs 09/27/20 09/27/20 09/27/20 15:43 16:07 16:12 Temperature 97.9 F Pulse Rate 44 L 66 Pulse Rate [ 65 Timers Inspector ] Respiratory 16 16 Rate Blood Pressure 130/69 120/78 O2 Sat by Pulse 98 95 Oximetry EKG Findings - EKG Comments: EKG Findings:: EKG: Sinus rhythm with frequent PVC rate of 65, TN interval 186, QRS duration 88, QTC 427, actual rate of 42. Medical Decision Making - Medical Decision Making 75-year-old male recent admission for coronary artery disease, severe triple vessel disease presenting for evaluation of low heart rates. Patient had been called by the monitoring company with critical low heart rate. No active chest pain or dyspnea. EKG showing sinus mechanism recurrent PVC, perfusing heart rhythm in the 40s. Stable blood pressure. No beta blockers or calcium channel blockers. Workup reveals normal CBC, normal CMP, negative troponin, chest x-ray showing persistent cardiomegaly with no acute findings. Patient will be kept in observation for telemetry, cardiology consultation. Discussed with Dr. Max who will admit. - Lab Data Result diagrams: 09/27/20 16:04 09/27/20 16:04 Lab Results 09/27/20 09/27/20 09/27/20 Range/Units 16:04 16:04 16:04 WBC 6.4 (3.8-10.6) k/uL RBC 4.77 (4.30-5.90) m/uL Hgb 15.1 (13.0-17.5) gm/dL Hct 46.3 (39.0-53.0) % MCV 96.9 (80.0-100.0) fL MCH 31.6 (25.0-35.0) pg MCHC 32.5 (31.0-37.0) g/dL RDW 13.9 (11.5-15.5) % Plt Count 172 (150-450) k/uL Neutrophils % 70 % Lymphocytes % 20 % Monocytes % 5 % Eosinophils % 2 % Basophils % 1 % Neutrophils # 4.5 (1.3-7.7) k/uL Lymphocytes # 1.3 (1.0-4.8) k/uL Monocytes # 0.4 (0-1.0) k/uL Eosinophils # 0.2 (0-0.7) k/uL Basophils # 0.1 (0-0.2) k/uL PT 18.6 H (9.0-12.0) sec INR 1.9 H (<1.2) APTT 33.1 H (22.0-30.0) sec Sodium 137 (137-145) mmol/L Potassium 4.5 (3.5-5.1) mmol/L Chloride 106 (98-107) mmol/L Carbon Dioxide 27 (22-30) mmol/L Anion Gap 4 mmol/L BUN 18 (9-20) mg/dL Creatinine 0.95 (0.66-1.25) mg/dL Est GFR (CKD-EPI)AfAm 89 (>60 ml/min/1.73 sqM) Est GFR (CKD-EPI)NonAf 77 (>60 ml/min/1.73 sqM) Glucose 112 H (74-99) mg/dL Calcium 8.9 (8.4-10.2) mg/dL Magnesium 1.9 (1.6-2.3) mg/dL Total Bilirubin 0.7 (0.2-1.3) mg/dL AST 21 (17-59) U/L ALT 15 (4-49) U/L Alkaline Phosphatase 61 (38-126) U/L Troponin I (0.000-0.034) ng/mL Total Protein 6.7 (6.3-8.2) g/dL Albumin 3.8 (3.5-5.0) g/dL 09/27/20 Range/Units 16:04 WBC (3.8-10.6) k/uL RBC (4.30-5.90) m/uL Hgb (13.0-17.5) gm/dL Hct (39.0-53.0) % MCV (80.0-100.0) fL MCH (25.0-35.0) pg MCHC (31.0-37.0) g/dL RDW (11.5-15.5) % Plt Count (150-450) k/uL Neutrophils % % Lymphocytes % % Monocytes % % Eosinophils % % Basophils % % Neutrophils # (1.3-7.7) k/uL Lymphocytes # (1.0-4.8) k/uL Monocytes # (0-1.0) k/uL Eosinophils # (0-0.7) k/uL Basophils # (0-0.2) k/uL PT (9.0-12.0) sec INR (<1.2) APTT (22.0-30.0) sec Sodium (137-145) mmol/L Potassium (3.5-5.1) mmol/L Chloride (98-107) mmol/L Carbon Dioxide (22-30) mmol/L Anion Gap mmol/L BUN (9-20) mg/dL Creatinine (0.66-1.25) mg/dL Est GFR (CKD-EPI)AfAm (>60 ml/min/1.73 sqM) Est GFR (CKD-EPI)NonAf (>60 ml/min/1.73 sqM) Glucose (74-99) mg/dL Calcium (8.4-10.2) mg/dL Magnesium (1.6-2.3) mg/dL Total Bilirubin (0.2-1.3) mg/dL AST (17-59) U/L ALT (4-49) U/L Alkaline Phosphatase (38-126) U/L Troponin I <0.012 (0.000-0.034) ng/mL Total Protein (6.3-8.2) g/dL Albumin (3.5-5.0) g/dL Disposition Clinical Impression: Coronary artery disease, Bradycardia Disposition: ADMITTED IP TO THIS HOSP Condition: Stable Is patient prescribed a controlled substance at d/c from ED?: No Referrals: Alvin Mott MD [Primary Care Provider] - 1-2 days Decision to Admit Reason: Admit from EC Decision Date: 09/27/20 Decision Time: 17:03
--- NOTE | 2020-09-27 16:30 | XR ---
EXAMINATION TYPE: XR chest 2V DATE OF EXAM: 09/27/2020 COMPARISON: Chest x-ray September 19, 2020 HISTORY: Dysrhythmia. TECHNIQUE: Frontal and lateral views of the chest are obtained. FINDINGS: There is chronic parenchymal change without suspicious focal focal air space opacity, pleu ral effusion, or pneumothorax seen. The cardiac silhouette size is mildly enlarged with ectatic aort a. The osseous structures are intact. IMPRESSION: Mild cardiomegaly and chronic changes without acute pulmonary process. No significant ch alfredo from prior.
[2020-09-27 16:39] LABS: INR 1.9 (<1.2); Partial Thromboplastin Time 33.1 sec (22.0-30.0); Prothrombin Time 18.6 sec (9.0-12.0)
[2020-09-27 16:41] LABS: Albumin 3.8 g/dL (3.5-5.0); Calcium 8.9 mg/dL (8.4-10.2); Magnesium 1.9 mg/dL (1.6-2.3); Potassium 4.5 mmol/L (3.5-5.1); Total Bilirubin 0.7 mg/dL (0.2-1.3); Total Protein 6.7 g/dL (6.3-8.2)
[2020-09-27] MEDS ORDERED: NALOXONE 0.4 MG/ML 1 ML VIAL IV PRN (16:59)
[2020-09-27] MEDS ORDERED: ACETAMINOPHEN TAB 325 MG TAB PO PRN (16:59)
[2020-09-27] MEDS ORDERED: WARFARIN 5 MG TAB PO SCH (18:30)
[2020-09-27] MEDS: ALBUTEROL NEBULIZED 2.5 MG/3 ML INHALATION SCH (20:30)
[2020-09-27] MEDS ORDERED: ATORVASTATIN 40 MG TAB PO SCH (21:00)
[2020-09-28 07:08] LABS: INR 2.1 (<1.2); Prothrombin Time 20.6 sec (9.0-12.0)
[2020-09-28] MEDS: ALBUTEROL NEBULIZED 2.5 MG/3 ML INHALATION SCH ×3 (08:25→15:53)
[2020-09-28] MEDS ORDERED: LOSARTAN 25 MG TAB PO SCH (09:00)
[2020-09-28] MEDS ORDERED: ARIPiprazole 5 MG TAB PO SCH (09:00)
[2020-09-28] MEDS ORDERED: MAGNESIUM SULFATE-D5W PMX 1 GM in DEXTROSE/WATER 1 100ML.BAG IVPB ONE ×2 (09:01→09:04)
[2020-09-28] MEDS ORDERED: METOPROLOL TARTRATE 12.5 MG TAB PO SCH (09:15)
[2020-09-28 09:17] VITALS: RESP 16
--- NOTE | 2020-09-28 11:28 | CONS ---
CONSULTATION Mr. Gottlieb was recently in [facility]. This gentleman has history of triple- vessel disease and was seen by Surgery but was advised to have operation, but patient chose to pursue medical therapy. He was seen in the hospital recently because of some lethargy, weakness, and asymptomatic bradycardia. He also had isolated PVCs. He was placed on an event monitor in the office after discharge and seen by his primary american indian studies professor, Dr. Cristina. The patient came back to the hospital after he was notified by the monitoring company. He had an event monitor and was told that he had an abnormal rhythm, was advised to come into the hospital. He denies any chest pain. Complains of generalized weakness, lack of energy, specifically no chest pain, palpitations, syncope or near syncope. He has history of ischemic cardiomyopathy, but the ejection fraction was in the range of about 50% to 55% based on a previous echocardiogram. He was advised cardiac bypass surgery, but the patient has decided to pursue medical therapy. Cardiac catheterization was performed on September [address] Cristina and study revealed the left main had an 80% stenosis in the distal portion and LAD had multiple areas of narrowing in the ostium and midportion. Circumflex also had multiple areas of narrowing. His recent hospitalization was remarkable for fatigue, lack of energy and also some PVCs and asymptomatic bradycardia. After discharge from the hospital, he had an event monitor placed. Event monitor revealed 6-8 beat run of PVCs at a rate of 132 beats per minute. He did not have any symptoms. In the hospital here, he is having isolated PVCs. His potassium is 4.5, magnesium is 1.6. Please refer to my recent note for other information. MEDICATIONS: At home include Coumadin for DVT, losartan 25 mg daily. He takes Lexapro, Lipitor 40 mg daily, and an inhaler. ALLERGIES: No known drug allergies. PHYSICAL EXAMINATION: On examination, blood pressure is 130/70, pulse rate is 56. HEENT: Unremarkable. Fundus was not examined by me. NECK: Supple, there is JVD of 1 cm. No carotid bruit. HEART: Exam reveals S1, S2 with a short systolic murmur. LUNGS: Reveal diminished air entry. ABDOMEN: Soft. LOWER EXTREMITIES: Reveal diminished pulses. CENTRAL NERVOUS SYSTEM: Grossly no focal deficits. IMPRESSION: 1. Nonsustained ventricular tachycardia in a patient with known CAD. 2. History of triple-vessel disease and left main disease. The patient wishes to pursue medical therapy and did not wish to proceed with surgery. 3. History of DVT, on anticoagulation. RECOMMENDATIONS: I am recommending that his magnesium is at the low end of normal. We will give him a gram of magnesium, place him on 12.5 mg of Lopressor, watch and see how he does for any bradycardia for 24 hours and discharge him either later today or tomorrow if he has no further issues or symptoms. He will follow with Dr. Cristina. If we have to give any increased dose of beta tremayne or other drugs for his arrhythmia, he may require a pacemaker and this was explained to the patient. At this time, we will try a small dose of beta tremayne and hopefully discharge him on that and see how he does. MMMAURICEL / IJN: [id number] /
[2020-09-28 15:33] VITALS: BP 110/67; PULSE 58; TEMP 98.1
== END 2020-09-28 15:10 | disposition home health service (06) ==
LOC: EC 15:42 → 3NCARDOBS 16:59
PROVIDERS: ADMIT Family Medicine; ATTEND Family Medicine
DX: I47.2 Ventricular tachycardia (principal); R00.1 Bradycardia, unspecified; R10.30 Lower abdominal pain, unspecified; I25.10 Atherosclerotic heart disease of native coronary artery without angina pectoris; J45.909 Unspecified asthma, uncomplicated; J44.9 Chronic obstructive pulmonary disease, unspecified; E78.5 Hyperlipidemia, unspecified; I10 Essential (primary) hypertension; F41.9 Anxiety disorder, unspecified; F31.9 Bipolar disorder, unspecified; I49.3 Ventricular premature depolarization; I25.5 Ischemic cardiomyopathy; Z79.899 Other long term (current) drug therapy; Z79.01 Long term (current) use of anticoagulants; Z90.89 Acquired absence of other organs; Z98.890 Other specified postprocedural states; Z90.79 Acquired absence of other genital organ(s); Z87.891 Personal history of nicotine dependence; Z86.718 Personal history of other venous thrombosis and embolism; Z80.9 Family history of malignant neoplasm, unspecified
CPT/HCPCS: 93005 ×2; 99285; 36415; 97162; 97166; 80053; 83735; 84484; 85025; 85610 ×2; 85730; 71046; G0378 ×2; J3475

== ENCOUNTER 2020-10-15 23:14 | Inpatient (IN) | payer MEDICARE ==
[2020-10-15] MEDS ORDERED: ACETAMINOPHEN TAB 500 MG TAB PO STA (23:43)
[2020-10-15] MEDS ORDERED: IPRATROPIUM-ALBUTEROL 3 ML NEB INHALATION STA (23:44)
[2020-10-15] MEDS ORDERED: SODIUM CHLORIDE 0.9% 500 ML 500 ML IV SCH (23:45)
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
[2020-10-16 00:11] LABS: Basophils # (A) 0.1 k/uL (0-0.2); Basophils % (A) 1 %; Eosinophils # (A) 0.2 k/uL (0-0.7); Eosinophils % (A) 3 %; HCT 45.1 % (39.0-53.0); HGB 15.2 gm/dL (13.0-17.5); Lymphocytes # (A) 0.5 k/uL (1.0-4.8); Lymphocytes % (A) 8 %; MCH 31.7 pg (25.0-35.0); MCHC 33.7 g/dL (31.0-37.0); MCV 94.1 fL (80.0-100.0); Mean Platelet Volume 7.2; Monocytes # (A) 0.4 k/uL (0-1.0); Monocytes % (A) 6 %; Neutrophils % (A) 79 %; Platelet Count 159 k/uL (150-450); RBC 4.79 m/uL (4.30-5.90); RDW 13.8 % (11.5-15.5); WBC 6.3 k/uL (3.8-10.6)
[2020-10-16 00:18] LABS: Albumin 3.8 g/dL (3.5-5.0); Calcium 8.8 mg/dL (8.4-10.2); Potassium 4.1 mmol/L (3.5-5.1); Total Protein 6.6 g/dL (6.3-8.2)
[2020-10-16 00:22] LABS: INR 2.3 (<1.2); Partial Thromboplastin Time 35.8 sec (22.0-30.0); Prothrombin Time 22.8 sec (9.0-12.0)
--- NOTE | 2020-10-16 00:45 | XR ---
EXAM: XR Chest, 1 View CLINICAL HISTORY: ITS.REASON XR Reason: Fever TECHNIQUE: Frontal view of the chest. COMPARISON: Numerable wide 2020 the cardiac silhouette is moderately enlarged. FINDINGS: Artifacts: Artifact from massive body habitus and portable technique. Lungs: Pulmonary vascularity is prominent but sharply defined. Pleural space: No pneumothorax or pleural effusion is seen. Heart: Unremarkable. No cardiomegaly. Mediastinum: Unremarkable. Bones/joints: Unremarkable. Upper abdomen: No pneumoperitoneum is seen under the diaphragm. IMPRESSION: Cardiomegaly is present as well as possible mild emphysema, similar to previous. There is artifact from large body habitus and portable technique. No definite acute process identified.
[2020-10-16 01:38] LABS: Color,Urine Yellow
[2020-10-16 01:39] LABS: Appearance,Urine Slightly Cloudy (Clear); Protein,Urine 1+ (Negative); Specific Gravity,Urine 1.022 (1.001-1.035)
[2020-10-16 01:43] LABS: Bilirubin,Urine Negative (Negative); Blood,Urine Trace (Negative); Glucose,Urine (UA) Negative (Negative); Ketones,Urine Negative (Negative)
[2020-10-16 01:44] LABS: Leukocyte Esterase,Urine Large (Negative); Nitrite,Urine Positive (Negative); Urobilinogen,Urine <2.0 mg/dL (<2.0)
[2020-10-16 01:50] LABS: Hyaline Casts,Urine 4 /lpf (0-2); Mucus,Urine Rare /hpf; RBC,Urine 6 /hpf (0-5); Squamous Epithelial Cell,Urine <1 /hpf (0-4); WBC,Urine 39 /hpf (0-5)
[2020-10-16] MEDS ORDERED: methylPREDNISolone SOD SUCCI 125 MG/2 ML VIAL IV STA (02:00)
[2020-10-16] MEDS: methylPREDNISolone SOD SUCCI 125 MG/2 ML VIAL IV SCH ×4 (05:14→23:57)
[2020-10-16 07:07] LABS: Glucose,Whole Blood 177 mg/dL (75-99)
[2020-10-16] MEDS: IPRATROPIUM-ALBUTEROL 3 ML NEB INHALATION SCH ×3 (07:52→19:39)
[2020-10-16] MEDS: LORATADINE 10 MG TAB PO SCH (08:53)
[2020-10-16] MEDS: METOPROLOL TARTRATE 12.5 MG TAB PO SCH (08:53)
[2020-10-16] MEDS ORDERED: LEVOCETIRIZINE DIHYDROCHLORIDE 5 MG PO SCH (09:00)
[2020-10-16 10:21] LABS: Basophils % (A) 0 %; Eosinophils % (A) 1 %; HCT 43.2 % (39.0-53.0); HGB 14.5 gm/dL (13.0-17.5); Lymphocytes # (A) 0.4 k/uL (1.0-4.8); Lymphocytes % (A) 8 %; MCH 32.1 pg (25.0-35.0); MCHC 33.7 g/dL (31.0-37.0); MCV 95.5 fL (80.0-100.0); Monocytes # (A) 0.1 k/uL (0-1.0); Monocytes % (A) 2 %; Neutrophils # (A) 4.6 k/uL (1.3-7.7); Neutrophils % (A) 89 %; Platelet Count 172 k/uL (150-450); RBC 4.53 m/uL (4.30-5.90); RDW 13.7 % (11.5-15.5); WBC 5.1 k/uL (3.8-10.6)
[2020-10-16 10:30] LABS: ALT 18 U/L (4-49); AST 26 U/L (17-59); African American GFR (CKD) 86 (>60 ml/min/1.73 sqM); Albumin 3.6 g/dL (3.5-5.0); Albumin/Globulin Ratio 1.3; Alkaline Phosphatase 74 U/L (38-126); Anion Gap 6 mmol/L; Blood Urea Nitrogen 21 mg/dL (9-20); Calcium 8.7 mg/dL (8.4-10.2); Carbon Dioxide 29 mmol/L (22-30); Chloride 103 mmol/L (98-107); Globulin 2.7 g/dL; Glucose 189 mg/dL (74-99); Magnesium 2.1 mg/dL (1.6-2.3); Non-African American GFR(CKD) 75 (>60 ml/min/1.73 sqM); Potassium 4.5 mmol/L (3.5-5.1); Sodium 138 mmol/L (137-145); Total Bilirubin 0.6 mg/dL (0.2-1.3); Total Protein 6.3 g/dL (6.3-8.2)
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
[2020-10-16 10:52] LABS: Amorphous Sediment,Urine Rare /hpf
[2020-10-16 11:33] LABS: Glucose,Whole Blood 177 mg/dL (75-99)
[2020-10-16 11:33] LABS: INR 2.07 (0.90-1.11); Prothrombin Time 21.2 sec (9.9-11.9)
[2020-10-16] MEDS: ASPIRIN 81 MG PO SCH (11:51)
[2020-10-16] MEDS: INSULIN ASPART (NovoLOG) 100 UNIT/ML VIAL SQ SCH ×3 (11:52→20:15)
--- NOTE | 2020-10-16 12:12 | P.CRDCN ---
<Suad Crowe - Last Filed: 10/16/20 11:19> History of Present Illness History of present illness: HISTORY OF PRESENTING ILLNESS This is a pleasant 75-year-old male past medical history significant for coronary artery disease with multi-vessel CAD recommended for bypass grafting, history of PE on coumadin, dyslipidemia, hypertension, frequent PVC's and COPD. He follows in the office with Dr. Cristina. We have been asked to see in consultation for arrhythmia. Mr. Gottlieb is well known to us. He underwent cardiac catheterization with Dr. Cristina 09/03/2020 revealing heavily calcified coronary arteries, severe stenosis in the left main, chronic total occlusion of the RCA and diffuse disease of the LAD and circumflex. Initially he had declined bypass surgery. His images were reviewed at [facility] as well by Dr. Yost and he does believe he could undergo staged high risk PCI. He saw Dr. Cristina in the office 10/06 and his options were again discussed. The patient and his family have decided to pursue bypass grafting as a primary option and he has an appointment with Dr. Mcdonough next week for further discussion. He came to the hospital last night with symptoms of weakness, fatigue and cough. He is currently being treated for exacerbation of COPD and urinary tract infection. He is seen and examined resting comfortably laying flat in bed in no acute distress. He does appear mildly dyspneic with conversation. He denies chest pain, dizziness or palpitations. Telemetry tracings indicate sinus mechanism with frequent PVC's. Most recent echocardiogram obtained 12/2019 revealed preserved LV systolic function with EF 50-55%. DIAGNOSTICS EKG reveals sinus mechanism with poor R-wave progression. Chest xray mild emphysema. Laboratory reviewed, COVID negative, CBC unremarkable, sodium 138, potassium 4.5, creatinine 0.98, magnesium 2.1, INR 2.0. Current cardiac medications include coumadin, lopressor 12.5 mg daily, losartan 25 mg daily and atorvastatin 40 mg daily. REVIEW OF SYSTEMS At the time of my exam: CONSTITUTIONAL: Denies fever or chills. CARDIOVASCULAR: Complains of shortness of breath. Denies chest pain,orthopnea, PND or palpitations. RESPIRATORY: Complains of cough. GASTROINTESTINAL: Denies abdominal pain, diarrhea, constipation, nausea or vomiting. MUSCULOSKELETAL: Denies myalgias. NEUROLOGIC: Denies numbness, tingling or weakness. ENDOCRINE: Denies fatigue, weight change, polydipsia or polyurina. GENITOURINARY: Denies burning, hematuria or urgency with micturation. HEMATOLOGIC: Denies history of anemia or bleeding. PHYSICAL EXAMINATION Blood pressure 124/74 heart rate 62 afebrile and maintaining oxygen saturation on nasal cannula. CONSTITUTIONAL: No apparent distress. HEENT: Head is normocephalic. Pupils are equal, round. Sclerae anicteric. Mucous membranes of the mouth are moist. No JVD. No carotid bruit. CHEST EXAMINATION: Lungs are clear to auscultation. No chest wall tenderness is noted on palpation or with deep breathing. Diminished bilaterally. HEART EXAMINATION: Regular rate and rhythm. S1, S2 heard. No murmurs, gallops or rub. ABDOMEN: Soft, nontender. Positive bowel sounds. EXTREMITIES: 2+ peripheral pulses, no lower extremity edema and no calf tenderness. NEUROLOGIC EXAMINATION: Patient is awake, alert and oriented x3. ASSESSMENT Shortness of breath with history of COPD and coronary artery disease, breathing not improved by nebulizers at home Coronary artery disease PVC's, maintained on lopressor Hypertension Dyslipidemia History of PE on coumadin with therapeutic INR PLAN Check troponin and NTproBNP. Repeat limited echo to assess LV function. It is possible his symptoms are related to underlying severe coronary artery disease on top of COPD. Discussed with Cardiothoracic surgery regarding if they wanted to evaluate the patient while he is here. They recommend treating his symptoms at this time and keep his follow up appointment for next week with Dr. Mcdonough. Unless of course things change and his cardiac status decompensates or changes. In regards to the PVC, continue lopressor as previously ordered. Thank you kindly for this consultation. Nurse Practitioner note has been reviewed, I agree with a documented findings and plan of care. Patient was seen and examined. Past Medical History Past Medical History: Asthma, COPD, Hyperlipidemia, Hypertension Additional Past Medical History / Comment(s): pt states sexual issue in the past would not go into detaills. triple vessel disease History of Any Multi-Drug Resistant Organisms: None Reported Past Surgical History: Adenoidectomy, Heart Catheterization, Orthopedic Surgery, Prostate Surgery, Tonsillectomy Additional Past Surgical History / Comment(s): left wrist surgery 12 years ago,. cardiac cath- aug 2020. reduction of prostate. Past Anesthesia/Blood Transfusion Reactions: No Reported Reaction Smoking Status: Former smoker - Past Family History Mother Family Medical History: Cancer Father Family Medical History: Cancer Medications and Allergies Home Medications Medication Instructions Recorded Confirmed Type Atorvastatin [Lipitor] 40 mg PO HS 09/12/20 10/16/20 History Levocetirizine Dihydrochloride 5 mg PO DAILY 09/27/20 10/16/20 History [Xyzal] Losartan [Cozaar] 25 mg PO HS 09/27/20 10/16/20 History Warfarin [Coumadin] 5 mg PO HS 09/27/20 10/16/20 History Albuterol Nebulized [Ventolin 2.5 mg INHALATION 10/16/20 10/16/20 History Nebulized] RT-QID@08,,16,20 Fluticasone Nasal [place] [Flonase 2 spr EA NOSTRIL DAILY 10/16/20 10/16/20 History Nasal [place]] Ipratropium [place] [Atrovent Hfa] 2 puff INHALATION RT-DAILY 10/16/20 10/16/20 History Loperamide [Imodium] 2 mg PO DAILY PRN 10/16/20 10/16/20 History Metoprolol Tartrate [Lopressor] 12.5 mg PO DAILY 10/16/20 10/16/20 History Allergies Allergy/AdvReac Type Severity Reaction Status Date / Time No Known Allergies Allergy Verified 10/16/20 09:10 Physical Exam Vitals: Vital Signs Temp Pulse Pulse Resp BP BP Pulse Ox 10/16/20 07:00 98.4 F 62 20 124/74 94 L 10/16/20 04:17 97.9 F 81 20 132/67 96 10/16/20 02:50 98.9 F 74 21 137/69 97 10/16/20 01:18 75 10/16/20 01:10 77 10/16/20 01:00 99.1 F 76 20 144/76 97 10/15/20 23:16 101.7 F H 101 H 26 H 160/89 94 L Intake and Output 10/15/20 10/16/20 10/16/20 22:59 06:59 14:59 Other: Voiding Method Urinal Urinal # Voids 1 Weight 115.666 kg Results 10/16/20 10:02 10/16/20 10:02 Cardiac Enzymes 10/16/20 10/16/20 Range/Units 00:00 10:02 AST 34 26 (17-59) U/L Coagulation 10/16/20 Range/Units 00:00 PT 22.8 H (9.0-12.0) sec APTT 35.8 H (22.0-30.0) sec CBC 10/16/20 10/16/20 Range/Units 00:00 10:02 WBC 6.3 5.1 (3.8-10.6) k/uL RBC 4.79 4.53 (4.30-5.90) m/uL Hgb 15.2 14.5 (13.0-17.5) gm/dL Hct 45.1 43.2 (39.0-53.0) % Plt Count 159 172 (150-450) k/uL Comprehensive Metabolic Panel 10/16/20 10/16/20 Range/Units 00:00 10:02 Sodium 136 L 138 (137-145) mmol/L Potassium 4.1 4.5 (3.5-5.1) mmol/L Chloride 103 103 (98-107) mmol/L Carbon Dioxide 27 29 (22-30) mmol/L BUN 16 21 H (9-20) mg/dL Creatinine 1.18 0.98 (0.66-1.25) mg/dL Glucose 109 H 189 H (74-99) mg/dL Calcium 8.8 8.7 (8.4-10.2) mg/dL AST 34 26 (17-59) U/L ALT 18 18 (4-49) U/L Alkaline Phosphatase 78 74 (38-126) U/L Total Protein 6.6 6.3 (6.3-8.2) g/dL Albumin 3.8 3.6 (3.5-5.0) g/dL Current Medications Generic Name Dose Route Start Last Admin Trade Name Freq PRN Reason Stop Dose Admin Albuterol/Ipratropium 3 ml 10/16/20 08:00 10/16/20 07:52 Ipratropium-Albuterol 3 Ml Neb INHALATION Not Given RT-QID ALIREZA Albuterol/Ipratropium 3 ml 10/16/20 02:13 Ipratropium-Albuterol 3 Ml Neb INHALATION RT-Q4H PRN Shortness Of Breath Or Wheezing Aspirin 81 mg 10/16/20 11:30 Aspirin 81 Mg PO DAILY [facility] Atorvastatin Calcium 40 mg 10/16/20 21:00 Atorvastatin 40 Mg Tab PO HS [facility] Ceftriaxone Sodium 1 gm/ 50 mls @ 100 mls/hr 10/17/20 02:00 Sodium Chloride IVPB Q24H [facility] Insulin Aspart 0 unit 10/16/20 12:30 Insulin Aspart (Novolog) 100 Unit/Ml Vial SQ ACHS [facility] Protocol Loratadine 10 mg 10/16/20 09:00 10/16/20 08:53 Loratadine 10 Mg Tab PO 10 mg DAILY ALIREZA Administration Losartan Potassium 25 mg 10/16/20 21:00 Losartan 25 Mg Tab PO HS [facility] Methylprednisolone Sodium Succinate 60 mg 10/16/20 06:00 10/16/20 05:14 Methylprednisolone Sod Succi 125 Mg/2 Ml Vial IV 60 mg Q6HR [facility] Administration Metoprolol Tartrate 12.5 mg 10/16/20 09:00 10/16/20 08:53 Metoprolol Tartrate 12.5 Mg Tab PO 12.5 mg DAILY ALIREZA Administration Miscellaneous Information 0 each 10/16/20 08:57 Warfarin Per Pharmacy MISCELLANE DIRECTED PRN PHARMACY PROTOCOL Warfarin Sodium 5 mg 10/16/20 18:00 Warfarin 5 Mg Tab PO [id number]@1800 [facility] Protocol Warfarin Sodium 2.5 mg 10/18/20 18:00 Warfarin 2.5 Mg Tab PO SuTh@1800 [facility] Protocol Intake and Output 10/15/20 10/16/20 10/16/20 22:59 06:59 14:59 Other: Voiding Method Urinal Urinal # Voids 1 Weight 115.666 kg 10/16/20 10:02 10/16/20 10:02 <German Denise - Last Filed: 10/16/20 12:53> History of Present Illness History of present illness: Patient seen and examined and agree with note as above. Patient additionally did admit to the reason why he came into the hospital was shortness breath and chest pain. He states he did did not tell his niece about the chest pain. He is a somewhat poor historian. First troponin noted to be mildly elevated. Continue to trend troponins. Elevated troponin may be type II mechanism from very mild tachycardia and possible UTI however he was additionally having some chest pain and has severe coronary artery disease. We will have cardiothoracic surgery evaluate patient to discuss possible surgery and possible timing of surgery. Continue with supportive care. German Denise D.O. Physical Exam Vitals: Vital Signs Temp Pulse Pulse Resp BP BP Pulse Ox 10/16/20 12:13 97.4 F L 65 17 130/70 98 10/16/20 07:00 98.4 F 62 20 124/74 94 L 10/16/20 04:17 97.9 F 81 20 132/67 96 10/16/20 02:50 98.9 F 74 21 137/69 97 10/16/20 01:18 75 10/16/20 01:10 77 10/16/20 01:00 99.1 F 76 20 144/76 97 10/15/20 23:16 101.7 F H 101 H 26 H 160/89 94 L Intake and Output 10/15/20 10/16/20 10/16/20 22:59 06:59 14:59 Other: Voiding Method Urinal Urinal # Voids 1 Weight 115.666 kg Results 10/16/20 10:02 10/16/20 10:02 Cardiac Enzymes 10/16/20 10/16/20 10/16/20 Range/Units 00:00 10:00 10:02 AST 34 26 (17-59) U/L Troponin I 0.035 H* (0.000-0.034) ng/mL Coagulation 10/16/20 10/16/20 Range/Units 00:00 07:30 PT 22.8 H 21.2 H (9.0-12.0) sec APTT 35.8 H (22.0-30.0) sec CBC 10/16/20 10/16/20 Range/Units 00:00 10:02 WBC 6.3 5.1 (3.8-10.6) k/uL RBC 4.79 4.53 (4.30-5.90) m/uL Hgb 15.2 14.5 (13.0-17.5) gm/dL Hct 45.1 43.2 (39.0-53.0) % Plt Count 159 172 (150-450) k/uL Comprehensive Metabolic Panel 10/16/20 10/16/20 Range/Units 00:00 10:02 Sodium 136 L 138 (137-145) mmol/L Potassium 4.1 4.5 (3.5-5.1) mmol/L Chloride 103 103 (98-107) mmol/L Carbon Dioxide 27 29 (22-30) mmol/L BUN 16 21 H (9-20) mg/dL Creatinine 1.18 0.98 (0.66-1.25) mg/dL Glucose 109 H 189 H (74-99) mg/dL Calcium 8.8 8.7 (8.4-10.2) mg/dL AST 34 26 (17-59) U/L ALT 18 18 (4-49) U/L Alkaline Phosphatase 78 74 (38-126) U/L Total Protein 6.6 6.3 (6.3-8.2) g/dL Albumin 3.8 3.6 (3.5-5.0) g/dL Current Medications Generic Name Dose Route Start Last Admin Trade Name Freq PRN Reason Stop Dose Admin Albuterol/Ipratropium 3 ml 10/16/20 08:00 10/16/20 11:46 Ipratropium-Albuterol 3 Ml Neb INHALATION Not Given RT-QID ALIREZA Albuterol/Ipratropium 3 ml 10/16/20 02:13 Ipratropium-Albuterol 3 Ml Neb INHALATION RT-Q4H PRN Shortness Of Breath Or Wheezing Aspirin 81 mg 10/16/20 11:30 10/16/20 11:51 Aspirin 81 Mg PO 81 mg DAILY ALIREZA Administration Atorvastatin Calcium 40 mg 10/16/20 21:00 Atorvastatin 40 Mg Tab PO HS ALIREZA Heparin Sodium (Porcine) 0 unit 10/16/20 12:36 Heparin Sodium,Porcine 5,000 Unit/Ml 1 Ml Vial IV PER PROTOCOL PRN Low PTT Protocol Ceftriaxone Sodium 1 gm/ 50 mls @ 100 mls/hr 10/17/20 02:00 Sodium Chloride IVPB Q24H ALIREZA Heparin Sodium/Sodium Chloride 250 mls @ 10.005 mls/hr 10/16/20 12:45 25,000 unit/ Sodium Chloride IV .Q24H [facility] Protocol 8.65 UNITS/KG/HR Insulin Aspart 0 unit 10/16/20 12:30 10/16/20 11:52 Insulin Aspart (Novolog) 100 Unit/Ml Vial SQ 4 unit ACHS ALIREZA Administration Protocol Loratadine 10 mg 10/16/20 09:00 10/16/20 08:53 Loratadine 10 Mg Tab PO 10 mg DAILY ALIREZA Administration Losartan Potassium 25 mg 10/16/20 21:00 Losartan 25 Mg Tab PO HS ALIREZA Methylprednisolone Sodium Succinate 60 mg 10/16/20 06:00 10/16/20 11:51 Methylprednisolone Sod Succi 125 Mg/2 Ml Vial IV 60 mg Q6HR ALIREZA Administration Metoprolol Tartrate 12.5 mg 10/16/20 09:00 10/16/20 08:53 Metoprolol Tartrate 12.5 Mg Tab PO 12.5 mg DAILY ALIREZA Administration Intake and Output 10/15/20 10/16/20 10/16/20 22:59 06:59 14:59 Other: Voiding Method Urinal Urinal # Voids 1 Weight 115.666 kg 10/16/20 10:02 10/16/20 10:02
[2020-10-16] MEDS ORDERED: HEPARIN SODIUM,PORCINE 5,000 UNIT/ML 1 ML VIAL IV ONE (12:36)
[2020-10-16] MEDS ORDERED: HEPARIN SODIUM,PORCINE 5,000 UNIT/ML 1 ML VIAL IV PRN (12:36)
[2020-10-16] MEDS ORDERED: HEPARIN SOD,PORK IN 0.45% NACL 25,000 UNIT in 0.45% NACL 1 250ML.BAG IV SCH (12:45)
--- NOTE | 2020-10-16 14:19 | P.CNPUL ---
History of Present Illness Consult date: 10/16/20 Requesting physician: Vanessa Moore Reason for consult: dyspnea, COPD Chief complaint: Shortness of breath, chest discomfort, cough, congestion History of present illness: This is a very pleasant 75-year-old gentleman who follows with Dr. Alvin Mott as his primary care provider. 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 Most recent CT of the chest done in May 2020 showed complete clearing of the pulmonary emboli. Follows with Dr. Boyd. The patient also has chronic obstructive pulmonary disease with an FEV1 value 55% of predicted. He is chronically on oxygen at 2 L/m as needed. He is on Advair and DuoNeb inhalations. He does have a history of obstructive sleep apnea and is on APAP with a minimum pressure of 8 and maximum pressure of 16 with a C-Flex of 3. He follows with Dr. Mar in our office for the same. He presented to the emergency room last night with complaints of increasing fatigue, shortness of breath, cough or congestion. He also felt as though he had a fever. He did utilize his nebulized treatments without much improvement. He was also having some chest discomfort. Chest x-ray revealed evidence of cardiomegaly as well as underlying emphysema. White count 5.1. Hemoglobin 14.5. Leukocyte 0.4. INR 2.07. Sodium 138. Potassium 4.5. Creatinine 0.98. Troponin 0.035. ProBNP 996. Influenza not detected. Florez virus not detected. Review of Systems REVIEW OF SYSTEMS: CONSTITUTIONAL: Fatigue, weakness. Denies any recent significant weight loss or weight gain. EYES: Denies change in vision. EARS, NOSE, MOUTH, THROAT: Denies headaches, denies sore throat. CARDIOVASCULAR: Positive for chest pain, no palpitations or syncopal episodes. RESPIRATORY: Positive for shortness of breath, cough, congestion no hemoptysis. GASTROINTESTINAL: Denies change in appetite, denies abdominal pain GENITOURINARY: Denies hematuria, denies infections. MUSKULOSKELETAL: Denies pain, denies swelling. INTEGUMENTARY: Denies rash, denies eczema. NEUROLOGICAL: Denies recent memory loss, no recent seizure activity. PSYCHIATRIC: Denies anxiety, denies depression. HEMATOLOGIC/LYMPHATIC: Denies anemia, denies enlarged lymph nodes. Past Medical History Past Medical History: Asthma, COPD, Hyperlipidemia, Hypertension Additional Past Medical History / Comment(s): pt states sexual issue in the past would not go into detaills. triple vessel disease History of Any Multi-Drug Resistant Organisms: None Reported Past Surgical History: Adenoidectomy, Heart Catheterization, Orthopedic Surgery, Prostate Surgery, Tonsillectomy Additional Past Surgical History / Comment(s): left wrist surgery 12 years ago,. cardiac cath- aug 2020. reduction of prostate. Past Anesthesia/Blood Transfusion Reactions: No Reported Reaction Smoking Status: Former smoker - Past Family History Mother Family Medical History: Cancer Father Family Medical History: Cancer Medications and Allergies Home Medications Medication Instructions Recorded Confirmed Type Atorvastatin [Lipitor] 40 mg PO HS 09/12/20 10/16/20 History Levocetirizine Dihydrochloride 5 mg PO DAILY 09/27/20 10/16/20 History [Xyzal] Losartan [Cozaar] 25 mg PO HS 09/27/20 10/16/20 History Warfarin [Coumadin] 5 mg PO HS 09/27/20 10/16/20 History Albuterol Nebulized [Ventolin 2.5 mg INHALATION 10/16/20 10/16/20 History Nebulized] RT-QID@08,12,16,20 Fluticasone Nasal [place] [Flonase 2 spr EA NOSTRIL DAILY 10/16/20 10/16/20 History Nasal [place]] Ipratropium [place] [Atrovent Hfa] 2 puff INHALATION RT-DAILY 10/16/20 10/16/20 History Loperamide [Imodium] 2 mg PO DAILY PRN 10/16/20 10/16/20 History Metoprolol Tartrate [Lopressor] 12.5 mg PO DAILY 10/16/20 10/16/20 History Allergies Allergy/AdvReac Type Severity Reaction Status Date / Time No Known Allergies Allergy Verified 10/16/20 09:10 Physical Exam Vitals: Vital Signs Temp Pulse Pulse Resp BP BP Pulse Ox 10/16/20 12:13 97.4 F L 65 17 130/70 98 10/16/20 07:00 98.4 F 62 20 124/74 94 L 10/16/20 04:17 97.9 F 81 20 132/67 96 10/16/20 02:50 98.9 F 74 21 137/69 97 10/16/20 01:18 75 10/16/20 01:10 77 10/16/20 01:00 99.1 F 76 20 144/76 97 10/15/20 23:16 101.7 F H 101 H 26 H 160/89 94 L Intake and Output 10/15/20 10/16/20 10/16/20 22:59 06:59 14:59 Other: Voiding Method Urinal Urinal # Voids 1 2 Weight 115.666 kg GENERAL EXAM: Alert, pleasant 75-year-old obese male patient, on 2 L nasal cannula with O2 saturation 98%, comfortable in no apparent distress. HEAD: Normocephalic. EYES: Normal reaction of pupils, equal size. NOSE: Clear with pink turbinates. THROAT: No erythema or exudates. NECK: No masses, no JVD. CHEST: No chest wall deformity. LUNGS: Equal air entry with faint end expiratory wheeze, posterior crackles, diminished. CVS: S1 and S2 normal with no audible murmur, regular rhythm. ABDOMEN: No hepatosplenomegaly, normal bowel sounds, no guarding or rigidity. SPINE: No scoliosis or deformity SKIN: No rashes CENTRAL NERVOUS SYSTEM: No focal deficits, tone is normal in all 4 extremities. EXTREMITIES: There is no peripheral edema. No clubbing, no cyanosis. Peripheral pulses are intact. Results - Laboratory Findings CBC and BMP: 10/16/20 10:02 10/16/20 10:02 PT/INR, D-dimer PT 21.2 sec (9.9-11.9) H 10/16/20 07:30 INR 2.07 (0.90-1.11) H 10/16/20 07:30 Abnormal lab findings: Abnormal Labs 10/16/20 10/16/20 10/16/20 00:00 00:00 00:00 Lymphocytes # 0.5 L PT 22.8 H INR 2.3 H APTT 35.8 H Sodium BUN Glucose POC Glucose (mg/dL) Troponin I Urine Blood Trace H Urine RBC 6 H Urine WBC 39 H Amorphous Sediment Rare H Hyaline Casts 4 H Urine Mucus Rare H 10/16/20 10/16/20 10/16/20 00:00 07:05 07:30 Lymphocytes # PT 21.2 H INR 2.07 H APTT Sodium 136 L BUN Glucose 109 H POC Glucose (mg/dL) 177 H Troponin I Urine Blood Urine RBC Urine WBC Amorphous Sediment Hyaline Casts Urine Mucus 10/16/20 10/16/20 10/16/20 10:00 10:02 10:02 Lymphocytes # 0.4 L PT INR APTT Sodium BUN 21 H Glucose 189 H POC Glucose (mg/dL) Troponin I 0.035 H* Urine Blood Urine RBC Urine WBC Amorphous Sediment Hyaline Casts Urine Mucus 10/16/20 11:32 Lymphocytes # PT INR APTT Sodium BUN Glucose POC Glucose (mg/dL) 177 H Troponin I Urine Blood Urine RBC Urine WBC Amorphous Sediment Hyaline Casts Urine Mucus - Diagnostic Findings Chest x-ray: image reviewed Assessment and Plan Assessment: 1 Acute on chronic hypoxemic respiratory failure secondary to an acute exacerbation of chronic obstructive pulmonary disease and acute exacerbation of diastolic congestive heart failure 2 Chronic tobacco dependence of greater than 45 years, quit approximately a year and half ago 3 Troponin leak 4 History of PE/DVT, unprovoked, on warfarin, therapeutic 5 Morbid obesity 6 Obstructive sleep apnea on APAP in the outpatient setting minimum pressure of 8 and maximum pressure of 16 with a C-flex of 3 7 Benign prostatic hyperplasia 8 History of frequent urinary tract infections 9 Hypertension 10 Hyperlipidemia 11 Bipolar disorder 12 Chronic back pain Plan: The patient was seen and evaluated by Dr. Mar Chest x-ray and labs reviewed Continue with bronchodilators, IV Solu-Medrol Continue warfarin Continue empiric antibiotics for now Awaiting follow-up troponins We'll continue to follow and make further recommendations based on his clinical status I, the cosigning physician, performed a history & physical examination of the patient. Lungs sounds faint end expiratory wheeze, posterior crackles, diminished. Maintaining good O2 saturations in the 90s on 2 L/m per nasal cannula. I discussed the assessment and plan of care with my nurse practitioner, Nara Gregory. I attest to the above consultation as dictated by her. Time with Patient: Greater than 30
--- NOTE | 2020-10-16 17:00 | ECHOF ---
Referral Reason:lv function MEASUREMENTS -------- HEIGHT: 180.3 cm WEIGHT: 115.7 kg BP: IVSd: 1.2 cm (0.6 - 1.1) LVIDd: 4.4 cm (3.9 - 5.3) LVPWd: 1.3 cm (0.6 - 1.1) IVSs: 1.8 cm LVIDs: 2.8 cm LVPWs: 2.0 cm FINDINGS -------- This was a technically difficult study with suboptimal views. Limited Study The left ventricular size is normal. There is mild concentric left ventricular hypertrophy. Overa ll left ventricular systolic function is low-normal with, an EF between 50 - 55 %. xx ml of Lumason was utilized for enhancement of images. There is no pericardial effusion. CONCLUSIONS -------- 1. The left ventricular size is normal. 2. There is mild concentric left ventricular hypertrophy. 3. Overall left ventricular systolic function is low-normal with, an EF between 50 - 55 %. 4. There is no pericardial effusion. SHOW CARD LETTERER: Romi Mliian, [facility]
--- NOTE | 2020-10-16 17:08 | P.GSCN ---
<Lux Segovia - Last Filed: 10/16/20 16:27> History of Present Illness Consult date: 10/16/20 Reason for Consult: Known history of multivessel coronary artery disease, known to cardiothoracic s urgery service. Requesting physician: German Denise History of present illness: This is a 75-year-old gentleman who follows with Dr. Alvin Mott on an outpatient basis. He has a past medical history significant for known history of multivessel coronary artery disease, hypertension, hyperlipidemia, pulmonary embolism as well as bilateral lower extremity DVTs and he is on Coumadin for anticoagulation, severe COPD with a FEV1 55% of predicted value, home oxygen use at 2 L/m, obstructive sleep apnea with home CPAP use, pneumonia, dementia, mo rbid obesity, BPH, recurrent UTIs, previous tobacco dependence quit smoking about 1 year ago, previous EtOH abuse, morbid obesity and bipolar/anxiety/depression with previous suicide attempt. The patient was seen and examined at his bedside on the cardiac stepdown unit and he is somewhat of a poor historian. The patient's history was obtained from his niece Shea, whom he lives with per phone. The patient presented to the emergency department here at [facility] last evening after his niece found him somewhat disoriented, feeling weak, with an elevated heart rate in the 180s and his blood pressure 155/130. His niece reports that he denies any nausea, vomiting, fever, chills, dizziness, chest pain or pressure, shortness of breath, presyncope or syncope. Initial laboratory results showed WBCs 6.3, hemoglobin 15.2, platelets 159, PTT 35.8, PTT 22.8, INR was 2.3, BUN 16, creatinine 1.18, initial troponin 0.035 and troponin from this afternoon 0.018. A 12-lead EKG was completed which shows normal sinus rhythm with poor R-wave progression. A chest x-ray was also completed which showed no definite acute process and mild emphysema. Due to the patient's presenting symptoms he was admitted to the hospital for further evaluation and treatment recommendations. In August 2020 the patient underwent a cardiac catheterization which demonstrated a distal left main stenosis of 80%, ostial left anterior descending stenosis 80-90%, ostial left circumflex stenosis 70% with an 80% stenosis in the first obtuse marginal coronary artery, a totally occluded right coronary artery with collateral circulation from the left to the right. Also during that heart catheterization a left ventriculogram was completed which showed an ejection fraction calculated at 50-55% with inferior basal hypokinesis. Due to the patient's known multivessel coronary artery disease a consult was placed today for Dr. Jhonatan Mcdonough for further evaluation and treatment recommendations. Review of Systems A 14 point review of systems was completed and was negative except as mentioned in the HPI. Past Medical History Past Medical History: Asthma, Coronary Artery Disease (CAD), COPD, Dementia, Deep Vein Thrombosis (DVT), Hyperlipidemia, Hypertension, Memory Impairment, Pulmonary Embolus (PE), Sleep Apnea/CPAP/BIPAP History of Any Multi-Drug Resistant Organisms: None Reported Past Surgical History: Adenoidectomy, Heart Catheterization, Orthopedic Surgery, Prostate Surgery, Tonsillectomy Additional Past Surgical History / Comment(s): left wrist surgery 12 years ago,. cardiac cath- aug 2020. reduction of prostate. Past Anesthesia/Blood Transfusion Reactions: No Reported Reaction Past Psychological History: Anxiety, Bipolar, Depression Smoking Status: Former smoker Past Alcohol Use History: None Reported (History of EtOH abuse) Past Drug Use History: None Reported - Past Family History Mother Family Medical History: Cancer Father Family Medical History: Cancer Medications and Allergies Home Medications Medication Instructions Recorded Confirmed Type Atorvastatin [Lipitor] 40 mg PO HS 09/12/20 10/16/20 History Levocetirizine Dihydrochloride 5 mg PO DAILY 09/27/20 10/16/20 History [Xyzal] Losartan [Cozaar] 25 mg PO HS 09/27/20 10/16/20 History Warfarin [Coumadin] 5 mg PO HS 09/27/20 10/16/20 History Albuterol Nebulized [Ventolin 2.5 mg INHALATION 10/16/20 10/16/20 History Nebulized] RT-QID@08,12,16,20 Fluticasone Nasal [place] [Flonase 2 spr EA NOSTRIL DAILY 10/16/20 10/16/20 History Nasal [place]] Ipratropium [place] [Atrovent Hfa] 2 puff INHALATION RT-DAILY 10/16/20 10/16/20 History Loperamide [Imodium] 2 mg PO DAILY PRN 10/16/20 10/16/20 History Metoprolol Tartrate [Lopressor] 12.5 mg PO DAILY 10/16/20 10/16/20 History Allergies Allergy/AdvReac Type Severity Reaction Status Date / Time No Known Allergies Allergy Verified 10/16/20 09:10 Surgical - Exam Vital Signs Temp Pulse Resp BP Pulse Ox 101.7 F H 101 H 26 H 160/89 94 L 10/15/20 23:16 10/15/20 23:16 10/15/20 23:16 10/15/20 23:16 10/15/20 23:16 - General Morbidly obese. well developed, well nourished, no distress, no pain - Eyes PERRL, normal ocular movement, no icteric - ENT normal pinna, normal nares, normal mucosa, no hearing loss, no congestion, poor usp - Neck Neck is supple, no lymphadenopathy. no masses, no bruits, trachea midline, no venous distension - Respiratory Essentially clear with few scattered expiratory wheezes, few scattered crackles to his bilateral bases. Respirations are symmetrical and nonlabored. - Cardiovascular Regular rhythm and rate. S1 and S2 present, negative for S3, gallop or murmur. - Abdomen Abdomen is soft, nontender and nondistended. Active bowel sounds present in all 4 abdominal quadrants. No guarding or rigidity. Abdomen: no organomegaly - Genitourinary Deferred - Rectum Deferred - Integumentary no rash, no growths, no abnormal pigmentation - Neurologic Alert, cranial nerves II through XII intact. - Musculoskeletal moves all 4 extremities. Equal strength bilateral. - Psychiatric oriented to time, oriented to person, oriented to place, speech is normal Results - Labs 10/16/20 10:02 10/16/20 10:02 Abnormal Lab Results - Last 24 Hours (Table) 10/16/20 10/16/20 10/16/20 Range/Units 00:00 00:00 00:00 Lymphocytes # 0.5 L (1.0-4.8) k/uL PT 22.8 H (9.0-12.0) sec INR 2.3 H (<1.2) APTT 35.8 H (22.0-30.0) sec Sodium (137-145) mmol/L BUN (9-20) mg/dL Glucose (74-99) mg/dL POC Glucose (mg/dL) (75-99) mg/dL Troponin I (0.000-0.034) ng/mL Urine Blood Trace H (Negative) Urine RBC 6 H (0-5) /hpf Urine WBC 39 H (0-5) /hpf Amorphous Sediment Rare H (None) /hpf Hyaline Casts 4 H (0-2) /lpf Urine Mucus Rare H (None) /hpf 10/16/20 10/16/20 10/16/20 Range/Units 00:00 07:05 07:30 Lymphocytes # (1.0-4.8) k/uL PT 21.2 H (9.0-12.0) sec INR 2.07 H (<1.2) APTT (22.0-30.0) sec Sodium 136 L (137-145) mmol/L BUN (9-20) mg/dL Glucose 109 H (74-99) mg/dL POC Glucose (mg/dL) 177 H (75-99) mg/dL Troponin I (0.000-0.034) ng/mL Urine Blood (Negative) Urine RBC (0-5) /hpf Urine WBC (0-5) /hpf Amorphous Sediment (None) /hpf Hyaline Casts (0-2) /lpf Urine Mucus (None) /hpf 10/16/20 10/16/20 10/16/20 Range/Units 10:00 10:02 10:02 Lymphocytes # 0.4 L (1.0-4.8) k/uL PT (9.0-12.0) sec INR (<1.2) APTT (22.0-30.0) sec Sodium (137-145) mmol/L BUN 21 H (9-20) mg/dL Glucose 189 H (74-99) mg/dL POC Glucose (mg/dL) (75-99) mg/dL Troponin I 0.035 H* (0.000-0.034) ng/mL Urine Blood (Negative) Urine RBC (0-5) /hpf Urine WBC (0-5) /hpf Amorphous Sediment (None) /hpf Hyaline Casts (0-2) /lpf Urine Mucus (None) /hpf 10/16/20 Range/Units 11:32 Lymphocytes # (1.0-4.8) k/uL PT (9.0-12.0) sec INR (<1.2) APTT (22.0-30.0) sec Sodium (137-145) mmol/L BUN (9-20) mg/dL Glucose (74-99) mg/dL POC Glucose (mg/dL) 177 H (75-99) mg/dL Troponin I (0.000-0.034) ng/mL Urine Blood (Negative) Urine RBC (0-5) /hpf Urine WBC (0-5) /hpf Amorphous Sediment (None) /hpf Hyaline Casts (0-2) /lpf Urine Mucus (None) /hpf Microbiology - Last 24 Hours (Table) 10/16/20 00:00 Urine Culture - Preliminary Urine,Clean Catch Diabetes panel 10/16/20 10/16/20 Range/Units 00:00 10:02 Sodium 136 L 138 (137-145) mmol/L Potassium 4.1 4.5 (3.5-5.1) mmol/L Chloride 103 103 (98-107) mmol/L Carbon Dioxide 27 29 (22-30) mmol/L BUN 16 21 H (9-20) mg/dL Creatinine 1.18 0.98 (0.66-1.25) mg/dL Glucose 109 H 189 H (74-99) mg/dL Calcium 8.8 8.7 (8.4-10.2) mg/dL AST 34 26 (17-59) U/L ALT 18 18 (4-49) U/L Alkaline Phosphatase 78 74 (38-126) U/L Total Protein 6.6 6.3 (6.3-8.2) g/dL Albumin 3.8 3.6 (3.5-5.0) g/dL Calcium panel 10/16/20 10/16/20 Range/Units 00:00 10:02 Calcium 8.8 8.7 (8.4-10.2) mg/dL Albumin 3.8 3.6 (3.5-5.0) g/dL Pituitary panel 10/16/20 10/16/20 Range/Units 00:00 10:02 Sodium 136 L 138 (137-145) mmol/L Potassium 4.1 4.5 (3.5-5.1) mmol/L Chloride 103 103 (98-107) mmol/L Carbon Dioxide 27 29 (22-30) mmol/L BUN 16 21 H (9-20) mg/dL Creatinine 1.18 0.98 (0.66-1.25) mg/dL Glucose 109 H 189 H (74-99) mg/dL Calcium 8.8 8.7 (8.4-10.2) mg/dL Adrenal panel 10/16/20 10/16/20 Range/Units 00:00 10:02 Sodium 136 L 138 (137-145) mmol/L Potassium 4.1 4.5 (3.5-5.1) mmol/L Chloride 103 103 (98-107) mmol/L Carbon Dioxide 27 29 (22-30) mmol/L BUN 16 21 H (9-20) mg/dL Creatinine 1.18 0.98 (0.66-1.25) mg/dL Glucose 109 H 189 H (74-99) mg/dL Calcium 8.8 8.7 (8.4-10.2) mg/dL Total Bilirubin 1.0 0.6 (0.2-1.3) mg/dL AST 34 26 (17-59) U/L ALT 18 18 (4-49) U/L Alkaline Phosphatase 78 74 (38-126) U/L Total Protein 6.6 6.3 (6.3-8.2) g/dL Albumin 3.8 3.6 (3.5-5.0) g/dL - Imaging Chest x-ray: report reviewed, image reviewed EKG: image reviewed Assessment and Plan Assessment: 1. Multivessel coronary artery disease 2. Elevated troponin on admission 3. Chronic obstructive pulmonary disease, oxygen use 4. Diastolic congestive heart failure, exacerbation 5. History of tobacco dependence, quit smoking 1 year ago 6. Obstructive sleep apnea with home CPAP use 7. History of bilateral lower extremity DVT and pulmonary embolus, on Coumadin for anticoagulation therapy 8. Benign prostatic hypertrophy 9. History of hypertension 10. Hyperlipidemia 11. History of frequent urinary tract infections 12. Bipolar disorder/depression 13. Anxiety 14. Dementia Plan: The patient was seen and examined at his bedside on the cardiac stepdown unit. His chart and diagnostics were reviewed. His taste was discussed in detail with Dr. Seth Ward from cardiothoracic surgery. The patient was seen by Dr. Mcdonough in the office along with the patient's niece on 10/06/2020. Dr. Mcdonough had a lengthy discussion with the patient and his niece, there is some concerns about his pulmonary status and also concerns about his anxiety/depression with limited visitation hours at this time post surgery. The patient is scheduled with Dr. Mar on 10/26/2020 for pulmonary workup with full pulmonary function test and for pulmonary clearance for myocardial revascularization surgery. Recommendations are to continue to maximize medical therapy with aspirin, statin and beta blockers. Awaiting pulmonary pulmonary clearance. This was all discussed with the patient and his niece Shea who is in agreement with the plan. The patient is to follow-up with Dr. Jhonatan Mcdonough on an outpatient basis as scheduled after the patient has been seen by Dr. Mar in the office 10/26/2020. Medical management other comorbidities per primary care service. Thank you Dr. Denise for this consult, please call cardiothoracic surgery service for any further questions. Time with Patient: Greater than 30 <Seth Ward - Last Filed: 10/20/20 10:08> Surgical - Exam Vital Signs Temp Pulse Resp BP Pulse Ox 101.7 F H 101 H 26 H 160/89 94 L 10/15/20 23:16 10/15/20 23:16 10/15/20 23:16 10/15/20 23:16 10/15/20 23:16 Results - Labs 10/19/20 09:16 10/19/20 09:16 Abnormal Lab Results - Last 24 Hours (Table) 10/19/20 10/19/20 10/19/20 Range/Units 09:16 09:16 09:16 WBC 13.3 H (3.8-10.6) k/uL Neutrophils # 12.0 H (1.3-7.7) k/uL Lymphocytes # 0.6 L (1.0-4.8) k/uL PT 25.3 H (9.0-12.0) sec INR 2.6 H (<1.2) Chloride 96 L (98-107) mmol/L Carbon Dioxide 35 H (22-30) mmol/L BUN 34 H (9-20) mg/dL Glucose 162 H (74-99) mg/dL POC Glucose (mg/dL) (75-99) mg/dL 10/19/20 10/19/20 10/19/20 Range/Units 11:55 16:36 20:17 WBC (3.8-10.6) k/uL Neutrophils # (1.3-7.7) k/uL Lymphocytes # (1.0-4.8) k/uL PT (9.0-12.0) sec INR (<1.2) Chloride (98-107) mmol/L Carbon Dioxide (22-30) mmol/L BUN (9-20) mg/dL Glucose (74-99) mg/dL POC Glucose (mg/dL) 171 H 158 H 159 H (75-99) mg/dL 10/20/20 Range/Units 06:08 WBC (3.8-10.6) k/uL Neutrophils # (1.3-7.7) k/uL Lymphocytes # (1.0-4.8) k/uL PT (9.0-12.0) sec INR (<1.2) Chloride (98-107) mmol/L Carbon Dioxide (22-30) mmol/L BUN (9-20) mg/dL Glucose (74-99) mg/dL POC Glucose (mg/dL) 162 H (75-99) mg/dL Microbiology - Last 24 Hours (Table) 10/16/20 00:00 Blood Culture - Preliminary Blood No Growth after 96 hours Diabetes panel 10/19/20 Range/Units 09:16 Sodium 139 (137-145) mmol/L Potassium 3.7 (3.5-5.1) mmol/L Chloride 96 L (98-107) mmol/L Carbon Dioxide 35 H (22-30) mmol/L BUN 34 H (9-20) mg/dL Creatinine 1.00 (0.66-1.25) mg/dL Glucose 162 H (74-99) mg/dL Calcium 8.9 (8.4-10.2) mg/dL Calcium panel 10/19/20 Range/Units 09:16 Calcium 8.9 (8.4-10.2) mg/dL Pituitary panel 10/19/20 Range/Units 09:16 Sodium 139 (137-145) mmol/L Potassium 3.7 (3.5-5.1) mmol/L Chloride 96 L (98-107) mmol/L Carbon Dioxide 35 H (22-30) mmol/L BUN 34 H (9-20) mg/dL Creatinine 1.00 (0.66-1.25) mg/dL Glucose 162 H (74-99) mg/dL Calcium 8.9 (8.4-10.2) mg/dL Adrenal panel 10/19/20 Range/Units 09:16 Sodium 139 (137-145) mmol/L Potassium 3.7 (3.5-5.1) mmol/L Chloride 96 L (98-107) mmol/L Carbon Dioxide 35 H (22-30) mmol/L BUN 34 H (9-20) mg/dL Creatinine 1.00 (0.66-1.25) mg/dL Glucose 162 H (74-99) mg/dL Calcium 8.9 (8.4-10.2) mg/dL Assessment and Plan Plan: I have seen and examined the patient and agree with the assessment and plan as documented by the nurse practitioner
[2020-10-16 17:26] LABS: Glucose,Whole Blood 170 mg/dL (75-99)
[2020-10-16] MEDS ORDERED: WARFARIN 5 MG TAB PO SCH (18:00)
[2020-10-16] MEDS: WARFARIN 5 MG TAB PO SCH (18:04)
[2020-10-16 20:08] LABS: Glucose,Whole Blood 163 mg/dL (75-99)
[2020-10-16] MEDS: ATORVASTATIN 40 MG TAB PO SCH (20:15)
[2020-10-16] MEDS: LOSARTAN 25 MG TAB PO SCH (20:15)
[2020-10-17 06:13] LABS: Glucose,Whole Blood 179 mg/dL (75-99)
[2020-10-17] MEDS: methylPREDNISolone SOD SUCCI 125 MG/2 ML VIAL IV SCH ×4 (06:17→23:46)
[2020-10-17] MEDS: INSULIN ASPART (NovoLOG) 100 UNIT/ML VIAL SQ SCH ×4 (06:18→20:42)
[2020-10-17 06:51] LABS: Basophils % (A) 0 %; Eosinophils # (A) 0.1 k/uL (0-0.7); Eosinophils % (A) 1 %; HCT 42.9 % (39.0-53.0); HGB 14.4 gm/dL (13.0-17.5); Lymphocytes # (A) 0.6 k/uL (1.0-4.8); Lymphocytes % (A) 5 %; MCHC 33.6 g/dL (31.0-37.0); MCV 95.4 fL (80.0-100.0); Mean Platelet Volume 7.7; Monocytes # (A) 0.3 k/uL (0-1.0); Monocytes % (A) 3 %; Neutrophils # (A) 9.2 k/uL (1.3-7.7); Neutrophils % (A) 90 %; Platelet Count 168 k/uL (150-450); RDW 13.7 % (11.5-15.5); WBC 10.2 k/uL (3.8-10.6)
[2020-10-17 06:58] LABS: INR 2.1 (<1.2); Prothrombin Time 20.9 sec (9.0-12.0)
[2020-10-17] MEDS: METOPROLOL TARTRATE 12.5 MG TAB PO SCH (09:00)
[2020-10-17] MEDS: LORATADINE 10 MG TAB PO SCH (09:00)
[2020-10-17] MEDS: ASPIRIN 81 MG PO SCH (09:00)
[2020-10-17] MEDS: IPRATROPIUM-ALBUTEROL 3 ML NEB INHALATION SCH ×4 (09:08→19:45)
[2020-10-17 12:44] LABS: Glucose,Whole Blood 172 mg/dL (75-99)
--- NOTE | 2020-10-17 13:49 | PN ---
PROGRESS NOTE Mr. Gottlieb has history of CAD with left main disease, was seen by cardiac surgery. He came to the hospital with what seems to be COPD with exacerbation, but he is doing better. Has no chest discomfort. He has very mild troponin elevation, does not suggest any myocardial injury. I am recommending that we continue current medications, optimize his pulmonary status, increase activity and he can be discharged and follow up with cardiac surgery as an outpatient as scheduled. His vital signs are stable. There is JVD of 1 cm. Blood pressure is 130/70, pulse rate is about 70 per minute. He is in sinus rhythm with PACs. Patient also has history of pulmonary embolism and is currently anticoagulated. He is resting comfortably without symptoms. I am recommending that we continue current medical regimen, optimize his pulmonary status and he can be discharged and follow up with Dr. Mcdonough for cardiac surgery and also with Dr. Cristina in the office. Physical exam: While there are no new significant findings, he has diminished air entry with scattered rhonchi but overall air entry is actually better. INR is 2.1. Plan is to continue current medications and there is also a question of UTI and he is on antibiotics and this will be continued. The patient can be discharged and will follow up with Dr. Cristina and Dr. Mcdonough. The same medical regimen is advised at this time. MMODL / IJN: [id number] /
--- NOTE | 2020-10-17 15:09 | P.PN ---
Subjective Progress Note Date: 10/17/20 Principal diagnosis: Acute on chronic hypoxemic respiratory failure secondary to COPD and diastolic congestive heart failure exacerbation This is a very pleasant 75-year-old gentleman who follows with Dr. Alvin Mott as his primary care provider. 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 Most recent CT of the chest done in May 2020 showed complete clearing of the pulmonary emboli. Follows with Dr. Boyd. The patient also has chronic obstructive pulmonary disease with an FEV1 value 55% of predicted. He is chronically on oxygen at 2 L/m as needed. He is on Advair and DuoNeb inhalations. He does have a history of obstructive sleep apnea and is on APAP with a minimum pressure of 8 and maximum pressure of 16 with a C-Flex of 3. He follows with Dr. Mar in our office for the same. He presented to the emergency room last night with complaints of increasing fatigue, shortness of breath, cough or congestion. He also felt as though he had a fever. He did utilize his nebulized treatments without much improvement. He was also having some chest discomfort. Chest x-ray revealed evidence of cardiomegaly as well as underlying emphysema. White count 5.1. Hemoglobin 14.5. Leukocyte 0.4. INR 2.07. Sodium 138. Potassium 4.5. Creatinine 0.98. Troponin 0.035. ProBNP 996. Influenza not detected. Florez virus not detected. The patient is seen today 10/17/2020 in follow-up on the selective care unit. He is currently sitting up in a chair at the bedside. Awake and alert in no acute distress. Breathing a bit easier today compared to yesterday. He is maintaining O2 saturation in the 90s on 2 L/m per nasal cannula. Afebrile. Hemodynamically stable. Blood culture reveals no growth. Urine culture reveals no growth. White count 10.2. Hemoglobin 14.4. Creatinine INR 2.1. He remains on bronchodilators, ceftriaxone, IV Solu-Medrol. Anticoagulated with warfarin. Objective - Vital Signs Vital signs: Vital Signs Temp 97.0 F L 10/17/20 08:00 Pulse 67 10/17/20 08:00 Resp 18 10/17/20 04:00 BP 150/83 10/17/20 08:00 Pulse Ox 94 L 10/17/20 08:00 Intake & Output 10/16/20 10/17/20 10/17/20 18:59 06:59 18:59 Intake Total 240 580 Output Total 300 Balance 240 -300 580 Weight 120.5 kg Intake: Oral 240 580 Output: Urine 300 Other: Voiding Method Urinal Urinal # Voids 2 2 - Exam GENERAL EXAM: Alert, pleasant 75-year-old obese male patient, on 2 L nasal cannula with O2 saturation 94%, comfortable in no apparent distress. HEAD: Normocephalic. EYES: Normal reaction of pupils, equal size. NOSE: Clear with pink turbinates. THROAT: No erythema or exudates. NECK: No masses, no JVD. CHEST: No chest wall deformity. LUNGS: Equal air entry with faint end expiratory wheeze, posterior crackles, diminished. CVS: S1 and S2 normal with no audible murmur, regular rhythm. ABDOMEN: No hepatosplenomegaly, normal bowel sounds, no guarding or rigidity. SPINE: No scoliosis or deformity SKIN: No rashes CENTRAL NERVOUS SYSTEM: No focal deficits, tone is normal in all 4 extremities. EXTREMITIES: Changes of chronic venous stasis. There is 1-2+ peripheral edema. No clubbing, no cyanosis. Peripheral pulses are intact. - Labs CBC & Chem 7: 10/17/20 06:30 10/16/20 10:02 Labs: Abnormal Lab Results - Last 24 Hours (Table) 10/16/20 10/16/20 10/17/20 Range/Units 17:03 20:06 06:11 Neutrophils # (1.3-7.7) k/uL Lymphocytes # (1.0-4.8) k/uL PT (9.0-12.0) sec INR (<1.2) POC Glucose (mg/dL) 170 H 163 H 179 H (75-99) mg/dL 10/17/20 10/17/20 10/17/20 Range/Units 06:30 06:30 12:14 Neutrophils # 9.2 H (1.3-7.7) k/uL Lymphocytes # 0.6 L (1.0-4.8) k/uL PT 20.9 H (9.0-12.0) sec INR 2.1 H (<1.2) POC Glucose (mg/dL) 172 H (75-99) mg/dL Microbiology - Last 24 Hours (Table) 10/16/20 00:00 Urine Culture - Final Urine,Clean Catch 10/16/20 00:00 Blood Culture - Preliminary Blood No Growth after 24 hours Assessment and Plan Assessment: 1 Acute on chronic hypoxemic respiratory failure secondary to an acute exacerbation of chronic obstructive pulmonary disease and acute exacerbation of diastolic congestive heart failure 2 Chronic tobacco dependence of greater than 45 years, quit approximately a year and half ago 3 Troponin leak 4 History of PE/DVT, unprovoked, on warfarin, therapeutic 5 Morbid obesity 6 Obstructive sleep apnea on APAP in the outpatient setting minimum pressure of 8 and maximum pressure of 16 with a C-flex of 3 7 Benign prostatic hyperplasia 8 History of frequent urinary tract infections 9 Hypertension 10 Hyperlipidemia 11 Bipolar disorder 12 Chronic back pain Plan: The patient was seen and evaluated by Dr. Mar Continue with bronchodilators, IV Solu-Medrol Continue warfarin Continue empiric antibiotics for now We'll continue to follow and make further recommendations based on his clinical status I, the cosigning physician, performed a history & physical examination of the patient. Lungs sounds faint end expiratory wheeze, posterior crackles, diminished. Maintaining good O2 saturations in the 90s on 2 L/m per nasal cannula. I discussed the assessment and plan of care with my nurse practitioner, Nara Gregory. I attest to the above consultation as dictated by her.
[2020-10-17 16:58] LABS: Glucose,Whole Blood 186 mg/dL (75-99)
[2020-10-17] MEDS: WARFARIN 5 MG TAB PO SCH (17:40)
[2020-10-17 20:35] LABS: Glucose,Whole Blood 171 mg/dL (75-99)
[2020-10-17] MEDS: LOSARTAN 25 MG TAB PO SCH (20:42)
[2020-10-17] MEDS: ATORVASTATIN 40 MG TAB PO SCH (20:42)
[2020-10-18] MEDS: IPRATROPIUM-ALBUTEROL 3 ML NEB INHALATION PRN (01:16)
[2020-10-18] MEDS: ALPRAZolam 0.25 MG TAB PO PRN ×3 (03:04→20:20)
[2020-10-18 04:22] LABS: Glucose,Whole Blood 226 mg/dL (75-99)
[2020-10-18 07:02] LABS: Glucose,Whole Blood 148 mg/dL (75-99)
[2020-10-18] MEDS: methylPREDNISolone SOD SUCCI 125 MG/2 ML VIAL IV SCH ×4 (07:03→22:18)
[2020-10-18] MEDS: INSULIN ASPART (NovoLOG) 100 UNIT/ML VIAL SQ SCH ×4 (07:03→22:17)
[2020-10-18] MEDS: IPRATROPIUM-ALBUTEROL 3 ML NEB INHALATION SCH ×5 (07:22→20:14)
[2020-10-18] MEDS: METOPROLOL TARTRATE 12.5 MG TAB PO SCH (07:41)
[2020-10-18] MEDS: LORATADINE 10 MG TAB PO SCH (07:41)
[2020-10-18] MEDS: ASPIRIN 81 MG PO SCH (07:41)
[2020-10-18 07:46] LABS: Basophils % (A) 0 %; Eosinophils # (A) 0.1 k/uL (0-0.7); Eosinophils % (A) 1 %; HCT 46.6 % (39.0-53.0); HGB 14.8 gm/dL (13.0-17.5); Lymphocytes # (A) 0.6 k/uL (1.0-4.8); Lymphocytes % (A) 4 %; MCH 30.6 pg (25.0-35.0); MCHC 31.8 g/dL (31.0-37.0); MCV 96.1 fL (80.0-100.0); Monocytes # (A) 0.8 k/uL (0-1.0); Monocytes % (A) 5 %; Neutrophils # (A) 13.6 k/uL (1.3-7.7); Neutrophils % (A) 90 %; Platelet Count 201 k/uL (150-450); RBC 4.85 m/uL (4.30-5.90); RDW 14.1 % (11.5-15.5); WBC 15.1 k/uL (3.8-10.6)
[2020-10-18 08:06] LABS: INR 2.3 (<1.2); Prothrombin Time 22.8 sec (9.0-12.0)
--- NOTE | 2020-10-18 10:42 | P.PN ---
Subjective Progress Note Date: 10/17/20 Principal diagnosis: Acute COPD exacerbation Triple-vessel coronary artery disease. 75-year-old male with significant history of COPD presented to the emergency department with complaint of fever, chills, congestion, cough, and generalized malaise. Patient attempted to use nebulizer at home to minimize shortness of breath without improvement. Patient denies chest pain, abdominal pain, nausea, vomiting, diarrhea, back pain, or additional symptoms. Patient had extensive diagnostic workup in the emergency roomrevealing COPD exacerbation with urinary tract infection. 10/17/2020 Patient is currently sitting the chair and is still short of breath. Awake alert oriented 3. Breathing is easier compared to yesterday. Patient is on oxygen via nasal cannula 2 L. Patient is being continued on IV steroids and breathing treatments and antibiotics. Patient was also seen by CT surgery and recommended outpatient follow-up for surgical evaluation due to triple-vessel disease. Patient has been afebrile. Blood cultures have been negative so far. Laboratory data showed the visit 10.2, hemoglobin 14.1 and platelets 168, INR 2.1 blood sugar is controlled. Current medications reviewed. Objective - Vital Signs Vital signs: Vital Signs Temp 98.0 F 10/17/20 20:00 Pulse 57 L 10/17/20 20:00 Resp 24 10/17/20 20:00 BP 146/71 10/17/20 20:00 Pulse Ox 95 10/17/20 20:00 Intake & Output 10/17/20 10/17/20 10/18/20 06:59 18:59 06:59 Intake Total 920 Output Total 300 500 150 Balance -300 420 -150 Weight 120.5 kg Intake: Oral 920 Output: Urine 300 500 150 Other: Voiding Method Urinal Urinal # Voids 2 1 - Exam PHYSICAL EXAMINATION: Patient is sitting in a chair and appears to be in short of breath, awake alert and oriented.. HEENT: Normocephalic. Neck is supple. Pupils reactive. Nostrils clear. Oral cavity is moist. Ears reveal no drainage. Neck reveals no JVD, carotid bruits, or thyromegaly. CHEST EXAMINATION: Trachea is central. Symmetrical expansion. Bilateral diminished air entry and scattered rhonchi and wheezing. CARDIAC: Normal S1, S2 with no gallops. No murmurs ABDOMEN: Soft. Bowel sounds normal. No organomegaly. No abdominal bruits. Extremities: Trace edema. No clubbing or cyanosis Neurologically awake, alert, oriented x3 with well-coordinated movements. No focal deficits noted Skin: No rash or skin lesions. Psychiatric: Coperative. Nonsuicidal Musculoskeletal: No joint swelling or deformity. Normal range of motion. - Labs CBC & Chem 7: 10/18/20 06:55 10/16/20 10:02 Labs: Abnormal Lab Results - Last 24 Hours (Table) 10/17/20 10/17/20 10/17/20 Range/Units 06:11 06:30 06:30 Neutrophils # 9.2 H (1.3-7.7) k/uL Lymphocytes # 0.6 L (1.0-4.8) k/uL PT 20.9 H (9.0-12.0) sec INR 2.1 H (<1.2) POC Glucose (mg/dL) 179 H (75-99) mg/dL 10/17/20 10/17/20 10/17/20 Range/Units 12:14 16:55 20:33 Neutrophils # (1.3-7.7) k/uL Lymphocytes # (1.0-4.8) k/uL PT (9.0-12.0) sec INR (<1.2) POC Glucose (mg/dL) 172 H 186 H 171 H (75-99) mg/dL Microbiology - Last 24 Hours (Table) 10/16/20 00:00 Urine Culture - Final Urine,Clean Catch 10/16/20 00:00 Blood Culture - Preliminary Blood No Growth after 24 hours Assessment and Plan Assessment: Acute COPD exacerbationconsultation with pulmonology for recommendations and treatment options; continue corticosteroids and breathing treatments acute on chronic hypoxic respiratory failure secondary to COPD exacerbation and CHF Acute on chronic CHF with diastolic dysfunction. Mildly elevated troponin level. 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 Obstructive sleep apnea on CPAP at home Multivessel coronary artery disease. Outpatient follow-up with CT surgery was recommended. Urinary tract infectioncontinue IV antibiotics Hypertension Hyperlipidemia Anxiety Depression Bipolar Chronic low back pain DVT prophylaxis patient is only on Coumadin with therapeutic level. Plan: patient will be continued on oxygen therapy, antibiotics and IV steroids and breathing treatments. Continue with Coumadin dosing. Pulmonary and CT surgery has seen the patient. Patient will need outpatient follow-up for further workup for possible CT surgery. Time with Patient: Greater than 30
[2020-10-18] MEDS ORDERED: FUROSEMIDE 10 MG/ML 4 ML VIAL IV STA (11:05)
[2020-10-18 11:36] LABS: Glucose,Whole Blood 160 mg/dL (75-99)
--- NOTE | 2020-10-18 12:05 | XR ---
EXAMINATION TYPE: XR chest 1V portable DATE OF EXAM: 10/18/2020 COMPARISON: 1121 HISTORY: Shortness of breath TECHNIQUE: Single frontal view of the chest is obtained. FINDINGS: Heart is enlarged and there is hyperinflation suggestive of COPD. Arthropathy of the shoul ders. No overt failure. Subsegmental changes at the left lung base. IMPRESSION: COPD and cardiomegaly with left basilar infiltrate.
--- NOTE | 2020-10-18 14:50 | P.PN ---
Subjective Progress Note Date: 10/18/20 Principal diagnosis: Acute on chronic hypoxemic respiratory failure secondary to COPD and diastolic congestive heart failure exacerbation This is a very pleasant 75-year-old gentleman who follows with Dr. Avlin Mott as his primary care provider. 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 Most recent CT of the chest done in May 2020 showed complete clearing of the pulmonary emboli. Follows with Dr. Boyd. The patient also has chronic obstructive pulmonary disease with an FEV1 value 55% of predicted. He is chronically on oxygen at 2 L/m as needed. He is on Advair and DuoNeb inhalations. He does have a history of obstructive sleep apnea and is on APAP with a minimum pressure of 8 and maximum pressure of 16 with a C-Flex of 3. He follows with Dr. Mar in our office for the same. He presented to the emergency room last night with complaints of increasing fatigue, shortness of breath, cough or congestion. He also felt as though he had a fever. He did utilize his nebulized treatments without much improvement. He was also having some chest discomfort. Chest x-ray revealed evidence of cardiomegaly as well as underlying emphysema. White count 5.1. Hemoglobin 14.5. Leukocyte 0.4. INR 2.07. Sodium 138. Potassium 4.5. Creatinine 0.98. Troponin 0.035. ProBNP 996. Influenza not detected. Florez virus not detected. The patient is seen today 10/17/2020 in follow-up on the selective care unit. He is currently sitting up in a chair at the bedside. Awake and alert in no acute distress. Breathing a bit easier today compared to yesterday. He is maintaining O2 saturation in the 90s on 2 L/m per nasal cannula. Afebrile. Hemodynamically stable. Blood culture reveals no growth. Urine culture reveals no growth. White count 10.2. Hemoglobin 14.4. Creatinine INR 2.1. He remains on bronchodilators, ceftriaxone, IV Solu-Medrol. Anticoagulated with warfarin. The patient is seen today 10/18/2020 in follow-up on selective care unit. He is currently resting fairly comfortably in bed. Awake and alert in no acute distress. He is still maintaining O2 saturations in the mid 90s on 2 L/m per nasal cannula. He is still quite dyspneic with minimal exertion. He is afebrile. Blood cultures reveal no growth. Urine culture revealed no growth. White count 15.1. Hemoglobin 14.8. INR 2.3. Chest x-ray was obtained and revealed evidence of COPD and cardiomegaly with left basilar infiltrate. Objective - Vital Signs Vital signs: Vital Signs Temp 98.1 F 10/18/20 11:48 Pulse 69 10/18/20 11:48 Resp 32 H 10/18/20 11:48 BP 117/73 10/18/20 11:48 Pulse Ox 95 10/18/20 11:48 Intake & Output 10/17/20 10/18/20 10/18/20 18:59 06:59 18:59 Intake Total 920 240 Output Total 741 727 4581 Balance 420 500 -9434 Weight 118.3 kg Intake: Oral 920 240 Output: Urine 813 652 6922 Other: Voiding Method Urinal Urinal # Voids 1 3 - Exam GENERAL EXAM: Alert, pleasant 75-year-old obese male patient, on 2 L nasal cannula with O2 saturation 94%, comfortable in no apparent distress. HEAD: Normocephalic. EYES: Normal reaction of pupils, equal size. NOSE: Clear with pink turbinates. THROAT: No erythema or exudates. NECK: No masses, no JVD. CHEST: No chest wall deformity. LUNGS: Equal air entry with faint end expiratory wheeze, posterior crackles, left greater than right, diminished. CVS: S1 and S2 normal with no audible murmur, regular rhythm. ABDOMEN: No hepatosplenomegaly, normal bowel sounds, no guarding or rigidity. SPINE: No scoliosis or deformity SKIN: No rashes CENTRAL NERVOUS SYSTEM: No focal deficits, tone is normal in all 4 extremities. EXTREMITIES: Changes of chronic venous stasis. There is 1-2+ peripheral edema. No clubbing, no cyanosis. Peripheral pulses are intact. - Labs CBC & Chem 7: 10/18/20 06:55 10/16/20 10:02 Labs: Abnormal Lab Results - Last 24 Hours (Table) 10/17/20 10/17/20 10/18/20 Range/Units 16:55 20:33 04:08 WBC (3.8-10.6) k/uL Neutrophils # (1.3-7.7) k/uL Lymphocytes # (1.0-4.8) k/uL PT (9.0-12.0) sec INR (<1.2) POC Glucose (mg/dL) 186 H 171 H 226 H (75-99) mg/dL 10/18/20 10/18/20 10/18/20 Range/Units 06:55 06:55 07:00 WBC 15.1 H (3.8-10.6) k/uL Neutrophils # 13.6 H (1.3-7.7) k/uL Lymphocytes # 0.6 L (1.0-4.8) k/uL PT 22.8 H (9.0-12.0) sec INR 2.3 H (<1.2) POC Glucose (mg/dL) 148 H (75-99) mg/dL 10/18/20 Range/Units 11:35 WBC (3.8-10.6) k/uL Neutrophils # (1.3-7.7) k/uL Lymphocytes # (1.0-4.8) k/uL PT (9.0-12.0) sec INR (<1.2) POC Glucose (mg/dL) 160 H (75-99) mg/dL Microbiology - Last 24 Hours (Table) 10/16/20 00:00 Blood Culture - Preliminary Blood No Growth after 48 hours 10/16/20 00:00 Urine Culture - Final Urine,Clean Catch Assessment and Plan Assessment: 1 Acute on chronic hypoxemic respiratory failure secondary to an acute exacerbation of chronic obstructive pulmonary disease and acute exacerbation of diastolic congestive heart failure 2 Chronic tobacco dependence of greater than 45 years, quit approximately a year and half ago 3 Troponin leak 4 History of PE/DVT, unprovoked, on warfarin, therapeutic 5 Morbid obesity 6 Obstructive sleep apnea on APAP in the outpatient setting minimum pressure of 8 and maximum pressure of 16 with a C-flex of 3 7 Benign prostatic hyperplasia 8 History of frequent urinary tract infections 9 Hypertension 10 Hyperlipidemia 11 Bipolar disorder 12 Chronic back pain Plan: The patient was seen and evaluated by Dr. Mar Chest x-ray and labs reviewed Lasix 40 mg IVP 1 Continue with bronchodilators, IV Solu-Medrol Continue warfarin Continue empiric antibiotics for now We'll continue to follow and make further recommendations based on his clinical status I, the cosigning physician, performed a history & physical examination of the patient. Lungs sounds faint end expiratory wheeze, posterior crackles, diminished. Maintaining good O2 saturations in the 90s on 2 L/m per nasal cannula. I discussed the assessment and plan of care with my nurse practitioner, Nara Gregory. I attest to the above note as dictated by her.
[2020-10-18 16:42] LABS: Glucose,Whole Blood 208 mg/dL (75-99)
[2020-10-18] MEDS: WARFARIN 5 MG TAB PO SCH (17:52)
[2020-10-18] MEDS ORDERED: WARFARIN 2.5 MG TAB PO SCH (18:00)
[2020-10-18] MEDS: LOSARTAN 25 MG TAB PO SCH (20:20)
[2020-10-18] MEDS: ATORVASTATIN 40 MG TAB PO SCH (20:20)
[2020-10-18] MEDS ORDERED: FUROSEMIDE 10 MG/ML 4 ML VIAL IV SCH (21:00)
[2020-10-18 21:20] LABS: Glucose,Whole Blood 180 mg/dL (75-99)
--- NOTE | 2020-10-19 00:07 | P.PN ---
Subjective Progress Note Date: 10/18/20 Principal diagnosis: Acute COPD exacerbation Triple-vessel coronary artery disease. 75-year-old male with significant history of COPD presented to the emergency department with complaint of fever, chills, congestion, cough, and generalized malaise. Patient attempted to use nebulizer at home to minimize shortness of breath without improvement. Patient denies chest pain, abdominal pain, nausea, vomiting, diarrhea, back pain, or additional symptoms. Patient had extensive diagnostic workup in the emergency roomrevealing COPD exacerbation with urinary tract infection. 10/17/2020 Patient is currently sitting the chair and is still short of breath. Awake alert oriented 3. Breathing is easier compared to yesterday. Patient is on oxygen via nasal cannula 2 L. Patient is being continued on IV steroids and breathing treatments and antibiotics. Patient was also seen by CT surgery and recommended outpatient follow-up for surgical evaluation due to triple-vessel disease. Patient has been afebrile. Blood cultures have been negative so far. Laboratory data showed the visit 10.2, hemoglobin 14.1 and platelets 168, INR 2.1 blood sugar is controlled. 10/18/2020. Patient is currently sitting in the chair and is still dyspneic with puffingout air. Patient was given IV Lasix and will be started on Lasix twice daily and assess breathing status. Blood cultures and urine culture showed no growth. Chest x-ray showed COPD and cardiomegaly with left basilar infiltrate.. Pulmonary is on board. Laboratory data showed WBC 15.1, hemoglobin 14.8 and platelets 201 lymphocyte 0.6 INR 2.3 Current medications reviewed. Objective - Vital Signs Vital signs: Vital Signs Temp 97.6 F 10/18/20 16:00 Pulse 66 10/18/20 16:29 Resp 22 10/18/20 16:00 BP 146/93 10/18/20 16:00 Pulse Ox 96 10/18/20 16:00 Intake & Output 10/17/20 10/18/20 10/18/20 18:59 06:59 18:59 Intake Total 920 360 Output Total 049 733 9698 Balance 645 -928 -6582 Weight 118.3 kg Intake: Oral 920 360 Output: Urine 818 861 5886 Other: Voiding Method Urinal Urinal # Voids 1 1 - Exam PHYSICAL EXAMINATION: Patient is sitting in a chair and appears to be in short of breath, awake alert and oriented.. HEENT: Normocephalic. Neck is supple. Pupils reactive. Nostrils clear. Oral cavity is moist. Ears reveal no drainage. Neck reveals no JVD, carotid bruits, or thyromegaly. CHEST EXAMINATION: Trachea is central. Symmetrical expansion. Bilateral diminished air entry and scattered rhonchi and wheezing. CARDIAC: Normal S1, S2 with no gallops. No murmurs ABDOMEN: Soft. Bowel sounds normal. No organomegaly. No abdominal bruits. Extremities: Trace edema. No clubbing or cyanosis Neurologically awake, alert, oriented x3 with well-coordinated movements. No focal deficits noted Skin: No rash or skin lesions. Psychiatric: Coperative. Nonsuicidal Musculoskeletal: No joint swelling or deformity. Normal range of motion. - Labs CBC & Chem 7: 10/18/20 06:55 10/16/20 10:02 Labs: Abnormal Lab Results - Last 24 Hours (Table) 10/17/20 10/17/20 10/18/20 Range/Units 16:55 20:33 04:08 WBC (3.8-10.6) k/uL Neutrophils # (1.3-7.7) k/uL Lymphocytes # (1.0-4.8) k/uL PT (9.0-12.0) sec INR (<1.2) POC Glucose (mg/dL) 186 H 171 H 226 H (75-99) mg/dL 10/18/20 10/18/20 10/18/20 Range/Units 06:55 06:55 07:00 WBC 15.1 H (3.8-10.6) k/uL Neutrophils # 13.6 H (1.3-7.7) k/uL Lymphocytes # 0.6 L (1.0-4.8) k/uL PT 22.8 H (9.0-12.0) sec INR 2.3 H (<1.2) POC Glucose (mg/dL) 148 H (75-99) mg/dL 10/18/20 10/18/20 Range/Units 11:35 16:41 WBC (3.8-10.6) k/uL Neutrophils # (1.3-7.7) k/uL Lymphocytes # (1.0-4.8) k/uL PT (9.0-12.0) sec INR (<1.2) POC Glucose (mg/dL) 160 H 208 H (75-99) mg/dL Microbiology - Last 24 Hours (Table) 10/16/20 00:00 Blood Culture - Preliminary Blood No Growth after 48 hours 10/16/20 00:00 Urine Culture - Final Urine,Clean Catch Assessment and Plan Assessment: Acute COPD exacerbationconsultation with pulmonology for recommendations and treatment options; continue corticosteroids and breathing treatments acute on chronic hypoxic respiratory failure secondary to COPD exacerbation and CHF Acute on chronic CHF with diastolic dysfunction. Mildly elevated troponin level. 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 Obstructive sleep apnea on CPAP at home Multivessel coronary artery disease. Outpatient follow-up with CT surgery was recommended. Urinary tract infectioncontinue IV antibiotics Hypertension Hyperlipidemia Anxiety Depression Bipolar Chronic low back pain DVT prophylaxis patient is only on Coumadin with therapeutic level. Plan: patient will be continued on oxygen therapy, antibiotics and IV steroids and breathing treatments. IV lasix was given. Continue with Coumadin dosing. Pulmonary and CT surgery has seen the patient. Patient will need outpatient follow-up for further workup for possible CT surgery. Time with Patient: Greater than 30
[2020-10-19] MEDS: IPRATROPIUM-ALBUTEROL 3 ML NEB INHALATION PRN (05:33)
[2020-10-19] MEDS: methylPREDNISolone SOD SUCCI 125 MG/2 ML VIAL IV SCH ×4 (06:03→23:47)
[2020-10-19 06:17] LABS: Glucose,Whole Blood 179 mg/dL (75-99)
[2020-10-19] MEDS: INSULIN ASPART (NovoLOG) 100 UNIT/ML VIAL SQ SCH ×4 (06:41→22:00)
[2020-10-19] MEDS: IPRATROPIUM-ALBUTEROL 3 ML NEB INHALATION SCH ×4 (08:30→20:55)
[2020-10-19] MEDS ORDERED: FUROSEMIDE 10 MG/ML 4 ML VIAL IV SCH (09:00)
[2020-10-19] MEDS: LORATADINE 10 MG TAB PO SCH (09:10)
[2020-10-19] MEDS: ASPIRIN 81 MG PO SCH (09:10)
[2020-10-19] MEDS: METOPROLOL TARTRATE 12.5 MG TAB PO SCH (09:11)
--- NOTE | 2020-10-19 09:48 | P.PN ---
Subjective Covering Dr. Mott today on 10/19, he will resume the care of the patient tomorrow This is a pleasant 75-year-old male with significant history of COPD presented to the emergency department with complaint of fever, and cough with dyspnea and respiratory distress, and generalized malaise. Patient found to have acute COPD exacerbation with acute diastolic CHF and there was also questionable urinary tract infection. Patient has been evaluated by pulmonary service, his currently also on Medrol 60 mg as well as Lasix intravenously 40 mg daily. Also he is on Rocephin antibiotic. And aspirin 81 mg and warfarin for his history of PE/DVT. Today he still dyspneic and has prolonged expiration on examination. This WBC jumped to 15k due to steroid. INR is stable at 2.3. And he is saturating 90% on 2 L oxygen via nasal cannula [employer] and cardiothoracic surgery evaluated the patient for his triple- vessel coronary artery disease and surgical team recommended that he follow up with Dr. Mcdonough as an outpatient. Also he has an appointment with Dr. Mcdonough on 09/3040 preop evaluation for his coronary artery disease possible bypass surgery. Patient attempted to use nebulizer at home to minimize shortness of breath without improvement. Patient denies chest pain, abdominal pain, nausea, vomiting, diarrhea, back pain, or additional symptoms. Patient had extensive diagnostic workup in the emergency roomrevealing COPD exacerbation with urinary tract infection. 10/17/2020 Patient is currently sitting the chair and is still short of breath. Awake alert oriented 3. Breathing is easier compared to yesterday. Patient is on oxygen via nasal cannula 2 L. Patient is being continued on IV steroids and breathing treatments and antibiotics. Patient was also seen by CT surgery and recommended outpatient follow-up for surgical evaluation due to triple-vessel disease. Patient has been afebrile. Blood cultures have been negative so far. Laboratory data showed the visit 10.2, hemoglobin 14.1 and platelets 168, INR 2.1 blood sugar is controlled. Review of systems CONSTITUTIONAL: No fever, no malaise, no fatigue. HEENT: No recent visual problems or hearing problems. Denied any sore throat. CARDIOVASCULAR: No orthopnea, PND, no palpitations, no syncope. PULMONARY: No chest wall tenderness, no hemoptysis. GASTROINTESTINAL: No diarrhea, no nausea, no vomiting, no abdominal pain. Normoactive bowel sounds. NEUROLOGICAL: No headaches, no weakness, no numbness. Active Medications Generic Name Dose Route Start Last Admin Trade Name Freq PRN Reason Stop Dose Admin Albuterol/Ipratropium 3 ml 10/16/20 08:00 10/19/20 08:30 Ipratropium-Albuterol 3 Ml Neb INHALATION 3 ml RT-QID ALIREZA Administration Albuterol/Ipratropium 3 ml 10/16/20 02:13 10/19/20 05:33 Ipratropium-Albuterol 3 Ml Neb INHALATION 3 ml RT-Q4H PRN Administration Shortness Of Breath Or Wheezing Alprazolam 0.25 mg 10/18/20 02:54 10/18/20 20:20 Alprazolam 0.25 Mg Tab PO 0.25 mg BID PRN Administration Anxiety Aspirin 81 mg 10/16/20 11:30 10/19/20 09:10 Aspirin 81 Mg PO 81 mg DAILY ALIREZA Administration Atorvastatin Calcium 40 mg 10/16/20 21:00 10/18/20 20:20 Atorvastatin 40 Mg Tab PO 40 mg HS ALIREZA Administration Furosemide 40 mg 10/19/20 09:00 10/19/20 09:12 Furosemide 10 Mg/Ml 4 Ml Vial IV 40 mg DAILY ALIREZA Administration Ceftriaxone Sodium 1 gm/ 50 mls @ 100 mls/hr 10/17/20 02:00 10/19/20 02:11 Sodium Chloride IVPB 100 mls/hr Q24H ALIREZA Administration Insulin Aspart 0 unit 10/16/20 12:30 10/19/20 06:41 Insulin Aspart (Novolog) 100 Unit/Ml Vial SQ 4 unit ACHS ALIREZA Administration Protocol Loratadine 10 mg 10/16/20 09:00 10/19/20 09:10 Loratadine 10 Mg Tab PO 10 mg DAILY ALIREZA Administration Losartan Potassium 25 mg 10/16/20 21:00 10/18/20 20:20 Losartan 25 Mg Tab PO 25 mg HS ALIREZA Administration Methylprednisolone Sodium Succinate 60 mg 10/16/20 06:00 10/19/20 06:03 Methylprednisolone Sod Succi 125 Mg/2 Ml Vial IV 60 mg Q6HR ALIREZA Administration Metoprolol Tartrate 12.5 mg 10/16/20 09:00 10/19/20 09:11 Metoprolol Tartrate 12.5 Mg Tab PO 12.5 mg DAILY ALIREZA Administration Miscellaneous Information 1 each 10/16/20 13:03 Warfarin Per Pharmacy MISCELLANE DIRECTED PRN Per Protocol Protocol Warfarin Sodium 5 mg 10/16/20 18:00 10/18/20 17:52 Warfarin 5 Mg Tab PO 5 mg DAILY@1800 ALIREZA Administration Protocol Objective - Vital Signs Vital signs: Vital Signs Temp 97.9 F 10/19/20 03:42 Pulse 68 10/19/20 08:41 Resp 18 10/19/20 03:42 BP 154/94 10/19/20 03:42 Pulse Ox 93 L 10/19/20 03:42 Intake & Output 10/18/20 10/19/20 10/19/20 18:59 06:59 18:59 Intake Total 600 180 Output Total 1775 675 Balance -1175 -675 180 Weight 112.6 kg Intake: Oral 600 180 Output: Urine 1775 675 Other: Voiding Method Urinal Urinal # Voids 1 - Exam -GENERAL: The patient is alert and oriented x3, not in any acute distress. Obese HEENT: Pupils are round and equally reacting to light. EOMI. No scleral icterus. No conjunctival pallor. Normocephalic, atraumatic. No pharyngeal erythema. No thyromegaly. CARDIOVASCULAR: S1 and S2 present. No murmurs, rubs, or gallops. -PULMONARY: Chest is clear to auscultation, bilateral expiratory wheezing ABDOMEN: Soft, nontender, nondistended, normoactive bowel sounds. No palpable organomegaly. MUSCULOSKELETAL: No joint swelling or deformity. EXTREMITIES: No cyanosis, clubbing, or pedal edema. NEUROLOGICAL: Gross neurological examination did not reveal any focal deficits. SKIN: No rashes. no petechiae. - Labs CBC & Chem 7: 10/18/20 06:55 10/16/20 10:02 Labs: Abnormal Lab Results - Last 24 Hours (Table) 10/18/20 10/18/20 10/18/20 Range/Units 11:35 16:41 21:18 POC Glucose (mg/dL) 160 H 208 H 180 H (75-99) mg/dL 10/19/20 Range/Units 06:16 POC Glucose (mg/dL) 179 H (75-99) mg/dL Microbiology - Last 24 Hours (Table) 10/16/20 00:00 Blood Culture - Preliminary Blood No Growth after 72 hours Assessment and Plan Assessment: Acute COPD exacerbation acute on chronic hypoxic respiratory failure secondary to COPD exacerbation and CHF Acute on chronic CHF with diastolic dysfunction. Mildly elevated troponin level. 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 Obstructive sleep apnea on CPAP at home Multivessel coronary artery disease. Outpatient follow-up with CT surgery Dr. Mcdonough was recommended. Urinary tract infectioncontinue IV antibiotics Hypertension Hyperlipidemia Anxiety Depression Bipolar Chronic low back pain Plan: This is a pleasant 75 years old male who presents with acute COPD and diastolic CHF. Continue with some adrenal 60 mg, continue with Lasix 40 mg IV also he is also on warfarin and aspirin, his INR is therapeutic. Monitor INR, continue his oxygen as needed. Follow-up recommendation by pulmonary, cardiology and cardiothoracic services were following the patient closely Labs and medication were reviewed.. Continue same treatment. Continue with symptomatic treatment. Resume home medication. Monitor lytes and vitals. DVT and GI prophylaxis. Further recommendationsas per clinical course of the patient DVT prophylaxis: Warfarin GI Prophylaxis: Ppi PT/OT: Pending Prognosis is guarded Dr. Mott team will resume the care of the patient tomorrow
[2020-10-19 10:09] LABS: Basophils % (A) 0 %; Eosinophils % (A) 0 %; HCT 49.8 % (39.0-53.0); HGB 16.5 gm/dL (13.0-17.5); Lymphocytes # (A) 0.6 k/uL (1.0-4.8); Lymphocytes % (A) 4 %; MCH 31.4 pg (25.0-35.0); Mean Platelet Volume 7.5; Monocytes # (A) 0.7 k/uL (0-1.0); Monocytes % (A) 5 %; Neutrophils % (A) 90 %; Platelet Count 213 k/uL (150-450); RBC 5.25 m/uL (4.30-5.90); RDW 13.6 % (11.5-15.5); WBC 13.3 k/uL (3.8-10.6)
[2020-10-19 10:21] LABS: Calcium 8.9 mg/dL (8.4-10.2); Potassium 3.7 mmol/L (3.5-5.1)
[2020-10-19 10:25] LABS: INR 2.6 (<1.2); Prothrombin Time 25.3 sec (9.0-12.0)
[2020-10-19 11:57] LABS: Glucose,Whole Blood 171 mg/dL (75-99)
[2020-10-19 16:40] LABS: Glucose,Whole Blood 158 mg/dL (75-99)
--- NOTE | 2020-10-19 17:36 | P.PN ---
Subjective Progress Note Date: 10/19/20 Principal diagnosis: Acute on chronic hypoxic respiratory failure secondary to COPD and acute on chronic diastolic congestive heart failure This is a very pleasant 75-year-old gentleman who follows with Dr. Alvin Mott as his primary care provider. 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 Most recent CT of the chest done in May 2020 showed complete clearing of the pulmonary emboli. Follows with Dr. Boyd. The patient also has chronic obstructive pulmonary disease with an FEV1 value 55% of predicted. He is chronically on oxygen at 2 L/m as needed. He is on Advair and DuoNeb inhalations. He does have a history of obstructive sleep apnea and is on APAP with a minimum pressure of 8 and maximum pressure of 16 with a C-Flex of 3. He follows with Dr. Mar in our office for the same. He presented to the emergency room last night with complaints of increasing fatigue, shortness of breath, cough or congestion. He also felt as though he had a fever. He did utilize his nebulized treatments without much improvement. He was also having some chest discomfort. Chest x-ray revealed evidence of cardiomegaly as well as underlying emphysema. White count 5.1. Hemoglobin 14.5. Leukocyte 0.4. INR 2.07. Sodium 138. Potassium 4.5. Creatinine 0.98. Troponin 0.035. ProBNP 996. Influenza not detected. Florez virus not detected. The patient is seen today 10/17/2020 in follow-up on the selective care unit. He is currently sitting up in a chair at the bedside. Awake and alert in no acute distress. Breathing a bit easier today compared to yesterday. He is maintaining O2 saturation in the 90s on 2 L/m per nasal cannula. Afebrile. Hemodynamically stable. Blood culture reveals no growth. Urine culture reveals no growth. White count 10.2. Hemoglobin 14.4. Creatinine INR 2.1. He remains on bronchodilators, ceftriaxone, IV Solu-Medrol. Anticoagulated with warfarin. The patient is seen today 10/18/2020 in follow-up on selective care unit. He is currently resting fairly comfortably in bed. Awake and alert in no acute distress. He is still maintaining O2 saturations in the mid 90s on 2 L/m per nasal cannula. He is still quite dyspneic with minimal exertion. He is afebrile. Blood cultures reveal no growth. Urine culture revealed no growth. White count 15.1. Hemoglobin 14.8. INR 2.3. Chest x-ray was obtained and revealed evidence of COPD and cardiomegaly with left basilar infiltrat Reevaluated today on 10/19/20, patient is doing well, fairly comfortable, in no distress, improving with treatment of his COPD and diastolic congestive heart failure. Patient is only on 2 L nasal cannula, O2 sats was 92%. INR is therapeutic at 2.6. CBC is relatively normal and basic metabolic profile is normal. Chest x-ray on admission showed COPD, cardiomegaly, and left basilar atelectasis Objective - Vital Signs Vital signs: Vital Signs Temp 98.9 F 10/19/20 08:00 Pulse 56 L 10/19/20 12:00 Resp 18 10/19/20 03:42 BP 113/66 10/19/20 12:00 Pulse Ox 92 L 10/19/20 12:00 Intake & Output 10/18/20 10/19/20 10/19/20 18:59 06:59 18:59 Intake Total 600 420 Output Total 1775 675 100 Balance -1175 -675 320 Weight 112.6 kg Intake: Oral 600 420 Output: Urine 1775 675 100 Other: Voiding Method Urinal Urinal Urinal # Voids 1 1 # Bowel Movements 1 - Exam Physical Exam: Revealed a 75-year-old white male in no distress, pleasant. Head: Atraumatic, normocephalic. HEENT:[Neck is supple.] [No neck masses.] [No thyromegaly.] [No JVD.] Chest: [Symmetrical chest expansion, faint wheezing on forced expiratory maneuver. Diminished breath sounds at the bases. Cardiac Exam: Regular rhythm. Normal S1 and S2, no S3 gallop, no murmur.] Abdomen: [Soft, nontender, no megaly, no rebound, no guarding, normal bowel sounds.] Extremities: [No clubbing, 1+ bipedal edema, no cyanosis.] Good pulses bilaterally Neurological Exam: [No focal neurologic deficit.] Alert and oriented 3. Psychiatric: Normal mood, affect and normal mental status examination. - Labs CBC & Chem 7: 10/19/20 09:16 10/19/20 09:16 Labs: Abnormal Lab Results - Last 24 Hours (Table) 10/18/20 10/19/20 10/19/20 Range/Units 21:18 06:16 09:16 WBC 13.3 H (3.8-10.6) k/uL Neutrophils # 12.0 H (1.3-7.7) k/uL Lymphocytes # 0.6 L (1.0-4.8) k/uL PT (9.0-12.0) sec INR (<1.2) Chloride (98-107) mmol/L Carbon Dioxide (22-30) mmol/L BUN (9-20) mg/dL Glucose (74-99) mg/dL POC Glucose (mg/dL) 180 H 179 H (75-99) mg/dL 10/19/20 10/19/20 10/19/20 Range/Units 09:16 09:16 11:55 WBC (3.8-10.6) k/uL Neutrophils # (1.3-7.7) k/uL Lymphocytes # (1.0-4.8) k/uL PT 25.3 H (9.0-12.0) sec INR 2.6 H (<1.2) Chloride 96 L (98-107) mmol/L Carbon Dioxide 35 H (22-30) mmol/L BUN 34 H (9-20) mg/dL Glucose 162 H (74-99) mg/dL POC Glucose (mg/dL) 171 H (75-99) mg/dL 10/19/20 Range/Units 16:36 WBC (3.8-10.6) k/uL Neutrophils # (1.3-7.7) k/uL Lymphocytes # (1.0-4.8) k/uL PT (9.0-12.0) sec INR (<1.2) Chloride (98-107) mmol/L Carbon Dioxide (22-30) mmol/L BUN (9-20) mg/dL Glucose (74-99) mg/dL POC Glucose (mg/dL) 158 H (75-99) mg/dL Microbiology - Last 24 Hours (Table) 10/16/20 00:00 Blood Culture - Preliminary Blood No Growth after 72 hours Assessment and Plan Assessment: Impression: Acute on chronic hypoxic respiratory failure secondary to acute exacerbation of COPD and acute exacerbation of diastolic congestive heart failure History of unprovoked DVT and pulmonary embolism, on Coumadin. History of morbid obesity. Obstructive sleep apnea syndrome on APap on outpatient basis. Minimum pressure of 8 and maximum 16 with c flex 3. Benign essential hypertension. Benign prostatic hyperplasia. History of frequent urinary tract infection. Bipolar disorder. Chronic back pain. Recommendation: Continue present treatment plan including diuretics, Continue bronchodilators, Continue Coumadin since the patient had previous history of thrombolic embolic d isease, unprovoked. Continue empiric antibiotics. Consider discharge planning in the next 24-48 hours. Time with Patient: Less than 30
[2020-10-19] MEDS ORDERED: WARFARIN 2.5 MG TAB PO ONE (18:00)
[2020-10-19] MEDS: LOSARTAN 25 MG TAB PO SCH (20:02)
[2020-10-19] MEDS: ATORVASTATIN 40 MG TAB PO SCH (20:02)
[2020-10-19] MEDS: FUROSEMIDE 10 MG/ML 4 ML VIAL IV SCH (20:02)
[2020-10-19] MEDS: ALPRAZolam 0.25 MG TAB PO PRN (20:02)
[2020-10-19 20:18] LABS: Glucose,Whole Blood 159 mg/dL (75-99)
[2020-10-20] MEDS: amLODIPine 5 MG TAB PO SCH ×2 (00:04→09:31)
[2020-10-20 06:12] LABS: Glucose,Whole Blood 162 mg/dL (75-99)
[2020-10-20] MEDS: methylPREDNISolone SOD SUCCI 125 MG/2 ML VIAL IV SCH ×4 (06:40→23:36)
[2020-10-20] MEDS: INSULIN ASPART (NovoLOG) 100 UNIT/ML VIAL SQ SCH ×4 (06:41→20:53)
[2020-10-20] MEDS: IPRATROPIUM-ALBUTEROL 3 ML NEB INHALATION SCH ×4 (07:21→21:46)
[2020-10-20] MEDS: ASPIRIN 81 MG PO SCH (09:31)
[2020-10-20] MEDS: LORATADINE 10 MG TAB PO SCH (09:31)
[2020-10-20] MEDS: FUROSEMIDE 10 MG/ML 4 ML VIAL IV SCH ×2 (09:31→20:35)
[2020-10-20] MEDS: METOPROLOL TARTRATE 12.5 MG TAB PO SCH (09:31)
[2020-10-20 11:16] LABS: INR 2.6 (<1.2); Prothrombin Time 25.7 sec (9.0-12.0)
[2020-10-20 11:43] LABS: Glucose,Whole Blood 197 mg/dL (75-99)
[2020-10-20 16:45] LABS: Glucose,Whole Blood 164 mg/dL (75-99)
[2020-10-20] MEDS ORDERED: WARFARIN 2.5 MG TAB PO ONE (18:00)
--- NOTE | 2020-10-20 18:27 | P.PN ---
Subjective Progress Note Date: 10/20/20 Principal diagnosis: Acute on chronic hypoxic respiratory failure secondary to COPD and acute on chronic diastolic congestive heart failure This is a very pleasant 75-year-old gentleman who follows with Dr. Alvin Mott as his primary care provider. 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 Most recent CT of the chest done in May 2020 showed complete clearing of the pulmonary emboli. Follows with Dr. Boyd. The patient also has chronic obstructive pulmonary disease with an FEV1 value 55% of predicted. He is chronically on oxygen at 2 L/m as needed. He is on Advair and DuoNeb inhalations. He does have a history of obstructive sleep apnea and is on APAP with a minimum pressure of 8 and maximum pressure of 16 with a C-Flex of 3. He follows with Dr. Mar in our office for the same. He presented to the emergency room last night with complaints of increasing fatigue, shortness of breath, cough or congestion. He also felt as though he had a fever. He did utilize his nebulized treatments without much improvement. He was also having some chest discomfort. Chest x-ray revealed evidence of cardiomegaly as well as underlying emphysema. White count 5.1. Hemoglobin 14.5. Leukocyte 0.4. INR 2.07. Sodium 138. Potassium 4.5. Creatinine 0.98. Troponin 0.035. ProBNP 996. Influenza not detected. Florez virus not detected. The patient is seen today 10/17/2020 in follow-up on the selective care unit. He is currently sitting up in a chair at the bedside. Awake and alert in no acute distress. Breathing a bit easier today compared to yesterday. He is maintaining O2 saturation in the 90s on 2 L/m per nasal cannula. Afebrile. Hemodynamically stable. Blood culture reveals no growth. Urine culture reveals no growth. White count 10.2. Hemoglobin 14.4. Creatinine INR 2.1. He remains on bronchodilators, ceftriaxone, IV Solu-Medrol. Anticoagulated with warfarin. The patient is seen today 10/18/2020 in follow-up on selective care unit. He is currently resting fairly comfortably in bed. Awake and alert in no acute distress. He is still maintaining O2 saturations in the mid 90s on 2 L/m per nasal cannula. He is still quite dyspneic with minimal exertion. He is afebrile. Blood cultures reveal no growth. Urine culture revealed no growth. White count 15.1. Hemoglobin 14.8. INR 2.3. Chest x-ray was obtained and revealed evidence of COPD and cardiomegaly with left basilar infiltrat Reevaluated today on 10/19/20, patient is doing well, fairly comfortable, in no distress, improving with treatment of his COPD and diastolic congestive heart failure. Patient is only on 2 L nasal cannula, O2 sats was 92%. INR is therapeutic at 2.6. CBC is relatively normal and basic metabolic profile is normal. Chest x-ray on admission showed COPD, cardiomegaly, and left basilar atelectasis Reevaluated today on 10/20/20, patient is on 2 L nasal cannula, O2 saturation is 93%. Chest x-ray on admission showed COPD, cardiomegaly, and left basilar atelectasis. WBC count today is 13.3, elects lites are normal renal profile is normal. Patient is being considered for discharge home today. Objective - Vital Signs Vital signs: Vital Signs Temp 96.8 F L 10/20/20 08:00 Pulse 45 L 10/20/20 12:00 Resp 18 10/20/20 03:23 BP 136/83 10/20/20 12:00 Pulse Ox 93 L 10/20/20 12:00 Intake & Output 10/19/20 10/20/20 10/20/20 18:59 06:59 18:59 Intake Total 760 1200 Output Total 100 640 Balance 660 -640 1200 Weight 114 kg Intake: Oral 760 1200 Output: Urine 100 640 Other: Voiding Method Urinal Urinal Urinal # Voids 1 1 2 # Bowel Movements 1 1 - Exam Physical Exam: Revealed a 75-year-old white male in no distress, pleasant. Head: Atraumatic, normocephalic. HEENT:[Neck is supple.] [No neck masses.] [No thyromegaly.] [No JVD.] Chest: [Symmetrical chest expansion, faint wheezing on forced expiratory maneuver. Diminished breath sounds at the bases. Cardiac Exam: Regular rhythm. Normal S1 and S2, no S3 gallop, no murmur.] Abdomen: [Soft, nontender, no megaly, no rebound, no guarding, normal bowel sounds.] Extremities: [No clubbing, 1+ bipedal edema, no cyanosis.] Good pulses bilaterally Neurological Exam: [No focal neurologic deficit.] Alert and oriented 3. Psychiatric: Normal mood, affect and normal mental status examination. - Labs CBC & Chem 7: 10/19/20 09:16 10/19/20 09:16 Labs: Abnormal Lab Results - Last 24 Hours (Table) 10/19/20 10/20/20 10/20/20 Range/Units 20:17 06:08 10:27 PT 25.7 H (9.0-12.0) sec INR 2.6 H (<1.2) POC Glucose (mg/dL) 159 H 162 H (75-99) mg/dL 10/20/20 10/20/20 Range/Units 11:41 16:44 PT (9.0-12.0) sec INR (<1.2) POC Glucose (mg/dL) 197 H 164 H (75-99) mg/dL Microbiology - Last 24 Hours (Table) 10/16/20 00:00 Blood Culture - Preliminary Blood No Growth after 96 hours Assessment and Plan Assessment: Impression: Acute on chronic hypoxic respiratory failure secondary to acute exacerbation of COPD and acute exacerbation of diastolic congestive heart failure History of unprovoked DVT and pulmonary embolism, on Coumadin. History of morbid obesity. Obstructive sleep apnea syndrome on APap on outpatient basis. Minimum pressure of 8 and maximum 16 with c flex 3. Benign essential hypertension. Benign prostatic hyperplasia. History of frequent urinary tract infection. Bipolar disorder. Chronic back pain. Recommendation: Continue present treatment plan including diuretics, Continue bronchodilators, Continue Coumadin since the patient had previous history of thrombolic embolic disease, unprovoked. Consider discharging the patient home today. Time with Patient: Less than 30
[2020-10-20 20:33] LABS: Glucose,Whole Blood 220 mg/dL (75-99)
[2020-10-20] MEDS: ATORVASTATIN 40 MG TAB PO SCH (20:34)
[2020-10-20] MEDS: LOSARTAN 25 MG TAB PO SCH (20:34)
--- NOTE | 2020-10-20 22:16 | P.PN ---
Subjective Covering Dr. Mott today on 10/19, he will resume the care of the patient tomorrow This is a pleasant 75-year-old male with significant history of COPD presented to the emergency department with complaint of fever, and cough with dyspnea and respiratory distress, and generalized malaise. Patient found to have acute COPD exacerbation with acute diastolic CHF and there was also questionable urinary tract infection. Patient has been evaluated by pulmonary service, his currently also on Medrol 60 mg as well as Lasix intravenously 40 mg daily. Also he is on Rocephin antibiotic. And aspirin 81 mg and warfarin for his history of PE/DVT. Today he still dyspneic and has prolonged expiration on examination. This WBC jumped to 15k due to steroid. INR is stable at 2.3. And he is saturating 90% on 2 L oxygen via nasal cannula [employer] Matcher and cardiothoracic surgery evaluated the patient for his triple- vessel coronary artery disease and surgical team recommended that he follow up with Dr. Mcdonough as an outpatient. Also he has an appointment with Dr. Mcdonough on 09/3040 preop evaluation for his coronary artery disease possible bypass surgery. Patient attempted to use nebulizer at home to minimize shortness of breath without improvement. Patient denies chest pain, abdominal pain, nausea, vomiting, diarrhea, back pain, or additional symptoms. Patient had extensive diagnostic workup in the emergency roomrevealing COPD exacerbation with urinary tract infection. 10/19/2020 Patient is currently sitting the chair and is still short of breath. Awake alert oriented 3. Breathing is easier compared to yesterday. Patient is on oxygen via nasal cannula 2 L. Patient is being continued on IV steroids and breathing treatments and antibiotics. Patient was also seen by CT surgery and recommended outpatient follow-up for surgical evaluation due to triple-vessel disease. Patient has been afebrile. Blood cultures have been negative so far. Laboratory data showed the visit 10.2, hemoglobin 14.1 and platelets 168, INR 2.1 blood sugar is controlled. 10/20/2020 Patient dyspnea is improving, his total has prolonged expiration, which is obvious through his lips as well when his breathing normally. However he is not in respiratory distress. Minimal cough. He is saturating 91-95% and 2 L oxygen via nasal cannula. He is hemodynamically stable. INR is therapeutic today at 1.6 Patient remains on ceftriaxone, Lasix 40 mg twice daily, Solu-Medrol 60 mg Patient was refusing to go to rehab, however he asked me to talk to his knees miss Romero, I called her and discussed the case over the phone, she preferred that the patient goes to rehab if it is indicated by physical therapy as she has difficulty taking care of him at home, I talked to the patient and he agreeable now to go to rehab. Discussed the case with social work administrator. Possible discharge to rehab tomorrow if he cleared by pulmonary service. Also miss Romero confirmed to me that she will make sure the patient will follow up with Dr. Mcdonough at on 10/[address] Mcdonough thereafter for his triple coronary artery disease Objective - Vital Signs Vital signs: Vital Signs Temp 98.6 F 10/20/20 20:00 Pulse 123 H 10/20/20 20:00 Resp 18 10/20/20 20:00 BP 158/102 10/20/20 20:00 Pulse Ox 95 10/20/20 20:00 Intake & Output 10/20/20 10/20/20 10/21/20 06:59 18:59 06:59 Intake Total 1200 Output Total 640 200 Balance -640 1200 -200 Weight 114 kg Intake: Oral 1200 Output: Urine 640 200 Other: Voiding Method Urinal Urinal # Voids 1 2 # Bowel Movements 1 - Exam -GENERAL: The patient is alert and oriented x3, not in any acute distress. Obese HEENT: Pupils are round and equally reacting to light. EOMI. No scleral icterus. No conjunctival pallor. Normocephalic, atraumatic. No pharyngeal erythema. No thyromegaly. CARDIOVASCULAR: S1 and S2 present. No murmurs, rubs, or gallops. -PULMONARY: Chest is clear to auscultation, bilateral expiratory wheezing ABDOMEN: Soft, nontender, nondistended, normoactive bowel sounds. No palpable organomegaly. MUSCULOSKELETAL: No joint swelling or deformity. EXTREMITIES: No cyanosis, clubbing, or pedal edema. NEUROLOGICAL: Gross neurological examination did not reveal any focal deficits. SKIN: No rashes. no petechiae. - Labs CBC & Chem 7: 10/19/20 09:16 10/19/20 09:16 Labs: Abnormal Lab Results - Last 24 Hours (Table) 10/20/20 10/20/20 10/20/20 Range/Units 06:08 10:27 11:41 PT 25.7 H (9.0-12.0) sec INR 2.6 H (<1.2) POC Glucose (mg/dL) 162 H 197 H (75-99) mg/dL 10/20/20 10/20/20 Range/Units 16:44 20:33 PT (9.0-12.0) sec INR (<1.2) POC Glucose (mg/dL) 164 H 220 H (75-99) mg/dL Microbiology - Last 24 Hours (Table) 10/16/20 00:00 Blood Culture - Preliminary Blood No Growth after 96 hours Assessment and Plan Assessment: Acute COPD exacerbation acute on chronic hypoxic respiratory failure secondary to COPD exacerbation and CHF Acute on chronic CHF with diastolic dysfunction. Mildly elevated troponin level. 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 Obstructive sleep apnea on CPAP at home Multivessel coronary artery disease. Outpatient follow-up with CT surgery Dr. Mcdonough was recommended. Urinary tract infectioncontinue IV antibiotics Hypertension Hyperlipidemia Anxiety Depression Bipolar Chronic low back pain Plan: This is a pleasant 75 years old male who presents with acute COPD and diastolic CHF. Continue with Solu-Medrol 60 mg, continue with Lasix 40 mg IV also he is also on warfarin and aspirin, his INR is therapeutic. Monitor INR, continue his oxygen as needed. Follow-up recommendation by pulmonary, cardiology and cardiothoracic services were following the patient cl osely Labs and medication were reviewed.. Continue same treatment. Continue with symptomatic treatment. Resume home medication. Monitor lytes and vitals. DVT and GI prophylaxis. Further recommendationsas per clinical course of the patient DVT prophylaxis: Warfarin GI Prophylaxis: Ppi PT/OT: Pending Prognosis is guarded Dr. Mott team will resume the care of the patient tomorrow
[2020-10-21 03:56] LABS: Glucose,Whole Blood 168 mg/dL (75-99)
[2020-10-21 06:19] LABS: Glucose,Whole Blood 165 mg/dL (75-99)
[2020-10-21] MEDS: methylPREDNISolone SOD SUCCI 125 MG/2 ML VIAL IV SCH ×3 (06:27→16:11)
[2020-10-21] MEDS: INSULIN ASPART (NovoLOG) 100 UNIT/ML VIAL SQ SCH ×2 (06:28→12:34)
[2020-10-21] MEDS: IPRATROPIUM-ALBUTEROL 3 ML NEB INHALATION SCH ×3 (07:54→16:52)
[2020-10-21] MEDS: amLODIPine 5 MG TAB PO SCH (08:27)
[2020-10-21] MEDS: METOPROLOL TARTRATE 12.5 MG TAB PO SCH (08:27)
[2020-10-21] MEDS: FUROSEMIDE 10 MG/ML 4 ML VIAL IV SCH (08:27)
[2020-10-21] MEDS: ASPIRIN 81 MG PO SCH (08:27)
[2020-10-21] MEDS: LORATADINE 10 MG TAB PO SCH (08:27)
[2020-10-21 08:32] VITALS: TEMP 97.5
--- NOTE | 2020-10-21 09:52 | P.DS ---
Providers Date of admission: 10/16/20 02:08 Attending physician: Alvin Mott Consults: 10/16/20 02:13 Consult Physician Routine Consulting Provider: Alyssa Mar Consult Reason/Comments: COPD exacerbation Do you want consulting provider notified?: Yes 10/16/20 09:04 Consult Physician Urgent Consulting Provider: Dom Cristina Consult Reason/Comments: dysrhythnia- frequent ectopic beats Do you want consulting provider notified?: Yes 10/16/20 12:32 Consult Physician Urgent Consulting Provider: Jhonatan Mcdonough Consult Reason/Comments: [place], hx multi-vessel disease, current pt of Dr. Mcdonough Do you want consulting provider notified?: Already Contacted Primary care physician: Avlin Mott Hospital Course: Diagnoses: Acute COPD exacerbation, improving acute on chronic hypoxic respiratory failure secondary to COPD exacerbation and CHF. He was in 2 L oxygen via nasal cannula at home Acute on chronic CHF with diastolic dysfunction. Mildly elevated troponin level. 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 Obstructive sleep apnea on CPAP at home Multivessel coronary artery disease. Outpatient follow-up with CT surgery Dr. Mcdonough was recommended. Urinary tract infectioncontinue IV antibiotics Hypertension Hyperlipidemia Anxiety Depression Bipolar Chronic low back pain Hospital course: This is a pleasant 75-year-old male with significant history of COPD presented to the emergency department with complaint of fever, and cough with dyspnea and respiratory distress, and generalized malaise. Patient found to have acute COPD exacerbation with acute diastolic CHF and there was also questionable urinary tract infection. Patient has been evaluated by pulmonary service, he was treated with Solu-Medrol 60 mg as well as Lasix intravenously 40 mg daily. Also he is on Rocephin antibiotic. And aspirin 81 mg and warfarin for his history of PE/DVT. His dyspnea is improved. This WBC jumped to 15k due to steroid. INR is stable at 2.3. And he is saturating 90% on 2 L oxygen via nasal cannula Formal Waiter/Waitress and cardiothoracic surgery evaluated the patient for his triple- vessel coronary artery disease and surgical team recommended that he follow up with Dr. Mcdonough as an outpatient (already seen previously as an outpatient). Also he has an appointment with Dr. Mar on 10/26 for preop evaluation for his coronary artery disease possible bypass surgery. Thereafter he will follow- up with Dr. Mcdonough for possible surgery. Patient and his niece KENYATTA are aware of these appointment and recommendation He is on warfarin and his INR is therapeutic Physical therapy evaluated the patient and recommended subacute rehab. Patient and his niece KENYATTA agreeable with that. upon discharge patient denies any other new or symptoms, no chest pain or abdominal pain or nausea vomiting. No change in bowel habits Patient was cleared for discharge by all consultants including pulmonary, cardiology and cardiothoracic surgery Problems and management plan were discussed with the patient and he verbalized understanding and acceptance Patient was found stable and can be discharged home however he needs follow-up as an outpatient. Patient was instructed to follow up with PCP Dr. Mott within one week and patient agrees. Also patient and niece are aware of the patient appointment with Dr. Mar on 10/26. Patient was instructed to follow up with police dispatcher Dr. Cristina in 1-2 weeks Gen: patient is a AAOx3, no distress CVS: S1-S2, RRR, no murmur Lungs: B/L CTA, no wheezing Abdomen: soft, no distention, no tenderness, positive bowel sounds Extremity: no leg edema or induration Time spent more than 35 minutes Patient Condition at Discharge: Serious Plan - Discharge Summary Discharge Rx Participant: No New Discharge Prescriptions: No Action Atorvastatin [Lipitor] 40 mg PO HS Losartan [Cozaar] 25 mg PO HS Warfarin [Coumadin] 5 mg PO HS Levocetirizine Dihydrochloride [Xyzal] 5 mg PO DAILY Loperamide [Imodium] 2 mg PO DAILY PRN PRN Reason: Diarrhea Ipratropium Decker [Atrovent Hfa] 2 puff INHALATION RT-DAILY Fluticasone Nasal [place] [Flonase Nasal [place]] 2 spr EA NOSTRIL DAILY Albuterol Nebulized [Ventolin Nebulized] 2.5 mg INHALATION RT-QID@08,12,16,20 Metoprolol Tartrate [Lopressor] 12.5 mg PO DAILY Discharge Medication List Atorvastatin [Lipitor] 40 mg PO HS 09/12/20 [History] Levocetirizine Dihydrochloride [Xyzal] 5 mg PO DAILY 09/27/20 [History] Losartan [Cozaar] 25 mg PO HS 09/27/20 [History] Warfarin [Coumadin] 5 mg PO HS 09/27/20 [History] Albuterol Nebulized [Ventolin Nebulized] 2.5 mg INHALATION RT-QID@08,12,16,20 10/16/20 [History] Fluticasone Nasal [place] [Flonase Nasal [place]] 2 spr EA NOSTRIL DAILY 10/16/20 [History] Ipratropium Decker [Atrovent Hfa] 2 puff INHALATION RT-DAILY 10/16/20 [History] Loperamide [Imodium] 2 mg PO DAILY PRN 10/16/20 [History] Metoprolol Tartrate [Lopressor] 12.5 mg PO DAILY 10/16/20 [History] Follow up Appointment(s)/Referral(s): Alvin Mott MD [Primary Care Provider] - 1-2 days Dom Cristina MD [STAFF PHYSICIAN] - 1 Week Jhonatan Mcdonough MD [STAFF PHYSICIAN] - 2 Weeks (after pulmonary evaluation ) [facility], [NON-STAFF] - 1 Week Alyssa Mar MD [STAFF PHYSICIAN] - 10/26/20 2:15 pm
[2020-10-21 11:55] LABS: Glucose,Whole Blood 218 mg/dL (75-99)
[2020-10-21 12:18] LABS: INR 2.4 (<1.2); Prothrombin Time 22.9 sec (9.0-12.0)
[2020-10-21 15:23] VITALS: BMI 32.4
[2020-10-21 16:10] VITALS: BP 145/69; PULSE 76; RESP 16
[2020-10-21 16:36] LABS: Glucose,Whole Blood 198 mg/dL (75-99)
[2020-10-21] MEDS ORDERED: WARFARIN 3 MG TAB PO ONE (18:00)
== END 2020-10-21 17:01 | DRG 291 ==
LOC: EC 23:14 → 6NMEDSUR 10-16 02:08 → 3SCARD 10-16 15:37
PROVIDERS: ADMIT Family Medicine; ATTEND Family Medicine
DX: I11.0 Hypertensive heart disease with heart failure (principal); J96.21 Acute and chronic respiratory failure with hypoxia; J44.1 Chronic obstructive pulmonary disease with (acute) exacerbation; J98.11 Atelectasis; N39.0 Urinary tract infection, site not specified; G47.33 Obstructive sleep apnea (adult) (pediatric); Z99.89 Dependence on other enabling machines and devices; Z20.828 Contact with and (suspected) exposure to other viral communicable diseases; F31.9 Bipolar disorder, unspecified; F41.9 Anxiety disorder, unspecified; G89.29 Other chronic pain; E66.01 Morbid (severe) obesity due to excess calories; Z68.32 Body mass index [BMI] 32.0-32.9, adult; E78.5 Hyperlipidemia, unspecified; F03.90 Unspecified dementia, unspecified severity, without behavioral disturbance, psychotic disturbance, mood disturbance, and anxiety; F17.210 Nicotine dependence, cigarettes, uncomplicated; I25.82 Chronic total occlusion of coronary artery; I25.10 Atherosclerotic heart disease of native coronary artery without angina pectoris; I49.3 Ventricular premature depolarization; Z79.01 Long term (current) use of anticoagulants; Z95.1 Presence of aortocoronary bypass graft; I50.33 Acute on chronic diastolic (congestive) heart failure; N40.0 Benign prostatic hyperplasia without lower urinary tract symptoms; T38.0X5A Adverse effect of glucocorticoids and synthetic analogues, initial encounter; D72.829 Elevated white blood cell count, unspecified; Z99.81 Dependence on supplemental oxygen; Z79.899 Other long term (current) drug therapy; Z86.711 Personal history of pulmonary embolism; Z86.718 Personal history of other venous thrombosis and embolism; Z87.440 Personal history of urinary (tract) infections; Z87.01 Personal history of pneumonia (recurrent); Z80.9 Family history of malignant neoplasm, unspecified; M54.5 Low back pain; R79.89 Other specified abnormal findings of blood chemistry; F10.11 Alcohol abuse, in remission; Z91.5 Personal history of self-harm
CPT/HCPCS: 36415; 51702; 71045; 80048; 80053; 81001; 83605; 83735; 83880; 84145; 84484; 85025; 85610; 85730; 87040; 87086; 87502; 87635; 93005; 93308; 94640; 96361; 96365; 96375; 99284

== ENCOUNTER 2020-11-02 22:00 | Inpatient (IN) | payer MEDICARE ==
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
[2020-11-02 22:47] LABS: Basophils # (A) 0.2 k/uL (0-0.2); Basophils % (A) 1 %; Eosinophils # (A) 0.1 k/uL (0-0.7); Eosinophils % (A) 1 %; HCT 51.5 % (39.0-53.0); HGB 17.6 gm/dL (13.0-17.5); Lymphocytes # (A) 0.5 k/uL (1.0-4.8); Lymphocytes % (A) 4 %; MCH 31.6 pg (25.0-35.0); MCHC 34.2 g/dL (31.0-37.0); MCV 92.4 fL (80.0-100.0); Mean Platelet Volume 6.4; Monocytes # (A) 0.4 k/uL (0-1.0); Monocytes % (A) 4 %; Neutrophils # (A) 10.6 k/uL (1.3-7.7); Neutrophils % (A) 90 %; Platelet Count 151 k/uL (150-450); RBC 5.58 m/uL (4.30-5.90); RDW 13.4 % (11.5-15.5); WBC 11.8 k/uL (3.8-10.6)
[2020-11-02 22:57] LABS: Albumin 3.4 g/dL (3.5-5.0); Calcium 8.4 mg/dL (8.4-10.2); Potassium 4.4 mmol/L (3.5-5.1); Total Bilirubin 0.9 mg/dL (0.2-1.3); Total Protein 6.4 g/dL (6.3-8.2)
[2020-11-02 22:59] LABS: INR 1.3 (<1.2); Partial Thromboplastin Time 30.9 sec (22.0-30.0); Prothrombin Time 13.3 sec (9.0-12.0)
--- NOTE | 2020-11-02 23:07 | XR ---
EXAMINATION TYPE: XR chest 1V portable DATE OF EXAM: 11/02/2020 COMPARISON: 10/18/2020 HISTORY: Altered mental status TECHNIQUE: Single view FINDINGS: Heart is normal. There is coarsening of the interstitial pulmonary markings. Thoracic aorta is intact. There are no hilar masses. There are chest leads. Costophrenic angles are clear. IMPRESSION: Atheromatous aorta. Mild pulmonary interstitial fibrosis. No heart failure seen. No adver se change compared to old exam.
--- NOTE | 2020-11-02 23:09 | CT ---
EXAMINATION TYPE: CT brain wo con DATE OF EXAM: 11/02/2020 COMPARISON: 05/22/2020 HISTORY: AMS CT DLP: 1180.4 mGycm Automated exposure control for dose reduction was used. Exam performed without contrast. There is cerebral cortical atrophy. There is no mass effect nor midline shift. There is no sign of in tracranial hemorrhage. There is patchy hypodensity in the periventricular white matter. Calvarium is intact. Skull base is intact. IMPRESSION: Cerebral atrophy and chronic small vessel ischemia. No acute intracranial abnormality. No change.
[2020-11-03 00:43] LABS: Appearance,Urine Clear (Clear); Bilirubin,Urine Negative (Negative); Blood,Urine Negative (Negative); Color,Urine Yellow; Glucose,Urine (UA) Negative (Negative); Ketones,Urine Negative (Negative); Leukocyte Esterase,Urine Large (Negative); Mucus,Urine Rare /hpf; Nitrite,Urine Negative (Negative); Protein,Urine Trace (Negative); RBC,Urine 3 /hpf (0-5); Specific Gravity,Urine 1.013 (1.001-1.035); Urobilinogen,Urine <2.0 mg/dL (<2.0); WBC,Urine 37 /hpf (0-5)
[2020-11-03 00:45] LABS: Amphetamine Screen,Urine Not Detected (NotDetected); Barbiturate Screen,Urine Not Detected (NotDetected); Benzodiazepines Screen,Urine Not Detected (NotDetected); Cocaine Screen,Urine Not Detected (NotDetected); Methadone Screen, Urine Not Detected (NotDetected); Opiate Screen,Urine Not Detected (NotDetected); Oxycodone Screen, Urine Not Detected (NotDetected); Phencyclidine Screen,Urine Not Detected (NotDetected); Tricyclic Antidepressant,Urine Not Detected (NotDetected); Urn Cannabinoid Scrn Not Detected (NotDetected)
[2020-11-03] MEDS ORDERED: SODIUM CHLORIDE 0.9% 500 ML 500 ML IV STA (01:02)
[2020-11-03] MEDS ORDERED: SODIUM CHLORIDE 0.9% 1,000 ML IV STA (01:02)
[2020-11-03] MEDS ORDERED: ACETAMINOPHEN TAB 325 MG TAB PO STA (01:29)
[2020-11-03] MEDS ORDERED: ACETAMINOPHEN TAB 325 MG TAB PO PRN (01:40)
[2020-11-03] MEDS ORDERED: NALOXONE 0.4 MG/ML 1 ML VIAL IV PRN (01:40)
[2020-11-03] MEDS ORDERED: HEPARIN SODIUM,PORCINE 5,000 UNIT/ML 1 ML VIAL IV PRN (01:51)
[2020-11-03] MEDS ORDERED: HEPARIN SODIUM,PORCINE 5,000 UNIT/ML 1 ML VIAL IV ONE (01:51)
[2020-11-03] MEDS: HEPARIN SOD,PORK IN 0.45% NACL 25,000 UNIT in 0.45% NACL 1 250ML.BAG IV SCH (02:21)
[2020-11-03] MEDS ORDERED: ALPRAZolam 0.25 MG TAB PO PRN (07:22)
[2020-11-03] MEDS ORDERED: LOPERAMIDE 2 MG CAP PO PRN (07:22)
--- NOTE | 2020-11-03 08:45 | XR ---
EXAMINATION TYPE: XR chest 1V portable DATE OF EXAM: 11/03/2020 COMPARISON: Prior chest x-ray 11/02/2020, CT 06/02/2020 HISTORY: Shortness of breath TECHNIQUE: Single frontal view of the chest is obtained. FINDINGS: Patient is rotated. Heart size is stable accounting for differences in technique. Patchy b ibasilar density is noted. No pneumothorax or evident effusion. There are overlying cardiac leads. IMPRESSION: There may be some basilar atelectatic changes or scarring, correlate to exclude pneumoni a, follow-up PA and lateral chest x-ray may be of benefit. There is underlying emphysema.
[2020-11-03] MEDS ORDERED: predniSONE 20 MG TAB PO ONE (09:00)
[2020-11-03] MEDS ORDERED: ZINC SULFATE 220 MG CAP PO SCH (09:00)
[2020-11-03] MEDS: amLODIPine 5 MG TAB PO SCH (10:12)
[2020-11-03] MEDS: LORATADINE 10 MG TAB PO SCH (10:12)
[2020-11-03] MEDS: FLUTICASONE 50MCG/SPRAY NASAL 16GM EA NOSTRIL SCH (10:12)
[2020-11-03] MEDS: ASCORBIC ACID 500 MG TAB PO SCH (10:12)
[2020-11-03] MEDS: PANTOPRAZOLE 40 MG TABLET PO SCH (10:13)
[2020-11-03] MEDS: FUROSEMIDE 40 MG TAB PO SCH ×2 (10:14→22:50)
[2020-11-03] MEDS: METOPROLOL TARTRATE 25 MG TAB PO SCH (10:15)
[2020-11-03] MEDS: SODIUM CHLORIDE 0.9% 1,000 ML IV SCH ×2 (10:16→22:50)
[2020-11-03] MEDS: ZINC SULFATE 220 MG CAP PO SCH (10:39)
[2020-11-03 11:11] LABS: Basophils % (A) 0 %; Eosinophils % (A) 1 %; HCT 52.9 % (39.0-53.0); HGB 16.8 gm/dL (13.0-17.5); Lymphocytes # (A) 0.7 k/uL (1.0-4.8); Lymphocytes % (A) 9 %; MCH 30.4 pg (25.0-35.0); MCHC 31.8 g/dL (31.0-37.0); MCV 95.8 fL (80.0-100.0); Mean Platelet Volume 6.5; Monocytes # (A) 0.3 k/uL (0-1.0); Monocytes % (A) 4 %; Neutrophils # (A) 7.1 k/uL (1.3-7.7); Neutrophils % (A) 86 %; Platelet Count 120 k/uL (150-450); RBC 5.52 m/uL (4.30-5.90); WBC 8.3 k/uL (3.8-10.6)
[2020-11-03] MEDS: IPRATROPIUM 0.5 MG/2.5 ML NEBU INHALATION SCH (11:15)
[2020-11-03 11:20] LABS: ALT 40 U/L (4-49); AST 33 U/L (17-59); African American GFR (CKD) 73 (>60 ml/min/1.73 sqM); Albumin 3.4 g/dL (3.5-5.0); Alkaline Phosphatase 56 U/L (38-126); Anion Gap 7 mmol/L; Blood Urea Nitrogen 25 mg/dL (9-20); Calcium 8.4 mg/dL (8.4-10.2); Carbon Dioxide 32 mmol/L (22-30); Chloride 97 mmol/L (98-107); Globulin 3.3 g/dL; Glucose 111 mg/dL (74-99); Non-African American GFR(CKD) 63 (>60 ml/min/1.73 sqM); Potassium 4.2 mmol/L (3.5-5.1); Sodium 136 mmol/L (137-145); Total Bilirubin 0.8 mg/dL (0.2-1.3); Total Protein 6.7 g/dL (6.3-8.2)
[2020-11-03 15:30] LABS: ABG Base Excess 4.4 mmol/L; ABG HCO3 28 mmol/L (21-25); ABG Oxygen Saturation 96.2 % (94-97); ABG PCO2 40 mmHg (35-45); ABG PH 7.46 (7.35-7.45); ABG PO2 74 mmHg (83-108); ABG TCO2 30 mmol/L (19-24); Allen Test Performed? Yes
--- NOTE | 2020-11-03 15:37 | CT ---
EXAMINATION TYPE: CT chest angio for PE DATE OF EXAM: 11/03/2020 COMPARISON: HISTORY: Shortness of breath CT DLP: 725.4 mGycm Automated exposure control for dose reduction was used. CONTRAST: CT Chest for pulmonary embolism performed with without and with IV Contrast, patient injected with 10 0 ml mL of Isovue 370. Three-dimensional reconstructions performed on an alternate workstation. FINDINGS: There is some motion on the exam somewhat limiting evaluation. LUNGS: The lungs are grossly clear, there is no concerning parenchymal mass or nodule identified. Partha e probable dependent atelectatic changes are present. There is no pleural effusion or pneumothorax s een. The tracheobronchial tree is patent. MEDIASTINUM: There is satisfactory enhancement of the pulmonary artery and some limitation in evaluat ion of segmental branches lack of opacification of segmental branches in the right lower lobe, axial image 92, 91 could be sequela from prior pulmonary emboli. Axial image #83 in the left lower lobe tiffany ws a filling defect which is eccentric and could represent recanalized pulmonary embolus, chronic emb sage. Pulmonary artery prominence could be due to pulmonary artery hypertension. There are no greater than 1 cm hilar or mediastinal lymph nodes. No pericardial effusion is seen. There are prominent ep icardial fat pads. AORTA: Ectatic descending aorta is present. There are coronary artery calcifications. OTHER: Possible underlying disc, there is multilevel thoracic spondylosis. IMPRESSION: Exam is limited to exclude emboli in the segmental branches as described
[2020-11-03] MEDS: ALBUTEROL NEBULIZED 2.5 MG/3 ML INHALATION SCH ×3 (15:47→22:52)
[2020-11-03 17:52] LABS: INR 1.5 (<1.2); Prothrombin Time 14.4 sec (9.0-12.0)
[2020-11-03] MEDS ORDERED: WARFARIN 5 MG TAB PO ONE (18:00)
[2020-11-03] MEDS ORDERED: WARFARIN 5 MG TAB PO SCH (21:00)
--- NOTE | 2020-11-03 21:23 | P.HPIM ---
History of Present Illness H&P Date: 11/03/20 Chief Complaint: Confusion/generalized weakness 75-year-old male was transferred from long-term care facility, due to the fact that to alf staff was concerned with the patient's acute change of mental status and generalized weakness. During emergency extensive diagnostic workup revealed acute deliriumpossibly due to underlying medical conditions, and urinary tract infection. Patient to answer questions with few word answers. Patient recently diagnosed with Covid 19 on 10/23/2020recovered. Subjective data difficulty obtaining to possibly acute delirium due to urinary tract infection Review of Systems Constitutional: Reports fatigue, Reports lethargy, Reports weakness Ears: bilateral: decreased hearing Cardiovascular: Reports leg edema, Reports shortness of breath Respiratory: Reports dyspnea, Reports respiratory infections Musculoskeletal: Reports muscle weakness Neurological: Reports weakness Past Medical History Past Medical History: Asthma, Coronary Artery Disease (CAD), Heart Failure, COPD, Dementia, Deep Vein Thrombosis (DVT), Hyperlipidemia, Hypertension, Memory Impairment, Pulmonary Embolus (PE), Respiratory Disorder, Sleep Apnea/CPAP/BIPAP Additional Past Medical History / Comment(s): Pt diagnosed with covid 10/23/20 at [facility]. Pt recently admitted to [facility] on 10/16/20 with acute exacerbation COPD/exacerbation CHF/acute on chronic hypoxic respiratory failure/UTI. Other hx: Cognitively delayed, CAD/triple vessel disease-recently seen by Dr. Mcdonough and ana rosa stated they next need to be seen by Dr. Mar, DIETER with Cpap, wears O2 at 2L/ATC now, colitis, IBS, UTIs, muscle weakness, ROL states pt is currently nonambulatory. History of Any Multi-Drug Resistant Organisms: None Reported Past Surgical History: Adenoidectomy, Heart Catheterization, Orthopedic Surgery, Prostate Surgery, Tonsillectomy Additional Past Surgical History / Comment(s): 08/2020 cardiac cath, TURP, vasectomy, colonoscopy, L wrist surgery, L thumb tendon surgery Past Anesthesia/Blood Transfusion Reactions: No Reported Reaction Smoking Status: Former smoker - Past Family History Mother Family Medical History: Cancer Additional Family Medical History / Comment(s): Mental health issues. Father Family Medical History: Cancer Medications and Allergies Home Medications and Allergies Comment(s): Medications and ALLERGIES reviewed Home Medications Medication Instructions Recorded Confirmed Type Atorvastatin [Lipitor] 40 mg PO HS 09/12/20 11/02/20 History Levocetirizine Dihydrochloride 5 mg PO DAILY 09/27/20 11/02/20 History [Xyzal] Losartan [Cozaar] 25 mg PO HS 09/27/20 11/02/20 History Warfarin [Coumadin] 5 mg PO MOTUWEFRSA@2100 09/27/20 11/02/20 History Albuterol Nebulized [Ventolin 2.5 mg INHALATION 10/16/20 11/02/20 History Nebulized] RT-QID@,, Fluticasone Nasal [place] [Flonase 2 spr EA NOSTRIL DAILY 10/16/20 11/02/20 History Nasal [place]] Ipratropium [place] [Atrovent Hfa] 2 puff INHALATION RT-DAILY 10/16/20 11/02/20 History Loperamide [Imodium] 2 mg PO DAILY PRN 10/16/20 11/02/20 History Metoprolol Tartrate [Lopressor] 12.5 mg PO DAILY 10/16/20 11/02/20 History ALPRAZolam [Xanax] 0.25 mg PO HS PRN 3 Days #3 tab 10/21/20 11/02/20 Rx Furosemide [Lasix] 40 mg PO BID #60 tablet 10/21/20 11/02/20 Rx amLODIPine [Norvasc] 5 mg PO DAILY tab 10/21/20 11/02/20 Rx Ascorbic Acid [Vitamin C] 500 mg PO DAILY 11/02/20 11/02/20 History Azithromycin [Zithromax] 250 mg PO DAILY 11/02/20 11/02/20 History Omeprazole 20 mg PO BID 11/02/20 11/02/20 History Warfarin [Coumadin] 5 mg PO ONCE 11/02/20 11/02/20 History Zinc 50 mg PO DAILY 11/02/20 11/02/20 History predniSONE See Taper PO DIRECTED 11/02/20 11/02/20 History Allergies Allergy/AdvReac Type Severity Reaction Status Date / Time No Known Allergies Allergy Verified 11/02/20 22:09 Physical Exam Vitals: Vital Signs Temp Pulse Resp BP Pulse Ox 11/03/20 19:24 92 11/03/20 19:15 92 11/03/20 15:53 92 11/03/20 15:50 99 11/03/20 15:49 89 11/03/20 14:37 96.6 F L 89 18 111/75 97 11/03/20 12:22 98.5 F 84 20 123/84 96 11/03/20 12:18 85 18 123/84 94 L 11/03/20 11:15 97.7 F 85 29 H 115/71 92 L 11/03/20 10:42 99.9 F H 85 30 H 94 L 11/03/20 08:59 86 27 H 134/75 94 L 11/03/20 08:26 90 26 H 134/75 96 11/03/20 07:56 97.7 F 11/03/20 07:26 77 24 135/80 100 11/03/20 04:56 86 22 109/71 96 11/03/20 02:24 98.9 F 11/03/20 01:29 102.2 F H 94 20 144/88 97 11/02/20 23:28 97 20 140/78 97 11/02/20 22:04 100.4 F H 100 26 H 119/99 97 Intake and Output 11/03/20 11/03/20 11/03/20 06:59 14:59 22:59 Intake Total 93.657 0 Output Total 250 Balance 93.657 -250 Intake: Intake, IV Titration 93.657 0 Amount Heparin Sod,Pork in 0.45% 93.657 0 NaCl 25,000 unit In 0.45 % NaCl 1 250ml.bag @ 8.88 UNITS/KG/HR 9.999 mls/hr IV .Q24H [facility] Rx#: [id number] Output: Urine 250 Other: # Voids 1 Weight 112.6 kg Moderate distress - Constitutional General appearance: morbidly obese - EENT Eyes: EOMI, PERRLA ENT: hard of hearing Ears: bilateral: normal - Neck Thyroid: bilateral: normal size - Respiratory Respiratory: bilateral: diminished (Anterior lung cevallos), rales (Posterior lung bases) - Cardiovascular Normal sinus rhythm with nonspecific ST changes Heart rate: 92 Rhythm: regular leg Peripheral Edema: bilateral: 3+ ankle Peripheral Edema: bilateral: 3+ radial pulse Peripheral Pulses: bilateral: Normal - Gastrointestinal General gastrointestinal: absent bowel sounds - Integumentary Integumentary: pale - Musculoskeletal Musculoskeletal: generalized weakness - Psychiatric Alert to name Confused Few word sentences Results CBC & Chem 7: 12/08/20 10:53 11/03/20 10:53 Labs: Abnormal Lab Results - Last 24 Hours (Table) 11/02/20 11/02/20 11/02/20 Range/Units 22:32 22:32 22:32 WBC 11.8 H (3.8-10.6) k/uL Hgb 17.6 H (13.0-17.5) gm/dL Plt Count (150-450) k/uL Neutrophils # 10.6 H (1.3-7.7) k/uL Lymphocytes # 0.5 L (1.0-4.8) k/uL PT 13.3 H (9.0-12.0) sec INR 1.3 H (<1.2) APTT 30.9 H (22.0-30.0) sec ABG pH (7.35-7.45) ABG pO2 (83-108) mmHg ABG HCO3 (21-25) mmol/L ABG Total CO2 (19-24) mmol/L Sodium 132 L (137-145) mmol/L Chloride 92 L (98-107) mmol/L Carbon Dioxide 34 H (22-30) mmol/L BUN 21 H (9-20) mg/dL Glucose 109 H (74-99) mg/dL Albumin 3.4 L (3.5-5.0) g/dL Urine Protein (Negative) Ur Leukocyte Esterase (Negative) Urine WBC (0-5) /hpf Urine Mucus (None) /hpf 11/03/20 11/03/20 11/03/20 Range/Units 00:27 10:53 10:53 WBC (3.8-10.6) k/uL Hgb (13.0-17.5) gm/dL Plt Count 120 L (150-450) k/uL Neutrophils # (1.3-7.7) k/uL Lymphocytes # 0.7 L (1.0-4.8) k/uL PT (9.0-12.0) sec INR (<1.2) APTT 129.2 H* (22.0-30.0) sec ABG pH (7.35-7.45) ABG pO2 (83-108) mmHg ABG HCO3 (21-25) mmol/L ABG Total CO2 (19-24) mmol/L Sodium (137-145) mmol/L Chloride (98-107) mmol/L Carbon Dioxide (22-30) mmol/L BUN (9-20) mg/dL Glucose (74-99) mg/dL Albumin (3.5-5.0) g/dL Urine Protein Trace H (Negative) Ur Leukocyte Esterase Large H (Negative) Urine WBC 37 H (0-5) /hpf Urine Mucus Rare H (None) /hpf 11/03/20 11/03/20 11/03/20 Range/Units 10:53 10:53 15:26 WBC (3.8-10.6) k/uL Hgb (13.0-17.5) gm/dL Plt Count (150-450) k/uL Neutrophils # (1.3-7.7) k/uL Lymphocytes # (1.0-4.8) k/uL PT 14.4 H (9.0-12.0) sec INR 1.5 H (<1.2) APTT (22.0-30.0) sec ABG pH 7.46 H (7.35-7.45) ABG pO2 74 L (83-108) mmHg ABG HCO3 28 H (21-25) mmol/L ABG Total CO2 30 H (19-24) mmol/L Sodium 136 L (137-145) mmol/L Chloride 97 L (98-107) mmol/L Carbon Dioxide 32 H (22-30) mmol/L BUN 25 H (9-20) mg/dL Glucose 111 H (74-99) mg/dL Albumin 3.4 L (3.5-5.0) g/dL Urine Protein (Negative) Ur Leukocyte Esterase (Negative) Urine WBC (0-5) /hpf Urine Mucus (None) /hpf Microbiology - Last 24 Hours (Table) 11/03/20 00:27 Urine Culture - Preliminary Urine,Clean Catch Chest x-ray: report reviewed CT scan - chest: report reviewed CT Scan - head: report reviewed Thrombosis Risk Factor Assmnt - Choose All That Apply Any of the Below Risk Factors Present?: Yes Each Factor Represents 1 point: Abnormal pulmonary function (COPD), Heart failure (<1month), Medical pt on bed rest, Obesity (BMI >25), Serious lung disease incl. pneumonia (< 1month) Other Risk Factors: Yes Each Risk Factor Represents 2 Points: Patient confined to bed Each Risk Factor Represents 3 Points: Age 75 years or older, History of DVT/PE Other congenital or acquired thrombophilia - If yes, enter type in comment: No Thrombosis Risk Factor Assessment Total Risk Factor Score: 13 Thrombosis Risk Factor Assessment Level: High Risk Assessment and Plan Assessment: Acute deliriumpossibly due to medical condition/urinary tract infection Acute urinary tract infectioncontinue IV Rocephin History of asthma History of coronary artery disease History of heart failure unspecified diastolic/systolic COPD without exacerbation Dementia History of DVTs Hyperlipidemia Hypertension History of pulmonary embolism Sleep apnea (1) Delirium due to general medical condition Narrative/Plan: Acute delirium possibly due to general medical condition Current Visit: Yes Status: Acute Code(s): F05 - DELIRIUM DUE TO KNOWN PHYSIOLOGICAL CONDITION SNOMED Code(s): 4068890 (2) UTI (urinary tract infection) Narrative/Plan: Urinalysis reveals urinary tract infection awaiting culture and sensitivity Current Visit: Yes Status: Acute Code(s): N39.0 - URINARY TRACT INFECTION, SITE NOT SPECIFIED SNOMED Code(s): 61000453 Plan: Acute deliriumpossibly due to medical condition/urinary tract infection Acute urinary tract infectioncontinue IV Rocephin-awaiting culture and sensitivity Continue consultation with pulmonary critical care for recommendations of COPD Continue consultation with cardiology for recommendations of mildly elevated troponins Continue home medications Continue medical management Time with Patient: Greater than 30
[2020-11-03] MEDS: ATORVASTATIN 40 MG TAB PO SCH (22:50)
[2020-11-03] MEDS: LOSARTAN 25 MG TAB PO SCH (22:50)
[2020-11-04] MEDS: ALBUTEROL NEBULIZED 2.5 MG/3 ML INHALATION SCH ×5 (02:56→22:14)
[2020-11-04] MEDS: HEPARIN SOD,PORK IN 0.45% NACL 25,000 UNIT in 0.45% NACL 1 250ML.BAG IV SCH (03:04)
[2020-11-04 06:17] LABS: Basophils % (A) 0 %; Eosinophils % (A) 0 %; HCT 45.4 % (39.0-53.0); Lymphocytes # (A) 0.7 k/uL (1.0-4.8); Lymphocytes % (A) 12 %; MCHC 33.1 g/dL (31.0-37.0); MCV 93.7 fL (80.0-100.0); Mean Platelet Volume 6.6; Monocytes # (A) 0.3 k/uL (0-1.0); Monocytes % (A) 5 %; Neutrophils # (A) 4.5 k/uL (1.3-7.7); Neutrophils % (A) 81 %; Platelet Count 105 k/uL (150-450); RBC 4.85 m/uL (4.30-5.90); RDW 13.4 % (11.5-15.5); WBC 5.5 k/uL (3.8-10.6)
[2020-11-04] MEDS ORDERED: LORazepam 2 MG/ML INJ IV STA (07:01)
--- NOTE | 2020-11-04 08:01 | XR ---
EXAMINATION TYPE: XR chest 1V DATE OF EXAM: 11/04/2020 COMPARISON: Prior chest x-ray 11/03/2020 HISTORY: Shortness of breath, pneumonia TECHNIQUE: Single frontal view of the chest is obtained. FINDINGS: There is no significant change. Patient is rotated. Cardiac mediastinal silhouette is stab le. No pneumothorax or pleural effusion. Minimal patchy basilar density noted. IMPRESSION: Correlate for pneumonia, atelectasis. Rotated exam, follow-up as indicated.
[2020-11-04 08:41] LABS: D-Dimer 0.49 mg/L FEU (<0.60)
[2020-11-04 08:50] LABS: Partial Thromboplastin Time 113.5 sec (22.0-30.0)
[2020-11-04] MEDS: IPRATROPIUM 0.5 MG/2.5 ML NEBU INHALATION SCH (08:50)
[2020-11-04] MEDS: FLUTICASONE 50MCG/SPRAY NASAL 16GM EA NOSTRIL SCH (08:51)
[2020-11-04] MEDS: METOPROLOL TARTRATE 25 MG TAB PO SCH (08:55)
[2020-11-04] MEDS: ASCORBIC ACID 500 MG TAB PO SCH (08:57)
[2020-11-04] MEDS: LORATADINE 10 MG TAB PO SCH (08:57)
[2020-11-04] MEDS: ZINC SULFATE 220 MG CAP PO SCH (08:57)
[2020-11-04] MEDS: amLODIPine 5 MG TAB PO SCH (08:58)
[2020-11-04] MEDS: FUROSEMIDE 40 MG TAB PO SCH ×2 (08:58→22:17)
[2020-11-04] MEDS: PANTOPRAZOLE 40 MG TABLET PO SCH (08:58)
[2020-11-04] MEDS ORDERED: predniSONE 10 MG TAB PO SCH (09:00)
[2020-11-04] MEDS ORDERED: AZITHROMYCIN 500 MG in SODIUM CHLORIDE 0.9% 250 ML IVPB SCH (09:30)
[2020-11-04 09:38] LABS: C Reactive Protein 60.8 mg/L (<10.0)
[2020-11-04 11:35] LABS: INR 1.41 (0.90-1.11); Prothrombin Time 14.8 sec (9.9-11.9)
[2020-11-04 12:24] LABS: African American GFR (CKD) 95.1 (60.0-200.0); Albumin 3.1 g/dL (3.80-4.90); Albumin/Globulin Ratio 1.82 (1.60-3.17); Anion Gap 7.3 mmol/L (4.00-12.00); BUN/Creat Ratio 27.78 Ratio (12.00-20.00); Calcium 7.7 mg/dL (8.7-10.3); Carbon Dioxide 30.7 mmol/L (21.6-31.8); Globulin 1.7 g/dL (1.6-3.3); Magnesium 1.8 mg/dL (1.5-2.4); Non-African American GFR(CKD) 82.1 (60.0-200.0); Potassium 3.8 mmol/L (3.5-5.5); Total Bilirubin 0.5 mg/dL (0.2-1.2); Total Protein 4.8 g/dL (6.2-8.2)
--- NOTE | 2020-11-04 12:33 | P.CRDCN ---
History of Present Illness History of present illness: HISTORY OF PRESENTING ILLNESS This is a pleasant 75-year-old male past medical history significant for coronary artery disease with multi-vessel CAD recommended for bypass grafting, history of PE on coumadin, dyslipidemia, hypertension, frequent PVC's and COPD. He follows in the office with Dr. Cristina. We have been asked to see in consultation for arrhythmia. Mr. Gottlieb is well known to us. He underwent cardiac catheterization with Dr. Cristina 09/03/2020 revealing heavily calcified coronary arteries, severe stenosis in the left main, chronic total occlusion of the RCA and diffuse disease of the LAD and circumflex. He had gone back and forth between being agreeable to bypass and then not being agreeable and was also evaluated for possible high-risk PCI however has been in and out of the hospital numerous times. He presented secondary to altered mental status and was found to have a urinary tract infection. He does not believe he had any confusion and believes she is here mainly for shortness breath. He did recently have coronavirus infection and has been recovering. Unfortunately he had more confusion and therefore was brought to the emergency department. He follows in the office with Dr. Cristina. He did have a CTA performed which shows questionable filling defect may be related to a recanalized pulmonary embolus or chronic emboli. Chest x-ray shows infiltrates and correlate for pneumonia. DIAGNOSTICS EKG reveals sinus rhythm, occasional PVC, normal axis, nonspecific ST-T wave abnormalities CTA: Questionable segmental pulmonary embolism, chest x-ray correlate for pneumonia Labs: White blood cell 5.5, hemoglobin 15.0, platelets 105, INR 1.41, CRP 60.8, proBNP 131 cat and 1.12 REVIEW OF SYSTEMS At the time of my exam: CONSTITUTIONAL: Denies fever or chills. CARDIOVASCULAR: Complains of shortness of breath. Denies chest pain,orthopnea, PND or palpitations. RESPIRATORY: Complains of cough. GASTROINTESTINAL: Denies abdominal pain, diarrhea, constipation, nausea or vomiting. MUSCULOSKELETAL: Denies myalgias. NEUROLOGIC: Denies numbness, tingling or weakness. ENDOCRINE: +fatigue, no weight change, polydipsia or polyurina. GENITOURINARY: Denies burning, hematuria or urgency with micturation. HEMATOLOGIC: Denies history of anemia or bleeding. PHYSICAL EXAMINATION Blood pressure 131/74 heart rate 94 afebrile and maintaining oxygen saturation on nasal cannula. CONSTITUTIONAL: No apparent distress, chronically ill-appearing, food on his go wn, mild tachypnea. HEENT: Head is normocephalic. Pupils are equal, round. Sclerae anicteric. Mucous membranes of the mouth are moist. No JVD. No carotid bruit. CHEST EXAMINATION: Bilateral rhonchi, diminished breath sounds bilaterally, +expiratory wheeze. No chest wall tenderness is noted on palpation or with deep breathing. HEART EXAMINATION: Regular rate and rhythm. S1, S2 heard. No murmurs, gallops or rub. ABDOMEN: Soft, nontender. Positive bowel sounds. EXTREMITIES: 2+ peripheral pulses, no lower extremity edema and no calf tenderness. 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 Patient turned out CABG in the past. PVC's, maintained on lopressor Hypertension Dyslipidemia History of PE on coumadin with subtherapeutic INR Recent Covid 19 infection Acute on chronic respiratory failure, suspect mainly related to pneumonia and underlying COPD. Do not suspect heart failure with a normal BNP. PLAN Patient does have severe coronary artery disease but has refused CABG in the past and do not suspect any acute coronary syndrome at this time, troponins negative 2. Suspect altered mental status related to sepsis possibly from UTI versus pneumonia. Suspect majority of his respiratory complaints are related to recent Covid 19 infection, possible pneumonia and COPD. ProBNP noted to be normal and do not suspect heart failure Questionable PE by CTA however he does have a history of PE in the past and has been on Coumadin. His Coumadin is subtherapeutic. Continue with Coumadin at this time. Continue with current blood pressure regimen and maintain home regimen of Lasix 40 mg by mouth twice a day. Prognosis guarded. No need for any repeat echocardiogram or further cardiac testing at this point. Continue treatment of patient's altered mental status and infection and follow-up with Dr. Cristina when able. No further recommendations from a cardiac standpoint. Please call with any questions. Past Medical History Past Medical History: Asthma, Coronary Artery Disease (CAD), Heart Failure, COPD, Dementia, Deep Vein Thrombosis (DVT), Hyperlipidemia, Hypertension, Memory Impairment, Pulmonary Embolus (PE), Respiratory Disorder, Sleep Apnea/CPAP/BIPAP Additional Past Medical History / Comment(s): Pt diagnosed with covid 10/23/20 at [facility]. Pt recently admitted to [facility] on 10/16/20 with acute exacerbation COPD/exacerbation CHF/acute on chronic hypoxic respiratory failure/UTI. Other hx: Cognitively delayed, CAD/triple vessel disease-recently seen by Dr. Anil figueroa and ana rosa stated they next need to be seen by Dr. Mar, DIETER with Cpap, wears O2 at 2L/ATC now, colitis, IBS, UTIs, muscle weakness, ROL states pt is currently nonambulatory. History of Any Multi-Drug Resistant Organisms: None Reported Past Surgical History: Adenoidectomy, Heart Catheterization, Orthopedic Surgery, Prostate Surgery, Tonsillectomy Additional Past Surgical History / Comment(s): 08/2020 cardiac cath, TURP, vasectomy, colonoscopy, L wrist surgery, L thumb tendon surgery Past Anesthesia/Blood Transfusion Reactions: No Reported Reaction Smoking Status: Former smoker - Past Family History Mother Family Medical History: Cancer Additional Family Medical History / Comment(s): Mental health issues. Father Family Medical History: Cancer Medications and Allergies Home Medications Medication Instructions Recorded Confirmed Type Atorvastatin [Lipitor] 40 mg PO HS 09/12/20 11/02/20 History Levocetirizine Dihydrochloride 5 mg PO DAILY 09/27/20 11/02/20 History [Xyzal] Losartan [Cozaar] 25 mg PO HS 09/27/20 11/02/20 History Warfarin [Coumadin] 5 mg PO MOTUWEFRSA@2100 09/27/20 11/02/20 History Albuterol Nebulized [Ventolin 2.5 mg INHALATION 10/16/20 11/02/20 History Nebulized] RT-QID@08,12,16,20 Fluticasone Nasal [place] [Flonase 2 spr EA NOSTRIL DAILY 10/16/20 11/02/20 History Nasal [place]] Ipratropium [place] [Atrovent Hfa] 2 puff INHALATION RT-DAILY 10/16/20 11/02/20 History Loperamide [Imodium] 2 mg PO DAILY PRN 10/16/20 11/02/20 History Metoprolol Tartrate [Lopressor] 12.5 mg PO DAILY 10/16/20 11/02/20 History ALPRAZolam [Xanax] 0.25 mg PO HS PRN 3 Days #3 tab 10/21/20 11/02/20 Rx Furosemide [Lasix] 40 mg PO BID #60 tablet 10/21/20 11/02/20 Rx amLODIPine [Norvasc] 5 mg PO DAILY tab 10/21/20 11/02/20 Rx Ascorbic Acid [Vitamin C] 500 mg PO DAILY 11/02/20 11/02/20 History Azithromycin [Zithromax] 250 mg PO DAILY 11/02/20 11/02/20 History Omeprazole 20 mg PO BID 11/02/20 11/02/20 History Warfarin [Coumadin] 5 mg PO ONCE 11/02/20 11/02/20 History Zinc 50 mg PO DAILY 11/02/20 11/02/20 History predniSONE See Taper PO DIRECTED 11/02/20 11/02/20 History Allergies Allergy/AdvReac Type Severity Reaction Status Date / Time No Known Allergies Allergy Verified 11/02/20 22:09 Physical Exam Vitals: Vital Signs Temp Pulse Pulse Resp BP BP BP 11/04/20 12:01 94 29 H 131/74 11/04/20 09:02 92 11/04/20 08:50 92 11/04/20 07:45 28 H 11/04/20 07:16 98.2 F 90 28 H 121/73 11/04/20 01:55 98.8 F 86 26 H 110/80 11/03/20 22:56 98.1 F 85 22 109/82 11/03/20 19:24 92 11/03/20 19:15 92 11/03/20 15:53 92 11/03/20 15:50 11/03/20 15:49 89 11/03/20 14:37 96.6 F L 89 18 111/75 11/03/20 12:22 98.5 F 84 20 123/84 11/03/20 12:18 85 18 123/84 Pulse Ox 11/04/20 12:01 94 L 11/04/20 09:02 11/04/20 08:50 91 L 11/04/20 07:45 11/04/20 07:16 96 11/04/20 01:55 90 L 11/03/20 22:56 92 L 11/03/20 19:24 11/03/20 19:15 11/03/20 15:53 11/03/20 15:50 99 11/03/20 15:49 11/03/20 14:37 97 11/03/20 12:22 96 11/03/20 12:18 94 L Intake and Output 11/03/20 11/04/20 11/04/20 22:59 06:59 14:59 Intake Total 0 47.671 53.977 Output Total 800 200 Balance -800 47.671 -146.023 Intake: Intake, IV Titration 0 47.671 53.977 Amount Heparin Sod,Pork in 0.45% 0 47.671 53.977 NaCl 25,000 unit In 0.45 % NaCl 1 250ml.bag @ 8.88 UNITS/KG/HR 9.999 mls/hr IV .Q24H [facility] Rx#: [id number] Output: Urine 800 200 Other: Voiding Method Urinal Diaper Incontinent # Voids 1 1 Weight 112.6 kg Results 11/04/20 05:48 11/03/20 10:53 Cardiac Enzymes 11/04/20 Range/Units 07:50 Lactate Dehydrogenase 653 H (313-618) U/L Coagulation 11/03/20 11/04/20 11/04/20 Range/Units 10:53 01:26 05:48 PT 14.4 H 14.8 H (9.0-12.0) sec APTT 39.1 H (22.0-30.0) sec 11/04/20 Range/Units 07:50 PT (9.0-12.0) sec APTT 113.5 H* (22.0-30.0) sec CBC 11/04/20 Range/Units 05:48 WBC 5.5 (3.8-10.6) k/uL RBC 4.85 (4.30-5.90) m/uL Hgb 15.0 (13.0-17.5) gm/dL Hct 45.4 (39.0-53.0) % Plt Count 105 L (150-450) k/uL Current Medications Generic Name Dose Route Start Last Admin Trade Name Freq PRN Reason Stop Dose Admin Acetaminophen 650 mg 11/03/20 01:40 11/03/20 10:15 Acetaminophen Tab 325 Mg Tab PO 650 mg Q6HR PRN Administration Mild Pain or Fever > 100.5 Albuterol Sulfate 2.5 mg 11/03/20 08:00 11/04/20 12:10 Albuterol Nebulized 2.5 Mg/3 Ml INHALATION Not Given RT-QID@08,,, ALIREZA Alprazolam 0.25 mg 11/03/20 07:22 11/04/20 03:03 Alprazolam 0.25 Mg Tab PO 0.25 mg HS PRN Administration Anxiety Amlodipine Besylate 5 mg 11/03/20 09:00 11/04/20 08:58 Amlodipine 5 Mg Tab PO 5 mg DAILY ALIREZA Administration Ascorbic Acid 500 mg 11/03/20 09:00 11/04/20 08:57 Ascorbic Acid 500 Mg Tab PO 500 mg DAILY ALIREZA Administration Atorvastatin Calcium 40 mg 11/03/20 21:00 11/03/20 22:50 Atorvastatin 40 Mg Tab PO 40 mg HS ALIREZA Administration Fluticasone Propionate 2 spray 11/03/20 09:00 11/04/20 08:51 Fluticasone 50mcg/[place] Nasal 16gm EA NOSTRIL Not Given DAILY ALIREZA Furosemide 40 mg 11/03/20 09:00 11/04/20 08:58 Furosemide 40 Mg Tab PO 40 mg BID ALIREZA Administration Sodium Chloride 1,000 mls @ 75 mls/hr 11/03/20 08:00 11/03/20 22:50 Saline 0.9% IV 75 mls/hr .[id number] ALIREZA Administration Ceftriaxone Sodium 2 gm/ 50 mls @ 100 mls/hr 11/04/20 09:00 11/04/20 08:55 Sodium Chloride IVPB 100 mls/hr Q24HR ALIREZA Administration Azithromycin 500 mg/ Sodium 250 mls @ 250 mls/hr 11/04/20 09:30 11/04/20 10:35 Chloride IVPB 250 mls/hr DAILY ALIREZA Administration Ipratropium [place] 0.5 mg 11/03/20 08:00 11/04/20 08:50 Ipratropium 0.5 Mg/2.5 Ml Nebu INHALATION 0.5 mg RT-DAILY ALIREZA Administration Loperamide HCl 2 mg 11/03/20 07:22 Loperamide 2 Mg Cap PO DAILY PRN Diarrhea Loratadine 5 mg 11/03/20 09:00 11/04/20 08:57 Loratadine 10 Mg Tab PO 5 mg DAILY ALIREZA Administration Losartan Potassium 25 mg 11/03/20 21:00 11/03/20 22:50 Losartan 25 Mg Tab PO 25 mg HS ALIREZA Administration Metoprolol Tartrate 12.5 mg 11/03/20 09:00 11/04/20 08:55 Metoprolol Tartrate 25 Mg Tab PO 12.5 mg DAILY ALIREZA Administration Miscellaneous Information 0 each 11/03/20 10:10 Warfarin Per Pharmacy MISCELLANE DIRECTED PRN ANTICOAG Naloxone HCl 0.2 mg 11/03/20 01:40 Naloxone 0.4 Mg/Ml 1 Ml Vial IV Q2M PRN Opioid Reversal Pantoprazole Sodium 40 mg 11/03/20 09:00 11/04/20 08:58 Pantoprazole 40 Mg Tablet PO 40 mg DAILY ALIREZA Administration Prednisone 10 mg 11/04/20 09:00 11/04/20 08:57 Prednisone 10 Mg Tab PO 11/07/20 09:01 10 mg DAILY ALIREZA Administration Zinc Sulfate 220 mg 11/03/20 10:45 11/04/20 08:57 Zinc Sulfate 220 Mg Cap PO 220 mg DAILY ALIREZA Administration Intake and Output 11/03/20 11/04/20 11/04/20 22:59 06:59 14:59 Intake Total 0 47.671 53.977 Output Total 800 200 Balance -800 47.671 -146.023 Intake: Intake, IV Titration 0 47.671 53.977 Amount Heparin Sod,Pork in 0.45% 0 47.671 53.977 NaCl 25,000 unit In 0.45 % NaCl 1 250ml.bag @ 8.88 UNITS/KG/HR 9.999 mls/hr IV .Q24H [facility] Rx#: [id number] Output: Urine 800 200 Other: Voiding Method Urinal Diaper Incontinent # Voids 1 1 Weight 112.6 kg 11/04/20 05:48 11/03/20 10:53
--- NOTE | 2020-11-04 12:39 | P.CONS ---
History of Present Illness - Reason for Consult Consult date: 11/04/20 wound care - History of Present Illness This is a 75-year-old patient being seen in an ER 22 for a nonhealing ulceration to the coccyx. Upon questioning the patient denies having any ulceration T is not having any discomfort or pain to the site. Continue with the nurse no ulcerations were noted. There is maceration noted to the coccyx area. She has not been utilizing any dressings to the site. Patient's past medical history includes coronary artery disease, heart failure, COPD, dementia, DVT, hyperlipidemia, hypertension, pulmonary embolism. Review of Systems Review Of Systems: Constitutional: No fever, no chills, no night sweats. No weight change. No weakness, fatigue or lethargy. No daytime sleepiness. Integumentary: Denies wounds, no lesions. No rash or pruritus. No unusual bruising. No change in hair or nails. 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 Pt recently admitted to [facility] on 10/16/20 with acute exacerbation COPD/exacerbation CHF/acute on chronic hypoxic respiratory failure/UTI. Other hx: Cognitively delayed, CAD/triple vessel disease-recently seen by Dr. Mcdonough and ana rosa stated they next need to be seen by Dr. Mar, DIETER with Cpap, wears O2 at 2L/ATC now, colitis, IBS, UTIs, muscle weakness, ROL states pt is currently nonambulatory. History of Any Multi-Drug Resistant Organisms: None Reported Past Surgical History: Adenoidectomy, Heart Catheterization, Orthopedic Surgery, Prostate Surgery, Tonsillectomy Additional Past Surgical History / Comment(s): 08/2020 cardiac cath, TURP, vasectomy, colonoscopy, L wrist surgery, L thumb tendon surgery Past Anesthesia/Blood Transfusion Reactions: No Reported Reaction Smoking Status: Former smoker - Past Family History Mother Family Medical History: Cancer Additional Family Medical History / Comment(s): Mental health issues. Father Family Medical History: Cancer Medications and Allergies Home Medications Medication Instructions Recorded Confirmed Type Atorvastatin [Lipitor] 40 mg PO HS 10/17/20 12/07/20 History Levocetirizine Dihydrochloride 5 mg PO DAILY 09/27/20 11/02/20 History [Xyzal] Losartan [Cozaar] 25 mg PO HS 09/27/20 11/02/20 History Warfarin [Coumadin] 5 mg PO MOTUWEFRSA@2100 09/27/20 11/02/20 History Albuterol Nebulized [Ventolin 2.5 mg INHALATION 10/16/20 11/02/20 History Nebulized] RT-QID@,, Fluticasone Nasal [place] [Flonase 2 spr EA NOSTRIL DAILY 10/16/20 11/02/20 His tory Nasal [place]] Ipratropium [place] [Atrovent Hfa] 2 puff INHALATION RT-DAILY 10/16/20 11/02/20 History Loperamide [Imodium] 2 mg PO DAILY PRN 10/16/20 11/02/20 History Metoprolol Tartrate [Lopressor] 12.5 mg PO DAILY 10/16/20 11/02/20 History ALPRAZolam [Xanax] 0.25 mg PO HS PRN 3 Days #3 tab 10/21/20 11/02/20 Rx Furosemide [Lasix] 40 mg PO BID #60 tablet 10/21/20 11/02/20 Rx amLODIPine [Norvasc] 5 mg PO DAILY tab 10/21/20 11/02/20 Rx Ascorbic Acid [Vitamin C] 500 mg PO DAILY 11/02/20 11/02/20 History Azithromycin [Zithromax] 250 mg PO DAILY 11/02/20 11/02/20 History Omeprazole 20 mg PO BID 11/02/20 11/02/20 History Warfarin [Coumadin] 5 mg PO ONCE 11/02/20 11/02/20 History Zinc 50 mg PO DAILY 11/02/20 11/02/20 History predniSONE See Taper PO DIRECTED 11/02/20 11/02/20 History Allergies Allergy/AdvReac Type Severity Reaction Status Date / Time No Known Allergies Allergy Verified 11/02/20 22:09 Physical Exam Vitals: Vital Signs Temp Pulse Pulse Resp BP BP BP 11/04/20 12:01 94 29 H 131/74 11/04/20 09:02 92 11/04/20 08:50 92 11/04/20 07:45 28 H 11/04/20 07:16 98.2 F 90 28 H 121/73 11/04/20 01:55 98.8 F 86 26 H 110/80 11/03/20 22:56 98.1 F 85 22 109/82 11/03/20 19:24 92 11/03/20 19:15 92 11/03/20 15:53 92 11/03/20 15:50 11/03/20 15:49 89 11/03/20 14:37 96.6 F L 89 18 111/75 Pulse Ox 11/04/20 12:01 94 L 11/04/20 09:02 11/04/20 08:50 91 L 11/04/20 07:45 11/04/20 07:16 96 11/04/20 01:55 90 L 11/03/20 22:56 92 L 11/03/20 19:24 11/03/20 19:15 11/03/20 15:53 11/03/20 15:50 99 11/03/20 15:49 11/03/20 14:37 97 Intake and Output 11/03/20 11/04/20 11/04/20 22:59 06:59 14:59 Intake Total 0 47.671 53.977 Output Total 800 200 Balance -800 47.671 -146.023 Intake: Intake, IV Titration 0 47.671 53.977 Amount Heparin Sod,Pork in 0.45% 0 47.671 53.977 NaCl 25,000 unit In 0.45 % NaCl 1 250ml.bag @ 8.88 UNITS/KG/HR 9.999 mls/hr IV .Q24H [facility] Rx#: [id number] Output: Urine 800 200 Other: Voiding Method Urinal Diaper Incontinent # Voids 1 1 Weight 112.6 kg Patient is not willing to have examination performed. Discussing with the nurse, nurse states that no open ulcerations were noted to the coccyx. No drainage. Nurse states that maceration is noted and she applied zinc barrier cream. Results CBC & Chem 7: 11/04/20 05:48 11/04/20 05:48 Labs: Abnormal Lab Results - Last 24 Hours (Table) 11/03/20 11/03/20 11/04/20 Range/Units 10:53 15:26 01:26 Plt Count (150-450) k/uL Lymphocytes # (1.0-4.8) k/uL PT 14.4 H (9.0-12.0) sec INR 1.5 H (<1.2) APTT 39.1 H (22.0-30.0) sec Fibrinogen (200-500) mg/dL ABG pH 7.46 H (7.35-7.45) ABG pO2 74 L (83-108) mmHg ABG HCO3 28 H (21-25) mmol/L ABG Total CO2 30 H (19-24) mmol/L BUN/Creatinine Ratio (12.00-20.00) Ratio Glucose (70-110) mg/dL Plasma Lactic Acid Scooter (0.7-2.0) mmol/L Calcium (8.7-10.3) mg/dL AST (14-35) U/L Lactate Dehydrogenase (313-618) U/L Creatine Kinase (55-170) U/L C-Reactive Protein (<10.0) mg/L Total Protein (6.2-8.2) g/dL Albumin (3.80-4.90) g/dL 11/04/20 11/04/20 11/04/20 Range/Units 05:48 05:48 05:48 Plt Count 105 L (150-450) k/uL Lymphocytes # 0.7 L (1.0-4.8) k/uL PT 14.8 H (9.0-12.0) sec INR 1.41 H (<1.2) APTT (22.0-30.0) sec Fibrinogen (200-500) mg/dL ABG pH (7.35-7.45) ABG pO2 (83-108) mmHg ABG HCO3 (21-25) mmol/L ABG Total CO2 (19-24) mmol/L BUN/Creatinine Ratio 27.78 H (12.00-20.00) Ratio Glucose 126 H (70-110) mg/dL Plasma Lactic Acid Scooter (0.7-2.0) mmol/L Calcium 7.7 L (8.7-10.3) mg/dL AST 40 H (14-35) U/L Lactate Dehydrogenase (313-618) U/L Creatine Kinase (55-170) U/L C-Reactive Protein (<10.0) mg/L Total Protein 4.8 L (6.2-8.2) g/dL Albumin 3.10 L (3.80-4.90) g/dL 11/04/20 11/04/20 11/04/20 Range/Units 07:50 07:50 07:50 Plt Count (150-450) k/uL Lymphocytes # (1.0-4.8) k/uL PT (9.0-12.0) sec INR (<1.2) APTT 113.5 H* (22.0-30.0) sec Fibrinogen 521 H (200-500) mg/dL ABG pH (7.35-7.45) ABG pO2 (83-108) mmHg ABG HCO3 (21-25) mmol/L ABG Total CO2 (19-24) mmol/L BUN/Creatinine Ratio (12.00-20.00) Ratio Glucose (70-110) mg/dL Plasma Lactic Acid Scooter 2.1 H* (0.7-2.0) mmol/L Calcium (8.7-10.3) mg/dL AST (14-35) U/L Lactate Dehydrogenase 653 H (313-618) U/L Creatine Kinase 494 H (55-170) U/L C-Reactive Protein 60.8 H (<10.0) mg/L Total Protein (6.2-8.2) g/dL Albumin (3.80-4.90) g/dL 11/04/20 Range/Units 10:51 Plt Count (150-450) k/uL Lymphocytes # (1.0-4.8) k/uL PT (9.0-12.0) sec INR (<1.2) APTT (22.0-30.0) sec Fibrinogen (200-500) mg/dL ABG pH (7.35-7.45) ABG pO2 (83-108) mmHg ABG HCO3 (21-25) mmol/L ABG Total CO2 (19-24) mmol/L BUN/Creatinine Ratio (12.00-20.00) Ratio Glucose (70-110) mg/dL Plasma Lactic Acid Scooter 3.1 H* (0.7-2.0) mmol/L Calcium (8.7-10.3) mg/dL AST (14-35) U/L Lactate Dehydrogenase (313-618) U/L Creatine Kinase (55-170) U/L C-Reactive Protein (<10.0) mg/L Total Protein (6.2-8.2) g/dL Albumin (3.80-4.90) g/dL Microbiology - Last 24 Hours (Table) 11/03/20 00:27 Urine Culture - Final Urine,Clean Catch 11/02/20 22:32 Blood Culture - Preliminary Blood No Growth after 24 hours Assessment and Plan (1) Maceration of skin Current Visit: Yes Status: Acute Code(s): L98.8 - OTH DISRD OF THE SKIN AND SUBCUTANEOUS TISSUE SNOMED Code(s): 6342701 Plan: No open ulcerations were noted. Continue to using zinc barrier Cream as needed. Thank you for the consultation any questions please contact the wound care center DNP note has been reviewed and discussed with Dr. Shore and the impression and plan of care has been directed as dictated.
--- NOTE | 2020-11-04 15:20 | P.CNPUL ---
History of Present Illness Consult date: 11/04/20 Requesting physician: Alvin Mott Reason for consult: dyspnea Chief complaint: Dyspnea, cough, COVID 19 infection, urinary tract infection History of present illness: 75-year-old white male who had a recent hospitalization for acute exacerbation of COPD and acute exacerbation of CHF with diastolic dysfunction, has an extensive medical history including morbid obesity, obstructive sleep apnea, on BiPAP, COPD, wears oxygen on as-needed basis, bipolar disorder, hyperlipidemia, BPH, previous history of urinary tract infections, chronic smoker, and previous history of pulmonary embolism on long-term anticoagulation with warfarin. Baseline FEV1 value is 55% of predicted. Maintained on Advair and DuoNeb nebulized treatments. He is on CPAP with a pressure of APAP pressure of 16 with a C-Flex of 3. Following discharge he went home however did end up in the rehab facility, [facility]. Was recently diagnosed with COVID 19 on 10/23/2020. On 11/02/2020 patient was transported from a skilled nursing per EMS to the emergency department for evaluation of altered mental status, nausea and vomiting, weakness, progressive shortness of breath. Chest x-ray showed mild pulmonary interstitial fibrosis, initial lab work showed for pain and with a lymphocyte, 0.5, white blood cell count of 11.8, hemoglobin of 17.6, INR is 1.3, sodium is 132, potassium is 4.4, chloride is 92, CO2 is 34, BUN of 21, creatinine is 1.09, lactic acid was 2.0, troponin was 0.025, ammonia level was less than 9, pro calcitonin level was negative at 0.05, urinalysis showed evidence of infection, patient was started on empiric antibiotic coverage with azithromycin and Rocephin, CT angios showed grossly clear lungs, no concerning parenchymal mass or nodule, probably dependent atelectatic changes, and no filling defect in the left lower lobe with the possibility of cardiac emboli. he is on Coumadin for chronic anticoagulation, INR is 1.3. Blood and urine cultures have shown no growth. Patient had a fever on initial presentation, his been afebrile in the last 24 hours, his brain CT showed cerebral atrophy but no acute intracranial abnormality. He remains on 4 L of oxygen, his pulse ox is 94%, he has conversational dyspnea, but no acute distress, no complaints of chest discomfort, received IV hydration, patient seems to have improved, patient is drowsy but he is able to wake up in the provide some history, follow-up chest x-ray today shows minimal patchy basilar density Review of Systems All systems: negative Constitutional: Reports lethargy, Reports weakness, Denies chills, Denies fever Eyes: denies blurred vision, denies pain Ears, nose, mouth and throat: Denies headache, Denies sore throat Cardiovascular: Denies chest pain, Denies shortness of breath Respiratory: Reports dyspnea, Denies cough Gastrointestinal: Denies abdominal pain, Denies diarrhea, Denies nausea, Denies vomiting Musculoskeletal: Denies myalgias Integumentary: Denies pruritus, Denies rash Neurological: Reports change in mentation, Reports weakness, Denies numbness Psychiatric: Denies anxiety, Denies depression Endocrine: Denies fatigue, Denies weight change Past Medical History Past Medical History: Asthma, Coronary Artery Disease (CAD), Heart Failure, COPD, Dementia, Deep Vein Thrombosis (DVT), Hyperlipidemia, Hypertension, Memory Impairment, Pulmonary Embolus (PE), Respiratory Disorder, Sleep Apnea/CPAP/BIPAP Additional Past Medical History / Comment(s): Pt diagnosed with covid 10/23/20 at [facility]. Pt recently admitted to [facility] on 10/16/20 with acute exacerbation COPD/exacerbation CHF/acute on chronic hypoxic respiratory failure/UTI. Other hx: Cognitively delayed, CAD/triple vessel disease-recently seen by Dr. Mcdonough and ana rosa stated they next need to be seen by Dr. Mar, DIETER with Cpap, wears O2 at 2L/ATC now, colitis, IBS, UTIs, muscle weakness, [facility] states pt is currently nonambulatory. History of Any Multi-Drug Resistant Organisms: None Reported Past Surgical History: Adenoidectomy, Heart Catheterization, Orthopedic Surgery, Prostate Surgery, Tonsillectomy Additional Past Surgical History / Comment(s): 08/2020 cardiac cath, TURP, vasectomy, colonoscopy, L wrist surgery, L thumb tendon surgery Past Anesthesia/Blood Transfusion Reactions: No Reported Reaction Smoking Status: Former smoker - Past Family History Mother Family Medical History: Cancer Additional Family Medical History / Comment(s): Mental health issues. Father Family Medical History: Cancer Medications and Allergies Home Medications Medication Instructions Recorded Confirmed Type Atorvastatin [Lipitor] 40 mg PO HS 09/12/20 11/02/20 History Levocetirizine Dihydrochloride 5 mg PO DAILY 09/27/20 11/02/20 History [Xyzal] Losartan [Cozaar] 25 mg PO HS 09/27/20 11/02/20 History Warfarin [Coumadin] 5 mg PO [id number] 09/27/20 11/02/20 History Albuterol Nebulized [Ventolin 2.5 mg INHALATION 10/16/20 11/02/20 History Nebulized] RT-QID@,, Fluticasone Nasal [place] [Flonase 2 spr EA NOSTRIL DAILY 10/16/20 11/02/20 History Nasal [place]] Ipratropium [place] [Atrovent Hfa] 2 puff INHALATION RT-DAILY 10/16/20 11/02/20 History Loperamide [Imodium] 2 mg PO DAILY PRN 10/16/20 11/02/20 History Metoprolol Tartrate [Lopressor] 12.5 mg PO DAILY 10/16/20 11/02/20 History ALPRAZolam [Xanax] 0.25 mg PO HS PRN 3 Days #3 tab 10/21/20 11/02/20 Rx Furosemide [Lasix] 40 mg PO BID #60 tablet 10/21/20 11/02/20 Rx amLODIPine [Norvasc] 5 mg PO DAILY tab 10/21/20 11/02/20 Rx Ascorbic Acid [Vitamin C] 500 mg PO DAILY 11/02/20 11/02/20 History Azithromycin [Zithromax] 250 mg PO DAILY 11/02/20 11/02/20 History Omeprazole 20 mg PO BID 11/02/20 11/02/20 History Warfarin [Coumadin] 5 mg PO ONCE 11/02/20 11/02/20 History Zinc 50 mg PO DAILY 11/02/20 11/02/20 History predniSONE See Taper PO DIRECTED 11/02/20 11/02/20 History Allergies Allergy/AdvReac Type Severity Reaction Status Date / Time No Known Allergies Allergy Verified 11/02/20 22:09 Physical Exam Vitals: Vital Signs Temp Pulse Pulse Resp BP BP BP 11/04/20 12:01 94 29 H 131/74 11/04/20 09:02 92 11/04/20 08:50 92 11/04/20 07:45 28 H 11/04/20 07:16 98.2 F 90 28 H 121/73 11/04/20 01:55 98.8 F 86 26 H 110/80 11/03/20 22:56 98.1 F 85 22 109/82 11/03/20 19:24 92 11/03/20 19:15 92 11/03/20 15:53 92 11/03/20 15:50 11/03/20 15:49 89 Pulse Ox 11/04/20 12:01 94 L 11/04/20 09:02 11/04/20 08:50 91 L 11/04/20 07:45 11/04/20 07:16 96 11/04/20 01:55 90 L 11/03/20 22:56 92 L 11/03/20 19:24 11/03/20 19:15 11/03/20 15:53 11/03/20 15:50 99 11/03/20 15:49 Intake and Output 11/03/20 11/04/20 11/04/20 22:59 06:59 14:59 Intake Total 0 47.671 53.977 Output Total 800 200 Balance -800 47.671 -146.023 Intake: Intake, IV Titration 0 47.671 53.977 Amount Heparin Sod,Pork in 0.45% 0 47.671 53.977 NaCl 25,000 unit In 0.45 % NaCl 1 250ml.bag @ 8.88 UNITS/KG/HR 9.999 mls/hr IV .Q24H [facility] Rx#: [id number] Output: Urine 800 200 Other: Voiding Method Urinal Diaper Incontinent # Voids 1 1 Weight 112.6 kg GENERAL EXAM: 75-year-old white male, on 4 L of oxygen with pulse ox of 94%, resting in the bed, in the emergency department, awaiting a bed upstairs he is drowsy but easily arousable, he is able to provide history, denies any acute distress, comfortable in no apparent distress. HEAD: Normocephalic/atraumatic. EYES: Normal reaction of pupils, equal size. Conjunctiva pink, sclera white. NOSE: Clear with pink turbinates. THROAT: No erythema or exudates. NECK: No masses, no JVD, no thyroid enlargement, no adenopathy. CHEST: No chest wall deformity. Symmetrical expansion. LUNGS: Equal air entry with coarse bibasilar crackles, but no wheeze, rhonchi or dullness. CVS: Regular rate and rhythm, normal S1 and S2, no gallops, no murmurs, no rubs ABDOMEN: Soft, nontender. No hepatosplenomegaly, normal bowel sounds, no guarding or rigidity. EXTREMITIES: No clubbing, no edema, no cyanosis, 2+ pulses and upper and lower extremities. MUSCULOSKELETAL: Muscle strength and tone normal. SPINE: No scoliosis or deformity SKIN: No rashes CENTRAL NERVOUS SYSTEM: Alert and oriented -3. No focal deficits, tone is normal in all 4 extremities. PSYCHIATRIC: Alert and oriented -3. Appropriate affect. Intact judgment and insight. Results - Laboratory Findings CBC and BMP: 11/04/20 05:48 11/04/20 05:48 ABG ABG pH 7.46 (7.35-7.45) H 11/03/20 15:26 ABG pCO2 40 mmHg (35-45) 11/03/20 15:26 ABG pO2 74 mmHg (83-108) L 11/03/20 15:26 ABG O2 Saturation 96.2 % (94-97) 11/03/20 15:26 PT/INR, D-dimer PT 14.8 sec (9.9-11.9) H 11/04/20 05:48 INR 1.41 (0.90-1.11) H 11/04/20 05:48 D-Dimer 0.49 mg/L FEU (<0.60) 11/04/20 07:50 Abnormal lab findings: Abnormal Labs 11/02/20 11/02/20 11/02/20 22:32 22:32 22:32 WBC 11.8 H Hgb 17.6 H Plt Count Neutrophils # 10.6 H Lymphocytes # 0.5 L PT 13.3 H INR 1.3 H APTT 30.9 H Fibrinogen ABG pH ABG pO2 ABG HCO3 ABG Total CO2 Sodium 132 L Chloride 92 L Carbon Dioxide 34 H BUN 21 H BUN/Creatinine Ratio Glucose 109 H Plasma Lactic Acid Scooter Calcium AST Lactate Dehydrogenase Creatine Kinase C-Reactive Protein Total Protein Albumin 3.4 L Urine Protein Ur Leukocyte Esterase Urine WBC Urine Mucus 11/03/20 11/03/20 11/03/20 00:27 10:53 10:53 WBC Hgb Plt Count 120 L Neutrophils # Lymphocytes # 0.7 L PT INR APTT 129.2 H* Fibrinogen ABG pH ABG pO2 ABG HCO3 ABG Total CO2 Sodium Chloride Carbon Dioxide BUN BUN/Creatinine Ratio Glucose Plasma Lactic Acid Scooter Calcium AST Lactate Dehydrogenase Creatine Kinase C-Reactive Protein Total Protein Albumin Urine Protein Trace H Ur Leukocyte Esterase Large H Urine WBC 37 H Urine Mucus Rare H 11/03/20 11/03/20 11/03/20 10:53 10:53 15:26 WBC Hgb Plt Count Neutrophils # Lymphocytes # PT 14.4 H INR 1.5 H APTT Fibrinogen ABG pH 7.46 H ABG pO2 74 L ABG HCO3 28 H ABG Total CO2 30 H Sodium 136 L Chloride 97 L Carbon Dioxide 32 H BUN 25 H BUN/Creatinine Ratio Glucose 111 H Plasma Lactic Acid Scooter Calcium AST Lactate Dehydrogenase Creatine Kinase C-Reactive Protein Total Protein Albumin 3.4 L Urine Protein Ur Leukocyte Esterase Urine WBC Urine Mucus 11/04/20 11/04/20 11/04/20 01:26 05:48 05:48 WBC Hgb Plt Count 105 L Neutrophils # Lymphocytes # 0.7 L PT 14.8 H INR 1.41 H APTT 39.1 H Fibrinogen ABG pH ABG pO2 ABG HCO3 ABG Total CO2 Sodium Chloride Carbon Dioxide BUN BUN/Creatinine Ratio Glucose Plasma Lactic Acid Scooter Calcium AST Lactate Dehydrogenase Creatine Kinase C-Reactive Protein Total Protein Albumin Urine Protein Ur Leukocyte Esterase Urine WBC Urine Mucus 11/04/20 11/04/20 11/04/20 05:48 07:50 07:50 WBC Hgb Plt Count Neutrophils # Lymphocytes # PT INR APTT 113.5 H* Fibrinogen 521 H ABG pH ABG pO2 ABG HCO3 ABG Total CO2 Sodium Chloride Carbon Dioxide BUN BUN/Creatinine Ratio 27.78 H Glucose 126 H Plasma Lactic Acid Scooter 2.1 H* Calcium 7.7 L AST 40 H Lactate Dehydrogenase Creatine Kinase C-Reactive Protein Total Protein 4.8 L Albumin 3.10 L Urine Protein Ur Leukocyte Esterase Urine WBC Urine Mucus 11/04/20 11/04/20 07:50 10:51 WBC Hgb Plt Count Neutrophils # Lymphocytes # PT INR APTT Fibrinogen ABG pH ABG pO2 ABG HCO3 ABG Total CO2 Sodium Chloride Carbon Dioxide BUN BUN/Creatinine Ratio Glucose Plasma Lactic Acid Scooter 3.1 H* Calcium AST Lactate Dehydrogenase 653 H Creatine Kinase 494 H C-Reactive Protein 60.8 H Total Protein Albumin Urine Protein Ur Leukocyte Esterase Urine WBC Urine Mucus - Diagnostic Findings Chest x-ray: report reviewed, image reviewed CT scan - chest: report reviewed, image reviewed Assessment and Plan Plan: Assessment: #1. Acute on chronic hypoxic respiratory failure multifactorial, related to acute urinary tract infection with sepsis and COPD exacerbation, chest x-ray showed minimal patchy basilar density the possibility of atelectasis/infiltrates #2. Recent COVID 19 infection on 10/23/2020, CTA chest showed grossly clear lungs, and the possibility of recanalized left lower lobe pulmonary embolus or chronic emboli in the left lower lobe, and patient is on chronic anticoagulation in the form of warfarin for history of pulmonary embolisms #3. Recent hospitalization for acute COPD exacerbation, acute exacerbation of diastolic CHF #4. Coronary artery disease #5. COPD, moderately severe with baseline FEV1 of 55% of predicted, and patient whom ex-smoker, does have a [id number] smoking history, in remission for the last year #6. History of obstructive sleep apnea on CPAP #7. Hypertension #8. Hyperlipidemia #9. History of pulmonary embolism on Coumadin, INR was subtherapeutic on presentation #10. Previous history of urinary tract infections #11. Morbid obesity #12. Currently not ambulatory, going to rehab at the [facility] #13. Altered mental status, brain CT showed no acute findings, possibly related to acute metabolic encephalopathy #14. Bipolar disorder #15. Chronic back pain Plan: Chest x-ray and CT chest reviewed, showing questionable recanalized pulmonary embolus in the left lower lobe or possibility of chronic emboli, patient continues on warfarin, days INR is 1.4, but d-dimer is negative at 0.49. We will order bronchodilators, will continue with oral Decadron, patient is out of the window for Remdesivir, his pro-calcitonin level was low, we can discontinue the Zithromax, continue Rocephin for urinary tract infection, patient has been afebrile, vital signs have been stable, avoid benzodiazepines, anticholinergic, sedatives. Use BiPAP support with pressures of 10/5 and FiO2 to keep O2 sat at 90% of bedtime and as needed. We will continue supportive medical treatment, will continue to follow I performed a history & physical examination of the patient and discussed their management with my nurse practitioner, Erika Ayala. I reviewed the nurse practitioner's note and agree with the documented findings and plan of care. Lung sounds are positive for basilar rales. The findings and the impression was discussed with the patient. I attest to the documentation by the nurse practitioner. Time with Patient: Greater than 30
--- NOTE | 2020-11-04 15:53 | XR ---
EXAMINATION TYPE: XR chest 1V portable DATE OF EXAM: 11/04/2020 COMPARISON: 11/04/2020 HISTORY: Cough, shortness of breath TECHNIQUE: Single frontal view of the chest is obtained. FINDINGS: There remains bilateral coarsened interstitium and patchy bilateral areas of consolidation . By pleural thickening. Heart is enlarged. Underlying COPD suspected. No pneumothorax. IMPRESSION: 1. COPD with patchy basilar atelectasis or infiltrate similar to the prior exam. Correlate for chroni c interstitial lung disease versus interstitial pneumonitis or mild venous congestion.
[2020-11-04] MEDS ORDERED: WARFARIN 2 MG TAB PO ONE (18:00)
[2020-11-04 18:23] LABS: Ferritin 4180.3 ng/mL (22.0-322.0)
--- NOTE | 2020-11-04 20:37 | P.PN ---
Subjective Progress Note Date: 11/04/20 Principal diagnosis: dyspnea Cough Covid 19 infection Urinary tract infection 75-year-old male was transferred from care home facility due to the fact that the care home facility staff was concerned with the patient's acute change of mental status/generalized weakness/dyspnea/generalized malaise. Patient had extensive diagnostic workup in the emergency department revealing acute delirium possibly related to to underlying medical conditions and urinary tract infection.PATIENT HAS SIGNIFICANT MEDICAL HISTORY DEMENTIA,copd, chf WITH SYSTOLIC DYSFUNCTION, MORBID OBESITY, BIPOLAR DISORDER, OBSTRUCTIVE SLEEP APNEA ON bIpap,ASTHMA, CORONARY ARTERY DISEASE, dvt, HYPERLIPIDEMIA AND HYPERTENSION AND PULMONARY EMBOLISMS.PATIENT ABLE TO ANSWER QUESTIONS WITH FEW WORD SENTENCES APPROPRIATE TO PERSON PLACE AND TIME NOT CURRENTLY APPROPRIATE TO SITUATION. CONSULTATION WITH CARDIOLOGY AND PULMONOLOGY. Objective - Vital Signs Vital signs: Vital Signs Temp 98.3 F 11/04/20 18:55 Pulse 86 11/04/20 18:55 Resp 20 11/04/20 18:55 BP 112/77 11/04/20 18:55 Pulse Ox 93 L 11/04/20 18:55 Intake & Output 11/04/20 11/04/20 11/05/20 06:59 18:59 06:59 Intake Total 47.671 53.977 Output Total 800 200 Balance -752.329 -146.023 Intake: Intake, IV Titration 47.671 53.977 Amount Heparin Sod,Pork in 0.45% 47.671 53.977 NaCl 25,000 unit In 0.45 % NaCl 1 250ml.bag @ 8.88 UNITS/KG/HR 9.999 mls/hr IV .Q24H [facility] Rx#: [id number] Output: Urine 800 200 Other: Voiding Method Urinal Diaper Incontinent # Voids 1 - Constitutional General appearance: Present: mild distress - EENT Eyes: Present: EOMI, PERRLA ENT: Present: hard of hearing, pharyngeal erythema Ears: bilateral: normal - Neck Neck: Present: rigidity Carotids: bilateral: upstroke normal Thyroid: bilateral: normal size - Respiratory Details: TACHYPNEA Respiratory: bilateral: diminished (POSTERIOR LUNG [place]) - Cardiovascular Details: NORMAL SINUS RHYTHM WITH OCCASIONAL pvcS Heart rate: 86 Rhythm: regular Heart sounds: normal: S1, S2 - Peripheral edema ankle Peripheral Edema: bilateral: Trace - Peripheral pulses dorsalis pedis Peripheral Pulses: bilateral: Diminished radial pulse Peripheral Pulses: bilateral: Normal - Gastrointestinal General gastrointestinal: Present: normal bowel sounds - Integumentary Integumentary: Present: decreased turgor, pale - Neurologic Neurologic: Present: CNII-XII intact - Musculoskeletal Musculoskeletal: Present: generalized weakness - Psychiatric Psychiatric Comment(s): alert to person and place - Allied health notes Allied health notes reviewed: nursing - Labs CBC & Chem 7: 11/04/20 05:48 11/04/20 05:48 Labs: Abnormal Lab Results - Last 24 Hours (Table) 11/04/20 11/04/20 11/04/20 Range/Units 01:26 05:48 05:48 Plt Count 105 L (150-450) k/uL Lymphocytes # 0.7 L (1.0-4.8) k/uL PT 14.8 H (9.9-11.9) sec INR 1.41 H (0.90-1.11) APTT 39.1 H (22.0-30.0) sec Fibrinogen (200-500) mg/dL BUN/Creatinine Ratio (12.00-20.00) Ratio Glucose (70-110) mg/dL Plasma Lactic Acid Scooter (0.7-2.0) mmol/L Calcium (8.7-10.3) mg/dL Ferritin (22.0-322.0) ng/mL AST (14-35) U/L Lactate Dehydrogenase (313-618) U/L Creatine Kinase (55-170) U/L C-Reactive Protein (<10.0) mg/L Total Protein (6.2-8.2) g/dL Albumin (3.80-4.90) g/dL 11/04/20 11/04/20 11/04/20 Range/Units 05:48 07:50 07:50 Plt Count (150-450) k/uL Lymphocytes # (1.0-4.8) k/uL PT (9.9-11.9) sec INR (0.90-1.11) APTT 113.5 H* (22.0-30.0) sec Fibrinogen 521 H (200-500) mg/dL BUN/Creatinine Ratio 27.78 H (12.00-20.00) Ratio Glucose 126 H (70-110) mg/dL Plasma Lactic Acid Scooter 2.1 H* (0.7-2.0) mmol/L Calcium 7.7 L (8.7-10.3) mg/dL Ferritin (22.0-322.0) ng/mL AST 40 H (14-35) U/L Lactate Dehydrogenase (313-618) U/L Creatine Kinase (55-170) U/L C-Reactive Protein (<10.0) mg/L Total Protein 4.8 L (6.2-8.2) g/dL Albumin 3.10 L (3.80-4.90) g/dL 11/04/20 11/04/20 Range/Units 07:50 10:51 Plt Count (150-450) k/uL Lymphocytes # (1.0-4.8) k/uL PT (9.9-11.9) sec INR (0.90-1.11) APTT (22.0-30.0) sec Fibrinogen (200-500) mg/dL BUN/Creatinine Ratio (12.00-20.00) Ratio Glucose (70-110) mg/dL Plasma Lactic Acid Scooter 3.1 H* (0.7-2.0) mmol/L Calcium (8.7-10.3) mg/dL Ferritin 4180.3 H (22.0-322.0) ng/mL AST (14-35) U/L Lactate Dehydrogenase 653 H (313-618) U/L Creatine Kinase 494 H (55-170) U/L C-Reactive Protein 60.8 H (<10.0) mg/L Total Protein (6.2-8.2) g/dL Albumin (3.80-4.90) g/dL Microbiology - Last 24 Hours (Table) 11/03/20 00:27 Urine Culture - Final Urine,Clean Catch 11/02/20 22:32 Blood Culture - Preliminary Blood No Growth after 24 hours - Imaging and Cardiology Chest x-ray: report reviewed Assessment and Plan Assessment: Acute deliriumpossibly due to medical condition/urinary tract infection Acute urinary tract infectioncontinue IV Rocephin History of asthma History of coronary artery disease History of heart failure unspecified diastolic/systolic COPD without exacerbation Dementia History of DVTs Hyperlipidemia Hypertension History of pulmonary embolism Sleep apnea (1) Delirium due to general medical condition Current Visit: Yes Status: Acute Code(s): F05 - DELIRIUM DUE TO KNOWN PHYSIOLOGICAL CONDITION SNOMED Code(s): 4017951 (2) UTI (urinary tract infection) Narrative/Plan: Urinalysis reveals urinary tract infection awaiting culture and sensitivitycontinue IV Rocephin Current Visit: Yes Status: Acute Code(s): N39.0 - URINARY TRACT INFECTION, SITE NOT SPECIFIED SNOMED Code(s): 69441885 Plan: Acute deliriumpossibly due to medical condition/urinary tract infection Acute urinary tract infectioncontinue IV Rocephin-awaiting culture and sensitivity Continue consultation with pulmonary critical care for recommendations of COPD Continue consultation with cardiology for recommendations of mildly elevated troponins Continue home medications Continue medical management Time with Patient: Greater than 30
[2020-11-04] MEDS: SYMBICORT 160-4.5 MCG INHALER INHALATION SCH (22:14)
[2020-11-04] MEDS: ATORVASTATIN 40 MG TAB PO SCH (22:17)
[2020-11-04] MEDS: dexAMETHasone 2 MG TAB PO SCH (22:17)
[2020-11-04] MEDS: LOSARTAN 25 MG TAB PO SCH (22:17)
[2020-11-04] MEDS: SODIUM CHLORIDE 0.9% 1,000 ML IV SCH (22:18)
[2020-11-05] MEDS: SODIUM CHLORIDE 0.9% 1,000 ML IV SCH ×2 (06:00→08:36)
[2020-11-05 06:59] LABS: Basophils % (A) 0 %; Eosinophils % (A) 1 %; HCT 42.6 % (39.0-53.0); HGB 13.9 gm/dL (13.0-17.5); Lymphocytes # (A) 0.7 k/uL (1.0-4.8); Lymphocytes % (A) 15 %; MCH 30.4 pg (25.0-35.0); MCHC 32.6 g/dL (31.0-37.0); MCV 93.2 fL (80.0-100.0); Mean Platelet Volume 6.9; Monocytes # (A) 0.2 k/uL (0-1.0); Monocytes % (A) 4 %; Neutrophils # (A) 3.9 k/uL (1.3-7.7); Neutrophils % (A) 80 %; Platelet Count 101 k/uL (150-450); RBC 4.57 m/uL (4.30-5.90); RDW 13.8 % (11.5-15.5); WBC 4.8 k/uL (3.8-10.6)
[2020-11-05 07:11] LABS: ALT 44 U/L (4-49); AST 46 U/L (17-59); African American GFR (CKD) >90 (>60 ml/min/1.73 sqM); Albumin 2.4 g/dL (3.5-5.0); Alkaline Phosphatase 48 U/L (38-126); Anion Gap 0 mmol/L; Blood Urea Nitrogen 15 mg/dL (9-20); Calcium 7.1 mg/dL (8.4-10.2); Carbon Dioxide 36 mmol/L (22-30); Chloride 99 mmol/L (98-107); Globulin 2.4 g/dL; Glucose 105 mg/dL (74-99); Non-African American GFR(CKD) 84 (>60 ml/min/1.73 sqM); Potassium 3.2 mmol/L (3.5-5.1); Sodium 135 mmol/L (137-145); Total Bilirubin 0.6 mg/dL (0.2-1.3); Total Protein 4.8 g/dL (6.3-8.2)
[2020-11-05] MEDS ORDERED: Potassium Replacement Protocol 1 EACH MISC MISCELLANE PRN (08:24)
[2020-11-05] MEDS: IPRATROPIUM 0.5 MG/2.5 ML NEBU INHALATION SCH (08:27)
[2020-11-05] MEDS: SYMBICORT 160-4.5 MCG INHALER INHALATION SCH ×2 (08:27→21:03)
[2020-11-05] MEDS: ALBUTEROL NEBULIZED 2.5 MG/3 ML INHALATION SCH ×2 (08:27→12:22)
[2020-11-05] MEDS: METOPROLOL TARTRATE 25 MG TAB PO SCH (08:33)
[2020-11-05] MEDS: FUROSEMIDE 40 MG TAB PO SCH ×2 (08:33→21:12)
[2020-11-05] MEDS: ZINC SULFATE 220 MG CAP PO SCH (08:33)
[2020-11-05] MEDS: LORATADINE 10 MG TAB PO SCH (08:33)
[2020-11-05] MEDS: PANTOPRAZOLE 40 MG TABLET PO SCH (08:33)
[2020-11-05] MEDS: dexAMETHasone 2 MG TAB PO SCH (08:35)
[2020-11-05] MEDS: ASCORBIC ACID 500 MG TAB PO SCH (08:35)
[2020-11-05] MEDS: amLODIPine 5 MG TAB PO SCH (08:35)
[2020-11-05] MEDS: POTASSIUM CHLORIDE ER 20 MEQ TAB.ER PO SCH ×2 (08:46→12:27)
[2020-11-05] MEDS: FLUTICASONE 50MCG/SPRAY NASAL 16GM EA NOSTRIL SCH (09:23)
[2020-11-05] MEDS ORDERED: Magnesium Replacement Protocol 1 EACH MISC MISCELLANE PRN ×2 (09:34→11:03)
[2020-11-05 10:00] LABS: INR 1.4 (0.90-1.11); Prothrombin Time 14.7 sec (9.9-11.9)
[2020-11-05] MEDS: MAGNESIUM SULFATE-D5W PMX 1 GM in DEXTROSE/WATER 1 100ML.BAG IVPB SCH ×2 (12:20→14:10)
[2020-11-05] MEDS: ALBUTEROL HFA INHALER INHALATION SCH ×3 (13:51→21:03)
[2020-11-05 13:53] VITALS: BMI 32.7
--- NOTE | 2020-11-05 16:20 | P.PN ---
Subjective Progress Note Date: 11/05/20 On today's evaluation the patient is being seen for a follow-up. He continues to have some altered mentation. Doesn't seem to be significant amount of respiratory distress. He has advanced COPD P is oxygen dependent at home. He does some pursed of breathing which is his usual. He does have probably an underlying urine checked infection. The urine culture came back negative. The patient is currently on antibiotics broad-spectrum coverage. His pro-calcitonin level is not elevated. He remains on accommodation of Rocephin and Zithromax. He also is on Decadron 6 mg by mouth daily. He is still on anticoagulation and this has been continued with warfarin. His PT/INR is subtherapeutic. Objective - Vital Signs Vital signs: Vital Signs Temp 99.0 F 11/05/20 11:51 Pulse 88 11/05/20 11:51 Resp 17 11/05/20 11:51 BP 100/63 11/05/20 11:51 Pulse Ox 93 L 11/05/20 11:51 Intake & Output 11/04/20 11/05/20 11/05/20 18:59 06:59 18:59 Intake Total 53.977 Output Total 200 Balance -146.023 Weight 112.6 kg Intake: Intake, IV Titration 53.977 Amount Heparin Sod,Pork in 0.45% 53.977 NaCl 25,000 unit In 0.45 % NaCl 1 250ml.bag @ 8.88 UNITS/KG/HR 9.999 mls/hr IV .Q24H [facility] Rx#: [id number] Output: Urine 200 Other: Voiding Method Urinal Urinal Diaper Diaper Incontinent Incontinent # Voids 3 - Exam GENERAL EXAM: 75-year-old white male, on 4 L of oxygen with pulse ox of 94%, resting in the bed, in the emergency department, awaiting a bed upstairs he is drowsy but easily arousable, he is able to provide history, denies any acute distress, comfortable in no apparent distress. HEAD: Normocephalic/atraumatic. EYES: Normal reaction of pupils, equal size. Conjunctiva pink, sclera white. NOSE: Clear with pink turbinates. THROAT: No erythema or exudates. NECK: No masses, no JVD, no thyroid enlargement, no adenopathy. CHEST: No chest wall deformity. Symmetrical expansion. LUNGS: Equal air entry with coarse bibasilar crackles, but no wheeze, rhonchi or dullness. CVS: Regular rate and rhythm, normal S1 and S2, no gallops, no murmurs, no rubs ABDOMEN: Soft, nontender. No hepatosplenomegaly, normal bowel sounds, no guarding or rigidity. EXTREMITIES: No clubbing, no edema, no cyanosis, 2+ pulses and upper and lower extremities. MUSCULOSKELETAL: Muscle strength and tone normal. SPINE: No scoliosis or deformity SKIN: No rashes CENTRAL NERVOUS SYSTEM: Alert and oriented -3. No focal deficits, tone is normal in all 4 extremities. PSYCHIATRIC: Alert and oriented -3. Appropriate affect. I - Labs CBC & Chem 7: 11/05/20 06:37 11/05/20 06:37 Labs: Abnormal Lab Results - Last 24 Hours (Table) 11/04/20 11/05/20 11/05/20 Range/Units 07:50 06:37 06:37 Plt Count 101 L (150-450) k/uL Lymphocytes # 0.7 L (1.0-4.8) k/uL PT (9.9-11.9) sec INR (0.90-1.11) Sodium 135 L (137-145) mmol/L Potassium 3.2 L (3.5-5.1) mmol/L Carbon Dioxide 36 H (22-30) mmol/L Glucose 105 H (74-99) mg/dL Calcium 7.1 L (8.4-10.2) mg/dL Ferritin 4180.3 H (22.0-322.0) ng/mL Total Protein 4.8 L (6.3-8.2) g/dL Albumin 2.4 L (3.5-5.0) g/dL 11/05/20 Range/Units 06:37 Plt Count (150-450) k/uL Lymphocytes # (1.0-4.8) k/uL PT 14.7 H (9.9-11.9) sec INR 1.40 H (0.90-1.11) Sodium (137-145) mmol/L Potassium (3.5-5.1) mmol/L Carbon Dioxide (22-30) mmol/L Glucose (74-99) mg/dL Calcium (8.4-10.2) mg/dL Ferritin (22.0-322.0) ng/mL Total Protein (6.3-8.2) g/dL Albumin (3.5-5.0) g/dL Microbiology - Last 24 Hours (Table) 11/02/20 22:32 Blood Culture - Preliminary Blood No Growth after 48 hours 11/03/20 00:27 Urine Culture - Final Urine,Clean Catch Assessment and Plan Plan: #1. Acute on chronic hypoxic respiratory failure multifactorial, partly related to Covid 19 infection. UTI is doubtful. Superimposed pneumonia is doubtful. Pro-calcitonin level is nonelevated at this point in time. He is on empiric antibiotic coverage. His oxygenation is stable and currently is on 4 L of oxygen by nasal cannula. #2. Recent COVID 19 infection on 10/23/2020, CTA chest showed grossly clear lungs, and the possibility of recanalized left lower lobe pulmonary embolus or chronic emboli in the left lower lobe, and patient is on chronic anticoagulation in the form of warfarin for history of pulmonary embolisms, note that his PT/INR is subtherapeutic. #3. Recent hospitalization for acute COPD exacerbation, acute exacerbation of diastolic CHF #4. Coronary artery disease #5. COPD, moderately severe with baseline FEV1 of 55% of predicted, and patient whom ex-smoker, does have a [id number] smoking history, in remission for the last year #6. History of obstructive sleep apnea on CPAP #7. Hypertension #8. Hyperlipidemia #9. History of pulmonary embolism on Coumadin, INR was subtherapeutic on presentation #10. Previous history of urinary tract infections #11. Morbid obesity #12. Currently not ambulatory, going to rehab at the [facility] on [facility] #13. Altered mental status, brain CT showed no acute findings, possibly related to acute metabolic encephalopathy #14. Bipolar disorder #15. Chronic back pain Plan Continue Decadron Adjust the dose of Coumadin to achieve an INR between 2 and 3. Meanwhile, I'm going to cover this patient with Lovenox therapeutic doses based on his previous history of pulmonary embolism. This will use only as a bridging therapy until his INR becomes therapeutic. His most recent INR is at 1.4. Continue Spiriva. Continue rest of the home medication. Oxygen therapy at 4 L and this can be gradually weaned off. We'll continue to follow. He is quite debilitated and his baseline performance and functional status is poor. His oxygen at baseline is at 2 L. I reviewed the CAT scan of the chest again. His lungs are clear the patient seems to have recovered from his Covid 19 pneumonia. Reported to maintain him on a therapeutic PT/INR level. We'll continue to follow
--- NOTE | 2020-11-05 17:40 | P.PN ---
Subjective Progress Note Date: 11/05/20 Principal diagnosis: dyspnea Cough Covid 19 infection Urinary tract infection-culture negative 75-year-old male was transferred from alf facility due to the fact that the alf facility staff was concerned with the patient's acute change of mental status/generalized weakness/dyspnea/generalized malaise. Patient had extensive diagnostic workup in the emergency department revealing acute delirium possibly related to to underlying medical conditions and urinary tract infection.PATIENT HAS SIGNIFICANT MEDICAL HISTORY DEMENTIA,copd, chf WITH SYSTOLIC DYSFUNCTION, MORBID OBESITY, BIPOLAR DISORDER, OBSTRUCTIVE SLEEP APNEA ON bIpap,ASTHMA, CORONARY ARTERY DISEASE, dvt, HYPERLIPIDEMIA AND HYPERTENSION AND PULMONARY EMBOLISMS.PATIENT ABLE TO ANSWER QUESTIONS WITH FEW WORD SENTENCES APPROPRIATE TO PERSON PLACE AND TIME NOT CURRENTLY APPROPRIATE TO SITUATION. CONSULTATION WITH CARDIOLOGY AND PULMONOLOGY.patient intermittent complain of shortness of breath, and nonproductive cough. Objective - Vital Signs Vital signs: Vital Signs Temp 98.5 F 11/05/20 16:57 Pulse 82 11/05/20 16:57 Resp 17 11/05/20 16:57 BP 113/70 11/05/20 16:57 Pulse Ox 90 L 11/05/20 16:57 Intake & Output 11/04/20 11/05/20 11/05/20 18:59 06:59 18:59 Intake Total 53.977 Output Total 200 Balance -146.023 Weight 112.6 kg Intake: Intake, IV Titration 53.977 Amount Heparin Sod,Pork in 0.45% 53.977 NaCl 25,000 unit In 0.45 % NaCl 1 250ml.bag @ 8.88 UNITS/KG/HR 9.999 mls/hr IV .Q24H [facility] Rx#: [id number] Output: Urine 200 Other: Voiding Method Urinal Urinal Diaper Diaper Incontinent Incontinent # Voids 3 - Constitutional General appearance: Present: mild distress - EENT Eyes: Present: EOMI, PERRLA Ears: bilateral: normal - Neck Carotids: bilateral: upstroke normal Thyroid: bilateral: normal size - Respiratory Respiratory: bilateral: diminished (throughout lung cevallos) - Cardiovascular Rhythm: regular Heart sounds: normal: S1, S2 - Peripheral edema ankle Peripheral Edema: bilateral: Trace - Peripheral pulses dorsalis pedis Peripheral Pulses: bilateral: Normal radial pulse Peripheral Pulses: bilateral: Normal - Gastrointestinal General gastrointestinal: Present: decreased bowel sounds - Integumentary Integumentary: Present: decreased turgor, pale - Neurologic Neurologic Comment(s): patient alert to person and place Patient confused to situation Neurologic: Present: CNII-XII intact - Psychiatric Psychiatric Comment(s): patient alert to person and place Confuse the situation Flat affect - Allied health notes Allied health notes reviewed: nursing - Labs CBC & Chem 7: 11/05/20 06:37 11/05/20 06:37 Labs: Abnormal Lab Results - Last 24 Hours (Table) 11/04/20 11/05/20 11/05/20 Range/Units 07:50 06:37 06:37 Plt Count 101 L (150-450) k/uL Lymphocytes # 0.7 L (1.0-4.8) k/uL PT (9.9-11.9) sec INR (0.90-1.11) Sodium 135 L (137-145) mmol/L Potassium 3.2 L (3.5-5.1) mmol/L Carbon Dioxide 36 H (22-30) mmol/L Glucose 105 H (74-99) mg/dL Calcium 7.1 L (8.4-10.2) mg/dL Ferritin 4180.3 H (22.0-322.0) ng/mL Total Protein 4.8 L (6.3-8.2) g/dL Albumin 2.4 L (3.5-5.0) g/dL 11/05/20 Range/Units 06:37 Plt Count (150-450) k/uL Lymphocytes # (1.0-4.8) k/uL PT 14.7 H (9.9-11.9) sec INR 1.40 H (0.90-1.11) Sodium (137-145) mmol/L Potassium (3.5-5.1) mmol/L Carbon Dioxide (22-30) mmol/L Glucose (74-99) mg/dL Calcium (8.4-10.2) mg/dL Ferritin (22.0-322.0) ng/mL Total Protein (6.3-8.2) g/dL Albumin (3.5-5.0) g/dL Microbiology - Last 24 Hours (Table) 11/02/20 22:32 Blood Culture - Preliminary Blood No Growth after 48 hours - Imaging and Cardiology Chest x-ray: report reviewed Assessment and Plan Assessment: Acute deliriumpossibly due to medical condition Acute urinary tract infectionculture-negative pneumoniacontinue broad-spectrum antibiotics History of asthma History of coronary artery disease History of heart failure unspecified diastolic/systolic COPD without exacerbation Dementia History of DVTs Hyperlipidemia Hypertension History of pulmonary embolism Sleep apnea (1) Delirium due to general medical condition Current Visit: Yes Status: Acute Code(s): F05 - DELIRIUM DUE TO KNOWN PHYSIOLOGICAL CONDITION SNOMED Code(s): 7291771 (2) UTI (urinary tract infection) Narrative/Plan: Urinalysis reveals urinary tract [id number] Current Visit: Yes Status: Resolved Code(s): N39.0 - URINARY TRACT INFECTION, SITE NOT SPECIFIED SNOMED Code(s): 35667235 Plan: Acute deliriumpossibly due to medical condition coven 19 infectiondiagnosed 10/23/2020continue consultation with pulmonary critical care Acute urinary tract infectionculture-negative Pneumoniacontinue broad-spectrum antibiotics Continue consultation with pulmonary critical care for recommendations of COPD Continue consultation with cardiology for recommendations of mildly elevated troponins Continue home medications Continue medical management Time with Patient: Greater than 30
[2020-11-05] MEDS ORDERED: WARFARIN 2 MG TAB PO ONE (18:00)
[2020-11-05] MEDS: AZITHROMYCIN 500 MG in SODIUM CHLORIDE 0.9% 250 ML IVPB SCH (21:12)
[2020-11-05] MEDS: LOSARTAN 25 MG TAB PO SCH (21:12)
[2020-11-05] MEDS: ATORVASTATIN 40 MG TAB PO SCH (21:12)
[2020-11-05] MEDS: ENOXAPARIN 100 MG/ML SYRINGE SQ SCH (21:47)
[2020-11-06] MEDS: SODIUM CHLORIDE 0.9% 1,000 ML IV SCH ×2 (06:31→17:53)
[2020-11-06 07:07] LABS: ALT 46 U/L (4-49); AST 39 U/L (17-59); African American GFR (CKD) >90 (>60 ml/min/1.73 sqM); Albumin 2.5 g/dL (3.5-5.0); Alkaline Phosphatase 51 U/L (38-126); Anion Gap 0 mmol/L; Blood Urea Nitrogen 14 mg/dL (9-20); Calcium 7.4 mg/dL (8.4-10.2); Carbon Dioxide 34 mmol/L (22-30); Chloride 99 mmol/L (98-107); Globulin 2.4 g/dL; Glucose 136 mg/dL (74-99); Non-African American GFR(CKD) 87 (>60 ml/min/1.73 sqM); Sodium 133 mmol/L (137-145); Total Bilirubin 0.5 mg/dL (0.2-1.3); Total Protein 4.9 g/dL (6.3-8.2)
[2020-11-06 07:38] LABS: Basophils % (A) 0 %; Eosinophils % (A) 0 %; HGB 13.8 gm/dL (13.0-17.5); Lymphocytes # (A) 0.5 k/uL (1.0-4.8); Lymphocytes % (A) 17 %; MCH 30.8 pg (25.0-35.0); MCHC 32.8 g/dL (31.0-37.0); MCV 93.8 fL (80.0-100.0); Mean Platelet Volume 7.4; Monocytes # (A) 0.2 k/uL (0-1.0); Monocytes % (A) 6 %; Neutrophils # (A) 2.1 k/uL (1.3-7.7); Neutrophils % (A) 75 %; RBC 4.47 m/uL (4.30-5.90); RDW 13.8 % (11.5-15.5); WBC 2.9 k/uL (3.8-10.6)
[2020-11-06] MEDS: ENOXAPARIN 100 MG/ML SYRINGE SQ SCH (07:44)
[2020-11-06] MEDS: LORATADINE 10 MG TAB PO SCH (07:45)
[2020-11-06] MEDS: amLODIPine 5 MG TAB PO SCH (07:45)
[2020-11-06] MEDS: dexAMETHasone 2 MG TAB PO SCH (07:45)
[2020-11-06] MEDS: FLUTICASONE 50MCG/SPRAY NASAL 16GM EA NOSTRIL SCH (07:45)
[2020-11-06] MEDS: ZINC SULFATE 220 MG CAP PO SCH (07:45)
[2020-11-06] MEDS: PANTOPRAZOLE 40 MG TABLET PO SCH (07:45)
[2020-11-06] MEDS: FUROSEMIDE 40 MG TAB PO SCH ×2 (07:46→19:53)
[2020-11-06] MEDS: METOPROLOL TARTRATE 25 MG TAB PO SCH (07:46)
[2020-11-06] MEDS: ASCORBIC ACID 500 MG TAB PO SCH (07:46)
[2020-11-06] MEDS: TIOTROPIUM 18 MCG/PUFF INHALER INHALATION SCH (07:56)
[2020-11-06] MEDS: ALBUTEROL HFA INHALER INHALATION SCH ×4 (07:56→19:53)
[2020-11-06] MEDS: SYMBICORT 160-4.5 MCG INHALER INHALATION SCH ×2 (07:56→19:54)
[2020-11-06 08:58] LABS: Platelet Count 96 k/uL (150-450)
[2020-11-06 09:27] LABS: INR 1.38 (0.90-1.11); Prothrombin Time 14.6 sec (9.9-11.9)
--- NOTE | 2020-11-06 15:55 | CDI ---
Documentation Clarification Form Date: 11/06/2020 03:18:07 PM From: Bianca Franz RN, CCDS Admit Date: 11/04/2020 09:49:00 AM Patient Name: Mihir Gottlieb Visit Number: [id number] Discharge Date: ATTENTION: The Clinical Documentation Specialists (CDI) and [facility] Coding Staff appreciate your assistance in clarifying documentation. Please respond to the clarification below the line at the bottom and electronically sign. The CDI & [facility] Coding staff will review the response and follow-up if needed. Please note: Queries are made part of the Legal Health Record. If you have any questions, please contact the author of this message via ITS. Dr. Alvin Mott The following has been documented in consults progress notes on 11/04/20: 11/04 Pulmonary: Sepsis related to urinary tract infection 11/04 Cardiology: suspect altered mental status related to Sepsis possible form UTI versus pneumonia Please render your opinion on the sepsis diagnosis. History/Risk Factors: COVID-19, Pneumonia, Asthma CAD, COPD DVT, PE, Former smoker Clinical Indicators: 75-year-old male present to ED on 11/02 from [facility] with confusion was diagnosed with Covid 19 on 10/23. He complains of weakness fever, chills. 11/02 Vital signs at 22:04 119/99 100 26 100.497 % 4/L NC 11/03 Vital signs at 01:29 114/88 94 20 102.2 97 % 4/L NC Treatment: .9NC @ 75 mis/hr 128-11/06 Rocephin 2 gm IVPB 11/04 Rocephin 1 gm IVPB x1 11/03 Azithromycin 500 mg IVPB Q Day 11/05 Dexamethasone 6 MG PO Daily Definition of Present on Admission (POA): A diagnosis present at the time the order for admission to inpatient status was written. For each diagnosis, documentation must be clear to determine if the condition was present at the time of the patients inpatient admission or developed during the hospital stay. Please clarify if Sepsis was POA __x__Y = Yes, the condition was present at the time of the order for inpatient admission. ____N = No, the condition was not present at the time of the order for inpatient admission. ____W = Clinically undetermined if the condition was present at the time of the order for inpatient admission. (Last Revision: Oct 2018) MTDD
--- NOTE | 2020-11-06 17:09 | P.PN ---
Subjective Progress Note Date: 11/06/20 Principal diagnosis: Acute on chronic hypoxic respiratory failure secondary to CoVID 19 pneumonitis The patient is seen today 11/06/2020 in follow-up on the regular medical floor. He is currently sitting up in a chair at the bedside. Awake and alert in no acute distress. He is currently maintaining O2 saturations in the 90s on 4 L/m per nasal cannula. Alternating with BiPAP. He is afebrile. Hemodynamically stable. Blood culture reveals no growth. Urine culture reveals no growth. White count 2.9. Hemoglobin 13.8. Platelet count 96. Lymphocytes 0.5. INR 1.3. Sodium 133. Potassium 4.0. Creatinine 0.78. He is continued on ceftriaxone and azithromycin. Symbicort, Spiriva and Ventolin. Decannulated with warfarin. Remains on Decadron. Objective - Vital Signs Vital signs: Vital Signs Temp 97.8 F 11/06/20 16:36 Pulse 71 11/06/20 16:36 Resp 20 11/06/20 16:36 BP 112/76 11/06/20 16:36 Pulse Ox 96 11/06/20 16:36 Intake & Output 11/05/20 11/06/20 11/06/20 18:59 06:59 18:59 Weight 112.6 kg Other: Voiding Method Urinal Urinal Urinal Diaper Diaper Diaper Incontinent Incontinent Incontinent # Voids 3 2 # Bowel Movements 1 1 - Exam GENERAL EXAM: Alert, pleasant 75-year-old male patient, on 4 L of oxygen with pulse ox of 94%, up in a chair at the bedside, comfortable in no apparent distress. HEAD: Normocephalic/atraumatic. EYES: Normal reaction of pupils, equal size. Conjunctiva pink, sclera white. NOSE: Clear with pink turbinates. THROAT: No erythema or exudates. NECK: No masses, no JVD, no thyroid enlargement, no adenopathy. CHEST: No chest wall deformity. Symmetrical expansion. LUNGS: Equal air entry with coarse bibasilar crackles, but no wheeze, rhonchi or dullness. CVS: Regular rate and rhythm, normal S1 and S2, no gallops, no murmurs, no rubs ABDOMEN: Soft, nontender. No hepatosplenomegaly, normal bowel sounds, no guarding or rigidity. EXTREMITIES: No clubbing, no edema, no cyanosis, 2+ pulses and upper and lower extremities. MUSCULOSKELETAL: Muscle strength and tone normal. SPINE: No scoliosis or deformity SKIN: No rashes CENTRAL NERVOUS SYSTEM: No focal deficits, tone is normal in all 4 extremities. PSYCHIATRIC: Alert and oriented -3. Appropriate affect. - Labs CBC & Chem 7: 11/06/20 06:10 11/06/20 06:10 Labs: Abnormal Lab Results - Last 24 Hours (Table) 11/06/20 11/06/20 11/06/20 Range/Units 06:10 06:10 06:10 WBC 2.9 L (3.8-10.6) k/uL Plt Count 96 L (150-450) k/uL Lymphocytes # 0.5 L (1.0-4.8) k/uL PT 14.6 H (9.9-11.9) sec INR 1.38 H (0.90-1.11) Sodium 133 L (137-145) mmol/L Carbon Dioxide 34 H (22-30) mmol/L Glucose 136 H (74-99) mg/dL Calcium 7.4 L (8.4-10.2) mg/dL Total Protein 4.9 L (6.3-8.2) g/dL Albumin 2.5 L (3.5-5.0) g/dL Microbiology - Last 24 Hours (Table) 11/02/20 22:32 Blood Culture - Preliminary Blood No Growth after 72 hours Assessment and Plan Assessment: #1. Acute on chronic hypoxic respiratory failure multifactorial, partly related to Covid 19 infection. Urine culture negative Superimposed pneumonia is doubtful. Pro-calcitonin level is nonelevated at this point in time. He is on empiric antibiotic coverage. His oxygenation is stable and currently is on 4 L of oxygen by nasal cannula alternating with BiPAP. #2. Recent COVID 19 infection on 10/23/2020, CTA chest showed grossly clear lungs, and the possibility of recanalized left lower lobe pulmonary embolus or chronic emboli in the left lower lobe, and patient is on chronic anticoagulation in the form of warfarin for history of pulmonary embolisms, note that his PT/INR is subtherapeutic. #3. Recent hospitalization for acute COPD exacerbation, acute exacerbation of diastolic CHF #4. Coronary artery disease #5. COPD, moderately severe with baseline FEV1 of 55% of predicted, and patient whom ex-smoker, does have a [id number] smoking history, in remission for the last year #6. History of obstructive sleep apnea on CPAP #7. Hypertension #8. Hyperlipidemia #9. History of pulmonary embolism on Coumadin, INR was subtherapeutic on presentation #10. Previous history of urinary tract infections #11. Morbid obesity #12. Currently not ambulatory, going to rehab at the [facility] on the [place] #13. Altered mental status, brain CT showed no acute findings, possibly related to acute metabolic encephalopathy #14. Bipolar disorder #15. Chronic back pain Plan The patient was seen and evaluated by Dr. Mar He is currently stable from the pulmonary standpoint Continue the current treatment plan Titrate down the FiO2 as tolerated Increase his activity as tolerated We'll continue to follow I, the cosigning physician, performed a history & physical examination of the patient. Lungs sounds with bibasilar crackles Maintaining good O2 saturations in the 90s on 2 L/m per nasal cannula. I discussed the assessment and plan of care with my nurse practitioner, Nara Gregory. I attest to the above note as dictated by her.
[2020-11-06] MEDS: AZITHROMYCIN 500 MG in SODIUM CHLORIDE 0.9% 250 ML IVPB SCH (17:49)
[2020-11-06] MEDS ORDERED: WARFARIN 5 MG TAB PO ONE (18:00)
[2020-11-06] MEDS: ATORVASTATIN 40 MG TAB PO SCH (19:53)
[2020-11-06] MEDS: LOSARTAN 25 MG TAB PO SCH (19:53)
--- NOTE | 2020-11-06 20:39 | P.PN ---
Subjective Progress Note Date: 11/06/20 Principal diagnosis: dyspnea Cough Covid 19 infection Urinary tract infection-culture negative 75-year-old male was [facility] due to the fact that the [facility] facility staff was concerned with the patient's acute change of mental status/generalized weakness/dyspnea/generalized malaise. Patient had extensive diagnostic workup in the emergency department revealing acute delirium possibly related to to underlying medical conditions and urinary tract infection.PATIENT HAS SIGNIFICANT MEDICAL HISTORY DEMENTIA,copd, chf WITH SYSTOLIC DYSFUNCTION, MORBID OBESITY, BIPOLAR DISORDER, OBSTRUCTIVE SLEEP APNEA ON bIpap,ASTHMA, CORONARY ARTERY DISEASE, dvt, HYPERLIPIDEMIA AND HYPERTENSION AND PULMONARY EMBOLISMS.PATIENT ABLE TO ANSWER QUESTIONS WITH FEW WORD SENTENCES APPROPRIATE TO PERSON PLACE AND TIME NOT CURRENTLY APPROPRIATE TO SITUATION. CONSULTATION WITH CARDIOLOGY AND PULMONOLOGY.patient intermittent complain of shortness of breath, and nonproductive cough. Objective - Vital Signs Vital signs: Vital Signs Temp 97.8 F 11/06/20 16:36 Pulse 73 11/06/20 19:52 Resp 20 11/06/20 16:36 BP 126/82 11/06/20 19:52 Pulse Ox 96 11/06/20 16:36 Intake & Output 11/06/20 11/06/20 11/07/20 06:59 18:59 06:59 Intake Total 1000 Balance 1000 Intake: Intake, IV Titration 1000 Amount Azithromycin 500 mg In 250 Sodium Chloride 0.9% 250 ml @ 250 mls/hr IVPB DAILY@1800 [facility] Rx#: [id number] Sodium Chloride 0.9% 1, 700 000 ml @ 75 mls/hr IV . [id number] [facility] Rx#:[id number] cefTRIAXone 2 gm In 50 Sodium Chloride 0.9% 50 ml @ 100 mls/hr IVPB Q24HR [facility] Rx#:[id number] Other: Voiding Method Urinal Urinal Diaper Diaper Incontinent Incontinent # Voids 2 4 # Bowel Movements 1 - Constitutional General appearance: Present: disheveled, morbidly obese - EENT Eyes: Present: EOMI, PERRLA ENT: Present: hard of hearing Ears: bilateral: normal - Neck Carotids: bilateral: upstroke normal Thyroid: bilateral: normal size - Respiratory Respiratory: bilateral: diminished (Throughout lung cevallos) - Cardiovascular Rhythm: regular Heart sounds: normal: S1, S2 - Peripheral edema ankle Peripheral Edema: bilateral: Trace - Peripheral pulses radial pulse Peripheral Pulses: bilateral: Normal - Gastrointestinal General gastrointestinal: Present: normal bowel sounds - Integumentary Integumentary: Present: decreased turgor, pale - Neurologic Neurologic Comment(s): Patient alert to person and place Patient disoriented to situation - Musculoskeletal Musculoskeletal: Present: generalized weakness - Psychiatric Psychiatric Comment(s): Patient alert to person and place Patient disoriented to situation Flat affect - Allied health notes Allied health notes reviewed: nursing - Labs CBC & Chem 7: 11/06/20 06:10 11/06/20 06:10 Labs: Abnormal Lab Results - Last 24 Hours (Table) 11/06/20 11/06/20 11/06/20 Range/Units 06:10 06:10 06:10 WBC 2.9 L (3.8-10.6) k/uL Plt Count 96 L (150-450) k/uL Lymphocytes # 0.5 L (1.0-4.8) k/uL PT 14.6 H (9.9-11.9) sec INR 1.38 H (0.90-1.11) Sodium 133 L (137-145) mmol/L Carbon Dioxide 34 H (22-30) mmol/L Glucose 136 H (74-99) mg/dL Calcium 7.4 L (8.4-10.2) mg/dL Total Protein 4.9 L (6.3-8.2) g/dL Albumin 2.5 L (3.5-5.0) g/dL Microbiology - Last 24 Hours (Table) 11/02/20 22:32 Blood Culture - Preliminary Blood No Growth after 72 hours - Imaging and Cardiology Chest x-ray: report reviewed Assessment and Plan Assessment: Acute deliriumpossibly due to medical condition Acute urinary tract infectionculture-negative pneumoniacontinue broad-spectrum antibiotics History of asthma History of coronary artery disease History of heart failure unspecified diastolic/systolic COPD without exacerbation Dementia History of DVTs Hyperlipidemia Hypertension History of pulmonary embolism Sleep apnea (1) Delirium due to general medical condition Narrative/Plan: Acute delirium possibly due to general medical condition Current Visit: Yes Status: Acute Code(s): F05 - DELIRIUM DUE TO KNOWN PHYSIOLOGICAL CONDITION SNOMED Code(s): 0278620 (2) UTI (urinary tract infection) Narrative/Plan: Urinalysis reveals urinary tract [id number] Current Visit: Yes Status: Resolved Code(s): N39.0 - URINARY TRACT INFECTION, SITE NOT SPECIFIED SNOMED Code(s): 93353522 Plan: Acute deliriumpossibly due to medical condition coven 19 infectiondiagnosed 10/23/2020continue consultation with pulmonary critical care Acute urinary tract infectionculture-negative Pneumoniacontinue broad-spectrum antibiotics Continue consultation with pulmonary critical care for recommendations of COPD Continue consultation with cardiology for recommendations of mildly elevated troponins Continue home medications Continue medical management Time with Patient: Greater than 30
[2020-11-07 06:43] LABS: Basophils % (A) 0 %; Eosinophils % (A) 0 %; HCT 41.2 % (39.0-53.0); HGB 13.9 gm/dL (13.0-17.5); Lymphocytes # (A) 0.6 k/uL (1.0-4.8); Lymphocytes % (A) 13 %; MCHC 33.7 g/dL (31.0-37.0); MCV 92.1 fL (80.0-100.0); Mean Platelet Volume 7.3; Monocytes # (A) 0.2 k/uL (0-1.0); Monocytes % (A) 5 %; Neutrophils # (A) 3.6 k/uL (1.3-7.7); Neutrophils % (A) 81 %; Platelet Count 104 k/uL (150-450); RBC 4.48 m/uL (4.30-5.90); RDW 13.2 % (11.5-15.5); WBC 4.5 k/uL (3.8-10.6)
[2020-11-07 06:56] LABS: ALT 59 U/L (4-49); AST 43 U/L (17-59); African American GFR (CKD) >90 (>60 ml/min/1.73 sqM); Albumin 2.6 g/dL (3.5-5.0); Alkaline Phosphatase 47 U/L (38-126); Anion Gap 2 mmol/L; Blood Urea Nitrogen 15 mg/dL (9-20); Calcium 7.6 mg/dL (8.4-10.2); Carbon Dioxide 34 mmol/L (22-30); Chloride 98 mmol/L (98-107); Globulin 2.5 g/dL; Glucose 127 mg/dL (74-99); Magnesium 1.8 mg/dL (1.6-2.3); Non-African American GFR(CKD) >90 (>60 ml/min/1.73 sqM); Potassium 3.9 mmol/L (3.5-5.1); Sodium 134 mmol/L (137-145); Total Bilirubin 0.6 mg/dL (0.2-1.3); Total Protein 5.1 g/dL (6.3-8.2)
[2020-11-07] MEDS: METOPROLOL TARTRATE 25 MG TAB PO SCH (08:56)
[2020-11-07] MEDS: dexAMETHasone 2 MG TAB PO SCH (08:57)
[2020-11-07] MEDS: FUROSEMIDE 40 MG TAB PO SCH ×2 (08:58→20:06)
[2020-11-07] MEDS: PANTOPRAZOLE 40 MG TABLET PO SCH (08:58)
[2020-11-07] MEDS: ASCORBIC ACID 500 MG TAB PO SCH (08:58)
[2020-11-07] MEDS: amLODIPine 5 MG TAB PO SCH (08:58)
[2020-11-07] MEDS: ZINC SULFATE 220 MG CAP PO SCH (08:58)
[2020-11-07] MEDS: LORATADINE 10 MG TAB PO SCH (08:58)
[2020-11-07] MEDS: SODIUM CHLORIDE 0.9% 1,000 ML IV SCH ×3 (08:59→17:56)
[2020-11-07] MEDS: FLUTICASONE 50MCG/SPRAY NASAL 16GM EA NOSTRIL SCH (09:05)
[2020-11-07] MEDS: TIOTROPIUM 18 MCG/PUFF INHALER INHALATION SCH (09:25)
[2020-11-07] MEDS: ALBUTEROL HFA INHALER INHALATION SCH ×4 (09:25→20:31)
[2020-11-07] MEDS: SYMBICORT 160-4.5 MCG INHALER INHALATION SCH ×2 (09:25→20:31)
[2020-11-07 13:04] LABS: INR 1.63 (0.90-1.11)
--- NOTE | 2020-11-07 13:47 | P.PN ---
Subjective Progress Note Date: 11/07/202007, the patient is being seen for a follow-up. He is laying comfortably.. Resume all of breathing and he has also first of breathing related to his COPD. He is on 5 L of oxygen by nasal cannula. No chest pain. He remains on a combination of Rocephin and Zithromax. He is also on a combination of Symbicort and Spiriva and uses Ventolin necessary basis. He is also on Decadron 6 mg daily basis. This is long-term articulation with warfarin. His INR is at 1.6 which is gradually improving. Objective - Vital Signs Vital signs: Vital Signs Temp 97.9 F 11/07/20 11:00 Pulse 75 11/07/20 11:00 Resp 30 H 11/07/20 11:00 BP 117/74 11/07/20 11:00 Pulse Ox 92 L 11/07/20 11:00 Intake & Output 11/06/20 11/07/20 11/07/20 18:59 06:59 18:59 Intake Total 1000 900 Balance 1000 900 Intake: Intake, IV Titration 1000 900 Amount Azithromycin 500 mg In 250 Sodium Chloride 0.9% 250 ml @ 250 mls/hr IVPB DAILY@1800 [facility] Rx#: [id number] Sodium Chloride 0.9% 1, 700 900 000 ml @ 75 mls/hr IV . [id number] [facility] Rx#:[id number] cefTRIAXone 2 gm In 50 Sodium Chloride 0.9% 50 ml @ 100 mls/hr IVPB Q24HR [facility] Rx#:[id number] Other: Voiding Method Urinal Urinal Urinal Diaper Diaper Diaper Incontinent Incontinent Incontinent # Voids 4 - Exam GENERAL EXAM: 75-year-old white male, on 5 L of oxygen with pulse ox of 94%, resting in the bed, the patient is performing some pursed lip breathing. HEAD: Normocephalic/atraumatic. EYES: Normal reaction of pupils, equal size. Conjunctiva pink, sclera white. NOSE: Clear with pink turbinates. THROAT: No erythema or exudates. NECK: No masses, no JVD, no thyroid enlargement, no adenopathy. CHEST: No chest wall deformity. Symmetrical expansion. LUNGS: Equal air entry with coarse bibasilar crackles, but no wheeze, rhonchi or dullness. CVS: Regular rate and rhythm, normal S1 and S2, no gallops, no murmurs, no rubs ABDOMEN: Soft, nontender. No hepatosplenomegaly, normal bowel sounds, no guarding or rigidity. EXTREMITIES: No clubbing, no edema, no cyanosis, 2+ pulses and upper and lower extremities. MUSCULOSKELETAL: Muscle strength and tone normal. SPINE: No scoliosis or deformity SKIN: No rashes CENTRAL NERVOUS SYSTEM: Alert and oriented -3. No focal deficits, tone is normal in all 4 extremities. PSYCHIATRIC: Alert and oriented -3. Appropriate affect. I - Labs CBC & Chem 7: 11/07/20 06:18 11/07/20 06:18 Labs: Abnormal Lab Results - Last 24 Hours (Table) 11/07/20 11/07/20 11/07/20 Range/Units 06:18 06:18 06:18 Plt Count 104 L (150-450) k/uL Lymphocytes # 0.6 L (1.0-4.8) k/uL PT 17.0 H (9.9-11.9) sec INR 1.63 H (0.90-1.11) Sodium 134 L (137-145) mmol/L Carbon Dioxide 34 H (22-30) mmol/L Glucose 127 H (74-99) mg/dL Calcium 7.6 L (8.4-10.2) mg/dL ALT 59 H (4-49) U/L Total Protein 5.1 L (6.3-8.2) g/dL Albumin 2.6 L (3.5-5.0) g/dL Microbiology - Last 24 Hours (Table) 11/02/20 22:32 Blood Culture - Preliminary Blood No Growth after 96 hours Assessment and Plan Plan: #1. Acute on chronic hypoxic respiratory failure multifactorial, partly related to Covid 19 infection. UTI is doubtful. Superimposed pneumonia is doubtful. Pro-calcitonin level is nonelevated at this point in time. He is on empiric antibiotic coverage. His oxygenation is stable and currently is on 5 L of oxygen by nasal cannula. #2. Recent COVID 19 infection on 10/23/2020, CTA chest showed grossly clear lungs, and the possibility of recanalized left lower lobe pulmonary embolus or chronic emboli in the left lower lobe, and patient is on chronic anticoagulation in the form of warfarin for history of pulmonary embolisms, note that his PT/INR is subtherapeutic. #3. Recent hospitalization for acute COPD exacerbation, acute exacerbation of diastolic CHF #4. Coronary artery disease #5. COPD, moderately severe with baseline FEV1 of 55% of predicted, and patient whom ex-smoker, does have a [id number] smoking history, in remission for the last year #6. History of obstructive sleep apnea on CPAP #7. Hypertension #8. Hyperlipidemia #9. History of pulmonary embolism on Coumadin, INR was subtherapeutic on presentation #10. Previous history of urinary tract infections #11. Morbid obesity #12. Currently not ambulatory, going to rehab at the [facility] on the [place] #13. Altered mental status, brain CT showed no acute findings, possibly related to acute metabolic encephalopathy #14. Bipolar disorder #15. Chronic back pain Plan Continue Decadron Adjust the dose of Coumadin to achieve an INR between 2 and 3. He worked, the patient's PT/INR is subtherapeutic Continue Spiriva. Continue rest of the home medication. Oxygen therapy at 5 L per minute. Noted the patient's based on oxygen He is quite debilitated and his baseline performance and functional status is poor. I reviewed the CAT scan of the chest again. His lungs are clear the patient seems to have recovered from his Covid 19 pneumonia.
--- NOTE | 2020-11-07 14:16 | P.PN ---
Subjective Progress Note Date: 11/07/20 dyspnea Cough Covid 19 infection Urinary tract infection-culture negative 75-year-old male was transferred from alf facility due to the fact that the alf facility staff was concerned with the patient's acute change of mental status/generalized weakness/dyspnea/generalized malaise. Patient had extensive diagnostic workup in the emergency department revealing acute delirium possibly related to to underlying medical conditions and urinary tract infection.PATIENT HAS SIGNIFICANT MEDICAL HISTORY DEMENTIA,copd, chf WITH SYSTOLIC DYSFUNCTION, MORBID OBESITY, BIPOLAR DISORDER, OBSTRUCTIVE SLEEP APNEA ON bIpap,ASTHMA, CORONARY ARTERY DISEASE, dvt, HYPERLIPIDEMIA AND HYPERTENSION AND PULMONARY EMBOLISMS.PATIENT ABLE TO ANSWER QUESTIONS WITH FEW WORD SENTENCES APPROPRIATE TO PERSON PLACE AND TIME NOT CURRENTLY APPROPRIATE TO SITUATION. CONSULTATION WITH CARDIOLOGY AND PULMONOLOGY.patient intermittent complain of shortness of breath, and nonproductive cough. 11/07/2020 Patient is seen and evaluated in follow-up and continues to be on oxygen via nasal cannula at 5 liters with the use of the biPap at night. Patient continues to be confused although appears more awake and alert today. Patient does reside in a nursing facility and he is able to state that he is here at the hospital. Patient is maintained on IV antibiotics and will continue at this time. Will repeat a.m. labs. PT/OT to evaluate the patient. Pulmonary is following. Patient was recently diagnosed with Covid 19 at the end of September. Review of systems: Constitutional: No reports of fatigue, fever, or chills Cardiovascular: No reports of chest pain or palpitations Respiratory: reports of shortness of breath or cough GI: No reports of nausea, vomiting, or diarrhea : No reports of dysuria or retention Neurovascular: Reports weakness All medications have been reviewed Objective - Vital Signs Vital signs: Vital Signs Temp 97.9 F 11/07/20 11:00 Pulse 75 11/07/20 11:00 Resp 30 H 11/07/20 11:00 BP 117/74 11/07/20 11:00 Pulse Ox 92 L 11/07/20 11:00 Intake & Output 11/06/20 11/07/20 11/07/20 18:59 06:59 18:59 Intake Total 1000 900 Balance 1000 900 Intake: Intake, IV Titration 1000 900 Amount Azithromycin 500 mg In 250 Sodium Chloride 0.9% 250 ml @ 250 mls/hr IVPB DAILY@1800 [facility] Rx#: [id number] Sodium Chloride 0.9% 1, 700 900 000 ml @ 75 mls/hr IV . [id number] [facility] Rx#:[id number] cefTRIAXone 2 gm In 50 Sodium Chloride 0.9% 50 ml @ 100 mls/hr IVPB Q24HR [facility] Rx#:[id number] Other: Voiding Method Urinal Urinal Urinal Diaper Diaper Diaper Incontinent Incontinent Incontinent # Voids 4 - Exam Gen: This is a 75-year-old male sitting up in bed awake, alert and oriented 1- 2, well-developed, well-nourished, obese HEENT: Head is atraumatic, normocephalic. Pupils equal, round. Sclerae is anicteric. Nasal cannula noted NECK: Supple. No JVD. No lymphadenopathy. No thyromegaly. LUNGS: Diminished breath sounds bilaterally with some scattered rhonchi noted No intercostal retractions. HEART: S1, S2 are muffled ABDOMEN: Soft. Obese. Bowel sounds are present. No masses. No tenderness. EXTREMITIES: No pedal edema. No calf tenderness. NEUROLOGICAL: Patient is awake, alert and oriented x1-2. Diffusely weak - Labs CBC & Chem 7: 11/07/20 06:18 11/07/20 06:18 Labs: Abnormal Lab Results - Last 24 Hours (Table) 11/07/20 11/07/20 Range/Units 06:18 06:18 Plt Count 104 L (150-450) k/uL Lymphocytes # 0.6 L (1.0-4.8) k/uL Sodium 134 L (137-145) mmol/L Carbon Dioxide 34 H (22-30) mmol/L Glucose 127 H (74-99) mg/dL Calcium 7.6 L (8.4-10.2) mg/dL ALT 59 H (4-49) U/L Total Protein 5.1 L (6.3-8.2) g/dL Albumin 2.6 L (3.5-5.0) g/dL Microbiology - Last 24 Hours (Table) 11/02/20 22:32 Blood Culture - Preliminary Blood No Growth after 96 hours Assessment and Plan Assessment: Acute deliriumpossibly due to medical condition Acute urinary tract infectionculture-negative Recent Covid 19 infection on 10/23/2020 pneumoniacontinue broad-spectrum antibiotics History of asthma History of coronary artery disease History of heart failure unspecified diastolic/systolic COPD without exacerbation Dementia History of DVTs Hyperlipidemia Hypertension History of pulmonary embolism Sleep apnea Plan: Acute deliriumpossibly due to medical condition covid 19 infectiondiagnosed 10/23/2020continue consultation with pulmonary critical care Acute urinary tract infectionculture-negative Pneumoniacontinue broad-spectrum antibiotics Continue consultation with pulmonary critical care for recommendations of COPD Continue consultation with cardiology for recommendations of mildly elevated troponins Continue home medications Continue medical management and continue with current medications and symptomatic treatment. PT/OT to evaluate the patient. Further recommendations to follow depending on the clinical course of the patient.
[2020-11-07] MEDS: AZITHROMYCIN 500 MG in SODIUM CHLORIDE 0.9% 250 ML IVPB SCH (16:59)
[2020-11-07] MEDS ORDERED: WARFARIN 5 MG TAB PO ONE (18:00)
[2020-11-07] MEDS: ATORVASTATIN 40 MG TAB PO SCH (20:05)
[2020-11-07] MEDS: LOSARTAN 25 MG TAB PO SCH (20:06)
[2020-11-08 06:59] LABS: Basophils % (A) 0 %; Eosinophils % (A) 0 %; HCT 39.5 % (39.0-53.0); HGB 13.5 gm/dL (13.0-17.5); Lymphocytes # (A) 0.6 k/uL (1.0-4.8); Lymphocytes % (A) 12 %; MCH 31.2 pg (25.0-35.0); MCHC 34.2 g/dL (31.0-37.0); Mean Platelet Volume 7.5; Monocytes # (A) 0.3 k/uL (0-1.0); Monocytes % (A) 6 %; Neutrophils # (A) 3.8 k/uL (1.3-7.7); Neutrophils % (A) 81 %; Platelet Count 135 k/uL (150-450); RBC 4.34 m/uL (4.30-5.90); RDW 13.2 % (11.5-15.5); WBC 4.7 k/uL (3.8-10.6)
[2020-11-08 07:13] LABS: INR 2.8 (<1.2); Prothrombin Time 27.7 sec (9.0-12.0)
[2020-11-08] MEDS: dexAMETHasone 2 MG TAB PO SCH (08:45)
[2020-11-08] MEDS: ZINC SULFATE 220 MG CAP PO SCH (08:46)
[2020-11-08] MEDS: METOPROLOL TARTRATE 25 MG TAB PO SCH (08:47)
[2020-11-08] MEDS: amLODIPine 5 MG TAB PO SCH (08:48)
[2020-11-08] MEDS: ASCORBIC ACID 500 MG TAB PO SCH (08:48)
[2020-11-08] MEDS: PANTOPRAZOLE 40 MG TABLET PO SCH (08:48)
[2020-11-08] MEDS: FUROSEMIDE 40 MG TAB PO SCH ×2 (08:48→20:59)
[2020-11-08] MEDS: LORATADINE 10 MG TAB PO SCH (08:48)
[2020-11-08] MEDS: SODIUM CHLORIDE 0.9% 1,000 ML IV SCH (08:49)
[2020-11-08] MEDS: FLUTICASONE 50MCG/SPRAY NASAL 16GM EA NOSTRIL SCH (08:51)
[2020-11-08] MEDS: ALBUTEROL HFA INHALER INHALATION SCH ×4 (08:55→20:19)
[2020-11-08] MEDS: TIOTROPIUM 18 MCG/PUFF INHALER INHALATION SCH (08:55)
[2020-11-08] MEDS: SYMBICORT 160-4.5 MCG INHALER INHALATION SCH ×2 (08:55→20:20)
[2020-11-08 10:18] LABS: African American GFR (CKD) 99.9 (60.0-200.0); Anion Gap 6.8 mmol/L (4.00-12.00); BUN/Creat Ratio 21.25 Ratio (12.00-20.00); Calcium 7.7 mg/dL (8.7-10.3); Carbon Dioxide 32.2 mmol/L (21.6-31.8); Non-African American GFR(CKD) 86.2 (60.0-200.0); Potassium 3.5 mmol/L (3.5-5.5)
--- NOTE | 2020-11-08 13:17 | P.PN ---
Subjective Progress Note Date: 11/08/20 On 11/08/2020, the patient is being seen for a follow-up. His activities of COPD with pneumonia. The patient is doing essentially the same as yesterday. The patient is on examination Spiriva and Symbicort regarding his COPD. He is on empiric antibiotic coverage with a combination of Rocephin and Zithromax. The patient is also on Decadron regarding his overnight. Pneumonia. The patient's INR is up to 2.8 and is within the therapeutic range. He continues to do first. Breathing. He is currently on 5 L of oxygen by nasal cannula. No reported aspiration. He is lethargic. He is weak. His significantly debilitated at this point in time. He has multiple other comorbidities as stated earlier. The rest of the labs from today show a white cell count of 4.7 with a hemoglobin of 13.5. Platelet count is at 137. INR is at 2.8 as mentioned. The patient's pro-calcitonin level was normal at 0.03. Objective - Vital Signs Vital signs: Vital Signs Temp 97.9 F 11/08/20 10:56 Pulse 67 11/08/20 10:56 Resp 24 11/08/20 10:56 BP 120/80 11/08/20 10:56 Pulse Ox 94 L 11/08/20 10:56 Intake & Output 11/07/20 11/08/20 11/08/20 18:59 06:59 18:59 Intake Total 1075 Balance 1075 Intake: Intake, IV Titration 1075 Amount Azithromycin 500 mg In 250 Sodium Chloride 0.9% 250 ml @ 250 mls/hr IVPB DAILY@1800 [facility] Rx#: [id number] Sodium Chloride 0.9% 1, 775 000 ml @ 75 mls/hr IV . [id number] [facility] Rx#:[id number] cefTRIAXone 2 gm In 50 Sodium Chloride 0.9% 50 ml @ 100 mls/hr IVPB Q24HR [facility] Rx#:[id number] Other: Voiding Method Urinal Diaper Diaper Diaper Incontinent Incontinent Incontinent # Voids 5 # Bowel Movements 5 - Exam GENERAL EXAM: 75-year-old white male, on 5 L of oxygen with pulse ox of 94%, resting in the bed, the patient is performing some pursed lip breathing. HEAD: Normocephalic/atraumatic. EYES: Normal reaction of pupils, equal size. Conjunctiva pink, sclera white. NOSE: Clear with pink turbinates. THROAT: No erythema or exudates. NECK: No masses, no JVD, no thyroid enlargement, no adenopathy. CHEST: No chest wall deformity. Symmetrical expansion. LUNGS: Equal air entry with coarse bibasilar crackles, but no wheeze, rhonchi or dullness. CVS: Regular rate and rhythm, normal S1 and S2, no gallops, no murmurs, no rubs ABDOMEN: Soft, nontender. No hepatosplenomegaly, normal bowel sounds, no guarding or rigidity. EXTREMITIES: No clubbing, no edema, no cyanosis, 2+ pulses and upper and lower extremities. MUSCULOSKELETAL: Muscle strength and tone normal. SPINE: No scoliosis or deformity SKIN: No rashes CENTRAL NERVOUS SYSTEM: Alert and oriented -3. No focal deficits, tone is normal in all 4 extremities. PSYCHIATRIC: Alert and oriented -3. Appropriate affect. I - Labs CBC & Chem 7: 11/08/20 06:16 11/08/20 06:16 Labs: Abnormal Lab Results - Last 24 Hours (Table) 11/08/20 11/08/20 11/08/20 Range/Units 06:16 06:16 06:16 Plt Count 135 L (150-450) k/uL Lymphocytes # 0.6 L (1.0-4.8) k/uL PT 27.7 H (9.0-12.0) sec INR 2.8 H (<1.2) Carbon Dioxide 32.2 H (21.6-31.8) mmol/L BUN/Creatinine Ratio 21.25 H (12.00-20.00) Ratio Glucose 148 H (70-110) mg/dL Calcium 7.7 L (8.7-10.3) mg/dL Microbiology - Last 24 Hours (Table) 11/02/20 22:32 Blood Culture - Preliminary Blood No Growth after 120 hours Assessment and Plan Plan: #1. Acute on chronic hypoxic respiratory failure multifactorial, partly related to Covid 19 infection. UTI is doubtful. Superimposed pneumonia is doubtful. Pro-calcitonin level is nonelevated at this point in time. He is on empiric antibiotic coverage. His oxygenation is stable and currently is on 5 L of oxygen by nasal cannula. No significant changes condition. Oxygenation remained stable. Repeat pro-calcitonin is low. #2. Recent COVID 19 infection on 10/23/2020, CTA chest showed grossly clear lungs, and the possibility of recanalized left lower lobe pulmonary embolus or chronic emboli in the left lower lobe, and patient is on chronic anticoagulation in the form of warfarin for history of pulmonary embolisms, note that his PT/INR is therapeutic with an INR of 2.8. #3. Recent hospitalization for acute COPD exacerbation, acute exacerbation of diastolic CHF #4. Coronary artery disease #5. COPD, moderately severe with baseline FEV1 of 55% of predicted, and patient whom ex-smoker, does have a 48-[id number]-gdth smoking history, in remission for the last year #6. History of obstructive sleep apnea on CPAP #7. Hypertension #8. Hyperlipidemia #9. History of pulmonary embolism on Coumadin, INR was subtherapeutic on presentation #10. Previous history of urinary tract infections #11. Morbid obesity #12. Currently not ambulatory, going to rehab at the [facility] on the [place] #13. Altered mental status, brain CT showed no acute findings, possibly related to acute metabolic encephalopathy #14. Bipolar disorder #15. Chronic back pain Plan Continue Decadron Adjust the dose of Coumadin to achieve an INR between 2 and 3. The current INR is 2.8. Continue Spiriva. Continue rest of the home medication. Oxygen therapy at 5 L per minute. Noted the patient's based on oxygen He is quite debilitated and his baseline performance and functional status is poor. I reviewed the CAT scan of the chest again. His lungs windows on the CAT scan of the chest are clear the patient seems to have recovered from his Covid 19 pneumonia.
--- NOTE | 2020-11-08 13:47 | P.PN ---
Subjective Progress Note Date: 11/08/20 dyspnea Cough Covid 19 infection Urinary tract infection-culture negative 75-year-old male was transferred from custodial facility due to the fact that the custodial facility staff was concerned with the patient's acute change of mental status/generalized weakness/dyspnea/generalized malaise. Patient had extensive diagnostic workup in the emergency department revealing acute delirium possibly related to to underlying medical conditions and urinary tract infection.PATIENT HAS SIGNIFICANT MEDICAL HISTORY DEMENTIA,copd, chf WITH SYSTOLIC DYSFUNCTION, MORBID OBESITY, BIPOLAR DISORDER, OBSTRUCTIVE SLEEP APNEA ON bIpap,ASTHMA, CORONARY ARTERY DISEASE, dvt, HYPERLIPIDEMIA AND HYPERTENSION AND PULMONARY EMBOLISMS.PATIENT ABLE TO ANSWER QUESTIONS WITH FEW WORD SENTENCES APPROPRIATE TO PERSON PLACE AND TIME NOT CURRENTLY APPROPRIATE TO SITUATION. CONSULTATION WITH CARDIOLOGY AND PULMONOLOGY.patient intermittent complain of shortness of breath, and nonproductive cough. 11/07/2020 Patient is seen and evaluated in follow-up and continues to be on oxygen via nasal cannula at 5 liters with the use of the biPap at night. Patient continues to be confused although appears more awake and alert today. Patient does reside in a nursing facility and he is able to state that he is here at the hospital. Patient is maintained on IV antibiotics and will continue at this time. Will repeat a.m. labs. PT/OT to evaluate the patient. Pulmonary is following. Patient was recently diagnosed with Covid 19 at the end of September. 11/08/2020 Patient is seen in follow-up currently sitting up in the chair and appears more awake and at baseline today. Patient is maintained on 5 L via nasal cannula which is his baseline as well. Patient was in a [place] [facility] prior to arrival from recent hospitalization and continues to be quite debilitated and minimal of 2 person assist. PT/OT to evaluate the patient and will discuss with case management and social work about discharge planning and returning to [facility] once stabilized and discharged. Pulmonary is following. Current INR is 2.8 and will continue with current Coumadin dose. Sodium is 136 with a potassium of 3.5 and current creatinine is 0.8. Will continue with electrolyte replacement protocol as needed. Review of systems: Constitutional: No reports of fatigue, fever, or chills Cardiovascular: No reports of chest pain or palpitations Respiratory: reports of shortness of breath or cough GI: No reports of nausea, vomiting, or diarrhea : No reports of dysuria or retention Neurovascular: Reports weakness All medications have been reviewed Objective - Vital Signs Vital signs: Vital Signs Temp 97.9 F 11/08/20 10:56 Pulse 67 11/08/20 10:56 Resp 24 11/08/20 10:56 BP 120/80 11/08/20 10:56 Pulse Ox 94 L 11/08/20 10:56 Intake & Output 11/07/20 11/08/20 11/08/20 18:59 06:59 18:59 Intake Total 1075 Balance 1075 Intake: Intake, IV Titration 1075 Amount Azithromycin 500 mg In 250 Sodium Chloride 0.9% 250 ml @ 250 mls/hr IVPB DAILY@1800 [facility] Rx#: [id number] Sodium Chloride 0.9% 1, 775 000 ml @ 75 mls/hr IV . [id number] [facility] Rx#:[id number] cefTRIAXone 2 gm In 50 Sodium Chloride 0.9% 50 ml @ 100 mls/hr IVPB Q24HR [facility] Rx#:[id number] Other: Voiding Method Urinal Diaper Diaper Diaper Incontinent Incontinent Incontinent # Voids 5 # Bowel Movements 5 - Exam Gen: This is a 75-year-old male sitting up in the chair awake, alert and oriented 2, well-developed, well-nourished, obese HEENT: Head is atraumatic, normocephalic. Pupils equal, round. Sclerae is anicteric. Nasal cannula noted NECK: Supple. No JVD. No lymphadenopathy. No thyromegaly. LUNGS: Diminished breath sounds bilaterally with some scattered rhonchi noted No intercostal retractions. HEART: S1, S2 are muffled ABDOMEN: Soft. Obese. Bowel sounds are present. No masses. No tenderness. EXTREMITIES: No pedal edema. No calf tenderness. NEUROLOGICAL: Patient is awake, alert and oriented x1-2. Diffusely weak - Labs CBC & Chem 7: 11/08/20 06:16 11/08/20 06:16 Labs: Abnormal Lab Results - Last 24 Hours (Table) 11/08/20 11/08/20 11/08/20 Range/Units 06:16 06:16 06:16 Plt Count 135 L (150-450) k/uL Lymphocytes # 0.6 L (1.0-4.8) k/uL PT 27.7 H (9.0-12.0) sec INR 2.8 H (<1.2) Carbon Dioxide 32.2 H (21.6-31.8) mmol/L BUN/Creatinine Ratio 21.25 H (12.00-20.00) Ratio Glucose 148 H (70-110) mg/dL Calcium 7.7 L (8.7-10.3) mg/dL Microbiology - Last 24 Hours (Table) 11/02/20 22:32 Blood Culture - Preliminary Blood No Growth after 120 hours Assessment and Plan Assessment: Acute deliriumpossibly due to medical condition Acute urinary tract infectionculture-negative Recent Covid 19 infection on 10/23/2020 pneumoniacontinue broad-spectrum antibiotics History of asthma History of coronary artery disease History of heart failure unspecified diastolic/systolic COPD without exacerbation Dementia History of DVTs Hyperlipidemia Hypertension History of pulmonary embolism Sleep apnea Full code Plan: Acute deliriumpossibly due to medical condition covid 19 infectiondiagnosed 10/23/2020continue consultation with pulmonary critical care Acute urinary tract infectionculture-negative Pneumoniacontinue broad-spectrum antibiotics Continue consultation with pulmonary critical care for recommendations of COPD Continue consultation with cardiology for recommendations of mildly elevated troponins Continue home medications Continue medical management and continue with current medications and symptomatic treatment. PT/OT to evaluate the patient. Case management and social work following and working on discharge planning needs and return to [facility] or another facility for long-term care being discussed. Will repeat a.m. chest x-ray. Further recommendations to follow depending on the clinical course of the patient.
[2020-11-08] MEDS ORDERED: WARFARIN 2.5 MG TAB PO ONE (18:00)
[2020-11-08] MEDS: ATORVASTATIN 40 MG TAB PO SCH (20:59)
[2020-11-08] MEDS: LOSARTAN 25 MG TAB PO SCH (20:59)
[2020-11-09] MEDS: SODIUM CHLORIDE 0.9% 1,000 ML IV SCH (07:22)
[2020-11-09] MEDS: ALBUTEROL HFA INHALER INHALATION SCH ×4 (08:15→20:26)
[2020-11-09] MEDS: SYMBICORT 160-4.5 MCG INHALER INHALATION SCH ×2 (08:15→20:26)
[2020-11-09] MEDS: TIOTROPIUM 18 MCG/PUFF INHALER INHALATION SCH (08:15)
--- NOTE | 2020-11-09 09:10 | XR ---
EXAMINATION TYPE: XR chest 1V DATE OF EXAM: 11/09/2020 COMPARISON: 11/04/2020 HISTORY: Shortness of breath TECHNIQUE: Single frontal view of the chest is obtained. FINDINGS: Heart is enlarged and there is bibasilar subsegmental consolidation. Hyperinflation sugges ts COPD. No pneumothorax. No sizable pleural effusion. No overt failure. IMPRESSION: 1. COPD with cardiomegaly and basilar atelectasis or infiltrate correlate clinically.
[2020-11-09 09:31] LABS: African American GFR (CKD) 105.5 (60.0-200.0); Anion Gap 6.9 mmol/L (4.00-12.00); BUN/Creat Ratio 22.86 Ratio (12.00-20.00); Calcium 7.8 mg/dL (8.7-10.3); Carbon Dioxide 34.1 mmol/L (21.6-31.8); Potassium 3.4 mmol/L (3.5-5.5)
[2020-11-09] MEDS: amLODIPine 5 MG TAB PO SCH (09:33)
[2020-11-09] MEDS: ASCORBIC ACID 500 MG TAB PO SCH (09:33)
[2020-11-09] MEDS: dexAMETHasone 2 MG TAB PO SCH (09:33)
[2020-11-09] MEDS: ZINC SULFATE 220 MG CAP PO SCH (09:33)
[2020-11-09] MEDS: METOPROLOL TARTRATE 25 MG TAB PO SCH (09:34)
[2020-11-09] MEDS: LORATADINE 10 MG TAB PO SCH (09:34)
[2020-11-09] MEDS: PANTOPRAZOLE 40 MG TABLET PO SCH (09:34)
[2020-11-09] MEDS: FUROSEMIDE 40 MG TAB PO SCH ×2 (09:35→21:00)
[2020-11-09] MEDS: FLUTICASONE 50MCG/SPRAY NASAL 16GM EA NOSTRIL SCH (09:36)
[2020-11-09 09:57] LABS: INR 2.64 (0.90-1.11); Prothrombin Time 26.5 sec (9.9-11.9)
--- NOTE | 2020-11-09 15:48 | P.PN ---
Subjective Progress Note Date: 11/09/20 dyspnea Cough Covid 19 infection Urinary tract infection-culture negative 75-year-old male was transferred from care home facility due to the fact that the care home facility staff was concerned with the patient's acute change of mental status/generalized weakness/dyspnea/generalized malaise. Patient had extensive diagnostic workup in the emergency department revealing acute delirium possibly related to to underlying medical conditions and urinary tract infection.PATIENT HAS SIGNIFICANT MEDICAL HISTORY DEMENTIA,copd, chf WITH SYSTOLIC DYSFUNCTION, MORBID OBESITY, BIPOLAR DISORDER, OBSTRUCTIVE SLEEP APNEA ON bIpap,ASTHMA, CORONARY ARTERY DISEASE, dvt, HYPERLIPIDEMIA AND HYPERTENSION AND PULMONARY EMBOLISMS.PATIENT ABLE TO ANSWER QUESTIONS WITH FEW WORD SENTENCES APPROPRIATE TO PERSON PLACE AND TIME NOT CURRENTLY APPROPRIATE TO SITUATION. CONSULTATION WITH CARDIOLOGY AND PULMONOLOGY.patient intermittent complain of shortness of breath, and nonproductive cough. 11/07/2020 Patient is seen and evaluated in follow-up and continues to be on oxygen via nasal cannula at 5 liters with the use of the biPap at night. Patient continues to be confused although appears more awake and alert today. Patient does reside in a nursing facility and he is able to state that he is here at the hospital. Patient is maintained on IV antibiotics and will continue at this time. Will repeat a.m. labs. PT/OT to evaluate the patient. Pulmonary is following. Patient was recently diagnosed with Covid 19 at the end of September. 11/08/2020 Patient is seen in follow-up currently sitting up in the chair and appears more awake and at baseline today. Patient is maintained on 5 L via nasal cannula which is his baseline as well. Patient was in a halfway prior to arrival from recent hospitalization and continues to be quite debilitated and minimal of 2 person assist. PT/OT to evaluate the patient and will discuss with case management and social work about discharge planning and returning to ECF once stabilized and discharged. Pulmonary is following. Current INR is 2.8 and will continue with current Coumadin dose. Sodium is 136 with a potassium of 3.5 and current creatinine is 0.8. Will continue with electrolyte replacement protocol as needed. 11/09/2020 Patient is seen and evaluated in follow-up currently sitting up in bed resting although arousable. Patient is maintained on 4 L of oxygen via nasal cannula at 95%. Patient is afebrile. Case management and social work following and working on discharge planning as niece was requesting other alternatives to ECF and if patient was able to care for himself and get up and go to the bathroom by himself she would take him home. Patient continues to require maximum assistance and is being followed by PT/OT recommending continued subacute rehab. Patient will likely need to return to [facility] as he was there previously for continued PT/OT therapy for strength and mobility. Patient's chest x-ray today shows COPD with cardiomegaly and basilar atelectasis or infiltrate with no pneumothorax or sizable pleural effusions noted. Patient is on Coumadin and INR today is 2.64 with pharmacy to dose. Sodium is 136, potassium is 3.4 and will be replaced, creatinine is 0.7. Review of systems: Constitutional: Reports fatigue, no reports of fever, or chills Cardiovascular: No reports of chest pain or palpitations Respiratory: reports shortness of breath and cough GI: No reports of nausea, vomiting, or diarrhea : No reports of dysuria or retention Neurovascular: Reports weakness All medications have been reviewed Objective - Vital Signs Vital signs: Vital Signs Temp 98.0 F 11/09/20 11:00 Pulse 67 11/09/20 11:00 Resp 18 11/09/20 11:00 BP 110/67 11/09/20 11:00 Pulse Ox 90 L 11/09/20 11:00 Intake & Output 11/08/20 11/09/20 11/09/20 18:59 06:59 18:59 Intake Total 240 100 220 Balance 240 100 220 Intake: Intake, IV Titration 240 Amount Sodium Chloride 0.9% 1, 240 000 ml @ 75 mls/hr IV . [id number] [facility] Rx#:[id number] Oral 100 220 Other: Voiding Method Diaper Diaper Incontinent Incontinent # Voids 4 # Bowel Movements 5 - Exam Gen: This is a 75-year-old male sitting up in bed asleep although arousable, alert and oriented 2, well-developed, well-nourished, obese HEENT: Head is atraumatic, normocephalic. Pupils equal, round. Sclerae is anicteric. Nasal cannula noted NECK: Supple. No JVD. No lymphadenopathy. No thyromegaly. LUNGS: Diminished breath sounds bilaterally with some scattered rhonchi noted No intercostal retractions. HEART: S1, S2 are muffled ABDOMEN: Soft. Obese. Bowel sounds are present. No masses. No tenderness. EXTREMITIES: No pedal edema. No calf tenderness. NEUROLOGICAL: Patient is awake, alert and oriented x1-2. Diffusely weak - Labs CBC & Chem 7: 11/08/20 06:16 11/09/20 05:28 Labs: Abnormal Lab Results - Last 24 Hours (Table) 11/09/20 11/09/20 Range/Units 05:28 05:28 PT 26.5 H (9.9-11.9) sec INR 2.64 H (0.90-1.11) Potassium 3.4 L (3.5-5.5) mmol/L Chloride 95 L (96-109) mmol/L Carbon Dioxide 34.1 H (21.6-31.8) mmol/L BUN/Creatinine Ratio 22.86 H (12.00-20.00) Ratio Glucose 135 H (70-110) mg/dL Calcium 7.8 L (8.7-10.3) mg/dL Microbiology - Last 24 Hours (Table) 11/02/20 22:32 Blood Culture - Final Blood No Growth after 144 hours Assessment and Plan Assessment: Acute deliriumpossibly due to medical condition Acute urinary tract infectionculture-negative Recent Covid 19 infection on 10/23/2020 pneumoniacontinue broad-spectrum antibiotics History of asthma History of coronary artery disease History of heart failure unspecified diastolic/systolic COPD without exacerbation Dementia History of DVTs Hyperlipidemia Hypertension History of pulmonary embolism Sleep apnea Full code Plan: Acute deliriumpossibly due to medical condition covid 19 infectiondiagnosed 10/23/2020continue consultation with pulmonary critical care Acute urinary tract infectionculture-negative Pneumonia Continue consultation with pulmonary critical care for recommendations of COPD Continue home medications Continue medical management and continue with current medications and symptomatic treatment. PT/OT following the patient recommending continued sub acute rehab for strength and mobility. Case management and social work following and working on discharge planning needs and return to ECF or another facility for long-term care being discussed. Niece requesting other possible ECF options. Further recommendations to follow depending on the clinical course of the patient. Possible discharge to ECF in [address] Mott to resume care of this patient on 11/10/2020
--- NOTE | 2020-11-09 16:17 | PN ---
PROGRESS NOTE PULMONARY/CRITICAL CARE PROGRESS NOTE: DATE OF SERVICE: 11/09/2020 This is a 75-year-old male who was admitted back on November 04. The patient came in with a diagnosis of acute on chronic hypoxemic respiratory failure, in part related to underlying COVID-19 pneumonitis/pneumonia, as well as possible recanalized left lower lobe pulmonary embolism. Anyway, the patient is doing reasonably well. He appears to still be short of breath. He is on 4 L nasal O2. He is getting saline at 20 mL an hour. Not a particularly good historian. The patient states that he is feeling about the same today as he did yesterday. He does have chest congestion and cough. Denies any fever, chills. Denies any phlegm production when he does cough. The patient does have a recent hospitalization for acute COPD exacerbation as well as exacerbation of diastolic congestive heart failure. He has multiple diagnoses including sleep apnea, hypertension, hyperlipidemia, pulmonary embolism, urinary tract infection, and obesity. Current vital signs are reviewed, temperature is 98, heart rate 67, respiratory rate 18, blood pressure 110/67 mean 81 and 4 L saturations only 90%. Appears in no acute distress. Mildly tachypneic and dyspneic. HEENT: Examination is grossly unremarkable. Nasal O2 noted. NECK: Supple full range of motion. No adenopathy. Neck veins are flat. CARDIOVASCULAR: Examination reveals regular rhythm and rate. Heart rate 67. S1, S2 normal. No S3, S4, or murmur. LUNGS: Reveal diffuse coarse rhonchi. Breath sounds are diminished. A few scattered crackles. No wheezes. Breath sounds equal bilaterally. He does not take real deep breaths. ABDOMEN: Obese, bowel sounds are heard. EXTREMITIES: Intact. Minimal edema. SKIN: Without rash. NEUROLOGIC: Examination is brief but nonfocal. LABS: Reviewed. PT 26.5, INR 2.64. Sodium 136, potassium 3.4, chloride 95, CO2 is 34, anion gap is 6.9, BUN and creatinine were 16 and 0.7. Procalcitonin 0.03. No additional labs are reviewed. Microbiology is currently negative. Chest x-ray shows maybe some denseness or consolidation in the left lower lobe/retrocardiac area as the left hemidiaphragm especially medially is not well visualized. CURRENT MEDICATIONS: Reviewed. The patient is on Tylenol, albuterol inhaler, Xanax, Norvasc, vitamin C, Lipitor, Symbicort, Decadron, Flonase nasal spray, Lasix, Imodium, Claritin, Cozaar, magnesium replacement protocol, metoprolol, Narcan, Protonix, potassium replacement, Spiriva warfarin, and zinc. ASSESSMENT: 1. Acute on chronic hypoxemic respiratory failure, secondary to COVID-19 pneumonitis. 2. Previous history of pulmonary embolism, with possible recanalized left lower lobe pulmonary embolus or chronic emboli in the left lower lobe. Patient remains on warfarin and is therapeutic. 3. Recent hospitalization for acute COPD exacerbation as well as acute exacerbation of diastolic congestive heart failure. 4. History of coronary artery disease. 5. Moderately severe chronic obstructive pulmonary disease, with an FEV1 that is 55% of predicted. 6. History of sleep apnea syndrome, maintained on CPAP. 7. Essential hypertension. 8. Hyperlipidemia. 9. History of pulmonary embolism. 10.Previous history of urinary tract infection. 11.Morbid obesity. 12.General medical debility. 13.Mental status changes, likely related to metabolic encephalopathy. 14.Bipolar disorder. 15.Chronic back pain. PLAN: The patient continues on his current regimen. This INR is therapeutic. The rest of his medications appear to be appropriate. Will continue to follow. No additional recommendations are made. Overall prognosis remains guarded. The patient remains on 4 L nasal cannula. Saturations are just at 90%. MMODL / IJN: [id number] /
[2020-11-09] MEDS ORDERED: WARFARIN 3 MG TAB PO ONE (18:00)
[2020-11-09] MEDS: LOSARTAN 25 MG TAB PO SCH (21:00)
[2020-11-09] MEDS: ATORVASTATIN 40 MG TAB PO SCH (21:00)
[2020-11-10 06:42] LABS: Basophils % (A) 1 %; Eosinophils % (A) 0 %; HCT 45.7 % (39.0-53.0); HGB 14.9 gm/dL (13.0-17.5); Lymphocytes # (A) 0.7 k/uL (1.0-4.8); Lymphocytes % (A) 14 %; MCH 30.1 pg (25.0-35.0); MCHC 32.6 g/dL (31.0-37.0); MCV 92.2 fL (80.0-100.0); Mean Platelet Volume 7.2; Monocytes # (A) 0.3 k/uL (0-1.0); Monocytes % (A) 5 %; Neutrophils # (A) 3.8 k/uL (1.3-7.7); Neutrophils % (A) 78 %; Platelet Count 204 k/uL (150-450); RBC 4.95 m/uL (4.30-5.90); RDW 13.2 % (11.5-15.5); WBC 4.9 k/uL (3.8-10.6)
[2020-11-10 06:48] LABS: ALT 65 U/L (4-49); AST 34 U/L (17-59); African American GFR (CKD) >90 (>60 ml/min/1.73 sqM); Albumin 2.9 g/dL (3.5-5.0); Albumin/Globulin Ratio 1.1; Alkaline Phosphatase 53 U/L (38-126); Anion Gap 3 mmol/L; Blood Urea Nitrogen 21 mg/dL (9-20); Calcium 8.1 mg/dL (8.4-10.2); Carbon Dioxide 35 mmol/L (22-30); Chloride 94 mmol/L (98-107); Globulin 2.6 g/dL; Glucose 136 mg/dL (74-99); Non-African American GFR(CKD) 88 (>60 ml/min/1.73 sqM); Potassium 4.2 mmol/L (3.5-5.1); Sodium 132 mmol/L (137-145); Total Bilirubin 0.8 mg/dL (0.2-1.3); Total Protein 5.5 g/dL (6.3-8.2)
[2020-11-10] MEDS: FUROSEMIDE 40 MG TAB PO SCH ×2 (08:28→21:39)
[2020-11-10] MEDS: LORATADINE 10 MG TAB PO SCH (08:28)
[2020-11-10] MEDS: dexAMETHasone 2 MG TAB PO SCH (08:28)
[2020-11-10] MEDS: ASCORBIC ACID 500 MG TAB PO SCH (08:28)
[2020-11-10] MEDS: ZINC SULFATE 220 MG CAP PO SCH (08:28)
[2020-11-10] MEDS: PANTOPRAZOLE 40 MG TABLET PO SCH (08:29)
[2020-11-10] MEDS: amLODIPine 5 MG TAB PO SCH (08:29)
[2020-11-10] MEDS: FLUTICASONE 50MCG/SPRAY NASAL 16GM EA NOSTRIL SCH (08:29)
[2020-11-10] MEDS: METOPROLOL TARTRATE 25 MG TAB PO SCH (08:29)
[2020-11-10] MEDS: SYMBICORT 160-4.5 MCG INHALER INHALATION SCH ×2 (09:02→20:13)
[2020-11-10] MEDS: ALBUTEROL HFA INHALER INHALATION SCH ×4 (09:02→20:13)
[2020-11-10] MEDS: TIOTROPIUM 18 MCG/PUFF INHALER INHALATION SCH (09:02)
[2020-11-10 09:49] LABS: INR 2.95 (0.90-1.11); Prothrombin Time 29.4 sec (9.9-11.9)
--- NOTE | 2020-11-10 14:59 | PN ---
PROGRESS NOTE PULMONARY/CRITICAL CARE PROGRESS NOTE: DATE OF SERVICE: November 10, 2020. This is a 75-year-old male who was admitted back on November 04. He came in with a diagnosis of acute on chronic hypoxemic respiratory failure, in part related to underlying COVID-19 pneumonia/pneumonitis, as well as possible pulmonary embolism. The patient is doing okay. Today, he was a bit more short of breath. The nurse was working with him when I went into the room. Currently, he is on 3.5 L of nasal cannula. He is on saline at 20 mL an hour. The patient states that he has been coughing a bit. Not producing any phlegm. He has sort of a weird breathing pattern where he starts huffing and puffing and then the patient seems to settle down. He does have minimal cough, but does not produced any phlegm. No fever, chills. No chest pain or chest discomfort. He does suffer from heart failure, sleep apnea, hypertension, hyperlipidemia, pulmonary embolism, urinary tract infection, and obesity. PHYSICAL EXAMINATION: VITAL SIGNS: Current vital signs are reviewed. His temperature is 97.9, heart rate 67, respiratory rate 18, blood pressure 104/65, mean 78, 3 L saturation 94%. Appears in mild respiratory distress. HEENT: Examination is grossly unremarkable. Nasal O2 in place. NECK: Supple. Full range of motion. No adenopathy. Neck veins are flat. CARDIOVASCULAR: Examination reveals regular rhythm and rate. Heart rate 67 beats per minute. S1, S2 normal. No S3, S4, or murmur. LUNGS: Expiratory wheezes and rhonchi. Breath sounds are diminished. There are some basilar crackles. ABDOMEN: Obese. Bowel sounds are heard. EXTREMITIES: Intact. Minimal edema. SKIN: Without rash. NEUROLOGIC: Examination is difficult to assess but appears to be relatively normal. The patient has a very flat affect. He has a very monotone voice. LAB DATA: Reviewed. White count 4.9, hemoglobin 14.9, hematocrit 45.7, platelet count 304,000, PT, INR was 29.4 and 2.95. Sodium 132, potassium 4.2, chloride 94, CO2 35, anion gap is 3. BUN and creatinine were 21 and 0.77. The rest of the labs look okay. Procalcitonin level done a couple days ago was 0.03. Microbiology is all negative. The most recent chest x-ray dated November 09 shows cardiomegaly with bibasilar atelectasis or infiltrate. CURRENT MEDICATIONS: Reviewed. The patient is on Tylenol, albuterol inhaler, Xanax, amlodipine, vitamin C, Lipitor, Symbicort, Decadron, Flonase nasal spray, Lasix, Imodium, loratadine, Cozaar, magnesium replacement, metoprolol, Narcan, Protonix, potassium replacement, Spiriva, warfarin, and zinc. ASSESSMENT: 1. Acute on chronic hypoxemic respiratory failure secondary to COVID-19 pneumonitis. 2. Prior history of pulmonary embolism with possible recanalized left lower lobe pulmonary embolism or chronic emboli in the left lower lobe. The patient remains on warfarin and is therapeutic. 3. Recent hospitalization for acute chronic obstructive pulmonary disease exacerbation as well as acute exacerbation of diastolic congestive heart failure. 4. History of coronary artery disease. 5. Mildly severe chronic obstructive pulmonary disease with an FEV1 that is 55% of predicted. 6. History of sleep apnea syndrome, maintained on CPAP. 7. Essential hypertension. 8. Hyperlipidemia. 9. History of pulmonary embolism. 10.Prior history of urinary tract infection. 11.Morbid obesity. 12.General medical debility. 13.Mental status changes, likely related to metabolic encephalopathy. 14.Bipolar disorder. 15.Chronic back pain. PLAN: I will review the patient's medications and make sure he is on appropriate medications. He was a bit more wheezy today. I may order him high dose corticosteroids. We will continue to follow. Prognosis is guarded. MMODL / IJN: [id number] /
[2020-11-10] MEDS ORDERED: WARFARIN 2.5 MG TAB PO ONE (18:00)
[2020-11-10] MEDS: methylPREDNISolone SOD SUCCI 125 MG/2 ML VIAL IV SCH (18:42)
--- NOTE | 2020-11-10 19:35 | P.PN ---
Subjective Progress Note Date: 11/10/20 Principal diagnosis: dyspnea Cough Covid 19 infection Urinary tract infection-culture negative 75-year-old male was transferred from senior living facility due to the fact that the senior living facility staff was concerned with the patient's acute change of mental status/generalized weakness/dyspnea/generalized malaise. Patient had extensive diagnostic workup in the emergency department revealing acute delirium possibly related to to underlying medical conditions and urinary tract infection.on examination today the patient appears mild dyspneic, mild tachypneic, and scattered wheezes during exam. Patient complaint of cough without production. Patient complaint of dyspnea with movement. Patient denies fever, chills, chest pain or discomfort..PATIENT ABLE TO ANSWER QUESTIONS WITH FEW WORD SENTENCES APPROPRIATE TO PERSON PLACE AND TIME NOT CURRENTLY APPROPRIATE TO SITUATION. Objective - Vital Signs Vital signs: Vital Signs Temp 98.8 F 11/10/20 17:00 Pulse 71 11/10/20 17:00 Resp 18 11/10/20 17:00 BP 110/71 11/10/20 17:00 Pulse Ox 95 11/10/20 17:00 Intake & Output 11/10/20 11/10/20 11/11/20 06:59 18:59 06:59 Intake Total 240 Balance 240 Intake: Oral 240 Other: Voiding Method Diaper Diaper Incontinent Incontinent # Voids 4 4 # Bowel Movements 1 - Constitutional General appearance: Present: mild distress, morbidly obese - EENT Eyes: Present: EOMI, PERRLA ENT: Present: hard of hearing Ears: bilateral: normal - Neck Carotids: bilateral: upstroke normal Thyroid: bilateral: normal size - Respiratory Respiratory: bilateral: wheezing (scattered throughout lung cevallos) - Cardiovascular Details: normal sinus rhythm with occasional PVCs Heart rate: 71 Rhythm: regular Heart sounds: normal: S1, S2 - Peripheral edema ankle Peripheral Edema: bilateral: Trace - Peripheral pulses radial pulse Peripheral Pulses: bilateral: Normal - Gastrointestinal General gastrointestinal: Present: decreased bowel sounds - Integumentary Integumentary: Present: decreased turgor, pale - Musculoskeletal Musculoskeletal: Present: generalized weakness - Psychiatric Psychiatric Comment(s): alert to person and place - Allied health notes Allied health notes reviewed: nursing - Labs CBC & Chem 7: 11/10/20 05:50 11/10/20 05:50 Labs: Abnormal Lab Results - Last 24 Hours (Table) 11/10/20 11/10/20 11/10/20 Range/Units 05:50 05:50 05:50 Lymphocytes # 0.7 L (1.0-4.8) k/uL PT 29.4 H (9.9-11.9) sec INR 2.95 H (0.90-1.11) Sodium 132 L (137-145) mmol/L Chloride 94 L (98-107) mmol/L Carbon Dioxide 35 H (22-30) mmol/L BUN 21 H (9-20) mg/dL Glucose 136 H (74-99) mg/dL Calcium 8.1 L (8.4-10.2) mg/dL ALT 65 H (4-49) U/L Total Protein 5.5 L (6.3-8.2) g/dL Albumin 2.9 L (3.5-5.0) g/dL - Imaging and Cardiology Chest x-ray: report reviewed Assessment and Plan Assessment: Acute deliriumpossibly due to medical condition Acute urinary tract infectionculture-negative History of asthma History of coronary artery disease History of heart failure diastolic COPD without exacerbation Dementia History of DVTs Hyperlipidemia Hypertension History of pulmonary embolism Sleep apnea (1) Delirium due to general medical condition Narrative/Plan: Acute delirium possibly due to general medical condition Current Visit: Yes Status: Acute Code(s): F05 - DELIRIUM DUE TO KNOWN PHYSIOLOGICAL CONDITION SNOMED Code(s): 1842158 (2) UTI (urinary tract infection) Narrative/Plan: Urinalysis reveals urinary tract [id number] Current Visit: Yes Status: Resolved Code(s): N39.0 - URINARY TRACT INFECTION, SITE NOT SPECIFIED SNOMED Code(s): 47501998 Plan: Acute deliriumpossibly due to medical condition covid- 19 infectiondiagnosed 10/23/2020continue consultation with pulmonary critical care Acute urinary tract infectionculture-negative Continue consultation with pulmonary critical care for recommendations of COPD Continue home medications Continue medical management Time with Patient: Greater than 30
[2020-11-10] MEDS: ATORVASTATIN 40 MG TAB PO SCH (21:39)
[2020-11-10] MEDS: LOSARTAN 25 MG TAB PO SCH (21:39)
[2020-11-11] MEDS: methylPREDNISolone SOD SUCCI 125 MG/2 ML VIAL IV SCH ×5 (00:27→20:44)
--- NOTE | 2020-11-11 08:57 | XR ---
EXAMINATION TYPE: XR chest 1V portable DATE OF EXAM: 11/11/2020 COMPARISON: 11/09/2020 HISTORY: Shortness of breath TECHNIQUE: Single frontal view of the chest is obtained. FINDINGS: Heart is enlarged and there is a hiatal hernia. Diffuse hyperinflation suggestive of COPD. Diffuse osteopenia with arthropathy of the shoulders. Subsegmental areas of consolidation noted. IMPRESSION: 1. Stable x-ray demonstrating COPD with cardiomegaly and basilar atelectasis favored over pneumonia c orrelate clinically.
--- NOTE | 2020-11-11 09:25 | P.PN ---
Subjective Progress Note Date: 11/11/20 Principal diagnosis: dyspnea Cough Covid 19 infection 75-year-old male was [facility] due to the fact that the [facility] facility staff was concerned with the patient's acute change of mental status/generalized weakness/dyspnea/generalized malaise. Patient had extensive diagnostic workup in the emergency department revealing acute delirium possibly related to to underlying medical conditions .on examination today the patient appears mild dyspneic, mild tachypneic, and scattered wheezes during exam. Patient complaint of cough without production. Patient complaint of dyspnea with movement. Patient denies fever, chills, chest pain or discomfort..PATIENT ABLE TO ANSWER QUESTIONS WITH FEW WORD SENTENCES APPROPRIATE TO PERSON PLACE AND TIME NOT CURRENTLY APPROPRIATE TO SITUATION. Objective - Vital Signs Vital signs: Vital Signs Temp 97.7 F 11/11/20 05:00 Pulse 61 11/11/20 05:00 Resp 18 11/10/20 21:32 BP 124/77 11/11/20 05:00 Pulse Ox 91 L 11/11/20 05:00 Intake & Output 11/10/20 11/11/20 11/11/20 18:59 06:59 18:59 Intake Total 240 Balance 240 Intake: Oral 240 Other: Voiding Method Diaper Diaper Incontinent Incontinent # Voids 4 3 # Bowel Movements 1 1 - Constitutional General appearance: Present: mild distress - EENT Eyes: Present: EOMI, PERRLA Ears: bilateral: normal - Respiratory Respiratory: bilateral: wheezing (Scattered throughout lung cevallos) - Cardiovascular Details: Normal sinus rhythm Heart rate: 74 Rhythm: regular Heart sounds: normal: S1, S2 - Peripheral edema ankle Peripheral Edema: bilateral: Trace - Peripheral pulses radial pulse Peripheral Pulses: bilateral: Normal - Gastrointestinal General gastrointestinal: Present: normal bowel sounds - Integumentary Integumentary: Present: decreased turgor, pale - Neurologic Neurologic: Present: CNII-XII intact - Musculoskeletal Musculoskeletal: Present: generalized weakness - Psychiatric Psychiatric Comment(s): Alert to person place Disoriented to time and situation - Allied health notes Allied health notes reviewed: case management - Labs CBC & Chem 7: 11/10/20 05:50 11/10/20 05:50 Labs: Abnormal Lab Results - Last 24 Hours (Table) 11/10/20 Range/Units 05:50 PT 29.4 H (9.9-11.9) sec INR 2.95 H (0.90-1.11) - Imaging and Cardiology Chest x-ray: report reviewed Assessment and Plan Assessment: Acute deliriumpossibly due to medical condition History of asthma History of coronary artery disease History of heart failure diastolic COPD without exacerbation Dementia History of DVTs Hyperlipidemia Hypertension History of pulmonary embolism Sleep apnea (1) Delirium due to general medical condition Current Visit: Yes Status: Acute Code(s): F05 - DELIRIUM DUE TO KNOWN PHYSIOLOGICAL CONDITION SNOMED Code(s): 1266266 (2) UTI (urinary tract infection) Narrative/Plan: Urinalysis reveals urinary tract [id number] Current Visit: No Status: Ruled-out Code(s): N39.0 - URINARY TRACT INFECTION, SITE NOT SPECIFIED SNOMED Code(s): 51065263 Plan: Acute deliriumpossibly due to medical condition covid- 19 infectiondiagnosed 10/23/2020continue consultation with pulmonary critical care Continue consultation with pulmonary critical care for recommendations of COPD Continue home medications Continue medical management Time with Patient: Greater than 30
[2020-11-11] MEDS: SYMBICORT 160-4.5 MCG INHALER INHALATION SCH ×2 (09:29→19:17)
[2020-11-11] MEDS: TIOTROPIUM 18 MCG/PUFF INHALER INHALATION SCH (09:29)
[2020-11-11] MEDS: ALBUTEROL HFA INHALER INHALATION SCH ×4 (09:29→19:17)
[2020-11-11 09:40] LABS: Basophils % (A) 1 %; Eosinophils % (A) 0 %; HCT 46.3 % (39.0-53.0); HGB 15.2 gm/dL (13.0-17.5); Lymphocytes # (A) 0.5 k/uL (1.0-4.8); Lymphocytes % (A) 11 %; MCH 29.9 pg (25.0-35.0); MCHC 32.8 g/dL (31.0-37.0); MCV 91.2 fL (80.0-100.0); Mean Platelet Volume 7.6; Monocytes # (A) 0.2 k/uL (0-1.0); Monocytes % (A) 5 %; Neutrophils # (A) 3.3 k/uL (1.3-7.7); Neutrophils % (A) 82 %; Platelet Count 233 k/uL (150-450); RBC 5.08 m/uL (4.30-5.90); RDW 13.6 % (11.5-15.5)
[2020-11-11] MEDS: ASCORBIC ACID 500 MG TAB PO SCH (09:45)
[2020-11-11] MEDS: ZINC SULFATE 220 MG CAP PO SCH (09:45)
[2020-11-11] MEDS: METOPROLOL TARTRATE 25 MG TAB PO SCH (09:46)
[2020-11-11] MEDS: LORATADINE 10 MG TAB PO SCH (09:46)
[2020-11-11] MEDS: FUROSEMIDE 40 MG TAB PO SCH ×2 (09:49→20:45)
[2020-11-11] MEDS: FLUTICASONE 50MCG/SPRAY NASAL 16GM EA NOSTRIL SCH (09:49)
[2020-11-11] MEDS: amLODIPine 5 MG TAB PO SCH (09:49)
[2020-11-11] MEDS: PANTOPRAZOLE 40 MG TABLET PO SCH (09:49)
[2020-11-11 09:56] LABS: ALT 60 U/L (4-49); AST 23 U/L (17-59); African American GFR (CKD) >90 (>60 ml/min/1.73 sqM); Albumin 2.9 g/dL (3.5-5.0); Albumin/Globulin Ratio 1.1; Alkaline Phosphatase 65 U/L (38-126); Anion Gap 4 mmol/L; Blood Urea Nitrogen 24 mg/dL (9-20); Carbon Dioxide 35 mmol/L (22-30); Chloride 95 mmol/L (98-107); Globulin 2.6 g/dL; Glucose 202 mg/dL (74-99); INR 2.85 (0.90-1.11); Non-African American GFR(CKD) 83 (>60 ml/min/1.73 sqM); Potassium 4.4 mmol/L (3.5-5.1); Prothrombin Time 28.5 sec (9.9-11.9); Sodium 134 mmol/L (137-145); Total Bilirubin 0.8 mg/dL (0.2-1.3); Total Protein 5.5 g/dL (6.3-8.2)
[2020-11-11 11:18] LABS: Glucose,Whole Blood 339 mg/dL (75-99)
[2020-11-11] MEDS: INSULIN ASPART (NovoLOG) 100 UNIT/ML VIAL SQ SCH ×3 (12:47→20:44)
--- NOTE | 2020-11-11 14:15 | PN ---
PROGRESS NOTE PULMONARY/CRITICAL CARE PROGRESS NOTE: DATE OF SERVICE: 11/11/2020 A 75-year-old male who was admitted back on November 04, 2020. He came with a diagnosis of acute on chronic hypoxemic respiratory failure, in part related to underlying COVID- 19 pneumonia/pneumonitis as well as possible pulmonary embolism. Currently, the patient is a bit more short of breath today than he was yesterday. He has a very weird, noisy breathing pattern. Anyway, he still on 4 L nasal cannula, which is what he still was on yesterday. He is getting saline at 20 mL an hour. Very poor historian. He states that he is having chest congestion and cough. He is producing some phlegm. He is spitting a lot of secretions from his mouth, probably more saliva than anything else. Again, a very weird breathing pattern. He does suffer from heart failure, sleep apnea, hypertension, hyperlipidemia, pulmonary embolism, urinary tract infection, and obesity. Clinically, he looks about the same to me today as he did yesterday. Current vital signs include a temperature of 97.5, heart rate 84, respiratory rate 18, blood pressure 118/79 mean 92 and saturations are anywhere from 90%-94% on 4 L. Appears in no acute distress, although he does have a very weird breathing pattern and has had very noisy respirations. HEENT: Examination is grossly unremarkable. Nasal O2 in place. NECK: Supple, full range of motion. No adenopathy. Neck veins are flat. CARDIOVASCULAR: Examination reveals regular rhythm and rate. Heart rate between 61 and 85 beats per minute. S1, S2 normal. Heart sounds are distant. LUNGS: Reveal diffuse coarse bilateral rhonchi. CHEST: He has a lot of chest congestion on auscultation. No wheezes. No crackles. ABDOMEN: Obese, bowel sounds are heard. EXTREMITIES: Reveal some mild edema. No cyanosis or clubbing. SKIN: Without rash. NEUROLOGIC: Examination is brief but nonfocal. LABS: Reviewed. White count 14, hemoglobin 15.2, hematocrit 46.3, platelet count 233,000. PT, INR is therapeutic at 28.5, and 2.85. Sodium 134, potassium 4.4, chloride 95, CO2 is 35. BUN and creatinine were 24 and 0.87. Anion gap was normal. Glucose 202, calcium 8, ALT 60, AST 23, procalcitonin 0.04. Microbiology including blood and urine is all negative. The patient did have a chest x-ray today. The chest x-ray shows cardiomegaly and bibasilar atelectasis versus infiltrate. CURRENT MEDICATIONS: Reviewed. The patient is on Tylenol, albuterol inhaler, Xanax, amlodipine, vitamin C, Lipitor, Symbicort, Flonase nasal spray, Lasix, insulin, Imodium, loratadine, Cozaar, magnesium protocol, Solu-Medrol, metoprolol, Narcan, Protonix, potassium replacement, Spiriva, Coumadin, and zinc. ASSESSMENT: 1. Acute on chronic hypoxemic respiratory failure secondary to COVID-19 pneumonitis. 2. Prior history of pulmonary embolism, left lower lobe, currently on warfarin and therapeutic. 3. Recent hospitalization for acute COPD exacerbation as well as acute exacerbation of diastolic congestive heart failure. 4. History of coronary artery disease. 5. Moderately severe chronic obstructive pulmonary disease, with an FEV1 that is 55% of predicted. 6. History of sleep apnea syndrome, maintained on home CPAP. 7. History of essential hypertension. 8. Hyperlipidemia. 9. History of pulmonary embolism. 10.Prior history of urinary tract infection. 11.Morbid obesity. 12.General medical debility. 13.Mental status changes, stable. 14.Bipolar disorder. 15.Chronic back pain. PLAN: Currently, the patient appears to be about the same way as he was yesterday. When you ask him, he states he feels worse. His oxygenation is what it was yesterday. His vital signs are basically stable. Chest x-ray does not show any gross abnormalities other than maybe infiltrate or atelectasis at the lung bases. Additional recommendations and suggestions are forthcoming. Prognosis is guarded. MMODL / IJN: [id number] /
[2020-11-11 17:15] LABS: Glucose,Whole Blood 249 mg/dL (75-99)
[2020-11-11] MEDS ORDERED: WARFARIN 2.5 MG TAB PO ONE (18:00)
[2020-11-11 20:29] LABS: Glucose,Whole Blood 245 mg/dL (75-99)
[2020-11-11] MEDS: LOSARTAN 25 MG TAB PO SCH (20:45)
[2020-11-11] MEDS: ATORVASTATIN 40 MG TAB PO SCH (20:45)
[2020-11-12] MEDS: INSULIN ASPART (NovoLOG) 100 UNIT/ML VIAL SQ SCH ×3 (03:27→12:00)
[2020-11-12] MEDS: methylPREDNISolone SOD SUCCI 125 MG/2 ML VIAL IV SCH ×2 (05:33→11:59)
[2020-11-12 06:45] LABS: Basophils % (A) 0 %; Eosinophils % (A) 0 %; HCT 42.7 % (39.0-53.0); HGB 14.4 gm/dL (13.0-17.5); INR 3.7 (<1.2); Lymphocytes # (A) 0.4 k/uL (1.0-4.8); Lymphocytes % (A) 6 %; MCH 31.3 pg (25.0-35.0); MCHC 33.6 g/dL (31.0-37.0); MCV 92.9 fL (80.0-100.0); Monocytes # (A) 0.5 k/uL (0-1.0); Monocytes % (A) 6 %; Neutrophils # (A) 6.4 k/uL (1.3-7.7); Neutrophils % (A) 86 %; Platelet Count 243 k/uL (150-450); Prothrombin Time 36.8 sec (9.0-12.0); RBC 4.59 m/uL (4.30-5.90); RDW 13.3 % (11.5-15.5); WBC 7.4 k/uL (3.8-10.6)
[2020-11-12 06:53] LABS: ALT 46 U/L (4-49); AST 18 U/L (17-59); African American GFR (CKD) >90 (>60 ml/min/1.73 sqM); Albumin 2.8 g/dL (3.5-5.0); Albumin/Globulin Ratio 1.2; Alkaline Phosphatase 97 U/L (38-126); Anion Gap 3 mmol/L; Blood Urea Nitrogen 29 mg/dL (9-20); Calcium 7.9 mg/dL (8.4-10.2); Carbon Dioxide 38 mmol/L (22-30); Chloride 96 mmol/L (98-107); Globulin 2.4 g/dL; Glucose 246 mg/dL (74-99); Magnesium 2.1 mg/dL (1.6-2.3); Non-African American GFR(CKD) 83 (>60 ml/min/1.73 sqM); Potassium 3.4 mmol/L (3.5-5.1); Sodium 137 mmol/L (137-145); Total Bilirubin 0.6 mg/dL (0.2-1.3); Total Protein 5.2 g/dL (6.3-8.2)
[2020-11-12 07:07] LABS: Glucose,Whole Blood 216 mg/dL (75-99)
[2020-11-12] MEDS: ALBUTEROL HFA INHALER INHALATION SCH ×3 (08:17→15:36)
[2020-11-12] MEDS: SYMBICORT 160-4.5 MCG INHALER INHALATION SCH (08:18)
[2020-11-12] MEDS: TIOTROPIUM 18 MCG/PUFF INHALER INHALATION SCH (08:18)
[2020-11-12] MEDS: ZINC SULFATE 220 MG CAP PO SCH (09:00)
[2020-11-12] MEDS: ASCORBIC ACID 500 MG TAB PO SCH (09:00)
[2020-11-12] MEDS: LORATADINE 10 MG TAB PO SCH (09:00)
[2020-11-12] MEDS: METOPROLOL TARTRATE 25 MG TAB PO SCH (09:01)
[2020-11-12] MEDS: FUROSEMIDE 40 MG TAB PO SCH (09:02)
[2020-11-12] MEDS: amLODIPine 5 MG TAB PO SCH (09:02)
[2020-11-12] MEDS: PANTOPRAZOLE 40 MG TABLET PO SCH (09:02)
[2020-11-12] MEDS: FLUTICASONE 50MCG/SPRAY NASAL 16GM EA NOSTRIL SCH (09:02)
--- NOTE | 2020-11-12 09:06 | P.PN ---
Subjective Progress Note Date: 11/12/20 Principal diagnosis: COPD dyspnea Cough Covid 19 infection 75-year-old male was transferred from shelter facility due to the fact that the shelter facility staff was concerned with the patient's acute change of mental status/generalized weakness/dyspnea/generalized malaise. Patient had extensive diagnostic workup in the emergency department revealing acute delirium possibly related to to underlying medical conditions .on examination today the patient appears mild dyspneic, mild tachypneic, and scattered wheezes during exam. Patient complaint of cough without production. Patient complaint of dyspnea with movement. Patient denies fever, chills, chest pain or discomfort..PATIENT ABLE TO ANSWER QUESTIONS WITH FEW WORD SENTENCES APPROPRIATE TO PERSON PLACE AND TIME NOT CURRENTLY APPROPRIATE TO SITUATION. Awaiting recommendations from pulmonary critical care Objective - Vital Signs Vital signs: Vital Signs Temp 98.6 F 11/12/20 05:00 Pulse 89 11/12/20 05:00 Resp 17 11/12/20 05:00 BP 114/74 11/12/20 05:00 Pulse Ox 95 11/12/20 05:00 Intake & Output 11/11/20 11/12/20 11/12/20 18:59 06:59 18:59 Intake Total 200 Balance 200 Intake: Oral 200 Other: Voiding Method Diaper Diaper Diaper Incontinent Incontinent Incontinent # Voids 3 - Constitutional General appearance: Present: mild distress - EENT Eyes: Present: PERRLA Ears: left: normal - Respiratory Respiratory: bilateral: wheezing (Throughout lung cevallos) - Cardiovascular Rhythm: regular Heart sounds: normal: S1, S2 - Peripheral pulses radial pulse Peripheral Pulses: bilateral: Normal - Gastrointestinal General gastrointestinal: Present: normal bowel sounds - Integumentary Integumentary: Present: decreased turgor - Musculoskeletal Musculoskeletal: Present: generalized weakness - Psychiatric Psychiatric Comment(s): Alert to person and place disorientation to time and situation - Allied health notes Allied health notes reviewed: nursing - Labs CBC & Chem 7: 11/12/20 06:06 11/12/20 06:06 Labs: Abnormal Lab Results - Last 24 Hours (Table) 11/11/20 11/11/20 11/11/20 Range/Units 06:40 06:40 06:40 Lymphocytes # 0.5 L (1.0-4.8) k/uL PT 28.5 H (9.9-11.9) sec INR 2.85 H (0.90-1.11) Sodium 134 L (137-145) mmol/L Potassium (3.5-5.1) mmol/L Chloride 95 L (98-107) mmol/L Carbon Dioxide 35 H (22-30) mmol/L BUN 24 H (9-20) mg/dL Glucose 202 H (74-99) mg/dL POC Glucose (mg/dL) (75-99) mg/dL Calcium 8.0 L (8.4-10.2) mg/dL ALT 60 H (4-49) U/L Total Protein 5.5 L (6.3-8.2) g/dL Albumin 2.9 L (3.5-5.0) g/dL 11/11/20 11/11/20 11/11/20 Range/Units 11:16 17:14 20:28 Lymphocytes # (1.0-4.8) k/uL PT (9.9-11.9) sec INR (0.90-1.11) Sodium (137-145) mmol/L Potassium (3.5-5.1) mmol/L Chloride (98-107) mmol/L Carbon Dioxide (22-30) mmol/L BUN (9-20) mg/dL Glucose (74-99) mg/dL POC Glucose (mg/dL) 339 H 249 H 245 H (75-99) mg/dL Calcium (8.4-10.2) mg/dL ALT (4-49) U/L Total Protein (6.3-8.2) g/dL Albumin (3.5-5.0) g/dL 11/12/20 11/12/20 11/12/20 Range/Units 06:06 06:06 06:06 Lymphocytes # 0.4 L (1.0-4.8) k/uL PT 36.8 H (9.9-11.9) sec INR 3.7 H (0.90-1.11) Sodium (137-145) mmol/L Potassium 3.4 L (3.5-5.1) mmol/L Chloride 96 L (98-107) mmol/L Carbon Dioxide 38 H (22-30) mmol/L BUN 29 H (9-20) mg/dL Glucose 246 H (74-99) mg/dL POC Glucose (mg/dL) (75-99) mg/dL Calcium 7.9 L (8.4-10.2) mg/dL ALT (4-49) U/L Total Protein 5.2 L (6.3-8.2) g/dL Albumin 2.8 L (3.5-5.0) g/dL 11/12/20 Range/Units 07:06 Lymphocytes # (1.0-4.8) k/uL PT (9.9-11.9) sec INR (0.90-1.11) Sodium (137-145) mmol/L Potassium (3.5-5.1) mmol/L Chloride (98-107) mmol/L Carbon Dioxide (22-30) mmol/L BUN (9-20) mg/dL Glucose (74-99) mg/dL POC Glucose (mg/dL) 216 H (75-99) mg/dL Calcium (8.4-10.2) mg/dL ALT (4-49) U/L Total Protein (6.3-8.2) g/dL Albumin (3.5-5.0) g/dL Assessment and Plan Assessment: Acute deliriumpossibly due to medical condition History of asthma History of coronary artery disease History of heart failure diastolic COPD Dementia History of DVTs Hyperlipidemia Hypertension History of pulmonary embolism Sleep apnea (1) Delirium due to general medical condition Current Visit: Yes Status: Acute Code(s): F05 - DELIRIUM DUE TO KNOWN PHYSIOLOGICAL CONDITION SNOMED Code(s): 3026815 Plan: Acute deliriumpossibly due to medical condition covid- 19 infectiondiagnosed 10/23/2020continue consultation with pulmonary critical care Continue consultation with pulmonary critical care for recommendations of COPD Continue home medications Continue medical management Time with Patient: Greater than 30
[2020-11-12 11:22] LABS: Glucose,Whole Blood 300 mg/dL (75-99)
[2020-11-12 11:36] VITALS: BP 116/78; PULSE 68; RESP 18; TEMP 97.9
--- NOTE | 2020-11-12 14:40 | P.PN ---
Subjective Progress Note Date: 11/12/20 Principal diagnosis: Acute on chronic hypoxic respiratory failure secondary to CoVID 19 pneumonitis The patient is seen today 11/12/2020 in follow-up on the regular medical floor. He is currently sitting up at the bedside. Having lunch. Awake and alert in no acute distress. Maintaining good O2 saturations in the mid 90s on 4 L/m per nasal cannula. He is afebrile. Hemodynamically stable. Blood and urine cultures revealed no growth. White count 7.4. Hemoglobin 14.4. INR 3.7. Sodium 137. Potassium 3.4. Creatinine 0.89. He is maintained on Symbicort, Spiriva, albuterol. IV Solu-Medrol. Anticoagulated with warfarin. Objective - Vital Signs Vital signs: Vital Signs Temp 97.9 F 11/12/20 11:00 Pulse 68 11/12/20 11:00 Resp 18 11/12/20 11:00 BP 116/78 11/12/20 11:00 Pulse Ox 96 11/12/20 11:00 Intake & Output 11/11/20 11/12/20 11/12/20 18:59 06:59 18:59 Intake Total 200 Balance 200 Intake: Oral 200 Other: Voiding Method Diaper Diaper Diaper Incontinent Incontinent Incontinent # Voids 3 - Exam GENERAL EXAM: Alert, 75-year-old male patient, on 4 L of oxygen with pulse ox of 96%, up in a chair at the bedside, comfortable in no apparent distress. HEAD: Normocephalic/atraumatic. EYES: Normal reaction of pupils, equal size. Conjunctiva pink, sclera white. NOSE: Clear with pink turbinates. THROAT: No erythema or exudates. NECK: No masses, no JVD, no thyroid enlargement, no adenopathy. CHEST: No chest wall deformity. Symmetrical expansion. LUNGS: Equal air entry with coarse bibasilar crackles, but no wheeze, rhonchi or dullness. CVS: Regular rate and rhythm, normal S1 and S2, no gallops, no murmurs, no rubs ABDOMEN: Soft, nontender. No hepatosplenomegaly, normal bowel sounds, no g uarding or rigidity. EXTREMITIES: No clubbing, no edema, no cyanosis, 2+ pulses and upper and lower extremities. MUSCULOSKELETAL: Muscle strength and tone normal. SPINE: No scoliosis or deformity SKIN: No rashes CENTRAL NERVOUS SYSTEM: No focal deficits, tone is normal in all 4 extremities. PSYCHIATRIC: Alert and oriented -3. Appropriate affect. - Labs CBC & Chem 7: 11/12/20 06:06 11/12/20 06:06 Labs: Abnormal Lab Results - Last 24 Hours (Table) 11/11/20 11/11/20 11/12/20 Range/Units 17:14 20:28 06:06 Lymphocytes # 0.4 L (1.0-4.8) k/uL PT (9.0-12.0) sec INR (<1.2) Potassium (3.5-5.1) mmol/L Chloride (98-107) mmol/L Carbon Dioxide (22-30) mmol/L BUN (9-20) mg/dL Glucose (74-99) mg/dL POC Glucose (mg/dL) 249 H 245 H (75-99) mg/dL Calcium (8.4-10.2) mg/dL Total Protein (6.3-8.2) g/dL Albumin (3.5-5.0) g/dL 11/12/20 11/12/20 11/12/20 Range/Units 06:06 06:06 07:06 Lymphocytes # (1.0-4.8) k/uL PT 36.8 H (9.0-12.0) sec INR 3.7 H (<1.2) Potassium 3.4 L (3.5-5.1) mmol/L Chloride 96 L (98-107) mmol/L Carbon Dioxide 38 H (22-30) mmol/L BUN 29 H (9-20) mg/dL Glucose 246 H (74-99) mg/dL POC Glucose (mg/dL) 216 H (75-99) mg/dL Calcium 7.9 L (8.4-10.2) mg/dL Total Protein 5.2 L (6.3-8.2) g/dL Albumin 2.8 L (3.5-5.0) g/dL 11/12/20 Range/Units 11:20 Lymphocytes # (1.0-4.8) k/uL PT (9.0-12.0) sec INR (<1.2) Potassium (3.5-5.1) mmol/L Chloride (98-107) mmol/L Carbon Dioxide (22-30) mmol/L BUN (9-20) mg/dL Glucose (74-99) mg/dL POC Glucose (mg/dL) 300 H (75-99) mg/dL Calcium (8.4-10.2) mg/dL Total Protein (6.3-8.2) g/dL Albumin (3.5-5.0) g/dL Assessment and Plan Assessment: #1. Acute on chronic hypoxic respiratory failure multifactorial, partly related to Covid 19 infection. Urine culture negative Superimposed pneumonia is doubtful. Pro-calcitonin level is nonelevated. #2. Recent COVID 19 infection on 10/23/2020, CTA chest showed grossly clear lungs, and the possibility of recanalized left lower lobe pulmonary embolus or chronic emboli in the left lower lobe, and patient is on chronic anticoagulation in the form of warfarin for history of pulmonary embolisms, anticoagulated with warfarin #3. Recent hospitalization for acute COPD exacerbation, acute exacerbation of diastolic CHF #4. Coronary artery disease #5. COPD, moderately severe with baseline FEV1 of 55% of predicted, and patient whom ex-smoker, does have a [id number]-szzy smoking history, in remission for the last year #6. History of obstructive sleep apnea on CPAP #7. Hypertension #8. Hyperlipidemia #9. History of pulmonary embolism on Coumadin, INR was subtherapeutic on presentation #10. Previous history of urinary tract infections #11. Morbid obesity #12. Currently not ambulatory, going to rehab at the [facility] on [facility] #13. Altered mental status, brain CT showed no acute findings, possibly related to acute metabolic encephalopathy #14. Bipolar disorder #15. Chronic back pain Plan The patient was seen and evaluated by Dr. Hunt He is currently stable from the pulmonary standpoint Plan is for transfer to [facility] for ongoing rehabilitation We'll continue to follow I, the cosigning physician, performed a history & physical examination of the patient. Lungs sounds with bibasilar crackles. Maintaining good O2 saturations in the 90s on 4 L/m per nasal cannula. I discussed the assessment and plan of care with my nurse practitioner, Nara Gregory. I attest to the above note as dic tated by her.
--- NOTE | 2020-11-12 15:52 | P.DS ---
Providers Date of admission: 11/04/20 09:49 Expected date of discharge: 11/12/20 Attending physician: Alvin Mott Consults: 11/04/20 06:58 Consult Physician Urgent Consulting Provider: Alyssa Mar Consult Reason/Comments: copd, recent covid 19 Do you want consulting provider notified?: Yes Primary care physician: Alvin Mott - Discharge Diagnosis(es) (1) Delirium due to general medical condition 75-year-old male presented to the emergency room with urinalysis revealing urinary tract infection, chest x-ray possible infiltrate related to [id number] antibiotics administered .urine culture negative.blood culture negative. Awake and alert in no acute signs of distress Current Visit: Yes Status: Resolved Hospital Course: 75-year-old male who had recent hospitalization for acute exacerbation of COPD and acute exacerbation of CHF with diastolic dysfunction has an extensive medical history including morbid obesity, obstructive sleep apnea, on CPAP, COPD wears oxygen then needed, bipolar disorder,hyperlipidemia, BPH,previous urinary tract infections, history of former smoker history of pulmonary embolus on long-term anticoagulation with Coumadin she was [facility] department from [facility] due to altered mental statusinitial urinalysis revealed possible infection, initial chest x-ray revealed possible infiltrate related to pneumoniaempiric antibiotics were administered. Consultation with pulmonology regarding COPD and recent infection of covid-19, patient had negative tests of Covid 19 during hospital stay patient tolerated steroids for COPD and breathing treatments.patient to be transferred [facility] to [facility] for [facility]hab.patient awake and alert not baseline in no acute signs of distress Assessment: acute on chronic hypoxic respiratory failure multifactorial, partially related to covid-19 infection. Recent covid-19 infection on 10/23/2020, CTA chest showed grossly clear lungs and possibility of recanalization of left lower lobe pulmonary embolus or chronic emboli and left lower lobe-patient currently anticoagulated with warfarin therapy Recent hospitalization for acute COPD exacerbation, acute exacerbation of diastolic heart failure Coronary artery disease COPD History of obstructive sleep apnea on CPAP Hypertension Hyperlipidemia History of previous urinary tract infections Obesity bipolar disorder Health Concerns: compliance with medical treatment plan multiple comorbidities Pertinent Studies: CT of the head CT of the chest Serial chest x-rays Procedures: none performed Patient Condition at Discharge: Fair Plan - Discharge Summary Discharge Rx Participant: No New Discharge Prescriptions: New ALPRAZolam [Xanax] 0.25 mg PO HS PRN 3 Days #3 tab PRN Reason: Anxiety ALPRAZolam [Xanax] 0.25 mg PO HS PRN #3 tab PRN Reason: Anxiety Continue Atorvastatin [Lipitor] 40 mg PO HS Losartan [Cozaar] 25 mg PO HS Warfarin [Coumadin] 5 mg PO [id number] Levocetirizine Dihydrochloride [Xyzal] 5 mg PO DAILY Loperamide [Imodium] 2 mg PO DAILY PRN PRN Reason: Diarrhea Ipratropium [place] [Atrovent Hfa] 2 puff INHALATION RT-DAILY Fluticasone Nasal [place] [Flonase Nasal [place]] 2 spr EA NOSTRIL DAILY Albuterol Nebulized [Ventolin Nebulized] 2.5 mg INHALATION RT-QID@,,, Metoprolol Tartrate [Lopressor] 12.5 mg PO DAILY Furosemide [Lasix] 40 mg PO BID #60 tablet amLODIPine [Norvasc] 5 mg PO DAILY tab Omeprazole 20 mg PO BID Ascorbic Acid [Vitamin C] 500 mg PO DAILY Zinc 50 mg PO DAILY predniSONE See Taper PO DIRECTED Discontinued ALPRAZolam [Xanax] 0.25 mg PO HS PRN 3 Days #3 tab PRN Reason: Anxiety Warfarin [Coumadin] 5 mg PO ONCE Azithromycin [Zithromax] 250 mg PO DAILY Discharge Medication List Atorvastatin [Lipitor] 40 mg PO HS 09/12/20 [History] Levocetirizine Dihydrochloride [Xyzal] 5 mg PO DAILY 09/27/20 [History] Losartan [Cozaar] 25 mg PO HS 09/27/20 [History] Warfarin [Coumadin] 5 mg PO [id number] 09/27/20 [History] Albuterol Nebulized [Ventolin Nebulized] 2.5 mg INHALATION RT-QID@,12,16,20 10/16/20 [History] Fluticasone Nasal [place] [Flonase Nasal [place]] 2 spr EA NOSTRIL DAILY 10/16/20 [History] Ipratropium [place] [Atrovent Hfa] 2 puff INHALATION RT-DAILY 10/16/20 [History] Loperamide [Imodium] 2 mg PO DAILY PRN 10/16/20 [History] Metoprolol Tartrate [Lopressor] 12.5 mg PO DAILY 10/16/20 [History] Furosemide [Lasix] 40 mg PO BID #60 tablet 10/21/20 [Rx] amLODIPine [Norvasc] 5 mg PO DAILY tab 10/21/20 [Rx] Ascorbic Acid [Vitamin C] 500 mg PO DAILY 11/02/20 [History] Omeprazole 20 mg PO BID 11/02/20 [History] Zinc 50 mg PO DAILY 11/02/20 [History] predniSONE See Taper PO DIRECTED 11/02/20 [History] ALPRAZolam [Xanax] 0.25 mg PO HS PRN #3 tab 11/12/20 [Rx] ALPRAZolam [Xanax] 0.25 mg PO HS PRN 3 Days #3 tab 11/12/20 [Rx] Follow up Appointment(s)/Referral(s): Alvin Mott MD [Primary Care Provider] - 1-2 days Discharge Disposition: TRANSFER TO SNF/ECF
[2020-11-12] MEDS ORDERED: WARFARIN 0.5 MG TAB PO ONE (18:00)
== END 2020-11-12 17:40 | DRG 871 ==
LOC: EC 22:00 → 6NMEDSUR 11-03 01:40 → OBSVTOIN 11-04 09:49 → 4SSUR 11-04 18:43 → 6NMEDSUR 11-04 21:12
PROVIDERS: ADMIT Family Medicine; ATTEND Family Medicine
DX: A41.9 Sepsis, unspecified organism (principal); G93.41 Metabolic encephalopathy; J18.9 Pneumonia, unspecified organism; J96.21 Acute and chronic respiratory failure with hypoxia; U07.1 COVID-19; F05 Delirium due to known physiological condition; I27.82 Chronic pulmonary embolism; I50.32 Chronic diastolic (congestive) heart failure; J44.0 Chronic obstructive pulmonary disease with (acute) lower respiratory infection; J98.11 Atelectasis; N39.0 Urinary tract infection, site not specified; E66.01 Morbid (severe) obesity due to excess calories; E78.5 Hyperlipidemia, unspecified; F03.90 Unspecified dementia, unspecified severity, without behavioral disturbance, psychotic disturbance, mood disturbance, and anxiety; F31.9 Bipolar disorder, unspecified; G47.33 Obstructive sleep apnea (adult) (pediatric); G89.29 Other chronic pain; I11.0 Hypertensive heart disease with heart failure; I25.10 Atherosclerotic heart disease of native coronary artery without angina pectoris; I25.82 Chronic total occlusion of coronary artery; I49.3 Ventricular premature depolarization; N40.0 Benign prostatic hyperplasia without lower urinary tract symptoms; F41.9 Anxiety disorder, unspecified; K58.9 Irritable bowel syndrome, unspecified; R79.1 Abnormal coagulation profile; M54.9 Dorsalgia, unspecified; R32 Unspecified urinary incontinence; L98.8 Other specified disorders of the skin and subcutaneous tissue; R53.81 Other malaise; Z79.01 Long term (current) use of anticoagulants; Z79.899 Other long term (current) drug therapy; Z86.718 Personal history of other venous thrombosis and embolism; Z87.440 Personal history of urinary (tract) infections; Z87.891 Personal history of nicotine dependence; Z99.81 Dependence on supplemental oxygen; Z90.89 Acquired absence of other organs; Z87.898 Personal history of other specified conditions; Z98.890 Other specified postprocedural states
CPT/HCPCS: 36415; 36600; 51701; 70450; 71045; 71275; 80048; 80053; 80306; 81001; 82140; 82550; 82728; 82805; 83605; 83615; 83735; 83880; 84145; 84484; 85025; 85379; 85384; 85610; 85730; 86140; 87040; 87086; 87635; 93005; 94640; 94660; 96361; 96365; 96367; 96375; 99285

== ENCOUNTER 2020-11-25 20:09 | Inpatient (IN) | payer MEDICARE ==
--- NOTE | 2020-11-25 20:29 | ED ---
General Adult HPI - General Chief complaint: Neck Pain/Injury Stated complaint: Neck Pain, Possible TB Time Seen by Provider: 11/25/20 20:30 Source: EMS Mode of arrival: EMS Limitations: no limitations - History of Present Illness Initial comments: Patient is a 75-year-old male with multiple medical conditions who presents emergency department for multiple complaints. Patient was diagnosed with Covid at the end of October. He was hospitalized at [facility]. Patient states that he just returned home yesterday. Does not feel that it was appropriate for him to leave as he has not been ambulatory. Patient states he had a home care nurse with him today. She noted that his oxygen was reading 88%. He normally wears 4 L. He reports that his breathing has been worse today for him. He has had a productive cough. No fevers or chills. He also admits to neck pain. Denies any recent falls. Denies any numbness, tingling or weakness in his extremities. He denies any sick contacts. Denies any abdominal pain. Reports a good appetite. States he can't walk as he has been bedridden for so long. No other alleviating, precipitating or modifying factors - Related Data Home Medications Medication Instructions Recorded Confirmed Atorvastatin [Lipitor] 40 mg PO HS 09/12/20 11/25/20 Levocetirizine Dihydrochloride 5 mg PO DAILY 09/27/20 11/25/20 [Xyzal] Losartan [Cozaar] 25 mg PO HS 09/27/20 11/25/20 Warfarin [Coumadin] 5 mg PO MOTUWEFRSA@2100 09/27/20 11/25/20 Albuterol Nebulized [Ventolin 2.5 mg INHALATION 10/16/20 11/25/20 Nebulized] RT-QID@08,12,16,20 Fluticasone Nasal [place] [Flonase 2 spr EA NOSTRIL DAILY 10/16/20 11/25/20 Nasal [place]] Ipratropium [place] [Atrovent Hfa] 2 puff INHALATION RT-DAILY 10/16/20 11/25/20 Loperamide [Imodium] 2 mg PO DAILY PRN 10/16/20 11/25/20 Metoprolol Tartrate [Lopressor] 12.5 mg PO DAILY 10/16/20 11/25/20 Ascorbic Acid [Vitamin C] 500 mg PO DAILY 11/02/20 11/25/20 Omeprazole 20 mg PO BID 11/02/20 11/25/20 Zinc 50 mg PO DAILY 11/02/20 11/25/20 Previous Rx's Medication Instructions Recorded Furosemide [Lasix] 40 mg PO BID #60 tablet 10/21/20 amLODIPine [Norvasc] 5 mg PO DAILY tab 10/21/20 ALPRAZolam [Xanax] 0.25 mg PO HS PRN 3 Days #3 tab 11/12/20 Allergies Allergy/AdvReac Type Severity Reaction Status Date / Time No Known Allergies Allergy Verified 11/25/20 22:16 Review of Systems ROS Statement: Those systems with pertinent positive or pertinent negative responses have been documented in the HPI. ROS Other: All systems not noted in ROS Statement are negative. Past Medical History Past Medical History: Asthma, Coronary Artery Disease (CAD), Heart Failure, COPD, Dementia, Deep Vein Thrombosis (DVT), Hyperlipidemia, Hypertension, Memory Impairment, Pulmonary Embolus (PE), Respiratory Disorder, Sleep Apnea/CPAP/BIPAP Additional Past Medical History / Comment(s): Pt diagnosed with covid 10/23/20 at [facility]. Pt recently admitted to [facility] on 10/16/20 with acute exacerbation COPD/exacerbation CHF/acute on chronic hypoxic respiratory failure/UTI. Other hx: Cognitively delayed, CAD/triple vessel disease-recently seen by Dr. Mcdonough and ana rosa stated they next need to be seen by Dr. Mar, DIETER with Cpap , wears O2 at 2L/ATC now, colitis, IBS, UTIs, muscle weakness, [facility] states pt is currently nonambulatory. History of Any Multi-Drug Resistant Organisms: None Reported Past Surgical History: Adenoidectomy, Heart Catheterization, Orthopedic Surgery, Prostate Surgery, Tonsillectomy Additional Past Surgical History / Comment(s): 08/2020 cardiac cath, TURP, vasectomy, colonoscopy, L wrist surgery, L thumb tendon surgery Past Anesthesia/Blood Transfusion Reactions: No Reported Reaction Past Psychological History: Anxiety, Bipolar, Depression Smoking Status: Former smoker - Past Family History Mother Family Medical History: Cancer Additional Family Medical History / Comment(s): Mental health issues. Father Family Medical History: Cancer General Exam Limitations: no limitations General appearance: alert, in no apparent distress Head exam: Present: atraumatic Eye exam: Present: normal appearance, PERRL, EOMI. Absent: scleral icterus, conjunctival injection, periorbital swelling ENT exam: Present: mucous membranes dry Neck exam: Present: tenderness. Absent: meningismus Respiratory exam: Present: rales Cardiovascular Exam: Present: regular rate, normal rhythm, normal heart sounds. Absent: systolic murmur, diastolic murmur, rubs, gallop, clicks GI/Abdominal exam: Present: soft, normal bowel sounds. Absent: distended, tenderness, guarding, rebound, rigid Extremities exam: Present: other (4/5 strength b/l le with poor effort. ) Skin exam: Present: warm, dry, intact, normal color. Absent: rash Course Vital Signs 11/25/20 11/25/20 11/25/20 20:30 22:04 23:39 Temperature 98 F Pulse Rate 97 93 90 Respiratory 18 20 18 Rate Blood Pressure 118/61 110/82 116/86 O2 Sat by Pulse 97 95 96 Oximetry EKG Findings - EKG Comments: EKG Findings:: EKG demonstrates a sinus rhythm with frequent PVCs. Rate of 95. CO interval 160. QRS 76. QTC of 454. No acute ST segment elevations or depressions Medical Decision Making - Medical Decision Making Upon arrival patient was placed into room 4. History and physical was performed. That EKG was performed. Laboratory studies were conducted. Patient went for a chest x-rays he does have coarse breath sounds. CT of the patient's cervical spine was performed due to his reported neck pain. Laboratory studies are reviewed. Patient has a subtherapeutic INR 1.7. Lactic acid 2.2. Coronavirus is not detected. Chest x-ray does demonstrate worsening infiltrates. Patient was given Zosyn and Vanco. He does not meet sepsis criteria. CT of the patient's cervical spine demonstrates no fracture. Spondy litic changes with neural foraminal impingement at C6/7 which is unchanged. The patient was given a dose of pain medications. Did recommend hospitalization as the patient likely needs placement once again. Patient agreed to admission. Case is discussed with Alvin from [facility] who accepted admission. - Lab Data Result diagrams: 11/27/20 06:20 11/28/20 06:02 Lab Results 11/25/20 11/25/20 11/25/20 Range/Units 20:57 20:57 20:57 WBC 11.0 H (3.8-10.6) k/uL RBC 4.81 (4.30-5.90) m/uL Hgb 14.5 (13.0-17.5) gm/dL Hct 44.0 (39.0-53.0) % MCV 91.5 (80.0-100.0) fL MCH 30.2 (25.0-35.0) pg MCHC 33.0 (31.0-37.0) g/dL RDW 14.3 (11.5-15.5) % Plt Count 170 (150-450) k/uL MPV 8.1 Neutrophils % 85 % Lymphocytes % 9 % Monocytes % 4 % Eosinophils % 0 % Basophils % 0 % Neutrophils # 9.4 H (1.3-7.7) k/uL Lymphocytes # 1.0 (1.0-4.8) k/uL Monocytes # 0.5 (0-1.0) k/uL Eosinophils # 0.1 (0-0.7) k/uL Basophils # 0.0 (0-0.2) k/uL PT 16.4 H (9.0-12.0) sec INR 1.7 H (<1.2) APTT 31.4 H (22.0-30.0) sec Sodium 136 L (137-145) mmol/L Potassium 4.5 (3.5-5.1) mmol/L Chloride 99 (98-107) mmol/L Carbon Dioxide 32 H (22-30) mmol/L Anion Gap 5 mmol/L BUN 18 (9-20) mg/dL Creatinine 0.79 (0.66-1.25) mg/dL Est GFR (CKD-EPI)AfAm >90 (>60 ml/min/1.73 sqM) Est GFR (CKD-EPI)NonAf 87 (>60 ml/min/1.73 sqM) Glucose 120 H (74-99) mg/dL Lactic Ac Sepsis Rflx Plasma Lactic Acid Scooter (0.7-2.0) mmol/L Calcium 8.5 (8.4-10.2) mg/dL Total Bilirubin 1.0 (0.2-1.3) mg/dL AST 37 (17-59) U/L ALT 35 (4-49) U/L Alkaline Phosphatase 73 (38-126) U/L Troponin I (0.000-0.034) ng/mL NT-Pro-B Natriuret Pep pg/mL Total Protein 6.0 L (6.3-8.2) g/dL Albumin 3.0 L (3.5-5.0) g/dL 11/25/20 11/25/20 11/25/20 Range/Units 20:57 20:57 20:57 WBC (3.8-10.6) k/uL RBC (4.30-5.90) m/uL Hgb (13.0-17.5) gm/dL Hct (39.0-53.0) % MCV (80.0-100.0) fL MCH (25.0-35.0) pg MCHC (31.0-37.0) g/dL RDW (11.5-15.5) % Plt Count (150-450) k/uL MPV Neutrophils % % Lymphocytes % % Monocytes % % Eosinophils % % Basophils % % Neutrophils # (1.3-7.7) k/uL Lymphocytes # (1.0-4.8) k/uL Monocytes # (0-1.0) k/uL Eosinophils # (0-0.7) k/uL Basophils # (0-0.2) k/uL PT (9.0-12.0) sec INR (<1.2) APTT (22.0-30.0) sec Sodium (137-145) mmol/L Potassium (3.5-5.1) mmol/L Chloride (98-107) mmol/L Carbon Dioxide (22-30) mmol/L Anion Gap mmol/L BUN (9-20) mg/dL Creatinine (0.66-1.25) mg/dL Est GFR (CKD-EPI)AfAm (>60 ml/min/1.73 sqM) Est GFR (CKD-EPI)NonAf (>60 ml/min/1.73 sqM) Glucose (74-99) mg/dL Lactic Ac Sepsis Rflx Plasma Lactic Acid Scooter 2.2 H* (0.7-2.0) mmol/L Calcium (8.4-10.2) mg/dL Total Bilirubin (0.2-1.3) mg/dL AST (17-59) U/L ALT (4-49) U/L Alkaline Phosphatase (38-126) U/L Troponin I 0.012 (0.000-0.034) ng/mL NT-Pro-B Natriuret Pep 188 pg/mL Total Protein (6.3-8.2) g/dL Albumin (3.5-5.0) g/dL 11/25/20 Range/Units 21:24 WBC (3.8-10.6) k/uL RBC (4.30-5.90) m/uL Hgb (13.0-17.5) gm/dL Hct (39.0-53.0) % MCV (80.0-100.0) fL MCH (25.0-35.0) pg MCHC (31.0-37.0) g/dL RDW (11.5-15.5) % Plt Count (150-450) k/uL MPV Neutrophils % % Lymphocytes % % Monocytes % % Eosinophils % % Basophils % % Neutrophils # (1.3-7.7) k/uL Lymphocytes # (1.0-4.8) k/uL Monocytes # (0-1.0) k/uL Eosinophils # (0-0.7) k/uL Basophils # (0-0.2) k/uL PT (9.0-12.0) sec INR (<1.2) APTT (22.0-30.0) sec Sodium (137-145) mmol/L Potassium (3.5-5.1) mmol/L Chloride (98-107) mmol/L Carbon Dioxide (22-30) mmol/L Anion Gap mmol/L BUN (9-20) mg/dL Creatinine (0.66-1.25) mg/dL Est GFR (CKD-EPI)AfAm (>60 ml/min/1.73 sqM) Est GFR (CKD-EPI)NonAf (>60 ml/min/1.73 sqM) Glucose (74-99) mg/dL Lactic Ac Sepsis Rflx Y Plasma Lactic Acid Scooter (0.7-2.0) mmol/L Calcium (8.4-10.2) mg/dL Total Bilirubin (0.2-1.3) mg/dL AST (17-59) U/L ALT (4-49) U/L Alkaline Phosphatase (38-126) U/L Troponin I (0.000-0.034) ng/mL NT-Pro-B Natriuret Pep pg/mL Total Protein (6.3-8.2) g/dL Albumin (3.5-5.0) g/dL Disposition Clinical Impression: Pneumonia, Acute exacerbation of chronic obstructive pulmonary disease, Hypoxia, Neck pain Disposition: ADMITTED IP TO THIS HOSP Condition: Stable Is patient prescribed a controlled substance at d/c from ED?: No Decision to Admit Reason: Admit from EC Decision Date: 11/25/20 Decision Time: 22:38
[2020-11-25 21:06] LABS: Basophils % (A) 0 %; Eosinophils # (A) 0.1 k/uL (0-0.7); Eosinophils % (A) 0 %; HGB 14.5 gm/dL (13.0-17.5); Lymphocytes % (A) 9 %; MCH 30.2 pg (25.0-35.0); MCV 91.5 fL (80.0-100.0); Mean Platelet Volume 8.1; Monocytes # (A) 0.5 k/uL (0-1.0); Monocytes % (A) 4 %; Neutrophils # (A) 9.4 k/uL (1.3-7.7); Neutrophils % (A) 85 %; Platelet Count 170 k/uL (150-450); RBC 4.81 m/uL (4.30-5.90); RDW 14.3 % (11.5-15.5)
[2020-11-25 21:17] LABS: ALT 35 U/L (4-49); AST 37 U/L (17-59); African American GFR (CKD) >90 (>60 ml/min/1.73 sqM); Alkaline Phosphatase 73 U/L (38-126); Anion Gap 5 mmol/L; Blood Urea Nitrogen 18 mg/dL (9-20); Calcium 8.5 mg/dL (8.4-10.2); Carbon Dioxide 32 mmol/L (22-30); Chloride 99 mmol/L (98-107); Glucose 120 mg/dL (74-99); Non-African American GFR(CKD) 87 (>60 ml/min/1.73 sqM); Potassium 4.5 mmol/L (3.5-5.1); Sodium 136 mmol/L (137-145)
--- NOTE | 2020-11-25 21:42 | XR ---
EXAMINATION TYPE: XR chest 2V DATE OF EXAM: 11/25/2020 COMPARISON: July 12, 2020 HISTORY: 11/11/2020 TECHNIQUE: 2 views FINDINGS: There is patchy interstitial infiltrates in the mid and lower lung cevallos. Heart size is fa irly normal. There is no heart failure. There is no pleural effusion. There are chest leads. There ar e no hilar masses. IMPRESSION: Coarse interstitial infiltrates and subsegmental atelectasis are increased compared to ol d exam. No heart failure seen.
[2020-11-25 21:54] LABS: INR 1.7 (<1.2); Partial Thromboplastin Time 31.4 sec (22.0-30.0); Prothrombin Time 16.4 sec (9.0-12.0)
[2020-11-25] MEDS ORDERED: MORPHINE SULFATE 4 MG/ML SYRINGE IVP STA (22:26)
[2020-11-25] MEDS ORDERED: PIPERACILLIN-TAZOBACTAM 3.375 GM in SODIUM CHLORIDE 0.9% 100 ML IVPB STA (22:29)
[2020-11-25] MEDS ORDERED: VANCOMYCIN IV PER PHARMACY 1 EACH MISC MISCELLANE PRN (22:29)
[2020-11-25] MEDS ORDERED: VANCOMYCIN 2,000 MG in SODIUM CHLORIDE 0.9% 500 ML 500 ML IVPB STA (22:36)
[2020-11-25] MEDS ORDERED: NALOXONE 0.4 MG/ML 1 ML VIAL IV PRN (22:38)
--- NOTE | 2020-11-25 22:38 | CT ---
EXAMINATION TYPE: CT cervical spine wo con DATE OF EXAM: 11/25/2020 COMPARISON: 05/22/2020 HISTORY: c/o body aches. hx of covid. CT DLP: 544.4 mGycm Automated exposure control for dose reduction was used. Images were obtained from the skull base to T1 vertebra without contrast. Cervical vertebra have normal alignment. There is degenerative spurring of the endplates from C4 to T 1. The posterior elements are intact. There is some posterior soft tissue calcification from C5 to C7 consistent with old injury. The skull base is intact. There is no evidence for fracture. There is un covertebral spurring and C6-7 neural foraminal impingement. IMPRESSION: No fracture. Spondylotic changes with neural foraminal impingement at C6-7 unchanged. There is probab ly some spinal stenosis also at C6-7.
[2020-11-26] MEDS ORDERED: ALPRAZolam 0.25 MG TAB PO PRN (00:20)
[2020-11-26 06:32] LABS: Basophils % (A) 0 %; Eosinophils % (A) 1 %; HCT 37.2 % (39.0-53.0); HGB 12.6 gm/dL (13.0-17.5); Lymphocytes # (A) 1.1 k/uL (1.0-4.8); Lymphocytes % (A) 21 %; MCV 91.1 fL (80.0-100.0); Mean Platelet Volume 6.9; Monocytes # (A) 0.3 k/uL (0-1.0); Monocytes % (A) 6 %; Neutrophils # (A) 3.7 k/uL (1.3-7.7); Neutrophils % (A) 70 %; Platelet Count 131 k/uL (150-450); RBC 4.08 m/uL (4.30-5.90); WBC 5.2 k/uL (3.8-10.6)
[2020-11-26 06:44] LABS: African American GFR (CKD) >90 (>60 ml/min/1.73 sqM); Anion Gap 0 mmol/L; Blood Urea Nitrogen 16 mg/dL (9-20); Carbon Dioxide 36 mmol/L (22-30); Chloride 103 mmol/L (98-107); Glucose 97 mg/dL (74-99); Non-African American GFR(CKD) 89 (>60 ml/min/1.73 sqM); Potassium 3.4 mmol/L (3.5-5.1); Sodium 139 mmol/L (137-145)
[2020-11-26] MEDS: ALBUTEROL NEBULIZED 2.5 MG/3 ML INHALATION SCH ×4 (08:43→20:15)
[2020-11-26] MEDS ORDERED: NON FORMULARY DRUG (Zinc [Zinc] 50 MG Tablet) PO SCH (09:00)
[2020-11-26] MEDS: PANTOPRAZOLE 40 MG TABLET PO SCH (09:11)
[2020-11-26] MEDS: amLODIPine 5 MG TAB PO SCH (09:11)
[2020-11-26] MEDS: FUROSEMIDE 40 MG TAB PO SCH ×2 (09:11→20:52)
[2020-11-26] MEDS: LORATADINE 10 MG TAB PO SCH (09:11)
[2020-11-26] MEDS: ASCORBIC ACID 500 MG TAB PO SCH (09:12)
[2020-11-26] MEDS: METOPROLOL TARTRATE 25 MG TAB PO SCH (09:12)
[2020-11-26] MEDS: FLUTICASONE 50MCG/SPRAY NASAL 16GM EA NOSTRIL SCH (09:17)
[2020-11-26 09:49] LABS: INR 1.65 (0.90-1.11); Prothrombin Time 17.2 sec (9.9-11.9)
[2020-11-26] MEDS: VANCOMYCIN 2,000 MG in SODIUM CHLORIDE 0.9% 500 ML 500 ML IVPB SCH (12:06)
[2020-11-26] MEDS: POTASSIUM CHLORIDE ER 10 MEQ TAB.ER.PRT PO SCH (12:06)
[2020-11-26 14:58] VITALS: BMI 38.0
[2020-11-26] MEDS ORDERED: WARFARIN 3 MG TAB PO ONE (18:00)
[2020-11-26] MEDS: LOSARTAN 25 MG TAB PO SCH (20:52)
[2020-11-26] MEDS: ATORVASTATIN 40 MG TAB PO SCH (20:52)
--- NOTE | 2020-11-26 23:18 | P.HPIM ---
History of Present Illness H&P Date: 11/26/20 Chief Complaint: HARSHIL Patient is a 75-year-old male with a known history of recently diagnosed COVID- 19 pneumonia on 10/23/2020 and a recent admission at [address] [place] [address], hypertension, hyperlipidemia, history of DVT, chronic CHF, coronary artery disease and obstructive sleep apnea, chronic hypoxic respiratory failure on oxygen at home at 2 L via nasal cannula who was sent to rehab recently and a return home yesterday from [facility]. Patient had home care nurse to visit him today and his pulse ox was found to be 88%. Patient is on 4 L oxygen recently and stated that his breathing has been worse. Patient did have a cough with productive sputum and no fever no chills. Denied any chest pain. No headache or dizziness. No numbness or tingling. Denied any nausea vomiting or abdominal pain or diarrhea. Patient felt more weak and unable to ambulate. Chest x-ray showed coarse interstitial infiltrates and subsegmental atelectasis are increased compared to old exam. CT cervical spine showed no fracture. Spondylotic changes with neural foraminal impingement at C6-7 unchanged. There is possibly some spinal stenosis at C6-C7 EKG showed sinus rhythm with frequent PVCs. Laboratory data showed WBC 11.0, hemoglobin 15.5 and platelets 170 INR 1.7 Sodium 136, potassium 4.5, bicarb is 32 and BUN 18 creatinine 0.79 and lactic acid 2.2 on admission NT proBNP is 188 and COVID-19 PCR is not detected. Review of Systems Constitutional: Patient denies any fever or chills . + generalized weakness . no weight loss. Abdomen: Patient denied nausea vomiting and diarrhea and abdominal pain. Cardiovascular: Patient denies any chest pain or short of breath no palpitations. Respiratory: Patient does have worsening shortness of breath and cough with sputum production. Neurologic: Patient denied any numbness or tingling headache. Musculoskeletal: Patient denies any complaints of joint swelling or deformity. Skin: Negative Psychiatric: Negative Endocrine: No heat or cold intolerance. No recent weight gain. Genitourinary: No dysuria or hematuria. All other 14 point ROS negative except the above Past Medical History Past Medical History: Asthma, Coronary Artery Disease (CAD), Heart Failure, COPD, Dementia, Deep Vein Thrombosis (DVT), Hyperlipidemia, Hypertension, Memory Impairment, Pulmonary Embolus (PE), Respiratory Disorder, Sleep Apnea/CPAP/BIPAP Additional Past Medical History / Comment(s): Pt diagnosed with covid 10/23/20 at [facility]. Pt recently admitted to [facility] on 10/16/20 with acute exacerbation COPD/exacerbation CHF/acute on chronic hypoxic respiratory failure/UTI. Other hx: Cognitively delayed, CAD/triple vessel disease-recently seen by Dr. Mcdonough and anna stated they next need to be seen by Dr. Mar, DIETER with Cpap, wears O2 at 2L/ATC now, colitis, IBS, UTIs, muscle weakness, [facility] states pt is currently nonambulatory. History of Any Multi-Drug Resistant Organisms: None Reported Past Surgical History: Adenoidectomy, Heart Catheterization, Orthopedic Surgery, Prostate Surgery, Tonsillectomy Additional Past Surgical History / Comment(s): 08/2020 cardiac cath, TURP, vasectomy, colonoscopy, L wrist surgery, L thumb tendon surgery Past Anesthesia/Blood Transfusion Reactions: No Reported Reaction Past Psychological History: Anxiety, Bipolar, Depression Additional Psychological History / Comment(s): Pt residing at [facility]. He is nonambulatory and using oxygen ATC. Smoking Status: Former smoker Past Alcohol Use History: None Reported Additional Past Alcohol Use History / Comment(s): Pt started smoking in 1957 and quit in 2019. Anna states pt has never been a heavy drinker, drank socially in the past. Past Drug Use History: None Reported - Past Family History Mother Family Medical History: Cancer Additional Family Medical History / Comment(s): Mental health issues. Father Family Medical History: Cancer Medications and Allergies Home Medications Medication Instructions Recorded Confirmed Type Atorvastatin [Lipitor] 40 mg PO HS 09/12/20 11/25/20 History Levocetirizine Dihydrochloride 5 mg PO DAILY 09/27/20 11/25/20 History [Xyzal] Losartan [Cozaar] 25 mg PO HS 09/27/20 11/25/20 History Warfarin [Coumadin] 5 mg PO MOTUWEFRSA@2100 09/27/20 11/25/20 History Albuterol Nebulized [Ventolin 2.5 mg INHALATION 10/16/20 11/25/20 History Nebulized] RT-QID@08,12,16,20 Fluticasone Nasal [place] [Flonase 2 spr EA NOSTRIL DAILY 10/16/20 11/25/20 History Nasal [place]] Ipratropium [place] [Atrovent Hfa] 2 puff INHALATION RT-DAILY 10/16/20 11/25/20 History Loperamide [Imodium] 2 mg PO DAILY PRN 10/16/20 11/25/20 History Metoprolol Tartrate [Lopressor] 12.5 mg PO DAILY 10/16/20 11/25/20 History Furosemide [Lasix] 40 mg PO BID #60 tablet 10/21/20 11/25/20 Rx amLODIPine [Norvasc] 5 mg PO DAILY tab 10/21/20 11/25/20 Rx Ascorbic Acid [Vitamin C] 500 mg PO DAILY 11/02/20 11/25/20 History Omeprazole 20 mg PO BID 11/02/20 11/25/20 History Zinc 50 mg PO DAILY 11/02/20 11/25/20 History ALPRAZolam [Xanax] 0.25 mg PO HS PRN 3 Days #3 tab 11/12/20 11/25/20 Rx Allergies Allergy/AdvReac Type Severity Reaction Status Date / Time No Known Allergies Allergy Verified 11/25/20 22:16 Physical Exam Vitals: Vital Signs Temp Pulse Pulse Pulse Resp BP BP 11/26/20 12:00 76 11/26/20 11:51 74 11/26/20 08:53 82 11/26/20 08:46 76 11/26/20 07:15 98.0 F 77 18 115/74 11/26/20 01:00 18 11/26/20 00:53 98.3 F 63 17 109/73 11/25/20 23:39 90 18 116/86 11/25/20 22:04 93 20 110/82 11/25/20 20:30 98 F 97 18 118/61 Pulse Ox 11/26/20 12:00 11/26/20 11:51 11/26/20 08:53 11/26/20 08:46 11/26/20 07:15 95 11/26/20 01:00 11/26/20 00:53 95 11/25/20 23:39 96 11/25/20 22:04 95 11/25/20 20:30 97 Intake and Output 11/25/20 11/26/20 11/26/20 22:59 06:59 14:59 Output Total 75 Balance -75 Output: Urine 75 Other: Voiding Method Diaper Diaper External Catheter External Catheter Weight 127.006 kg 127.006 kg PHYSICAL EXAMINATION: Patient is lying in the bed comfortably, mild distress, awake alert and oriented.. HEENT: Normocephalic. Neck is supple. Pupils reactive. Nostrils clear. Oral cavity is moist. Ears reveal no drainage. Neck reveals no JVD, carotid bruits, or thyromegaly. CHEST EXAMINATION: Trachea is central. Symmetrical expansion.Bilateral coarse breath sounds. Bibasilar diminished air entry. CARDIAC: Normal S1, S2 with no gallops. No murmurs ABDOMEN: Soft. Bowel sounds normal. No organomegaly. No abdominal bruits. Extremities: reveal no edema. No clubbing or cyanosis Neurologically awake, alert, oriented x3 with well-coordinated movements. No focal deficits noted Skin: No rash or skin lesions. Psychiatric: Coperative. Nonsuicidal Musculoskeletal: No joint swelling or deformity. Normal range of motion. Results CBC & Chem 7: 11/26/20 06:03 11/26/20 06:03 Labs: Abnormal Lab Results - Last 24 Hours (Table) 11/25/20 11/25/20 11/25/20 Range/Units 20:57 20:57 20:57 WBC 11.0 H (3.8-10.6) k/uL RBC (4.30-5.90) m/uL Hgb (13.0-17.5) gm/dL Hct (39.0-53.0) % Plt Count (150-450) k/uL Neutrophils # 9.4 H (1.3-7.7) k/uL PT 16.4 H (9.0-12.0) sec INR 1.7 H (<1.2) APTT 31.4 H (22.0-30.0) sec Sodium 136 L (137-145) mmol/L Potassium (3.5-5.1) mmol/L Carbon Dioxide 32 H (22-30) mmol/L Glucose 120 H (74-99) mg/dL Plasma Lactic Acid Scooter (0.7-2.0) mmol/L Calcium (8.4-10.2) mg/dL Total Protein 6.0 L (6.3-8.2) g/dL Albumin 3.0 L (3.5-5.0) g/dL 11/25/20 11/26/20 11/26/20 Range/Units 20:57 06:03 06:03 WBC (3.8-10.6) k/uL RBC 4.08 L (4.30-5.90) m/uL Hgb 12.6 L (13.0-17.5) gm/dL Hct 37.2 L (39.0-53.0) % Plt Count 131 L (150-450) k/uL Neutrophils # (1.3-7.7) k/uL PT (9.0-12.0) sec INR (<1.2) APTT (22.0-30.0) sec Sodium (137-145) mmol/L Potassium 3.4 L (3.5-5.1) mmol/L Carbon Dioxide 36 H (22-30) mmol/L Glucose (74-99) mg/dL Plasma Lactic Acid Scooter 2.2 H* (0.7-2.0) mmol/L Calcium 8.0 L (8.4-10.2) mg/dL Total Protein (6.3-8.2) g/dL Albumin (3.5-5.0) g/dL 11/26/20 Range/Units 06:03 WBC (3.8-10.6) k/uL RBC (4.30-5.90) m/uL Hgb (13.0-17.5) gm/dL Hct (39.0-53.0) % Plt Count (150-450) k/uL Neutrophils # (1.3-7.7) k/uL PT 17.2 H (9.0-12.0) sec INR 1.65 H (<1.2) APTT (22.0-30.0) sec Sodium (137-145) mmol/L Potassium (3.5-5.1) mmol/L Carbon Dioxide (22-30) mmol/L Glucose (74-99) mg/dL Plasma Lactic Acid Scooter (0.7-2.0) mmol/L Calcium (8.4-10.2) mg/dL Total Protein (6.3-8.2) g/dL Albumin (3.5-5.0) g/dL Thrombosis Risk Factor Assmnt - DVT/VTE Prophylaxis DVT/VTE Prophylaxis: Pharmacologic Prophylaxis ordered Assessment and Plan Assessment: Acute on chronic hypoxic respiratory failure secondary to pneumonia and recent COVID-19 infection Possible underlying bacterial pneumonia Chronic hypoxic respiratory failure secondary to COPD History of DVT/PE currently on Coumadin anticoagulation Hypertension controlled Coronary artery disease status post coronary artery bypass grafting triple- vessel Obstructive sleep apnea on CPAP at home Chronic CHF likely diastolic. Not in exacerbation. Dementia/memory impairment Anxiety/depression/bipolar disorder Previous history of smoking DVT prophylaxis patient is already on Coumadin. Plan: Patient be continued on antibiotics in the form of vancomycin and was given a dose of Zosyn in the ER. Titrate down FiO2.Continued home medications and PT OT will be consulted. Prognosis guarded at this time. Further recommendations based on the clinical course. Time with Patient: Greater than 30
[2020-11-27] MEDS: VANCOMYCIN 2,000 MG in SODIUM CHLORIDE 0.9% 500 ML 500 ML IVPB SCH ×3 (01:11→22:53)
[2020-11-27 06:44] LABS: Basophils % (A) 0 %; Eosinophils # (A) 0.1 k/uL (0-0.7); Eosinophils % (A) 1 %; HCT 38.8 % (39.0-53.0); HGB 12.8 gm/dL (13.0-17.5); Lymphocytes % (A) 18 %; MCH 30.6 pg (25.0-35.0); MCHC 32.9 g/dL (31.0-37.0); MCV 93.2 fL (80.0-100.0); Mean Platelet Volume 6.7; Monocytes # (A) 0.3 k/uL (0-1.0); Monocytes % (A) 6 %; Neutrophils # (A) 3.9 k/uL (1.3-7.7); Neutrophils % (A) 72 %; Platelet Count 139 k/uL (150-450); RBC 4.17 m/uL (4.30-5.90); RDW 14.1 % (11.5-15.5); WBC 5.4 k/uL (3.8-10.6)
[2020-11-27] MEDS: ALBUTEROL NEBULIZED 2.5 MG/3 ML INHALATION SCH ×4 (07:03→21:24)
[2020-11-27] MEDS: IPRATROPIUM 0.5 MG/2.5 ML NEBU INHALATION SCH (07:09)
[2020-11-27 09:20] LABS: African American GFR (CKD) 99.9 (60.0-200.0); Anion Gap 8.2 mmol/L (4.00-12.00); Calcium 8.2 mg/dL (8.7-10.3); Carbon Dioxide 33.8 mmol/L (21.6-31.8); Non-African American GFR(CKD) 86.2 (60.0-200.0)
[2020-11-27] MEDS: ASCORBIC ACID 500 MG TAB PO SCH (09:21)
[2020-11-27] MEDS: METOPROLOL TARTRATE 25 MG TAB PO SCH (09:21)
[2020-11-27] MEDS: LORATADINE 10 MG TAB PO SCH (09:21)
[2020-11-27] MEDS: FUROSEMIDE 40 MG TAB PO SCH ×2 (09:22→20:27)
[2020-11-27] MEDS: FLUTICASONE 50MCG/SPRAY NASAL 16GM EA NOSTRIL SCH (09:22)
[2020-11-27] MEDS: PANTOPRAZOLE 40 MG TABLET PO SCH (09:22)
[2020-11-27] MEDS: amLODIPine 5 MG TAB PO SCH (09:22)
[2020-11-27 09:33] LABS: INR 1.89 (0.90-1.11); Prothrombin Time 19.5 sec (9.9-11.9)
[2020-11-27] MEDS ORDERED: WARFARIN 3 MG TAB PO ONE (18:00)
[2020-11-27] MEDS: ATORVASTATIN 40 MG TAB PO SCH (20:27)
[2020-11-27] MEDS: LOSARTAN 25 MG TAB PO SCH (20:27)
[2020-11-27] MEDS ORDERED: WARFARIN 5 MG TAB PO SCH (21:00)
[2020-11-28] MEDS: ALBUTEROL NEBULIZED 2.5 MG/3 ML INHALATION SCH (08:41)
[2020-11-28] MEDS: IPRATROPIUM 0.5 MG/2.5 ML NEBU INHALATION SCH ×2 (08:50→11:14)
[2020-11-28] MEDS: ALBUTEROL HFA INHALER INHALATION SCH ×4 (09:03→19:41)
[2020-11-28 09:19] LABS: INR 2.26 (0.90-1.11)
[2020-11-28 09:34] LABS: African American GFR (CKD) 112.4 (60.0-200.0)
[2020-11-28] MEDS ORDERED: VANCOMYCIN TROUGH DUE 1 EACH MISC MISCELLANE ONE (11:00)
[2020-11-28] MEDS: METOPROLOL TARTRATE 25 MG TAB PO SCH (11:09)
[2020-11-28] MEDS: amLODIPine 5 MG TAB PO SCH (11:09)
[2020-11-28] MEDS: FUROSEMIDE 40 MG TAB PO SCH ×2 (11:09→20:20)
[2020-11-28] MEDS: PANTOPRAZOLE 40 MG TABLET PO SCH (11:10)
[2020-11-28] MEDS: ASCORBIC ACID 500 MG TAB PO SCH (11:10)
[2020-11-28] MEDS: LORATADINE 10 MG TAB PO SCH (11:10)
[2020-11-28] MEDS: FLUTICASONE 50MCG/SPRAY NASAL 16GM EA NOSTRIL SCH (11:13)
[2020-11-28] MEDS: AZITHROMYCIN 500 MG TAB PO SCH (13:07)
[2020-11-28] MEDS ORDERED: WARFARIN 2.5 MG TAB PO ONE (18:00)
[2020-11-28] MEDS: LOSARTAN 25 MG TAB PO SCH (20:20)
[2020-11-28] MEDS: ATORVASTATIN 40 MG TAB PO SCH (20:20)
[2020-11-29 07:04] LABS: Glucose,Whole Blood 114 mg/dL (75-99)
[2020-11-29] MEDS: ASCORBIC ACID 500 MG TAB PO SCH (08:05)
[2020-11-29] MEDS: LORATADINE 10 MG TAB PO SCH (08:05)
[2020-11-29] MEDS: amLODIPine 5 MG TAB PO SCH (08:05)
[2020-11-29] MEDS: PANTOPRAZOLE 40 MG TABLET PO SCH (08:05)
[2020-11-29] MEDS: FUROSEMIDE 40 MG TAB PO SCH ×2 (08:05→20:15)
[2020-11-29] MEDS: AZITHROMYCIN 500 MG TAB PO SCH (08:05)
[2020-11-29] MEDS: METOPROLOL TARTRATE 25 MG TAB PO SCH (08:05)
[2020-11-29] MEDS: FLUTICASONE 50MCG/SPRAY NASAL 16GM EA NOSTRIL SCH (08:06)
[2020-11-29] MEDS: ALBUTEROL HFA INHALER INHALATION SCH ×4 (08:23→19:48)
[2020-11-29 10:03] LABS: African American GFR (CKD) 99.9 (60.0-200.0); Non-African American GFR(CKD) 86.2 (60.0-200.0)
[2020-11-29 10:07] LABS: INR 1.98 (0.90-1.11); Prothrombin Time 20.3 sec (9.9-11.9)
[2020-11-29] MEDS ORDERED: ACETAMINOPHEN TAB 325 MG TAB PO PRN (15:49)
[2020-11-29] MEDS ORDERED: WARFARIN 5 MG TAB PO ONE (18:00)
[2020-11-29] MEDS: LOSARTAN 25 MG TAB PO SCH (20:15)
[2020-11-29] MEDS: ATORVASTATIN 40 MG TAB PO SCH (20:15)
--- NOTE | 2020-11-29 23:22 | P.PN ---
Subjective Progress Note Date: 11/27/20 Principal diagnosis: Acute on chronic hypoxic respiratory failure secondary to pneumonia and recent COVID-19 infection Patient is a 75-year-old male with a known history of recently diagnosed COVID- 19 pneumonia on 10/23/2020 and a recent admission at [address] [place] [address], hypertension, hyperlipidemia, history of DVT, chronic CHF, coronary artery disease and obstructive sleep apnea, chronic hypoxic respiratory failure on oxygen at home at 2 L via nasal cannula who was sent to rehab recently and a return home yesterday from [facility]. Patient had home care nurse to visit him today and his pulse ox was found to be 88%. Patient is on 4 L oxygen recently and stated that his breathing has been worse. Patient did have a cough with productive sputum and no fever no chills. Denied any chest pain. No headache or dizziness. No numbness or tingling. Denied any nausea vomiting or abdominal pain or diarrhea. Patient felt more weak and unable to ambulate. Chest x-ray showed coarse interstitial infiltrates and subsegmental atelectasis are increased compared to old exam. CT cervical spine showed no fracture. Spondylotic changes with neural foraminal impingement at C6-7 unchanged. There is possibly some spinal stenosis at C6-C7 EKG showed sinus rhythm with frequent PVCs. Laboratory data showed WBC 11.0, hemoglobin 15.5 and platelets 170 INR 1.7 Sodium 136, potassium 4.5, bicarb is 32 and BUN 18 creatinine 0.79 and lactic acid 2.2 on admission NT proBNP is 188 and COVID-19 PCR is not detected. 11/27/2020 Patient is resting in a chair and still short of breath and puffing out air. No complaints of chest pain. No nausea vomiting or abdominal pain. Patient is being continued on breathing treatments and antibiotics in the form of vancomycin. Continued on oxygen supplementation. Patient has been afebrile. Laboratory test showed WBC 5.4, hemoglobin 12.8 and platelets 139 INR 1.89 BUN 12 and creatinine 0.8 Pro calcitonin level is 0.05 and bicarb is 33.8 Current medications reviewed. Objective - Vital Signs Vital signs: Vital Signs Temp 97.5 F L 11/27/20 17:16 Pulse 80 11/27/20 20:00 Resp 16 11/27/20 20:00 BP 114/67 11/27/20 17:16 Pulse Ox 96 11/27/20 17:16 Intake & Output 11/27/20 11/27/20 11/28/20 06:59 18:59 06:59 Intake Total 300 Output Total 1001 750 Balance -701 -750 Intake: Oral 300 Output: Urine 1000 750 Urine/Stool Mix 1 Other: Voiding Method Diaper Diaper Diaper External Catheter External Catheter External Catheter # Voids 1 - Exam PHYSICAL EXAMINATION: Patient is lying in the bed comfortably, mild distress, awake alert and oriented.. HEENT: Normocephalic. Neck is supple. Pupils reactive. Nostrils clear. Oral cavity is moist. Ears reveal no drainage. Neck reveals no JVD, carotid bruits, or thyromegaly. CHEST EXAMINATION: Trachea is central. Symmetrical expansion.Bilateral coarse breath sounds. Bibasilar diminished air entry. CARDIAC: Normal S1, S2 with no gallops. No murmurs ABDOMEN: Soft. Bowel sounds normal. No organomegaly. No abdominal bruits. Extremities: reveal no edema. No clubbing or cyanosis Neurologically awake, alert, oriented x3 with well-coordinated movements. No focal deficits noted Skin: No rash or skin lesions. Psychiatric: Coperative. Nonsuicidal Musculoskeletal: No joint swelling or deformity. Normal range of motion. - Labs CBC & Chem 7: 11/27/20 06:20 11/29/20 05:44 Labs: Abnormal Lab Results - Last 24 Hours (Table) 11/27/20 11/27/20 11/27/20 Range/Units 06:20 06:20 06:20 RBC 4.17 L (4.30-5.90) m/uL Hgb 12.8 L (13.0-17.5) gm/dL Hct 38.8 L (39.0-53.0) % Plt Count 139 L (150-450) k/uL PT 19.5 H (9.9-11.9) sec INR 1.89 H (0.90-1.11) Carbon Dioxide 33.8 H (21.6-31.8) mmol/L Glucose 112 H (70-110) mg/dL Calcium 8.2 L (8.7-10.3) mg/dL Microbiology - Last 24 Hours (Table) 11/25/20 23:07 Blood Culture - Preliminary Blood No Growth after 24 hours 11/25/20 23:07 Blood Culture - Preliminary Blood No Growth after 24 hours Assessment and Plan Assessment: Acute on chronic hypoxic respiratory failure secondary to pneumonia and recent COVID-19 infection Possible underlying bacterial pneumonia. unlikely. 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 Not in exacerbation. Dementia/memory impairment Anxiety/depression/bipolar disorder Previous history of smoking DVT prophylaxis patient is already on Coumadin. Plan: Patient be continued on O2 via NC. Titrate down FiO2. Continued home medications and PT OT will be consulted. Possible rehab, Prognosis guarded at this time. Further recommendations based on the clinical course. Time with Patient: Greater than 30
--- NOTE | 2020-11-29 23:34 | P.PN ---
Subjective Progress Note Date: 11/28/20 Principal diagnosis: Acute on chronic hypoxic respiratory failure secondary to pneumonia and recent COVID-19 infection Patient is a 75-year-old male with a known history of recently diagnosed COVID- 19 pneumonia on 10/23/2020 and a recent admission at [address] [place] [address], hypertension, hyperlipidemia, history of DVT, chronic CHF, coronary artery disease and obstructive sleep apnea, chronic hypoxic respiratory failure on oxygen at home at 2 L via nasal cannula who was sent to rehab recently and a return home yesterday from [facility]. Patient had home care nurse to visit him today and his pulse ox was found to be 88%. Patient is on 4 L oxygen recently and stated that his breathing has been worse. Patient did have a cough with productive sputum and no fever no chills. Denied any chest pain. No headache or dizziness. No numbness or tingling. Denied any nausea vomiting or abdominal pain or diarrhea. Patient felt more weak and unable to ambulate. Chest x-ray showed coarse interstitial infiltrates and subsegmental atelectasis are increased compared to old exam. CT cervical spine showed no fracture. Spondylotic changes with neural foraminal impingement at C6-7 unchanged. There is possibly some spinal stenosis at C6-C7 EKG showed sinus rhythm with frequent PVCs. Laboratory data showed WBC 11.0, hemoglobin 15.5 and platelets 170 INR 1.7 Sodium 136, potassium 4.5, bicarb is 32 and BUN 18 creatinine 0.79 and lactic acid 2.2 on admission NT proBNP is 188 and COVID-19 PCR is not detected. 11/27/2020 Patient is resting in a chair and still short of breath and puffing out air. No complaints of chest pain. No nausea vomiting or abdominal pain. Patient is being continued on breathing treatments and antibiotics in the form of vancomycin. Continued on oxygen supplementation. Patient has been afebrile. Laboratory test showed WBC 5.4, hemoglobin 12.8 and platelets 139 INR 1.89 BUN 12 and creatinine 0.8 Pro calcitonin level is 0.05 and bicarb is 33.8 11/28/2020 Patient is currently resting in the bed comfortably. Shortness of breath is improving. Currently on oxygen at 3 L via nasal cannula. Antibiotics have been discontinued. Patient has been afebrile. Continue PT OT. No complaints of chest pain. No nausea vomiting or abdominal pain or diarrhea. Patient is tolerating oral diet. Current medications reviewed. Objective - Vital Signs Vital signs: Vital Signs Temp 98.1 F 11/28/20 18:05 Pulse 83 11/28/20 18:05 Resp 20 11/28/20 18:05 BP 126/79 11/28/20 18:05 Pulse Ox 93 L 11/28/20 18:05 Intake & Output 11/28/20 11/28/20 11/29/20 06:59 18:59 06:59 Intake Total 200 Output Total 1000 825 Balance -800 -825 Intake: Oral 200 Output: Urine 1000 825 Other: Voiding Method Diaper External Catheter # Bowel Movements 1 1 - Exam PHYSICAL EXAMINATION: Patient is lying in the bed comfortably, mild distress, awake alert and oriented.. HEENT: Normocephalic. Neck is supple. Pupils reactive. Nostrils clear. Oral cavity is moist. Ears reveal no drainage. Neck reveals no JVD, carotid bruits, or thyromegaly. CHEST EXAMINATION: Trachea is central. Symmetrical expansion.Bilateral coarse breath sounds. Bibasilar diminished air entry. CARDIAC: Normal S1, S2 with no gallops. No murmurs ABDOMEN: Soft. Bowel sounds normal. No organomegaly. No abdominal bruits. Extremities: reveal no edema. No clubbing or cyanosis Neurologically awake, alert, oriented x3 with well-coordinated movements. No focal deficits noted Skin: No rash or skin lesions. Psychiatric: Coperative. Nonsuicidal Musculoskeletal: No joint swelling or deformity. Normal range of motion. - Labs CBC & Chem 7: 11/27/20 06:20 11/29/20 05:44 Labs: Abnormal Lab Results - Last 24 Hours (Table) 11/28/20 Range/Units 06:02 PT 23.0 H (9.9-11.9) sec INR 2.26 H (0.90-1.11) Microbiology - Last 24 Hours (Table) 11/25/20 23:07 Blood Culture - Preliminary Blood No Growth after 48 hours 11/25/20 23:07 Blood Culture - Preliminary Blood No Growth after 48 hours Assessment and Plan Assessment: Acute on chronic hypoxic respiratory failure secondary to pneumonia and recent COVID-19 infection Possible underlying bacterial pneumonia. unlikely. 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 Not in exacerbation. Dementia/memory impairment Anxiety/depression/bipolar disorder Previous history of smoking DVT prophylaxis patient is already on Coumadin. Plan: Patient be continued on O2 via NC. Titrate down FiO2. Continued home medications and PT OT will be consulted. Possible rehab, Prognosis guarded at this time. Further recommendations based on the clinical course. Time with Patient: Greater than 30
--- NOTE | 2020-11-29 23:36 | P.PN ---
Subjective Progress Note Date: 11/29/20 Principal diagnosis: Acute on chronic hypoxic respiratory failure secondary to pneumonia and recent COVID-19 infection Patient is a 75-year-old male with a known history of recently diagnosed COVID- 19 pneumonia on 10/23/2020 and a recent admission at [address] [place] [address], hypertension, hyperlipidemia, history of DVT, chronic CHF, coronary artery disease and obstructive sleep apnea, chronic hypoxic respiratory failure on oxygen at home at 2 L via nasal cannula who was sent to rehab recently and a return home yesterday from [facility]. Patient had home care nurse to visit him today and his pulse ox was found to be 88%. Patient is on 4 L oxygen recently and stated that his breathing has been worse. Patient did have a cough with productive sputum and no fever no chills. Denied any chest pain. No headache or dizziness. No numbness or tingling. Denied any nausea vomiting or abdominal pain or diarrhea. Patient felt more weak and unable to ambulate. Chest x-ray showed coarse interstitial infiltrates and subsegmental atelectasis are increased compared to old exam. CT cervical spine showed no fracture. Spondylotic changes with neural foraminal impingement at C6-7 unchanged. There is possibly some spinal stenosis at C6-C7 EKG showed sinus rhythm with frequent PVCs. Laboratory data showed WBC 11.0, hemoglobin 15.5 and platelets 170 INR 1.7 Sodium 136, potassium 4.5, bicarb is 32 and BUN 18 creatinine 0.79 and lactic acid 2.2 on admission NT proBNP is 188 and COVID-19 PCR is not detected. 11/27/2020 Patient is resting in a chair and still short of breath and puffing out air. No complaints of chest pain. No nausea vomiting or abdominal pain. Patient is being continued on breathing treatments and antibiotics in the form of vancomycin. Continued on oxygen supplementation. Patient has been afebrile. Laboratory test showed WBC 5.4, hemoglobin 12.8 and platelets 139 INR 1.89 BUN 12 and creatinine 0.8 Pro calcitonin level is 0.05 and bicarb is 33.8 11/28/2020 Patient is currently resting in the bed comfortably. Shortness of breath is improving. Currently on oxygen at 3 L via nasal cannula. Antibiotics have been discontinued. Patient has been afebrile. Continue PT OT. No complaints of chest pain. No nausea vomiting or abdominal pain or diarrhea. Patient is tolerating oral diet. 11/29/2019 Patient is currently resting in the bed comfortably. Shortness of breath is much improved. No complaints of chest pain. No nausea vomiting or abdominal pain. No other acute overnight issues. Patient is currently on 3 L oxygen via nasal cannula and saturating at 96 to 93%. Follow-up CBC and BMP tomorrow. Anticipate discharge to rehab or home with physical therapy in the next 24 to 48 hours. Current medications reviewed. Objective - Vital Signs Vital signs: Vital Signs Temp 98.7 F 11/29/20 18:01 Pulse 59 L 11/29/20 18:01 Resp 20 11/29/20 18:01 BP 117/74 11/29/20 18:01 Pulse Ox 96 11/29/20 18:01 Intake & Output 11/29/20 11/29/20 11/30/20 06:59 18:59 06:59 Output Total 3100 300 Balance -3100 -300 Output: Urine 3100 300 Other: Voiding Method Diaper Diaper External Catheter External Catheter # Bowel Movements 1 1 - Exam PHYSICAL EXAMINATION: Patient is lying in the bed comfortably, mild distress, awake alert and oriented.. HEENT: Normocephalic. Neck is supple. Pupils reactive. Nostrils clear. Oral cavity is moist. Ears reveal no drainage. Neck reveals no JVD, carotid bruits, or thyromegaly. CHEST EXAMINATION: Trachea is central. Symmetrical expansion.Bilateral coarse breath sounds. Bibasilar diminished air entry. CARDIAC: Normal S1, S2 with no gallops. No murmurs ABDOMEN: Soft. Bowel sounds normal. No organomegaly. No abdominal bruits. Extremities: reveal no edema. No clubbing or cyanosis Neurologically awake, alert, oriented x3 with well-coordinated movements. No focal deficits noted Skin: No rash or skin lesions. Psychiatric: Coperative. Nonsuicidal Musculoskeletal: No joint swelling or deformity. Normal range of motion. - Labs CBC & Chem 7: 11/27/20 06:20 11/29/20 05:44 Labs: Abnormal Lab Results - Last 24 Hours (Table) 11/29/20 11/29/20 Range/Units 05:44 07:02 PT 20.3 H (9.9-11.9) sec INR 1.98 H (0.90-1.11) POC Glucose (mg/dL) 114 H (75-99) mg/dL Microbiology - Last 24 Hours (Table) 11/25/20 23:07 Blood Culture - Preliminary Blood No Growth after 72 hours 11/25/20 23:07 Blood Culture - Preliminary Blood No Growth after 72 hours Assessment and Plan Assessment: Acute on chronic hypoxic respiratory failure secondary to pneumonia and recent COVID-19 infection Possible underlying bacterial pneumonia. unlikely. 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 Not in exacerbation. Dementia/memory impairment Anxiety/depression/bipolar disorder Previous history of smoking DVT prophylaxis patient is already on Coumadin. Plan: Patient be continued on O2 via NC. Titrate down FiO2. Continued home medications and PT OT will be consulted. Possible rehab, Prognosis guarded at this time. Further recommendations based on the clinical course. Time with Patient: Greater than 30
[2020-11-30 06:41] LABS: Basophils % (A) 1 %; Eosinophils # (A) 0.2 k/uL (0-0.7); Eosinophils % (A) 3 %; HCT 41.6 % (39.0-53.0); HGB 13.8 gm/dL (13.0-17.5); Lymphocytes # (A) 1.3 k/uL (1.0-4.8); Lymphocytes % (A) 20 %; MCH 30.5 pg (25.0-35.0); MCHC 33.2 g/dL (31.0-37.0); MCV 91.9 fL (80.0-100.0); Mean Platelet Volume 6.9; Monocytes # (A) 0.4 k/uL (0-1.0); Monocytes % (A) 7 %; Neutrophils # (A) 4.4 k/uL (1.3-7.7); Neutrophils % (A) 68 %; Platelet Count 198 k/uL (150-450); RBC 4.53 m/uL (4.30-5.90); RDW 14.2 % (11.5-15.5); WBC 6.4 k/uL (3.8-10.6)
[2020-11-30] MEDS: ASCORBIC ACID 500 MG TAB PO SCH (07:40)
[2020-11-30] MEDS: LORATADINE 10 MG TAB PO SCH (07:40)
[2020-11-30] MEDS: METOPROLOL TARTRATE 25 MG TAB PO SCH (07:40)
[2020-11-30] MEDS: PANTOPRAZOLE 40 MG TABLET PO SCH (07:40)
[2020-11-30] MEDS: AZITHROMYCIN 500 MG TAB PO SCH (07:40)
[2020-11-30] MEDS: amLODIPine 5 MG TAB PO SCH (07:40)
[2020-11-30] MEDS: FLUTICASONE 50MCG/SPRAY NASAL 16GM EA NOSTRIL SCH (07:41)
[2020-11-30] MEDS: FUROSEMIDE 40 MG TAB PO SCH ×2 (07:41→20:18)
[2020-11-30] MEDS: ALBUTEROL HFA INHALER INHALATION SCH ×4 (09:12→19:39)
[2020-11-30 09:36] LABS: INR 1.9 (0.90-1.11); Prothrombin Time 19.6 sec (9.9-11.9)
[2020-11-30 10:07] LABS: African American GFR (CKD) 99.9 (60.0-200.0); Anion Gap 6.4 mmol/L (4.00-12.00); BUN/Creat Ratio 21.25 Ratio (12.00-20.00); Calcium 8.6 mg/dL (8.7-10.3); Carbon Dioxide 35.6 mmol/L (21.6-31.8); Non-African American GFR(CKD) 86.2 (60.0-200.0); Potassium 3.9 mmol/L (3.5-5.5)
--- NOTE | 2020-11-30 11:45 | XR ---
EXAMINATION TYPE: XR chest 1V DATE OF EXAM: 11/30/2020 COMPARISON: 11/25/2020 HISTORY: Shortness of breath TECHNIQUE: Single frontal view of the chest is obtained. FINDINGS: Hyperinflation suggests COPD and there is bibasilar subsegmental consolidation. Heart enla rged. Mild interstitial prominence. No pneumothorax. Hypertrophic and degenerative change of the spin e. IMPRESSION: Interstitial infiltrates and basilar consolidation stable superimposed on a background o f COPD.
--- NOTE | 2020-11-30 13:05 | P.PN ---
Subjective Acute on chronic hypoxic respiratory failure secondary to pneumonia and recent COVID-19 infection Patient is a 75-year-old male with a known history of recently diagnosed COVID- 19 pneumonia on 10/23/2020 and a recent admission at [address] [place] [address], hypertension, hyperlipidemia, history of DVT, chronic CHF, coronary artery disease and obstructive sleep apnea, chronic hypoxic respiratory failure on oxygen at home at 2 L via nasal cannula who was sent to rehab recently and a return home yesterday from [facility]. Patient had home care nurse to visit him today and his pulse ox was found to be 88%. Patient is on 4 L oxygen recently and stated that his breathing has been worse. Patient did have a cough with productive sputum and no fever no chills. Denied any chest pain. No headache or dizziness. No numbness or tingling. Denied any nausea vomiting or abdominal pain or diarrhea. Patient felt more weak and unable to ambulate. Chest x-ray showed coarse interstitial infiltrates and subsegmental atelectasis are increased compared to old exam. CT cervical spine showed no fracture. Spondylotic changes with neural foraminal impingement at C6-7 unchanged. There is possibly some spinal stenosis at C6-C7 EKG showed sinus rhythm with frequent PVCs. Laboratory data showed WBC 11.0, hemoglobin 15.5 and platelets 170 INR 1.7 Sodium 136, potassium 4.5, bicarb is 32 and BUN 18 creatinine 0.79 and lactic acid 2.2 on admission NT proBNP is 188 and COVID-19 PCR is not detected. 11/27/2020 Patient is resting in a chair and still short of breath and puffing out air. No complaints of chest pain. No nausea vomiting or abdominal pain. Patient is being continued on breathing treatments and antibiotics in the form of vanc omycin. Continued on oxygen supplementation. Patient has been afebrile. Laboratory test showed WBC 5.4, hemoglobin 12.8 and platelets 139 INR 1.89 BUN 12 and creatinine 0.8 Pro calcitonin level is 0.05 and bicarb is 33.8 11/28/2020 Patient is currently resting in the bed comfortably. Shortness of breath is improving. Currently on oxygen at 3 L via nasal cannula. Antibiotics have been discontinued. Patient has been afebrile. Continue PT OT. No complaints of chest pain. No nausea vomiting or abdominal pain or diarrhea. Patient is tolerating oral diet. 11/29/2019 Patient is currently resting in the bed comfortably. Shortness of breath is much improved. No complaints of chest pain. No nausea vomiting or abdominal pain. No other acute overnight issues. Patient is currently on 3 L oxygen via nasal cannula and saturating at 96 to 93%. Follow-up CBC and BMP tomorrow. 11/30/2019 Patient looks bit lethargic and drowsy. Patient does have some rhonchi because of which I repeated the chest x-ray showing bibasilar atelectasis although it's mostly atelectasis considering that he didn't have significant improvement compared to yesterday and his lethargy or will change antibiotic to Rocephin. As I did not evaluate the patient is today unsure whether this is an improvement or worsening. Patient will be monitored one more night possibility of discharge tomorrow patient the INR is 1.9. Patient blood pressure is low normal because of which I'll discontinue amlodipine and do not believe patient will need amlodipine at this time. Depending on his improvement patient probably can be discharged back to subacute rehabilitation tomorrow. Review of systems: Unable to obtain due to his clinical condition All inpatient medications were reviewed and appropriate changes in these medications as dictated in the interval history and assessment and plan. Objective - Vital Signs Vital signs: Vital Signs Temp 97.8 F 11/30/20 07:34 Pulse 87 11/30/20 07:34 Resp 20 11/30/20 07:34 BP 110/70 11/30/20 07:34 Pulse Ox 94 L 11/30/20 07:34 Intake & Output 11/29/20 11/30/20 11/30/20 18:59 06:59 18:59 Output Total 300 1300 Balance -300 -1300 Output: Urine 300 1300 Other: Voiding Method Diaper Diaper Diaper External Catheter External Catheter External Catheter # Bowel Movements 1 - Exam PHYSICAL EXAMINATION: GENERAL: Drowsy sleepy lethargic, not in any acute distress. Well developed, well nourished. HEENT: Pupils are round and equally reacting to light. EOMI. No scleral icterus. No conjunctival pallor. Normocephalic, atraumatic. No pharyngeal erythema. No thyromegaly. CARDIOVASCULAR: S1 and S2 present. No murmurs, rubs, or gallops. PULMONARY: Mild expiratory wheezing bilateral rhonchi ABDOMEN: Soft, nontender, nondistended, normoactive bowel sounds. No palpable organomegaly. MUSCULOSKELETAL: No joint swelling or deformity. EXTREMITIES: No cyanosis, clubbing, or pedal edema. NEUROLOGICAL: Gross neurological examination did not reveal any focal deficits. SKIN: No rashes. - Labs CBC & Chem 7: 11/30/20 05:34 11/30/20 05:34 Labs: Abnormal Lab Results - Last 24 Hours (Table) 11/30/20 11/30/20 Range/Units 05:34 05:34 PT 19.6 H (9.9-11.9) sec INR 1.90 H (0.90-1.11) Carbon Dioxide 35.6 H (21.6-31.8) mmol/L BUN/Creatinine Ratio 21.25 H (12.00-20.00) Ratio Calcium 8.6 L (8.7-10.3) mg/dL Microbiology - Last 24 Hours (Table) 11/25/20 23:07 Blood Culture - Preliminary Blood No Growth after 96 hours 11/25/20 23:07 Blood Culture - Preliminary Blood No Growth after 96 hours Assessment and Plan Plan: Acute on chronic hypoxic respiratory failure secondary to pneumonia and recent COVID-19 infection Possible underlying bacterial pneumonia. unlikely. Considering patient's lethargy I'm changing the antibiotic to Rocephin for possible severe tracheobronchitis and I cannot completely rule out bacterial pneumonia. 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 Not in exacerbation. Dementia/memory impairment Anxiety/depression/bipolar disorder Previous history of smoking DVT prophylaxis patient is already on Coumadin. Plan: Patient be continued on O2 via NC. Titrate down FiO2. Continue the Rocephin close clinical monitoring today possibility of discharge tomorrow if the patient has significant improvement.
--- NOTE | 2020-11-30 16:50 | CDI ---
Documentation Clarification Form Date: 11/30/2020 04:33:11 PM From: Bianca Franz RN, CCDS Admit Date: 11/25/2020 10:40:00 PM Patient Name: Mihir Gottlieb Visit Number: [id number] Discharge Date: ATTENTION: The Clinical Documentation Specialists (CDI) and [facility] Coding Staff appreciate your assistance in clarifying documentation. Please respond to the clarification below the line at the bottom and electronically sign. The CDI & [facility] Coding staff will review the response and follow-up if needed. Please note: Queries are made part of the Legal Health Record. If you have any questions, please contact the author of this message via ITS. Dr. Alvin Mott A left ear pressure ulcer was documented in the nursing wound care starting on 11/25. Please render your opinion of this diagnosis. History/Risk Factors: Asthma, Heart Failure, COPD, Dementia, Cognitively delayed, Chronic Respiratory failure on 2/L NC/TC Clinical Indicators: 75-year-old male recently diagnosed COVID-19 pneumonia on 10/23/2020 present on 11/25 with difficulty in breathing. Patient did have a cough with productive sputum and no fever, no chills, he uses O2 per nasal cannula and nursing noted a stage II pressure ulcer behind left ear. Location: left ear Wound description: warm, blackened, stage II Treatment: Monitor skin integrity per protocol (keep pressure off area) Elements for accurate and compliant documentation of an ulcer: *The location/laterality of the ulcer *Etiology (decubitus/pressure, diabetic, PVD) *Stage I-IV, Unstageable, Suspected Deep Tissue Injury (To the deepest stage) *If the ulcer was present at admission (POA) or occurred after admission In your professional opinion, can you please clarify the diagnosis, location, laterality and whether present on admission (POA): Stage 1 Pressure/Decubitus Ulcer (intact skin, non-blanching redness of local area) Stage 2 Pressure/Decubitus Ulcer (Partial thickness, loss of dermis, pink wound bed) Stage 3 Pressure/Decubitus Ulcer (Full thickness tissue loss) Stage 4 Pressure/Decubitus Ulcer (Full thickness tissue loss with exposed bone, tendon, or muscle. May have slough or eschar present) Unstageable Other condition, please specify Unable to determine Please indicate etiology of pressure ulcer (if known). (Last Revision: August 2017) MTDD
[2020-11-30] MEDS ORDERED: WARFARIN 5 MG TAB PO ONE (18:00)
[2020-11-30] MEDS: ATORVASTATIN 40 MG TAB PO SCH (20:18)
[2020-11-30] MEDS: LOSARTAN 25 MG TAB PO SCH (20:18)
[2020-11-30] MEDS: IPRATROPIUM 0.5 MG/2.5 ML NEBU INHALATION SCH ×2 (23:24→23:25)
[2020-12-01 07:01] LABS: Basophils % (A) 1 %; Eosinophils # (A) 0.2 k/uL (0-0.7); Eosinophils % (A) 3 %; HCT 38.9 % (39.0-53.0); HGB 13.1 gm/dL (13.0-17.5); Lymphocytes # (A) 1.2 k/uL (1.0-4.8); Lymphocytes % (A) 23 %; MCH 31.1 pg (25.0-35.0); MCHC 33.7 g/dL (31.0-37.0); MCV 92.3 fL (80.0-100.0); Mean Platelet Volume 7.2; Monocytes # (A) 0.4 k/uL (0-1.0); Monocytes % (A) 8 %; Neutrophils # (A) 3.4 k/uL (1.3-7.7); Neutrophils % (A) 64 %; Platelet Count 211 k/uL (150-450); RBC 4.21 m/uL (4.30-5.90); RDW 14.4 % (11.5-15.5); WBC 5.3 k/uL (3.8-10.6)
[2020-12-01 07:08] LABS: ALT 28 U/L (4-49); AST 21 U/L (17-59); African American GFR (CKD) >90 (>60 ml/min/1.73 sqM); Albumin 2.8 g/dL (3.5-5.0); Alkaline Phosphatase 65 U/L (38-126); Anion Gap 3 mmol/L; Blood Urea Nitrogen 24 mg/dL (9-20); Calcium 8.4 mg/dL (8.4-10.2); Carbon Dioxide 36 mmol/L (22-30); Chloride 98 mmol/L (98-107); Globulin 2.7 g/dL; Glucose 103 mg/dL (74-99); Magnesium 1.9 mg/dL (1.6-2.3); Non-African American GFR(CKD) >90 (>60 ml/min/1.73 sqM); Potassium 3.7 mmol/L (3.5-5.1); Sodium 137 mmol/L (137-145); Total Bilirubin 0.6 mg/dL (0.2-1.3); Total Protein 5.5 g/dL (6.3-8.2)
[2020-12-01] MEDS: METOPROLOL TARTRATE 25 MG TAB PO SCH (09:00)
[2020-12-01] MEDS: PANTOPRAZOLE 40 MG TABLET PO SCH (09:00)
[2020-12-01] MEDS: LORATADINE 10 MG TAB PO SCH (09:00)
[2020-12-01] MEDS: ASCORBIC ACID 500 MG TAB PO SCH (09:00)
[2020-12-01] MEDS: FUROSEMIDE 40 MG TAB PO SCH ×2 (09:01→21:09)
[2020-12-01] MEDS: FLUTICASONE 50MCG/SPRAY NASAL 16GM EA NOSTRIL SCH (09:01)
[2020-12-01] MEDS: ALBUTEROL HFA INHALER INHALATION SCH ×4 (09:04→20:33)
[2020-12-01 09:21] LABS: INR 2.02 (0.90-1.11); Prothrombin Time 20.7 sec (9.9-11.9)
[2020-12-01] MEDS ORDERED: WARFARIN 5 MG TAB PO ONE (18:00)
--- NOTE | 2020-12-01 19:29 | P.PN ---
Subjective Progress Note Date: 12/01/20 75-year-old male male with a known history of recently diagnosed COVID-19 pneumonia on 10/23/2020 with recent admission, discharged to longterm facility, patient readmitted to hospital, due to concern of oxygen saturation and work of breathing. Significant medical history of hypertension, hyperlipidemia, history of DVT, chronic congestive heart failure, coronary artery disease, obstructive sleep apnea, chronic hypoxic respiratory failuredependent on 2 L of oxygen via nasal cannula. Patient evaluated, resting in bed with mild tachypneic respirations and pursed lip breathing. Pat ient able to answer questions appropriate to person and place. Patient confused regarding time and situation. Continue antibiotic therapy for possible pneumonia. Objective - Vital Signs Vital signs: Vital Signs Temp 97.6 F 12/01/20 14:00 Pulse 76 12/01/20 14:00 Resp 22 12/01/20 14:00 BP 102/67 12/01/20 14:00 Pulse Ox 96 12/01/20 14:00 Intake & Output 12/01/20 12/01/20 12/02/20 06:59 18:59 06:59 Output Total 375 Balance -375 Weight 127.006 kg Output: Urine 375 Stool 0 Other: Voiding Method Diaper Diaper # Voids 2 2 - Constitutional General appearance: Present: mild distress, morbidly obese - EENT Eyes: Present: PERRLA ENT: Present: hard of hearing - Respiratory Respiratory: bilateral: diminished (Anterior lung cevallos), rhonchi (Posterior lung cevallos) - Cardiovascular Details: Normal sinus rhythm with occasional PVCs Heart rate: 74 Rhythm: regular Heart sounds: normal: S1, S2 - Peripheral pulses radial pulse Peripheral Pulses: bilateral: Normal - Gastrointestinal General gastrointestinal: Present: normal bowel sounds - Integumentary Integumentary: Present: pale - Musculoskeletal Musculoskeletal: Present: generalized weakness - Psychiatric Psychiatric Comment(s): Patient able to answer questions to person, and place; disoriented to situation and time - Allied health notes Allied health notes reviewed: nursing - Labs CBC & Chem 7: 12/01/20 05:46 12/01/20 05:46 Labs: Abnormal Lab Results - Last 24 Hours (Table) 12/01/20 12/01/20 12/01/20 Range/Units 05:46 05:46 05:46 RBC 4.21 L (4.30-5.90) m/uL Hct 38.9 L (39.0-53.0) % PT 20.7 H (9.9-11.9) sec INR 2.02 H (0.90-1.11) Carbon Dioxide 36 H (22-30) mmol/L BUN 24 H (9-20) mg/dL Glucose 103 H (74-99) mg/dL Total Protein 5.5 L (6.3-8.2) g/dL Albumin 2.8 L (3.5-5.0) g/dL Microbiology - Last 24 Hours (Table) 11/25/20 23:07 Blood Culture - Preliminary Blood No Growth after 120 hours 11/25/20 23:07 Blood Culture - Preliminary Blood No Growth after 120 hours - Imaging and Cardiology Chest x-ray: report reviewed Assessment and Plan Assessment: Acute on chronic hypoxic respiratory failure secondary to pneumonia and recent COVID-19 infection Possible pneumoniacontinue broad-spectrum antibiotic therapy Acute on chronic hypoxic respiratory failure secondary to COPD History of DVTscurrently on warfarin therapy for anticoagulation Hypertension Coronary artery disease CABG Chronic congestive heart failure diastolic Dementia Anxiety Depression Bipolar History of smoking Plan: Continue IV antibiotics for possible pneumonia versus tracheobronchitis Continue bronchodilators for COPD Continue to titrate oxygen for saturations of 90-92% Continue home medications Continue medical management Time with Patient: Greater than 30
[2020-12-01] MEDS: ATORVASTATIN 40 MG TAB PO SCH (21:09)
[2020-12-01] MEDS: LOSARTAN 25 MG TAB PO SCH (21:09)
[2020-12-01] MEDS: IPRATROPIUM 0.5 MG/2.5 ML NEBU INHALATION SCH (21:41)
[2020-12-02 06:09] LABS: Basophils # (A) 0.1 k/uL (0-0.2); Basophils % (A) 1 %; Eosinophils # (A) 0.1 k/uL (0-0.7); Eosinophils % (A) 2 %; HCT 39.6 % (39.0-53.0); HGB 13.1 gm/dL (13.0-17.5); Lymphocytes # (A) 1.3 k/uL (1.0-4.8); Lymphocytes % (A) 23 %; MCH 30.3 pg (25.0-35.0); MCV 91.9 fL (80.0-100.0); Mean Platelet Volume 6.8; Monocytes # (A) 0.4 k/uL (0-1.0); Monocytes % (A) 7 %; Neutrophils # (A) 3.7 k/uL (1.3-7.7); Neutrophils % (A) 65 %; Platelet Count 211 k/uL (150-450); RBC 4.31 m/uL (4.30-5.90); RDW 14.5 % (11.5-15.5); WBC 5.8 k/uL (3.8-10.6)
[2020-12-02 06:24] LABS: ALT 32 U/L (4-49); AST 25 U/L (17-59); African American GFR (CKD) >90 (>60 ml/min/1.73 sqM); Albumin 2.9 g/dL (3.5-5.0); Albumin/Globulin Ratio 1.1; Alkaline Phosphatase 65 U/L (38-126); Anion Gap 1 mmol/L; Blood Urea Nitrogen 21 mg/dL (9-20); Calcium 8.4 mg/dL (8.4-10.2); Carbon Dioxide 35 mmol/L (22-30); Chloride 100 mmol/L (98-107); Globulin 2.7 g/dL; Glucose 108 mg/dL (74-99); Non-African American GFR(CKD) 86 (>60 ml/min/1.73 sqM); Potassium 3.7 mmol/L (3.5-5.1); Sodium 136 mmol/L (137-145); Total Bilirubin 0.7 mg/dL (0.2-1.3); Total Protein 5.6 g/dL (6.3-8.2)
[2020-12-02] MEDS: ALBUTEROL HFA INHALER INHALATION SCH ×3 (07:14→15:20)
--- NOTE | 2020-12-02 07:22 | P.PN ---
Subjective Progress Note Date: 12/02/20 Principal diagnosis: Dyspnea 75-year-old male male with a known history of recently diagnosed COVID-19 pneumonia on 10/23/2020 with recent admission, [facility], patient readmitted to hospital, due to concern of oxygen saturation and work of breathing. Significant medical history of hypertension, hyperlipidemia, history of DVT, chronic congestive heart failure, coronary artery disease, obstructive sleep apnea, chronic hypoxic respiratory failuredependent on 2 L of oxygen via nasal cannula. Patient evaluated, resting in bed comfortably.Patient able to answer questions appropriate to person and place. Patient confused regarding time and situation. Possible placement to extended care facility for rehab. Objective - Vital Signs Vital signs: Vital Signs Temp 98.3 F 12/02/20 02:31 Pulse 61 12/02/20 02:31 Resp 16 12/01/20 20:30 BP 105/70 12/02/20 02:31 Pulse Ox 92 L 12/02/20 02:31 Intake & Output 12/01/20 12/02/20 12/02/20 18:59 06:59 18:59 Weight 127.006 kg Other: Voiding Method Diaper Diaper # Voids 2 1 # Bowel Movements 1 - Constitutional General appearance: Present: obese - EENT Eyes: Present: EOMI, PERRLA Ears: bilateral: normal - Neck Carotids: bilateral: upstroke normal Thyroid: bilateral: normal size - Respiratory Respiratory: bilateral: CTA (Anterior lung cevallos), diminished (Posterior lung cevallos) - Cardiovascular Details: Normal sinus rhythm with occasional PVCs Rhythm: regular Heart sounds: normal: S1, S2 - Peripheral pulses radial pulse Peripheral Pulses: bilateral: Normal - Gastrointestinal General gastrointestinal: Present: normal bowel sounds - Neurologic Neurologic: Present: CNII-XII intact - Musculoskeletal Musculoskeletal: Present: generalized weakness - Psychiatric Psychiatric Comment(s): Personal alert to person and place; confuse to situation and time - Allied health notes Allied health notes reviewed: nursing - Labs CBC & Chem 7: 12/02/20 05:39 12/02/20 05:39 Labs: Abnormal Lab Results - Last 24 Hours (Table) 12/01/20 12/02/20 Range/Units 05:46 05:39 PT 20.7 H (9.9-11.9) sec INR 2.02 H (0.90-1.11) Sodium 136 L (137-145) mmol/L Carbon Dioxide 35 H (22-30) mmol/L BUN 21 H (9-20) mg/dL Glucose 108 H (74-99) mg/dL Total Protein 5.6 L (6.3-8.2) g/dL Albumin 2.9 L (3.5-5.0) g/dL Microbiology - Last 24 Hours (Table) 11/25/20 23:07 Blood Culture - Final Blood No Growth after 144 hours 11/25/20 23:07 Blood Culture - Final Blood No Growth after 144 hours - Imaging and Cardiology Chest x-ray: pending Assessment and Plan Assessment: Acute on chronic hypoxic respiratory failure secondary to pneumonia and recent COVID-19 infection Acute on chronic hypoxic respiratory failure secondary to COPD History of DVTscurrently on warfarin therapy for anticoagulation Hypertension Coronary artery disease CABG Chronic congestive heart failure diastolic Dementia Anxiety Depression Bipolar History of smoking Plan: Continue bronchodilators for COPD Continue to titrate oxygen for saturations of 90-92% Continue home medications Continue medical management Hopeful discharge to extended's facility today Time with Patient: Greater than 30
--- NOTE | 2020-12-02 09:20 | XR ---
EXAMINATION TYPE: XR chest 2V DATE OF EXAM: 12/02/2020 COMPARISON: 11/30/2020 TECHNIQUE: PA and lateral views submitted. HISTORY: Shortness of breath FINDINGS: Hyperinflation suggests COPD and there is bibasilar subsegmental consolidation. Heart enlarged. Mild interstitial prominence. No pneumothorax. Hypertrophic and degenerative change of the spine. IMPRESSION: 1. COPD with interstitial and basilar infiltrate stable in appearance.
[2020-12-02] MEDS: LORATADINE 10 MG TAB PO SCH (10:03)
[2020-12-02] MEDS: FUROSEMIDE 40 MG TAB PO SCH (10:03)
[2020-12-02] MEDS: ASCORBIC ACID 500 MG TAB PO SCH (10:03)
[2020-12-02] MEDS: FLUTICASONE 50MCG/SPRAY NASAL 16GM EA NOSTRIL SCH (10:03)
[2020-12-02] MEDS: PANTOPRAZOLE 40 MG TABLET PO SCH (10:03)
[2020-12-02] MEDS: METOPROLOL TARTRATE 25 MG TAB PO SCH (10:03)
[2020-12-02 10:14] LABS: INR 1.76 (0.90-1.11); Prothrombin Time 18.2 sec (9.9-11.9)
[2020-12-02 14:18] VITALS: BP 103/68; PULSE 85; RESP 18; TEMP 98.3
--- NOTE | 2020-12-02 15:12 | P.DS ---
Providers Date of admission: 11/25/20 22:40 Expected date of discharge: 12/02/20 Attending physician: Alvin Mott Consults: NONE NOTED Primary care physician: Alvin Mott Hospital Course: 75-YEAR-OLD MALE WITH A KNOWN HISTORY OF RECENTLY DIAGNOSED COVID-19 PNEUMONIA ON 10/23/2020 WITH RECENT ADMISSION, DISCHARGED TO SKILLED FACILITY, PT READMITTED TO HOSPITAL, DUE TO CONCERN OF OXYGEN SATURATION AND WORK OF BREATHING. SIGNIFICANT MEDICAL HISTORY OF HYPERTENSION, HYPERLIPIDEMIA, HX OF DVT'S ,CHRONIC CONGESTIVE HEART FAILURE, CAD, OBSTRUCTIVE SLEEP APNEA, CHRONIC HYPOXIC RESPIRATORY FAILURE-DEPENDENT ON 2 LITERS OF OXYGEN VIA NASAL CANNUAL. PATIENT TOLERATED HOSPITAL ADMISSION, BRONCHODILATORS, STEROIDS, AND BROAD SPECTRUM ANTIBIOTICS. dUE TO PATIENTS DISEASE PROCESS. PATIENT REQUIRES [facility] CARE DUE TO DISEASE PROCESS AND DECLINING DEMENTIA. Assessment: ACUTE ON CHRONIC HYPOXIC RESPIRATORY FAILURE SECONDARY TO PNEUMONIA AND RECENT COVID-19 INFECTION ACUTE ON CHRONIC HYPOXIC RESPIRATORY FAILURE SECONDARY TO COPD HX OF DVTS CAD CABG CHRONIC CONGESTIVE HEART FAILURE-DIASTOLIC DEMENTIA ANXIETY DEPRESSION BIPOLAR HX OF SMOKING Health Concerns: DEMENTIA DIFFICULTY WITH AMBULATION Pertinent Studies: CHEST X-RAY Procedures: NONE Patient Condition at Discharge: Stable Plan - Discharge Summary Discharge Rx Participant: Yes New Discharge Prescriptions: Continue Atorvastatin [Lipitor] 40 mg PO HS Losartan [Cozaar] 25 mg PO HS Warfarin [Coumadin] 5 mg PO [id number] Levocetirizine Dihydrochloride [Xyzal] 5 mg PO DAILY Loperamide [Imodium] 2 mg PO DAILY PRN PRN Reason: Diarrhea Ipratropium [place] [Atrovent Hfa] 2 puff INHALATION RT-DAILY Fluticasone Nasal [place] [Flonase Nasal Nisula] 2 spr EA NOSTRIL DAILY Albuterol Nebulized [Ventolin Nebulized] 2.5 mg INHALATION RT-QID@08,12,16,20 Metoprolol Tartrate [Lopressor] 12.5 mg PO DAILY Furosemide [Lasix] 40 mg PO BID #60 tablet amLODIPine [Norvasc] 5 mg PO DAILY tab Omeprazole 20 mg PO BID Ascorbic Acid [Vitamin C] 500 mg PO DAILY Zinc 50 mg PO DAILY ALPRAZolam [Xanax] 0.25 mg PO HS PRN 3 Days #3 tab PRN Reason: Anxiety Discharge Medication List Atorvastatin [Lipitor] 40 mg PO HS 09/12/20 [History] Levocetirizine Dihydrochloride [Xyzal] 5 mg PO DAILY 09/27/20 [History] Losartan [Cozaar] 25 mg PO HS 09/27/20 [History] Warfarin [Coumadin] 5 mg PO [id number] 09/27/20 [History] Albuterol Nebulized [Ventolin Nebulized] 2.5 mg INHALATION RT-QID@08,12,16,20 10/16/20 [History] Fluticasone Nasal [place] [Flonase Nasal Nisula] 2 spr EA NOSTRIL DAILY 10/16/20 [History] Ipratropium [place] [Atrovent Hfa] 2 puff INHALATION RT-DAILY 10/16/20 [History] Loperamide [Imodium] 2 mg PO DAILY PRN 10/16/20 [History] Metoprolol Tartrate [Lopressor] 12.5 mg PO DAILY 10/16/20 [History] Furosemide [Lasix] 40 mg PO BID #60 tablet 10/21/20 [Rx] amLODIPine [Norvasc] 5 mg PO DAILY tab 10/21/20 [Rx] Ascorbic Acid [Vitamin C] 500 mg PO DAILY 11/02/20 [History] Omeprazole 20 mg PO BID 11/02/20 [History] Zinc 50 mg PO DAILY 11/02/20 [History] ALPRAZolam [Xanax] 0.25 mg PO HS PRN 3 Days #3 tab 11/12/20 [Rx] Follow up Appointment(s)/Referral(s): Alvin Mott MD [Primary Care Provider] - 1-2 days Discharge Disposition: TRANSFER TO SNF/ECF
[2020-12-02] MEDS ORDERED: WARFARIN 3 MG TAB PO ONE (18:00)
--- NOTE | 2020-12-07 15:46 | P.PN ---
Progress Note - Text Progress Note Date: 11/30/20 (Physician clarification) Physician clarification unstable wound
--- NOTE | 2020-12-16 09:35 | P.PN ---
Progress Note - Text Progress Note Date: 11/30/20 unstageable wound left ear, Prior on admission Physician clarification complete
== END 2020-12-02 16:24 | DRG 193 ==
LOC: EC 20:09 → 4SSUR 22:40
PROVIDERS: ADMIT Family Medicine; ATTEND Family Medicine
PROC: 5A09557 Assistance with Respiratory Ventilation, Greater than 96 Consecutive Hours, Continuous Positive Airway Pressure (ICD-10-PCS; principal; 2020-11-26)
DX: J15.9 Unspecified bacterial pneumonia (principal); J96.21 Acute and chronic respiratory failure with hypoxia; I50.32 Chronic diastolic (congestive) heart failure; J44.0 Chronic obstructive pulmonary disease with (acute) lower respiratory infection; J44.1 Chronic obstructive pulmonary disease with (acute) exacerbation; J98.11 Atelectasis; F03.90 Unspecified dementia, unspecified severity, without behavioral disturbance, psychotic disturbance, mood disturbance, and anxiety; I11.0 Hypertensive heart disease with heart failure; F31.9 Bipolar disorder, unspecified; E66.01 Morbid (severe) obesity due to excess calories; Z20.822 Contact with and (suspected) exposure to COVID-19; I49.3 Ventricular premature depolarization; G47.33 Obstructive sleep apnea (adult) (pediatric); E78.5 Hyperlipidemia, unspecified; I25.10 Atherosclerotic heart disease of native coronary artery without angina pectoris; K58.9 Irritable bowel syndrome, unspecified; M54.2 Cervicalgia; M48.02 Spinal stenosis, cervical region; F41.9 Anxiety disorder, unspecified; H91.90 Unspecified hearing loss, unspecified ear; Z68.38 Body mass index [BMI] 38.0-38.9, adult; Z99.81 Dependence on supplemental oxygen; Z79.01 Long term (current) use of anticoagulants; Z79.899 Other long term (current) drug therapy; Z86.16 Personal history of COVID-19; Z87.891 Personal history of nicotine dependence; Z86.718 Personal history of other venous thrombosis and embolism; Z86.711 Personal history of pulmonary embolism; Z87.440 Personal history of urinary (tract) infections; Z90.89 Acquired absence of other organs; Z90.79 Acquired absence of other genital organ(s); Z87.438 Personal history of other diseases of male genital organs; Z98.52 Vasectomy status; Z87.39 Personal history of other diseases of the musculoskeletal system and connective tissue; Z95.1 Presence of aortocoronary bypass graft; Z71.3 Dietary counseling and surveillance; Z98.890 Other specified postprocedural states; Z80.9 Family history of malignant neoplasm, unspecified; Z81.8 Family history of other mental and behavioral disorders
CPT/HCPCS: 36415; 71045; 71046; 72125; 80048; 80053; 80202; 82565; 83605; 83735; 83880; 84145; 84484; 85025; 85610; 85730; 87040; 87635; 93005; 94640; 94660; 96365; 96375; 99285